=== PATIENT | female | born 1985 | race Caucasian/White ===

== ENCOUNTER 2020-01-13 15:34 | Outpatient (REF) | payer MEDICAID, SELFPAY | END 2020-01-13 15:35 | disposition home or self-care (01) | LOC: HO.LAB 15:34 | PROVIDERS: PCP Family Medicine; Visit Provider Internal Medicine | DX: Z20.828 Contact with and (suspected) exposure to other viral communicable diseases (principal) | CPT/HCPCS: 87635 ==

== ENCOUNTER → 2020-02-03 11:19 | Outpatient (BNVA) | payer MEDICAID, SELFPAY | PROVIDERS: Visit Provider Advanced Practice Midwife | DX: Z76.89 Persons encountering health services in other specified circumstances (principal) ==

== ENCOUNTER → 2020-04-03 11:07 | Outpatient (BNVA) | payer MEDICAID, SELFPAY | PROVIDERS: PCP Family Medicine; Visit Provider Advanced Practice Midwife | DX: Z76.89 Persons encountering health services in other specified circumstances (principal) ==

== ENCOUNTER 2020-04-07 15:48 | Outpatient (REF) | payer MEDICAID, SELFPAY ==
--- NOTE | 2020-04-07 | US_ITS ---
EXAMINATION: ULTRASOUND PELVIS COMPLETE. CLINICAL INFORMATION: Right ovarian cyst. COMPARISON: Ultrasound pelvis 11/09/2019 TECHNIQUE: Transabdominal and transvaginal ultrasound pelvis is performed. FINDINGS: The uterus is anteverted and anteflexed measuring 7.0 cm in length, 3.1 cm in AP and 4.4 cm in transverse dimension. The endometrial thickness is 0.3 cm with trace free fluid. There are small nabothian cysts seen in the cervix. The right ovary measures 2.2 x 1.0 x 2.3 cm and volume 2.7 mL. There is anechoic cyst with peripheral echogenic nodular area in the right adnexa exophytic to ovary measuring 2.4 x 2.1 x 2.0 cm. The left ovary measures 2.7 x 1.8 x 2.3 cm and volume 5.9 mL. There is corpus luteal cyst measuring 1.7 x 1.4 x 1.7 cm. There is no free fluid in the cul-de-sac. US/US pelvic complete IMPRESSION: 1. Multiple small nabothian cysts in the cervix region. 2. Trace free fluid within the endometrial canal otherwise the uterus is unremarkable. 3. Right ovarian 2.4 cm cyst with an echogenic nodular area in the periphery. Previously the cyst measures 2.5 cm. 4. Heterogenous appearing left ovarian cyst likely hemorrhagic or corpus luteal cyst. It measures 1.7 cm. Previously it measured 1.4 cm
--- NOTE | 2020-04-07 | US_ITS ---
EXAMINATION: ULTRASOUND PELVIS COMPLETE. CLINICAL INFORMATION: Right ovarian cyst. COMPARISON: Ultrasound pelvis 11/09/2019 TECHNIQUE: Transabdominal and transvaginal ultrasound pelvis is performed. FINDINGS: The uterus is anteverted and anteflexed measuring 7.0 cm in length, 3.1 cm in AP and 4.4 cm in transverse dimension. The endometrial thickness is 0.3 cm with trace free fluid. There are small nabothian cysts seen in the cervix. The right ovary measures 2.2 x 1.0 x 2.3 cm and volume 2.7 mL. There is anechoic cyst with peripheral echogenic nodular area in the right adnexa exophytic to ovary measuring 2.4 x 2.1 x 2.0 cm. The left ovary measures 2.7 x 1.8 x 2.3 cm and volume 5.9 mL. There is corpus luteal cyst measuring 1.7 x 1.4 x 1.7 cm. There is no free fluid in the cul-de-sac. US/US transvaginal IMPRESSION: 1. Multiple small nabothian cysts in the cervix region. 2. Trace free fluid within the endometrial canal otherwise the uterus is unremarkable. 3. Right ovarian 2.4 cm cyst with an echogenic nodular area in the periphery. Previously the cyst measures 2.5 cm. 4. Heterogenous appearing left ovarian cyst likely hemorrhagic or corpus luteal cyst. It measures 1.7 cm. Previously it measured 1.4 cm
== END 2020-04-07 15:49 | disposition home or self-care (01) ==
LOC: HO.US 15:48
PROVIDERS: Visit Provider Advanced Practice Midwife
DX: N83.201 Unspecified ovarian cyst, right side (principal)
CPT/HCPCS: 76830; 76856

== ENCOUNTER → 2020-04-14 15:40 | Outpatient (BNVA) | payer MEDICAID, SELFPAY | PROVIDERS: Visit Provider Advanced Practice Midwife ==

== ENCOUNTER → 2020-04-15 15:16 | Outpatient (BNVA) | payer MEDICAID, SELFPAY | PROVIDERS: Visit Provider Advanced Practice Midwife | DX: Z30.42 Encounter for surveillance of injectable contraceptive (principal) | CPT/HCPCS: 96372; 99211; J1050 ==

== ENCOUNTER → 2020-04-22 15:47 | Outpatient (BNVA) | payer MEDICAID, SELFPAY | PROVIDERS: Visit Provider Nurse Practitioner | DX: Z76.89 Persons encountering health services in other specified circumstances (principal) ==

== ENCOUNTER 2020-04-24 16:03 | Outpatient (REF) | payer MEDICAID, SELFPAY ==
[2020-04-24 17:01] LABS: MANUAL DIFF FLAG NO
[2020-04-24 17:12] LABS: Basophils Percent Auto 0.5 % (0-2); Eosinophils Absolute Auto 0.1 X10*3/uL (0.0-0.4); Eosinophils Percent Auto 1.8 % (0-4); Hematocrit 37.2 % (37-47); Imm Gran Abs Auto 0.01 X10*3/uL (0.00-0.03); Imm Gran Pct Auto 0.2 % (0.0-0.4); Lymphocytes Absolute Auto 2.9 X10*3/uL (1.2-4.9); Mean Corpuscular HGB Conc 32.3 g/dl (31.0-35.0); Mean Corpuscular Hemoglobin 28.9 pg (27.0-33.0); Mean Corpuscular Volume 89.6 fL (80-98); Mean Platelet Volume 11.2 fL (9.4-12.3); Monocytes Absolute Auto 0.4 X10*3/uL (0.1-1.2); Monocytes Percent Auto 5.3 % (2-11); Neutrophils Absolute Auto 3.2 X10*3/uL (2.0-8.3); Neutrophils Percent Auto 48.2 % (45-73); Platelet Count 228 X10*3/uL (160-400); Red Blood Count 4.15 X10*6/uL (4.20-5.50); Red Cell Distribution Width 13.4 % (11.0-16.0); White Blood Count 6.6 X10*3/uL (4.8-10.8)
[2020-04-24 17:57] LABS: Thyroid Stimulating Hormone 1.05 uIU/mL (0.32-4.0)
[2020-04-25 09:27] LABS: CA-125 7 U/mL (<35)
== END 2020-04-24 16:04 | disposition home or self-care (01) ==
LOC: HO.LAB 16:03
PROVIDERS: Absent Provider Advanced Practice Midwife; PCP Family Medicine; Visit Provider Nurse Practitioner
DX: N83.201 Unspecified ovarian cyst, right side (principal); R10.9 Unspecified abdominal pain; N92.1 Excessive and frequent menstruation with irregular cycle; D64.9 Anemia, unspecified
CPT/HCPCS: 36415; 84443; 85025; 86304

== ENCOUNTER 2020-04-27 | Outpatient (REF) | payer MEDICAID, SELFPAY | END 2020-04-27 00:01 | disposition home or self-care (01) | LOC: HO.LNP | PROVIDERS: Visit Provider Nurse Practitioner | DX: R10.9 Unspecified abdominal pain (principal) | CPT/HCPCS: 87338 ==

== ENCOUNTER → 2020-05-01 15:45 | Outpatient (BNVA) | payer MEDICAID, SELFPAY | PROVIDERS: PCP Family Medicine; Visit Provider Advanced Practice Midwife ==

== ENCOUNTER 2020-05-05 16:51 | Emergency (ER) | payer MEDICAID, SELFPAY ==
--- NOTE | ~2020-05-05 | US_ITS ---
EXAMINATION: ULTRASOUND PELVIS COMPLETE. CLINICAL INFORMATION: Menorrhagia. COMPARISON: 04/07/2020 and 11/09/2019 TECHNIQUE: Transabdominal and transvaginal ultrasound pelvis is performed utilizing grayscale and color Doppler technique. FINDINGS: Uterus is normal in size and configuration measuring 7.2 x 4.2 x 5.2 cm. There is fluid and debris (likely clock) within the endometrial canal, rendering accurate measurement of the endometrial signature is difficult, however does not appear thickened and measures approximately 2 mm in bilayer thickness. Cervix contains pulmonary team cysts but is otherwise unremarkable. Ovaries are normal in size and appearance measuring 4.4 x 3.5 x 2.4 cm on the right and 2.2 x 2.2 x 1.6 cm and the left. There is a 2.2 cm simple cyst within the right ovary. No suspicious ovarian or adnexal cyst/mass. No free fluid. US/US pelvic complete IMPRESSION: * Fluid and debris likely representing clot present within the endometrial canal. No blood flow within the echogenic debris within the uterus to suggest that it represents viable tissue such as a polyp or mass. * Physiologic ovarian follicles present bilaterally. No suspicious adnexal cyst or mass.
--- NOTE | ~2020-05-05 | US_ITS ---
EXAMINATION: ULTRASOUND PELVIS COMPLETE. CLINICAL INFORMATION: Menorrhagia. COMPARISON: 04/07/2020 and 11/09/2019 TECHNIQUE: Transabdominal and transvaginal ultrasound pelvis is performed utilizing grayscale and color Doppler technique. FINDINGS: Uterus is normal in size and configuration measuring 7.2 x 4.2 x 5.2 cm. There is fluid and debris (likely clock) within the endometrial canal, rendering accurate measurement of the endometrial signature is difficult, however does not appear thickened and measures approximately 2 mm in bilayer thickness. Cervix contains pulmonary team cysts but is otherwise unremarkable. Ovaries are normal in size and appearance measuring 4.4 x 3.5 x 2.4 cm on the right and 2.2 x 2.2 x 1.6 cm and the left. There is a 2.2 cm simple cyst within the right ovary. No suspicious ovarian or adnexal cyst/mass. No free fluid. US/US transvaginal IMPRESSION: * Fluid and debris likely representing clot present within the endometrial canal. No blood flow within the echogenic debris within the uterus to suggest that it represents viable tissue such as a polyp or mass. * Physiologic ovarian follicles present bilaterally. No suspicious adnexal cyst or mass.
[2020-05-05 17:03] VITALS: BP 137/76; PULSE 80; RESP 18; TEMP 36.8; O2SAT 99; BMI 29.3
--- NOTE | 2020-05-05 18:31 | ED.FEMALEGU ---
HPI - Female Genitourinary General Chief complaint: Vaginal Bleeding Stated complaint: heavy menstrual bleeding Source: patient Mode of arrival: ambulatory Limitations: no limitations History of Present Illness HPI Narrative: 34-year-old female with past medical history of ovarian cysts, anemia, menorrhagia, GERD, asthma, depression, anxiety, and migraines presents with excessive vaginal bleeding for 10 days. She states that this. Is much longer than normal, has been going through 2-4 pads per hour since last Monday, feels dizzy, weak, and nauseous. MD elicited complaint: vaginal bleeding Onset (ago): day(s) (10) Location of symptoms: vaginal Severity: severe Quality of pain: cramping and aching Consistency: constant Vaginal discharge: none Vaginal bleeding: heavy, dark red, clots, # pads per hour (2-4) and # pads per day (20) Relieving factors: none Associated symptoms: abdominal pain, weakness and nausea Treatment prior to arrival: NSAIDs Sexual activity: No Patient : No Related Data : 3 Para: 3 Total number of abortions (spontaneous and elective): 0 Home Medications Medication Instructions Recorded Confirmed albuterol sulfate 90 mcg/actuation 1 inh INHALATION QID 01/15/20 01/15/20 aerosol inhaler amitriptyline 10 mg tablet 10 mg PO DAILY 01/15/20 01/15/20 [id number] 250 1 tab PO Q4-6H PRN 01/15/20 01/15/20 mg-250 mg-65 mg tablet cholecalciferol (vitamin D3) 25 25 mcg PO DAILY 01/15/20 01/15/20 mcg (1,000 unit) tablet cyclobenzaprine 10 mg tablet 10 mg PO BEDTIME 01/15/20 01/15/20 famotidine 20 mg tablet 20 mg PO BID 01/15/20 01/15/20 fluticasone propionate 50 1 spray INTRANASAL DAILY 01/15/20 01/15/20 mcg/actuation nasal spray,suspension ketoconazole 2 % topical cream 1 applic TOPICAL DAILY 01/15/20 01/15/20 loratadine 10 mg tablet 10 mg PO DAILY 01/15/20 01/15/20 montelukast 10 mg tablet 10 mg PO BEDTIME 01/15/20 01/15/20 ondansetron HCl 4 mg tablet 4 mg PO Q8H 01/15/20 01/15/20 sumatriptan succinate 50 mg tablet 50 mg PO Q2-4H PRN 01/15/20 01/15/20 trazodone 50 mg tablet 25 mg PO DAILY 01/15/20 01/15/20 Previous Rx's Medication Instructions Recorded dicyclomine 20 mg tablet 20 mg PO QID 30 Days #120 tab 04/22/20 Allergies Allergy/AdvReac Type Severity Reaction Status Date / Time No Known Allergies Allergy Verified 04/14/20 16:06 [No Known Allergies*] Review of Systems Review of Systems: Constitutional: No Fever, No Chills ENT/Mouth: No sore throat, No Rhinorrhea Eyes: No Eye Pain, No Redness Cardiovascular: No Chest Pain, No SOB Respiratory: No Cough, No Sputum, No Wheezing Gastrointestinal: positive Nausea, No Vomiting, No Diarrhea, positive abdominal pain, Genitourinary: positive irregular bleeding, No Dysuria, No Urinary Frequency, positive pelvic pain Musculoskeletal: No Myalgias Skin: No rash Neuro: Positive Weakness, No Headache Psych: No Anxiety/Panic, No Depression Heme/Lymph: No bruising, No Lymphadenopathy Endocrine: No Polyuria, No Polydipsia Yes all other systems are reviewed and are negative [facility] Past Medical History Surgical History Hx of tubal ligation : 3 Para: 3 Total number of abortions (spontaneous and elective): 0 Family History Family History Mother Diabetes HTN (hypertension) Asthma Brother Asthma Social History Social History Household Members: Children Alcohol intake: never Smoking Status: Former smoker Advance Directives: No Advance Directives Information Provided: No Current occupational status: employed Current occupation: [employer] Sexual orientation: Straight/Heterosexual Gender identity: female Physical Exam Vital Signs: Vital Signs: Last Vital Signs Temp 98.2 F 05/05/20 17:03 Pulse 80 05/05/20 17:03 Resp 18 05/05/20 17:03 BP 137/76 05/05/20 17:03 Pulse Ox 99 05/05/20 17:03 Body Mass Index 29.3 Appearance: Alert. Oriented X3. No acute distress. Eyes: Pupils equal, round and reactive to light. ENT: Pharynx normal. Neck: Normal inspection. Neck supple. CVS: Normal heart rate and rhythm. Pulses normal. Respiratory: No respiratory distress. Breath sounds normal. Abdomen: Soft and nontender. Skin: Skin warm and dry. Normal skin color. Normal skin turgor. Extremities: No lower extremity edema. Neuro: No motor deficit. No sensory deficit. : External Female Exam: normal external appearance and normal appearance of the urethra Speculum Exam - Vagina: normal appearance of the vagina, normal palpation and vaginal bleeding Speculum Exam - Cervix: normal appearance of the cervix and normal palpation Bimanual exam- vagina & uterus: normal bimanual exam, normal palpation, normal palpation and uterine mobility normal Bimanual Exam- Adnexa, other: normal adnexae OB/external & speculum: vaginal bleeding Course Course Course Narrative: 34-year-old female with past medical history of menorrhagia, ovarian cyst and fibroids presents 10 days of excessive vaginal bleeding. Plan of care is for CBC, Chem 7, type and screen, and pelvic ultrasound. Pelvic exam was normal with the exception of scant dark red bleeding, no tissue in the cervical os or vault. CBC shows H&H of 11.3/34.2 which is better than her prior values. Pelvic ultrasound negative for or findings needing emergent intervention. 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 Patient verbalized understanding of and agrees to plan of care discharge home. MDM - Female Genitourinary Differential Diagnosis Differential diagnosis: Likely urinary tract infection, cervicitis, ruptured ovarian cyst, cystitis and dysmenorrhea Medical Records Attestation: I reviewed the patient's medical records. Lab Data Attestation: I reviewed the patient's lab results. Result diagrams: 05/05/20 18:58 05/05/20 18:58 Labs: Lab Results 05/05/20 05/05/20 05/05/20 Range/Units 18:58 18:58 18:58 WBC 6.9 (4.8-10.8) X10*3/uL RBC 3.85 L (4.20-5.50) X10*6/uL Hgb 11.3 L (12.0-16.0) g/dl Hct 34.2 L (37-47) % MCV 88.8 (80-98) fL MCH 29.4 (27.0-33.0) pg MCHC 33.0 (31.0-35.0) g/dl RDW 12.8 (11.0-16.0) % Plt Count 225 (160-400) X10*3/uL MPV 10.7 (9.4-12.3) fL Immature Gran % (Auto) 0.1 (0.0-0.4) % Neut % (Auto) 45.3 (45-73) % Lymph % (Auto) 47.0 H (20-40) % [place] % (Auto) 5.7 (2-11) % Eos % (Auto) 1.5 (0-4) % Baso % (Auto) 0.4 (0-2) % Lymph # (Auto) 3.2 (1.2-4.9) X10*3/uL [place] # (Auto) 0.4 (0.1-1.2) X10*3/uL Eos # (Auto) 0.1 (0.0-0.4) X10*3/uL Baso # (Auto) 0.0 (0.0-0.2) X10*3/uL Abs Immat Gran (auto) 0.01 (0.00-0.03) X10*3/uL Absolute Neuts (auto) 3.1 (2.0-8.3) X10*3/uL Absolute Nucleated RBC 0.000 (0.0-0.012) X10*3/uL Nucleated RBC % (auto) 0.0 (0.0-0.2) /100WBC PT 14.1 H (10.8-13.0) SEC INR 1.2 H (0.9-1.1) APTT 32.7 (24.1-38.0) SEC Sodium 139 (135-145) mmol/L Potassium 3.7 (3.3-5.1) mmol/L Chloride 107 (96-108) mmol/L Carbon Dioxide 23 (22-29) mmol/L Anion Gap 13 (12-20) BUN 12 (9-16) mg/dL Creatinine 0.80 (0.5-1.4) mg/dL Estim Creat Clear Calc 109.3 Estimated GFR > 60 Random Glucose 90 (60-115) mg/dL Calcium 9.1 (8.4-10.2) mg/dL Beta HCG, Quant < 2 mIU/mL Urine Color Urine Appearance Urine pH (5.0-8.0) Ur Specific [place] (1.005-1.025) Urine Protein (NEG-TRACE) MG/DL Urine Glucose (UA) (NEG) MG/DL Urine Ketones (NEG) MG/DL Urine Blood (NEG) Urine Nitrite (NEG) Ur Leukocyte Esterase (NEG) Urine RBC (0) /HPF Urine WBC (0-4) /HPF Ur Squamous Epith Cells /LPF Urine Bacteria /LPF Blood Type Antibody Screen 05/05/20 05/05/20 Range/Units 18:58 21:08 WBC (4.8-10.8) X10*3/uL RBC (4.20-5.50) X10*6/uL Hgb (12.0-16.0) g/dl Hct (37-47) % MCV (80-98) fL MCH (27.0-33.0) pg MCHC (31.0-35.0) g/dl RDW (11.0-16.0) % Plt Count (160-400) X10*3/uL MPV (9.4-12.3) fL Immature Gran % (Auto) (0.0-0.4) % Neut % (Auto) (45-73) % Lymph % (Auto) (20-40) % [place] % (Auto) (2-11) % Eos % (Auto) (0-4) % Baso % (Auto) (0-2) % Lymph # (Auto) (1.2-4.9) X10*3/uL [place] # (Auto) (0.1-1.2) X10*3/uL Eos # (Auto) (0.0-0.4) X10*3/uL Baso # (Auto) (0.0-0.2) X10*3/uL Abs Immat Gran (auto) (0.00-0.03) X10*3/uL Absolute Neuts (auto) (2.0-8.3) X10*3/uL Absolute Nucleated RBC (0.0-0.012) X10*3/uL Nucleated RBC % (auto) (0.0-0.2) /100WBC PT (10.8-13.0) SEC INR (0.9-1.1) APTT (24.1-38.0) SEC Sodium (135-145) mmol/L Potassium (3.3-5.1) mmol/L Chloride (96-108) mmol/L Carbon Dioxide (22-29) mmol/L Anion Gap (12-20) BUN (9-16) mg/dL Creatinine (0.5-1.4) mg/dL Estim Creat Clear Calc Estimated GFR Random Glucose (60-115) mg/dL Calcium (8.4-10.2) mg/dL Beta HCG, Quant mIU/mL Urine Color YELLOW Urine Appearance CLEAR Urine pH 6.0 (5.0-8.0) Ur Specific [place] 1.025 (1.005-1.025) Urine Protein NEG (NEG-TRACE) MG/DL Urine Glucose (UA) NEG (NEG) MG/DL Urine Ketones 15 (NEG) MG/DL Urine Blood 2+ H (NEG) Urine Nitrite NEG (NEG) Ur Leukocyte Esterase NEG (NEG) Urine RBC 0-2 (0) /HPF Urine WBC 0 (0-4) /HPF Ur Squamous Epith Cells 1+ /LPF Urine Bacteria NONE /LPF Blood Type O Positive Antibody Screen NEGATIVE Imaging Data Pelvic ultrasound: Attestation: I personally reviewed and interpreted this imaging study as follows: Radiologist's impression: EXAMINATION: ULTRASOUND PELVIS COMPLETE. CLINICAL INFORMATION: Menorrhagia. COMPARISON: 04/07/2020 and 11/09/2019 TECHNIQUE: Transabdominal and transvaginal ultrasound pelvis is performed utilizing grayscale and color Doppler technique. FINDINGS: Uterus is normal in size and configuration measuring 7.2 x 4.2 x 5.2 cm. There is fluid and debris (likely clock) within the endometrial canal, rendering accurate measurement of the endometrial signature is difficult, however does not appear thickened and measures approximately 2 mm in bilayer thickness. Cervix contains pulmonary team cysts but is otherwise unremarkable. Ovaries are normal in size and appearance measuring 4.4 x 3.5 x 2.4 cm on the right and 2.2 x 2.2 x 1.6 cm and the left. There is a 2.2 cm simple cyst within the right ovary. No suspicious ovarian or adnexal cyst/mass. No free fluid. US/US transvaginal IMPRESSION: * Fluid and debris likely representing clot present within the endometrial canal. No blood flow within the echogenic debris within the uterus to suggest that it represents viable tissue such as a polyp or mass. * Physiologic ovarian follicles present bilaterally. No suspicious adnexal cyst or mass. ECG Data Attestation: I personally reviewed and interpreted this ECG as follows: ECG interpretation date: 05/05/20 ECG interpretation time: 19:50 Interpretation: Ventricular rate 63 beats per minute, MI 128, QRS 98, QTC 420, QTC 429, normal sinus rhythm with sinus arrhythmia, possible left atrial enlargement, borderline EKG, prior EKGs available secondary to system 130 error Discharge Plan Discharge Clinical Impression: Right ovarian cyst Ovarian cyst Qualifiers: Laterality: right Qualified Code(s): N83.201 - Unspecified ovarian cyst, right side Heavy menstrual bleeding Qualifiers: Menorrhagia type: with irregular cycle Qualified Code(s): N92.1 - Excessive and frequent menstruation with irregular cycle Patient Disposition: Home, Self-Care Instructions: Dysfunctional Uterine Bleeding (ED), Ovarian Cyst (ED), Menorrhagia (ED) Additional Instructions: You were evaluated for heavy menstrual bleeding. Pelvic ultrasound shows chronic ovarian cyst, with Fluid and debris likely representing clot present within the endometrial canal. No blood flow within the echogenic debris within the uterus to suggest that it represents viable tissue such as a polyp or mass. Please follow-up with your OBGYN as an outpatient for further workup. Thank you for choosing this emergency department for evaluation. Please follow-up with primary care physician as needed. Return to the emergency department for any new, concerning, or worsening symptoms. Prescriptions: No Action famotidine [Acid Contact Person (famotidine)] 20 mg tablet 20 mg PO BID RF: 0 albuterol sulfate [Proventil HFA] 90 mcg/actuation HFA aerosol inhaler 1 inh inhalation QID RF: 0 fluticasone propionate [Flonase Allergy Relief] 50 mcg/actuation spray,suspension 1 spray intranasal DAILY RF: 0 montelukast [Singulair] 10 mg tablet 10 mg PO BEDTIME RF: 0 amitriptyline 10 mg tablet 10 mg PO DAILY RF: 0 loratadine [Allergy Relief (loratadine)] 10 mg tablet 10 mg PO DAILY RF: 0 trazodone 50 mg tablet 25 mg PO DAILY RF: 0 ketoconazole 2 % cream 1 applic topical DAILY RF: 0 cyclobenzaprine 10 mg tablet 10 mg PO BEDTIME RF: 0 cholecalciferol (vitamin D3) 25 mcg (1,000 unit) tablet 25 mcg PO DAILY RF: 0 Excedrin Migraine 250-250-65 mg tablet 1 tab PO Q4-6H PRNRF: 0 ondansetron HCl [Zofran] 4 mg tablet 4 mg PO Q8H RF: 0 sumatriptan succinate 50 mg tablet 50 mg PO Q2-4H PRNRF: 0 dicyclomine 20 mg tablet 20 mg PO QID 30 Days Qty: 120 RF: 3 Interventions: ED Discharge Assessment Last Done: 05/05/20 21:17 Discharge Date/Time: 05/05/20 21:45
--- NOTE | 2020-05-05 18:41 | ECG_ITS ---
Test Reason : ABD PAIN Blood Pressure : / mmHG Vent. Rate : 063 BPM Atrial Rate : 063 BPM P-R Int : 128 ms QRS Dur : 098 ms QT Int : 420 ms P-R-T Axes : 073 068 068 degrees QTc Int : 429 ms Normal sinus rhythm with sinus arrhythmia Possible Left atrial enlargement Borderline ECG No significant changes when compared with the previous EKG of 19 aug 2016 Referred By: Alma Delia Roberto Electronically Signed By:DONATO BABB
[2020-05-05 19:06] LABS: MANUAL DIFF FLAG NO
[2020-05-05 19:07] LABS: Basophils Percent Auto 0.4 % (0-2); Eosinophils Absolute Auto 0.1 X10*3/uL (0.0-0.4); Eosinophils Percent Auto 1.5 % (0-4); Hematocrit 34.2 % (37-47); Hemoglobin 11.3 g/dl (12.0-16.0); Imm Gran Abs Auto 0.01 X10*3/uL (0.00-0.03); Imm Gran Pct Auto 0.1 % (0.0-0.4); Lymphocytes Absolute Auto 3.2 X10*3/uL (1.2-4.9); Mean Corpuscular Hemoglobin 29.4 pg (27.0-33.0); Mean Corpuscular Volume 88.8 fL (80-98); Mean Platelet Volume 10.7 fL (9.4-12.3); Monocytes Absolute Auto 0.4 X10*3/uL (0.1-1.2); Monocytes Percent Auto 5.7 % (2-11); Neutrophils Absolute Auto 3.1 X10*3/uL (2.0-8.3); Neutrophils Percent Auto 45.3 % (45-73); Platelet Count 225 X10*3/uL (160-400); Red Blood Count 3.85 X10*6/uL (4.20-5.50); Red Cell Distribution Width 12.8 % (11.0-16.0); White Blood Count 6.9 X10*3/uL (4.8-10.8)
[2020-05-05 19:12] LABS: INTERNATIONAL NORM RATIO 1.2 (0.9-1.1); Prothrombin Time 14.1 SEC (10.8-13.0)
[2020-05-05 19:15] LABS: Partial Thromboplastin Time 32.7 SEC (24.1-38.0)
[2020-05-05 19:26] LABS: Anion Gap 13 (12-20); Blood Urea Nitrogen 12 mg/dL (9-16); Calcium 9.1 mg/dL (8.4-10.2); Carbon Dioxide 23 mmol/L (22-29); Chloride 107 mmol/L (96-108); Creatinine Clr Calc Pharmacy 109.3; Estimated Glomerular Filt Rate > 60; Glucose Random 90 mg/dL (60-115); Potassium 3.7 mmol/L (3.3-5.1); Sodium 139 mmol/L (135-145)
[2020-05-05 19:34] LABS: HCG Quantitative < 2 mIU/mL
[2020-05-05 21:18] LABS: Appearance Urine CLEAR; Color Urine YELLOW; Glucose Urine UA NEG (NEG); Leukocyte Esterase Urine NEG (NEG); Nitrite Urine NEG (NEG); Specific Gravity - Urine 1.025 (1.005-1.025); Urine Blood 2+ (NEG); Urine Ketones 15 MG/DL (NEG); Urine Protein NEG (NEG-TRACE)
[2020-05-05 21:24] LABS: RBC Urine 0-2 /HPF (0); Squamous Epithelial Cell Urine 1+ /LPF; WBC Urine 0 /HPF (0-4)
== END 2020-05-05 21:45 | disposition home or self-care (01) ==
PROVIDERS: Nurse Practitioner Family; Emergency Provider Emergency Medicine; PCP Family Medicine
DX: N83.201 Unspecified ovarian cyst, right side (principal); N92.1 Excessive and frequent menstruation with irregular cycle; Z87.891 Personal history of nicotine dependence; Z79.899 Other long term (current) drug therapy
CPT/HCPCS: 36415; 76830; 76856; 80048; 81001; 84702; 85025; 85610; 85730; 86850; 86900; 86901; 93005; 99283; 99284

== ENCOUNTER 2020-05-07 08:37 | Outpatient (REF) | payer MEDICAID, SELFPAY ==
--- NOTE | ~2020-05-07 | FL_ITS ---
Small bowel series is described in single combined report along with the upper GI under accession number [id number].
--- NOTE | ~2020-05-07 | FL_ITS ---
EXAMINATION: FL UPPER GI SERIES AND SMALL BOWEL SERIES CLINICAL INFORMATION: R10.9 - Unspecified abdominal pain COMPARISON: Pelvic ultrasound 05/05/2020 TECHNIQUE: Upper GI series and small bowel follow-through and are performed using fluoroscopic evaluation in addition to multiple fluoroscopic spot views and overhead images. The patient is imaged both upright and prone and using both thick and thin barium sulfate along with effervescent granules. UGI: Fluoroscopy time: 0.9 minutes DAP: 6.44 Gycm2 Fluoroscopic spot images: 13 SBS: Fluoroscopy time: 0.3 minutes DAP: 17.79 Gycm2 Fluoroscopic spot images: 2 FINDINGS: The esophagus has no obstruction, stricture, ulceration, or hernia. There is gastroesophageal reflux during the water siphon test to the lower thoracic esophagus. The stomach shows no thickened folds or ulcer crater or outlet obstruction. The duodenal bulb is pliable and without ulcer crater or scarring. The post bulbar duodenum is unremarkable. Contrast is followed through the small bowel and reaches the colon within 45 minutes. There is no small bowel dilatation, angulated or tethered loops, or abnormal thickening of small bowel folds. There are no fixed or rigid segments of small bowel on fluoroscopic exam with compression. The terminal ileum appears normal. FL/FL upper GI w air IMPRESSION: 1. Gastroesophageal reflux during water siphon test to lower thoracic esophagus. 2. Otherwise unremarkable upper GI and small bowel follow-through.
== END 2020-05-07 08:38 | disposition home or self-care (01) ==
LOC: HO.XRAY 08:37
PROVIDERS: Visit Provider Nurse Practitioner
DX: R10.9 Unspecified abdominal pain (principal)
CPT/HCPCS: 74246; 74248; 74250

== ENCOUNTER → 2020-05-13 15:50 | Outpatient (BNVA) | payer MEDICAID, SELFPAY | PROVIDERS: PCP Family Medicine; Visit Provider Nurse Practitioner ==

== ENCOUNTER 2020-05-22 19:01 | Emergency (ER) | payer MEDICAID, SELFPAY ==
--- NOTE | ~2020-05-22 | XR_ITS ---
EXAMINATION: XR CHEST CLINICAL INFORMATION: Chest pain COMPARISON: None TECHNIQUE: Frontal view of the chest was obtained. FINDINGS: No significant abnormality is noted involving the heart, lungs, mediastinum, bony thorax or soft tissues. XR/XR chest 1V IMPRESSION: Unremarkable examination.
[2020-05-22 19:10] VITALS: BP 152/100; PULSE 96; RESP 18; TEMP 36.9; O2SAT 110; BMI 27.9
--- NOTE | 2020-05-22 21:31 | ECG_ITS ---
Test Reason : PALPITATIONS Blood Pressure : / mmHG Vent. Rate : 093 BPM Atrial Rate : 093 BPM P-R Int : 124 ms QRS Dur : 088 ms QT Int : 338 ms P-R-T Axes : 068 058 055 degrees QTc Int : 420 ms Normal sinus rhythm Possible Left atrial enlargement Borderline ECG When compared with ECG of 05-MAY-2020 19:50, No significant change was found Referred By: Moira Nolan Electronically Signed By:ADAM ALCALA MD
[2020-05-22 21:56] VITALS: BP 155/111; PULSE 73; RESP 16; TEMP 36.8; O2SAT 99
[2020-05-22 22:12] LABS: MANUAL DIFF FLAG NO
[2020-05-22 22:14] LABS: Basophils Percent Auto 0.4 % (0-2); Eosinophils Absolute Auto 0.1 X10*3/uL (0.0-0.4); Eosinophils Percent Auto 1.8 % (0-4); Hematocrit 39.4 % (37-47); Hemoglobin 13.2 g/dl (12.0-16.0); Imm Gran Abs Auto 0.01 X10*3/uL (0.00-0.03); Imm Gran Pct Auto 0.1 % (0.0-0.4); Lymphocytes Absolute Auto 3.2 X10*3/uL (1.2-4.9); Lymphocytes Percent Auto 44.4 % (20-40); Mean Corpuscular HGB Conc 33.5 g/dl (31.0-35.0); Mean Corpuscular Hemoglobin 29.5 pg (27.0-33.0); Mean Corpuscular Volume 87.9 fL (80-98); Mean Platelet Volume 10.3 fL (9.4-12.3); Monocytes Absolute Auto 0.5 X10*3/uL (0.1-1.2); Monocytes Percent Auto 6.5 % (2-11); Neutrophils Absolute Auto 3.4 X10*3/uL (2.0-8.3); Neutrophils Percent Auto 46.8 % (45-73); Platelet Count 251 X10*3/uL (160-400); Red Blood Count 4.48 X10*6/uL (4.20-5.50); White Blood Count 7.2 X10*3/uL (4.8-10.8)
--- NOTE | 2020-05-22 22:21 | ED_ITS ---
HPI - Chest Pain General Chief Complaint: Chest Pain Stated Complaint: palpitations Time Seen by Provider: 05/22/20 21:31 Source: patient Mode of arrival: ambulatory History of Present Illness HPI narrative: This is a 35-year-old female with history of IBS, fibromyalgia, migraines, palpitations, hypertension, asthma who presents with palpitations since approximately 11:00 a.m. this morning without associated fevers, chills, cough, recent travel, calf pain/swelling. Patient describes that she has not taken her hypertensive medications today and that she is currently having a left-sided headache as well that is typical in terms of presentation and progression with her underlying migraine pattern. Related Data Home Medications Medication Instructions Recorded Confirmed albuterol sulfate 90 mcg/actuation 1 inh INHALATION QID 01/15/20 01/15/20 aerosol inhaler amitriptyline 10 mg tablet 10 mg PO DAILY 01/15/20 01/15/20 pxlbhjl-yufozrlyhfeyg-nponfepx 250 1 tab PO Q4-6H PRN 01/15/20 01/15/20 mg-250 mg-65 mg tablet cholecalciferol (vitamin D3) 25 25 mcg PO DAILY 01/15/20 01/15/20 mcg (1,000 unit) tablet cyclobenzaprine 10 mg tablet 10 mg PO BEDTIME 01/15/20 01/15/20 famotidine 20 mg tablet 20 mg PO BID 01/15/20 01/15/20 fluticasone propionate 50 1 spray INTRANASAL DAILY 01/15/20 01/15/20 mcg/actuation nasal spray,suspension ketoconazole 2 % topical cream 1 applic TOPICAL DAILY 01/15/20 01/15/20 loratadine 10 mg tablet 10 mg PO DAILY 01/15/20 01/15/20 montelukast 10 mg tablet 10 mg PO BEDTIME 01/15/20 01/15/20 ondansetron HCl 4 mg tablet 4 mg PO Q8H 01/15/20 01/15/20 sumatriptan succinate 50 mg tablet 50 mg PO Q2-4H PRN 01/15/20 01/15/20 trazodone 50 mg tablet 25 mg PO DAILY 01/15/20 01/15/20 Previous Rx's Medication Instructions Recorded dicyclomine 20 mg tablet 20 mg PO QID 30 Days #120 tab 05/13/20 Allergies Allergy/AdvReac Type Severity Reaction Status Date / Time No Known Allergies Allergy Verified 05/13/20 16:03 [No Known Allergies*] Review of Systems Review of Systems: Pertinent positives and negatives as stated in HPI 10 point review of systems otherwise negative. [facility] Past Medical History Source: nursing notes reviewed Medical History (Updated 05/22/20 @ 23:51 by Moira Nolan MD) Asthma Fibromyalgia Hypertension IBS (irritable bowel syndrome) Migraines Surgical History Hx of tubal ligation Family History Family History Mother Diabetes HTN (hypertension) Asthma Brother Asthma Social History Social History Household Members: Children Alcohol intake: never Smoking Status: Former smoker Advance Directives: No Advance Directives Information Provided: No Current occupational status: employed Current occupation: [employer] Sexual orientation: Straight/Heterosexual Gender identity: female Physical Exam Vital Signs: Vital Signs: Last Vital Signs Temp 98.2 F 05/22/20 22:47 Pulse 80 05/22/20 22:47 Resp 18 05/22/20 22:47 BP 147/101 H 05/22/20 22:47 Pulse Ox 99 05/22/20 22:47 Body Mass Index 27.9 VITAL SIGNS: Reviewed. GENERAL: Well developed, well nourished, in no acute distress. HEAD: Normocephalic/atraumatic, EYES: PERRLA, EOMI EARS: Ext canals without abnormality, TMs non-bulging and non-erythematous NOSE: Nares patent bilateral OROPHARYNX: no oral lesions noted, posterior pharynx clear NECK: Supple, no adenopathy LUNGS: Normal breath sounds. No adventitious sounds or accessory muscle use. SpO2<99> CARDIOVASCULAR: Regular rate and rhythm without noted murmurs, no JVD or lower extremity edema. ABDOMEN: Soft, non-tender, non-distended with bowel sounds. SKIN: Inspection of the skin reveals no rashes NEUROLOGIC: Alert and oriented x 4. Strength and sensation to light touch were grossly intact x 4. Course Course Course Narrative: This is a 35-year-old female with history and clinical presentation consistent with noncompliance of blood pressure medication which may have contributed in part to patient's palpitations, will rule out electrolyte/infection/anemia as causes for palpitations as well as administer combination analgesics for headache. On review of all investigations and re-evaluation there are no acute findings to better explain patient's palpitations. EKG is negative for any acute findings and high sensitivity troponin is negative. Urinalysis is negative and on re- evaluation patient has had improvement her headache with combination analgesics and will be discharged home in stable condition. She is strongly recommended to take her home medication for her underlying medical conditions. MDM - Chest Pain Lab Data Result diagrams: 05/22/20 21:54 05/22/20 21:54 Labs: Lab Results 05/22/20 05/22/20 05/22/20 Range/Units 21:53 21:54 21:54 WBC 7.2 (4.8-10.8) X10*3/uL RBC 4.48 (4.20-5.50) X10*6/uL Hgb 13.2 (12.0-16.0) g/dl Hct 39.4 (37-47) % MCV 87.9 (80-98) fL MCH 29.5 (27.0-33.0) pg MCHC 33.5 (31.0-35.0) g/dl RDW 13.0 (11.0-16.0) % Plt Count 251 (160-400) X10*3/uL MPV 10.3 (9.4-12.3) fL Immature Gran % (Auto) 0.1 (0.0-0.4) % Neut % (Auto) 46.8 (45-73) % Lymph % (Auto) 44.4 H (20-40) % Grimes % (Auto) 6.5 (2-11) % Eos % (Auto) 1.8 (0-4) % Baso % (Auto) 0.4 (0-2) % Lymph # (Auto) 3.2 (1.2-4.9) X10*3/uL Grimes # (Auto) 0.5 (0.1-1.2) X10*3/uL Eos # (Auto) 0.1 (0.0-0.4) X10*3/uL Baso # (Auto) 0.0 (0.0-0.2) X10*3/uL Abs Immat Gran (auto) 0.01 (0.00-0.03) X10*3/uL Absolute Neuts (auto) 3.4 (2.0-8.3) X10*3/uL Absolute Nucleated RBC 0.000 (0.0-0.012) X10*3/uL Nucleated RBC % (auto) 0.0 (0.0-0.2) /100WBC Sodium 141 (135-145) mmol/L Potassium 4.1 (3.3-5.1) mmol/L Chloride 108 (96-108) mmol/L Carbon Dioxide 24 (22-29) mmol/L Anion Gap 13 (12-20) BUN 19 H D (9-16) mg/dL Creatinine 1.13 (0.5-1.4) mg/dL Estim Creat Clear Calc 74.8 Estimated GFR 55 Random Glucose 87 (60-115) mg/dL Calcium 9.1 (8.4-10.2) mg/dL Total Bilirubin 0.6 (0.0-1.0) mg/dL AST 14 (5-31) U/L ALT 12 (0-31) U/L Alkaline Phosphatase 46 (39-117) U/L Troponin I High Sens (<3.5-17.0) ng/L Total Protein 7.3 (6.5-8.0) g/dL Albumin 4.2 (3.5-5.0) g/dL Lipase 38 (8-78) U/L Urine Color Urine Appearance Urine pH (5.0-8.0) Ur Specific [place] (1.005-1.025) Urine Protein (NEG-TRACE) MG/DL Urine Glucose (UA) (NEG) MG/DL Urine Ketones (NEG) MG/DL Urine Blood (NEG) Urine Nitrite (NEG) Ur Leukocyte Esterase (NEG) 05/22/20 05/22/20 Range/Units 21:54 22:48 WBC (4.8-10.8) X10*3/uL RBC (4.20-5.50) X10*6/uL Hgb (12.0-16.0) g/dl Hct (37-47) % MCV (80-98) fL MCH (27.0-33.0) pg MCHC (31.0-35.0) g/dl RDW (11.0-16.0) % Plt Count (160-400) X10*3/uL MPV (9.4-12.3) fL Immature Gran % (Auto) (0.0-0.4) % Neut % (Auto) (45-73) % Lymph % (Auto) (20-40) % Grimes % (Auto) (2-11) % Eos % (Auto) (0-4) % Baso % (Auto) (0-2) % Lymph # (Auto) (1.2-4.9) X10*3/uL [place]imes # (Auto) (0.1-1.2) X10*3/uL Eos # (Auto) (0.0-0.4) X10*3/uL Baso # (Auto) (0.0-0.2) X10*3/uL Abs Immat Gran (auto) (0.00-0.03) X10*3/uL Absolute Neuts (auto) (2.0-8.3) X10*3/uL Absolute Nucleated RBC (0.0-0.012) X10*3/uL Nucleated RBC % (auto) (0.0-0.2) /100WBC Sodium (135-145) mmol/L Potassium (3.3-5.1) mmol/L Chloride (96-108) mmol/L Carbon Dioxide (22-29) mmol/L Anion Gap (12-20) BUN (9-16) mg/dL Creatinine (0.5-1.4) mg/dL Estim Creat Clear Calc Estimated GFR Random Glucose (60-115) mg/dL Calcium (8.4-10.2) mg/dL Total Bilirubin (0.0-1.0) mg/dL AST (5-31) U/L ALT (0-31) U/L Alkaline Phosphatase (39-117) U/L Troponin I High Sens < 3.5 (<3.5-17.0) ng/L Total Protein (6.5-8.0) g/dL Albumin (3.5-5.0) g/dL Lipase (8-78) U/L Urine Color YELLOW Urine Appearance CLEAR Urine pH 6.5 (5.0-8.0) Ur Specific [place] 1.020 (1.005-1.025) Urine Protein NEG (NEG-TRACE) MG/DL Urine Glucose (UA) NEG (NEG) MG/DL Urine Ketones NEG (NEG) MG/DL Urine Blood NEG (NEG) Urine Nitrite NEG (NEG) Ur Leukocyte Esterase NEG (NEG) ECG Data ECG #1: Attestation: I personally reviewed and interpreted this ECG as follows: Prior ECG tracings: available for review (05/05/2020 no acute changes on comparison.) Interpretation: Normal sinus rhythm, HR -93, no evidence of acute ischemia, SC/QRS/QTC are within normal limits. Discharge Plan Discharge Clinical Impression: Palpitations Hypertension Qualifiers: Hypertension type: unspecified Qualified Code(s): I10 - Essential (primary) hypertension Patient Disposition: Home, Self-Care Instructions: Heart Palpitations (ED), Migraine Headache (ED) Additional Instructions: 1. Please resume all home medications as prescribed for optimize control of your headaches, blood pressure. 2. Please follow up with the primary care provider in the next 2-3 days for re-evaluation. Do not hesitate to return to the emergency department if you experience any acute worsening of your symptoms. Prescriptions: No Action famotidine [Acid Waist Fitter (famotidine)] 20 mg tablet 20 mg PO BID RF: 0 albuterol sulfate [Proventil HFA] 90 mcg/actuation HFA aerosol inhaler 1 inh inhalation QID RF: 0 fluticasone propionate [Flonase Allergy Relief] 50 mcg/actuation spra y,suspension 1 spray intranasal DAILY RF: 0 montelukast [Singulair] 10 mg tablet 10 mg PO BEDTIME RF: 0 amitriptyline 10 mg tablet 10 mg PO DAILY RF: 0 loratadine [Allergy Relief (loratadine)] 10 mg tablet 10 mg PO DAILY RF: 0 trazodone 50 mg tablet 25 mg PO DAILY RF: 0 ketoconazole 2 % cream 1 applic topical DAILY RF: 0 cyclobenzaprine 10 mg tablet 10 mg PO BEDTIME RF: 0 cholecalciferol (vitamin D3) 25 mcg (1,000 unit) tablet 25 mcg PO DAILY RF: 0 Excedrin Migraine 250-250-65 mg tablet 1 tab PO Q4-6H PRNRF: 0 ondansetron HCl [Zofran] 4 mg tablet 4 mg PO Q8H RF: 0 sumatriptan succinate 50 mg tablet 50 mg PO Q2-4H PRNRF: 0 dicyclomine 20 mg tablet 20 mg PO QID 30 Days Qty: 120 RF: 3 Referrals: Lu Estrada MD [Primary Care Provider] - 2 days (Re-evaluation outpatient management blood pressure and seen here in the ER for palpitations with a negative workup.)
[2020-05-22 22:41] LABS: Lipase 38 U/L (8-78)
[2020-05-22 22:41] LABS: Alanine Aminotransferase 12 U/L (0-31); Albumin Level 4.2 g/dL (3.5-5.0); Alkaline Phosphatase 46 U/L (39-117); Anion Gap 13 (12-20); Aspartate Amino Transferase 14 U/L (5-31); Bilirubin Total 0.6 mg/dL (0.0-1.0); Blood Urea Nitrogen 19 mg/dL (9-16); Calcium 9.1 mg/dL (8.4-10.2); Carbon Dioxide 24 mmol/L (22-29); Chloride 108 mmol/L (96-108); Creatinine Clr Calc Pharmacy 74.8; Estimated Glomerular Filt Rate 55; Glucose Random 87 mg/dL (60-115); Potassium 4.1 mmol/L (3.3-5.1); Sodium 141 mmol/L (135-145); Total Protein 7.3 g/dL (6.5-8.0)
[2020-05-22 22:47] VITALS: BP 147/101; PULSE 80; RESP 18; TEMP 36.8; O2SAT 99
[2020-05-22 22:48] LABS: Troponin-I High Sensitivity < 3.5 ng/L (<3.5-17.0)
[2020-05-22 22:57] LABS: Glucose Urine UA NEG (NEG); Leukocyte Esterase Urine NEG (NEG); Nitrite Urine NEG (NEG); PH 6.5 (5.0-8.0); Urine Blood NEG (NEG); Urine Ketones NEG (NEG); Urine Protein NEG (NEG-TRACE)
[2020-05-22 23:08] LABS: Appearance Urine CLEAR; Color Urine YELLOW
[2020-05-22] MEDS: Ketorolac Tromethamine 15 MG/ML VIAL IVPUSH (23:28)
[2020-05-22] MEDS: Acetaminophen 325 MG TABLET 975 MG PO (23:28)
== END 2020-05-23 00:41 | disposition home or self-care (01) ==
PROVIDERS: Emergency Provider Student in an Organized Health Care Education/Training Program; PCP Family Medicine
DX: R00.2 Palpitations (principal); I10 Essential (primary) hypertension; G43.909 Migraine, unspecified, not intractable, without status migrainosus; J45.909 Unspecified asthma, uncomplicated; Z79.899 Other long term (current) drug therapy; Z87.891 Personal history of nicotine dependence
CPT/HCPCS: 36415; 71045; 80053; 81003; 83690; 84484; 85025; 93005; 96374; 99284; J1885

== ENCOUNTER 2020-05-24 20:00 | Emergency (ER) | payer MEDICAID, SELFPAY ==
[2020-05-24 20:08] VITALS: BP 152/100; PULSE 96; RESP 15; TEMP 36.6; O2SAT 97; BMI 28.0
--- NOTE | 2020-05-24 21:11 | ED.HA ---
HPI - Headache General Chief Complaint: Headache Stated Complaint: Palpitations/Headache Time Seen by Provider: 05/24/20 21:10 Source: patient Mode of arrival: ambulatory History of Present Illness HPI Narrative: This is a 35-year-old female who presents with left-sided paraspinal discomfort that radiates into her left shoulder and is exacerbated by head movements, but denies any associated fevers, chills, shortness of breath, ear pain, sore throat. Patient states that she woke up on Monday morning, took her blood pressure medication, and then shortly thereafter began experiencing this left-sided neck pain. She denies any associated visual or speech abnormalities. Related Data Home Medications Medication Instructions Recorded Confirmed albuterol sulfate 90 mcg/actuation 1 inh INHALATION QID 01/15/20 01/15/20 aerosol inhaler amitriptyline 10 mg tablet 10 mg PO DAILY 01/15/20 01/15/20 uaeicdr-aeoijiqpschbt-cdyhttcq 250 1 tab PO Q4-6H PRN 01/15/20 01/15/20 mg-250 mg-65 mg tablet cholecalciferol (vitamin D3) 25 25 mcg PO DAILY 01/15/20 01/15/20 mcg (1,000 unit) tablet cyclobenzaprine 10 mg tablet 10 mg PO BEDTIME 01/15/20 01/15/20 famotidine 20 mg tablet 20 mg PO BID 01/15/20 01/15/20 fluticasone propionate 50 1 spray INTRANASAL DAILY 01/15/20 01/15/20 mcg/actuation nasal spray,suspension ketoconazole 2 % topical cream 1 applic TOPICAL DAILY 01/15/20 01/15/20 loratadine 10 mg tablet 10 mg PO DAILY 01/15/20 01/15/20 montelukast 10 mg tablet 10 mg PO BEDTIME 01/15/20 01/15/20 ondansetron HCl 4 mg tablet 4 mg PO Q8H 01/15/20 01/15/20 sumatriptan succinate 50 mg tablet 50 mg PO Q2-4H PRN 01/15/20 01/15/20 trazodone 50 mg tablet 25 mg PO DAILY 01/15/20 01/15/20 Previous Rx's Medication Instructions Recorded dicyclomine 20 mg tablet 20 mg PO QID 30 Days #120 tab 05/13/20 cyclobenzaprine 10 mg PO BEDTIME PRN #3 tab 05/24/20 Allergies Allergy/AdvReac Type Severity Reaction Status Date / Time No Known Allergies Allergy Verified 05/13/20 16:03 [No Known Allergies*] Review of Systems Review of Systems: Pertinent positives and negatives as stated in HPI 10 point review of systems is otherwise negative. PMFSH Past Medical History Source: nursing notes reviewed Medical History Asthma Fibromyalgia Hypertension IBS (irritable bowel syndrome) Migraines Surgical History Hx of tubal ligation Family History Family History Mother Diabetes HTN (hypertension) Asthma Brother Asthma Social History Social History Household Members: Children Alcohol intake: never Smoking Status: Former smoker Smoked in Last 30 Days: No Use of substances other than those prescribed or required for medical reasons: No Advance Directives: No Advance Directives Information Provided: No Current occupational status: employed Current occupation: [employer] Sexual orientation: Straight/Heterosexual Gender identity: female Physical Exam Vital Signs: Vital Signs: Last Vital Signs Temp 98.1 F 05/24/20 21:46 Pulse 64 05/24/20 21:46 Resp 17 05/24/20 21:46 BP 137/86 05/24/20 21:46 Pulse Ox 99 05/24/20 21:46 Body Mass Index 28.0 VITAL SIGNS: Reviewed. GENERAL: Well developed, well nourished, in no acute distress. HEAD: Normocephalic/atraumatic EYES: PERRLA, EOMI intact without pain, no nystagmus EARS: Ext canals without abnormality, TMs non-bulging and non-erythematous NOSE: Nares patent bilateral OROPHARYNX: no oral lesions noted, posterior pharynx clear and non-erythematous without noted tonsillar enlargement/erythema/exudates NECK: No cervical midline tenderness, left cervical paraspinal tenderness with firmness that extends into left shoulder, Spurling's positive, otherwise Supple, no adenopathy LUNGS: Normal breath sounds. SpO2<99> CARDIOVASCULAR: Regular rate and rhythm without noted murmurs ABDOMEN: Soft, non-tender, non-distended with bowel sounds. SKIN: Inspection of the skin reveals no rashes NEUROLOGIC: Alert and oriented x 4. Strength and sensation to light touch were grossly intact x 4. Course Course Course Narrative: This is a 35-year-old female with history and clinical presentation most consistent with cervical radicular symptoms with a positive Spurling's and likely mild muscle spasm associated with this. Low clinical suspicion for intracranial pathologies, vascular abnormalities, or meningitis. Patient will be treated with a combination of analgesics and this was discussed with her at bedside. On re-evaluation patient is feeling much better and she will be discharged home in stable condition. Discharge Plan Discharge Clinical Impression: Cervical radiculopathy, Muscle spasm Patient Disposition: Home, Self-Care Instructions: Cervical Radiculopathy (ED), Muscle Spasm (ED) Additional Instructions: 1. Tylenol 1000 mg, orally, every 6 hours as needed for pain control. Do not exceed 4000 mg within 24 hours. 2. Ibuprofen 400 mg, orally with milk or food, every 6 hours as needed for pain control. Recommend that you take this medication with Tylenol for increased symptom control. 3. Lidocaine patch, this is available [id number] to every [facility], apply to area of maximal tenderness as directed on the outside packaging. 4. Please follow-up with your primary care provider in the next 2-3 days for re-evaluation and further outpatient management of your symptoms. Do not hesitate to return to the emergency department should you develop any acute worsening of your symptoms. Prescriptions: New cyclobenzaprine 10 mg tablet 10 mg PO BEDTIME PRN (Reason: muscle spasm) Qty: 3 RF: 0 No Action famotidine [Acid Typesetter Perforator Operator (famotidine)] 20 mg tablet 20 mg PO BID RF: 0 albuterol sulfate [Proventil HFA] 90 mcg/actuation HFA aerosol inhaler 1 inh inhalation QID RF: 0 fluticasone propionate [Flonase Allergy Relief] 50 mcg/actuation spray,suspension 1 spray intranasal DAILY RF: 0 montelukast [Singulair] 10 mg tablet 10 mg PO BEDTIME RF: 0 amitriptyline 10 mg tablet 10 mg PO DAILY RF: 0 loratadine [Allergy Relief (loratadine)] 10 mg tablet 10 mg PO DAILY RF: 0 trazodone 50 mg tablet 25 mg PO DAILY RF: 0 ketoconazole 2 % cream 1 applic topical DAILY RF: 0 cyclobenzaprine 10 mg tablet 10 mg PO BEDTIME RF: 0 cholecalciferol (vitamin D3) 25 mcg (1,000 unit) tablet 25 mcg PO DAILY RF: 0 Excedrin Migraine 250-250-65 mg tablet 1 tab PO Q4-6H PRNRF: 0 ondansetron HCl [Zofran] 4 mg tablet 4 mg PO Q8H RF: 0 sumatriptan succinate 50 mg tablet 50 mg PO Q2-4H PRNRF: 0 dicyclomine 20 mg tablet 20 mg PO QID 30 Days Qty: 120 RF: 3 Referrals: Lu Estrada MD [Primary Care Provider] - 2 days (Re-evaluation and outpatient management of suspected cervical radiculopathy with associated muscle spasm)
[2020-05-24] MEDS: Lidocaine 4 % Patch ADH..PATCH 1 PATCH TRANSDERMA (21:40)
[2020-05-24] MEDS: Ketorolac Tromethamine 15 MG/ML VIAL IM (21:40)
[2020-05-24] MEDS: Cyclobenzaprine HCl 5 MG TABLET PO (21:40)
[2020-05-24] MEDS: Acetaminophen 325 MG TABLET 975 MG PO (21:40)
[2020-05-24 21:46] VITALS: BP 137/86; PULSE 64; RESP 17; TEMP 36.7; O2SAT 99
--- NOTE | 2020-05-24 21:47 | PC.NURSE ---
patient a&ox3, talking on cell phone, vitals stable, pt medicated per order, will continue to monitor.
== END 2020-05-24 22:55 | disposition home or self-care (01) ==
PROVIDERS: Emergency Provider Student in an Organized Health Care Education/Training Program; PCP Family Medicine
DX: M54.12 Radiculopathy, cervical region (principal); M62.838 Other muscle spasm; R51.9 Headache, unspecified; R00.2 Palpitations; Z79.899 Other long term (current) drug therapy; Z87.891 Personal history of nicotine dependence
CPT/HCPCS: 96372; 99284; J1885

== ENCOUNTER 2020-06-25 20:15 | Emergency (ER) | payer MEDICAID, SELFPAY ==
--- NOTE | ~2020-06-25 | XR_ITS ---
EXAMINATION: RIGHT HAND/WRIST CLINICAL INFORMATION: Pain and swelling COMPARISON: None TECHNIQUE: 4 views. FINDINGS: There is no visible acute fracture, dislocation or subluxation. The soft tissues are normal. XR/XR hand wrist RT IMPRESSION: Unremarkable right hand/wrist exam.
[2020-06-25 20:43] VITALS: BP 149/75; PULSE 92; RESP 18; TEMP 36.7; O2SAT 100; BMI 29.9
--- NOTE | 2020-06-25 23:40 | ED_ITS ---
HPI - Extremity Problem General Chief complaint: Extremity Injury, Upper Stated complaint: HAND PAIN Time Seen by Provider: 06/25/20 23:33 Source: patient Mode of arrival: ambulatory History of Present Illness HPI Narrative: 35-year-old female a past medical history of asthma, fibromyalgia, hypertension, IBS, migraines, presenting to the ED complaining of acute on chronic right hand pain radiating up the arm x years s/p previous fracture. Denies new/recent trauma/falls or injury, numbness, weakness, fever, chills. Reports taking Tylenol, Motrin, and Flexeril at home without relief. States has follow-up with Orthopedics in a few weeks. MD Complaint: extremity pain Related Data Home Medications Medication Instructions Recorded Confirmed albuterol sulfate 90 mcg/actuation 1 inh INHALATION QID 01/15/20 01/15/20 aerosol inhaler amitriptyline 10 mg tablet 10 mg PO DAILY 01/15/20 01/15/20 omnaipd-nnnvvisheruuw-utyimctj 250 1 tab PO Q4-6H PRN 01/15/20 01/15/20 mg-250 mg-65 mg tablet cholecalciferol (vitamin D3) 25 25 mcg PO DAILY 01/15/20 01/15/20 mcg (1,000 unit) tablet cyclobenzaprine 10 mg tablet 10 mg PO BEDTIME 01/15/20 01/15/20 famotidine 20 mg tablet 20 mg PO BID 01/15/20 01/15/20 fluticasone propionate 50 1 spray INTRANASAL DAILY 01/15/20 01/15/20 mcg/actuation nasal spray,suspension ketoconazole 2 % topical cream 1 applic TOPICAL DAILY 01/15/20 01/15/20 loratadine 10 mg tablet 10 mg PO DAILY 01/15/20 01/15/20 montelukast 10 mg tablet 10 mg PO BEDTIME 01/15/20 01/15/20 ondansetron HCl 4 mg tablet 4 mg PO Q8H 01/15/20 01/15/20 sumatriptan succinate 50 mg tablet 50 mg PO Q2-4H PRN 01/15/20 01/15/20 trazodone 50 mg tablet 25 mg PO DAILY 01/15/20 01/15/20 Previous Rx's Medication Instructions Recorded dicyclomine 20 mg tablet 20 mg PO QID 30 Days #120 tab 05/13/20 cyclobenzaprine 10 mg PO BEDTIME PRN #3 tab 05/24/20 Allergies Allergy/AdvReac Type Severity Reaction Status Date / Time No Known Allergies Allergy Verified 05/13/20 16:03 [No Known Allergies*] Review of Systems Review of Systems: Constitutional: No Fever, No Chills Musculoskeletal: + joint pain, No Myalgias, No Joint Swelling Skin: No Skin Lesions, No rash Neuro: No Weakness, No Numbness, + Paresthesias Yes all other systems are reviewed and are negative ON LICENSE OF [facility] Past Medical History Medical History Asthma Fibromyalgia Hypertension IBS (irritable bowel syndrome) Migraines Surgical History Hx of tubal ligation Family History Family History Mother Diabetes HTN (hypertension) Asthma Brother Asthma Social History Social History Household Members: Children Alcohol intake: never Smoking Status: Former smoker Smoked in Last 30 Days: No Use of substances other than those prescribed or required for medical reasons: No Any prior treatment program specific to substance use: No Advance Directives: No Advance Directives Information Provided: Yes Current occupational status: employed Current occupation: [employer] Sexual orientation: Straight/Heterosexual Gender identity: female Physical Exam Vital Signs: Vital Signs: Last Vital Signs Temp 98.1 F 06/25/20 20:43 Pulse 92 06/25/20 20:43 Resp 18 06/25/20 20:43 BP 149/75 H 06/25/20 20:43 Pulse Ox 100 06/25/20 20:43 Body Mass Index 29.9 Const: General: cooperative, healthy appearing, comfortable and no acute distress Orientation/consciousness: patient oriented x3 Limitations: no limitations HENMT: Head: Yes normal to inspection Ears: hearing grossly normal bilaterally General nose exam: Normal external nose present Face and sinus: Yes normal facial exam Eyes: General: appearance normal, both eyes and all related structures EOM: EOMs intact bilaterally Neck: Neck: Yes normal visual inspection and Yes no meningeal signs Resp: Effort & Inspection: normal respiratory effort Cardio: Rate: regular rate Peripheral pulses: radial pulses present Skin: Rashes: no rashes Wounds: no wounds Neuro: General: patient oriented x3, tone normal, moves all extremities and no meningeal signs Gait exam (Neuro): Normal gait present Extrem: Other: Right hand without notable deformity. No erythema, fluctuance, or induration. Tender to palpation diffusely. No snuffbox tenderness. Full range of motion intact. Neurovascularly intact. General: Yes normal to inspection Course Course Course Narrative: XR hand wrist RT IMPRESSION: Unremarkable right hand/wrist exam > patient requesting stronger pain medication, discussed there is no indication for narcotics at this time, will give 1 time dose in the ED MDM - Extremity (Nontraumatic) MDM Narrative Medical decision making narrative: On exam VSS, NAD/well-appearing, no apprecaible deformity, hand tender to palpation. NV intact. Likely acute on chronic pain. Will rule out subacute fracture Plan: X-rays Discharge Plan Discharge Clinical Impression: Arthralgia Qualifiers: Joint pain location: hand Laterality: right Qualified Code(s): M25.541 - Pain in joints of right hand Patient Disposition: Home, Self-Care Instructions: Arthralgia (ED) Additional Instructions: Continue taking Tylenol and Motrin at home for pain/swelling Follow-up with Orthopedics Your given strong pain medication today in the emergency department Ice and elevate your hand Prescriptions: No Action cyclobenzaprine 10 mg tablet 10 mg PO BEDTIME PRN (Reason: muscle spasm) Qty: 3 RF: 0 famotidine [Acid Cut Lace Machine Operator (famotidine)] 20 mg tablet 20 mg PO BID RF: 0 albuterol sulfate [Proventil HFA] 90 mcg/actuation HFA aerosol inhaler 1 inh inhalation QID RF: 0 fluticasone propionate [Flonase Allergy Relief] 50 mcg/actuation spray,suspension 1 spray intranasal DAILY RF: 0 montelukast [Singulair] 10 mg tablet 10 mg PO BEDTIME RF: 0 amitriptyline 10 mg tablet 10 mg PO DAILY RF: 0 loratadine [Allergy Relief (loratadine)] 10 mg tablet 10 mg PO DAILY RF: 0 trazodone 50 mg tablet 25 mg PO DAILY RF: 0 ketoconazole 2 % cream 1 applic topical DAILY RF: 0 cyclobenzaprine 10 mg tablet 10 mg PO BEDTIME RF: 0 cholecalciferol (vitamin D3) 25 mcg (1,000 unit) tablet 25 mcg PO DAILY RF: 0 Excedrin Migraine 250-250-65 mg tablet 1 tab PO Q4-6H PRNRF: 0 ondansetron HCl [Zofran] 4 mg tablet 4 mg PO Q8H RF: 0 sumatriptan succinate 50 mg tablet 50 mg PO Q2-4H PRNRF: 0 dicyclomine 20 mg tablet 20 mg PO QID 30 Days Qty: 120 RF: 3 Referrals: Mickie Rust MD [Physician] - 1 week Lu Estrada MD [Primary Care Provider] - 2 days
[2020-06-25] MEDS: oxyCODONE HCl Immed Release 5 MG TABLET PO (23:56)
== END 2020-06-26 00:02 | disposition home or self-care (01) ==
PROVIDERS: Emergency Provider Internal Medicine; PCP Family Medicine
DX: M25.541 Pain in joints of right hand (principal); I10 Essential (primary) hypertension; J45.909 Unspecified asthma, uncomplicated
CPT/HCPCS: 73110; 73130; 99283; 99284

== ENCOUNTER → 2020-06-29 13:06 | Outpatient (BNVA) | payer MEDICAID, SELFPAY | PROVIDERS: PCP Family Medicine; Visit Provider Orthopaedic Surgery | DX: M25.531 Pain in right wrist (principal); M25.831 Other specified joint disorders, right wrist | CPT/HCPCS: 99202 ==

== ENCOUNTER 2020-07-01 15:52 | Outpatient (REF) | payer MEDICAID, SELFPAY ==
--- NOTE | ~2020-07-01 | US_ITS ---
EXAMINATION: PELVIC ULTRASOUND CLINICAL INFORMATION: Pain COMPARISON: Previous exam most recent April 2020 TECHNIQUE: Transabdominal and transvaginal pelvic ultrasound was performed. Transvaginal exam was performed for better visualization of the uterus and ovaries. FINDINGS: The uterus is anteverted and measures 7.6 x 3.6 x 5.2 cm in dimension. No focal uterine lesion is seen. Endometrial thickness is normal measuring 0.2 cm. There is a small amount of fluid seen in the endometrial canal. The cervix is normal appearing. The right ovary measures 3.3 x 2.4 x 1.9 cm. There is a 1.6 x 1.8 x 1.6 cm simple right ovarian cyst. There is a 2 x 2.2 x 1.7 cm simple paraovarian or adnexal cyst. The left ovary is normal-appearing and measures 2 x 1.1 x 1.8 cm. There is no fluid in the pelvis. US/US pelvic complete IMPRESSION: 2 small right ovarian simple cysts. Otherwise unremarkable exam.
--- NOTE | ~2020-07-01 | US_ITS ---
EXAMINATION: PELVIC ULTRASOUND CLINICAL INFORMATION: Pain COMPARISON: Previous exam most recent April 2020 TECHNIQUE: Transabdominal and transvaginal pelvic ultrasound was performed. Transvaginal exam was performed for better visualization of the uterus and ovaries. FINDINGS: The uterus is anteverted and measures 7.6 x 3.6 x 5.2 cm in dimension. No focal uterine lesion is seen. Endometrial thickness is normal measuring 0.2 cm. There is a small amount of fluid seen in the endometrial canal. The cervix is normal appearing. The right ovary measures 3.3 x 2.4 x 1.9 cm. There is a 1.6 x 1.8 x 1.6 cm simple right ovarian cyst. There is a 2 x 2.2 x 1.7 cm simple paraovarian or adnexal cyst. The left ovary is normal-appearing and measures 2 x 1.1 x 1.8 cm. There is no fluid in the pelvis. US/US transvaginal IMPRESSION: 2 small right ovarian simple cysts. Otherwise unremarkable exam.
== END 2020-07-01 15:53 | disposition home or self-care (01) ==
LOC: HO.US 15:52
PROVIDERS: Visit Provider Advanced Practice Midwife
DX: R10.2 Pelvic and perineal pain (principal); N83.201 Unspecified ovarian cyst, right side
CPT/HCPCS: 76830; 76856

== ENCOUNTER → 2020-07-02 10:40 | Outpatient (BNVA) | payer MEDICAID, SELFPAY | PROVIDERS: PCP Family Medicine; Visit Provider Advanced Practice Midwife | DX: Z30.42 Encounter for surveillance of injectable contraceptive (principal) | CPT/HCPCS: 96372; 99211; J1050 ==

== ENCOUNTER 2020-07-09 13:07 | Outpatient (REF) | payer MEDICAID, SELFPAY ==
[2020-07-10 09:04] LABS: CT PCR NOT DETECTED (Not Detect.); NG PCR NOT DETECTED (Not Detect.)
[2020-07-10 11:00] LABS: BV Int Neg Control Negative (Negative); BV Int Pos Control Positive (Positive)
== END 2020-07-09 13:08 | disposition home or self-care (01) ==
LOC: HO.LAB 13:07
PROVIDERS: PCP Family Medicine; Visit Provider Advanced Practice Midwife
DX: Z11.3 Encounter for screening for infections with a predominantly sexual mode of transmission (principal); Z71.2 Person consulting for explanation of examination or test findings; N83.209 Unspecified ovarian cyst, unspecified side
CPT/HCPCS: 81003; 81025; 87480; 87491; 87510; 87591; 87660; 99212

== ENCOUNTER → 2020-07-20 13:01 | Outpatient (BNVA) | payer MEDICAID, SELFPAY | PROVIDERS: PCP Family Medicine; Visit Provider Orthopaedic Surgery | DX: M67.431 Ganglion, right wrist (principal); R20.0 Anesthesia of skin; R20.2 Paresthesia of skin | CPT/HCPCS: 20612; 99212 ==

== ENCOUNTER 2020-09-02 09:36 | Outpatient (REF) | payer MEDICAID, SELFPAY ==
--- NOTE | 2020-09-02 09:39 | EMG_ITS ---
This is a 35-year-old woman with 6-month history of right upper and right lower extremity paresthesia, numbness, and tingling. Her neurological examination is normal. IMPRESSION: Rule out nerve entrapment. Rule out demyelinating disease. Nerve conduction EMG study: Normal electrodiagnostic study of the right upper and right lower extremity with no evidence of carpal tunnel syndrome, nerve entrapment, or general peripheral neuropathy. Normal EMG of the right C5-T1 innervated muscles and the right L4-S1 innervated muscles. MD BAMBI Ward/MAGAN / [phone]
== END 2020-09-02 09:37 | disposition home or self-care (01) ==
LOC: HO.NEURO 09:36
PROVIDERS: Visit Provider Orthopaedic Surgery
DX: R20.0 Anesthesia of skin (principal); R20.2 Paresthesia of skin
CPT/HCPCS: 95885; 95913

== ENCOUNTER 2021-01-28 21:27 | Emergency (ER) | payer MEDICAID, SELFPAY ==
[2021-01-28 21:55] VITALS: BP 125/77; PULSE 69; RESP 18; TEMP 36.8; O2SAT 99; BMI 35.8
[2021-01-28 22:14] LABS: IDNOW Serial# 9DD0AD1C; Strep A Nucleic Acid Negative (Negative)
[2021-01-28 22:23] LABS: COVID-19 Test Negative (Negative)
--- NOTE | 2021-01-28 22:27 | ED_ITS ---
HPI - General Adult General Chief complaint: General Medical Stated complaint: ?lump on neck Time Seen by Provider: 01/28/21 22:05 Source: patient Mode of arrival: ambulatory History of Present Illness HPI narrative: 35-year-old female with a past medical history of asthma, fibromyalgia, IBS HTN, migraines, presenting to the ED complaining of left-sided neck pain with a lump, and left ear pain. Reports pain worsened with head/neck movements. Reports dry cough, rhinorrhea, and migraine/headache. Denies fever, chills drainage from ear, hearing loss, sore throat, difficulty stood inability to swallow, SOB Onset (ago): day(s) Related Data Home Medications Medication Instructions Recorded Confirmed albuterol sulfate 90 mcg/actuation 1 inh INHALATION QID 01/15/20 01/15/20 aerosol inhaler (Proventil HFA) amitriptyline 10 mg tablet 10 mg PO DAILY 01/15/20 01/15/20 cdbeukn-ujnxjnjhatekk-yqpnuntm 250 1 tab PO Q4-6H PRN 01/15/20 01/15/20 mg-250 mg-65 mg tablet (Excedrin Migraine) cholecalciferol (vitamin D3) 25 25 mcg PO DAILY 01/15/20 01/15/20 mcg (1,000 unit) tablet cyclobenzaprine 10 mg tablet 10 mg PO BEDTIME 01/15/20 01/15/20 famotidine 20 mg tablet (Acid 20 mg PO BID 01/15/20 01/15/20 Sheriff Detective (famotidine)) fluticasone propionate 50 1 spray INTRANASAL DAILY 01/15/20 01/15/20 mcg/actuation nasal spray,suspension (Flonase Allergy Relief) ketoconazole 2 % topical cream 1 applic TOPICAL DAILY 01/15/20 01/15/20 loratadine 10 mg tablet (Allergy 10 mg PO DAILY 01/15/20 01/15/20 Relief (loratadine)) montelukast 10 mg tablet 10 mg PO BEDTIME 01/15/20 01/15/20 (Singulair) ondansetron HCl 4 mg tablet 4 mg PO Q8H 01/15/20 01/15/20 (Zofran) sumatriptan succinate 50 mg tablet 50 mg PO Q2-4H PRN 01/15/20 01/15/20 trazodone 50 mg tablet 25 mg PO DAILY 01/15/20 01/15/20 Previous Rx's Medication Instructions Recorded dicyclomine 20 mg tablet 20 mg PO QID 30 Days #120 tab 05/13/20 cyclobenzaprine 10 mg tablet 10 mg PO BEDTIME PRN #3 tab 05/24/20 metronidazole 500 mg tablet 500 mg PO BID 7 Days #14 tab 07/21/20 (Flagyl) amoxicillin 875 mg-potassium 1 tab PO Q12H 7 Days #14 tab 01/28/21 clavulanate 125 mg tablet (Augmentin) fluticasone propionate 50 2 spray INTRANASAL DAILY #16 g 01/28/21 mcg/actuation nasal spray,suspension (Flonase Allergy Relief) ibuprofen 400 mg tablet 400 mg PO Q6H 7 Days #28 tab 01/28/21 Allergies Allergy/AdvReac Type Severity Reaction Status Date / Time No Known Allergies Allergy Verified 01/28/21 22:19 [No Known Allergies*] Review of Systems Review of Systems: Constitutional: No Fever, No Chills, No Fatigue, No Malaise ENT/Mouth: No Hearing loss, + Ear Pain, No Nasal Congestion, No Sinus Pain, No Hoarseness, No sore throat, No Rhinorrhea, No Swallowing Difficulty Eyes: No Eye Pain, No Swelling, No Redness Cardiovascular: No Chest Pain, No SOB Respiratory: + Cough, No Dyspnea Gastrointestinal: No Nausea, No Vomiting, No Diarrhea, No Constipation, No Abdominal pain Genitourinary: No irregular bleeding, No Dysuria, No Urinary Frequency, No Hematuria, Musculoskeletal: + joint pain, No Myalgias, No Joint Swelling Skin: No Skin Lesions, No rash Neuro: No Weakness, No Loss of Consciousness, + Headache Yes all other systems are reviewed and are negative [facility] Past Medical History Attestation statement: The following information was validated with the patient. 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 Sexual orientation: Straight/Heterosexual Gender identity: Female Physical Exam Vital Signs: Vital Signs: Last Vital Signs Temp 98.3 F 01/28/21 21:55 Pulse 69 01/28/21 21:55 Resp 18 01/28/21 21:55 BP 125/77 01/28/21 21:55 Pulse Ox 99 01/28/21 21:55 Body Mass Index 35.8 Const: General: cooperative, healthy appearing and no acute distress Orientation/consciousness: patient oriented x3 Limitations: no limitations HENMT: Other: + congestion Head: Yes normal to inspection and Yes atraumatic Ears: hearing grossly normal bilaterally, external ears normal, TM's normal bilaterally and mastoids normal General nose exam: Normal external nose present Face and sinus: Yes normal facial exam and Yes sinuses nontender Mouth: Normal oral and palatal mucosa present Throat: Yes posterior oropharynx normal, Yes tonsils normal, Yes uvula midline, No peritonsillar mass, No uvula laterally displaced and No uvular edema Eyes: General: appearance normal, both eyes and all related structures EOM: EOMs intact bilaterally Neck: Neck: Yes normal visual inspection, Yes no meningeal signs, Yes trachea midline, Yes supple, No anterior neck swelling and Yes lymphadenopathy (Left- sided submandibular/anterior cervical lymphadenopathy) Thyroid: Thyroid normal Resp: Effort & Inspection: normal respiratory effort, not labored, no respiratory distress, no stridor and not tachypneic Cardio: Rate: regular rate Heart sounds: S1 normal heart sound present and S2 normal heart sound present GI: Inspection: Yes normal to inspection Skin: Rashes: no rashes Wounds: no wounds Neuro: General: patient oriented x3 and no meningeal signs Gait exam (Neuro): Normal gait present Extrem: General: Yes normal to inspection Medical Decision Making MDM Narrative Medical decision making narrative: 35-year-old female with a past medical history of asthma, fibromyalgia, IBS HTN, migraines, presenting to the ED complaining of left-sided neck pain with a lump, and left ear pain. Reports pain worsened with head/neck movements. On exam vital signs stable, NAD/well- appearing, unilateral lymphadenopathy noted, TMs WNL, oropharynx WNL. Plan to DC with Augmentin and PCP follow-up Lab Data Labs: Lab Results 01/28/21 01/28/21 Range/Units 22:01 22:01 COVID-19 (ARAMIS) Negative (Negative) COVID-19 Clin Com See Note S. pyogenes GrpA LETITIA Negative (Negative) Discharge Plan Discharge Clinical Impression: Lymphadenopathy Patient Disposition: Home, Self-Care Instructions: Lymphadenopathy (ED) Additional Instructions: Augmentin is an antibiotic, please take as prescribed In addition Flonase as a nasal decongestant spray, and ibuprofen will help with inflammation new line please follow-up with If symptoms persist or worsen the pain becomes unbearable, have ear pain, fever, oral swelling, or difficulty swallowing/breathing return to the ED immediately Prescriptions: New ibuprofen 400 mg tablet 400 mg PO Q6H 7 Days Qty: 28 RF: 0 fluticasone propionate [Flonase Allergy Relief] 50 mcg/actuation spray,suspension 2 spray intranasal DAILY Qty: 16 RF: 0 amoxicillin-pot clavulanate [Augmentin] 875-125 mg tablet 1 tab PO Q12H 7 Days Qty: 14 RF: 0 No Action metronidazole [Flagyl] 500 mg tablet 500 mg PO BID 7 Days Qty: 14 RF: 0 cyclobenzaprine 10 mg tablet 10 mg PO BEDTIME PRN (Reason: muscle spasm) Qty: 3 RF: 0 famotidine [Acid Sheriff Detective (famotidine)] 20 mg tablet 20 mg PO BID RF: 0 albuterol sulfate [Proventil HFA] 90 mcg/actuation HFA aerosol inhaler 1 inh inhalation QID RF: 0 fluticasone propionate [Flonase Allergy Relief] 50 mcg/actuation spray,suspension 1 spray intranasal DAILY RF: 0 montelukast [Singulair] 10 mg tablet 10 mg PO BEDTIME RF: 0 amitriptyline 10 mg tablet 10 mg PO DAILY RF: 0 loratadine [Allergy Relief (loratadine)] 10 mg tablet 10 mg PO DAILY RF: 0 trazodone 50 mg tablet 25 mg PO DAILY RF: 0 ketoconazole 2 % cream 1 applic topical DAILY RF: 0 cyclobenzaprine 10 mg tablet 10 mg PO BEDTIME RF: 0 cholecalciferol (vitamin D3) 25 mcg (1,000 unit) tablet 25 mcg PO DAILY RF: 0 Excedrin Migraine 250-250-65 mg tablet 1 tab PO Q4-6H PRNRF: 0 ondansetron HCl [Zofran] 4 mg tablet 4 mg PO Q8H RF: 0 sumatriptan succinate 50 mg tablet 50 mg PO Q2-4H PRNRF: 0 dicyclomine 20 mg tablet 20 mg PO QID 30 Days Qty: 120 RF: 3 Referrals: Lu Estrada MD [Primary Care Provider] - 2 days
== END 2021-01-29 00:31 | disposition home or self-care (01) ==
PROVIDERS: Emergency Provider Internal Medicine; PCP Family Medicine
DX: R59.1 Generalized enlarged lymph nodes (principal); I10 Essential (primary) hypertension; J45.909 Unspecified asthma, uncomplicated; Z20.822 Contact with and (suspected) exposure to COVID-19
CPT/HCPCS: 36415; 87635; 87651; 99283; 99284

== ENCOUNTER → 2021-06-10 11:45 | Outpatient (BNVA) | payer MEDICAID, SELFPAY | PROVIDERS: PCP Family Medicine; Referring Provider Family Medicine; Visit Provider Nurse Practitioner | DX: R10.32 Left lower quadrant pain (principal); R14.0 Abdominal distension (gaseous); K21.9 Gastro-esophageal reflux disease without esophagitis; N92.1 Excessive and frequent menstruation with irregular cycle; N83.209 Unspecified ovarian cyst, unspecified side; I10 Essential (primary) hypertension; M79.7 Fibromyalgia | CPT/HCPCS: 99212 ==

== ENCOUNTER → 2021-07-13 11:12 | Outpatient (BNVA) | payer MEDICAID, SELFPAY | PROVIDERS: Visit Provider Advanced Practice Midwife | DX: Z13.89 Encounter for screening for other disorder (principal) ==

== ENCOUNTER → 2021-07-20 10:05 | Outpatient (BNVA) | payer MEDICAID, SELFPAY | PROVIDERS: Visit Provider Advanced Practice Midwife | DX: Z30.42 Encounter for surveillance of injectable contraceptive (principal) | CPT/HCPCS: 96372; 99211 ==

== ENCOUNTER 2021-08-08 20:17 | Emergency (ER) | payer MEDICAID, SELFPAY ==
--- NOTE | 2021-08-08 | ECG_ITS ---
Test Reason : high blood pressure Blood Pressure : / mmHG Vent. Rate : 078 BPM Atrial Rate : 078 BPM P-R Int : 130 ms QRS Dur : 098 ms QT Int : 376 ms P-R-T Axes : 066 058 058 degrees QTc Int : 428 ms Normal sinus rhythm Possible Left atrial enlargement Borderline ECG When compared with ECG of 22-MAY-2020 19:21, No significant change was found Referred By: Generic ED Physician Electronically Signed By:DONATO BABB
[2021-08-08 20:23] VITALS: BP 169/105; PULSE 82; RESP 18; TEMP 36.7; O2SAT 100; BMI 31.8
[2021-08-08 21:10] LABS: MANUAL DIFF FLAG NO
[2021-08-08 21:21] LABS: Basophils Percent Auto 0.3 % (0-2); Eosinophils Absolute Auto 0.1 X10*3/uL (0.0-0.4); Eosinophils Percent Auto 1.4 % (0-4); Hematocrit 40.6 % (37.0-47.0); Hemoglobin 13.5 g/dl (12.0-16.0); Imm Gran Abs Auto 0.02 X10*3/uL (0.00-0.03); Imm Gran Pct Auto 0.3 % (0.0-0.4); Lymphocytes Absolute Auto 2.7 X10*3/uL (1.2-4.9); Lymphocytes Percent Auto 42.8 % (20-40); Mean Corpuscular HGB Conc 33.3 g/dl (31.0-35.0); Mean Corpuscular Hemoglobin 28.1 pg (27.0-33.0); Mean Corpuscular Volume 84.4 fL (80.0-98.0); Mean Platelet Volume 10.4 fL (9.4-12.3); Monocytes Absolute Auto 0.5 X10*3/uL (0.1-1.2); Monocytes Percent Auto 7.4 % (2-11); Neutrophils Percent Auto 47.8 % (45-73); Platelet Count 254 X10*3/uL (160-400); Red Blood Count 4.81 X10*6/uL (4.20-5.50); Red Cell Distribution Width 13.6 % (11.0-16.0); White Blood Count 6.3 X10*3/uL (4.8-10.8)
[2021-08-08 21:27] LABS: Alanine Aminotransferase 12 U/L (0-31); Albumin Level 4.4 g/dL (3.5-5.0); Alkaline Phosphatase 57 U/L (39-117); Anion Gap 10 (12-20); Aspartate Amino Transferase 14 U/L (5-31); Bilirubin Total 0.5 mg/dL (0.0-1.0); Blood Urea Nitrogen 12 mg/dL (9-16); Calcium 9.8 mg/dL (8.4-10.2); Carbon Dioxide 21 mmol/L (22-29); Chloride 109 mmol/L (96-108); Estimated Glomerular Filt Rate > 60; Glucose Random 98 mg/dL (60-115); Magnesium 2.1 mg/dL (1.6-2.6); Potassium 3.4 mmol/L (3.3-5.1); Sodium 137 mmol/L (135-145); Total Protein 7.8 g/dL (6.5-8.0)
[2021-08-08 21:29] LABS: IDNOW Serial# 9DB6401D; Influenza A Negative (Negative); Influenza B2 Negative (Negative)
[2021-08-08 21:30] LABS: COVID-19 Test Negative (Negative)
[2021-08-09 01:37] VITALS: BP 155/106; PULSE 67; RESP 16; TEMP 36.7; O2SAT 99
--- NOTE | 2021-08-09 01:48 | ED.HA ---
HPI - Headache General Chief Complaint: Headache Stated Complaint: High Blood Pressure/Headache Time Seen by Provider: 08/09/21 00:50 Source: patient Mode of arrival: ambulatory History of Present Illness HPI Narrative: 36 year female with history of migraines and hypertension presents with headache since Monday morning that she thought was related with her blood pressure, she took blood pressure medication but states that it still persisted primarily located on the left and associated with nausea but denies any fever, chills, GI or symptoms and denies any sore throat or cough. She denies any alcohol or illicit drug use and denies any marijuana use. Patient states that she took her migraine medication but cannot recall in name and also cannot recall the name of the blood pressure medication. Related Data Home Medications Medication Instructions Recorded Confirmed albuterol sulfate 90 mcg/actuation 1 inh INHALATION QID 01/15/20 01/15/20 aerosol inhaler (Proventil HFA) amitriptyline 10 mg tablet 10 mg PO DAILY 01/15/20 01/15/20 qwlragv-uyziqnvliotou-qpeowncn 250 1 tab PO Q4-6H PRN 01/15/20 01/15/20 mg-250 mg-65 mg tablet (Excedrin Migraine) cholecalciferol (vitamin D3) 25 25 mcg PO DAILY 01/15/20 01/15/20 mcg (1,000 unit) tablet ketoconazole 2 % topical cream 1 applic TOPICAL DAILY 01/15/20 01/15/20 loratadine 10 mg tablet (Allergy 10 mg PO DAILY 01/15/20 01/15/20 Relief (loratadine)) montelukast 10 mg tablet 10 mg PO BEDTIME 01/15/20 01/15/20 (Singulair) ondansetron HCl 4 mg tablet 4 mg PO Q8H 01/15/20 01/15/20 (Zofran) sumatriptan succinate 50 mg tablet 50 mg PO Q2-4H PRN 01/15/20 01/15/20 trazodone 50 mg tablet 25 mg PO DAILY 01/15/20 01/15/20 Previous Rx's Medication Instructions Recorded cyclobenzaprine 10 mg tablet 10 mg PO BEDTIME PRN #3 tab 05/24/20 fluticasone propionate 50 2 spray INTRANASAL DAILY #16 g 01/28/21 mcg/actuation nasal spray,suspension (Flonase Allergy Relief) ibuprofen 400 mg tablet 400 mg PO Q6H 7 Days #28 tab 01/28/21 dicyclomine 20 mg tablet 20 mg PO QID 30 Days #120 tab 06/23/21 famotidine 20 mg tablet (Acid 20 mg PO BID #60 tab 06/23/21 Roll Forming Machine Set Up Operator (famotidine)) hydrocortisone 2.5 % topical cream 1 appl HI BID #30 g 06/23/21 with perineal applicator (Proctosol HC) medroxyprogesterone 150 mg/mL 150 mg IM Q12W #1 ml 07/13/21 intramuscular suspension (Depo-Provera) ohpyzbasig-phcofnlfrusry-hyejmsmk 1 cap PO Q8H PRN #3 cap 08/09/21 50 mg-300 mg-40 mg capsule (Fioricet) Allergies Allergy/AdvReac Type Severity Reaction Status Date / Time No Known Allergies Allergy Verified 07/13/21 11:13 [No Known Allergies*] Review of Systems Review of Systems: Pertinent positives and negatives as stated in HPI 10 point review of systems is otherwise negative. 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 GENERAL: Well developed, well nourished, in no acute distress. HEAD: Normocephalic/atraumatic EYES: PERRLA, EOMI EARS: Ext canals without abnormality, TMs non-bulging and non-erythematous NOSE: Nares patent bilateral OROPHARYNX: no oral lesions noted, posterior pharynx clear and non-erythematous without noted tonsillar enlargement/erythema/exudates NECK: Supple, no adenopathy LUNGS: Normal breath sounds. No adventitious sounds or accessory muscle use. SpO2<99> CARDIOVASCULAR: Regular rate and rhythm without noted murmurs ABDOMEN: Soft, non-tender, non-distended with bowel sounds. MUSCULOSKELETAL: No tenderness, deformities, or effusions noted on gross inspection. EXTREMITIES: No cyanosis, clubbing or edema. SKIN: Inspection of the skin reveals no rashes NEUROLOGIC: Alert and oriented x 4. Strength and sensation to light touch were grossly intact x 4, no pronator drift, no facial asymmetry, cranial nerves 2-12 are grossly intact. Course Course Course Narrative: 36-year-old female with history and clinical presentation consistent with her migraines, blood pressure is noted be elevated in on review of all investigations there are no acute findings to better explain patient's symptom allergy. She will receive combination medications for her migraine and be reassessed. In addition, she received additional blood pressure medication. Patient feeling much better and will be discharged home. MDM - Headache Lab Data Result diagrams: 08/08/21 21:05 08/08/21 21:05 Labs: Lab Results 08/08/21 08/08/21 08/08/21 Range/Units 21:05 21:05 21:05 WBC 6.3 (4.8-10.8) X10*3/uL RBC 4.81 (4.20-5.50) X10*6/uL Hgb 13.5 (12.0-16.0) g/dl Hct 40.6 (37.0-47.0) % MCV 84.4 (80.0-98.0) fL MCH 28.1 (27.0-33.0) pg MCHC 33.3 (31.0-35.0) g/dl RDW 13.6 (11.0-16.0) % Plt Count 254 (160-400) X10*3/uL MPV 10.4 (9.4-12.3) fL Immature Gran % (Auto) 0.3 (0.0-0.4) % Neut % (Auto) 47.8 (45-73) % Lymph % (Auto) 42.8 H (20-40) % [place] % (Auto) 7.4 (2-11) % Eos % (Auto) 1.4 (0-4) % Baso % (Auto) 0.3 (0-2) % Lymph # (Auto) 2.7 (1.2-4.9) X10*3/uL [place] # (Auto) 0.5 (0.1-1.2) X10*3/uL Eos # (Auto) 0.1 (0.0-0.4) X10*3/uL Baso # (Auto) 0.0 (0.0-0.2) X10*3/uL Abs Immat Gran (auto) 0.02 (0.00-0.03) X10*3/uL Absolute Neuts (auto) 3.0 (2.0-8.3) x10*3/uL Absolute Nucleated RBC 0.000 (0.0-0.012) X10*3/uL Nucleated RBC % (auto) 0.0 (0.0-0.2) /100WBC Sodium 137 (135-145) mmol/L Potassium 3.4 (3.3-5.1) mmol/L Chloride 109 H (96-108) mmol/L Carbon Dioxide 21 L (22-29) mmol/L Anion Gap 10 L (12-20) BUN 12 (9-16) mg/dL Creatinine 0.97 (0.5-1.4) mg/dL Estim Creat Clear Calc 92.0 Estimated GFR > 60 Random Glucose 98 (60-115) mg/dL Calcium 9.8 D (8.4-10.2) mg/dL Magnesium 2.1 (1.6-2.6) mg/dL Total Bilirubin 0.5 (0.0-1.0) mg/dL AST 14 (5-31) U/L ALT 12 (0-31) U/L Alkaline Phosphatase 57 D (39-117) U/L Total Protein 7.8 (6.5-8.0) g/dL Albumin 4.4 (3.5-5.0) g/dL Urine Color Urine Appearance Urine pH (5.0-8.0) Ur Specific [place] (1.005-1.025) Urine Protein (NEG-TRACE) MG/DL Urine Glucose (UA) (NEG) MG/DL Urine Ketones (NEG) MG/DL Urine Blood (NEG) Urine Nitrite (NEG) Ur Leukocyte Esterase (NEG) Urine Test (NEGATIVE) COVID-19 (ARAMIS) (Negative) COVID-19 Clin Com Influenza Type A (LETITIA) Negative (Negative) Influenza Type B (LETITIA) Negative (Negative) Influenza A & B Note See Note 08/08/21 08/09/21 08/09/21 Range/Units 21:05 02:01 02:01 WBC (4.8-10.8) X10*3/uL RBC (4.20-5.50) X10*6/uL Hgb (12.0-16.0) g/dl Hct (37.0-47.0) % MCV (80.0-98.0) fL MCH (27.0-33.0) pg MCHC (31.0-35.0) g/dl RDW (11.0-16.0) % Plt Count (160-400) X10*3/uL MPV (9.4-12.3) fL Immature Gran % (Auto) (0.0-0.4) % Neut % (Auto) (45-73) % Lymph % (Auto) (20-40) % [place] % (Auto) (2-11) % Eos % (Auto) (0-4) % Baso % (Auto) (0-2) % Lymph # (Auto) (1.2-4.9) X10*3/uL [place] # (Auto) (0.1-1.2) X10*3/uL Eos # (Auto) (0.0-0.4) X10*3/uL Baso # (Auto) (0.0-0.2) X10*3/uL Abs Immat Gran (auto) (0.00-0.03) X10*3/uL Absolute Neuts (auto) (2.0-8.3) x10*3/uL Absolute Nucleated RBC (0.0-0.012) X10*3/uL Nucleated RBC % (auto) (0.0-0.2) /100WBC Sodium (135-145) mmol/L Potassium (3.3-5.1) mmol/L Chloride (96-108) mmol/L Carbon Dioxide (22-29) mmol/L Anion Gap (12-20) BUN (9-16) mg/dL Creatinine (0.5-1.4) mg/dL Estim Creat Clear Calc Estimated GFR Random Glucose (60-115) mg/dL Calcium (8.4-10.2) mg/dL Magnesium (1.6-2.6) mg/dL Total Bilirubin (0.0-1.0) mg/dL AST (5-31) U/L ALT (0-31) U/L Alkaline Phosphatase (39-117) U/L Total Protein (6.5-8.0) g/dL Albumin (3.5-5.0) g/dL Urine Color YELLOW Urine Appearance CLEAR Urine pH 6.0 (5.0-8.0) Ur Specific [place] 1.025 (1.005-1.025) Urine Protein TRACE (NEG-TRACE) MG/DL Urine Glucose (UA) NEG (NEG) MG/DL Urine Ketones 5 (NEG) MG/DL Urine Blood NEG (NEG) Urine Nitrite NEG (NEG) Ur Leukocyte Esterase NEG (NEG) Urine Test NEGATIVE (NEGATIVE) COVID-19 (ARAMIS) Negative (Negative) COVID-19 Clin Com See Note Influenza Type A (LETITIA) (Negative) Influenza Type B (LETITIA) (Negative) Influenza A & B Note Discharge Plan Discharge Clinical Impression: Migraine Patient Disposition: Home, Self-Care Instructions: Migraine Headache (ED) Additional Instructions: 1. Resume all home medications as prescribed. 2. Tylenol 1000 mg, orally, every 6 hours as needed for headache control. Do not exceed 4000 mg within 24 hours. 3. Ibuprofen 400 mg, orally with milk or food, every 6 hours as needed for headache control. 4. Please follow-up with your primary care provider to discuss your high blood pressure. Return to the ER for worsening symptoms. Prescriptions: New mwkehczsni-xukcjpctkbrfr-walv [Fioricet] 50-300-40 mg capsule 1 cap PO Q8H PRN (Reason: pain) Qty: 3 0RF No Action dicyclomine 20 mg tablet 20 mg PO QID 30 Days Qty: 120 6RF famotidine [Acid Roll Forming Machine Set Up Operator (famotidine)] 20 mg tablet 20 mg PO BID Qty: 60 6RF hydrocortisone [Proctosol HC] 2.5 % cream with perineal applicator 1 appl HI BID Qty: 30 3RF cyclobenzaprine 10 mg tablet 10 mg PO BEDTIME PRN (Reason: muscle spasm) Qty: 3 0RF ibuprofen 400 mg tablet 400 mg PO Q6H 7 Days Qty: 28 0RF fluticasone propionate [Flonase Allergy Relief] 50 mcg/actuation spray,suspension 2 spray intranasal DAILY Qty: 16 0RF Rx Instructions: administer into each nostril albuterol sulfate [Proventil HFA] 90 mcg/actuation HFA aerosol inhaler 1 inh inhalation QID 0RF montelukast [Singulair] 10 mg tablet 10 mg PO BEDTIME 0RF amitriptyline 10 mg tablet 10 mg PO DAILY 0RF loratadine [Allergy Relief (loratadine)] 10 mg tablet 10 mg PO DAILY 0RF trazodone 50 mg tablet 25 mg PO DAILY 0RF ketoconazole 2 % cream 1 applic topical DAILY 0RF cholecalciferol (vitamin D3) 25 mcg (1,000 unit) tablet 25 mcg PO DAILY 0RF Excedrin Migraine 250-250-65 mg tablet 1 tab PO Q4-6H PRN0RF ondansetron HCl [Zofran] 4 mg tablet 4 mg PO Q8H 0RF sumatriptan succinate 50 mg tablet 50 mg PO Q2-4H PRN0RF Rx Instructions: do not exceed 4 doses per 24 hrs medroxyprogesterone [Depo-Provera] 150 mg/mL suspension 150 mg IM Q12W Qty: 1 5RF Referrals: Lu Estrada MD [Primary Care Provider] - Stand Alone Forms: Work/School Release
[2021-08-09] MEDS: Ondansetron ODT 4 MG TAB.RAPDIS TRANSLINGU (01:55)
[2021-08-09] MEDS: Butalb/Acetamin/Caff 50/325/40 TABLET 1 TAB PO (01:55)
[2021-08-09] MEDS: Ketorolac Tromethamine 15 MG/ML VIAL IM (01:55)
[2021-08-09] MEDS: amLODIPine Besylate 5 MG TABLET PO (01:56)
[2021-08-09 02:10] LABS: Appearance Urine CLEAR; Color Urine YELLOW; Glucose Urine UA NEG (NEG); Leukocyte Esterase Urine NEG (NEG); Nitrite Urine NEG (NEG); Specific Gravity - Urine 1.025 (1.005-1.025); Urine Blood NEG (NEG); Urine Ketones 5 MG/DL (NEG); Urine Protein TRACE MG/DL (NEG-TRACE)
[2021-08-09 02:16] LABS: UPreg QC Valid YES; Urine Pregnancy NEGATIVE (NEGATIVE)
[2021-08-09 03:41] VITALS: BP 141/96; PULSE 64; RESP 16; O2SAT 97
== END 2021-08-09 03:50 | disposition home or self-care (01) ==
PROVIDERS: Emergency Provider Student in an Organized Health Care Education/Training Program; PCP Family Medicine
DX: G43.009 Migraine without aura, not intractable, without status migrainosus (principal); I10 Essential (primary) hypertension; J45.909 Unspecified asthma, uncomplicated; Z79.899 Other long term (current) drug therapy; Z20.822 Contact with and (suspected) exposure to COVID-19
CPT/HCPCS: 80053; 81003; 81025; 83735; 85025; 87502; 87635; 93005; 96372; 99284; J1885

== ENCOUNTER 2021-08-27 09:41 | Outpatient (REF) | payer MEDICAID, SELFPAY ==
--- NOTE | ~2021-08-27 | US_ITS ---
EXAMINATION: US SOFT TISSUE NECK CLINICAL INFORMATION: Lymphadenitis COMPARISON: None TECHNIQUE: Ultrasound of the neck soft tissues is performed with high- frequency munson-scale imaging and color Doppler. FINDINGS: THYROID BED: Prior thyroidectomy. No residual thyroid tissue demonstrated in the thyroid bed. No cystic or solid nodules demonstrated in the thyroid bed. RIGHT NECK SOFT TISSUES: Scattered architecturally normal nodes are present. The nodes show normal fatty hilus, normal cortical thickness, and no cystic change or calcification. No abnormal color flow. The largest nodes are as follows: Level 2: 2.3 x 0.8 x 1.8 cm. Normal maría elena architecture. Level 2: 1.5 x 0.4 x 1 cm. Normal maría elena architecture. LEFT NECK SOFT TISSUES: Scattered architecturally normal nodes are present. The nodes show normal fatty hilus, normal cortical thickness, and no cystic change or calcification. No abnormal color flow. The largest nodes are as follows: Level 2: 1.6 x 0.5 x 0.8 cm. Normal maría elena architecture. Level 5B: 1.1 x 0.5 x 1 cm. Normal maría elena architecture. US/US soft tiss head and/or neck IMPRESSION: 1. Bilateral cervical lymphadenopathy. Largest lymph node is a level 2 right cervical lymph node that is slightly enlarged. Otherwise cervical lymph nodes are normal in size. All cervical lymph nodes demonstrate normal ultrasound morphology and flow. Management should be determined on a clinical basis.
== END 2021-08-27 09:42 | disposition home or self-care (01) ==
LOC: HO.HMGCX 09:41
PROVIDERS: Visit Provider Internal Medicine
DX: I88.9 Nonspecific lymphadenitis, unspecified (principal)
CPT/HCPCS: 76536

== ENCOUNTER 2021-10-20 10:38 | Outpatient (REF) | payer MEDICAID, SELFPAY ==
[2021-10-20 18:08] LABS: CT PCR DETECTED (Not Detect.); NG PCR NOT DETECTED (Not Detect.)
[2021-10-21 09:34] LABS: BV Int Neg Control Negative (Negative); BV Int Pos Control Positive (Positive)
[2021-10-25 23:27] LABS: HPV mRNA E6/E7 rflx Not Detected (Not Detected)
== END 2021-10-20 10:39 | disposition home or self-care (01) ==
LOC: HO.LAB 10:38
PROVIDERS: PCP Family Medicine; Visit Provider Advanced Practice Midwife
DX: Z01.419 Encounter for gynecological examination (general) (routine) without abnormal findings (principal); N92.0 Excessive and frequent menstruation with regular cycle; Z11.4 Encounter for screening for human immunodeficiency virus [HIV]; Z11.3 Encounter for screening for infections with a predominantly sexual mode of transmission; Z11.8 Encounter for screening for other infectious and parasitic diseases; Z11.59 Encounter for screening for other viral diseases; Z11.51 Encounter for screening for human papillomavirus (HPV); Z98.51 Tubal ligation status
CPT/HCPCS: 81025; 87480; 87491; 87510; 87591; 87624; 87660; 88142; 96372

== ENCOUNTER 2021-11-18 11:59 | Emergency (ER) | payer MEDICAID, SELFPAY ==
[2021-11-18 12:42] VITALS: BP 154/101; PULSE 71; RESP 18; TEMP 37.4; O2SAT 99
[2021-11-18 13:02] VITALS: BMI 30.7
--- NOTE | 2021-11-18 13:04 | ECG_ITS ---
Test Reason : chest pressure Blood Pressure : / mmHG Vent. Rate : 081 BPM Atrial Rate : 081 BPM P-R Int : 136 ms QRS Dur : 092 ms QT Int : 372 ms P-R-T Axes : 065 063 058 degrees QTc Int : 432 ms Normal sinus rhythm Normal ECG When compared with ECG of 08-AUG-2021 20:54, No significant change was found Referred By: Generic ED Physician Electronically Signed By:ISI FLORENTINO
[2021-11-18 13:19] LABS: MANUAL DIFF FLAG NO
[2021-11-18 13:22] LABS: Basophils Percent Auto 0.5 % (0-2); Eosinophils Percent Auto 0.5 % (0-4); Hematocrit 40.4 % (37.0-47.0); Hemoglobin 13.7 g/dl (12.0-16.0); Imm Gran Abs Auto 0.01 X10*3/uL (0.00-0.03); Imm Gran Pct Auto 0.2 % (0.0-0.4); Lymphocytes Absolute Auto 1.9 X10*3/uL (1.2-4.9); Lymphocytes Percent Auto 32.4 % (20-40); Mean Corpuscular HGB Conc 33.9 g/dl (31.0-35.0); Mean Corpuscular Hemoglobin 28.6 pg (27.0-33.0); Mean Corpuscular Volume 84.3 fL (80.0-98.0); Mean Platelet Volume 9.9 fL (9.4-12.3); Monocytes Absolute Auto 0.4 X10*3/uL (0.1-1.2); Neutrophils Absolute Auto 3.6 x10*3/uL (2.0-8.3); Neutrophils Percent Auto 60.4 % (45-73); Platelet Count 282 X10*3/uL (160-400); Red Blood Count 4.79 X10*6/uL (4.20-5.50); Red Cell Distribution Width 13.3 % (11.0-16.0); White Blood Count 5.9 X10*3/uL (4.8-10.8)
[2021-11-18 13:47] LABS: Troponin-I High Sensitivity < 3.5 ng/L (<3.5-17.0)
[2021-11-18 13:52] LABS: Anion Gap 17 (12-20); Blood Urea Nitrogen 11 mg/dL (9-16); Calcium 9.6 mg/dL (8.4-10.2); Carbon Dioxide 18 mmol/L (22-29); Chloride 108 mmol/L (96-108); Creatinine Clr Calc Pharmacy 90.4; Estimated Glomerular Filt Rate > 60; Glucose Random 103 mg/dL (60-115); Potassium 3.6 mmol/L (3.3-5.1); Sodium 139 mmol/L (135-145)
[2021-11-18 18:23] VITALS: BP 149/109; PULSE 79; RESP 16; O2SAT 100
[2021-11-18 21:26] VITALS: BP 166/102; PULSE 74; RESP 20; TEMP 36.9; O2SAT 99
--- NOTE | 2021-11-18 21:44 | PC.NURSE ---
Patient came in experiencing, dizziness, diaphoresis and she took her BP at home and it was elevated. Pt BP during assessment was elevated systolic and diastolic 166/102. Pt heart monitor has normal sinus arrhythmias, skin turgor was normal, and clear lung sound.
--- NOTE | 2021-11-18 22:04 | PC.NURSE ---
DR. Griffith was reported pt BP.
--- NOTE | 2021-11-18 22:32 | ED.ARRPALP ---
HPI - Arrhythmia/Palpitations General Chief Complaint: Arrhythmia/Palpitations Stated Complaint: HBP/Dizziness Time Seen by Provider: 11/18/21 21:23 History of Present Illness HPI narrative: Patient is a 36-year-old female presents today with having high blood pressure. Has a history of high blood pressure in the past. Currently is on 2 medications. Patient claims she is on metoprolol and another medication that that is 5 mg. No fever no chills. No focal weakness. No chest pain. No shortness of breath. Took her blood pressure multiple times. Noted her blood pressure to be 140/100. Patient is from home. Related Data Home Medications Medication Instructions Recorded Confirmed albuterol sulfate 90 mcg/actuation 1 inh inhalation QID 01/15/20 10/20/21 aerosol inhaler (Proventil HFA) amitriptyline 10 mg tablet 10 mg PO DAILY 01/15/20 10/20/21 dbqdkis-tfdsscfleunnk-tleobjqn 250 1 tab PO Q4-6H PRN 01/15/20 10/20/21 mg-250 mg-65 mg tablet (Excedrin Migraine) cholecalciferol (vitamin D3) 25 25 mcg PO DAILY 01/15/20 10/20/21 mcg (1,000 unit) tablet ketoconazole 2 % topical cream 1 applic topical DAILY 01/15/20 10/20/21 loratadine 10 mg tablet (Allergy 10 mg PO DAILY 01/15/20 10/20/21 Relief (loratadine)) montelukast 10 mg tablet 10 mg PO BEDTIME 01/15/20 10/20/21 (Singulair) ondansetron HCl 4 mg tablet 4 mg PO Q8H 01/15/20 10/20/21 (Zofran) sumatriptan succinate 50 mg tablet 50 mg PO Q2-4H PRN 01/15/20 10/20/21 trazodone 50 mg tablet 25 mg PO DAILY 01/15/20 10/20/21 Previous Rx's Medication Instructions Recorded cyclobenzaprine 10 mg tablet 10 mg PO BEDTIME PRN muscle spasm 05/24/20 #3 tabs fluticasone propionate 50 2 spray intranasal DAILY #16 grams 01/28/21 mcg/actuation nasal spray,suspension (Flonase Allergy Relief) ibuprofen 400 mg tablet 400 mg PO Q6H 7 days #28 tabs 01/28/21 dicyclomine 20 mg tablet 20 mg PO QID 30 days #120 tabs 06/23/21 famotidine 20 mg tablet (Acid 20 mg PO BID #60 tabs 06/23/21 Anesthesia Attending (famotidine)) hydrocortisone 2.5 % topical cream 1 appl [place] BID hemorrhoids #30 grams 06/23/21 with perineal applicator (Proctosol HC) medroxyprogesterone 150 mg/mL 150 mg IM Q12W #1 mL 07/13/21 intramuscular suspension (Depo-Provera) xpzqebdnsm-rdfojrudvvqzc-eglxkier 1 cap PO Q8H PRN pain #3 caps 08/09/21 50 mg-300 mg-40 mg capsule (Fioricet) doxycycline hyclate 100 mg tablet 100 mg PO BID #14 tabs 10/21/21 doxycycline hyclate 100 mg capsule 100 mg PO BID 7 days #14 caps 10/25/21 metronidazole 500 mg tablet 500 mg PO Q12H #14 tabs 10/26/21 Allergies Allergy/AdvReac Type Severity Reaction Status Date / Time No Known Allergies Allergy Verified 10/26/21 14:55 [No Known Allergies*] Review of Systems Review of Systems: No leg swelling no chest pain or shortness of breath no diaphoresis Yes all other systems are reviewed and are negative PMFSH Past Medical History Attestation statement: The following information was validated with the patient. 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 Oriented X3. No acute distress. Eyes: Pupils equal, round and reactive to light. ENT: Pharynx normal. Neck: Normal inspection. Neck supple. No lymph nodes noted. No crepitus CVS: Normal heart rate and rhythm. Pulses normal. Normal S1 and S2 Respiratory: No respiratory distress. Breath sounds normal. No Wheezing. No rales Abdomen: Soft and nontender. No rigidity. No distention. good BS x4 Skin: Skin warm and dry. Normal skin color. Normal skin turgor. Extremities: No lower extremity edema. Neurovascular intact to all extremities. No Lacerations. No Rash Neuro: Oriented X 3. No motor deficit. No sensory deficit. Moving all extermities. No slurred speech MDM - Arrhythmia/Palpitations MDM Narrative Medical decision making narrative: Patient well-appearing. neurologically intact. Creatinine is normal. Patient's EKG showed a sinus pattern heart rate is 80 [place] QRS QT within normal limits there is no acute ST segment elevation noted. Patient in no distress. Labs normal. Will recheck blood pressure and have patient closely follow-up with her primary physician. On recheck patient's blood pressures proximally 140/100. Will have patient closely follow-up with her primary physician. Electrolytes are normal. She is in stable condition with discharge home Medical Records Attestation: I reviewed the patient's medical records. Lab Data Attestation: I reviewed the patient's lab results. Result diagrams: 11/18/21 13:13 11/18/21 13:13 Labs: Lab Results 11/18/21 11/18/21 11/18/21 Range/Units 13:13 13:13 13:13 WBC 5.9 (4.8-10.8) X10*3/uL RBC 4.79 (4.20-5.50) X10*6/uL Hgb 13.7 (12.0-16.0) g/dl Hct 40.4 (37.0-47.0) % MCV 84.3 (80.0-98.0) fL MCH 28.6 (27.0-33.0) pg MCHC 33.9 (31.0-35.0) g/dl RDW 13.3 (11.0-16.0) % Plt Count 282 (160-400) X10*3/uL MPV 9.9 (9.4-12.3) fL Immature Gran % (Auto) 0.2 (0.0-0.4) % Neut % (Auto) 60.4 (45-73) % Lymph % (Auto) 32.4 (20-40) % [place] % (Auto) 6.0 (2-11) % Eos % (Auto) 0.5 (0-4) % Baso % (Auto) 0.5 (0-2) % Lymph # (Auto) 1.9 (1.2-4.9) X10*3/uL [place] # (Auto) 0.4 (0.1-1.2) X10*3/uL Eos # (Auto) 0.0 (0.0-0.4) X10*3/uL Baso # (Auto) 0.0 (0.0-0.2) X10*3/uL Abs Immat Gran (auto) 0.01 (0.00-0.03) X10*3/uL Absolute Neuts (auto) 3.6 (2.0-8.3) x10*3/uL Absolute Nucleated RBC 0.000 (0.0-0.012) X10*3/uL Nucleated RBC % (auto) 0.0 (0.0-0.2) /100WBC Sodium 139 (135-145) mmol/L Potassium 3.6 (3.3-5.1) mmol/L Chloride 108 (96-108) mmol/L Carbon Dioxide 18 L (22-29) mmol/L Anion Gap 17 (12-20) BUN 11 (9-16) mg/dL Creatinine 0.97 (0.5-1.4) mg/dL Estim Creat Clear Calc 90.4 Estimated GFR > 60 Random Glucose 103 (60-115) mg/dL Calcium 9.6 (8.4-10.2) mg/dL Troponin I High Sens < 3.5 (<3.5-17.0) ng/L Discharge Plan Discharge Clinical Impression: Hypertension Patient Disposition: Home, Self-Care Instructions: Hypertension (ED) Prescriptions: No Action dicyclomine 20 mg tablet 20 mg PO QID 30 Days Qty: 120 6RF famotidine [Acid Anesthesia Attending (famotidine)] 20 mg tablet 20 mg PO BID Qty: 60 6RF hydrocortisone [Proctosol HC] 2.5 % cream with perineal applicator 1 appl [place] BID Qty: 30 3RF doxycycline hyclate 100 mg tablet 100 mg PO BID Qty: 14 0RF doxycycline hyclate 100 mg capsule 100 mg PO BID 7 Days Qty: 14 0RF cyclobenzaprine 10 mg tablet 10 mg PO BEDTIME PRN (Reason: muscle spasm) Qty: 3 0RF ibuprofen 400 mg tablet 400 mg PO Q6H 7 Days Qty: 28 0RF fluticasone propionate [Flonase Allergy Relief] 50 mcg/actuation spray,suspension 2 spray intranasal DAILY Qty: 16 0RF Rx Instructions: administer into each nostril gzhgpihmcb-pmndbpxxbosih-jdci [Fioricet] 50-300-40 mg capsule 1 cap PO Q8H PRN (Reason: pain) Qty: 3 0RF albuterol sulfate [Proventil HFA] 90 mcg/actuation HFA aerosol inhaler 1 inh inhalation QID montelukast [Singulair] 10 mg tablet 10 mg PO BEDTIME amitriptyline 10 mg tablet 10 mg PO DAILY loratadine [Allergy Relief (loratadine)] 10 mg tablet 10 mg PO DAILY trazodone 50 mg tablet 25 mg PO DAILY ketoconazole 2 % cream 1 applic topical DAILY cholecalciferol (vitamin D3) 25 mcg (1,000 unit) tablet 25 mcg PO DAILY Excedrin Migraine 250-250-65 mg tablet 1 tab PO Q4-6H PRN ondansetron HCl [Zofran] 4 mg tablet 4 mg PO Q8H sumatriptan succinate 50 mg tablet 50 mg PO Q2-4H PRN Rx Instructions: do not exceed 4 doses per 24 hrs medroxyprogesterone [Depo-Provera] 150 mg/mL suspension 150 mg IM Q12W Qty: 1 5RF metronidazole 500 mg tablet 500 mg PO Q12H Qty: 14 0RF Referrals: Lu Estrada MD [Primary Care Provider] - 11/19/21
[2021-11-18 22:45] VITALS: BP 133/85; PULSE 73; RESP 18; O2SAT 100
== END 2021-11-18 23:05 | disposition home or self-care (01) ==
PROVIDERS: Emergency Provider Emergency Medicine Emergency Medical Services; PCP Family Medicine
DX: I10 Essential (primary) hypertension (principal); Z79.82 Long term (current) use of aspirin; Z79.899 Other long term (current) drug therapy
CPT/HCPCS: 36415; 80048; 84484; 85025; 93005; 99283; 99284

== ENCOUNTER → 2022-01-13 09:08 | Outpatient (BNVA) | payer MEDICAID, SELFPAY | PROVIDERS: PCP Family Medicine; Visit Provider Advanced Practice Midwife | DX: Z30.42 Encounter for surveillance of injectable contraceptive (principal) | CPT/HCPCS: 96372; 99211 ==

== ENCOUNTER 2022-03-11 11:16 | Outpatient (REF) | payer MEDICAID, SELFPAY ==
--- NOTE | ~2022-03-11 | XR_ITS ---
EXAMINATION: XR SHOULDER, RIGHT CLINICAL INFORMATION: M25.511 - Pain in right shoulder COMPARISON: Right clavicle radiographs 04/29/2015 TECHNIQUE: Right shoulder is imaged in 3 views. FINDINGS: There is mild to moderate elevation of the distal right clavicle, similar to prior exam 04/29/2015, possible chronic acromioclavicular sprain. There is no fracture or dislocation or destructive process. The glenohumeral joint appears normal. No visible rotator cuff calcifications. XR/XR shoulder RT min 2V IMPRESSION: 1. Mild to moderate elevation distal right clavicle, similar to prior exam 04/29/2015, suggesting chronic acromioclavicular sprain. 2. No fracture or dislocation or visible rotator cuff calcifications.
== END 2022-03-11 11:17 | disposition home or self-care (01) ==
LOC: HO.HOSX 11:16
PROVIDERS: Visit Provider Physician Assistant
DX: M75.81 Other shoulder lesions, right shoulder (principal); M54.2 Cervicalgia
CPT/HCPCS: 73030; 99212

== ENCOUNTER 2022-03-16 10:21 | Outpatient (REF) | payer MEDICAID, SELFPAY ==
--- NOTE | ~2022-03-16 | XR_ITS ---
EXAMINATION: XR ABDOMEN WITH DECUBITUS VIEWS CLINICAL INDICATION: Unspecified abdominal pain. COMPARISON: None TECHNIQUE: KUB FINDINGS: The bowel gas pattern is normal with no evidence of ileus or obstruction. No unusual soft tissue calcifications are noted. The bones are unremarkable. XR/XR abdomen w decubitus IMPRESSION: Unremarkable KUB.
== END 2022-03-16 10:22 | disposition home or self-care (01) ==
LOC: HO.XRAY 10:21
PROVIDERS: PCP Family Medicine; Visit Provider Nurse Practitioner
DX: R10.9 Unspecified abdominal pain (principal); K21.9 Gastro-esophageal reflux disease without esophagitis; K58.9 Irritable bowel syndrome, unspecified
CPT/HCPCS: 74021; 99212

== ENCOUNTER → 2022-03-22 12:03 | Outpatient (BNVA) | payer MEDICAID, SELFPAY | PROVIDERS: PCP Family Medicine; Visit Provider Orthopaedic Surgery | DX: R20.0 Anesthesia of skin (principal); R20.2 Paresthesia of skin; R22.31 Localized swelling, mass and lump, right upper limb; Z87.39 Personal history of other diseases of the musculoskeletal system and connective tissue | CPT/HCPCS: 99212 ==

== ENCOUNTER 2022-03-22 14:18 | Emergency (ER) | payer MEDICAID, SELFPAY ==
--- NOTE | 2022-03-22 | ECG_ITS ---
Test Reason : CHEST PAIN Blood Pressure : / mmHG Vent. Rate : 069 BPM Atrial Rate : 069 BPM P-R Int : 144 ms QRS Dur : 094 ms QT Int : 374 ms P-R-T Axes : 030 056 053 degrees QTc Int : 400 ms Normal sinus rhythm Possible Left atrial enlargement Borderline ECG When compared with ECG of 18-NOV-2021 13:06, No significant change was found Referred By: Generic ED Physician Electronically Signed By:ADAM ALCALA MD
--- NOTE | ~2022-03-22 | XR_ITS ---
EXAMINATION: XR CHEST CLINICAL INFORMATION: Chest pain COMPARISON: Chest x-ray 05/22/2020 TECHNIQUE: Frontal view of the chest was obtained. FINDINGS: No significant abnormality is noted involving the heart, lungs, mediastinum, bony thorax or soft tissues. XR/XR chest 1V IMPRESSION: Unremarkable examination.
[2022-03-22 16:00] VITALS: BP 123/94; PULSE 79; RESP 18; TEMP 36.9; O2SAT 100; BMI 31.8
--- NOTE | 2022-03-22 16:01 | ED.GENADULT ---
HPI - General Adult General Chief complaint: General Medical <YONG Chinchilla - Last Filed: 03/22/22 16:03> Stated complaint: HBP/Chest pain <YONG Chinchilla - Last Filed: 03/22/22 16:03> Time Seen by Provider: 03/22/22 21:21 <YONG Chinchilla - Last Filed: 03/22/22 16:03> Source: patient <Landen Madden MD - Last Filed: 03/22/22 23:14> Mode of arrival: ambulatory <Landen Madden MD - Last Filed: 03/22/22 23:14> Limitations: no limitations <Landen Madden MD - Last Filed: 03/22/22 23:14> History of Present Illness HPI narrative: 36-year-old female came in for evaluation of headache, palpitation, fever, chills, hot flashes, feeling epigastric pain patient's symptoms started few weeks ago patient is already seen by GI patient was started on dicyclomine patient think that her symptoms is due to that medication. Patient declined sick contact, no recent travel, no recent prolonged immobilization. <Landen Madden MD - Last Filed: 03/22/22 23:14> Related Data Home medications: Home Medications Medication Instructions Recorded Confirmed albuterol sulfate 90 mcg/actuation 1 inh inhalation QID 01/15/20 10/20/21 aerosol inhaler (Proventil HFA) amitriptyline 10 mg tablet 10 mg PO DAILY 01/15/20 10/20/21 vfzpatv-uocgyrzklnzcu-wpurdqmn 250 1 tab PO Q4-6H PRN 01/15/20 10/20/21 mg-250 mg-65 mg tablet (Excedrin Migraine) ketoconazole 2 % topical cream 1 applic topical DAILY 01/15/20 10/20/21 loratadine 10 mg tablet (Allergy 10 mg PO DAILY 01/15/20 10/20/21 Relief (loratadine)) montelukast 10 mg tablet 10 mg PO BEDTIME 01/15/20 10/20/21 (Singulair) sumatriptan succinate 50 mg tablet 50 mg PO Q2-4H PRN 01/15/20 10/20/21 trazodone 50 mg tablet 25 mg PO DAILY 01/15/20 10/20/21 amlodipine 5 mg tablet 5 mg PO DAILY 03/16/22 cholecalciferol (vitamin D3) 50 50 mcg PO DAILY 03/16/22 mcg (2,000 unit) capsule (Vitamin D3) lisinopril 10 mg tablet 10 mg PO DAILY 03/16/22 pantoprazole 40 mg tablet,delayed 40 mg PO BID 03/16/22 release topiramate 25 mg tablet 25 mg PO BEDTIME 03/16/22 Previous Rx's Medication Instructions Recorded cyclobenzaprine 10 mg tablet 10 mg PO BEDTIME PRN muscle spasm 05/24/20 #3 tabs fluticasone propionate 50 2 spray intranasal DAILY #16 grams 01/28/21 mcg/actuation nasal spray,suspension (Flonase Allergy Relief) ibuprofen 400 mg tablet 400 mg PO Q6H 7 days #28 tabs 01/28/21 famotidine 20 mg tablet (Acid 20 mg PO BID #60 tabs 06/23/21 Wildlife Refuge Specialist (famotidine)) hydrocortisone 2.5 % topical cream 1 appl OR BID hemorrhoids #30 grams 06/23/21 with perineal applicator (Proctosol HC) medroxyprogesterone 150 mg/mL 150 mg IM Q12W #1 mL 07/13/21 intramuscular suspension (Depo-Provera) uextabiphe-bkciekliyqhgs-yimjilmv 1 cap PO Q8H PRN pain #3 caps 08/09/21 50 mg-300 mg-40 mg capsule (Fioricet) doxycycline hyclate 100 mg tablet 100 mg PO BID #14 tabs 10/21/21 doxycycline hyclate 100 mg capsule 100 mg PO BID 7 days #14 caps 10/25/21 metronidazole 500 mg tablet 500 mg PO Q12H #14 tabs 10/26/21 dicyclomine 20 mg tablet 40 mg PO QID 30 days #240 tabs 03/16/22 oaqjpb-rqyjeudt-tqpfgmo 1 cap PO QID 30 days #120 caps 03/16/22 24,000-76,000-120,000 unit capsule,delayed rel (Creon) ondansetron HCl 4 mg tablet 4 mg PO Q8H #14 tabs 03/16/22 simethicone 180 mg capsule 180 mg PO QID 30 days #120 caps 03/16/22 Angie Long PA - Last Filed: 03/22/22 16:03> Allergies/adverse reactions: Allergies Allergy/AdvReac Type Severity Reaction Status Date / Time No Known Allergies Allergy Verified 03/22/22 16:04 [No Known Allergies*] <YONG Chinchilla - Last Filed: 03/22/22 16:03> Review of Systems Review of Systems: All other systems are reviewed and are negative Constitutional: Reports as per HPI and Reports no additional constitutional complaints Eyes: Reports as per HPI and Reports no additional eye complaints Reports system reviewed and no additional complaints, except as documented Cardiovascular: Reports as per HPI and Reports no additional cardiovascular complaints Respiratory: Reports as per HPI and Reports no additional respiratory complaints Gastrointestinal: Reports as per HPI and Reports no additional gastrointestinal complaints Genitourinary: Reports no additional female genitourinary complaints Musculoskeletal: Reports no additional musculoskeletal complaints Skin/Breast: Reports system reviewed and no additional complaints, except as docu Psychiatric: Reports no additional psychiatric complaints Endocrine: Reports no additional endocrine complaints Hematologic/Lymphatic: Reports no additional hematologic/lymphatic complaints Allergic/Immunologic: Reports no additional allergic/immunologic complaints Reports system reviewed and no additional complaints, except as documented and Reports Abnormal speech present <Landen Madden MD - Last Filed: 03/22/22 23:14> [facility] Past Medical History Medical History: Medical History Asthma Fibromyalgia Hypertension IBS (irritable bowel syndrome) Migraines Simple ovarian cyst <YONG Chinchilla - Last Filed: 03/22/22 16:03> Surgical History: Surgical History Hx of tubal ligation <YONG Chinchilla - Last Filed: 03/22/22 16:03> Family History Family History: Family History Mother Diabetes HTN (hypertension) Asthma Brother Asthma <YONG Chinchilla - Last Filed: 03/22/22 16:03> Social History Social History: Social History Household Members: Children Alcohol intake: never Patient Tobacco Use Status: Never used Tobacco Smoked in Last 30 Days: No Use of substances other than those prescribed or required for medical reasons: No Advance Directives: No Advance Directives Information Provided: No Current occupational status: employed 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 Sexual orientation: Straight/Heterosexual Gender identity: Female <YONG Chinchilla - Last Filed: 03/22/22 16:03> Physical Exam ED Vital Signs: Vital Signs - 24 hr 03/22/22 16:00 03/22/22 21:08 03/22/22 23:02 Temperature 98.4 F 98.4 F 98.3 F Pulse Rate 79 73 68 Respiratory Rate 18 18 16 Blood Pressure 123/94 H 144/104 H 147/90 H Pulse Oximetry 100 98 100 Oxygen Delivery Method Room Air Room Air Room Air BMI result Body Mass Index 31.8 <YONG Chinchilla - Last Filed: 03/22/22 16:03> Vital Signs - 24 hr 03/22/22 16:00 03/22/22 21:08 03/22/22 23:02 Temperature 98.4 F 98.4 F 98.3 F Pulse Rate 79 73 68 Respiratory Rate 18 18 16 Blood Pressure 123/94 H 144/104 H 147/90 H Pulse Oximetry 100 98 100 Oxygen Delivery Method Room Air Room Air Room Air BMI result Body Mass Index 31.8 vital signs have been reviewed as appeared to be correct. Blood pressure normal. Heart rate normal. Respiration rate normal. Temperature normal. Oxygen saturation normal. <Landen Madden MD - Last Filed: 03/22/22 23:14> Appearance: Alert. Oriented X3. No acute distress. Head: Normal external exam. Normocephalic. Atraumatic. No Sandoval signs noted. No raccoon eyes noted Eyes: PERRLA. EOMI. Conjunctiva and sclera normal. Eyelids normal. ENT: TM's Normal. Pharynx normal. Uvula midline. Moist mucous membranes. No trismus noted. No drooling noted. No muffled voice noted. Neck: Normal inspection. Neck supple. FROM. No adenopathy. Thyroid Normal. No meningeal signs. No neck mass noted. CVS: Normal heart rate and rhythm. Heart sound normal. No murmurs noted. Pulses normal throughout. Respiratory: No respiratory distress. Painless inspiration. Breath sounds normal. No wheezes/rales/rhonchi noted. Chest nontender. No accessory muscle usage noted or decreased air movement noted. Abdomen: Soft and nontender. Bowel sounds normal in all 4 quadrants. No distention noted. No organomegaly noted. No visible injury noted. Back: No CVA tenderness. Full range of motion noted. Skin: Skin warm and dry. Normal skin color. Normal skin turgor. No rashes/lesions/lacerations noted. Extremities: No lower extremity edema. Extremities exhibit normal range of motion. Extremities nontender. Neuro: Oriented X 3. Cranial nerve exam: II-XII are grossly intact No motor deficit. No sensory deficit. Reflexes normal. <Landen Madden MD - Last Filed: 03/22/22 23:14> Course Course Course Narrative: RME: 1600 36 year old female hx of asthma, migranes, ibs, fibromyalgia, hypertension, depression presents w/ hot flashes, palpitations, chest pain, dizziness X > 1 week. No known thyroid issues. No significant cardiac issues PE: benign PERC negative Plan: labs, EKG, trop, xray <YONG Chinchilla - Last Filed: 03/22/22 16:03> Reevaluation(s) Reevaluation #1: 36-year-old female has multiple complaints and symptoms, slightly hypertensive patient usually take lisinopril 10 mg daily patient was given 1 extra dose, patient also received IV fluids Prilosec and Maalox help her epigastric pain that is due to gastritis and esophagitis which is chronic and the patient been seen by GI for it and currently under treatment and management by GI. Patient otherwise has unremarkable labs. Vital signs stable patient was reassured and discharged to follow-up with her PCP /GI. <Landen Madden MD - Last Filed: 03/22/22 23:14> Medications Administered Discontinued Medications Generic Name Dose Route Start Last Admin Trade Name Freq PRN Reason Stop Dose Admin Al Hydroxide/Mg Hydroxide 30 ml 03/22/22 21:29 03/22/22 22:37 Magnesium Hydrox/Alum Hydrox 30 Ml Oral.Susp PO 03/22/22 21:30 30 ml ONCE ONE Administration Famotidine 20 mg 03/22/22 21:29 03/22/22 22:37 Famotidine/Pf 20 Mg/2 Ml Vial IVPUSH 03/22/22 21:30 20 mg ONCE ONE Administration Sodium Chloride 1,000 mls @ 999 mls/hr 03/22/22 21:29 03/22/22 22:37 Ns IV 03/22/22 22:29 999 mls/hr .Q1H1M ONE Administration Lisinopril 10 mg 03/22/22 21:29 03/22/22 22:37 Lisinopril 10 Mg Tablet PO 03/22/22 21:30 10 mg ONCE ONE Administration Protocol <YONG Chinchilla - Last Filed: 03/22/22 16:03> Medications Administered Discontinued Medications Generic Name Dose Route Start Last Admin Trade Name Freq PRN Reason Stop Dose Admin Al Hydroxide/Mg Hydroxide 30 ml 03/22/22 21:29 03/22/22 22:37 Magnesium Hydrox/Alum Hydrox 30 Ml Oral.Susp PO 03/22/22 21:30 30 ml ONCE ONE Administration Famotidine 20 mg 03/22/22 21:29 03/22/22 22:37 Famotidine/Pf 20 Mg/2 Ml Vial IVPUSH 03/22/22 21:30 20 mg ONCE ONE Administration Sodium Chloride 1,000 mls @ 999 mls/hr 03/22/22 21:29 03/22/22 22:37 Ns IV 03/22/22 22:29 999 mls/hr .Q1H1M ONE Administration Lisinopril 10 mg 03/22/22 21:29 03/22/22 22:37 Lisinopril 10 Mg Tablet PO 03/22/22 21:30 10 mg ONCE ONE Administration Protocol <Landen Madden MD - Last Filed: 03/22/22 23:14> Medical Decision Making Differential Diagnosis Differential Diagnoses: The differential diagnosis associated with the presentation includes ( Gastritis/esophagitis / upper respiratory infection /viral infection/ uncontrolled essential hypertension /dehydration.) <Landen Madden MD - Last Filed: 03/22/22 23:14> Lab Data MDM Lab Attestation statement: I reviewed the patient's lab results. <Landen Madden MD - Last Filed: 03/22/22 23:14> Result Diagrams: : 03/22/22 16:21 03/22/22 16:21 <YONG Chinchilla - Last Filed: 03/22/22 16:03> Labs: Lab Results 03/22/22 03/22/22 03/22/22 Range/Units 16:21 16:21 16:21 WBC 7.8 (4.8-10.8) X10*3/uL RBC 5.08 (4.20-5.50) X10*6/uL Hgb 14.4 (12.0-16.0) g/dl Hct 43.4 (37.0-47.0) % MCV 85.4 (80.0-98.0) fL MCH 28.3 (27.0-33.0) pg MCHC 33.2 (31.0-35.0) g/dl RDW 13.2 (11.0-16.0) % Plt Count 257 (160-400) X10*3/uL MPV 10.7 (9.4-12.3) fL Immature Gran % (Auto) 0.3 (0.0-0.4) % Neut % (Auto) 53.9 (45-73) % Lymph % (Auto) 38.4 (20-40) % [place] % (Auto) 6.6 (2-11) % Eos % (Auto) 0.3 (0-4) % Baso % (Auto) 0.5 (0-2) % Lymph # (Auto) 3.0 (1.2-4.9) X10*3/uL [place] # (Auto) 0.5 (0.1-1.2) X10*3/uL Eos # (Auto) 0.0 (0.0-0.4) X10*3/uL Baso # (Auto) 0.0 (0.0-0.2) X10*3/uL Abs Immat Gran (auto) 0.02 (0.00-0.03) X10*3/uL Absolute Neuts (auto) 4.2 (2.0-8.3) x10*3/uL Absolute Nucleated RBC 0.000 (0.0-0.012) X10*3/uL Nucleated RBC % (auto) 0.0 (0.0-0.2) /100WBC Sodium 139 (135-145) mmol/L Potassium 4.0 (3.3-5.1) mmol/L Chloride 106 (96-108) mmol/L Carbon Dioxide 22 (22-29) mmol/L Anion Gap 15 (12-20) BUN 12 (9-16) mg/dL Creatinine 1.12 (0.5-1.4) mg/dL Estim Creat Clear Calc 79.6 Estimated GFR 56 Random Glucose 89 (60-115) mg/dL Calcium 10.2 D (8.4-10.2) mg/dL Magnesium 2.1 (1.6-2.6) mg/dL Total Bilirubin 0.9 (0.0-1.0) mg/dL AST 17 (5-31) U/L ALT 11 (0-31) U/L Alkaline Phosphatase 60 (39-117) U/L Troponin I High Sens < 3.5 (<3.5-17.0) ng/L Total Protein 8.5 H (6.5-8.0) g/dL Albumin 5.0 (3.5-5.0) g/dL Influenza Type A (PCR) (Negative) Influenza Type B (PCR) (Negative) RSV RNA Qual (PCR) (Negative) SARS-CoV-2 RNA (RT-PCR) (Negative) 03/22/22 Range/Units 16:21 WBC (4.8-10.8) X10*3/uL RBC (4.20-5.50) X10*6/uL Hgb (12.0-16.0) g/dl Hct (37.0-47.0) % MCV (80.0-98.0) fL MCH (27.0-33.0) pg MCHC (31.0-35.0) g/dl RDW (11.0-16.0) % Plt Count (160-400) X10*3/uL MPV (9.4-12.3) fL Immature Gran % (Auto) (0.0-0.4) % Neut % (Auto) (45-73) % Lymph % (Auto) (20-40) % Corson % (Auto) (2-11) % Eos % (Auto) (0-4) % Baso % (Auto) (0-2) % Lymph # (Auto) (1.2-4.9) X10*3/uL Corson # (Auto) (0.1-1.2) X10*3/uL Eos # (Auto) (0.0-0.4) X10*3/uL Baso # (Auto) (0.0-0.2) X10*3/uL Abs Immat Gran (auto) (0.00-0.03) X10*3/uL Absolute Neuts (auto) (2.0-8.3) x10*3/uL Absolute Nucleated RBC (0.0-0.012) X10*3/uL Nucleated RBC % (auto) (0.0-0.2) /100WBC Sodium (135-145) mmol/L Potassium (3.3-5.1) mmol/L Chloride (96-108) mmol/L Carbon Dioxide (22-29) mmol/L Anion Gap (12-20) BUN (9-16) mg/dL Creatinine (0.5-1.4) mg/dL Estim Creat Clear Calc Estimated GFR Random Glucose (60-115) mg/dL Calcium (8.4-10.2) mg/dL Magnesium (1.6-2.6) mg/dL Total Bilirubin (0.0-1.0) mg/dL AST (5-31) U/L ALT (0-31) U/L Alkaline Phosphatase (39-117) U/L Troponin I High Sens (<3.5-17.0) ng/L Total Protein (6.5-8.0) g/dL Albumin (3.5-5.0) g/dL Influenza Type A (PCR) NEGATIVE (Negative) Influenza Type B (PCR) NEGATIVE (Negative) RSV RNA Qual (PCR) NEGATIVE (Negative) SARS-CoV-2 RNA (RT-PCR) NEGATIVE (Negative) <YONG Chinchilla - Last Filed: 03/22/22 16:03> Lab Results 03/22/22 03/22/22 03/22/22 Range/Units 16:21 16:21 16:21 WBC 7.8 (4.8-10.8) X10*3/uL RBC 5.08 (4.20-5.50) X10*6/uL Hgb 14.4 (12.0-16.0) g/dl Hct 43.4 (37.0-47.0) % MCV 85.4 (80.0-98.0) fL MCH 28.3 (27.0-33.0) pg MCHC 33.2 (31.0-35.0) g/dl RDW 13.2 (11.0-16.0) % Plt Count 257 (160-400) X10*3/uL MPV 10.7 (9.4-12.3) fL Immature Gran % (Auto) 0.3 (0.0-0.4) % Neut % (Auto) 53.9 (45-73) % Lymph % (Auto) 38.4 (20-40) % Corson % (Auto) 6.6 (2-11) % Eos % (Auto) 0.3 (0-4) % Baso % (Auto) 0.5 (0-2) % Lymph # (Auto) 3.0 (1.2-4.9) X10*3/uL Corson # (Auto) 0.5 (0.1-1.2) X10*3/uL Eos # (Auto) 0.0 (0.0-0.4) X10*3/uL Baso # (Auto) 0.0 (0.0-0.2) X10*3/uL Abs Immat Gran (auto) 0.02 (0.00-0.03) X10*3/uL Absolute Neuts (auto) 4.2 (2.0-8.3) x10*3/uL Absolute Nucleated RBC 0.000 (0.0-0.012) X10*3/uL Nucleated RBC % (auto) 0.0 (0.0-0.2) /100WBC Sodium 139 (135-145) mmol/L Potassium 4.0 (3.3-5.1) mmol/L Chloride 106 (96-108) mmol/L Carbon Dioxide 22 (22-29) mmol/L Anion Gap 15 (12-20) BUN 12 (9-16) mg/dL Creatinine 1.12 (0.5-1.4) mg/dL Estim Creat Clear Calc 79.6 Estimated GFR 56 Random Glucose 89 (60-115) mg/dL Calcium 10.2 D (8.4-10.2) mg/dL Magnesium 2.1 (1.6-2.6) mg/dL Total Bilirubin 0.9 (0.0-1.0) mg/dL AST 17 (5-31) U/L ALT 11 (0-31) U/L Alkaline Phosphatase 60 (39-117) U/L Troponin I High Sens < 3.5 (<3.5-17.0) ng/L Total Protein 8.5 H (6.5-8.0) g/dL Albumin 5.0 (3.5-5.0) g/dL Influenza Type A (PCR) (Negative) Influenza Type B (PCR) (Negative) RSV RNA Qual (PCR) (Negative) SARS-CoV-2 RNA (RT-PCR) (Negative) 03/22/22 Range/Units 16:21 WBC (4.8-10.8) X10*3/uL RBC (4.20-5.50) X10*6/uL Hgb (12.0-16.0) g/dl Hct (37.0-47.0) % MCV (80.0-98.0) fL MCH (27.0-33.0) pg MCHC (31.0-35.0) g/dl RDW (11.0-16.0) % Plt Count (160-400) X10*3/uL MPV (9.4-12.3) fL Immature Gran % (Auto) (0.0-0.4) % Neut % (Auto) (45-73) % Lymph % (Auto) (20-40) % Corson % (Auto) (2-11) % Eos % (Auto) (0-4) % Baso % (Auto) (0-2) % Lymph # (Auto) (1.2-4.9) X10*3/uL Corson # (Auto) (0.1-1.2) X10*3/uL Eos # (Auto) (0.0-0.4) X10*3/uL Baso # (Auto) (0.0-0.2) X10*3/uL Abs Immat Gran (auto) (0.00-0.03) X10*3/uL Absolute Neuts (auto) (2.0-8.3) x10*3/uL Absolute Nucleated RBC (0.0-0.012) X10*3/uL Nucleated RBC % (auto) (0.0-0.2) /100WBC Sodium (135-145) mmol/L Potassium (3.3-5.1) mmol/L Chloride (96-108) mmol/L Carbon Dioxide (22-29) mmol/L Anion Gap (12-20) BUN (9-16) mg/dL Creatinine (0.5-1.4) mg/dL Estim Creat Clear Calc Estimated GFR Random Glucose (60-115) mg/dL Calcium (8.4-10.2) mg/dL Magnesium (1.6-2.6) mg/dL Total Bilirubin (0.0-1.0) mg/dL AST (5-31) U/L ALT (0-31) U/L Alkaline Phosphatase (39-117) U/L Troponin I High Sens (<3.5-17.0) ng/L Total Protein (6.5-8.0) g/dL Albumin (3.5-5.0) g/dL Influenza Type A (PCR) NEGATIVE (Negative) Influenza Type B (PCR) NEGATIVE (Negative) RSV RNA Qual (PCR) NEGATIVE (Negative) SARS-CoV-2 RNA (RT-PCR) NEGATIVE (Negative) <Landen Madden MD - Last Filed: 03/22/22 23:14> Independent Interpretation I performed an independent interpretation of an: EKG ( Normal sinus rhythm at 69 beats per minutes, normal axis deviation, normal intervals, no ST-T changes, no change from previous EKG.) and Plain X-Ray ( Chest: No acute intrathoracic pathology.) <Landen Madden MD - Last Filed: 03/22/22 23:14> Radiology Impression Discussion of test interpretation with radiology: I have reviewed the radiologist's reading. <Landen Madden MD - Last Filed: 03/22/22 23:14> Discharge Plan Discharge Clinical Impression: Hypertension, uncontrolled, Gastritis <YONG Chinchilla - Last Filed: 03/22/22 16:03> Patient Disposition: Home, Self-Care <YONG Chinchilla - Last Filed: 03/22/22 16:03> Instructions: Gastritis (ED), Hypertension (ED) <YONG Chinchilla - Last Filed: 03/22/22 16:03> Prescriptions: No Action famotidine [Acid Wildlife Refuge Specialist (famotidine)] 20 mg tablet 20 mg PO BID Qty: 60 6RF hydrocortisone [Proctosol HC] 2.5 % cream with perineal applicator 1 appl OR BID Qty: 30 3RF doxycycline hyclate 100 mg tablet 100 mg PO BID Qty: 14 0RF doxycycline hyclate 100 mg capsule 100 mg PO BID 7 Days Qty: 14 0RF cyclobenzaprine 10 mg tablet 10 mg PO BEDTIME PRN (Reason: muscle spasm) Qty: 3 0RF ibuprofen 400 mg tablet 400 mg PO Q6H 7 Days Qty: 28 0RF fluticasone propionate [Flonase Allergy Relief] 50 mcg/actuation spray,suspension 2 spray intranasal DAILY Qty: 16 0RF Rx Instructions: administer into each nostril khqauxqlcx-uezkzqblxobac-iyif [Fioricet] 50-300-40 mg capsule 1 cap PO Q8H PRN (Reason: pain) Qty: 3 0RF albuterol sulfate [Proventil HFA] 90 mcg/actuation HFA aerosol inhaler 1 inh inhalation QID montelukast [Singulair] 10 mg tablet 10 mg PO BEDTIME amitriptyline 10 mg tablet 10 mg PO DAILY loratadine [Allergy Relief (loratadine)] 10 mg tablet 10 mg PO DAILY trazodone 50 mg tablet 25 mg PO DAILY ketoconazole 2 % cream 1 applic topical DAILY Excedrin Migraine 250-250-65 mg tablet 1 tab PO Q4-6H PRN sumatriptan succinate 50 mg tablet 50 mg PO Q2-4H PRN Rx Instructions: do not exceed 4 doses per 24 hrs medroxyprogesterone [Depo-Provera] 150 mg/mL suspension 150 mg IM Q12W Qty: 1 5RF metronidazole 500 mg tablet 500 mg PO Q12H Qty: 14 0RF lisinopril 10 mg tablet 10 mg PO DAILY cholecalciferol (vitamin D3) [Vitamin D3] 50 mcg (2,000 unit) capsule 50 mcg PO DAILY pantoprazole 40 mg tablet,delayed release (DR/EC) 40 mg PO BID amlodipine 5 mg tablet 5 mg PO DAILY topiramate 25 mg tablet 25 mg PO BEDTIME Creon 24,000-76,000 -120,000 unit capsule,delayed release(DR/EC) 1 cap PO QID 30 Days Qty: 120 6RF Rx Instructions: administer with meals and/or snacks simethicone 180 mg capsule 180 mg PO QID 30 Days Qty: 120 3RF Rx Instructions: after meals ondansetron HCl 4 mg tablet 4 mg PO Q8H Qty: 14 0RF dicyclomine 20 mg tablet 40 mg PO QID 30 Days Qty: 240 6RF <YONG Chinchilla - Last Filed: 03/22/22 16:03> Referrals: Cait Will ANP-C [Nurse Practitioner] - Lu Estrada MD [Primary Care Provider] - <YONG Chinchilla - Last Filed: 03/22/22 16:03>
[2022-03-22 16:28] LABS: MANUAL DIFF FLAG NO
[2022-03-22 16:29] LABS: Basophils Percent Auto 0.5 % (0-2); Eosinophils Percent Auto 0.3 % (0-4); Hematocrit 43.4 % (37.0-47.0); Hemoglobin 14.4 g/dl (12.0-16.0); Imm Gran Abs Auto 0.02 X10*3/uL (0.00-0.03); Imm Gran Pct Auto 0.3 % (0.0-0.4); Lymphocytes Percent Auto 38.4 % (20-40); Mean Corpuscular HGB Conc 33.2 g/dl (31.0-35.0); Mean Corpuscular Hemoglobin 28.3 pg (27.0-33.0); Mean Corpuscular Volume 85.4 fL (80.0-98.0); Mean Platelet Volume 10.7 fL (9.4-12.3); Monocytes Absolute Auto 0.5 X10*3/uL (0.1-1.2); Monocytes Percent Auto 6.6 % (2-11); Neutrophils Absolute Auto 4.2 x10*3/uL (2.0-8.3); Neutrophils Percent Auto 53.9 % (45-73); Platelet Count 257 X10*3/uL (160-400); Red Blood Count 5.08 X10*6/uL (4.20-5.50); Red Cell Distribution Width 13.2 % (11.0-16.0); White Blood Count 7.8 X10*3/uL (4.8-10.8)
[2022-03-22 16:47] LABS: Alanine Aminotransferase 11 U/L (0-31); Alkaline Phosphatase 60 U/L (39-117); Anion Gap 15 (12-20); Aspartate Amino Transferase 17 U/L (5-31); Bilirubin Total 0.9 mg/dL (0.0-1.0); Blood Urea Nitrogen 12 mg/dL (9-16); Calcium 10.2 mg/dL (8.4-10.2); Carbon Dioxide 22 mmol/L (22-29); Chloride 106 mmol/L (96-108); Creatinine Clr Calc Pharmacy 79.6; Estimated Glomerular Filt Rate 56; Glucose Random 89 mg/dL (60-115); Magnesium 2.1 mg/dL (1.6-2.6); Sodium 139 mmol/L (135-145); Total Protein 8.5 g/dL (6.5-8.0)
[2022-03-22 16:55] LABS: Troponin-I High Sensitivity < 3.5 ng/L (<3.5-17.0)
[2022-03-22 17:08] LABS: Influenza A PCR NEGATIVE (Negative); Influenza B PCR NEGATIVE (Negative); Resp Syncy Virus RNA Qual PCR NEGATIVE (Negative); SARS COV2 PCR INHOUSE NEGATIVE (Negative)
[2022-03-22 21:08] VITALS: BP 144/104; PULSE 73; RESP 18; TEMP 36.9; O2SAT 98
[2022-03-22] MEDS: 0.9 % Sodium Chloride 1,000 ML 999 ML IV (22:37)
[2022-03-22] MEDS: Famotidine/PF 20 MG/2 ML VIAL IVPUSH (22:37)
[2022-03-22] MEDS: Magnesium Hydrox/Alum Hydrox 30 ML ORAL.SUSP PO (22:37)
[2022-03-22] MEDS: lisinopriL 10 MG TABLET PO (22:37)
--- NOTE | 2022-03-22 22:43 | PC.NURSE ---
Pt calm and cooperative. Meds administered per MAY. Pt ambulated to restroom for urine sample. Ambulates safely and independently.
[2022-03-22 23:02] VITALS: BP 147/90; PULSE 68; RESP 16; TEMP 36.8; O2SAT 100
[2022-03-22 23:15] LABS: Appearance Urine Clear; Color Urine Yellow; Glucose Urine UA Negative (Negative); Leukocyte Esterase Urine Negative (Negative); Nitrite Urine Negative (Negative); PH 5.5 (5.0-9.0); Specific Gravity - Urine 1.025 (1.005-1.025); UMIC TRIGGER UACC YES; Urine Blood Trace (Negative); Urine Ketones 15 mg/dL (Negative); Urine Protein Negative (Neg-Trace)
[2022-03-22 23:17] LABS: Bacteria Urine None Seen (None Seen); Hyaline Casts Urine 0-2 /LPF (0-2); RBC Urine 0-2 /HPF (0-2); WBC Urine 0-5 /HPF (0-5)
== END 2022-03-22 23:47 | disposition home or self-care (01) ==
PROVIDERS: Physician Assistant; Emergency Provider Emergency Medicine; PCP Family Medicine
DX: K29.70 Gastritis, unspecified, without bleeding (principal); R07.89 Other chest pain; I10 Essential (primary) hypertension; R51.9 Headache, unspecified; R00.2 Palpitations; R10.13 Epigastric pain; Z20.822 Contact with and (suspected) exposure to COVID-19; Z79.899 Other long term (current) drug therapy
CPT/HCPCS: 0241U; 36415; 71045; 80053; 81001; 83735; 84484; 85025; 93005; 96374; 99284

== ENCOUNTER → 2022-03-24 10:57 | Outpatient (BNVA) | payer MEDICAID, SELFPAY | PROVIDERS: PCP Family Medicine; Visit Provider Nurse Practitioner | DX: K58.9 Irritable bowel syndrome, unspecified (principal); K21.9 Gastro-esophageal reflux disease without esophagitis; G43.909 Migraine, unspecified, not intractable, without status migrainosus | CPT/HCPCS: 99212 ==

== ENCOUNTER 2022-03-31 09:15 | Outpatient (REF) | payer MEDICAID, SELFPAY ==
[2022-03-31 14:05] LABS: CT PCR NOT DETECTED (Not Detect.)
[2022-03-31 14:06] LABS: NG PCR NOT DETECTED (Not Detect.)
[2022-04-01 14:08] LABS: BV Int Neg Control Negative (Negative); BV Int Pos Control Positive (Positive)
== END 2022-03-31 09:16 | disposition home or self-care (01) ==
LOC: HO.LNP 09:15
PROVIDERS: PCP Family Medicine; Visit Provider Advanced Practice Midwife
DX: Z11.3 Encounter for screening for infections with a predominantly sexual mode of transmission (principal); A74.9 Chlamydial infection, unspecified; B96.89 Other specified bacterial agents as the cause of diseases classified elsewhere; N76.0 Acute vaginitis; Z20.2 Contact with and (suspected) exposure to infections with a predominantly sexual mode of transmission
CPT/HCPCS: 0353U; 87480; 87510; 87660; 99212

== ENCOUNTER → 2022-04-14 11:06 | Outpatient (BNVA) | payer MEDICAID, SELFPAY | PROVIDERS: PCP Family Medicine; Visit Provider Advanced Practice Midwife | DX: Z30.42 Encounter for surveillance of injectable contraceptive (principal) | CPT/HCPCS: 96372; 99211 ==

== ENCOUNTER 2022-04-23 11:37 | Emergency (ER) | payer MEDICAID, SELFPAY ==
--- NOTE | ~2022-04-23 | CT_ITS ---
EXAMINATION: CT HEAD WITHOUT CONTRAST CLINICAL INFORMATION: Headache. COMPARISON: None TECHNIQUE: Contiguous axial imaging was performed from the skull base to vertex without intravenous administration of contrast. This CT examination was performed using dose optimization techniques as appropriate, variously including the following: *Automated exposure control *Adjustment of mA and/or kV according to patient size (this includes techniques or standardized protocols for targeted exams where dose is matched to indication/reason for exam; i.e. extremities or head) *Use of iterative reconstruction technique DLP: 614 mGy-cm FINDINGS: There is no acute intra-axial, extra-axial bleed, masses or midline shift. There is no acute infarction evolution. There is no edema. The lateral ventricles are symmetrical in size and configuration without enlargement. The munson to white matter differentiation is maintained normal. Bone windows reveal no calvarial abnormality. There is no scalp soft tissue abnormality. Bilateral paranasal sinuses and mastoid air cells are well-aerated. CT/CT head/brain wo IV con IMPRESSION: No acute intracranial process seen.
[2022-04-23 11:52] VITALS: BP 146/103; PULSE 95; RESP 20; TEMP 36.3; O2SAT 99; BMI 30.7
--- NOTE | 2022-04-23 11:52 | ED_ITS ---
HPI - General Adult General Chief complaint: Headache Stated complaint: pain in back of head Time Seen by Provider: 04/23/22 12:12 Related Data Home Medications Medication Instructions Recorded Confirmed albuterol sulfate 90 mcg/actuation 1 inh inhalation QID 01/15/20 03/31/22 aerosol inhaler (Proventil HFA) uwbfisc-gjwfgsgauwcee-mcexfwph 250 1 tab PO Q4-6H PRN 01/15/20 03/31/22 mg-250 mg-65 mg tablet (Excedrin Migraine) loratadine 10 mg tablet (Allergy 10 mg PO DAILY 01/15/20 03/31/22 Relief (loratadine)) montelukast 10 mg tablet 10 mg PO BEDTIME 01/15/20 03/31/22 (Singulair) cholecalciferol (vitamin D3) 50 50 mcg PO DAILY 03/16/22 03/31/22 mcg (2,000 unit) capsule (Vitamin D3) lisinopril 10 mg tablet 10 mg PO DAILY 03/16/22 03/31/22 pantoprazole 40 mg tablet,delayed 40 mg PO BID 03/16/22 03/31/22 release Previous Rx's Medication Instructions Recorded cyclobenzaprine 10 mg tablet 10 mg PO BEDTIME PRN muscle spasm 05/24/20 #3 tabs ibuprofen 400 mg tablet 400 mg PO Q6H 7 days #28 tabs 01/28/21 famotidine 20 mg tablet (Acid 20 mg PO BID #60 tabs 06/23/21 Personal Lines Account Executive (famotidine)) medroxyprogesterone 150 mg/mL 150 mg IM Q12W #1 mL 07/13/21 intramuscular suspension (Depo-Provera) nalkbealgp-sspihcamizzai-qqtiszwc 1 cap PO Q8H PRN pain #3 caps 08/09/21 50 mg-300 mg-40 mg capsule (Fioricet) dicyclomine 20 mg tablet 40 mg PO QID 30 days #240 tabs 03/16/22 pfwaum-jkgegzph-lxexekv 1 cap PO QID 30 days #120 caps 03/16/22 24,000-76,000-120,000 unit capsule,delayed rel (Creon) ondansetron HCl 4 mg tablet 4 mg PO Q8H #14 tabs 03/16/22 simethicone 180 mg capsule 180 mg PO QID 30 days #120 caps 03/16/22 propranolol 60 mg capsule,24 60 mg PO BEDTIME #30 caps 03/24/22 hr,extended release sumatriptan succinate 50 mg tablet 50 mg PO Q2-4H PRN migraine 03/24/22 headache #14 tabs metronidazole 500 mg tablet 500 mg PO BID 7 days #14 tabs 04/04/22 oxycodone 5 mg capsule 5 mg PO Q8H PRN pain #8 caps 04/23/22 Allergies Allergy/AdvReac Type Severity Reaction Status Date / Time No Known Allergies Allergy Verified 03/31/22 09:23 [No Known Allergies*] ON LICENSE OF [facility] Past Medical History Medical History Asthma Fibromyalgia Hypertension IBS (irritable bowel syndrome) Migraines Simple ovarian cyst Surgical History Hx of tubal ligation Family History Family History Mother Diabetes HTN (hypertension) Asthma Brother Asthma Social History Social History Household Members: Children Alcohol intake: never Patient Tobacco Use Status: Never used Tobacco Advance Directives: No Current occupational status: employed 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 Patient is a 36 year old female presenting to the emergency department with left sided facial and head pain. Patient states that she has a history of migraines but this is not the same as her normal migraine pain. Labs ordered. Patient placed back in waiting room pending results and room availability. Medications Administered Discontinued Medications Generic Name Dose Route Start Last Admin Trade Name Freq PRN Reason Stop Dose Admin Oxycodone HCl 5 mg 04/23/22 12:23 04/23/22 12:28 Oxycodone Hcl Immed Release 5 Mg Tablet PO 04/23/22 12:24 5 mg ONCE ONE Administration Medical Decision Making Lab Data 04/23/22 11:59 04/23/22 11:59 Labs: Lab Results 04/23/22 04/23/22 04/23/22 Range/Units 11:59 11:59 11:59 WBC 8.0 (4.8-10.8) X10*3/uL RBC 5.01 (4.20-5.50) X10*6/uL Hgb 14.4 (12.0-16.0) g/dl Hct 42.8 (37.0-47.0) % MCV 85.4 (80.0-98.0) fL MCH 28.7 (27.0-33.0) pg MCHC 33.6 (31.0-35.0) g/dl RDW 13.5 (11.0-16.0) % Plt Count 295 (160-400) X10*3/uL MPV 10.5 (9.4-12.3) fL Immature Gran % (Auto) 0.1 (0.0-0.4) % Neut % (Auto) 45.6 (45-73) % Lymph % (Auto) 45.9 H (20-40) % [place] % (Auto) 6.4 (2-11) % Eos % (Auto) 1.5 (0-4) % Baso % (Auto) 0.5 (0-2) % Lymph # (Auto) 3.7 (1.2-4.9) X10*3/uL [place] # (Auto) 0.5 (0.1-1.2) X10*3/uL Eos # (Auto) 0.1 (0.0-0.4) X10*3/uL Baso # (Auto) 0.0 (0.0-0.2) X10*3/uL Abs Immat Gran (auto) 0.01 (0.00-0.03) X10*3/uL Absolute Neuts (auto) 3.6 (2.0-8.3) x10*3/uL Absolute Nucleated RBC 0.000 (0.0-0.012) X10*3/uL Nucleated RBC % (auto) 0.0 (0.0-0.2) /100WBC ESR 4 (0-20) MM/HR Sodium 139 (135-145) mmol/L Potassium 4.0 (3.3-5.1) mmol/L Chloride 108 (96-108) mmol/L Carbon Dioxide 24 (22-29) mmol/L Anion Gap 11 L (12-20) BUN 13 (9-16) mg/dL Creatinine 1.11 (0.5-1.4) mg/dL Estim Creat Clear Calc 79.0 Estimated GFR 56 Random Glucose 88 (60-115) mg/dL Calcium 9.9 (8.4-10.2) mg/dL Magnesium 2.1 (1.6-2.6) mg/dL Total Bilirubin 0.5 (0.0-1.0) mg/dL AST 14 (5-31) U/L ALT 10 (0-31) U/L Alkaline Phosphatase 56 (39-117) U/L C-Reactive Protein < 0.10 (< or = 0.50) mg/dL Total Protein 7.5 (6.5-8.0) g/dL Albumin 4.4 (3.5-5.0) g/dL Beta HCG, Quant < 2 mIU/mL Influenza Type A (PCR) (Negative) Influenza Type B (PCR) (Negative) RSV RNA Qual (PCR) (Negative) SARS-CoV-2 RNA (RT-PCR) (Negative) 04/23/22 Range/Units 11:59 WBC (4.8-10.8) X10*3/uL RBC (4.20-5.50) X10*6/uL Hgb (12.0-16.0) g/dl Hct (37.0-47.0) % MCV (80.0-98.0) fL MCH (27.0-33.0) pg MCHC (31.0-35.0) g/dl RDW (11.0-16.0) % Plt Count (160-400) X10*3/uL MPV (9.4-12.3) fL Immature Gran % (Auto) (0.0-0.4) % Neut % (Auto) (45-73) % Lymph % (Auto) (20-40) % [place] % (Auto) (2-11) % Eos % (Auto) (0-4) % Baso % (Auto) (0-2) % Lymph # (Auto) (1.2-4.9) X10*3/uL [place] # (Auto) (0.1-1.2) X10*3/uL Eos # (Auto) (0.0-0.4) X10*3/uL Baso # (Auto) (0.0-0.2) X10*3/uL Abs Immat Gran (auto) (0.00-0.03) X10*3/uL Absolute Neuts (auto) (2.0-8.3) x10*3/uL Absolute Nucleated RBC (0.0-0.012) X10*3/uL Nucleated RBC % (auto) (0.0-0.2) /100WBC ESR (0-20) MM/HR Sodium (135-145) mmol/L Potassium (3.3-5.1) mmol/L Chloride (96-108) mmol/L Carbon Dioxide (22-29) mmol/L Anion Gap (12-20) BUN (9-16) mg/dL Creatinine (0.5-1.4) mg/dL Estim Creat Clear Calc Estimated GFR Random Glucose (60-115) mg/dL Calcium (8.4-10.2) mg/dL Magnesium (1.6-2.6) mg/dL Total Bilirubin (0.0-1.0) mg/dL AST (5-31) U/L ALT (0-31) U/L Alkaline Phosphatase (39-117) U/L C-Reactive Protein (< or = 0.50) mg/dL Total Protein (6.5-8.0) g/dL Albumin (3.5-5.0) g/dL Beta HCG, Quant mIU/mL Influenza Type A (PCR) NEGATIVE (Negative) Influenza Type B (PCR) NEGATIVE (Negative) RSV RNA Qual (PCR) NEGATIVE (Negative) SARS-CoV-2 RNA (RT-PCR) NEGATIVE (Negative) Discharge Plan Discharge Clinical Impression: Headache Patient Disposition: Home, Self-Care Instructions: Acute Headache (ED) Additional Instructions: follow up with Primary care return if worse Prescriptions: New oxycodone 5 mg capsule 5 mg PO Q8H PRN (Reason: pain) Qty: 8 0RF Rx Instructions: Partial Fill upon patient request. No Action famotidine [Acid Personal [employer] Account Executive (famotidine)] 20 mg tablet 20 mg PO BID Qty: 60 6RF metronidazole 500 mg tablet 500 mg PO BID 7 Days Qty: 14 0RF cyclobenzaprine 10 mg tablet 10 mg PO BEDTIME PRN (Reason: muscle spasm) Qty: 3 0RF ibuprofen 400 mg tablet 400 mg PO Q6H 7 Days Qty: 28 0RF rtueupspwe-tdtxcnhxkagxv-yaci [Fioricet] 50-300-40 mg capsule 1 cap PO Q8H PRN (Reason: pain) Qty: 3 0RF albuterol sulfate [Proventil HFA] 90 mcg/actuation HFA aerosol inhaler 1 inh inhalation QID montelukast [Singulair] 10 mg tablet 10 mg PO BEDTIME loratadine [Allergy Relief (loratadine)] 10 mg tablet 10 mg PO DAILY Excedrin Migraine 250-250-65 mg tablet 1 tab PO Q4-6H PRN medroxyprogesterone [Depo-Provera] 150 mg/mL suspension 150 mg IM Q12W Qty: 1 5RF lisinopril 10 mg tablet 10 mg PO DAILY cholecalciferol (vitamin D3) [Vitamin D3] 50 mcg (2,000 unit) capsule 50 mcg PO DAILY pantoprazole 40 mg tablet,delayed release (DR/EC) 40 mg PO BID Creon 24,000-76,000 -120,000 unit capsule,delayed release(DR/EC) 1 cap PO QID 30 Days Qty: 120 6RF Rx Instructions: administer with meals and/or snacks simethicone 180 mg capsule 180 mg PO QID 30 Days Qty: 120 3RF Rx Instructions: after meals ondansetron HCl 4 mg tablet 4 mg PO Q8H Qty: 14 0RF dicyclomine 20 mg tablet 40 mg PO QID 30 Days Qty: 240 6RF propranolol 60 mg capsule,extended release 24 hr 60 mg PO BEDTIME Qty: 30 3RF sumatriptan succinate 50 mg tablet 50 mg PO Q2-4H PRN (Reason: migraine headache) Qty: 14 3RF Rx Instructions: do not exceed 4 doses per 24 hrs Referrals: Lu Estrada MD [Primary Care Provider] - 2 days Interventions: ED Discharge Assessment Last Done: 04/23/22 16:08 Discharge Date/Time: 04/23/22 16:10
[2022-04-23 12:04] LABS: MANUAL DIFF FLAG NO
[2022-04-23 12:08] LABS: Basophils Percent Auto 0.5 % (0-2); Eosinophils Absolute Auto 0.1 X10*3/uL (0.0-0.4); Eosinophils Percent Auto 1.5 % (0-4); Hematocrit 42.8 % (37.0-47.0); Hemoglobin 14.4 g/dl (12.0-16.0); Imm Gran Abs Auto 0.01 X10*3/uL (0.00-0.03); Imm Gran Pct Auto 0.1 % (0.0-0.4); Lymphocytes Absolute Auto 3.7 X10*3/uL (1.2-4.9); Lymphocytes Percent Auto 45.9 % (20-40); Mean Corpuscular HGB Conc 33.6 g/dl (31.0-35.0); Mean Corpuscular Hemoglobin 28.7 pg (27.0-33.0); Mean Corpuscular Volume 85.4 fL (80.0-98.0); Mean Platelet Volume 10.5 fL (9.4-12.3); Monocytes Absolute Auto 0.5 X10*3/uL (0.1-1.2); Monocytes Percent Auto 6.4 % (2-11); Neutrophils Absolute Auto 3.6 x10*3/uL (2.0-8.3); Neutrophils Percent Auto 45.6 % (45-73); Platelet Count 295 X10*3/uL (160-400); Red Blood Count 5.01 X10*6/uL (4.20-5.50); Red Cell Distribution Width 13.5 % (11.0-16.0)
--- NOTE | 2022-04-23 12:22 | PC.NURSE ---
Patient resting comfortably no distress noted. Reports left sided headache with associated ear and tooth pain, no recent dental issues patient reports she does take medication for migraines but has been ineffective. No facial droop no deviation of tongue no slurring of words. Grasp equal 5/5 strength no drift noted. PAtient denies chest pain or SOB. AOx 4 deies any recent trauma will CTM
--- NOTE | 2022-04-23 12:24 | ED_ITS ---
HPI - Headache General Chief Complaint: Headache Stated Complaint: pain in back of head Time Seen by Provider: 04/23/22 12:12 Source: patient Mode of arrival: ambulatory Limitations: no limitations History of Present Illness HPI Narrative: This is a 36 years old female with history of migraines the headache/fibromy algia myofascial neck pain presented to the ED complaining of headache since yesterday. She denies any fever, vomiting. MD elicited complaint: headache Onset (ago): day(s) (1) Onset description: gradually Location: left and occipital Quality & Timing: aching Exacerbating factors: none Relieving factors: nothing Context: occurred at rest Associated symptoms: none Related Data Home Medications Medication Instructions Recorded Confirmed albuterol sulfate 90 mcg/actuation 1 inh inhalation QID 01/15/20 03/31/22 aerosol inhaler (Proventil HFA) ycopsmt-rbbdboepeynes-cniaxamv 250 1 tab PO Q4-6H PRN 01/15/20 03/31/22 mg-250 mg-65 mg tablet (Excedrin Migraine) loratadine 10 mg tablet (Allergy 10 mg PO DAILY 01/15/20 03/31/22 Relief (loratadine)) montelukast 10 mg tablet 10 mg PO BEDTIME 01/15/20 03/31/22 (Singulair) cholecalciferol (vitamin D3) 50 50 mcg PO DAILY 03/16/22 03/31/22 mcg (2,000 unit) capsule (Vitamin D3) lisinopril 10 mg tablet 10 mg PO DAILY 03/16/22 03/31/22 pantoprazole 40 mg tablet,delayed 40 mg PO BID 03/16/22 03/31/22 release Previous Rx's Medication Instructions Recorded cyclobenzaprine 10 mg tablet 10 mg PO BEDTIME PRN muscle spasm 05/24/20 #3 tabs ibuprofen 400 mg tablet 400 mg PO Q6H 7 days #28 tabs 01/28/21 famotidine 20 mg tablet (Acid 20 mg PO BID #60 tabs 06/23/21 Heavy Coil Winder (famotidine)) medroxyprogesterone 150 mg/mL 150 mg IM Q12W #1 mL 07/13/21 intramuscular suspension (Depo-Provera) zbycrhhrzq-pilpmsfxctaqr-omdriuim 1 cap PO Q8H PRN pain #3 caps 08/09/21 50 mg-300 mg-40 mg capsule (Fioricet) dicyclomine 20 mg tablet 40 mg PO QID 30 days #240 tabs 03/16/22 gkpgbd-hnkefvkv-jmgvths 1 cap PO QID 30 days #120 caps 03/16/22 24,000-76,000-120,000 unit capsule,delayed rel (Creon) ondansetron HCl 4 mg tablet 4 mg PO Q8H #14 tabs 03/16/22 simethicone 180 mg capsule 180 mg PO QID 30 days #120 caps 03/16/22 propranolol 60 mg capsule,24 60 mg PO BEDTIME #30 caps 03/24/22 hr,extended release sumatriptan succinate 50 mg tablet 50 mg PO Q2-4H PRN migraine 03/24/22 headache #14 tabs metronidazole 500 mg tablet 500 mg PO BID 7 days #14 tabs 04/04/22 oxycodone 5 mg capsule 5 mg PO Q8H PRN pain #8 caps 04/23/22 Allergies Allergy/AdvReac Type Severity Reaction Status Date / Time No Known Allergies Allergy Verified 03/31/22 09:23 [No Known Allergies*] Review of Systems Constitutional: Constitutional: Reports no additional constitutional complaints ENT: Reports system reviewed and no additional complaints, except as documented Gastrointestinal: Gastrointestinal: Reports no additional gastrointestinal complaints Neurologic: Reports system reviewed and no additional complaints, except as documented PMFSH Past Medical History Medical History Asthma Fibromyalgia Hypertension IBS (irritable bowel syndrome) Migraines Simple ovarian cyst Surgical History Hx of tubal ligation Family History Family History Mother Diabetes HTN (hypertension) Asthma Brother Asthma Social History Social History Household Members: Children Alcohol intake: never Patient Tobacco Use Status: Never used Tobacco Advance Directives: No Current occupational status: employed 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 Sexual orientation: Straight/Heterosexual Gender identity: Female Physical Exam Vital Signs: Vital Signs: Last Vital Signs Temp 97.3 F 04/23/22 11:52 Pulse 66 04/23/22 16:00 Resp 17 04/23/22 16:00 BP 134/67 04/23/22 16:00 Pulse Ox 97 04/23/22 16:00 O2 Del Method 04/23/22 16:00 BMI result Body Mass Index 30.7 Const: General: well developed, alert and awake Nutritional Appearance: average body habitus Orientation/consciousness: patient oriented x3 Limitations: no limitations HEENT: Head: Yes normal to inspection General nose exam: Normal external nose present Face and sinus: Yes normal facial exam Mouth: Normal oral and palatal mucosa present Throat: Yes posterior oropharynx normal Neck: Neck: Yes normal visual inspection and Yes supple Chest: Chest palpation & inspection: normal inspection of the chest Resp: Effort & Inspection: normal respiratory effort Auscultation: clear to auscultation bilaterally Cardio: Jugular venous distension: no JVD Rate: regular rate Rhythm: regular rhythm GI: Inspection: Yes normal to inspection Palpation (GI): Soft to palpation Skin: General skin exam: no rashes or lesions noted Lesions: no lesions Neuro: General: patient oriented x3 and Normal light touch and pain sensation Cranial nerves: Yes CN's II-XII intact bilaterally, Yes Bilaterally intact EOM present and Yes Nystagmus not present Cognition (Neuro): normal cognition Gait exam (Neuro): Normal gait present Motor exam (neuro): 5/5 motor strength present throughout Course Reevaluation(s) Reevaluation #1: feels better head ct negative OK to d/c Time: 16:03 Medications Administered Discontinued Medications Generic Name Dose Route Start Last Admin Trade Name Freq PRN Reason Stop Dose Admin Oxycodone HCl 5 mg 04/23/22 12:23 04/23/22 12:28 Oxycodone Hcl Immed Release 5 Mg Tablet PO 04/23/22 12:24 5 mg ONCE ONE Administration Medical Decision Making Medical Decision Making MDM Narrative: presented with [place]IN[place] no fever/no neck stiffness gradual onset Differential Diagnosis Differential Diagnoses: The differential diagnosis associated with the presentation includes migraine/head bleed/meningitis Admission/Observation Consideration of admission/observation: Escalation of care including admission/observation considered Lab Data [facility] Lab Attestation statement: I reviewed the patient's lab results. 04/23/22 11:59 04/23/22 11:59 Labs: Lab Results 04/23/22 04/23/22 04/23/22 Range/Units 11:59 11:59 11:59 WBC 8.0 (4.8-10.8) X10*3/uL RBC 5.01 (4.20-5.50) X10*6/uL Hgb 14.4 (12.0-16.0) g/dl Hct 42.8 (37.0-47.0) % MCV 85.4 (80.0-98.0) fL MCH 28.7 (27.0-33.0) pg MCHC 33.6 (31.0-35.0) g/dl RDW 13.5 (11.0-16.0) % Plt Count 295 (160-400) X10*3/uL MPV 10.5 (9.4-12.3) fL Immature Gran % (Auto) 0.1 (0.0-0.4) % Neut % (Auto) 45.6 (45-73) % Lymph % (Auto) 45.9 H (20-40) % [place] % (Auto) 6.4 (2-11) % Eos % (Auto) 1.5 (0-4) % Baso % (Auto) 0.5 (0-2) % Lymph # (Auto) 3.7 (1.2-4.9) X10*3/uL [place] # (Auto) 0.5 (0.1-1.2) X10*3/uL Eos # (Auto) 0.1 (0.0-0.4) X10*3/uL Baso # (Auto) 0.0 (0.0-0.2) X10*3/uL Abs Immat Gran (auto) 0.01 (0.00-0.03) X10*3/uL Absolute Neuts (auto) 3.6 (2.0-8.3) x10*3/uL Absolute Nucleated RBC 0.000 (0.0-0.012) X10*3/uL Nucleated RBC % (auto) 0.0 (0.0-0.2) /100WBC ESR 4 (0-20) MM/HR Sodium 139 (135-145) mmol/L Potassium 4.0 (3.3-5.1) mmol/L Chloride 108 (96-108) mmol/L Carbon Dioxide 24 (22-29) mmol/L Anion Gap 11 L (12-20) BUN 13 (9-16) mg/dL Creatinine 1.11 (0.5-1.4) mg/dL Estim Creat Clear Calc 79.0 Estimated GFR 56 Random Glucose 88 (60-115) mg/dL Calcium 9.9 (8.4-10.2) mg/dL Magnesium 2.1 (1.6-2.6) mg/dL Total Bilirubin 0.5 (0.0-1.0) mg/dL AST 14 (5-31) U/L ALT 10 (0-31) U/L Alkaline Phosphatase 56 (39-117) U/L C-Reactive Protein < 0.10 (< or = 0.50) mg/dL Total Protein 7.5 (6.5-8.0) g/dL Albumin 4.4 (3.5-5.0) g/dL Beta HCG, Quant < 2 mIU/mL Influenza Type A (PCR) (Negative) Influenza Type B (PCR) (Negative) RSV RNA Qual (PCR) (Negative) SARS-CoV-2 RNA (RT-PCR) (Negative) 04/23/22 Range/Units 11:59 WBC (4.8-10.8) X10*3/uL RBC (4.20-5.50) X10*6/uL Hgb (12.0-16.0) g/dl Hct (37.0-47.0) % MCV (80.0-98.0) fL MCH (27.0-33.0) pg MCHC (31.0-35.0) g/dl RDW (11.0-16.0) % Plt Count (160-400) X10*3/uL MPV (9.4-12.3) fL Immature Gran % (Auto) (0.0-0.4) % Neut % (Auto) (45-73) % Lymph % (Auto) (20-40) % [place] % (Auto) (2-11) % Eos % (Auto) (0-4) % Baso % (Auto) (0-2) % Lymph # (Auto) (1.2-4.9) X10*3/uL [place] # (Auto) (0.1-1.2) X10*3/uL Eos # (Auto) (0.0-0.4) X10*3/uL Baso # (Auto) (0.0-0.2) X10*3/uL Abs Immat Gran (auto) (0.00-0.03) X10*3/uL Absolute Neuts (auto) (2.0-8.3) x10*3/uL Absolute Nucleated RBC (0.0-0.012) X10*3/uL Nucleated RBC % (auto) (0.0-0.2) /100WBC ESR (0-20) MM/HR Sodium (135-145) mmol/L Potassium (3.3-5.1) mmol/L Chloride (96-108) mmol/L Carbon Dioxide (22-29) mmol/L Anion Gap (12-20) BUN (9-16) mg/dL Creatinine (0.5-1.4) mg/dL Estim Creat Clear Calc Estimated GFR Random Glucose (60-115) mg/dL Calcium (8.4-10.2) mg/dL Magnesium (1.6-2.6) mg/dL Total Bilirubin (0.0-1.0) mg/dL AST (5-31) U/L ALT (0-31) U/L Alkaline Phosphatase (39-117) U/L C-Reactive Protein (< or = 0.50) mg/dL Total Protein (6.5-8.0) g/dL Albumin (3.5-5.0) g/dL Beta HCG, Quant mIU/mL Influenza Type A (PCR) NEGATIVE (Negative) Influenza Type B (PCR) NEGATIVE (Negative) RSV RNA Qual (PCR) NEGATIVE (Negative) SARS-CoV-2 RNA (RT-PCR) NEGATIVE (Negative) Radiology Impression Discussion of test interpretation with radiology: I have reviewed the radiologist's reading. Radiologist Impression: TECHNIQUE: Contiguous axial imaging was performed from the skull base to vertex without intravenous administration of contrast. This CT examination was performed using dose optimization techniques as appropriate, variously including the following: *Automated exposure control *Adjustment of mA and/or kV according to patient size (this includes techniques or standardized protocols for targeted exams where dose is matched to indication/reason for exam; i.e. extremities or head) *Use of iterative reconstruction technique DLP: 614 mGy-cm FINDINGS: There is no acute intra-axial, extra-axial bleed, masses or midline shift. There is no acute infarction evolution. There is no edema. The lateral ventricles are symmetrical in size and configuration without enlargement. The [place] to white matter differentiation is maintained normal. Bone windows reveal no calvarial abnormality. There is no scalp soft tissue abnormality. Bilateral paranasal sinuses and mastoid air cells are well-aerated. ? CT/CT head/brain wo IV con IMPRESSION: No acute intracranial process seen.? External Record Review External record reviewed: Inpatient record Discharge Plan Discharge Clinical Impression: Headache Patient Disposition: Home, Self-Care Instructions: Acute Headache (ED) Additional Instructions: follow up with Primary care return if worse Prescriptions: New oxycodone 5 mg capsule 5 mg PO Q8H PRN (Reason: pain) Qty: 8 0RF Rx Instructions: Partial Fill upon patient request. No Action famotidine [Acid Heavy Coil Winder (famotidine)] 20 mg tablet 20 mg PO BID Qty: 60 6RF metronidazole 500 mg tablet 500 mg PO BID 7 Days Qty: 14 0RF cyclobenzaprine 10 mg tablet 10 mg PO BEDTIME PRN (Reason: muscle spasm) Qty: 3 0RF ibuprofen 400 mg tablet 400 mg PO Q6H 7 Days Qty: 28 0RF zvxdnoedpc-gyuumgnzeszep-ydsm [Fioricet] 50-300-40 mg capsule 1 cap PO Q8H PRN (Reason: pain) Qty: 3 0RF albuterol sulfate [Proventil HFA] 90 mcg/actuation HFA aerosol inhaler 1 inh inhalation QID montelukast [Singulair] 10 mg tablet 10 mg PO BEDTIME loratadine [Allergy Relief (loratadine)] 10 mg tablet 10 mg PO DAILY Excedrin Migraine 250-250-65 mg tablet 1 tab PO Q4-6H PRN medroxyprogesterone [Depo-Provera] 150 mg/mL suspension 150 mg IM Q12W Qty: 1 5RF lisinopril 10 mg tablet 10 mg PO DAILY cholecalciferol (vitamin D3) [Vitamin D3] 50 mcg (2,000 unit) capsule 50 mcg PO DAILY pantoprazole 40 mg tablet,delayed release (DR/EC) 40 mg PO BID Creon 24,000-76,000 -120,000 unit capsule,delayed release(DR/EC) 1 cap PO QID 30 Days Qty: 120 6RF Rx Instructions: administer with meals and/or snacks simethicone 180 mg capsule 180 mg PO QID 30 Days Qty: 120 3RF Rx Instructions: after meals ondansetron HCl 4 mg tablet 4 mg PO Q8H Qty: 14 0RF dicyclomine 20 mg tablet 40 mg PO QID 30 Days Qty: 240 6RF propranolol 60 mg capsule,extended release 24 hr 60 mg PO BEDTIME Qty: 30 3RF sumatriptan succinate 50 mg tablet 50 mg PO Q2-4H PRN (Reason: migraine headache) Qty: 14 3RF Rx Instructions: do not exceed 4 doses per 24 hrs Referrals: Lu Estrada MD [Primary Care Provider] - 2 days Interventions: ED Discharge Assessment Last Done: 04/23/22 16:08 Discharge Date/Time: 04/23/22 16:10
[2022-04-23] MEDS: oxyCODONE HCl Immed Release 5 MG TABLET PO (12:28)
[2022-04-23 12:36] LABS: Alanine Aminotransferase 10 U/L (0-31); Albumin Level 4.4 g/dL (3.5-5.0); Alkaline Phosphatase 56 U/L (39-117); Anion Gap 11 (12-20); Aspartate Amino Transferase 14 U/L (5-31); Bilirubin Total 0.5 mg/dL (0.0-1.0); Blood Urea Nitrogen 13 mg/dL (9-16); C Reactive Protein < 0.10 mg/dL (< or = 0.50); Calcium 9.9 mg/dL (8.4-10.2); Carbon Dioxide 24 mmol/L (22-29); Chloride 108 mmol/L (96-108); Estimated Glomerular Filt Rate 56; Glucose Random 88 mg/dL (60-115); Magnesium 2.1 mg/dL (1.6-2.6); Sodium 139 mmol/L (135-145); Total Protein 7.5 g/dL (6.5-8.0)
[2022-04-23 12:42] LABS: Influenza A PCR NEGATIVE (Negative); Influenza B PCR NEGATIVE (Negative); Resp Syncy Virus RNA Qual PCR NEGATIVE (Negative); SARS COV2 PCR INHOUSE NEGATIVE (Negative)
[2022-04-23 12:44] LABS: Erythrocyte Sedimentation Rate 4 MM/HR (0-20)
--- NOTE | 2022-04-23 13:13 | PC.NURSE ---
Patient reports some relief from pain med but continues to have some pain present will CTM
[2022-04-23 13:23] LABS: HCG Quantitative < 2 mIU/mL
[2022-04-23 13:44] VITALS: BP 134/91; PULSE 72; RESP 18; O2SAT 98
--- NOTE | 2022-04-23 15:31 | PC.NURSE ---
pt resting comfortably on stretcher at this time, no apparent distress
[2022-04-23 16:00] VITALS: BP 134/67; PULSE 66; RESP 17; O2SAT 97
== END 2022-04-23 16:10 | disposition home or self-care (01) ==
PROVIDERS: Physician Assistant Medical; Emergency Provider Emergency Medicine; PCP Family Medicine
DX: R51.9 Headache, unspecified (principal); I10 Essential (primary) hypertension; Z79.82 Long term (current) use of aspirin; Z79.899 Other long term (current) drug therapy; Z20.822 Contact with and (suspected) exposure to COVID-19; Z20.828 Contact with and (suspected) exposure to other viral communicable diseases
CPT/HCPCS: 0241U; 70450; 80053; 83735; 84702; 85025; 85652; 86140; 99284

== ENCOUNTER 2022-04-28 13:52 | Outpatient (REF) | payer MEDICAID, SELFPAY ==
--- NOTE | ~2022-04-28 | MM_ITS ---
EXAMINATION: MM DIAGNOSTIC DIGITAL BREAST TOMOSYNTHESIS, BILATERAL US DIAGNOSTIC ULTRASOUND BREAST, LEFT CLINICAL INFORMATION: 36-year-old with chronic pain outer left breast. No palpable mass or discharge. The lifetime risk of breast cancer based on the Tyrer-Cuzick Model is 9%. COMPARISON: Bilateral mammography and left breast ultrasound 05/09/2018 (diagnostic baseline). TECHNIQUE: Digital breast tomosynthesis is performed in both the craniocaudal and mediolateral oblique views along with computer-aided detection (CAD). Synthesized 2D images are generated from the tomosynthesis. Additional right CC view is provided. Ultrasound left breast is targeted to the areas of clinical concern using grayscale imaging and color Doppler without and with harmonics. Patient is able to point areas of concern at time of imaging. FINDINGS: There are scattered areas of fibroglandular density (ACR BI-RADS breast composition Category b). There are no significant masses, abnormal calcifications, or other abnormalities. Parenchymal pattern is similar to prior studies. There is no developing density or architectural abnormality. No skin thickening or coarsening of the Gordon's ligaments. The axilla are unremarkable. Ultrasound demonstrates no cystic or solid mass or architectural abnormality. No focal duct ectasia. No skin thickening or edema tracking in soft tissue planes. Results are discussed with the patient at time of visit. MM/MM tomosynthesis diagnostic BI IMPRESSION: 1. No mammographic evidence of malignancy or inflammatory changes. 2. Unremarkable targeted left breast ultrasound. ASSESSMENT: BI-RADS 1: Negative RECOMMENDATION: 1. Patient's mastodynia should be based on the clinical impression. 2. Otherwise, routine annual screening mammography, beginning age 40, or earlier as clinical risk factors warrant. This patient's information was entered into a reminder system with a target due date for their next mammogram.
== END 2022-04-28 13:53 | disposition home or self-care (01) ==
LOC: HO.MAMMO 13:52
PROVIDERS: PCP Family Medicine; Visit Provider Family Medicine
DX: N64.4 Mastodynia (principal)
CPT/HCPCS: 76642; 77062; 77066

== ENCOUNTER → 2022-05-11 10:40 | Outpatient (BNVA) | payer MEDICAID, SELFPAY | PROVIDERS: PCP Family Medicine; Referring Provider Family Medicine; Visit Provider Internal Medicine Cardiovascular Disease | DX: Z13.89 Encounter for screening for other disorder (principal) ==

== ENCOUNTER → 2022-06-10 10:46 | Outpatient (BNVA) | payer MEDICAID, SELFPAY | PROVIDERS: PCP Family Medicine; Referring Provider Family Medicine; Visit Provider Internal Medicine Cardiovascular Disease | DX: R07.89 Other chest pain (principal); R00.2 Palpitations; I10 Essential (primary) hypertension; F41.1 Generalized anxiety disorder; M79.7 Fibromyalgia | CPT/HCPCS: 93005; 99202 ==

== ENCOUNTER 2022-06-11 20:31 | Emergency (ER) | payer MEDICAID, SELFPAY ==
--- NOTE | ~2022-06-11 | CT_ITS ---
EXAMINATION: CT ABDOMEN AND PELVIS WITHOUT CONTRAST CLINICAL INFORMATION: Left-sided abdominal pain. COMPARISON: 08/04/2012 TECHNIQUE: Multidetector volumetric imaging was performed from the superior aspect of the liver through the pubic symphysis. Sagittal and coronal reformatted images were obtained on the technologist's workstation. This CT examination was performed using dose optimization techniques as appropriate, variously including the following: *Automated exposure control *Adjustment of mA and/or kV according to patient size (this includes techniques or standardized protocols for targeted exams where dose is matched to indication/reason for exam; i.e. extremities or head) *Use of iterative reconstruction technique DLP: 754 mGy-cm FINDINGS: LUNG BASES: The visualized lung bases are unremarkable. LIVER, GALLBLADDER, AND BILIARY TREE: The liver is normal in size, shape, and attenuation. No focal hepatic lesion or biliary ductal dilatation is present. The gallbladder is contracted with no evidence of radiopaque gallstones, gallbladder wall thickening, or obvious pericholecystic inflammatory changes. PANCREAS: Unremarkable. SPLEEN: Unremarkable. ADRENAL GLANDS: Unremarkable. KIDNEYS AND URETERS: The kidneys are normal in size, shape, and attenuation. No hydronephrosis, hydroureter, or calculi seen. No perinephric stranding. BLADDER: Unremarkable. GASTROINTESTINAL TRACT: The stomach is unremarkable. Normal caliber of the small bowel. No obstruction. Normal appendix. No colonic wall thickening or acute inflammation. No free air or free fluid. ABDOMINAL WALL: No significant hernia is appreciated. LYMPH NODES: Normal. VASCULAR: Unremarkable. PELVIC VISCERA: The uterus and adnexa are unremarkable. OSSEOUS STRUCTURES: No acute or suspicious osseous abnormality. CT/CT abdomen pelvis wo IV con IMPRESSION: No acute findings of the abdomen or pelvis. No inflammatory changes. Fleischner guidelines were followed.
[2022-06-11 20:40] VITALS: BP 130/87; PULSE 103; RESP 18; TEMP 36.7; O2SAT 97; BMI 33.0
--- NOTE | 2022-06-11 20:40 | ED.GENADULT ---
HPI - General Adult General Chief complaint: Abdominal Pain <YONG Ocampo - Last Filed: 06/11/22 20:41> Stated complaint: lower left side abd pain <YONG Ocampo - Last Filed: 06/11/22 20:41> Time Seen by Provider: 06/11/22 21:24 <YONG Ocampo - Last Filed: 06/11/22 20:41> Source: patient <Robb Murray MD - Last Filed: 06/12/22 00:21> Mode of arrival: ambulatory <Robb Murray MD - Last Filed: 06/12/22 00:21> Limitations: no limitations <Robb Murray MD - Last Filed: 06/12/22 00:21> History of Present Illness HPI narrative: Patient history of asthma and IBS on dicyclomine complaining of diffuse abdominal pain since last week with chills and nausea also has some frequency and dysuria no hematuria no history of kidney stone pain is more on the left side as compared to other parts of the abdomen patient does have IBS but does not feel like same as IBS. Pain rated 2 bilateral flank area <Robb Murray MD - Last Filed: 06/12/22 00:21> Related Data Home medications: Home Medications Medication Instructions Recorded Confirmed albuterol sulfate 90 mcg/actuation 1 inh inhalation QID 01/15/20 06/10/22 aerosol inhaler (Proventil HFA) ntxowmt-ylsyjignhntxc-zekupmpi 250 1 tab PO Q4-6H PRN 01/15/20 06/10/22 mg-250 mg-65 mg tablet (Excedrin Migraine) loratadine 10 mg tablet (Allergy 10 mg PO DAILY 01/15/20 06/10/22 Relief (loratadine)) montelukast 10 mg tablet 10 mg PO BEDTIME 01/15/20 06/10/22 (Singulair) cholecalciferol (vitamin D3) 50 50 mcg PO DAILY 03/16/22 06/10/22 mcg (2,000 unit) capsule (Vitamin D3) lisinopril 10 mg tablet 10 mg PO DAILY 03/16/22 06/10/22 pantoprazole 40 mg tablet,delayed 40 mg PO BID 03/16/22 06/10/22 release rizatriptan 10 mg tablet 0 mg PO 06/10/22 06/10/22 Previous Rx's Medication Instructions Recorded cyclobenzaprine 10 mg tablet 10 mg PO BEDTIME PRN muscle spasm 05/24/20 #3 tabs ibuprofen 400 mg tablet 400 mg PO Q6H 7 days #28 tabs 01/28/21 famotidine 20 mg tablet (Acid 20 mg PO BID #60 tabs 06/23/21 Vehicle Service Agent (famotidine)) medroxyprogesterone 150 mg/mL 150 mg IM Q12W #1 mL 07/13/21 intramuscular suspension (Depo-Provera) qesdemyjwb-tqwurpaelhqyy-xyetgdzz 1 cap PO Q8H PRN pain #3 caps 08/09/21 50 mg-300 mg-40 mg capsule (Fioricet) dicyclomine 20 mg tablet 40 mg PO QID 30 days #240 tabs 03/16/22 yvynww-lxrwzbak-nlfxtvu 1 cap PO QID 30 days #120 caps 03/16/22 24,000-76,000-120,000 unit capsule,delayed rel (Creon) ondansetron HCl 4 mg tablet 4 mg PO Q8H #14 tabs 03/16/22 simethicone 180 mg capsule 180 mg PO QID 30 days #120 caps 03/16/22 sumatriptan succinate 50 mg tablet 50 mg PO Q2-4H PRN migraine 03/24/22 headache #14 tabs propranolol 60 mg capsule,24 60 mg PO BEDTIME #90 caps 05/24/22 hr,extended release tramadol 50 mg tablet 50 mg PO Q6H PRN pain #20 tabs 06/11/22 <YONG Ocampo - Last Filed: 06/11/22 20:41> Allergies/adverse reactions: Allergies Allergy/AdvReac Type Severity Reaction Status Date / Time No Known Allergies Allergy Verified 06/11/22 20:40 [No Known Allergies*] <YONG Ocampo - Last Filed: 06/11/22 20:41> Review of Systems Review of Systems: Yes all other systems are reviewed and are negative <Robb Murray MD - Last Filed: 06/12/22 00:21> [facility] Past Medical History Medical History: Medical History Asthma Fibromyalgia Hypertension IBS (irritable bowel syndrome) Migraines Simple ovarian cyst <YONG Ocampo - Last Filed: 06/11/22 20:41> Surgical History: Surgical History Hx of tubal ligation <YONG Ocampo - Last Filed: 06/11/22 20:41> Family History Family History: Family History Mother Diabetes HTN (hypertension) Asthma Brother Asthma <YONG Ocampo - Last Filed: 06/11/22 20:41> Social History Social History: Social History Household Members: Children Alcohol intake: never Patient Tobacco Use Status: Never used Tobacco Advance Directives: No Advance Directives Information Provided: No Current occupational status: employed 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 Sexual orientation: Straight/Heterosexual Gender identity: Female <YONG Ocampo - Last Filed: 06/11/22 20:41> Physical Exam ED Vital Signs: Vital Signs - 24 hr 06/11/22 20:40 06/11/22 23:48 06/12/22 00:16 Temperature 98.0 F 98.4 F Pulse Rate 103 H 74 75 Respiratory Rate 18 18 12 Blood Pressure 130/87 128/87 136/80 Pulse Oximetry 97 98 98 Oxygen Delivery Method Room Air Room Air Room Air BMI result Body Mass Index 33.0 <YONG Ocampo - Last Filed: 06/11/22 20:41> Vital Signs - 24 hr 06/11/22 20:40 06/11/22 23:48 06/12/22 00:16 Temperature 98.0 F 98.4 F Pulse Rate 103 H 74 75 Respiratory Rate 18 18 12 Blood Pressure 130/87 128/87 136/80 Pulse Oximetry 97 98 98 Oxygen Delivery Method Room Air Room Air Room Air BMI result Body Mass Index 33.0 <Robb Murray MD - Last Filed: 06/12/22 00:21> Appearance: Alert. Oriented X3. No acute distress. ENT: Pharynx normal. Oral Mucosa moist Neck: Normal inspection. Neck supple. CVS: Normal heart rate and rhythm. Pulses normal. Respiratory: No respiratory distress. Equal air entry bilateral, no wheezing/rales/rhonchi Abdomen: Soft , diffuse tenderness L>R no rebound tenderness or guarding. Bowel sounds are present, no mass palpable, no CVA tenderness Skin: Skin warm and dry. Normal skin color. Normal skin turgor. Extremities: No lower extremity edema. No calf tenderness Neuro: Oriented X 3. No motor deficit. <Robb Murray MD - Last Filed: 06/12/22 00:21> Course Course Course Narrative: RME performed by Jami Nix PA-C. Patient is a 37 year old female presenting to the emergency department with LUQ abdominal pain. Labs ordered. <YONG Ocampo - Last Filed: 06/11/22 20:41> Medications Administered Discontinued Medications Generic Name Dose Route Start Last Admin Trade Name Freq PRN Reason Stop Dose Admin Tramadol HCl 50 mg 06/11/22 23:53 06/12/22 00:16 Tramadol Hcl 50 Mg Tablet PO 06/11/22 23:54 50 mg ONCE ONE Administration <YONG Ocampo - Last Filed: 06/11/22 20:41> Medications Administered Discontinued Medications Generic Name Dose Route Start Last Admin Trade Name Freq PRN Reason Stop Dose Admin Tramadol HCl 50 mg 06/11/22 23:53 06/12/22 00:16 Tramadol Hcl 50 Mg Tablet PO 06/11/22 23:54 50 mg ONCE ONE Administration <Robb Murray MD - Last Filed: 06/12/22 00:21> Medical Decision Making Medical Decision Making [facility] Narrative: Patient has stable labs CT scan abdomen is negative for any acute pathology likely pain is from IBS med discharge patient home advised to continue dicyclomine take tramadol for severe pain <Robb Murray MD - Last Filed: 06/12/22 00:21> Lab Data [facility] Lab Attestation statement: I reviewed the patient's lab results. <Robb Murray MD - Last Filed: 06/12/22 00:21> Result Diagrams: 06/11/22 20:51 06/11/22 20:51 <YONG Ocampo - Last Filed: 06/11/22 20:41> Labs: Lab Results 03/06/11/22 06/11/22 Range/Units 20:51 20:51 20:51 WBC 6.5 (4.8-10.8) X10*3/uL RBC 4.86 (4.20-5.50) X10*6/uL Hgb 13.8 (12.0-16.0) g/dl Hct 41.3 (37.0-47.0) % MCV 85.0 (80.0-98.0) fL MCH 28.4 (27.0-33.0) pg MCHC 33.4 (31.0-35.0) g/dl RDW 13.4 (11.0-16.0) % Plt Count 290 (160-400) X10*3/uL MPV 10.3 (9.4-12.3) fL Immature Gran % (Auto) 0.3 (0.0-0.4) % Neut % (Auto) 54.0 (45-73) % Lymph % (Auto) 38.2 (20-40) % [place] % (Auto) 5.8 (2-11) % Eos % (Auto) 1.1 (0-4) % Baso % (Auto) 0.6 (0-2) % Lymph # (Auto) 2.5 (1.2-4.9) X10*3/uL [place] # (Auto) 0.4 (0.1-1.2) X10*3/uL Eos # (Auto) 0.1 (0.0-0.4) X10*3/uL Baso # (Auto) 0.0 (0.0-0.2) X10*3/uL Abs Immat Gran (auto) 0.02 (0.00-0.03) X10*3/uL Absolute Neuts (auto) 3.5 (2.0-8.3) x10*3/uL Absolute Nucleated RBC 0.000 (0.0-0.012) X10*3/uL Nucleated RBC % (auto) 0.0 (0.0-0.2) /100WBC Sodium 139 (135-145) mmol/L Potassium 3.9 (3.3-5.1) mmol/L Chloride 107 (96-108) mmol/L Carbon Dioxide 22 (22-29) mmol/L Anion Gap 14 (12-20) BUN 15 (9-16) mg/dL Creatinine 0.89 (0.5-1.4) mg/dL Estim Creat Clear Calc 101.2 Estimated GFR > 60 Random Glucose 107 (60-115) mg/dL Calcium 9.5 (8.4-10.2) mg/dL Magnesium 2.0 (1.6-2.6) mg/dL Total Bilirubin 0.7 (0.0-1.0) mg/dL AST 16 (5-31) U/L ALT 17 (0-31) U/L Alkaline Phosphatase 58 (39-117) U/L Total Protein 7.6 (6.5-8.0) g/dL Albumin 4.5 (3.5-5.0) g/dL Beta HCG, Quant < 2 mIU/mL Urine Color Urine Appearance Urine pH (5.0-9.0) Ur Specific [place] (1.005-1.025) Urine Protein (Neg-Trace) mg/dL Urine Glucose (UA) (Negative) mg/dL Urine Ketones (Negative) mg/dL Urine Blood (Negative) Urine Nitrite (Negative) Ur Leukocyte Esterase (Negative) COVID-19 (ARAMIS) Negative (Negative) COVID-19 Clin Com See Note 06/11/22 Range/Units 20:51 WBC (4.8-10.8) X10*3/uL RBC (4.20-5.50) X10*6/uL Hgb (12.0-16.0) g/dl Hct (37.0-47.0) % MCV (80.0-98.0) fL MCH (27.0-33.0) pg MCHC (31.0-35.0) g/dl RDW (11.0-16.0) % Plt Count (160-400) X10*3/uL MPV (9.4-12.3) fL Immature Gran % (Auto) (0.0-0.4) % Neut % (Auto) (45-73) % Lymph % (Auto) (20-40) % [place] % (Auto) (2-11) % Eos % (Auto) (0-4) % Baso % (Auto) (0-2) % Lymph # (Auto) (1.2-4.9) X10*3/uL [place] # (Auto) (0.1-1.2) X10*3/uL Eos # (Auto) (0.0-0.4) X10*3/uL Baso # (Auto) (0.0-0.2) X10*3/uL Abs Immat Gran (auto) (0.00-0.03) X10*3/uL Absolute Neuts (auto) (2.0-8.3) x10*3/uL Absolute Nucleated RBC (0.0-0.012) X10*3/uL Nucleated RBC % (auto) (0.0-0.2) /100WBC Sodium (135-145) mmol/L Potassium (3.3-5.1) mmol/L Chloride (96-108) mmol/L Carbon Dioxide (22-29) mmol/L Anion Gap (12-20) BUN (9-16) mg/dL Creatinine (0.5-1.4) mg/dL Estim Creat Clear Calc Estimated GFR Random Glucose (60-115) mg/dL Calcium (8.4-10.2) mg/dL Magnesium (1.6-2.6) mg/dL Total Bilirubin (0.0-1.0) mg/dL AST (5-31) U/L ALT (0-31) U/L Alkaline Phosphatase (39-117) U/L Total Protein (6.5-8.0) g/dL Albumin (3.5-5.0) g/dL Beta HCG, Quant mIU/mL Urine Color Yellow Urine Appearance Clear Urine pH 6.0 (5.0-9.0) Ur Specific [place] >= 1.030 H (1.005-1.025) Urine Protein Negative (Neg-Trace) mg/dL Urine Glucose (UA) Negative (Negative) mg/dL Urine Ketones Negative (Negative) mg/dL Urine Blood Negative (Negative) Urine Nitrite Negative (Negative) Ur Leukocyte Esterase Negative (Negative) COVID-19 (ARAMIS) (Negative) COVID-19 Clin Com <YONG Ocampo - Last Filed: 06/11/22 20:41> Lab Results 06/11/22 06/11/22 06/11/22 Range/Units 20:51 20:51 20:51 WBC 6.5 (4.8-10.8) X10*3/uL RBC 4.86 (4.20-5.50) X10*6/uL Hgb 13.8 (12.0-16.0) g/dl Hct 41.3 (37.0-47.0) % MCV 85.0 (80.0-98.0) fL MCH 28.4 (27.0-33.0) pg MCHC 33.4 (31.0-35.0) g/dl RDW 13.4 (11.0-16.0) % Plt Count 290 (160-400) X10*3/uL MPV 10.3 (9.4-12.3) fL Immature Gran % (Auto) 0.3 (0.0-0.4) % Neut % (Auto) 54.0 (45-73) % Lymph % (Auto) 38.2 (20-40) % [place] % (Auto) 5.8 (2-11) % Eos % (Auto) 1.1 (0-4) % Baso % (Auto) 0.6 (0-2) % Lymph # (Auto) 2.5 (1.2-4.9) X10*3/uL [place] # (Auto) 0.4 (0.1-1.2) X10*3/uL Eos # (Auto) 0.1 (0.0-0.4) X10*3/uL Baso # (Auto) 0.0 (0.0-0.2) X10*3/uL Abs Immat Gran (auto) 0.02 (0.00-0.03) X10*3/uL Absolute Neuts (auto) 3.5 (2.0-8.3) x10*3/uL Absolute Nucleated RBC 0.000 (0.0-0.012) X10*3/uL Nucleated RBC % (auto) 0.0 (0.0-0.2) /100WBC Sodium 139 (135-145) mmol/L Potassium 3.9 (3.3-5.1) mmol/L Chloride 107 (96-108) mmol/L Carbon Dioxide 22 (22-29) mmol/L Anion Gap 14 (12-20) BUN 15 (9-16) mg/dL Creatinine 0.89 (0.5-1.4) mg/dL Estim Creat Clear Calc 101.2 Estimated GFR > 60 Random Glucose 107 (60-115) mg/dL Calcium 9.5 (8.4-10.2) mg/dL Magnesium 2.0 (1.6-2.6) mg/dL Total Bilirubin 0.7 (0.0-1.0) mg/dL AST 16 (5-31) U/L ALT 17 (0-31) U/L Alkaline Phosphatase 58 (39-117) U/L Total Protein 7.6 (6.5-8.0) g/dL Albumin 4.5 (3.5-5.0) g/dL Beta HCG, Quant < 2 mIU/mL Urine Color Urine Appearance Urine pH (5.0-9.0) Ur Specific [place] (1.005-1.025) Urine Protein (Neg-Trace) mg/dL Urine Glucose (UA) (Negative) mg/dL Urine Ketones (Negative) mg/dL Urine Blood (Negative) Urine Nitrite (Negative) Ur Leukocyte Esterase (Negative) COVID-19 (ARAMIS) Negative (Negative) COVID-19 Clin Com See Note 06/11/22 Range/Units 20:51 WBC (4.8-10.8) X10*3/uL RBC (4.20-5.50) X10*6/uL Hgb (12.0-16.0) g/dl Hct (37.0-47.0) % MCV (80.0-98.0) fL MCH (27.0-33.0) pg MCHC (31.0-35.0) g/dl RDW (11.0-16.0) % Plt Count (160-400) X10*3/uL MPV (9.4-12.3) fL Immature Gran % (Auto) (0.0-0.4) % Neut % (Auto) (45-73) % Lymph % (Auto) (20-40) % [place] % (Auto) (2-11) % Eos % (Auto) (0-4) % Baso % (Auto) (0-2) % Lymph # (Auto) (1.2-4.9) X10*3/uL [place] # (Auto) (0.1-1.2) X10*3/uL Eos # (Auto) (0.0-0.4) X10*3/uL Baso # (Auto) (0.0-0.2) X10*3/uL Abs Immat Gran (auto) (0.00-0.03) X10*3/uL Absolute Neuts (auto) (2.0-8.3) x10*3/uL Absolute Nucleated RBC (0.0-0.012) X10*3/uL Nucleated RBC % (auto) (0.0-0.2) /100WBC Sodium (135-145) mmol/L Potassium (3.3-5.1) mmol/L Chloride (96-108) mmol/L Carbon Dioxide (22-29) mmol/L Anion Gap (12-20) BUN (9-16) mg/dL Creatinine (0.5-1.4) mg/dL Estim Creat Clear Calc Estimated GFR Random Glucose (60-115) mg/dL Calcium (8.4-10.2) mg/dL Magnesium (1.6-2.6) mg/dL Total Bilirubin (0.0-1.0) mg/dL AST (5-31) U/L ALT (0-31) U/L Alkaline Phosphatase (39-117) U/L Total Protein (6.5-8.0) g/dL Albumin (3.5-5.0) g/dL Beta HCG, Quant mIU/mL Urine Color Yellow Urine Appearance Clear Urine pH 6.0 (5.0-9.0) Ur Specific [place] >= 1.030 H (1.005-1.025) Urine Protein Negative (Neg-Trace) mg/dL Urine Glucose (UA) Negative (Negative) mg/dL Urine Ketones Negative (Negative) mg/dL Urine Blood Negative (Negative) Urine Nitrite Negative (Negative) Ur Leukocyte Esterase Negative (Negative) COVID-19 (ARAMIS) (Negative) COVID-19 Clin Com <Robb Murray MD - Last Filed: 06/12/22 00:21> Discharge Plan Discharge Clinical Impression: Irritable bowel syndrome <YONG Ocampo - Last Filed: 06/11/22 20:41> Patient Disposition: Home, Self-Care <YONG Ocampo - Last Filed: 06/11/22 20:41> Instructions: Irritable Bowel Syndrome (ED) <YONG Ocampo - Last Filed: 06/11/22 20:41> Additional Instructions: Drink plenty of fluids Continue dicyclomine 1 tablet every 8 hours as needed tramadol for severe pain Follow with PCP <YONG Ocampo - Last Filed: 06/11/22 20:41> Prescriptions: New tramadol 50 mg tablet 50 mg PO Q6H PRN (Reason: pain) Qty: 20 0RF No Action famotidine [Acid Vehicle Service Agent (famotidine)] 20 mg tablet 20 mg PO BID Qty: 60 6RF propranolol 60 mg capsule,extended release 24 hr 60 mg PO BEDTIME Qty: 90 1RF cyclobenzaprine 10 mg tablet 10 mg PO BEDTIME PRN (Reason: muscle spasm) Qty: 3 0RF ibuprofen 400 mg tablet 400 mg PO Q6H 7 Days Qty: 28 0RF ecoodlpqxj-jxdsrxcrldsfv-aago [Fioricet] 50-300-40 mg capsule 1 cap PO Q8H PRN (Reason: pain) Qty: 3 0RF albuterol sulfate [Proventil HFA] 90 mcg/actuation HFA aerosol inhaler 1 inh inhalation QID montelukast [Singulair] 10 mg tablet 10 mg PO BEDTIME loratadine [Allergy Relief (loratadine)] 10 mg tablet 10 mg PO DAILY Excedrin Migraine 250-250-65 mg tablet 1 tab PO Q4-6H PRN medroxyprogesterone [Depo-Provera] 150 mg/mL suspension 150 mg IM Q12W Qty: 1 5RF lisinopril 10 mg tablet 10 mg PO DAILY cholecalciferol (vitamin D3) [Vitamin D3] 50 mcg (2,000 unit) capsule 50 mcg PO DAILY pantoprazole 40 mg tablet,delayed release (DR/EC) 40 mg PO BID Creon 24,000-76,000 -120,000 unit capsule,delayed release(DR/EC) 1 cap PO QID 30 Days Qty: 120 6RF Rx Instructions: administer with meals and/or snacks simethicone 180 mg capsule 180 mg PO QID 30 Days Qty: 120 3RF Rx Instructions: after meals ondansetron HCl 4 mg tablet 4 mg PO Q8H Qty: 14 0RF dicyclomine 20 mg tablet 40 mg PO QID 30 Days Qty: 240 6RF sumatriptan succinate 50 mg tablet 50 mg PO Q2-4H PRN (Reason: migraine headache) Qty: 14 3RF Rx Instructions: do not exceed 4 doses per 24 hrs rizatriptan 10 mg tablet 0 mg PO <YONG Ocampo - Last Filed: 06/11/22 20:41> Discharge Date/Time: 06/12/22 00:19 <YONG Ocampo - Last Filed: 06/11/22 20:41>
[2022-06-11 20:56] LABS: MANUAL DIFF FLAG NO
[2022-06-11 21:01] LABS: Basophils Percent Auto 0.6 % (0-2); Eosinophils Absolute Auto 0.1 X10*3/uL (0.0-0.4); Eosinophils Percent Auto 1.1 % (0-4); Hematocrit 41.3 % (37.0-47.0); Hemoglobin 13.8 g/dl (12.0-16.0); Imm Gran Abs Auto 0.02 X10*3/uL (0.00-0.03); Imm Gran Pct Auto 0.3 % (0.0-0.4); Lymphocytes Absolute Auto 2.5 X10*3/uL (1.2-4.9); Lymphocytes Percent Auto 38.2 % (20-40); Mean Corpuscular HGB Conc 33.4 g/dl (31.0-35.0); Mean Corpuscular Hemoglobin 28.4 pg (27.0-33.0); Mean Platelet Volume 10.3 fL (9.4-12.3); Monocytes Absolute Auto 0.4 X10*3/uL (0.1-1.2); Monocytes Percent Auto 5.8 % (2-11); Neutrophils Absolute Auto 3.5 x10*3/uL (2.0-8.3); Platelet Count 290 X10*3/uL (160-400); Red Blood Count 4.86 X10*6/uL (4.20-5.50); Red Cell Distribution Width 13.4 % (11.0-16.0); White Blood Count 6.5 X10*3/uL (4.8-10.8)
[2022-06-11 21:03] LABS: Appearance Urine Clear; Color Urine Yellow; Glucose Urine UA Negative (Negative); Leukocyte Esterase Urine Negative (Negative); Nitrite Urine Negative (Negative); Specific Gravity - Urine >= 1.030 (1.005-1.025); Urine Blood Negative (Negative); Urine Ketones Negative (Negative); Urine Protein Negative (Neg-Trace)
[2022-06-11 21:33] LABS: COVID-19 Test Negative (Negative); IDNOW Serial# BCCEAD1C
[2022-06-11 21:47] LABS: Alanine Aminotransferase 17 U/L (0-31); Albumin Level 4.5 g/dL (3.5-5.0); Alkaline Phosphatase 58 U/L (39-117); Anion Gap 14 (12-20); Aspartate Amino Transferase 16 U/L (5-31); Bilirubin Total 0.7 mg/dL (0.0-1.0); Blood Urea Nitrogen 15 mg/dL (9-16); Calcium 9.5 mg/dL (8.4-10.2); Carbon Dioxide 22 mmol/L (22-29); Chloride 107 mmol/L (96-108); Creatinine Clr Calc Pharmacy 101.2; Estimated Glomerular Filt Rate > 60; Glucose Random 107 mg/dL (60-115); HCG Quantitative < 2 mIU/mL; Potassium 3.9 mmol/L (3.3-5.1); Sodium 139 mmol/L (135-145); Total Protein 7.6 g/dL (6.5-8.0)
[2022-06-11 23:48] VITALS: BP 128/87; PULSE 74; RESP 18; O2SAT 98
[2022-06-12 00:16] VITALS: BP 136/80; PULSE 75; RESP 12; TEMP 36.9; O2SAT 98
[2022-06-12] MEDS: traMADoL HCL 50 MG TABLET PO (00:16)
--- NOTE | 2022-06-12 00:19 | PC.NURSE ---
Pt aox3 resting at the bedside in no apparent distress. Discharge instructions reviewed with pt. Pt verbalizes understanding.
== END 2022-06-12 00:19 | disposition home or self-care (01) ==
PROVIDERS: Physician Assistant Medical; Emergency Provider Internal Medicine; PCP Family Medicine
DX: K58.9 Irritable bowel syndrome, unspecified (principal); R10.32 Left lower quadrant pain; Z20.822 Contact with and (suspected) exposure to COVID-19; I10 Essential (primary) hypertension; Z79.899 Other long term (current) drug therapy
CPT/HCPCS: 74176; 80053; 81003; 83735; 84702; 85025; 87635; 99284

== ENCOUNTER → 2022-06-13 15:31 | Outpatient (BNVA) | payer MEDICAID, SELFPAY | PROVIDERS: PCP Family Medicine; Visit Provider Internal Medicine Gastroenterology | DX: J03.91 Acute recurrent tonsillitis, unspecified (principal); R10.12 Left upper quadrant pain | CPT/HCPCS: 99212 ==

== ENCOUNTER → 2022-06-21 09:07 | Outpatient (REF) | payer MEDICAID, SELFPAY ==
--- NOTE | 2022-06-21 09:12 | CA_ITS ---
Acquisition Time: 2022-06-21 10:05:52 Total Exercise Time: 00:07:01 Test Indications: CP Medications: SEE H Protocol: GIGI Max HR: 176 BPM 95% of Pred: 185 BPM Max BP: 172/080 mmHG Max Work Load: 8.5 METS Exercise stress test with exercise 7 min 1 sec of Gigi protocol, achieving 93% MPHR, with fatigue and request to stop, without anginal symptoms, without arrythmia, with normotensive response to injection, without EKG changes meeting criteria for ischemia. Test reviewed with Dr Barry. Referred By: Gerson Graves Overread By: MATHIEU SOLORIO
--- NOTE | 2022-06-21 09:12 | CA_ITS ---
Transthoracic Echocardiogram Patient (Last, First, Middle): Shruti Winters, Gender: Female Date of : 1985 Age: 37 Procedure Date: 06/21/2022 Procedure Type: Transthoracic Echocardiogram Location: OP Height: 167.64 cm Weight: 93.9 kg BSA: 2.03 m2 Heart Rate: bpm BP: 140 / 96 mmHg Lard Refiner: HALIE Referring MD: Gerson Graves MD Symptoms: I10 - Essential (primary) hypertension Study Quality: Fair ECG Rhythm: Sinus Conclusions: - The left ventricular systolic function is normal. The calculated ejection fraction is 60% by biplane method. - LV peak GLS -19.7%. - There is mild mitral valve regurgitation. - There is mild tricuspid valve regurgitation. Findings Left Ventricle Normal left ventricular cavity size. There is normal left ventricular wall thickness. The left ventricular systolic function is normal. The calculated ejection fraction is 60% by biplane method. There is no evidence of regional wall motion abnormalities. Diastolic function is normal for age. LV peak GLS -19.7%. Right Ventricle Normal right ventricular cavity size and systolic function. Atria Both atria are normal in size. Aortic Valve There is a normal trileaflet aortic valve. There is no aortic valve stenosis. There is no aortic valve regurgitation. Mitral Valve The mitral valve appears normal. There is mild mitral valve regurgitation. There is no mitral valve stenosis. Pulmonic Valve The pulmonic valve is likely normal. Tricuspid Valve Normal tricuspid valve structure. There is mild tricuspid valve regurgitation. There is no evidence of pulmonary hypertension. Great Vessels The asc aorta and aortic arch are normal in size. Venous The inferior vena cava is normal in size and collapses greater than 50% with inspiration. Pericardium/Pleural There is no evidence of pericardial effusion. Prior Study Comparison No prior study available for comparison. Measurements 2D Linear Measurements IVSd: 0.85 0.6-0.9/0.6-1.0 cm LVIDd: 4.61 3.9-5.3/4.2-5.9 cm LVIDd Index: 2.27 2.4-3.2/2.2-3.1 cm/m2 LVIDs: 3.20 2.0-3.6 cm LVPWd: 0.96 0.7-1.1 cm LA Diam: 3.40 2.7-3.8/3.0-4.0 cm LAIDs Index: 1.67 1.5-2.3 cm/m2 LV Mass: 172.92 67-162/88-224 g LV Mass Index: 85.18 43-95/49-115 g/m2 LVOT Diam: 2.10 3.0+(-)1.3 cm 2D Systolic Function EF 4C: 59.50 >55% EF 2C: 60.70 >55% EF BiP: 59.50 >55% Mitral Valve MV Pk E: 0.87 MV PK A: 0.53 MV Decel Time: 209.00 E/A: 1.60 E'Lateral: 14.10 E'Medial: 10.90 E/E' Med: 7.90 E/E' Lat: 6.10 PHT: 61.00 MVA PHT: 3.61 Decel Cross: 4.14 Aortic Valve AoV Pk Flavio: 1.38 AoV Mn Flavio: 0.98 AoV VTI: 0.30 AoV Pk Grad: 8.00 Aov Mn Grad: 4.00 MOON Cont.VTI: 2.70 LVOT LVOT Pk Flavio: 1.16 LVOT Mn Flavio: 0.77 LVOT VTI: 0.23 LVOT Pk Grad: 5.00 LVOT Mn Grad: 3.00 LVOT Diam: 2.10 LVOT Area: 3.46 Diastolic Function MV Pk E: 0.87 MV Pk A: 0.53 E/A: 1.60 E'Medial: 10.90 E/E' Med: 7.90 E' Laterial: 14.10 E/E' Lat: 6.10 Right Ventricle TAPSE (mm): 21.30 TVS' Flavio: 12.20 Tricuspid Valve TR Pk Flavio: 2.30 TR Pk Grad: 21.00 Great Vessels Aorta Sinus of Valsalva: 2.99 2.0-3.[address] Ridge: 2.31 1.7-3.4 cm Ao Asc: 3.00 2.1-3.4 cm Ao Arch: 2.70 Updated in Other Vendor System with Status of Final Gregg Barry MD electronically signed on 06/22/2022 10:44:14 AM with status of Final
--- NOTE | 2022-06-21 09:12 | HM_ITS ---
* Total monitoring time about 2 days. * Underlying rhythm is sinus. Average ventricular rate 84/Min. Range 62 to 180/Min. * About 12% the time, rate > 100/Min. * Extremely rare PACs and PVCs with minimal burden. * No significant pauses or AV blocks. * Patient markers used in association with sinus rhythm and sinus tachycardia. * Chest pain in diary associated with sinus rhythm. MTDD
== END ==
LOC: HO.CARD 09:07
PROVIDERS: PCP Family Medicine; Visit Provider Internal Medicine Cardiovascular Disease
DX: R07.89 Other chest pain (principal); R00.2 Palpitations; I10 Essential (primary) hypertension
CPT/HCPCS: 93017; 93225; 93306; 93356

== ENCOUNTER 2022-06-29 11:38 | Outpatient (REF) | payer MEDICAID, SELFPAY ==
[2022-06-30 03:18] LABS: CT PCR NOT DETECTED (Not Detect.); NG PCR NOT DETECTED (Not Detect.)
[2022-06-30 10:02] LABS: BV Int Neg Control Negative (Negative); BV Int Pos Control Positive (Positive)
== END 2022-06-29 11:39 | disposition home or self-care (01) ==
LOC: HO.LNP 11:38
PROVIDERS: PCP Family Medicine; Visit Provider Advanced Practice Midwife
DX: N76.0 Acute vaginitis (principal); B96.89 Other specified bacterial agents as the cause of diseases classified elsewhere; A74.9 Chlamydial infection, unspecified
CPT/HCPCS: 0353U; 87480; 87510; 87660; 99212

== ENCOUNTER → 2022-07-06 11:35 | Outpatient (BNVA) | payer MEDICAID, SELFPAY | PROVIDERS: PCP Family Medicine; Visit Provider Advanced Practice Midwife | DX: Z30.42 Encounter for surveillance of injectable contraceptive (principal) | CPT/HCPCS: 96372; 99211 ==

== ENCOUNTER 2022-07-07 12:16 | Day surgery (SDC) | payer MEDICAID, SELFPAY ==
[2022-06-29 12:21] VITALS: BP 137/92; PULSE 73; RESP 16; O2SAT 99; BMI 33.5
--- NOTE | 2022-07-06 12:07 | P.CONAN_ITS ---
Documented by User: Tiffany Ricks NP 07/06/22 12:12 HPI - Anesthesia Eval Consult details Narrative: 37yo F for Upper Endoscopy Large tonsils eval'd by Dr Truong. Plan for GA in OR. Cardiac w/u 05/2022 all negative PMFSH Active Problems Active Problems: All Active Problems (Updated 06/29/22 @ 12:09 by Drea Burden CNM) Upper abdominal pain (Acute) Acute recurrent tonsillitis (Acute) Mastalgia (Acute) Localized swelling on right hand (Acute) Left sided abdominal pain (Acute) Rotator cuff tendonitis (Acute) Myofascial neck pain (Acute) Bacterial vaginosis (Acute) Chlamydia infection (Acute) Surveillance for Depo-Provera contraception (Acute) Potential exposure to STD (Acute) Hx of abnormal cervical Pap smear (Acute) Menorrhagia (Acute) Hx of tubal ligation (Acute) Depot contraception (Acute) Hemorrhoids (Acute) Numbness and tingling of right upper and lower extremity (Acute) Ganglion cyst of dorsum of right wrist (Acute) Dyspareunia (Acute) Simple ovarian cyst (Acute) Pelvic pain in female (Acute) Encounter to discuss test results (Acute) Mass of joint of right wrist (Acute) Hypertension (Acute) IBS (irritable bowel syndrome) (Acute) Fibromyalgia (Acute) Asthma (Acute) Migraines (Acute) Wrist pain, right (Acute) Abdominal pain (Acute) Right ovarian cyst (Acute) Abdominal cramping (Acute) Encounter to discuss test results (Acute) Anemia (Acute) Surveillance for Depo-Provera contraception (Acute) Irregular menses (Acute) Heavy menstrual bleeding (Acute) GERD (gastroesophageal reflux disease) (Acute) Acromioclavicular joint separation (Acute) Nephrolithiasis (Acute) Left knee pain (Acute) Allergic rhinitis (Acute) Depression with anxiety (Acute) Ovarian cyst (Acute) Past Medical History Medical History Asthma Fibromyalgia Hypertension IBS (irritable bowel syndrome) Migraines Simple ovarian cyst Family History Family History Mother Diabetes HTN (hypertension) Asthma Brother Asthma Surgical History Surgical History Hx of tubal ligation Social History Social History (Updated 06/29/22 @ 12:52 by Shefali Garrison RN) Household Members: Children Are you a primary intensive care nurse to a significant other at home: No (children 15,10,8 Mother will assist with care) Do you presently have visiting nurse or other home services: No Alcohol intake: never Patient Tobacco Use Status: Never used Tobacco Use of substances other than those prescribed or required for medical reasons: No Have you been hit, kicked, punched, or otherwise hurt by someone within the past year? 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 Sexual orientation: Straight/Heterosexual Gender identity: Female Meds Allergies Allergy/AdvReac Type Severity Reaction Status Date / Time No Known Allergies Allergy Verified 06/29/22 12:19 [No Known Allergies*] Home Medications Medication Instructions Recorded Confirmed Last Taken Type albuterol sulfate 90 mcg/actuation 1 inh inhalation QID 01/15/20 06/29/22 Unknown History aerosol inhaler (Proventil HFA) [id number]-qpkzczkjgczgb-tlwaudrv 250 1 tab PO Q4-6H PRN Headache 01/15/20 06/29/22 Unknown History mg-250 mg-65 mg tablet (Excedrin Migraine) loratadine 10 mg tablet (Allergy 10 mg PO DAILY 01/15/20 06/29/22 Unknown History Relief (loratadine)) montelukast 10 mg tablet 10 mg PO BEDTIME 01/15/20 06/29/22 Unknown History (Singulair) cholecalciferol (vitamin D3) 50 50 mcg PO DAILY 03/16/22 06/29/22 Unknown History mcg (2,000 unit) capsule (Vitamin D3) lisinopril 10 mg tablet 10 mg PO DAILY 03/16/22 06/29/22 Unknown History pantoprazole 40 mg tablet,delayed 40 mg PO BID 03/16/22 06/29/22 Unknown History release Exam Exam Date and Time: July 06, 2022 1207 Height,Weight and Vital Signs: Height 5 ft 6 in Weight 94.347 kg Last Vital Signs Pulse 73 06/29/22 12:21 Resp 16 06/29/22 12:21 BP 137/92 H 06/29/22 12:21 Pulse Ox 99 06/29/22 12:21 O2 Del Method Room Air 06/29/22 12:21 Narrative Narrative: EKG 05/2022 normal sinus rhythm normal EKG ECHO 05/2022 Conclusions: - The left ventricular systolic function is normal.? The ? calculated ejection fraction is 60% by biplane method. ? - LV peak GLS -19.7%.? - There is mild mitral valve regurgitation.? - There is mild tricuspid valve regurgitation. ? Exercise Stress 05/2022 Protocol: DWAIN ? Max HR: 176 BPM? 95% of? Pred: 185 BPM Max BP: 172/080 mmHG Max Work Load: 8.5 METS ? Exercise stress test with exercise 7 min 1 sec of Dwain protocol, achieving 93% ?MPHR, with fatigue and request to stop, without anginal symptoms, without ?arrythmia, with normotensive response to injection, without EKG changes meeting ?criteria for ischemia. Test reviewed with Dr Barry. Holter 05/2022 * Total monitoring time about 2 days. * Underlying rhythm is sinus.? Average ventricular rate 84/Min.? Range 62 to 180/Min. * About 12% the time, rate > 100/Min. * Extremely rare PACs and PVCs with minimal burden. * No significant pauses or AV blocks. * Patient markers used in association with sinus rhythm and sinus tachycardia.? * Chest pain in diary associated with sinus rhythm. Assessment and Plan Assessment Anesthesia Assessment: Chart Reviewed Documented by User: Yuriy Wisdom MD 07/07/22 13:17 [facility] Past Medical History Medical History Asthma Fibromyalgia Hypertension IBS (irritable bowel syndrome) Migraines Simple ovarian cyst Patient : No Family History Family History Mother Diabetes HTN (hypertension) Asthma Brother Asthma Family history of problems with anesthesia: No Surgical History Surgical History Hx of tubal ligation History of Problems with Anesthesia: No Social History Social History (Updated 06/29/22 @ 12:52 by Shefali Garrison RN) Household Members: Children Are you a primary intensive care nurse to a significant other at home: No (children 15,10,8 Mother will assist with care) Do you presently have visiting nurse or other home services: No Alcohol intake: never Patient Tobacco Use Status: Never used Tobacco Use of substances other than those prescribed or required for medical reasons: No Have you been hit, kicked, punched, or otherwise hurt by someone within the past year? 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 Sexual orientation: Straight/Heterosexual Gender identity: Female Meds Allergies Allergy/AdvReac Type Severity Reaction Status Date / Time No Known Allergies Allergy Verified 06/29/22 12:19 [No Known Allergies*] Home Medications Medication Instructions Recorded Confirmed Last Taken Type albuterol sulfate 90 mcg/actuation 1 inh inhalation QID 01/15/20 06/29/22 Unknown History aerosol inhaler (Proventil HFA) [id number]-kvddyzvzlqdbx-mqdnilpm 250 1 tab PO Q4-6H PRN Headache 01/15/20 06/29/22 Unknown History mg-250 mg-65 mg tablet (Excedrin Migraine) loratadine 10 mg tablet (Allergy 10 mg PO DAILY 01/15/20 06/29/22 Unknown History Relief (loratadine)) montelukast 10 mg tablet 10 mg PO BEDTIME 10/21/20 04/05/23 Unknown History (Singulair) cholecalciferol (vitamin D3) 50 50 mcg PO DAILY 03/16/22 06/29/22 Unknown History mcg (2,000 unit) capsule (Vitamin D3) lisinopril 10 mg tablet 10 mg PO DAILY 03/16/22 06/29/22 Unknown History pantoprazole 40 mg tablet,delayed 40 mg PO BID 03/16/22 06/29/22 Unknown History release Exam Airway Mallampati Class: I (large, but not huge tonsils. Should be an easy airway.) TM Dist: >3cm Neck ROM: Full Heart: ok Lungs: ok Assessment and Plan Assessment Anesthesia Assessment: Anesthesia Plan Discussed Final Anesthetic Review Family History of Problems with Anesthesia: No History of Problems with Anesthesia: No NPO: Yes ASA Class: II Final Preanesthetic Review: No Changes in Pt Med Stat, Meds/Allgs Chart Reviewed, Consent Obtained/Reviewed and Anes Risks/Benef Reviewed Patient Risk: Intermediate Procedure Risk: Intermediate Anesthetic Plan Anesthetic Plan: GA and Agree w/ Assess. and Plan Disposition: Standard PACU
[2022-07-07 12:55] VITALS: BP 126/81; PULSE 65; RESP 18; TEMP 36.7; O2SAT 96
[2022-07-07] MEDS: Lactated Ringers 1,000 ML 100 ML IVCONT (12:56)
--- NOTE | 2022-07-07 13:09 | PC.NURSE ---
IV is in right hand, insertion/attempt was once by Kelly ZULETA
--- NOTE | 2022-07-07 13:18 | MHC.SHP ---
Pre-Procedural Eval Section A Date of Service: 07/07/22 The patient is an INPATIENT: No The History & Physical has been completed within 30 days and I have reviewed it.: Yes Section B Chief Complaint: Acute recurrent tonsillitis, abdominal pain Allergies: Allergies Allergy/AdvReac Type Severity Reaction Status Date / Time No Known Allergies Allergy Verified 06/29/22 12:19 [No Known Allergies*] Plan I have reviewed the history and physical and performed a pertinent physical examination on my patient. No changes have occurred unless specified. EGD today Time Spent With Patient Time: Total time managing care of this patient today ____ minutes.
--- NOTE | 2022-07-07 13:43 | W.PM.OPN ---
Operative Note Operative Note Date of Service: 07/07/22 Narrative: Procedure Description: EGD Indication: abdominal pain Anesthesia: MAC FLEXIBLE TRANSORAL UPPER GASTROINTESTINAL ENDOSCOPY UPPER ENDOSCOPY Consent: Indications for the procedure and potential complications of bleeding, perforation, reaction to medications and missed diagnosis were discussed with the patient and informed consent was obtained. Instrument: Olympus GIF H 190 J mid size upper endoscope Monitoring: Vital signs and clinical assessment, continuous EKG monitoring, Pulse oximetry, Carbon Dioxide monitoring and blood pressure monitoring were done throughout the procedure. Procedure: The patient was placed in the left lateral decubitis position and pre-procedure medications were administered and a bite block was placed. The endoscope was inserted into the mouth and advanced under direct vision to the third part of duodenum. A careful inspection was made as the upper endoscope was withdrawn including a retroflexed examination of the proximal stomach; Findings and interventions are described below. Findings: Larynx:normal Esophagus: GE junction at 45 cm, diaphragm hiatus at 45 cm, possible tongues of short segment Barretts, bx taken from GEJ and distal/proximal esophagus in separate jars Stomach: Patchy gastric erythema. Biopsies were obtained. Grade 2 flap valve on retroflexed examination of the cardia. There was reduced gastric movement Duodenum: Normal bulb and descending duodenum, bx taken Intervention: Biopsies as noted above Impression/Findings: gastritis possible gastroparesis PLAN: await bx, if neg then can consider GES
[2022-07-07 13:50] VITALS: BP 127/83; PULSE 78; RESP 20; TEMP 36.3; O2SAT 99
[2022-07-07 14:05] VITALS: BP 135/86; PULSE 61; RESP 20; TEMP 36.4; O2SAT 100
== END 2022-07-07 14:55 | disposition home or self-care (01) ==
PROVIDERS: PCP Family Medicine; Visit Provider Internal Medicine Gastroenterology
PROC: 0DJ08ZZ Inspection of Upper Intestinal Tract, Via Natural or Artificial Opening Endoscopic (ICD-10-PCS; CPT 43235; principal; 2022-07-07 14:00)
DX: R10.9 Unspecified abdominal pain (principal); J03.91 Acute recurrent tonsillitis, unspecified; K29.70 Gastritis, unspecified, without bleeding; I10 Essential (primary) hypertension; J45.909 Unspecified asthma, uncomplicated
CPT/HCPCS: 43239; 88305; 88342; J3010

== ENCOUNTER 2022-08-25 09:05 | Emergency (ER) | payer MEDICAID, SELFPAY ==
[2022-08-25 09:17] VITALS: BP 151/65; PULSE 94; RESP 18; TEMP 37.5; O2SAT 98; BMI 35.0
[2022-08-25 10:09] VITALS: BP 138/93; PULSE 95; RESP 16; TEMP 37.4; O2SAT 100
[2022-08-25] MEDS: Ketorolac Tromethamine 30 MG/ML VIAL IM (10:30)
[2022-08-25] MEDS: Acetaminophen 325 MG TABLET 975 MG PO (10:30)
[2022-08-25 11:16] LABS: COVID-19 Test Negative (Negative); IDNOW Serial# 08D9AD1C; IDNOW Serial# BCCEAD1C; Influenza A Negative (Negative); Influenza B2 Negative (Negative)
--- NOTE | 2022-08-25 11:47 | ED.GENADULT ---
HPI - General Adult General Chief complaint: General Medical Stated complaint: body aches headache Time Seen by Provider: 08/25/22 10:12 History of Present Illness HPI narrative: Patient complains of body aches and headache and fatigue for 2 days, as well as a runny nose Patient has a history of migraines and this headache is very similar to her migraine, light hurts her eyes it is mostly centered around the eyes, it is similar to prior pattern it is gradual onset it is not accompanied by any stiff neck or high fever, there is no nausea or vomiting no dizziness no confusion She has no stiff neck no dizziness no fainting no feeling faint no sore throat no difficulty breathing or swallowing no shortness breath no chest pain no abdominal pain no nausea vomiting or diarrhea no dysuria no skin rash Related Data Home Medications Medication Instructions Recorded Confirmed albuterol sulfate 90 mcg/actuation 1 inh inhalation QID 01/15/20 06/29/22 aerosol inhaler (Proventil HFA) xcpooxk-vcujfpurwnrmb-oxolcrsd 250 1 tab PO Q4-6H PRN Headache 01/15/20 06/29/22 mg-250 mg-65 mg tablet (Excedrin Migraine) loratadine 10 mg tablet (Allergy 10 mg PO DAILY 01/15/20 06/29/22 Relief (loratadine)) montelukast 10 mg tablet 10 mg PO BEDTIME 01/15/20 06/29/22 (Singulair) cholecalciferol (vitamin D3) 50 50 mcg PO DAILY 03/16/22 06/29/22 mcg (2,000 unit) capsule (Vitamin D3) lisinopril 10 mg tablet 10 mg PO DAILY 03/16/22 06/29/22 pantoprazole 40 mg tablet,delayed 40 mg PO BID 03/16/22 06/29/22 release Previous Rx's Medication Instructions Recorded cyclobenzaprine 10 mg tablet 10 mg PO BEDTIME PRN muscle spasm 05/24/20 #3 tabs famotidine 20 mg tablet (Acid 20 mg PO BID #60 tabs 06/23/21 Coordinate Measuring Equipment Operator (famotidine)) medroxyprogesterone 150 mg/mL 150 mg IM Q12W #1 mL 07/13/21 intramuscular suspension (Depo-Provera) kpwtdelgdz-iavzhpbswyxmc-sfxiigsz 1 cap PO Q8H PRN pain #3 caps 08/09/21 50 mg-300 mg-40 mg capsule (Fioricet) dicyclomine 20 mg tablet 40 mg PO QID 30 days #240 tabs 03/16/22 ondansetron HCl 4 mg tablet 4 mg PO Q8H #14 tabs 03/16/22 simethicone 180 mg capsule 180 mg PO QID 30 days #120 caps 03/16/22 sumatriptan succinate 50 mg tablet 50 mg PO Q2-4H PRN migraine 03/24/22 headache #14 tabs propranolol 60 mg capsule,24 60 mg PO BEDTIME #90 caps 05/24/22 hr,extended release acetaminophen 500 mg tablet 1,000 mg PO QID PRN pain #30 tabs 08/25/22 ibuprofen 600 mg tablet 600 mg PO Q6H PRN pain #20 tabs 08/25/22 oxycodone 5 mg tablet 5 mg PO Q6H PRN pain #7 tabs 08/25/22 Allergies Allergy/AdvReac Type Severity Reaction Status Date / Time No Known Allergies Allergy Verified 08/25/22 09:17 [No Known Allergies*] [facility] Past Medical History Source: nursing notes reviewed Medical History Asthma Fibromyalgia Hypertension IBS (irritable bowel syndrome) Migraines Simple ovarian cyst Surgical History Hx of tubal ligation Family History Family History Mother Diabetes HTN (hypertension) Asthma Brother Asthma Social History Social History (Updated 06/29/22 @ 12:52 by Shefali Garrison RN) Household Members: Children Are you a primary field care coordinator to a significant other at home: No (children 15,10,8 Mother will assist with care) Do you presently have visiting nurse or other home services: No Alcohol intake: never Patient Tobacco Use Status: Never used Tobacco Current occupational status: employed 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 Sexual orientation: Straight/Heterosexual Gender identity: Female Physical Exam ED Vital Signs: Vital Signs - 24 hr 08/25/22 09:17 08/25/22 10:09 Temperature 99.5 F 99.4 F Pulse Rate 94 95 Respiratory Rate 18 16 Blood Pressure 151/65 H 138/93 H Pulse Oximetry 98 100 Oxygen Delivery Method Room Air Room Air BMI result Body Mass Index 35.0 General appearance no distress The eyes no redness or discharge The sinuses nontender The pharynx is clear without redness swelling or exudate Neck is supple Chest clear to auscultation with full symmetric equal breath sounds Heart no murmur Abdomen soft nontender Extremities full range of motion x4 Skin no rash Neuro cranial nerves 2-12 intact as tested no facial asymmetry, gait and balance are normal, finlhn-wm-grzm is zane, interaction comprehension expression and conversation are all normal, motor is 5/5 x4 and sensation is intact and symmetrical Course Course Course Narrative: COVID and flu tests were negative Patient had improvement in headache and body aches with Toradol and Tylenol and she is discharged with antipyretic and analgesics and is well-appearing Headache was not abrupt onset is typical of prior migraines, no evidence of meningitis no neurologic deficits Medications Administered Discontinued Medications Generic Name Dose Route Start Last Admin Trade Name Freq PRN Reason Stop Dose Admin Acetaminophen 975 mg 08/25/22 10:16 08/25/22 10:30 Acetaminophen 325 Mg Tablet PO 08/25/22 10:17 975 mg ONCE ONE Administration Ketorolac Tromethamine 30 mg 08/25/22 10:16 08/25/22 10:30 Ketorolac Tromethamine 30 Mg/Ml Vial IM 08/25/22 10:17 30 mg ONCE ONE Administration Medical Decision Making Lab Data Labs: Lab Results 08/25/22 08/25/22 Range/Units 10:21 10:21 COVID-19 (ARAMIS) Negative (Negative) COVID-19 Clin Com See Note Influenza Type A (LETITIA) Negative (Negative) Influenza Type B (LETITIA) Negative (Negative) Influenza A & B Note See Note Discharge Plan Discharge Clinical Impression: Acute viral syndrome, Headache Patient Disposition: Home, Self-Care Additional Instructions: COVID and flu tests were negative Your headache may have been triggered by a cold or virus, and is similar to prior migraines, so we are treating with analgesics Follow with your doctor and your referral to neurologist for your chronic headaches Return any time any worse condition or any concerns Prescriptions: New acetaminophen 500 mg tablet 1,000 mg PO QID PRN (Reason: pain) Qty: 30 0RF ibuprofen 600 mg tablet 600 mg PO Q6H PRN (Reason: pain) Qty: 20 0RF oxycodone 5 mg tablet 5 mg PO Q6H PRN (Reason: pain) Qty: 7 0RF Rx Instructions: Partial Fill upon patient request. No Action famotidine [Acid Coordinate Measuring Equipment Operator (famotidine)] 20 mg tablet 20 mg PO BID Qty: 60 6RF propranolol 60 mg capsule,extended release 24 hr 60 mg PO BEDTIME Qty: 90 1RF cyclobenzaprine 10 mg tablet 10 mg PO BEDTIME PRN (Reason: muscle spasm) Qty: 3 0RF kcsohcoxml-tvhaauscswcng-fchs [Fioricet] 50-300-40 mg capsule 1 cap PO Q8H PRN (Reason: pain) Qty: 3 0RF albuterol sulfate [Proventil HFA] 90 mcg/actuation HFA aerosol inhaler 1 inh inhalation QID montelukast [Singulair] 10 mg tablet 10 mg PO BEDTIME loratadine [Allergy Relief (loratadine)] 10 mg tablet 10 mg PO DAILY Excedrin Migraine 250-250-65 mg tablet 1 tab PO Q4-6H PRN (Reason: Headache) medroxyprogesterone [Depo-Provera] 150 mg/mL suspension 150 mg IM Q12W Qty: 1 5RF lisinopril 10 mg tablet 10 mg PO DAILY cholecalciferol (vitamin D3) [Vitamin D3] 50 mcg (2,000 unit) capsule 50 mcg PO DAILY pantoprazole 40 mg tablet,delayed release (DR/EC) 40 mg PO BID simethicone 180 mg capsule 180 mg PO QID 30 Days Qty: 120 3RF Rx Instructions: after meals ondansetron HCl 4 mg tablet 4 mg PO Q8H Qty: 14 0RF dicyclomine 20 mg tablet 40 mg PO QID 30 Days Qty: 240 6RF sumatriptan succinate 50 mg tablet 50 mg PO Q2-4H PRN (Reason: migraine headache) Qty: 14 3RF Rx Instructions: do not exceed 4 doses per 24 hrs Interventions: ED Discharge Assessment Last Done: 08/25/22 11:56 Discharge Date/Time: 08/25/22 11:56
== END 2022-08-25 11:56 | disposition home or self-care (01) ==
PROVIDERS: Physician Assistant Medical; Emergency Provider Emergency Medicine Emergency Medical Services; PCP Family Medicine
DX: B34.9 Viral infection, unspecified (principal); M79.10 Myalgia, unspecified site; R51.9 Headache, unspecified; Z20.822 Contact with and (suspected) exposure to COVID-19; Z20.828 Contact with and (suspected) exposure to other viral communicable diseases; Z79.899 Other long term (current) drug therapy
CPT/HCPCS: 87502; 87635; 96372; 99283; 99284; J1885

== ENCOUNTER → 2022-09-26 11:28 | Outpatient (BNVA) | payer MEDICAID, SELFPAY | PROVIDERS: PCP Family Medicine; Visit Provider Advanced Practice Midwife | DX: Z30.42 Encounter for surveillance of injectable contraceptive (principal) | CPT/HCPCS: 96372; 99211 ==

== ENCOUNTER 2022-10-25 13:36 | Outpatient (REF) | payer MEDICAID, SELFPAY ==
[2022-10-26 04:15] LABS: CT PCR NOT DETECTED (Not Detect.); NG PCR NOT DETECTED (Not Detect.)
[2022-10-26 15:34] LABS: BV Int Neg Control Negative (Negative); BV Int Pos Control Positive (Positive)
[2022-11-01 06:34] LABS: HPV mRNA E6/E7 rflx Not Detected (Not Detected)
== END 2022-10-25 13:37 | disposition home or self-care (01) ==
LOC: HO.LNP 13:36
PROVIDERS: PCP Family Medicine; Visit Provider Advanced Practice Midwife
DX: Z01.419 Encounter for gynecological examination (general) (routine) without abnormal findings (principal); Z11.51 Encounter for screening for human papillomavirus (HPV); A74.9 Chlamydial infection, unspecified; N92.0 Excessive and frequent menstruation with regular cycle; Z20.2 Contact with and (suspected) exposure to infections with a predominantly sexual mode of transmission; Z87.42 Personal history of other diseases of the female genital tract
CPT/HCPCS: 0353U; 87480; 87510; 87624; 87660; 88142; 99395

== ENCOUNTER 2022-10-25 13:36 | Outpatient (AMB) | payer MEDICAID, SELFPAY ==
--- NOTE | 2022-03-23 11:33 | A.OFFVIS_ITS ---
Intake Intake Visit Reasons: [employer] SAL[employer]ERSON annual exam Allergies No Known Allergies [No Known Allergies*] Allergy (Verified 03/22/22 16:04) HPI [employer] SAL[employer]ERSON annual exam HPI Details Laboratory Tests 03/22/22 03/22/22 03/22/22 16:21 16:21 23:08 WBC 7.8 Hgb 14.4 Hct 43.4 Estimated GFR 56 Total Bilirubin 0.9 AST 17 ALT 11 Alkaline Phosphata se 60 Urine Blood Trace H PFSH Medical History Asthma Fibromyalgia Hypertension IBS (irritable bowel syndrome) Migraines Simple ovarian cyst Surgical History Hx of tubal ligation Family History Mother Diabetes HTN (hypertension) Asthma Brother Asthma Social History Household Members: Children Alcohol intake: never Patient Tobacco Use Status: Never used Tobacco Current occupational status: employed 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
[2022-10-25 13:37] VITALS: BP 118/74; BMI 36.2
--- NOTE | 2022-10-25 13:37 | A.OFFVIS_ITS ---
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 Allergies No Known Allergies [No Known Allergies*] Allergy (Verified 10/25/22 13:37) Medication List - Last Reconciled 10/25/22 by Drea Burden CNM acetaminophen 1,000 mg (2 x 500 mg) PO QID PRN albuterol sulfate 90 mcg/actuation (Proventil HFA) 1 inh inhalation QID nsyzyxb-lgllexilrkapg-hahmqmmo 250-250-65 mg (Excedrin Migraine) 1 tab PO Q4-6H PRN bmrcqhjikn-mdzjadiqqczjy-xrnr 50-300-40 mg (Fioricet) 1 cap PO Q8H PRN cholecalciferol (vitamin D3) (Vitamin D3) 50 mcg PO DAILY cyclobenzaprine 10 mg PO BEDTIME PRN famotidine (Acid Applications Support Specialist (famotidine)) 20 mg PO BID ibuprofen 600 mg PO Q6H PRN lisinopril 10 mg PO DAILY loratadine (Allergy Relief (loratadine)) 10 mg PO DAILY medroxyprogesterone (Depo-Provera) 150 mg IM Q12W montelukast (Singulair) 10 mg PO BEDTIME ondansetron HCl 4 mg PO Q8H pantoprazole 40 mg PO BID propranolol ER 60 mg PO BEDTIME sumatriptan succinate 50 mg PO Q2-4H PRN Is last menstrual period known: Yes Last menstrual period: 09/21/22 [facility] 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 She is not having any problems and life is good right now. She is getting treated for migraines and will be seeing a specialist for that and was going to be having a full sleep study coming up but aside from that everything is good. She is using Depo-Provera to manage her heavy bleeding which was very heavy before she started on it she has had a tubal ligation so she does not needed for control and at the very moment she is not sexually active. Her past partner gave her chlamydia and so she is abstaining currently. She is interested in STI testing just to be sure. COUNTS INCLUDE 234 BEDS AT THE [facility] Medical History (Updated 10/25/22 @ 13:49 by Drea Burden CNM) Asthma Fibromyalgia Hypertension IBS (irritable bowel syndrome) Migraines Simple ovarian cyst Surgical History (Updated 10/25/22 @ 13:46 by Lorri Hendricks CMA) History of loop electrical excision procedure (LEEP) Hx of tubal ligation Family History Mother Diabetes HTN (hypertension) Asthma Brother Asthma Social History Household Members: Children Are you a primary dog daycare provider to a significant other at home: No (children 15,10,8 Mother will assist with care) Do you presently have visiting nurse or other home services: No Alcohol intake: never Patient Tobacco Use Status: Never used Tobacco Current occupational status: employed 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 Sexual orientation: Straight/Heterosexual Gender identity: Female Female Reproductive History Menstrual Age of Menarche: 15 Date of last menstrual period: 09/21/22 control method: other (depo) Total pregnancies: 4 Number of Living Children: 3 Ab spontaneous: 1 Date of last pap smear: 10/20/21 History of abnormal pap smear: Yes (2008 HGSIL 2007, 2006 LGSIL + HPV) Physical Exam Vital Signs: Last Vital Signs BP 118/74 10/25/22 13:37 BMI result Body Mass Index 36.2 Const General: healthy appearing, comfortable, no acute distress, well developed and alert Nutritional Appearance: average body habitus Orientation/consciousness: patient oriented x3 Limitations: no limitations HEENT Head: Yes normocephalic Neck Neck: Yes normal visual inspection Chest Chest palpation & inspection: normal inspection of the chest Breast/axilla inspection: normal inspection of the breasts and normal inspection of the axillae Breast/axilla palpation: normal palpation of the breasts and normal palpation of the axillae Resp Effort & Inspection: normal respiratory effort GI Inspection: Yes normal to inspection, No Abdominal wall edema and No distended Palpation (GI): Soft to palpation and nontender Other: Challenging to visualize patient cervix today cervix extremely anterior behind symphysis pubis small pink closed healthy appearing mucosa, uterus small nontender mobile good tone with Kegel. General: Yes bladder normal to palpation External Female Exam: normal external appearance and normal appearance of the urethra Speculum Exam - Vagina: normal appearance of the vagina, normal palpation and normal vaginal discharge Speculum Exam - Cervix: normal appearance of the cervix, normal palpation and n ontender Bimanual exam- vagina & uterus: normal bimanual exam, normal palpation, uterine size normal, bladder normal to palpation, consistency normal, normal palpation, uterine mobility normal, uterine shape normal, No Cervical tenderness present, non-tender and no cervical motion tenderness Bimanual Exam- Adnexa, other: normal adnexae, no masses, normal and No adnexal tenderness Neuro General: patient oriented x3 Results Reviewed Results Reviewed: [address] [address] Ultrasound Report Signed Patient: Shruti Winters MR#: [id number] : 1985 Acct:[id number] Age/Sex: 35 / F ADM Date: 07/01/20 Loc: . Attending Dr: Jerri Montenegro CNM Ordering Physician: Jerri Montenegro CNM Date of Service: 07/01/20 Procedure(s): US pelvic complete Accession Number(s): [id number] cc: Jerri Montenegro CNM~ EXAMINATION: PELVIC ULTRASOUND CLINICAL INFORMATION: Pain? COMPARISON: Previous exam most recent April 2020? TECHNIQUE: Transabdominal and transvaginal pelvic ultrasound was performed. Transvaginal exam was performed for better visualization of the uterus and ovaries.? FINDINGS: The uterus is anteverted and measures 7.6 x 3.6 x 5.2 cm in dimension. No focal uterine lesion is seen. Endometrial thickness is normal measuring 0.2 cm. There is a small amount of fluid seen in the endometrial canal. The cervix is normal appearing. The right ovary measures 3.3 x 2.4 x 1.9 cm. There is a 1.6 x 1.8 x 1.6 cm simple right ovarian cyst. There is a 2 x 2.2 x 1.7 cm simple paraovarian or adnexal cyst. The left ovary is normal-appearing and measures 2 x 1.1 x 1.8 cm. There is no fluid in the pelvis.? US/US pelvic complete IMPRESSION: 2 small right ovarian simple cysts. Otherwise unremarkable exam.? 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 Code(s): Z87.42 - Personal history of other diseases of the female genital tract (4) Well woman exam with routine gynecological exam: Code(s): Z01.419 - Encounter for gynecological examination (general) (routine) without abnormal findings (5) Menorrhagia: Comment: Currently managing with Depo-Provera with success 10/15 Code(s): N92.0 - Excessive and frequent menstruation with regular cycle (6) Potential exposure to STD: Code(s): Z20.2 - Contact with and (suspected) exposure to infections with a predominantly sexual mode of transmission (7) Hypertension: Code(s): I10 - Essential (primary) hypertension Plan -----Discussed in this visit the following: healthy balanced diet, regular and consistent exercise, getting recommended health screens, doing the best she can for her particular health concerns, kegel exercises, pap smear screening and followup recommendations, mammography screening and SBE, normal changes in cycles in her life stage--- . Discussed her long-term use of the Depo-Provera and that the erratically there can be some concern about long-term use and affect done bone mineralization. She does exercise and she goes to the gym and she is trying to stay healthy and she does get calcium from non milk sources including yogurt and cheese. She is not concerned about any STIs now but she wanted testing just to ensure that everything was still negative after the previous test of cure and she will wants to go get blood work as well. Also discussed the effects of weight gain with Depo-Provera and she has gained some weight over time. She will think about it but she is not really interested in the Mirena which I did discuss with her. Though since her exam today was challenging it would be a very challenging insertion as well. I told her I would refill her Depo so that she does not run out, but to consider the discussion. Patient continuing her excellent self-care at this time working on trying to eat healthier and exercise and workoutz. Orders: Orders Bacterial Vaginosis Panel Today Z87.42 - Personal history of other diseases of the female genital tract CT NG by PCR Today Z87.42 - Personal history of other diseases of the female genital tract Hepatitis B Surface Antigen Today Z20.2 - Contact with and (suspected) exposure to infections with a predominantly sexual mode of transmission Hepatitis C Antibody Today Z20.2 - Contact with and (suspected) exposure to infections with a predominantly sexual mode of transmission HIV Ab/Ag Today Z20.2 - Contact with and (suspected) exposure to infections with a predominantly sexual mode of transmission Syphilis Screen Today Z20.2 - Contact with and (suspected) exposure to infections with a predominantly sexual mode of transmission Pap Smear Today Z87.42 - Personal history of other diseases of the female genital tract Medications: Refilled medroxyprogesterone (Depo-Provera) 150 mg IM Q12W 1 mL 5RF Coding Level of Care Code Est Pt Prev Care 18-39y(85476) Diagnoses Chlamydia infection A74.9 Surveillance for Depo-Provera contraception Z30.42 Hx of abnormal cervical Pap smear Z87.42 Well woman exam with routine gynecological exam Z01.419 Menorrhagia N92.0 Potential exposure to STD Z20.2 Hypertension I10
== END 2022-10-25 14:23 | disposition home or self-care (01) ==
LOC: HO.HWS 13:36
PROVIDERS: PCP Family Medicine; Visit Provider Advanced Practice Midwife
DX: A74.9 Chlamydial infection, unspecified (principal); Z87.42 Personal history of other diseases of the female genital tract; Z01.419 Encounter for gynecological examination (general) (routine) without abnormal findings; N92.0 Excessive and frequent menstruation with regular cycle; Z20.2 Contact with and (suspected) exposure to infections with a predominantly sexual mode of transmission; I10 Essential (primary) hypertension
CPT/HCPCS: 99395

== ENCOUNTER 2022-12-02 11:03 | Outpatient (AMB) | payer MEDICAID, SELFPAY ==
--- NOTE | 2022-12-02 11:09 | MHC.OFFVIS ---
Intake Vital Signs 12/02/22 11:12 Height 5 ft 6 in Weight 224 lb 13.944 oz BMI 36.3 BP 124/81 Blood Pressure Location Lt brachial Position Sitting Pulse 76 Intake Visit Reasons: S/P EGD Intake Note: Shruti presents in the office as a follow up EGD CC: She states that sometimes when she eats she will get epigastric discomfort, bloating with nausea and acid reflux. Not as bad as it was before. Scullion Chief Required: No Allergies No Known Allergies [No Known Allergies*] Allergy (Verified 10/25/22 13:37) HPI S/P EGD HPI Details 37 yr old f here for f/u RECAP: she has had LUQ pain going into LLQ and left flank she has bloating can be better with soup and water can be worse with foods CT 05/2022---nml EGD 06/2022 Impression/Findings: gastritis possible gastroparesis Path--mild inflammation INTERIM: She has bloating and nausea--more epigastrium now, sometimes LUQ she has noted constipation as well, 1-2 d a week, she has to push v hard, she can be there for an hour or 2 she has had this for last few weeks, has had episodic bouts like this in past as well she doesn't eat a good diet, eats whatever she is not taking narcs or opioids she has bad acid reflux but PPI works well no smoking, no drugs, no alcohol she still never got seen by ENT for her enlarged tonsil EXAM: GENERAL: The patient is well developed and nontoxic. VITAL SIGNS:see workflow HEENT: Nonicteric sclerae, PERRLA. Oropharynx with large right sided tonisil and smaller enlarged left tosnil almost blocking back of throat Moist mucous membranes. Conjunctivae appear well perfused. No thyroid mass. CHEST: Chest wall is nontender. HEART: Regular rate and rhythm without murmurs. LUNGS: Clear to auscultation bilaterally. ABDOMEN: Soft, positive bowel sounds, tender epigastrium, no organomegaly.no flank tenderness SKIN: No rash, no excessive bruising, petechiae, or purpura. NEUROLOGIC: Cranial nerves II-XII intact without motor/sensory deficit. A/P: 1/ Abdominal pain, uncertain etiology, neg labs and imaging--enlarged tonsil prob causing RYAN, poor sleep and headaches, uncertain if causing her abdo pain, she has also noted worsening constipation plan; 1/ refer ent again 2/ KUB 3. sent trulance 4/ check tsh 5/ colonoscopy with PEG for further assessment, [facility] Medical History (Updated 12/02/22 @ 11:48 by Shavonne Covarrubias MD) Simple ovarian cyst Hypertension IBS (irritable bowel syndrome) Fibromyalgia Asthma Migraines Surgical History (Updated 12/02/22 @ 11:12 by CAROLYN Ann) History of esophagogastroduodenoscopy (EGD) History of loop electrical excision procedure (LEEP) Hx of tubal ligation Family History Mother Diabetes HTN (hypertension) Asthma Brother Asthma Social History Household Members: Children Are you a primary pharmacy customer care specialist to a significant other at home: No (children 15,10,8 Mother will assist with care) Do you presently have visiting nurse or other home services: No Alcohol intake: never Patient Tobacco Use Status: Never used Tobacco Current occupational status: employed 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 Panel Today K59.01 - Slow transit constipation, K75.81 - Nonalcoholic steatohepatitis (STARR), R10.10 - Upper abdominal pain, unspecified, R10.2 - Pelvic and perineal pain Complete Blood Count Auto Diff Today K59.01 - Slow transit constipation, R10.10 - Upper abdominal pain, unspecified, R10.2 - Pelvic and perineal pain XR KUB Today R10.10 - Upper abdominal pain, unspecified TSH reflex Free T4 Today K59.01 - Slow transit constipation, R10.10 - Upper abdominal pain, unspecified, R10.2 - Pelvic and perineal pain Transglutaminase Ab IgG Today G89.29 - Other chronic pain, K59.01 - Slow transit constipation, R10.10 - Upper abdominal pain, unspecified, R10.2 - Pelvic and perineal pain, R10.33 - Periumbilical pain Medications: New plecanatide (Trulance) 3 mg PO DAILY 30 tabs 2RF peg-electrolyte soln 420 gram until fecal effluent is clear 240 mL PO Q10M 4,000 mL 0RF ondansetron 4 mg PO Q8H 10 tabs 0RF Discontinued ondansetron HCl Discontinued Reason: Duplicate 4 mg PO Q8H 14 tabs 0RF Coding Level of Care Code Est Pt Level 4 (31308) Diagnoses Upper abdominal pain R10.10 Pelvic pain R10.2
[2022-12-02 11:12] VITALS: BP 124/81; PULSE 76; BMI 36.3
== END 2022-12-02 13:06 | disposition home or self-care (01) ==
PROVIDERS: PCP Family Medicine; Visit Provider Internal Medicine Gastroenterology
DX: R10.10 Upper abdominal pain, unspecified (principal); R10.2 Pelvic and perineal pain
CPT/HCPCS: 99214

== ENCOUNTER 2022-12-02 13:04 | Outpatient (REF) | payer MEDICAID, SELFPAY ==
--- NOTE | ~2022-12-02 | XR_ITS ---
EXAMINATION: XR ABDOMEN COMPLETE CLINICAL INDICATION: Reason for Exam R10.10 - Upper abdominal pain, unspecified COMPARISON: KUB 03/16/2022 TECHNIQUE: AP view of the abdomen. FINDINGS: Lines or devices: None. Nonobstructive bowel gas pattern. Moderate colonic stool burden in the right hemicolon. Supine technique limits evaluation for extraluminal air although no secondary findings are appreciated. Few calcifications in the pelvis which may reflect phleboliths, unchanged. XR/XR KUB IMPRESSION: 1. Nonobstructive bowel gas pattern. Moderate colonic stool burden in the right hemicolon.
--- NOTE | ~2022-12-02 | US_ITS ---
EXAMINATION: US PELVIS CLINICAL INFORMATION: Pelvic and perineal pain LMP 11/15/2022 COMPARISON: CT scan 06/11/2022, pelvic ultrasound 07/01/2020 and 04/07/2020 TECHNIQUE: Ultrasound of the pelvis is performed using both transabdominal and transvaginal transducers along with Doppler. Transvaginal imaging is performed due to inadequate visualization transabdominally. FINDINGS: Uterus: The uterus is retroverted and measures 7.0 x 3.4 x 4.1 cm. The endometrial thickness is 0.5 mm. There is trace fluid within the endometrial cavity. Adnexa: Right ovary measures 2.1 x 1.7 x 1.3 cm. Volume 2.4 mL. There is a 2.4 x 1.9 x 2.0 cm paraovarian cyst with solid internal nodule measuring 0.7 x 0.5 x 0.5 cm without associated vascularity. Left ovary measures 2.8 x 1.8 x 1.5 cm. Volume 4.0 mL. The left ovary contains a 1.6 x 1.0 x 1.5 cm dominant follicle, a normal finding. This requires no further follow-up. There is no free fluid within the cul-de-sac. US/US pelvic and transvaginal IMPRESSION: 1. Normal retroverted uterus. 2. 2.4 cm right paraovarian cyst with solid internal nodule. Follow-up in 4-6 weeks after the patient's next menses could be obtained. 3. Normal left ovary.
[2022-12-02 14:06] LABS: MANUAL DIFF FLAG NO
[2022-12-02 14:46] LABS: Basophils Percent Auto 0.5 % (0-2); Eosinophils Absolute Auto 0.1 X10*3/uL (0.0-0.4); Eosinophils Percent Auto 1.6 % (0-4); Hematocrit 37.9 % (37.0-47.0); Hemoglobin 12.3 g/dl (12.0-16.0); Imm Gran Abs Auto 0.01 X10*3/uL (0.00-0.03); Imm Gran Pct Auto 0.2 % (0.0-0.4); Lymphocytes Absolute Auto 2.7 X10*3/uL (1.2-4.9); Mean Corpuscular HGB Conc 32.5 g/dl (31.0-35.0); Mean Corpuscular Hemoglobin 27.8 pg (27.0-33.0); Mean Corpuscular Volume 85.7 fL (80.0-98.0); Mean Platelet Volume 10.4 fL (9.4-12.3); Monocytes Absolute Auto 0.4 X10*3/uL (0.1-1.2); Monocytes Percent Auto 6.2 % (2-11); Neutrophils Absolute Auto 2.9 x10*3/uL (2.0-8.3); Neutrophils Percent Auto 47.5 % (45-73); Platelet Count 251 X10*3/uL (160-400); Red Blood Count 4.42 X10*6/uL (4.20-5.50); Red Cell Distribution Width 13.9 % (11.0-16.0); White Blood Count 6.1 X10*3/uL (4.8-10.8)
[2022-12-02 15:31] LABS: Alanine Aminotransferase 10 U/L (0-31); Albumin Level 4.3 g/dL (3.5-5.0); Alkaline Phosphatase 62 U/L (39-117); Anion Gap 9 (12-20); Aspartate Amino Transferase 14 U/L (5-31); Bilirubin Total 0.4 mg/dL (0.0-1.0); Blood Urea Nitrogen 12 mg/dL (9-16); Calcium 9.6 mg/dL (8.4-10.2); Carbon Dioxide 25 mmol/L (22-29); Chloride 108 mmol/L (96-108); Estimated Glomerular Filt Rate > 60; Glucose Random 89 mg/dL (60-115); Sodium 138 mmol/L (135-145); Total Protein 7.5 g/dL (6.5-8.0)
[2022-12-02 15:48] LABS: TSH reflex Free T4 1.28 uIU/mL (0.32-4.0)
[2022-12-05 14:44] LABS: Transglutaminase Ab IgG <1.0 U/mL
== END 2022-12-02 13:05 | disposition home or self-care (01) ==
LOC: HO.US 13:04
PROVIDERS: Absent Provider Internal Medicine Gastroenterology; PCP Family Medicine; Visit Provider Advanced Practice Midwife
DX: R10.10 Upper abdominal pain, unspecified (principal); R10.2 Pelvic and perineal pain; K75.81 Nonalcoholic steatohepatitis (NASH); K59.01 Slow transit constipation; R10.33 Periumbilical pain; G89.29 Other chronic pain
CPT/HCPCS: 36415; 74018; 76830; 76856; 80053; 84443; 85025; 86364; 99212

== ENCOUNTER 2022-12-15 11:11 | Outpatient (AMB) | payer MEDICAID, SELFPAY ==
--- NOTE | 2022-12-15 11:12 | MHC.OFFVIS ---
Intake Intake Visit Reasons: Ultrasound follow up Dermatology Nurse Practitioner Required: No Allergies No Known Allergies [No Known Allergies*] Allergy (Verified 12/15/22 11:12) Medication List - Last Reconciled 12/15/22 by Drea Burden CNM acetaminophen 1,000 mg (2 x 500 mg) PO QID PRN albuterol sulfate 90 mcg/actuation (Proventil HFA) 1 inh inhalation QID pozklly-tmydnmelmuzyq-myqwjrlh 250-250-65 mg (Excedrin Migraine) 1 tab PO Q4-6H PRN pcpdqwyvts-knlodfrcfdhby-hdeh 50-300-40 mg (Fioricet) 1 cap PO Q8H PRN cholecalciferol (vitamin D3) (Vitamin D3) 50 mcg PO DAILY cyclobenzaprine 10 mg PO BEDTIME PRN famotidine (Acid Program Facilitator (famotidine)) 20 mg PO BID fluticasone propion-salmeterol 250-50 mcg/dose (Advair Diskus) 1 ea inhalation BID ibuprofen 600 mg PO Q6H PRN lisinopril 10 mg PO DAILY loratadine (Allergy Relief (loratadine)) 10 mg PO DAILY medroxyprogesterone (Depo-Provera) 150 mg IM Q12W metronidazole 500 mg PO BID 7 days montelukast (Singulair) 10 mg PO BEDTIME ondansetron 4 mg PO Q8H pantoprazole 40 mg PO BID peg-electrolyte soln 420 gram 240 mL PO Q10M plecanatide (Trulance) 3 mg PO DAILY propranolol ER 60 mg PO BEDTIME sumatriptan succinate 50 mg PO Q2-4H PRN topiramate 25 mg PO BEDTIME Post menopausal: No HPI Ultrasound follow up HPI Details This is a tele visit to discuss patient's ultrasound that was done. She has been having irregular pains and irregular bleeding she is on Depo-Provera and absolutely denies any late Depo-Provera refer search of the records reveals during the visit that she had her Depo-Provera most recently on July 06 then on September 26 and has her next 1 scheduled for December 19. She says she has still been getting periods but she also gets pinkish discharge and sometimes brown a couple of weeks after her periods. She says she is not sexually active right now she says that she was very uncomfortable during the pelvic ultrasound that she had done on December 02 when the vaginal probe was moving from side to side that it hurt her a lot and that periodically she will get a pain but it is not on the right side it is on the left side and it can be very severe. She does admit to some constipation that was pretty active a couple of weeks ago but in the last couple of weeks she has been able to go to the bathroom a little bit more she has been seeing Gastroenterology and of a colonoscopy is planned for the future but the date has not been set yet. She had a para ovarian cyst noted on a previous ultrasound and also she had had a CT scan that was done prior to that ultrasound as well. The paraovarian cyst was again seen on the most recent ultrasound on December 02 and radiology is recommending a follow-up scan 4-6 weeks from the previous 1 and have it be scheduled after her menses. The patient states that she had her menses right before that last ultrasound on December 02. She cites her menstrual flow as coming on November 15 and lasting to about the and then she had the pinkish discharge on the and and then she had the ultrasound on the . I have reviewed her ultrasound and also the previous ultrasounds and CT scans with her in detail as well as her symptoms of pain and her history of when she has taken the Depo-Provera. In addition a previous visits she had had chlamydia diagnosed that was treated. Her last visit was on December 15 with me. Her cervix was noted to be extremely difficult to reach right behind her symphysis pubis. Discussion had taken place about a Mirena IU S but I had told her it might be difficult to place because of the position of her cervix but the patient is not interested in a Mirena IU S in any case anyway. I reviewed all of the above and asked her to continue to keep track of her menstrual cycle any bleeding it she has as well as her constipation cycle as well as pain that she has and where. I am recommending that we followed radiology advice about timing of a follow-up ultrasound and that she be seen for an exam after that ultrasound so the ultrasound is ordered for about 4 weeks from now and it should be done after her menses and we will have a visit after that with an exam depending on the following up of that ultrasound in that exam she may be referred to see Dr. Jett after that. Additionally I did talk to her about the possibility that long-term constipation over the years can contribute to formation of diverticuli in our intestines and while the vaginal probe ultrasound was being done in her lower pelvic region right above that is the fascia that separates her intestinal area and if she was tender there from any inflammation of anything that could be interpreted as pain in her pelvic region. I had discussed diverticuli and how they form and that if any are noted on her colonoscopy she should follow what ever dietary recommendations are given her to prevent inflammation. We will see her after her ultrasound for exam and evaluation she is planning to stay on the Depo-Provera for now. [facility] Medical History Simple ovarian cyst Hypertension IBS (irritable bowel syndrome) Fibromyalgia Asthma Migraines Surgical History History of esophagogastroduodenoscopy (EGD) History of loop electrical excision procedure (LEEP) Hx of tubal ligation Family History Mother Diabetes HTN (hypertension) Asthma Brother Asthma Social History Household Members: Children Are you a primary adult day care worker to a significant other at home: No (children 15,10,8 Mother will assist with care) Do you presently have visiting nurse or other home services: No Alcohol intake: never Patient Tobacco Use Status: Never used Tobacco Current occupational status: employed 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 Sexual orientation: Straight/Heterosexual Gender identity: Female Female Reproductive History Menstrual Age of Menarche: 15 control method: other (tubal ligation) Results Reviewed Results Reviewed: Patient: Shruti Winters MR#: [id number] : 1985 Acct:[id number] Age/Sex: 37 / F ADM Date: 12/02/22 Loc: HO.US Attending Dr: Drea Burden CNM Ordering Physician: Drea Burden CNM Date of Service: 12/02/22 Procedure(s): US pelvic and transvaginal Accession Number(s): [id number] cc: Drea Burden CNM; Lu Estrada MD~ EXAMINATION: US PELVIS CLINICAL INFORMATION: Pelvic and perineal pain LMP 11/15/2022 COMPARISON: CT scan 06/11/2022, pelvic ultrasound 07/01/2020 and 04/07/2020 TECHNIQUE: Ultrasound of the pelvis is performed using both transabdominal and transvaginal transducers along with Doppler. Transvaginal imaging is performed due to inadequate visualization transabdominally. FINDINGS: Uterus: The uterus is retroverted and measures 7.0 x 3.4 x 4.1 cm. The endometrial thickness is 0.5 mm. There is trace fluid within the endometrial cavity. Adnexa: Right ovary measures 2.1 x 1.7 x 1.3 cm. Volume 2.4 mL. There is a 2.4 x 1.9 x 2.0 cm paraovarian cyst with solid internal nodule measuring 0.7 x 0.5 x 0.5 cm without associated vascularity. Left ovary measures 2.8 x 1.8 x 1.5 cm. Volume 4.0 mL. The left ovary contains a 1.6 x 1.0 x 1.5 cm dominant follicle, a normal finding. This requires no further follow-up. There is no free fluid within the cul-de-sac. US/US pelvic and transvaginal IMPRESSION: 1. Normal retroverted uterus. 2. 2.4 cm right paraovarian cyst with solid internal nodule. Follow-up in 4-6 weeks after the patient's next menses could be obtained. 3. Normal left ovary. Dictated By: Moira Crockett MD Signed By: <Electronically signed by Moira Crockett MD in OV> 12/05/22 0848 'Patient: Shruti Winters MR#: [id number] : 1985 Acct:[id number] Age/Sex: 37 / F ADM Date: 06/11/22 Loc: HO.ED Attending Dr: Ordering Physician: Robb Murray MD Date of Service: 06/11/22 Procedure(s): CT abdomen pelvis wo IV con Accession Number(s): [id number] cc: Robb Murray MD~ EXAMINATION: CT ABDOMEN AND PELVIS WITHOUT CONTRAST CLINICAL INFORMATION: Left-sided abdominal pain. COMPARISON: 08/04/2012 TECHNIQUE: Multidetector volumetric imaging was performed from the superior aspect of the liver through the pubic symphysis. Sagittal and coronal reformatted images were obtained on the technologist's workstation. This CT examination was performed using dose optimization techniques as appropriate, variously including the following: *Automated exposure control *Adjustment of mA and/or kV according to patient size (this includes techniques or standardized protocols for targeted exams where dose is matched to indication/reason for exam; i.e. extremities or head) *Use of iterative reconstruction technique DLP: 754 mGy-cm FINDINGS: LUNG BASES: The visualized lung bases are unremarkable. LIVER, GALLBLADDER, AND BILIARY TREE: The liver is normal in size, shape, and attenuation. No focal hepatic lesion or biliary ductal dilatation is present. The gallbladder is contracted with no evidence of radiopaque gallstones, gallbladder wall thickening, or obvious pericholecystic inflammatory changes. PANCREAS: Unremarkable. SPLEEN: Unremarkable. ADRENAL GLANDS: Unremarkable. KIDNEYS AND URETERS: The kidneys are normal in size, shape, and attenuation. No hydronephrosis, hydroureter, or calculi seen. No perinephric stranding. BLADDER: Unremarkable. GASTROINTESTINAL TRACT: The stomach is unremarkable. Normal caliber of the small bowel. No obstruction. Normal appendix. No colonic wall thickening or acute inflammation. No free air or free fluid. ABDOMINAL WALL: No significant hernia is appreciated. LYMPH NODES: Normal. VASCULAR: Unremarkable. PELVIC VISCERA: The uterus and adnexa are unremarkable. OSSEOUS STRUCTURES: No acute or suspicious osseous abnormality. CT/CT abdomen pelvis wo IV con IMPRESSION: No acute findings of the abdomen or pelvis. No inflammatory changes. Fleischner guidelines were followed. Dictated By: Sly Escudero MD Signed By: <Electronically signed by Sly Escudero MD in OV> 06/11/22 2313 DD/ 2303 TD/TT: Solar System Designer: VICTOR MANUEL ADM Date: 07/01/20 Loc: HO.US Attending Dr: Jerri Montenegro CNM Ordering Physician: Jerri Montenegro CNM Date of Service: 07/01/20 Procedure(s): US pelvic complete Accession Number(s): [id number] cc: Jerri Montenegro CNM~ EXAMINATION: PELVIC ULTRASOUND CLINICAL INFORMATION: Pain? COMPARISON: Previous exam most recent April 2020? TECHNIQUE: Transabdominal and transvaginal pelvic ultrasound was performed. Transvaginal exam was performed for better visualization of the uterus and ovaries.? FINDINGS: The uterus is anteverted and measures 7.6 x 3.6 x 5.2 cm in dimension. No focal uterine lesion is seen. Endometrial thickness is normal measuring 0.2 cm. There is a small amount of fluid seen in the endometrial canal. The cervix is normal appearing. The right ovary measures 3.3 x 2.4 x 1.9 cm. There is a 1.6 x 1.8 x 1.6 cm simple right ovarian cyst. There is a 2 x 2.2 x 1.7 cm simple paraovarian or adnexal cyst. The left ovary is normal-appearing and measures 2 x 1.1 x 1.8 cm. There is no fluid in the pelvis.? US/US pelvic complete IMPRESSION: 2 small right ovarian simple cysts. Otherwise unremarkable exam.? Dictated By: MOIRA GONZALEZ MD Signed By: <Electronically signed by MOIRA GONZALEZ MD in OV> 07/02/20 1311 DD/ 1555 Assessment & Plan Assessment & Plan (1) Para-ovarian cyst: Code(s): Q50.5 - Embryonic cyst of broad ligament (2) Constipation by delayed colonic transit: Code(s): K59.01 - Slow transit constipation (3) Pelvic pain: Code(s): R10.2 - Pelvic and perineal pain Plan This is a tele visit to discuss patient's ultrasound that was done. She has been having irregular pains and irregular bleeding she is on Depo-Provera and absolutely denies any late Depo-Provera refer search of the records reveals during the visit that she had her Depo-Provera most recently on July 06 then on September 26 and has her next 1 scheduled for December 19. She says she has still been getting periods but she also gets pinkish discharge and sometimes brown a couple of weeks after her periods. She says she is not sexually active right now she says that she was very uncomfortable during the pelvic ultrasound that she had done on December 02 when the vaginal probe was moving from side to side that it hurt her a lot and that periodically she will get a pain but it is not on the right side it is on the left side and it can be very severe. She does admit to some constipation that was pretty active a couple of weeks ago but in the last couple of weeks she has been able to go to the bathroom a little bit more she has been seeing Gastroenterology and of a colonoscopy is planned for the future but the date has not been set yet. She had a para ovarian cyst noted on a previous ultrasound and also she had had a CT scan that was done prior to that ultrasound as well. The paraovarian cyst was again seen on the most recent ultrasound on December 02 and radiology is recommending a follow-up scan 4-6 weeks from the previous 1 and have it be scheduled after her menses. The patient states that she had her menses right before that last ultrasound on December 02. She cites her menstrual flow as coming on November 15 and lasting to about the and then she had the pinkish discharge on the and and then she had the ultrasound on the . I have reviewed her ultrasound and also the previous ultrasounds and CT scans with her in detail as well as her symptoms of pain and her history of when she has taken the Depo-Provera. In addition a previous visits she had had chlamydia diagnosed that was treated. Her last visit was on December 15 with me. Her cervix was noted to be extremely difficult to reach right behind her symphysis pubis. Discussion had taken place about a Mirena IU S but I had told her it might be difficult to place because of the position of her cervix but the patient is not interested in a Mirena IU S in any case anyway. I reviewed all of the above and asked her to continue to keep track of her menstrual cycle any bleeding it she has as well as her constipation cycle as well as pain that she has and where. I am recommending that we followed radiology advice about timing of a follow-up ultrasound and that she be seen for an exam after that ultrasound so the ultrasound is ordered for about 4 weeks from now and it should be done after her menses and we will have a visit after that with an exam depending on the following up of that ultrasound in that exam she may be referred to see Dr. Jett after that. Additionally I did talk to her about the possibility that long-term constipation over the years can contribute to formation of diverticuli in our intestines and while the vaginal probe ultrasound was being done in her lower pelvic region right above that is the fascia that separates her intestinal area and if she was tender there from any inflammation of anything that could be interpreted as pain in her pelvic region. I had discussed diverticuli and how they form and that if any are noted on her colonoscopy she should follow what ever dietary recommendations are given her to prevent inflammation. We will see her after her ultrasound for exam and evaluation she is planning to stay on the Depo-Provera for now. Orders: Orders US pelvic and transvaginal 4 Weeks Q50.5 - Embryonic cyst of broad ligament Telehealth Telehealth Location of provider rendering services: practice address Location of patient: address on file Patient Identification confirmed using: Name, : Yes Telehealth method: voice only (doesn't want video) Patient verbally consented to treatment: Yes Patient verbally consented to billing insurance company: Yes Patient informed of any privacy concerns related to visit: Yes Coding Level of Care Code Tele Est Pt Level 3 (85311) Diagnoses Para-ovarian cyst Q50.5 Constipation by delayed colonic transit K59.01 Pelvic pain R10.2 Time Spent (min) 35 Comment 6cr/21speaking w pt( declined video);8charting
== END 2022-12-15 12:58 | disposition home or self-care (01) ==
LOC: HO.HWS 11:11
PROVIDERS: PCP Family Medicine; Visit Provider Advanced Practice Midwife
DX: Q50.5 Embryonic cyst of broad ligament (principal); K59.01 Slow transit constipation; R10.2 Pelvic and perineal pain
CPT/HCPCS: 99213

== ENCOUNTER → 2022-12-15 11:11 | Outpatient (BNVA) | payer MEDICAID, SELFPAY | PROVIDERS: PCP Family Medicine; Visit Provider Advanced Practice Midwife ==

== ENCOUNTER 2022-12-19 10:38 | Outpatient (AMB) | payer MEDICAID, SELFPAY ==
[2022-12-19 11:02] VITALS: BMI 36.7
--- NOTE | 2022-12-19 11:02 | AM.OFFVISNUR ---
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 Pt is being followed by Drea for irregular menses and menorrhagia. Pt tolerated injection well and she will schedule her next injection for 12 weeks from now. Office Procedures Depo Questionnaire If YES to any of the following questions, please consult a provider. Date of last injection: 09/26/22 Date of last gynecology exam: 10/25/22 Menstrual pattern since last injection has been: Not Applicable Irregular bleeding?: Yes Breast lumps or other breast changes?: No Changes in weight or appetite?: No Depression or changes in mood?: No Abnormal hair growth or loss?: No Skin problems (rash, acne, discoloration)?: No Pain at the injection site?: No Headaches?: No Nervousness?: No Dizziness or nausea?: No Fatigue or weakness?: No Decrease in sexual drive?: No Chest pain or shortness of breath?: No Swelling in arms or legs?: No Form completed by?: Mago Correia RN Office Meds Depo-Provera 150 mg/mL intramuscular syringe Performing Provider: Drea Burden CNM [place] [facility] Administered by: Mago Correia on 12/19/22 11:06 Dose Route Admin Location Dispensed Lot Number Expiration Date [facility] Licensed Aircraft Maintenance Engineer 150 mg IM left deltoid 1 mL [id number] 01/24/25 59746-081-74 [facility] Coding Level of Care Code Established Pt Est Pt Level 1 (18608) Patient Type Established History Problem Focused Medical Decision Making Straight Forward Time Spent (min) 12 Assessment & Plan Assessment & Plan Orders: Orders AMB Medroxyprogesterone Injection Patient Supplied Today Z30.42 - Encounter for surveillance of injectable contraceptive
== END 2022-12-19 10:59 | disposition home or self-care (01) ==
PROVIDERS: PCP Family Medicine; Visit Provider Advanced Practice Midwife
DX: Z30.42 Encounter for surveillance of injectable contraceptive (principal)

== ENCOUNTER → 2022-12-19 10:38 | Outpatient (BNVA) | payer MEDICAID, SELFPAY | PROVIDERS: PCP Family Medicine; Visit Provider Advanced Practice Midwife | DX: Z30.42 Encounter for surveillance of injectable contraceptive (principal) | CPT/HCPCS: 96372; 99211; J1050 ==

== ENCOUNTER 2023-01-30 12:21 | Outpatient (REF) | payer MEDICAID, SELFPAY | END 2023-01-30 12:22 | disposition home or self-care (01) | LOC: HO.HOSX 12:21 | PROVIDERS: Visit Provider Physician Assistant | DX: Z13.89 Encounter for screening for other disorder (principal) ==

== ENCOUNTER 2023-03-15 09:38 | Outpatient (REF) | payer MEDICAID, SELFPAY | END 2023-03-15 09:39 | disposition home or self-care (01) | LOC: HO.HOSX 09:38 | PROVIDERS: Visit Provider Physician Assistant | DX: Z13.89 Encounter for screening for other disorder (principal) ==

== ENCOUNTER → 2023-04-14 13:30 | Outpatient (BNV) | payer MEDICAID, SELFPAY | PROVIDERS: PCP Family Medicine; Visit Provider Radiology Diagnostic Radiology | DX: N64.4 Mastodynia (principal) | CPT/HCPCS: 76642; 77062; 77066 ==

== ENCOUNTER 2023-04-14 13:40 | Outpatient (REF) | payer MEDICAID, SELFPAY ==
--- NOTE | ~2023-04-14 | MM_ITS ---
EXAMINATION: MM DIAGNOSTIC DIGITAL BREAST TOMOSYNTHESIS, BILATERAL US BREAST LIMITED, BILATERAL MAMMOGRAPHY: CLINICAL INFORMATION: Patient complaining of bilateral inferior breast pain. 37-year-old female. COMPARISON: Mammography: 04/28/2022, and 05/09/2018. (Both for same symptoms) TECHNIQUE: Digital breast tomosynthesis is performed in both the craniocaudal and mediolateral oblique views along with computer-aided detection (CAD). Synthesized 2D images are generated from the tomosynthesis. FINDINGS: There are scattered areas of fibroglandular density (ACR BI-RADS breast composition Category b). Breast density is bordering on heterogeneously dense. There are no suspicious masses, suspicious grouped calcifications, or areas of architectural distortion in either breast. The parenchymal pattern is stable from prior exams. No skin abnormalities. There are numerous small lymph nodes again identified in both axillary regions. There is no mammographic correlate to the inferior regions of breast pain. ULTRASOUND: CLINICAL INFORMATION: As above. COMPARISON: 05/09/2018, 04/28/2022. TECHNIQUE: Targeted sonographic evaluation was performed using a high frequency linear transducer. Attention was given to both breasts in the 3:00 to 9:00 regions in the areas of breast pain. Selected archived documentation. FINDINGS: RIGHT BREAST: There is a mixture of fatty and fibroglandular tissue. No suspicious mass is seen. There is no pathologic acoustic shadowing. There is no cystic abnormality. No sonographic abnormality in the inferior breast. LEFT BREAST: There is a mixture of fatty and fibroglandular tissue. No suspicious mass is seen. There is no pathologic acoustic shadowing. There is no cystic abnormality. No sonographic abnormality in the inferior breast. MM/MM tomosynthesis diagnostic BI IMPRESSION: No findings suspicious for malignancy in either breast. No mammographic or ultrasonographic correlate to the regions of inferior breast pain bilaterally. Recommend clinical management. Otherwise, recommend beginning screening mammography at age 40. OVERALL ASSESSMENT: Mammography: BI-RADS 2 - Benign Findings Ultrasound: BI-RADS 2 - Benign Findings RECOMMENDATION: 1. Patient should be managed based on the clinical impression. 2. Otherwise, routine annual screening mammography.-Beginning at age 40 Results were provided to the patient at time of visit by the technologist.
== END 2023-04-14 13:41 | disposition home or self-care (01) ==
LOC: HO.MAMMO 13:40
PROVIDERS: PCP Family Medicine; Visit Provider Family Medicine
DX: N64.4 Mastodynia (principal)
CPT/HCPCS: 76642; 77062; 77066

== ENCOUNTER 2023-04-25 13:20 | Outpatient (REF) | payer MEDICAID, SELFPAY ==
--- NOTE | ~2023-04-25 | US_ITS ---
EXAMINATION: US PELVIS CLINICAL INFORMATION: Follow-up paraovarian cyst; the last menstrual period was on 04/10/2023. COMPARISON: Prior pelvic ultrasound examinations, most recently 12/02/2022. TECHNIQUE: Ultrasound of the pelvis is performed using both transabdominal and transvaginal transducers along with Doppler. Transvaginal imaging is performed due to inadequate visualization transabdominally. FINDINGS: Uterus: The uterus is anteverted and retroflexed. The uterus measures 7.4 x 4.2 x 5.6 cm. The double wall endometrial thickness is 9 mm. There is very mild nonspecific endocervical anechoic fluid. The uterus is smooth in contour and has normal myometrial echogenicity. No visible fibroid. Adnexa: Both ovaries are visualized. There is normal color flow to the adnexa. There is no ovarian torsion. There is a small amount of nonspecific free fluid in the cul-de-sac. A 2.3 x 2.3 x 2.2 cm paraovarian anechoic cyst is seen, with 6 x 5 x 5 mm mural nodule. On the ultrasound examination of 12/05/2022, this measured 2.4 x 1.9 x 2.0 cm, with 7 x 5 x 5 mm mural nodule. Right ovary measures 2.7 x 2.2 x 1.9 cm, volume 5.9 mL. The right ovary contains a 1.7 x 1.7 x 1.6 cm corpus luteum cyst, which requires no imaging follow-up. Left ovary measures 2.5 x 1.8 x 2.1 cm, volume 5.0 mL. US/US pelvic and transvaginal IMPRESSION: 1. There is very mild interim increase in a previously noted complex right paraovarian cyst with mural nodule. Gynecology evaluation and management is recommended. 2. There is a small amount of nonspecific free fluid in the cul-de-sac. 3. This is a very small amount of nonspecific anechoic endocervical fluid.
== END 2023-04-25 13:21 | disposition home or self-care (01) ==
LOC: HO.US 13:20
PROVIDERS: PCP Family Medicine; Visit Provider Advanced Practice Midwife
DX: Q50.5 Embryonic cyst of broad ligament (principal)
CPT/HCPCS: 76830; 76856

== ENCOUNTER 2023-04-26 11:47 | Outpatient (REF) | payer MEDICAID, SELFPAY ==
[2023-04-26 13:25] LABS: Estimated Average Glucose 105 mg/dL; Hemoglobin A1c % 5.3 % (<6.0)
[2023-04-26 13:44] LABS: Alanine Aminotransferase 20 U/L (0-31); Albumin Level 4.2 g/dL (3.5-5.0); Alkaline Phosphatase 68 U/L (39-117); Anion Gap 10 (12-20); Aspartate Amino Transferase 21 U/L (5-31); Bilirubin Total 0.3 mg/dL (0.0-1.0); Blood Urea Nitrogen 13 mg/dL (9-16); Calcium 9.1 mg/dL (8.4-10.2); Carbon Dioxide 26 mmol/L (22-29); Chloride 106 mmol/L (96-108); Cholesterol 189 mg/dL (<200); Estimated Glomerular Filt Rate > 60; Glucose Random 81 mg/dL (60-115); HDL Cholesterol 57 mg/dL (>40); LDL Cholesterol Calculated 120 mg/dL (<100); Potassium 3.8 mmol/L (3.3-5.1); Sodium 138 mmol/L (135-145); Total Protein 7.6 g/dL (6.5-8.0); Triglycerides 63 mg/dL (<150)
[2023-04-26 13:58] LABS: TSH reflex Free T4 1.12 uIU/mL (0.32-4.0)
[2023-04-26 14:42] LABS: Reflex LDLD? No
== END 2023-04-26 11:48 | disposition home or self-care (01) ==
LOC: HO.HHCL 11:47
PROVIDERS: Visit Provider Family Medicine
DX: I10 Essential (primary) hypertension (principal); E66.01 Morbid (severe) obesity due to excess calories; Z68.37 Body mass index [BMI] 37.0-37.9, adult
CPT/HCPCS: 36415; 80053; 80061; 83036; 84443

== ENCOUNTER 2023-05-08 14:16 | Outpatient (AMB) | payer MEDICAID, SELFPAY ==
--- NOTE | 2023-05-08 14:17 | MHC.OFFVIS ---
Intake Intake Visit Reasons: TV Ultrasound results Alligator Trapper Required: Yes Alligator Trapper Language: Egyptian Allergies No Known Allergies [No Known Allergies*] Allergy (Verified 05/08/23 14:17) Medication List - Last Reconciled 05/08/23 by Drea Burden CNM acetaminophen 1,000 mg (2 x 500 mg) PO QID PRN albuterol sulfate 90 mcg/actuation (Proventil HFA) 1 inh inhalation QID ntzmrai-zwbnmdhpywjwi-fjeesrxh 250-250-65 mg (Excedrin Migraine) 1 tab PO Q4-6H PRN stnuvacjco-knbbvltisfcjc-tjxd 50-300-40 mg (Fioricet) 1 cap PO Q8H PRN cholecalciferol (vitamin D3) (Vitamin D3) 50 mcg PO DAILY cyclobenzaprine 10 mg PO BEDTIME PRN famotidine (Acid Creative Producer (famotidine)) 20 mg PO BID fluticasone propion-salmeterol 250-50 mcg/dose (Advair Diskus) 1 ea inhalation BID ibuprofen 600 mg PO Q6H PRN lisinopril 10 mg PO DAILY loratadine (Allergy Relief (loratadine)) 10 mg PO DAILY medroxyprogesterone (Depo-Provera) 150 mg IM Q12W metronidazole 500 mg PO BID 7 days montelukast (Singulair) 10 mg PO BEDTIME ondansetron 4 mg PO Q8H pantoprazole 40 mg PO BID peg-electrolyte soln 420 gram 240 mL PO Q10M plecanatide (Trulance) 3 mg PO DAILY propranolol ER 60 mg PO BEDTIME sumatriptan succinate 50 mg PO Q2-4H PRN topiramate 25 mg PO BEDTIME Is last menstrual period known: Yes Last menstrual period: 05/06/23 Post menopausal: No HPI TV Ultrasound results HPI Details This is a tele visit to discuss patient's follow-up ultrasound that she had done to re-evaluate a paraovarian cyst that was noted in the past on CT scan and also a previous ultrasound she had a follow-up ultrasound done which showed some very subtle changes with the paraovarian cyst and this is what we talked about today. She also has a history of a tubal ligation but she was on Depo-Provera to help suppress her menses because before she was on the Depo her periods were extremely heavy and crampy and clotty. At her last visit it was noted that her cervix was extremely posterior to her symphysis pubis and potential use of a Mirena might be challenging from a placement point of view in that it was difficult to visualize her cervix. Patient was on Depo-Provera for the aforementioned menstrual control but missed her last appointment and was told she would have to reschedule a consultation in order to get back on the Depo. Part of the reason for all of the evaluations as also that she gets pain that is recurring she also has some GI issues which could also be responsible for the pain as well or at least playing a role. [facility] Medical History Simple ovarian cyst Hypertension IBS (irritable bowel syndrome) Fibromyalgia Asthma Migraines Surgical History History of esophagogastroduodenoscopy (EGD) History of loop electrical excision procedure (LEEP) Hx of tubal ligation Family History Mother Diabetes HTN (hypertension) Asthma Brother Asthma Social History Household Members: Children Are you a primary in home caregiver to a significant other at home: No (children 15,10,8 Mother will assist with care) Do you presently have visiting nurse or other home services: No Alcohol intake: never Patient Tobacco Use Status: Never used Tobacco Current occupational status: employed 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 Attending Dr: Drea Burden CNM Ordering Physician: Drea Burden CNM Date of Service: 04/25/23 Procedure(s): US pelvic and transvaginal Accession Number(s): [id number] cc: Drea Burden CNM; Lu Estrada MD~ EXAMINATION: US PELVIS CLINICAL INFORMATION: Follow-up paraovarian cyst; the last menstrual period was on 04/10/2023. COMPARISON: Prior pelvic ultrasound examinations, most recently 12/02/2022. TECHNIQUE: Ultrasound of the pelvis is performed using both transabdominal and transvaginal transducers along with Doppler. Transvaginal imaging is performed due to inadequate visualization transabdominally. FINDINGS: Uterus: The uterus is anteverted and retroflexed. The uterus measures 7.4 x 4.2 x 5.6 cm. The double wall endometrial thickness is 9 mm. There is very mild nonspecific endocervical anechoic fluid. The uterus is smooth in contour and has normal myometrial echogenicity. No visible fibroid. Adnexa: Both ovaries are visualized. There is normal color flow to the adnexa. There is no ovarian torsion. There is a small amount of nonspecific free fluid in the cul-de-sac. A 2.3 x 2.3 x 2.2 cm paraovarian anechoic cyst is seen, with 6 x 5 x 5 mm mural nodule. On the ultrasound examination of 12/05/2022, this measured 2.4 x 1.9 x 2.0 cm, with 7 x 5 x 5 mm mural nodule. Right ovary measures 2.7 x 2.2 x 1.9 cm, volume 5.9 mL. The right ovary contains a 1.7 x 1.7 x 1.6 cm corpus luteum cyst, which requires no imaging follow-up. Left ovary measures 2.5 x 1.8 x 2.1 cm, volume 5.0 mL. US/US pelvic and transvaginal IMPRESSION: 1. There is very mild interim increase in a previously noted complex right paraovarian cyst with mural nodule. Gynecology evaluation and management is recommended. 2. There is a small amount of nonspecific free fluid in the cul-de-sac. 3. This is a very small amount of nonspecific anechoic endocervical fluid. Dictated By: Shadi Andrade MD Signed By: <Electronically signed by Shadi Andrade MD in [place]> 04/27/23 4680 DD/ 1355 TD/TT: Bone Cooking Operator: SHELLY MR#: [id number] : 1985 Acct:[id number] Age/Sex: 37 / F ADM Date: 12/02/22 Loc: HO.US Attending Dr: Drea Burden CNM Ordering Physician: Drea Burden CNM Date of Service: 12/02/22 Procedure(s): US pelvic and transvaginal Accession Number(s): [id number] cc: Drea Burden CNM; Lu Estrada MD~ EXAMINATION: US PELVIS CLINICAL INFORMATION: Pelvic and perineal pain LMP 11/15/2022 COMPARISON: CT scan 06/11/2022, pelvic ultrasound 07/01/2020 and 04/07/2020 TECHNIQUE: Ultrasound of the pelvis is performed using both transabdominal and transvaginal transducers along with Doppler. Transvaginal imaging is performed due to inadequate visualization transabdominally. FINDINGS: Uterus: The uterus is retroverted and measures 7.0 x 3.4 x 4.1 cm. The endometrial thickness is 0.5 mm. There is trace fluid within the endometrial cavity. Adnexa: Right ovary measures 2.1 x 1.7 x 1.3 cm. Volume 2.4 mL. There is a 2.4 x 1.9 x 2.0 cm paraovarian cyst with solid internal nodule measuring 0.7 x 0.5 x 0.5 cm without associated vascularity. Left ovary measures 2.8 x 1.8 x 1.5 cm. Volume 4.0 mL. The left ovary contains a 1.6 x 1.0 x 1.5 cm dominant follicle, a normal finding. This requires no further follow-up. There is no free fluid within the cul-de-sac. US/US pelvic and transvaginal IMPRESSION: 1. Normal retroverted uterus. 2. 2.4 cm right paraovarian cyst with solid internal nodule. Follow-up in 4-6 weeks after the patient's next menses could be obtained. 3. Normal left ovary. Dictated By: Moira Crockett MD Signed By: <Electronically signed by Moira Crockett MD in [place]> 12/05/22 0848 'Patient: Shruti Winters there was a CT scan before that. Assessment & Plan Assessment & Plan (1) Para-ovarian cyst: Comment: Small increased noted review at her follow-up visit and referred to Dr. Jett. Code(s): Q50.5 - Embryonic cyst of broad ligament Plan This is a tele visit to discuss patient's follow-up ultrasound that she had done to re-evaluate a paraovarian cyst that was noted in the past on CT scan and also a previous ultrasound she had a follow-up ultrasound done which showed some very subtle changes with the paraovarian cyst and this is what we talked about today. She also has a history of a tubal ligation but she was on Depo-Provera to help suppress her menses because before she was on the Depo her periods were extremely heavy and crampy and clotty. At her last visit it was noted that her cervix was extremely posterior to her symphysis pubis and potential use of a Mirena might be challenging from a placement point of view in that it was difficult to visualize her cervix. Patient was on Depo-Provera for the aforementioned menstrual control but missed her last appointment and was told she would have to reschedule a consultation in order to get back on the Depo. Part of the reason for all of the evaluations as also that she gets pain that is recurring she also has some GI issues which could also be responsible for the pain as well or at least playing a role. I reviewed the ultrasounds with her and the above history. She has not at all interested in childbearing. Discussed that she needs to have a discussion with Dr. Jett about further evaluation of the paraovarian cyst in what ever form he recommends and to discuss also what she might be interested in terms of suppressing her menses which is her goal. Also the paraovarian cyst may or may not be a component in her pain. Her next visit will be with Dr. Jett to discuss all of the above. Telehealth Telehealth Location of provider rendering services: practice address Location of patient: address on file Patient Identification confirmed using: Name, : Yes Telehealth method: voice only Patient verbally consented to treatment: Yes Patient verbally consented to billing insurance company: Yes Patient informed of any privacy concerns related to visit: Yes Coding Level of Care Code Tele Est Pt Level 3 (38437) Diagnoses Para-ovarian cyst Q50.5 Time Spent (min) 20 Comment 2cr/ 11 speaking w pt ( video did not work),7 charting=20
== END 2023-05-08 15:52 | disposition home or self-care (01) ==
LOC: HO.HWSM 14:16
PROVIDERS: PCP Family Medicine; Visit Provider Advanced Practice Midwife
DX: Q50.5 Embryonic cyst of broad ligament (principal)
CPT/HCPCS: 99213

== ENCOUNTER → 2023-05-08 14:16 | Outpatient (BNVA) | payer MEDICAID, SELFPAY | PROVIDERS: PCP Family Medicine; Visit Provider Advanced Practice Midwife ==

== ENCOUNTER 2023-05-23 07:10 | Day surgery (SDC) | payer MEDICAID, SELFPAY ==
--- NOTE | 2023-05-22 09:48 | HO.ANESPROP2 ---
Documented by User: Tiffany Ricks NP 05/22/23 09:49 HPI - Anesthesia Eval Consult details Narrative: 38yo F for Colonoscopy s/p EGD 06/2022 - large tonsils - Required GA in OR. [facility] Active Problems Active Problems: All Active Problems (Updated 04/28/23 @ 13:19 by Drea Burden CNM) Para-ovarian cyst (Acute) Constipation by delayed colonic transit (Acute) Pelvic pain (Acute) Well woman exam with routine gynecological exam (Acute) Upper abdominal pain (Acute) Acute recurrent tonsillitis (Acute) Mastalgia (Acute) Localized swelling on right hand (Acute) Left sided abdominal pain (Acute) Rotator cuff tendonitis (Acute) Myofascial neck pain (Acute) Bacterial vaginosis (Acute) Chlamydia infection (Acute) Surveillance for Depo-Provera contraception (Acute) Potential exposure to STD (Acute) Hx of abnormal cervical Pap smear (Acute) Menorrhagia (Acute) Hx of tubal ligation (Acute) Depot contraception (Acute) Hemorrhoids (Acute) Numbness and tingling of right upper and lower extremity (Acute) Ganglion cyst of dorsum of right wrist (Acute) Dyspareunia (Acute) Simple ovarian cyst (Acute) Pelvic pain in female (Acute) Encounter to discuss test results (Acute) Mass of joint of right wrist (Acute) Hypertension (Acute) IBS (irritable bowel syndrome) (Acute) Fibromyalgia (Acute) Asthma (Acute) Migraines (Acute) Wrist pain, right (Acute) Abdominal pain (Acute) Right ovarian cyst (Acute) Abdominal cramping (Acute) Encounter to discuss test results (Acute) Anemia (Acute) Surveillance for Depo-Provera contraception (Acute) Irregular menses (Acute) Heavy menstrual bleeding (Acute) GERD (gastroesophageal reflux disease) (Acute) Acromioclavicular joint separation (Acute) Nephrolithiasis (Acute) Left knee pain (Acute) Allergic rhinitis (Acute) Depression with anxiety (Acute) Ovarian cyst (Acute) Past Medical History Medical History Simple ovarian cyst Hypertension IBS (irritable bowel syndrome) Fibromyalgia Asthma Migraines Family History Family History Mother Diabetes HTN (hypertension) Asthma Brother Asthma Family history of problems with anesthesia: No Surgical History Surgical History History of esophagogastroduodenoscopy (EGD) History of loop electrical excision procedure (LEEP) Hx of tubal ligation History of Problems with Anesthesia: No Social History Social History Household Members: Children Are you a primary healthcare prof to a significant other at home: No (children 15,10,8 Mother will assist with care) Do you presently have visiting nurse or other home services: No Alcohol intake: never Patient Tobacco Use Status: Never used Tobacco Use of substances other than those prescribed or required for medical reasons: No Are you DNR?: No Advance Directives: No Advance Directives Information Provided: Yes Current occupational status: employed 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 Sexual orientation: Straight/Heterosexual Gender identity: Female Meds Allergies Allergy/AdvReac Type Severity Reaction Status Date / Time No Known Allergies Allergy Verified 05/08/23 14:17 [No Known Allergies*] Home Medications Medication Instructions Recorded Confirmed Last Taken Type albuterol sulfate 90 mcg/actuation 1 inh inhalation QID 01/15/20 05/08/23 Unknown History aerosol inhaler (Proventil HFA) wsdaqqq-bvxlrnhoxpojc-ijhezypp 250 1 tab PO Q4-6H PRN Headache 01/15/20 05/08/23 Unknown History mg-250 mg-65 mg tablet (Excedrin Migraine) loratadine 10 mg tablet (Allergy 10 mg PO DAILY 01/15/20 05/08/23 Unknown History Relief (loratadine)) montelukast 10 mg tablet 10 mg PO BEDTIME 01/15/20 05/08/23 Unknown History (Singulair) cholecalciferol (vitamin D3) 50 50 mcg PO DAILY 03/16/22 05/08/23 Unknown History mcg (2,000 unit) capsule (Vitamin D3) lisinopril 10 mg tablet 10 mg PO DAILY 03/16/22 05/08/23 Unknown History pantoprazole 40 mg tablet,delayed 40 mg PO BID 03/16/22 05/08/23 Unknown History release fluticasone 250 mcg-salmeterol 50 1 ea inhalation BID 12/02/22 05/08/23 Unknown History mcg/dose blistr powdr for inhalation (Advair Diskus) topiramate 25 mg tablet 25 mg PO BEDTIME 12/02/22 05/08/23 Unknown History Assessment and Plan Assessment Anesthesia Assessment: Chart Reviewed Final Anesthetic Review Family History of Problems with Anesthesia: No History of Problems with Anesthesia: No Documented by User: Elvis Edwards MD 05/23/23 08:14 PMF Past Medical History Medical History Simple ovarian cyst Hypertension IBS (irritable bowel syndrome) Fibromyalgia Asthma Migraines Family History Family History Mother Diabetes HTN (hypertension) Asthma Brother Asthma Surgical History Surgical History History of esophagogastroduodenoscopy (EGD) History of loop electrical excision procedure (LEEP) Hx of tubal ligation Social History Social History Household Members: Children Are you a primary healthcare prof to a significant other at home: No (children 15,10,8 Mother will assist with care) Do you presently have visiting nurse or other home services: No Alcohol intake: never Patient Tobacco Use Status: Never used Tobacco Use of substances other than those prescribed or required for medical reasons: No Are you DNR?: No Advance Directives: No Advance Directives Information Provided: Yes Current occupational status: employed 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 Sexual orientation: Straight/Heterosexual Gender identity: Female Meds Allergies Allergy/AdvReac Type Severity Reaction Status Date / Time No Known Allergies Allergy Verified 05/08/23 14:17 [No Known Allergies*] Home Medications Medication Instructions Recorded Confirmed Last Taken Type albuterol sulfate 90 mcg/actuation 1 inh inhalation QID 01/15/20 05/08/23 Unknown History aerosol inhaler (Proventil HFA) gpgvkzg-ozctomnvlwbjs-jxmtvooo 250 1 tab PO Q4-6H PRN Headache 01/15/20 05/08/23 Unknown History mg-250 mg-65 mg tablet (Excedrin Migraine) loratadine 10 mg tablet (Allergy 10 mg PO DAILY 01/15/20 05/08/23 Unknown History Relief (loratadine)) montelukast 10 mg tablet 10 mg PO BEDTIME 01/15/20 05/08/23 Unknown History (Singulair) cholecalciferol (vitamin D3) 50 50 mcg PO DAILY 03/16/22 05/08/23 Unknown History mcg (2,000 unit) capsule (Vitamin D3) lisinopril 10 mg tablet 10 mg PO DAILY 03/16/22 05/08/23 Unknown History pantoprazole 40 mg tablet,delayed 40 mg PO BID 03/16/22 05/08/23 Unknown History release fluticasone 250 mcg-salmeterol 50 1 ea inhalation BID 12/02/22 05/08/23 Unknown History mcg/dose blistr powdr for inhalation (Advair Diskus) topiramate 25 mg tablet 25 mg PO BEDTIME 12/02/22 05/08/23 Unknown History Exam Airway Mallampati Class: II TM Dist: <=3cm Neck ROM: Full Loose/Missing/Broken Teeth: No Heart: rrr Lungs: cta b/l Assessment and Plan Assessment Anesthesia Assessment: Anesthesia Plan Discussed Final Anesthetic Review NPO: Yes ASA Class: III Final Preanesthetic Review: No Changes in Pt Med Stat, Meds/Allgs Chart Reviewed, Consent Obtained/Reviewed and Anes Risks/Benef Reviewed Patient Risk: Intermediate Procedure Risk: Intermediate Anesthetic Plan Anesthetic Plan: MAC: Disposition: Standard PACU
[2023-05-23 07:53] VITALS: BMI 38.8
[2023-05-23 08:09] VITALS: BP 143/90; PULSE 73; RESP 16; TEMP 37; O2SAT 96
--- NOTE | 2023-05-23 08:09 | P.HPSUR_ITS ---
Pre-Procedural Eval Section A - 24 Hr Update-Section A only Date of Service: 05/23/23 Section B - Complete if H&P > 30 days Chief Complaint: Pelvic and perineal pain,Upper abdominal pain, Relevant Family History (Specify if Yes): No Relevant Social History: None Present Medications: see Short Stay Collaborative assessment Medical History: Significant History (Simple ovarian cyst Hypertension IBS (irritable bowel syndrome) Fibromyalgia Asthma Migraines) History of Previous Operations: Relevant previous surgery/procedure and date(s) (History of esophagogastroduodenoscopy (EGD) History of loop electrical excision procedure (LEEP) Hx of tubal ligation) Allergies: Allergies Allergy/AdvReac Type Severity Reaction Status Date / Time No Known Allergies Allergy Verified 05/08/23 14:17 [No Known Allergies*] Review of Systems Sugical H&P ROS: Negative: Constitution, Cardiovascular, Respiratory, Neurological, Psychiatric, Hem-Onc, Allergic/Immunologic, Gastrointestinal, Genitourinary, Musculoskeletal, Integumentary, Endocrine and Eyes/Ears/Nose/Thro at Exam Surgical H&P Exam: Normal: Heart, Normal: Lungs, Normal: Extremities, Normal: Abdomen, Normal: Skin and Normal: Neurological and Significant Findings: HEENT (tonsils enlarged) Plan Diagnosis/Plan: Unchanged I have reviewed the history and physical and performed a pertinent physical examination on my patient. No changes have occurred unless specified. Time Spent With Patient Time: Total time managing care of this patient today ____ minutes.
[2023-05-23] MEDS: Lactated Ringers 1,000 ML 100 ML IVCONT (08:20)
--- NOTE | 2023-05-23 08:48 | W.PM.OPN ---
Operative Note Operative Note Date of Service: 05/23/23 Narrative: Operative Information Procedure Description: Colonoscopy Indication: abdominal pain Anesthesia: MAC COLONOSCOPY Instrument: Olympus variable stiffness ADULT scope 190L Colonoscopy Monitoring: Vital signs and clinical assessment, continuous EKG monitoring, Pulse oximetry, Carbon Dioxide monitoring and blood pressure monitoring were done throughout the procedure. Colon withdrawal time was 8 minutes. Procedure: The patient was placed in the left lateral decubitis position and pre-procedure medications were administered. After a digital rectal examination of the ano-rectum, the video colonoscope was inserted into the rectum and advanced through the colon to the cecum/TI. The colonoscope was slowly withdrawn in a retrograde panoramic fashion and the colon mucosa was carefully examined including a retroflexed view of the rectum. Findings and interventions are described below. Procedure Difficulty: easy Findings: Terminal Ileum-normal, random bx taken Random bx taken from rigth and left, rectum in separate jars Cecum:normal Right sided retroflexion- normal Ascending Colon: normal Transverse Colon -normal Descending Colon:normal Sigmoid Colon: few small diverticula seen Rectum: Retroflexion with small internal hemorrhoids, grade I Anorectum - normal Colon preparation: [place] Bowel Preparation Scale Right colon; 3 Transverse colon: 2 Left colon; 3 (0 = Unprepared colon segment with mucosa not seen due to solid stool that cannot be cleared. 1 = Portion of mucosa of the colon segment seen, but other areas of the colon segment not well seen due to staining, residual stool and/or opaque liquid. 2 = Minor amount of residual staining, small fragments of stool and/or opaque liquid, but mucosa of colon segment seen well. 3 = Entire mucosa of colon segment seen well with no residual staining, small fragments of stool or opaque liquid) Impression and Post Procedure Diagnosis: internal hemorrhoids diverticular disease Plan: High fiber diet leaflet Avoid straining at stool, epsom salts and sitz bath, anusol supps or cream Repeat Colonoscopy aged 45 years for screening or earlier if clinically indicated Above findings were reviewed with the patient and relevant handouts were provided if indicated.
[2023-05-23 09:24] VITALS: BP 109/69; PULSE 91; RESP 18; TEMP 36.7; O2SAT 99
[2023-05-23 09:42] VITALS: BP 149/97; PULSE 63; RESP 18; TEMP 36.7; O2SAT 99
== END 2023-05-23 10:09 | disposition home or self-care (01) ==
PROVIDERS: PCP Family Medicine; Visit Provider Internal Medicine Gastroenterology
PROC: 0DJD8ZZ Inspection of Lower Intestinal Tract, Via Natural or Artificial Opening Endoscopic (ICD-10-PCS; CPT 45378; principal; 2023-05-23 09:10)
DX: R10.2 Pelvic and perineal pain (principal); R10.12 Left upper quadrant pain; G89.29 Other chronic pain; K57.30 Diverticulosis of large intestine without perforation or abscess without bleeding; K64.0 First degree hemorrhoids; K59.01 Slow transit constipation; K58.9 Irritable bowel syndrome, unspecified; K75.81 Nonalcoholic steatohepatitis (NASH); N83.299 Other ovarian cyst, unspecified side; I10 Essential (primary) hypertension; M79.7 Fibromyalgia; J45.909 Unspecified asthma, uncomplicated; G43.909 Migraine, unspecified, not intractable, without status migrainosus; Z98.890 Other specified postprocedural states; Z98.51 Tubal ligation status; Z79.82 Long term (current) use of aspirin; Z79.51 Long term (current) use of inhaled steroids; Z79.1 Long term (current) use of non-steroidal anti-inflammatories (NSAID); Z79.899 Other long term (current) drug therapy
CPT/HCPCS: 45380; 88305; J2704

== ENCOUNTER → 2023-05-23 07:10 | Outpatient (BNV) | payer MEDICAID, SELFPAY | PROVIDERS: PCP Family Medicine; Visit Provider Internal Medicine Gastroenterology | DX: K57.30 Diverticulosis of large intestine without perforation or abscess without bleeding (principal); K64.0 First degree hemorrhoids | CPT/HCPCS: 45380 ==

== ENCOUNTER 2023-06-02 09:11 | Outpatient (AMB) | payer MEDICAID, SELFPAY ==
--- NOTE | 2023-06-02 09:16 | A.OFFVIS_ITS ---
Intake Vital Signs 06/02/23 09:18 Height 5 ft 6 in Weight 240 lb 4.862 oz BMI 38.8 BP 137/80 Blood Pressure Location Lt brachial Position Sitting Pulse 68 Intake Visit Reasons: S/P Edmonson; Dr. Covarrubias Intake Note: Shruti presents in the office as a follow up colonoscopy. CC: She states that she has nausea and lots of heartburn. No pains in the stomach. Underwater Welder Required: No Allergies No Known Allergies [No Known Allergies*] Allergy (Verified 06/02/23 09:35) HPI S/P Edmonson; Dr. Covarrubias HPI Details 37 yr old f here for f/u RECAP: she has had LUQ pain going into LLQ and left flank she has bloating can be better with soup and water can be worse with foods CT 05/2022---nml EGD 06/2022 Impression/Findings: gastritis possible gastroparesis Path--mild inflammation colonoscopY: with lymphoid aggregates, mild dikverticulosis INTERIM: she does get occ nausea no abdominal pain she has no major issues with constipation but she has to push hard sometimes she has not tried fiber or miralax EXAM: GENERAL: The patient is well developed and nontoxic. VITAL SIGNS:see workflow HEENT: Nonicteric sclerae, PERRLA. Oropharynx with large right sided tonisil and smaller enlarged left tosnil almost blocking back of throat Moist mucous membranes. Conjunctivae appear well perfused. No thyroid mass. CHEST: Chest wall is nontender. HEART: Regular rate and rhythm without murmurs. LUNGS: Clear to auscultation bilaterally. ABDOMEN: Soft, positive bowel sounds, tender LLQ, no organomegaly.no flank tenderness SKIN: No rash, no excessive bruising, petechiae, or purpura. NEUROLOGIC: Cranial nerves II-XII intact without motor/sensory deficit. A/P: 1/ Abdominal pain, uncertain etiology, c ould be IBS, or subacute IBD, with lymphoid aggregates plan; 1/ try miralax and fiber first, if no be tter then trial of apriso --she will call with update [facility] Medical History Simple ovarian cyst Hypertension IBS (irritable bowel syndrome) Fibromyalgia Asthma Migraines Surgical History (Updated 06/02/23 @ 09:36 by CAROLYN Ann) Hx of colonoscopy History of esophagogastroduodenoscopy (EGD) History of loop electrical excision procedure (LEEP) Hx of tubal ligation Family History Mother Diabetes HTN (hypertension) Asthma Brother Asthma Social History Household Members: Children Are you a primary assistant child care teacher to a significant other at home: No (children 15, 10,8 Mother will assist with care) Do you presently have visiting nurse or other home services: No Alcohol intake: never Patient Tobacco Use Status: Never used Tobacco Current occupational status: employed 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 Sexual orientation: Straight/Heterosexual Gender identity: Female Female Reproductive History Menstrual Age of Menarche: 15 Physical Exam Vital Signs: Last Vital Signs Pulse 68 06/02/23 09:18 BP 137/80 06/02/23 09:18 BMI result Body Mass Index 38.8 Assessment & Plan Assessment & Plan (1) Constipation by delayed colonic transit: Code(s): K59.01 - Slow transit constipation Plan see above Medications: New polyethylene glycol 3350 (Miralax) 17 grams PO DAILY 510 grams 2RF psyllium husk (Metamucil) mix into at least 8 oz of water or juice before administering 1 tbsp PO BID 660 grams 2RF Coding Level of Care Code Est Pt Level 3 (77244) Diagnoses Constipation by delayed colonic transit K59.01
[2023-06-02 09:18] VITALS: BP 137/80; PULSE 68; BMI 38.8
== END 2023-06-02 10:26 | disposition home or self-care (01) ==
PROVIDERS: PCP Family Medicine; Referring Provider Family Medicine; Visit Provider Internal Medicine Gastroenterology
DX: K59.01 Slow transit constipation (principal)
CPT/HCPCS: 99213

== ENCOUNTER → 2023-06-02 09:11 | Outpatient (BNVA) | payer MEDICAID, SELFPAY | PROVIDERS: PCP Family Medicine; Visit Provider Internal Medicine Gastroenterology | DX: K59.01 Slow transit constipation (principal) | CPT/HCPCS: 99212 ==

== ENCOUNTER 2023-08-09 08:58 | Outpatient (REF) | payer MEDICAID, SELFPAY ==
[2023-08-10 02:26] LABS: CT PCR NOT DETECTED (Not Detect.); NG PCR NOT DETECTED (Not Detect.)
== END 2023-08-09 08:59 | disposition home or self-care (01) ==
LOC: HO.LNP 08:58
PROVIDERS: PCP Family Medicine; Visit Provider Obstetrics & Gynecology
DX: Q50.5 Embryonic cyst of broad ligament (principal); N93.9 Abnormal uterine and vaginal bleeding, unspecified; Z32.02 Encounter for pregnancy test, result negative
CPT/HCPCS: 0353U; 81025; 99212

== ENCOUNTER 2023-08-09 08:58 | Outpatient (AMB) | payer MEDICAID, SELFPAY ==
[2023-08-09 09:07] VITALS: BP 122/70; BMI 37.1
--- NOTE | 2023-08-09 09:07 | MHC.OFFVIS ---
Vital Signs 08/09/23 09:07 Height 5 ft 6 in Weight 230 lb BMI 37.1 BP 122/70 Intake Visit Reasons: paraovarian Cyst [employer] P[employer] Supervisor Required: No Information Interpreted: non-clinical & clinical Senior Tech Manufacturing Engineering: Senior Tech Manufacturing Engineering Present (Aidyn) Allergies No Known Allergies [No Known Allergies*] Allergy (Verified 08/09/23 09:08) Is last menstrual period known: Yes Last menstrual period: 07/19/23 Post menopausal: No HPI Comments Details: Presenting referred from Carla Burden CNM regarding paraovarian cyst seen on pelvic ultrasound. In addition the patient has been on Depo-Provera for heavy menstrual cycles last Depo-Provera was in 03/18 and since then has not been off Depo-Provera and is amenorrheic Pelvic ultrasound done in 04/25/2023 showed the following: Uterus: The uterus is anteverted and retroflexed. The uterus measures 7.4 x 4.2 x 5.6 cm. The double wall endometrial thickness is 9 mm. There is very mild nonspecific endocervical anechoic fluid. The uterus is smooth in contour and has normal myometrial echogenicity. No visible fibroid. Adnexa: Both ovaries are visualized. There is normal color flow to the adnexa. There is no ovarian torsion. There is a small amount of nonspecific free fluid in the cul-de-sac. A 2.3 x 2.3 x 2.2 cm paraovarian anechoic cyst is seen, with 6 x 5 x 5 mm mural nodule. On the ultrasound examination of 12/05/2022, this measured 2.4 x 1.9 x 2.0 cm, with 7 x 5 x 5 mm mural nodule. Right ovary measures 2.7 x 2.2 x 1.9 cm, volume 5.9 mL. The right ovary contains a 1.7 x 1.7 x 1.6 cm corpus luteum cyst, which requires no imaging follow-up. Left ovary measures 2.5 x 1.8 x 2.1 cm, volume 5.0 mL. Last co testing in 11/16 was negative PFSH Medical History Simple ovarian cyst Hypertension IBS (irritable bowel syndrome) Fibromyalgia Asthma Migraines Surgical History Hx of colonoscopy History of esophagogastroduodenoscopy (EGD) History of loop electrical excision procedure (LEEP) Hx of tubal ligation Family History Mother Diabetes HTN (hypertension) Asthma Brother Asthma Social History Household Members: Children Are you a primary healthcare management to a significant other at home: No (children 15,10,8 Mother will assist with care) Do you presently have visiting nurse or other home services: No Alcohol intake: never Patient Tobacco Use Status: Never used Tobacco Current occupational status: employed 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 Sexual orientation: Straight/Heterosexual Gender identity: Female Female Reproductive History Menstrual Age of Menarche: 15 Date of last menstrual period: 07/19/23 control method: permanent sterilization Date of last pap smear: 10/26/22 (negative) Review of Systems Const All systems reviewed & are unremarkable except as noted in HPI and below Physical Exam Vital Signs: Last Vital Signs BP 122/70 08/09/23 09:07 BMI result Body Mass Index 37.1 General: Yes no CVA tenderness External Female Exam: normal external appearance and normal appearance of the urethra Speculum Exam - Vagina: normal appearance of the vagina, normal palpation, no lesions and no masses Speculum Exam - Cervix: normal appearance of the cervix, normal palpation, no lesions, no masses and nontender Bimanual exam- vagina & uterus: normal bimanual exam, normal palpation, uterine size normal, normal palpation, uterine shape normal, No Cervical tenderness present and non-tender Bimanual Exam- Adnexa, other: normal adnexae Back/Spine/Pelvis Back: no CVA tenderness Results AMB Test Urine AMB Test Urine Negative Last Edit by CAROLYN Fletcher on 08/09/23 09:24 Assessment & Plan Assessment & Plan (1) Para-ovarian cyst: Comment: Complex right paraovarian cyst History of bilateral tubal ligation using silastic bands in 2013 Code(s): Q50.5 - Embryonic cyst of broad ligament Category: Medical Plan: UPT done in the office was negative, GC/CT collected. Discussed with the patient the complex adnexal cyst by ultrasound. Discussed with the patient the Ultrasound findings, the main limitation of transvaginal ultrasonography alone as a diagnostic tool to distinguish benign from malignant masses relates to its lack of specificity and low positive predictive value for cancer. The differential diagnosis discussed with the patient includes the following but not limited to: benign and malignant gynecological and non-gynecological causes. pelvic MRI ordered . Instructions given the patient to schedule MRI follow-up appointment within 2 weeks. All questions were answered & the patient verbalized understanding and agreed with the plan. (2) Abnormal uterine bleeding: Code(s): N93.9 - Abnormal uterine and vaginal bleeding, unspecified Category: Medical Plan: Discussed with the patient the options of treatment for heavy menstrual cycle including Lysteda, control pills, Mirena IUD, endometrial ablation and hysterectomy. All pros, cons, risks and benefits if each option was discussed with the patient and the patient decided to think about it and get back to us since she has been on Depo-Provera for a long period of time and since she came off Depo-Provera has been amenorrheic. Instructions given the patient to call in case of recurrence of her heavy menstrual bleeding preop All questions answered, the patient verbalized understanding Orders: Orders AMB HCG Urine Test Today Z32.02 - Encounter for test, result negative MR pelvis wo/w con Today Q50.5 - Embryonic cyst of broad ligament CT NG by PCR Today Q50.5 - Embryonic cyst of broad ligament Coding Level of Care Code Est Pt Level 3 (79547) Diagnoses Para-ovarian cyst Q50.5 Abnormal uterine bleeding N93.9
== END 2023-08-09 09:36 | disposition home or self-care (01) ==
LOC: HO.HWS 08:58
PROVIDERS: PCP Family Medicine; Referring Provider Family Medicine; Visit Provider Obstetrics & Gynecology
DX: Q50.5 Embryonic cyst of broad ligament (principal); N93.9 Abnormal uterine and vaginal bleeding, unspecified; Z32.02 Encounter for pregnancy test, result negative
CPT/HCPCS: 99213

== ENCOUNTER 2023-08-31 09:14 | Outpatient (AMB) | payer MEDICAID, SELFPAY ==
[2023-08-31 09:20] VITALS: BP 136/78; BMI 35.8
--- NOTE | 2023-08-31 09:20 | MHC.OFFVIS ---
Vital Signs 08/31/23 09:20 Height 5 ft 6 in Weight 222 lb BMI 35.8 BP 136/78 Intake Visit Reasons: ? bv Information Interpreted: clinical only Logistics Manager: Logistics Manager Present Allergies No Known Allergies [No Known Allergies*] Allergy (Verified 08/31/23 09:21) Medication List - Last Reconciled 08/31/23 by Drea Burden CNM acetaminophen 1,000 mg (2 x 500 mg) PO QID PRN albuterol sulfate 90 mcg/actuation (Proventil HFA) 1 inh inhalation QID nzrxkfi-hdgteakzeksui-baqndxcl 250-250-65 mg (Excedrin Migraine) 1 tab PO Q4-6H PRN ozyjjxlaxa-jiomedhedxfuy-hulr 50-300-40 mg (Fioricet) 1 cap PO Q8H PRN cholecalciferol (vitamin D3) (Vitamin D3) 50 mcg PO DAILY cyclobenzaprine 10 mg PO BEDTIME PRN famotidine (Acid Actuarial Assistant (famotidine)) 20 mg PO BID fluticasone propion-salmeterol 250-50 mcg/dose (Advair Diskus) 1 ea inhalation BID ibuprofen 600 mg PO Q6H PRN lisinopril 10 mg PO DAILY loratadine (Allergy Relief (loratadine)) 10 mg PO DAILY montelukast (Singulair) 10 mg PO BEDTIME ondansetron 4 mg PO Q8H pantoprazole 40 mg PO BID peg-electrolyte soln 420 gram 240 mL PO Q10M plecanatide (Trulance) 3 mg PO DAILY polyethylene glycol 3350 (Miralax) 17 grams PO DAILY propranolol ER 60 mg PO BEDTIME psyllium husk (Metamucil) 1 tbsp PO BID sumatriptan succinate 50 mg PO Q2-4H PRN topiramate 25 mg PO BEDTIME Is last menstrual period known: Yes Last menstrual period: 08/20/23 HPI HPI ? bv: Details: Here because she has been having some discharge of the vaginal itching she says it is more when she gets hot and sweaty she has been sweeping floors or doing something like that. She does not have any vaginal odor she says. She says she is lost weight is in the summer she just eats less in is more active and she thinks her metabolism gets better she is concerned about her blood pressure she said it was high this morning at home so she took her medicine but she does not have a follow-up visit with her primary scheduled. When I questioned her it seems she did not know when she had ever had fasting blood work or had seen her doctor for full and exam. At the very end of the visit she shared that she is waiting for an MRI be done in September check on her ovarian cyst and she will following up with Dr. Jett for that. [facility] Medical History Simple ovarian cyst Hypertension IBS (irritable bowel syndrome) Fibromyalgia Asthma Migraines Surgical History Hx of colonoscopy History of esophagogastroduodenoscopy (EGD) History of loop electrical excision procedure (LEEP) Hx of tubal ligation Family History Mother Diabetes HTN (hypertension) Asthma Brother Asthma Social History Household Members: Children Are you a primary primary care physician to a significant other at home: No (children 15,10,8 Mother will assist with care) Do you presently have visiting nurse or other home services: No Alcohol intake: never Patient Tobacco Use Status: Never used Tobacco Current occupational status: employed 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 Sexual orientation: Straight/Heterosexual Gender identity: Female Female Reproductive History Menstrual Age of Menarche: 15 Duration of menses: 3-5 days Date of last menstrual period: 08/20/23 control method: permanent sterilization Total pregnancies: 4 Full term: 3 Date of last pap smear: 10/26/22 (negative,previous pap,2021 neg.) History of abnormal pap smear: Yes (2008 (leep)) Physical Exam Vital Signs: Last Vital Signs BP 136/78 08/31/23 09:20 BMI result Body Mass Index 35.8 Other: Her vagina appears within normal limits cervix wants upward and was challenging to visualize but appeared healthy bimanual not done as visit was just to assess for vaginal discharge other concerns were mentioned the patient as the visit was ending. External Female Exam: normal external appearance and normal appearance of the urethra Speculum Exam - Vagina: normal appearance of the vagina and normal vaginal discharge Speculum Exam - Cervix: normal appearance of the cervix and Cervical os closed Assessment & Plan Assessment & Plan (1) Vaginal itching: Code(s): N89.8 - Other specified noninflammatory disorders of vagina Category: Medical Plan Testing was done for gonorrhea chlamydia trichomoniasis Gardnerella and Rain. I offered to give the patient Monistat cream for vaginal itching as her symptoms a line more with yeast when she is hot and sweaty from cleaning or other activities but she said she had been using that and still sometimes feels itchy so given that visually she appeared healthy we will await results of any tests to see if treatment for anything is warranted. At the very end of the visit the patient was sharing that she has concerns about being seen at the [facility] for anything entry specialist related and it is because she has a family member who works in medical records in this building I did share that we are a different practice and not connected at all to the [facility]. I try to explain that her primary care provider's connected with the [facility] and is in fact in his 2nd floor building but she does not have concerns about that it is more anything entry specialist related. I urged her to make an appointment with her primary care provider and find out when she has her full annual exam and fasting blood work because she can not remember ever having been tested for diabetes and other fasting labs. I did congratulate her on her weight loss and discussed how this is a very important factor in helping to control her overall health and blood pressure. Discussed diet she said sometimes when she gets discomfort from ovarian cyst she feels a decreased appetite. Discussed that if she is going to eat lightly she should choose healthy foods. I also suggested that she needs to just follow-up with Dr. Jett about the ovarian cyst and follow those appointments and we did not look at those issues today. Orders: Orders CT NG by PCR Today Z11.3 - Encounter for screening for infections with a predominantly sexual mode of transmission Bacterial Vaginosis Panel Today N89.8 - Other specified noninflammatory disorders of vagina Coding Level of Care Code Est Pt Level 3 (25464) Diagnoses Vaginal itching N89.8
== END 2023-08-31 09:55 | disposition home or self-care (01) ==
LOC: HO.HWSM 09:14
PROVIDERS: PCP Family Medicine; Visit Provider Advanced Practice Midwife
DX: N89.8 Other specified noninflammatory disorders of vagina (principal)
CPT/HCPCS: 99213

== ENCOUNTER 2023-08-31 09:14 | Outpatient (REF) | payer MEDICAID, SELFPAY ==
[2023-09-01 08:47] LABS: Bacterial Vaginosis PCR POSITIVE (Negative); Candida Group PCR NOT DETECTED (Not Detect); Candida glab krusei PCR NOT DETECTED (Not Detect); Trichomonas vaginalis PCR NOT DETECTED (Not Detect)
[2023-09-01 09:06] LABS: CT PCR NOT DETECTED (Not Detect.); NG PCR NOT DETECTED (Not Detect.)
== END 2023-08-31 09:15 | disposition home or self-care (01) ==
LOC: HO.LAB 09:14
PROVIDERS: PCP Family Medicine; Visit Provider Advanced Practice Midwife
DX: N89.8 Other specified noninflammatory disorders of vagina (principal); Z11.3 Encounter for screening for infections with a predominantly sexual mode of transmission
CPT/HCPCS: 0352U; 0353U; 99212

== ENCOUNTER 2023-08-31 14:57 | Outpatient (REF) | payer MEDICAID, SELFPAY ==
[2023-08-31 16:52] LABS: TSH reflex Free T4 0.64 uIU/mL (0.32-4.0)
== END 2023-08-31 14:58 | disposition home or self-care (01) ==
LOC: HO.HHCL 14:57
PROVIDERS: Visit Provider Nurse Practitioner Primary Care
DX: R61 Generalized hyperhidrosis (principal); G47.9 Sleep disorder, unspecified
CPT/HCPCS: 36415; 84443

== ENCOUNTER 2023-09-13 15:11 | Emergency (ER) | payer MEDICAID, SELFPAY ==
--- NOTE | ~2023-09-13 | CT_ITS ---
EXAMINATION: CT ABDOMEN AND PELVIS WITHOUT CONTRAST CLINICAL INFORMATION: Left upper quadrant pain. COMPARISON: 06/11/2022 TECHNIQUE: Multidetector volumetric imaging was performed from the superior aspect of the liver through the pubic symphysis. Sagittal and coronal reformatted images were obtained on the technologist's workstation. This CT examination was performed using dose optimization techniques as appropriate, variously including the following: *Automated exposure control *Adjustment of mA and/or kV according to patient size (this includes techniques or standardized protocols for targeted exams where dose is matched to indication/reason for exam; i.e. extremities or head) *Use of iterative reconstruction technique DLP: 799 mGy-cm FINDINGS: LUNG BASES: The visualized lung bases are unremarkable. LIVER, GALLBLADDER, AND BILIARY TREE: The noncontrast liver is normal in size and contour. No biliary ductal dilatation is present. The gallbladder is unremarkable with no evidence of radiopaque gallstones, gallbladder wall thickening, or obvious pericholecystic inflammatory changes. PANCREAS: Unremarkable. SPLEEN: Unremarkable. ADRENAL GLANDS: Unremarkable. KIDNEYS AND URETERS: The kidneys are symmetric in size. No hydronephrosis, hydroureter, or calculi seen. No perinephric stranding. BLADDER: Decompressed. GASTROINTESTINAL TRACT: No small bowel obstruction. Retrocecal appendix is within normal limits. ABDOMINAL WALL: No significant hernia is appreciated. LYMPH NODES: No bulky lymphadenopathy. VASCULAR: Normal caliber abdominal aorta. PELVIC VISCERA: Bilateral tubal ligation clips. OSSEOUS STRUCTURES: No destructive bone lesions. CT/CT abdomen pelvis wo IV con IMPRESSION: No acute abnormality in the abdomen or pelvis.
[2023-09-13 15:26] VITALS: BP 140/90; PULSE 72; RESP 18; TEMP 36.9; O2SAT 98; BMI 35.4
--- NOTE | 2023-09-13 15:30 | ED.ABDPAIN ---
HPI - Abdominal Pain General Chief Complaint: Abdominal Pain Stated Complaint: L sideupper abd pain Time Seen by Provider: 09/13/23 16:03 Source: patient Mode of arrival: ambulatory Limitations: no limitations History of Present Illness HPI narrative: Patient is a 38-year-old female who presents to the emergency department for evaluation. She reports 2 weeks with intermittent left upper quadrant abdominal pain and mild nausea, symptoms typically lasting a couple of hours. Since yesterday the pain has been more severe and constant. She admits to having soft stools 2-3 times daily which is baseline for her. When asked about symptoms she states she can feel a hardness from her P, it is ?too hot?, denies frequency urgency, or hematuria. Denies possibility of citing that she had a tubal ligation. She admits to having a history of IBS, reports that she was taking dicyclomine in the past but this had been discontinued quite some time ago after transitioning her GI provider, and she is currently only taking antinausea medicine. Denies chest pain, shortness of breath, upper respiratory symptoms, constipation, back pain. Related Data Home Medications ?Medication ?Instructions ?Recorded ?Confirmed albuterol sulfate 90 mcg/actuation 1 inh inhalation QID 01/15/20 08/31/23 aerosol inhaler (Proventil HFA) lkdbrui-vxdqgbshktfoa-algrpliv 250 1 tab PO Q4-6H PRN Headache 01/15/20 08/31/23 mg-250 mg-65 mg tablet (Excedrin Migraine) loratadine 10 mg tablet (Allergy 10 mg PO DAILY 01/15/20 08/31/23 Relief (loratadine)) montelukast 10 mg tablet 10 mg PO BEDTIME 01/15/20 08/31/23 (Singulair) cholecalciferol (vitamin D3) 50 50 mcg PO DAILY 03/16/22 08/31/23 mcg (2,000 unit) capsule (Vitamin D3) lisinopril 10 mg tablet 10 mg PO DAILY 03/16/22 08/31/23 pantoprazole 40 mg tablet,delayed 40 mg PO BID 03/16/22 08/31/23 release fluticasone 250 mcg-salmeterol 50 1 ea inhalation BID 12/02/22 08/31/23 mcg/dose blistr powdr for inhalation (Advair Diskus) topiramate 25 mg tablet 25 mg PO BEDTIME 12/02/22 08/31/23 Previous Rx's ?Medication ?Instructions ?Recorded cyclobenzaprine 10 mg tablet 10 mg PO BEDTIME PRN muscle spasm 05/24/20 #3 tabs famotidine 20 mg tablet (Acid 20 mg PO BID #60 tabs 06/23/21 System Programmer (famotidine)) otutxduzsw-xjfbmntinqjph-oiiourvl 1 cap PO Q8H PRN pain #3 caps 08/09/21 50 mg-300 mg-40 mg capsule (Fioricet) sumatriptan succinate 50 mg tablet 50 mg PO Q2-4H PRN migraine 03/24/22 headache #14 tabs acetaminophen 500 mg tablet 1,000 mg (2 x 500 mg) PO QID PRN 08/25/22 pain #30 tabs ibuprofen 600 mg tablet 600 mg PO Q6H PRN pain #20 tabs 08/25/22 ondansetron 4 mg disintegrating 4 mg PO Q8H #10 tabs 12/02/22 tablet peg-electrolyte solution 420 gram 240 ml PO Q10M #4,000 mL 12/02/22 oral solution plecanatide 3 mg tablet (Trulance) 3 mg PO DAILY #30 tabs 12/02/22 propranolol 60 mg capsule,24 60 mg PO BEDTIME #90 caps 12/19/22 hr,extended release polyethylene glycol 3350 17 17 g PO DAILY #510 grams 06/02/23 gram/dose oral powder (Miralax) psyllium husk 3.4 gram/5.4 gram 1 tbsp PO BID #660 grams 06/02/23 oral powder (Metamucil) metronidazole 500 mg tablet 500 mg PO BID 7 days #14 tabs 09/04/23 sucralfate 1 gram tablet (Carafate) 1 g PO TID #20 tabs 09/13/23 Allergies Allergy/AdvReac Type Severity Reaction Status Date / Time No Known Allergies Allergy Verified 09/13/23 15:29 [No Known Allergies*] Review of Systems Review of Systems Yes all other systems are reviewed and are negative [facility] Past Medical History Attestation statement: The following information was validated with the patient. Source: old records reviewed Medical History Simple ovarian cyst Hypertension IBS (irritable bowel syndrome) Fibromyalgia Asthma Migraines Surgical History Hx of colonoscopy History of esophagogastroduodenoscopy (EGD) History of loop electrical excision procedure (LEEP) Hx of tubal ligation Family History Family History Mother Diabetes HTN (hypertension) Asthma Brother Asthma Social History Social History Household Members: Children Are you a primary dog daycare provider to a significant other at home: No (children 15,10,8 Mother will assist with care) Do you presently have visiting nurse or other home services: No Alcohol intake: never Patient Tobacco Use Status: Never used Tobacco Smoked in Last 30 Days: No Use of substances other than those prescribed or required for medical reasons: Yes Substance Use Type: Marijuana Advance Directives: No Advance Directives Information Provided: No Do you have a plan to hurt others: No Plan Current occupational status: employed 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 No acute distress.?Normal affect. Eyes: Pupils equal, round and reactive to light.? ENT: Pharynx normal.?? Neck: Normal inspection.? Neck supple.?? CVS: Heart sounds normal. Normal heart rate and rhythm.? Pulses normal.?? Respiratory: No respiratory distress.? Lung sounds clear to auscultation bilaterally?? Abdomen: Soft with mild right upper quadrant/epigastric pain upon palpation, negative Miller sign. Moderate left upper quadrant pain upon palpation. No CVA tenderness. Normoactive bowel sounds. ? Skin: Skin warm and dry.? Normal skin color.? ?? Extremities: No lower extremity edema. Neuro: Moves all extremities spontaneously. Sensation intact bilaterally. Ambulates with normal steady gait. Course Course Course Narrative: This is an RME done by YONG Long: Additional HPI, ROS, PE not included below will be deferred to primary provider. 38 yo f presents w/ LUQ pain w/ radiation to b/l flanks. Reports she has a hx of kidney stones. Denies urinary sx. Direct bedded to ED Reevaluation(s) Reevaluation #1: Symptoms with significant improvement after GI cocktail, CT abdomen pelvis without acute pathology, no compelling evidence of urinary tract infection. Will discharge patient home, given prescription for Carafate and recommended follow-up with GI, symptoms at this time most likely secondary to gastritis. Stable for discharge. Tolerating oral intake. Medical Decision Making Medical Decision Making MDM Narrative: Patient is a 38-year-old female with past medical history of ovarian cyst, hypertension, IBS, fibromyalgia, asthma, migraines, nephrolithiasis, GERD who presents to the emergency department for evaluation of left upper quadrant abdominal pain and nausea as per HPI. Overall she appears well, nontoxic, afebrile. She is without tachycardia tachypnea or hypoxia. She is speaking clear full sentences. Abdominal examination is notable for diffuse upper abdominal tenderness upon palpation primarily over the left upper quadrant without CVA tenderness. No rigidity or guarding. Will obtain CBC to evaluate for leukocytosis/ anemia, CMP and lipase to evaluate for abnormal electrolytes /abnormal renal function/ abnormal hepatic/biliary function, EKG and troponin to evaluate for ischemia/ACS. Chest x-ray to evaluate for consolidation/ infiltrate/ mass/ pulmonary congestion and Urinalysis. Will trial GI cocktail for symptom management Differential Diagnosis Differential Diagnoses: The differential diagnosis associated with the presentation includes (Gastritis, acute pancreatitis, cholecystitis, muscular pain) Admission/Observation Consideration of admission/observation: Escalation of care including admission/observation considered Lab Data [facility] Lab Attestation statement: I reviewed the patient's lab results. CBC is without leukocytosis, anemia, or thrombocytopenia. Electrolytes overall unremarkable. No DESTINEE. LFTs and lipase within normal range. Urinalysis without microscopic hematuria, not consistent with urinary tract infection. HCG is negative. 09/13/23 15:45 09/13/23 15:45 Labs: Lab Results 09/13/23 09/13/23 Range/Units 15:44 15:45 WBC 6.0 (4.8-10.8) X10*3/uL RBC 4.84 (4.20-5.50) X10*6/uL Hgb 13.7 (12.0-16.0) g/dl Hct 41.0 (37.0-47.0) % MCV 84.7 (80.0-98.0) fL MCH 28.3 (27.0-33.0) pg MCHC 33.4 (31.0-35.0) g/dl RDW 14.6 (11.0-16.0) % Plt Count 261 (160-400) X10*3/uL MPV 10.7 (9.4-12.3) fL Immature Gran % (Auto) 0.3 (0.0-0.4) % Neut % (Auto) 51.6 (45-73) % Lymph % (Auto) 39.2 (20-40) % Frederick % (Auto) 6.7 (2-11) % Eos % (Auto) 1.5 (0-4) % Baso % (Auto) 0.7 (0-2) % Lymph # (Auto) 2.4 (1.2-4.9) X10*3/uL Frederick # (Auto) 0.4 (0.1-1.2) X10*3/uL Eos # (Auto) 0.1 (0.0-0.4) X10*3/uL Baso # (Auto) 0.0 (0.0-0.2) X10*3/uL Abs Immat Gran (auto) 0.02 (0.00-0.03) X10*3/uL Absolute Neuts (auto) 3.1 (2.0-8.3) x10*3/uL Absolute Nucleated RBC 0.000 (0.0-0.012) X10*3/uL Nucleated RBC % (auto) 0.0 (0.0-0.2) /100WBC Sodium 139 (135-145) mmol/L Potassium 4.3 (3.3-5.1) mmol/L Chloride 110 H (96-108) mmol/L Carbon Dioxide 21 L (22-29) mmol/L Anion Gap 12 (12-20) BUN 10 (9-16) mg/dL Creatinine 0.89 (0.5-1.4) mg/dL Estim Creat Clear Calc 104.0 Estimated GFR > 60 Random Glucose 99 (60-115) mg/dL Calcium 9.2 (8.4-10.2) mg/dL Magnesium 2.1 (1.6-2.6) mg/dL Total Bilirubin 0.7 (0.0-1.0) mg/dL AST 22 (5-31) U/L ALT 13 (0-31) U/L Alkaline Phosphatase 64 (39-117) U/L Total Protein 8.1 H (6.5-8.0) g/dL Albumin 4.4 (3.5-5.0) g/dL Lipase 10 (8-78) U/L Urine Color Yellow Urine Appearance Clear Urine pH 5.5 (5.0-9.0) Ur Specific Horton 1.025 (1.005-1.025) Urine Protein Negative (Neg-Trace) mg/dL Urine Glucose (UA) Negative (Negative) mg/dL Urine Ketones Negative (Negative) mg/dL Urine Blood Negative (Negative) Urine Nitrite Negative (Negative) Ur Leukocyte Esterase Small (1+) H (Negative) Urine RBC 0-2 (0-2) /HPF Urine WBC 0-5 (0-5) /HPF Ur Squamous Epith Cells 3-5 (0-2) /HPF Urine Bacteria None Seen (None Seen) Hyaline Casts 0-2 (0-2) /LPF Urine Test NEGATIVE (NEGATIVE) Radiology Impression Discussion of test interpretation with radiology: I have reviewed the radiologist's reading. Radiologist Impression: CT/CT abdomen pelvis wo IV con IMPRESSION: No acute abnormality in the abdomen or pelvis. External Record Review External record reviewed: Outpatient record Reviewed office visit GI Dr. Covarrubias 08/14/2023, is being evaluated for left upper quadrant pain and bloating, symptoms often secondary to constipation by delayed colonic transit versus IBS versus subacute IBD, advised for her to trial MiraLax and fiber, and if symptoms were no better she may trial mesalamine Medications Administered Discontinued Medications Generic Name Dose Route Start Last Admin Trade Name Freq PRN Reason Stop Dose Admin Al Hydroxide/Mg Hydroxide 30 ml 09/13/23 16:15 09/13/23 16:41 Magnesium Hydrox/Alum Hydrox 30 Ml Oral.Susp PO 09/13/23 16:16 30 ml ONCE ONE Administration Famotidine 20 mg 09/13/23 16:15 09/13/23 16:43 Famotidine/Pf 20 Mg/2 Ml Vial IVPUSH 09/13/23 16:16 20 mg ONCE ONE Administration Sodium Chloride 1,000 mls @ 999 mls/hr 09/13/23 16:30 09/13/23 18:12 Ns IV 09/13/23 17:30 Infused .Q1H1M SURESH Infusion Lidocaine HCl 15 ml 09/13/23 16:15 09/13/23 16:41 Lidocaine Hcl Viscous 2 % 15 Ml Solution MUCOUS MEM 09/13/23 16:16 15 ml ONCE ONE Administration Discharge Plan Discharge Clinical Impression: Abdominal pain Patient Disposition: Home, Self-Care Additional Instructions: Please follow-up with your GI doctor for persistent symptoms. Trial sulfate as prescribed. Return back to emergency department with new or worsening symptoms or concerns. Prescriptions: New sucralfate [Carafate] 1 gram tablet 1 g PO TID Qty: 20 0RF No Action famotidine [Acid System Programmer (famotidine)] 20 mg tablet 20 mg PO BID Qty: 60 6RF propranolol 60 mg capsule,extended release 24 hr 60 mg PO BEDTIME Qty: 90 1RF metronidazole 500 mg tablet 500 mg PO BID 7 Days Qty: 14 0RF Rx Instructions: Take with food, Avoid alcohol and vinegar products cyclobenzaprine 10 mg tablet 10 mg PO BEDTIME PRN (Reason: muscle spasm) Qty: 3 0RF dmcvemcirb-cdngunvhxftzh-mgad [Fioricet] 50-300-40 mg capsule 1 cap PO Q8H PRN (Reason: pain) Qty: 3 0RF acetaminophen 500 mg tablet 1,000 mg PO QID PRN (Reason: pain) Qty: 30 0RF ibuprofen 600 mg tablet 600 mg PO Q6H PRN (Reason: pain) Qty: 20 0RF albuterol sulfate [Proventil HFA] 90 mcg/actuation HFA aerosol inhaler 1 inh inhalation QID montelukast [Singulair] 10 mg tablet 10 mg PO BEDTIME loratadine [Allergy Relief (loratadine)] 10 mg tablet 10 mg PO DAILY Excedrin Migraine 250-250-65 mg tablet 1 tab PO Q4-6H PRN (Reason: Headache) lisinopril 10 mg tablet 10 mg PO DAILY cholecalciferol (vitamin D3) [Vitamin D3] 50 mcg (2,000 unit) capsule 50 mcg PO DAILY pantoprazole 40 mg tablet,delayed release (DR/EC) 40 mg PO BID sumatriptan succinate 50 mg tablet 50 mg PO Q2-4H PRN (Reason: migraine headache) Qty: 14 3RF Rx Instructions: do not exceed 4 doses per 24 hrs fluticasone propion-salmeterol [Advair Diskus] 250-50 mcg/dose blister with device 1 ea inhalation BID topiramate 25 mg tablet 25 mg PO BEDTIME Trulance 3 mg tablet 3 mg PO DAILY Qty: 30 2RF peg-electrolyte soln 420 gram recon soln 240 ml PO Q10M Qty: 4000 0RF Rx Instructions: until fecal effluent is clear ondansetron 4 mg tablet,disintegrating 4 mg PO Q8H Qty: 10 0RF polyethylene glycol 3350 [Miralax] 17 gram/dose powder 17 g PO DAILY Qty: 510 2RF Metamucil 3.4 gram/5.4 gram powder 1 tbsp PO BID Qty: 660 2RF Rx Instructions: mix into at least 8 oz of water or juice before administering Referrals: Lu Estrada MD [Primary Care Provider] - Print Language: Togolese
[2023-09-13 15:52] LABS: MANUAL DIFF FLAG NO
[2023-09-13 15:55] LABS: Appearance Urine Clear; Color Urine Yellow; Glucose Urine UA Negative (Negative); Leukocyte Esterase Urine Small (1+) (Negative); Nitrite Urine Negative (Negative); PH 5.5 (5.0-9.0); Specific Gravity - Urine 1.025 (1.005-1.025); UMIC TRIGGER UACC YES; Urine Blood Negative (Negative); Urine Ketones Negative (Negative); Urine Protein Negative (Neg-Trace)
[2023-09-13 15:56] LABS: UPreg QC Valid YES; Urine Pregnancy NEGATIVE (NEGATIVE)
[2023-09-13 15:59] LABS: Basophils Percent Auto 0.7 % (0-2); Eosinophils Absolute Auto 0.1 X10*3/uL (0.0-0.4); Eosinophils Percent Auto 1.5 % (0-4); Hemoglobin 13.7 g/dl (12.0-16.0); Imm Gran Abs Auto 0.02 X10*3/uL (0.00-0.03); Imm Gran Pct Auto 0.3 % (0.0-0.4); Lymphocytes Absolute Auto 2.4 X10*3/uL (1.2-4.9); Lymphocytes Percent Auto 39.2 % (20-40); Mean Corpuscular HGB Conc 33.4 g/dl (31.0-35.0); Mean Corpuscular Hemoglobin 28.3 pg (27.0-33.0); Mean Corpuscular Volume 84.7 fL (80.0-98.0); Mean Platelet Volume 10.7 fL (9.4-12.3); Monocytes Absolute Auto 0.4 X10*3/uL (0.1-1.2); Monocytes Percent Auto 6.7 % (2-11); Neutrophils Absolute Auto 3.1 x10*3/uL (2.0-8.3); Neutrophils Percent Auto 51.6 % (45-73); Platelet Count 261 X10*3/uL (160-400); Red Blood Count 4.84 X10*6/uL (4.20-5.50); Red Cell Distribution Width 14.6 % (11.0-16.0)
[2023-09-13 16:12] LABS: Alanine Aminotransferase 13 U/L (0-31); Albumin Level 4.4 g/dL (3.5-5.0); Alkaline Phosphatase 64 U/L (39-117); Anion Gap 12 (12-20); Aspartate Amino Transferase 22 U/L (5-31); Bilirubin Total 0.7 mg/dL (0.0-1.0); Blood Urea Nitrogen 10 mg/dL (9-16); Calcium 9.2 mg/dL (8.4-10.2); Carbon Dioxide 21 mmol/L (22-29); Chloride 110 mmol/L (96-108); Estimated Glomerular Filt Rate > 60; Glucose Random 99 mg/dL (60-115); Lipase 10 U/L (8-78); Magnesium 2.1 mg/dL (1.6-2.6); Potassium 4.3 mmol/L (3.3-5.1); Sodium 139 mmol/L (135-145); Total Protein 8.1 g/dL (6.5-8.0)
[2023-09-13 16:15] LABS: Bacteria Urine None Seen (None Seen); Hyaline Casts Urine 0-2 /LPF (0-2); RBC Urine 0-2 /HPF (0-2); UACC Culture Trigger YES; WBC Urine 0-5 /HPF (0-5)
[2023-09-13] MEDS: Magnesium Hydrox/Alum Hydrox 30 ML ORAL.SUSP PO (16:41)
[2023-09-13] MEDS: Lidocaine HCl Viscous 2 % 15 ML SOLUTION MUCOUS MEM (16:41)
[2023-09-13] MEDS: Famotidine/PF 20 MG/2 ML VIAL IVPUSH (16:43)
[2023-09-13] MEDS: 0.9 % Sodium Chloride 1,000 ML 999 ML IV (16:45)
[2023-09-13 18:00] VITALS: BP 148/82; PULSE 66; TEMP 36.7; O2SAT 98
[2023-09-13 18:51] VITALS: BP 148/82; PULSE 66; RESP 18; TEMP 36.7; O2SAT 98
== END 2023-09-13 18:51 | disposition home or self-care (01) ==
PROVIDERS: Physician Assistant; Emergency Provider Internal Medicine; PCP Family Medicine
DX: R10.12 Left upper quadrant pain (principal); R11.0 Nausea; M79.7 Fibromyalgia; Z79.899 Other long term (current) drug therapy
CPT/HCPCS: 36415; 74176; 80053; 81001; 81003; 81025; 83690; 83735; 85025; 87086; 96361; 96374; 99284

== ENCOUNTER 2023-11-08 12:50 | Emergency (ER) | payer MEDICAID, SELFPAY ==
[2023-11-08 13:09] VITALS: BP 167/99; PULSE 89; RESP 16; TEMP 37.2; O2SAT 97; BMI 34.7
--- NOTE | 2023-11-08 13:09 | ED_ITS ---
HPI - General Adult General Chief complaint: Headache Stated complaint: Head pressure, chills Time Seen by Provider: 11/08/23 13:19 Source: patient Mode of arrival: ambulatory Limitations: no limitations History of Present Illness ED Provider: JACOB CORDOVA narrative: 38 yo female with PMH of migraines takes excedrin as needed notes gradual onset L sided headache starting at rest Monday also with chills. Denies n/v/d, dysuria, cough, fevers. Does endorse body aches. A week prior to this did have URI. She has normal ROM of neck. No travels, procedures. No tick bites. MD complaint: headache, chills, body aches Onset (ago): day(s) (5) Location: head Radiation: non-radiation Severity: moderate Quality: aching Pain Consistency: constant Relieving factors: none Exacerbating factors: other (bright light noise) Associated symptoms: fever/chills, headaches and other (myalgias) Treatments prior to arrival: none Related Data Home Medications ?Medication ?Instructions ?Recorded ?Confirmed albuterol sulfate 90 mcg/actuation 1 inh inhalation QID 01/15/20 08/31/23 aerosol inhaler (Proventil HFA) fyfomwg-fhotwmkeslmzj-idqjaxpd 250 1 tab PO Q4-6H PRN Headache 01/15/20 08/31/23 mg-250 mg-65 mg tablet (Excedrin Migraine) loratadine 10 mg tablet (Allergy 10 mg PO DAILY 01/15/20 08/31/23 Relief (loratadine)) montelukast 10 mg tablet 10 mg PO BEDTIME 01/15/20 08/31/23 (Singulair) cholecalciferol (vitamin D3) 50 50 mcg PO DAILY 03/16/22 08/31/23 mcg (2,000 unit) capsule (Vitamin D3) lisinopril 10 mg tablet 10 mg PO DAILY 03/16/22 08/31/23 pantoprazole 40 mg tablet,delayed 40 mg PO BID 03/16/22 08/31/23 release fluticasone 250 mcg-salmeterol 50 1 ea inhalation BID 12/02/22 08/31/23 mcg/dose blistr powdr for inhalation (Advair Diskus) topiramate 25 mg tablet 25 mg PO BEDTIME 12/02/22 08/31/23 Previous Rx's ?Medication ?Instructions ?Recorded cyclobenzaprine 10 mg tablet 10 mg PO BEDTIME PRN muscle spasm 05/24/20 #3 tabs famotidine 20 mg tablet (Acid 20 mg PO BID #60 tabs 06/23/21 Laminating Machine Offbearer (famotidine)) abqhuvpdgy-nlfsfzlbvdbwm-okpqvzsz 1 cap PO Q8H PRN pain #3 caps 08/09/21 50 mg-300 mg-40 mg capsule (Fioricet) sumatriptan succinate 50 mg tablet 50 mg PO Q2-4H PRN migraine 03/24/22 headache #14 tabs acetaminophen 500 mg tablet 1,000 mg (2 x 500 mg) PO QID PRN 08/25/22 pain #30 tabs ibuprofen 600 mg tablet 600 mg PO Q6H PRN pain #20 tabs 08/25/22 ondansetron 4 mg disintegrating 4 mg PO Q8H #10 tabs 12/02/22 tablet peg-electrolyte solution 420 gram 240 ml PO Q10M #4,000 mL 12/02/22 oral solution plecanatide 3 mg tablet (Trulance) 3 mg PO DAILY #30 tabs 12/02/22 propranolol 60 mg capsule,24 60 mg PO BEDTIME #90 caps 12/19/22 hr,extended release polyethylene glycol 3350 17 17 g PO DAILY #510 grams 06/02/23 gram/dose oral powder (Miralax) psyllium husk 3.4 gram/5.4 gram 1 tbsp PO BID #660 grams 06/02/23 oral powder (Metamucil) metronidazole 500 mg tablet 500 mg PO BID 7 days #14 tabs 09/04/23 acetaminophen 325 mg tablet 650 mg (2 x 325 mg) PO Q4H PRN 09/13/23 (Tylenol) pain #30 tabs sucralfate 1 gram tablet (Carafate) 1 g PO TID #20 tabs 09/13/23 zpwddsblzt-xqitswqrfvnay-kvdnkqcc 1 tab PO Q6H PRN pain #16 tabs 11/08/23 50 mg-325 mg-40 mg tablet cyclobenzaprine 10 mg tablet 10 mg PO TID PRN muscle spasm #20 11/08/23 tabs Allergies Allergy/AdvReac Type Severity Reaction Status Date / Time No Known Allergies Allergy Verified 11/08/23 13:12 [No Known Allergies*] Review of Systems 2 Review of Systems: Constitutional : No Fever, pos Chills, No Fatigue ENT/Mouth : No sore throat, No Rhinorrhea Eyes: No Eye Pain, No Swelling, No Redness Cardiovascular : No Chest Pain, No SOB, No Dyspnea on Exertion Respiratory : No Cough, No Sputum Gastrointestinal : No Nausea, No Vomiting, No Diarrhea, No abdominal Pain Genitourinary : No Dysuria, No Urinary Frequency, No Hematuria, Musculoskeletal : No joint pain, pos Myalgias, No Joint Swelling Skin : No Skin Lesions, No rash Neuro : No Weakness, No Numbness, No Dizziness, positive Headache Psych : No Anxiety/Panic, No Depression All other systems reviewed and are negative [facility] Past Medical History Attestation statement: The following information was validated with the patient. Source: old records reviewed Medical History Simple ovarian cyst Hypertension IBS (irritable bowel syndrome) Fibromyalgia Asthma Migraines Surgical History Hx of colonoscopy History of esophagogastroduodenoscopy (EGD) History of loop electrical excision procedure (LEEP) Hx of tubal ligation Family History Family History Mother Diabetes HTN (hypertension) Asthma Brother Asthma Social History Social History Household Members: Children Are you a primary rn coronary care unit to a significant other at home: No (children 15,10,8 Mother will assist with care) Do you presently have visiting nurse or other home services: No Alcohol intake: never Patient Tobacco Use Status: Never used Tobacco Substance Use Type: Marijuana Current occupational status: employed 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 Oriented X3. No acute distress. Eyes: Pupils equal, round and reactive to light. ENT: Pharynx normal. Neck: Normal inspection. Neck supple. normal ROM no meningeal signs CVS: Normal heart rate and rhythm. Pulses normal. Respiratory: No respiratory distress. Breath sounds normal. Abdomen: Soft and nontender. Skin: Skin warm and dry. Normal skin color. Normal skin turgor. Extremities: No lower extremity edema. No calf ttp Neuro: Oriented X 3. No motor deficit. No sensory deficit. Course Reevaluation(s) Reevaluation #1: This is an RME done by YONG Long: Additional HPI, ROS, PE not included below will be deferred to primary provider. 38 year old F with pmh of migraines, recurrent tonsilitis, myofascial neck pain, rotator cuff tendonitis, complaining of L sided head and neck pain (severity:10/) since monday associated with fever, chills, sob. States pain is constant and nothing has made it better, and it does not fill like her typical migraines. Denies cp, sore throat, vision changes. Appearance: Alert.? Oriented X3.? No acute cardiopulmonary distress distress.? Head: Normocephalic, atraumatic, no step-offs or deformities Neck: Normal inspection.? Neck supple.? CVS: Pulses normal.? Respiratory: No respiratory distress.? Skin: ? Normal skin color. Extremities: 5/5 strength to bilateral upper and lower extremities Neuro: Oriented X 3.? No motor deficit.? No sensory deficit. Medications Administered Discontinued Medications Generic Name Dose Route Start Last Admin Trade Name Freq PRN Reason Stop Dose Admin Acetaminophen/Butalbital/Caffeine 1 tab 11/08/23 13:51 11/08/23 13:55 Butalb/Acetamin/Caff 50/325/40 Tablet PO 11/08/23 13:52 1 tab ONCE ONE Administration Cyclobenzaprine HCl 10 mg 11/08/23 13:51 11/08/23 13:55 Cyclobenzaprine Hcl 10 Mg Tablet PO 11/08/23 13:52 10 mg ONCE ONE Administration Medical Decision Making Medical Decision Making MDM Narrative: 38 yo female with body aches, chills, headaches not toxic, afebrile here - well appearing, no meningeal signs based off symptoms suspect viral syndrome she has a normal ROM doubt meningitis and symptoms x 4 days. At this time supportive medications, viral panel and reassess. Differential Diagnosis Differential Diagnoses: The differential diagnosis associated with the presentation includes viral syndrome, migraine headaches, tension headache Admission/Observation Consideration of admission/observation: Escalation of care including admission/observation considered Lab Data MDM Lab Attestation statement: I reviewed the patient's lab results. 11/08/23 13:28 11/08/23 13:28 Labs: Lab Results 11/08/23 11/08/23 Range/Units 13:26 13:28 WBC 3.6 L (4.8-10.8) X10*3/uL RBC 4.58 (4.20-5.50) X10*6/uL Hgb 13.1 (12.0-16.0) g/dl Hct 39.2 (37.0-47.0) % MCV 85.6 (80.0-98.0) fL MCH 28.6 (27.0-33.0) pg MCHC 33.4 (31.0-35.0) g/dl RDW 14.3 (11.0-16.0) % Plt Count 229 (160-400) X10*3/uL MPV 10.7 (9.4-12.3) fL Immature Gran % (Auto) 0.0 (0.0-0.4) % Neut % (Auto) 53.0 (45-73) % Lymph % (Auto) 39.1 (20-40) % [place] % (Auto) 6.3 (2-11) % Eos % (Auto) 0.8 (0-4) % Baso % (Auto) 0.8 (0-2) % Lymph # (Auto) 1.4 (1.2-4.9) X10*3/uL [place] # (Auto) 0.2 (0.1-1.2) X10*3/uL Eos # (Auto) 0.0 (0.0-0.4) X10*3/uL Baso # (Auto) 0.0 (0.0-0.2) X10*3/uL Abs Immat Gran (auto) 0.00 (0.00-0.03) X10*3/uL Absolute Neuts (auto) 1.9 L (2.0-8.3) x10*3/uL Absolute Nucleated RBC 0.000 (0.0-0.012) X10*3/uL Nucleated RBC % (auto) 0.0 (0.0-0.2) /100WBC Sodium 138 (135-145) mmol/L Potassium 3.7 (3.3-5.1) mmol/L Chloride 106 (96-108) mmol/L Carbon Dioxide 23 (22-29) mmol/L Anion Gap 13 (12-20) BUN 8 L (9-16) mg/dL Creatinine 1.06 (0.5-1.4) mg/dL Estim Creat Clear Calc 86.3 Estimated GFR 59 Random Glucose 99 (60-115) mg/dL Calcium 9.6 (8.4-10.2) mg/dL Total Bilirubin 0.7 (0.0-1.0) mg/dL AST 23 (5-31) U/L ALT 16 (0-31) U/L Alkaline Phosphatase 64 (39-117) U/L Total Protein 7.6 (6.5-8.0) g/dL Albumin 4.4 (3.5-5.0) g/dL COVID-19 (ARAMIS) Negative (Negative) COVID-19 Clin Com See Note Influenza Type A (LETITIA) Negative (Negative) Influenza Type B (LETITIA) Negative (Negative) Influenza A & B Note See Note S. pyogenes GrpA LETITIA Negative (Negative) External Record Review External record reviewed: Outpatient record Prescription Management I considered prescription management with: Other Discharge Plan Discharge Clinical Impression: Acute viral syndrome Migraine Qualifiers: Migraine type: unspecified Status migrainosus presence: without status migrainosus Intractability: not intractable Qualified Code(s): G43.909 - Migraine, unspecified, not intractable, without status migrainosus Patient Disposition: Home, Self-Care Instructions: Migraine Headache (ED), Viral Syndrome (ED) Additional Instructions: you cannot mix fioricet and excedrin together your labs are suggestive of a viral syndrome thought the covid and flu are negative stay hydrated, return for fevers, vomiting, worsening symptoms Prescriptions: New cyclobenzaprine 10 mg tablet 10 mg PO TID PRN (Reason: muscle spasm) Qty: 20 0RF lpxbmzlkxe-axppuazwbtyvv-iitd 50-325-40 mg tablet 1 tab PO Q6H PRN (Reason: pain) Qty: 16 0RF No Action famotidine [Acid Laminating Machine Offbearer (famotidine)] 20 mg tablet 20 mg PO BID Qty: 60 6RF propranolol 60 mg capsule,extended release 24 hr 60 mg PO BEDTIME Qty: 90 1RF metronidazole 500 mg tablet 500 mg PO BID 7 Days Qty: 14 0RF Rx Instructions: Take with food, Avoid alcohol and vinegar products cyclobenzaprine 10 mg tablet 10 mg PO BEDTIME PRN (Reason: muscle spasm) Qty: 3 0RF gpcwuqisrw-fzwashwrtkrox-oxtl [Fioricet] 50-300-40 mg capsule 1 cap PO Q8H PRN (Reason: pain) Qty: 3 0RF acetaminophen 500 mg tablet 1,000 mg PO QID PRN (Reason: pain) Qty: 30 0RF ibuprofen 600 mg tablet 600 mg PO Q6H PRN (Reason: pain) Qty: 20 0RF sucralfate [Carafate] 1 gram tablet 1 g PO TID Qty: 20 0RF acetaminophen [Tylenol] 325 mg tablet 650 mg PO Q4H PRN (Reason: pain) Qty: 30 0RF albuterol sulfate [Proventil HFA] 90 mcg/actuation HFA aerosol inhaler 1 inh inhalation QID montelukast [Singulair] 10 mg tablet 10 mg PO BEDTIME loratadine [Allergy Relief (loratadine)] 10 mg tablet 10 mg PO DAILY Excedrin Migraine 250-250-65 mg tablet 1 tab PO Q4-6H PRN (Reason: Headache) lisinopril 10 mg tablet 10 mg PO DAILY cholecalciferol (vitamin D3) [Vitamin D3] 50 mcg (2,000 unit) capsule 50 mcg PO DAILY pantoprazole 40 mg tablet,delayed release (DR/EC) 40 mg PO BID sumatriptan succinate 50 mg tablet 50 mg PO Q2-4H PRN (Reason: migraine headache) Qty: 14 3RF Rx Instructions: do not exceed 4 doses per 24 hrs fluticasone propion-salmeterol [Advair Diskus] 250-50 mcg/dose blister with device 1 ea inhalation BID topiramate 25 mg tablet 25 mg PO BEDTIME Trulance 3 mg tablet 3 mg PO DAILY Qty: 30 2RF peg-electrolyte soln 420 gram recon soln 240 ml PO Q10M Qty: 4000 0RF Rx Instructions: until fecal effluent is clear ondansetron 4 mg tablet,disintegrating 4 mg PO Q8H Qty: 10 0RF polyethylene glycol 3350 [Miralax] 17 gram/dose powder 17 g PO DAILY Qty: 510 2RF Metamucil 3.4 gram/5.4 gram powder 1 tbsp PO BID Qty: 660 2RF Rx Instructions: mix into at least 8 oz of water or juice before administering Print Language: Prydeinig
[2023-11-08 13:31] LABS: MANUAL DIFF FLAG NO
[2023-11-08 13:37] LABS: Basophils Percent Auto 0.8 % (0-2); Eosinophils Percent Auto 0.8 % (0-4); Hematocrit 39.2 % (37.0-47.0); Hemoglobin 13.1 g/dl (12.0-16.0); Lymphocytes Absolute Auto 1.4 X10*3/uL (1.2-4.9); Lymphocytes Percent Auto 39.1 % (20-40); Mean Corpuscular HGB Conc 33.4 g/dl (31.0-35.0); Mean Corpuscular Hemoglobin 28.6 pg (27.0-33.0); Mean Corpuscular Volume 85.6 fL (80.0-98.0); Mean Platelet Volume 10.7 fL (9.4-12.3); Monocytes Absolute Auto 0.2 X10*3/uL (0.1-1.2); Monocytes Percent Auto 6.3 % (2-11); Neutrophils Absolute Auto 1.9 x10*3/uL (2.0-8.3); Platelet Count 229 X10*3/uL (160-400); Red Blood Count 4.58 X10*6/uL (4.20-5.50); Red Cell Distribution Width 14.3 % (11.0-16.0); White Blood Count 3.6 X10*3/uL (4.8-10.8)
[2023-11-08 13:41] LABS: IDNOW Serial# 08D9AD1C; Strep A Nucleic Acid Negative (Negative)
[2023-11-08 13:47] LABS: COVID-19 Test Negative (Negative); IDNOW Serial# 152EDE1D; IDNOW Serial# 9DB6401D; Influenza A Negative (Negative); Influenza B2 Negative (Negative)
[2023-11-08 13:48] LABS: Alanine Aminotransferase 16 U/L (0-31); Albumin Level 4.4 g/dL (3.5-5.0); Alkaline Phosphatase 64 U/L (39-117); Anion Gap 13 (12-20); Aspartate Amino Transferase 23 U/L (5-31); Bilirubin Total 0.7 mg/dL (0.0-1.0); Blood Urea Nitrogen 8 mg/dL (9-16); Calcium 9.6 mg/dL (8.4-10.2); Carbon Dioxide 23 mmol/L (22-29); Chloride 106 mmol/L (96-108); Creatinine Clr Calc Pharmacy 86.3; Estimated Glomerular Filt Rate 59; Glucose Random 99 mg/dL (60-115); Potassium 3.7 mmol/L (3.3-5.1); Sodium 138 mmol/L (135-145); Total Protein 7.6 g/dL (6.5-8.0)
[2023-11-08] MEDS: Butalb/Acetamin/Caff 50/325/40 TABLET 1 TAB PO (13:55)
[2023-11-08] MEDS: Cyclobenzaprine HCl 10 MG TABLET PO (13:55)
[2023-11-08 14:30] VITALS: BP 170/99; PULSE 72; RESP 18; TEMP 36.4; O2SAT 97
== END 2023-11-08 14:31 | disposition home or self-care (01) ==
PROVIDERS: Physician Assistant; Emergency Provider Emergency Medicine; PCP Family Medicine
DX: B34.9 Viral infection, unspecified (principal); G43.909 Migraine, unspecified, not intractable, without status migrainosus; M79.10 Myalgia, unspecified site; Z11.52 Encounter for screening for COVID-19; Z79.899 Other long term (current) drug therapy
CPT/HCPCS: 80053; 85025; 87502; 87635; 87651; 99283; 99284

== ENCOUNTER 2023-11-17 09:58 | Outpatient (REF) | payer MEDICAID, SELFPAY ==
--- NOTE | ~2023-11-17 | MR_ITS ---
EXAMINATION: MRI PELVIS WITH AND WITHOUT CONTRAST CLINICAL INFORMATION: Q50.5 - Embryonic cyst of broad ligament COMPARISON: Pelvic ultrasound 04/25/2023 TECHNIQUE: Multiple routine MRI sequences through the pelvis were obtained before and after the uneventful administration of 10 mL of Gadavist gadolinium-based IV contrast. FINDINGS: UTERUS: Anteverted and retroflexed uterus has a normal configuration and is normal in size. Endometrium is uniform and measures 1 cm in thickness. Junctional zone is normal in signal and thickness. No focal uterine mass seen. CERVIX: Unremarkable. VAGINA: Unremarkable. OVARIES: A 2.5 cm exophytic right ovarian cystic lesion, previously 2.3 cm, which demonstrates a small enhancing solid nodule measuring 0.4 cm which is T2 hypointense, 10:46. This is been present since 05/05/2020 where it measured 2.2 cm. Lack of diffusion-weighted imaging limits evaluation for the diffusion signal of the nodule. A 2.3 cm left ovarian cyst new from prior with a single thin internal septation without enhancing solid components. KIDNEYS AND VISUALIZED UPPER ABDOMEN: Two normally positioned kidneys are seen. No hydronephrosis. VISUALIZED GI TRACT: Unremarkable. BLADDER: Unremarkable. PELVIC FREE FLUID: No free fluid or ascites. LYMPH NODES: No pathologically enlarged lymph nodes. OSSEOUS STRUCTURES: No acute or suspicious osseous abnormalities. SOFT TISSUES: Unremarkable. MR/MR pelvis wo/w con IMPRESSION: 1. Again seen is a 2.5 cm exophytic right ovarian cystic lesion with a 0.4 cm T2 hypointense enhancing solid nodule, which demonstrates minimal growth over time. Evaluation is limited by lack of diffusion-weighted imaging, therefore this is an O-RADS MRI score 0 lesion, incomplete evaluation. Recommend continued gynecologic evaluation and management, and repeat MRI with diffusion-weighted sequences and dynamic contrast-enhanced sequences could be obtained for further delineation. 2. A 2.3 cm left ovarian cyst new from prior with a single thin internal septation without enhancing solid components, likely benign. Electronically signed by: Vale Lynne MD 12/18/2023 12:27 PM EDT
[2023-11-17] MEDS: gadobutroL 10 ML VIAL IVPUSH (10:39)
== END 2023-11-17 09:59 | disposition home or self-care (01) ==
LOC: HO.MRI 09:58
PROVIDERS: PCP Family Medicine; Visit Provider Obstetrics & Gynecology
DX: Q50.5 Embryonic cyst of broad ligament (principal)
CPT/HCPCS: 72197; A9585

== ENCOUNTER 2023-12-05 10:28 | Outpatient (AMB) | payer MEDICAID, SELFPAY ==
[2023-12-05 10:29] VITALS: BP 120/70; BMI 34.4
--- NOTE | 2023-12-05 10:29 | MHC.OFFVIS ---
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 Information Interpreted: clinical only [employer] Firer/Fireman: [employer] Firer/Fireman Present Allergies No Known Allergies [No Known Allergies*] Allergy (Verified 12/05/23 10:43) Medication List - Last Reconciled 12/05/23 by Drea Burden CNM acetaminophen 1,000 mg (2 x 500 mg) PO QID PRN albuterol sulfate 90 mcg/actuation (Proventil HFA) 1 inh inhalation QID evivazc-weeqryhrinurp-ncodhjmz 250-250-65 mg (Excedrin Migraine) 1 tab PO Q4-6H PRN bjqmetitai-qntifmvkahfpu-cirv 50-300-40 mg (Fioricet) 1 cap PO Q8H PRN cholecalciferol (vitamin D3) (Vitamin D3) 50 mcg PO DAILY cyclobenzaprine 10 mg PO TID PRN famotidine (Acid Senior Windows Engineer (famotidine)) 20 mg PO BID fluticasone propion-salmeterol 250-50 mcg/dose (Advair Diskus) 1 ea inhalation BID ibuprofen 600 mg PO Q6H PRN lisinopril 10 mg PO DAILY loratadine (Allergy Relief (loratadine)) 10 mg PO DAILY montelukast (Singulair) 10 mg PO BEDTIME ondansetron 4 mg PO Q8H pantoprazole 40 mg PO BID polyethylene glycol 3350 (Miralax) 17 grams PO DAILY propranolol ER 60 mg PO BEDTIME psyllium husk (Metamucil) 1 tbsp PO BID sucralfate (Carafate) 1 g PO TID sumatriptan succinate 50 mg PO Q2-4H PRN topiramate 25 mg PO BEDTIME Is last menstrual period known: Yes Last menstrual period: 12/01/23 HPI HPI 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 She says she had an MRI to follow-up on a paraovarian cyst, and she has a follow-up appointment next month with Dr. Jett to review the results of it she also has an appointment with her GI doctor to follow-up on testing that he did that was follow-up to IBS. 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 Overall she is feeling good right now Her periods came back they are not quite as heavy as they were in the past before she had been on the Depo-Provera she says they came back at the end of July looking at her phone records some periods were 7 days this last 1 was 4-5. She had been missing her periods for very long time when she was on Depo-Provera and then afterwards. [facility] Medical History Simple ovarian cyst Hypertension IBS (irritable bowel syndrome) Fibromyalgia Asthma Migraines Surgical History Hx of colonoscopy History of esophagogastroduodenoscopy (EGD) History of loop electrical excision procedure (LEEP) Hx of tubal ligation Family History Mother Diabetes HTN (hypertension) Asthma Brother Asthma Social History Household Members: Children Are you a primary critical care unit manager to a significant other at home: No (children 15,10,8 Mother will assist with care) Do you presently have visiting nurse or other home services: No Alcohol intake: never Patient Tobacco Use Status: Never used Tobacco Substance Use Type: Marijuana Current occupational status: employed 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 Sexual orientation: Straight/Heterosexual Gender identity: Female Female Reproductive History Menstrual Age of Menarche: 15 Duration of menses: 3-5 days Date of last menstrual period: 12/01/23 control method: permanent sterilization Total pregnancies: 4 Full term: 3 Date of last pap smear: 10/26/22 (negative,10/21/21,negative) History of abnormal pap smear: Yes (2008 LEEP) Physical Exam Vital Signs: Last Vital Signs BP 120/70 12/05/23 10:29 BMI result Body Mass Index 34.4 Const General: healthy appearing, comfortable, no acute distress, well developed and alert Nutritional Appearance: average body habitus Orientation/consciousness: patient oriented x3 Limitations: no limitations HEENT Head: Yes normocephalic Neck Neck: Yes normal visual inspection Chest Chest palpation & inspection: normal inspection of the chest Breast/axilla inspection: normal inspection of the breasts and normal inspection of the axillae Breast/axilla palpation: normal palpation of the breasts and normal palpation of the axillae Resp Effort & Inspection: normal respiratory effort GI Inspection: Yes normal to inspection, No Abdominal wall edema and No distended Palpation (GI): Soft to palpation and nontender Other: External exam within normal limits vagina is pink and moist cervix pink clear smooth status post LEEP no abnormal discharge scant end of menses spotting uterus small midposition mobile nontender good tone with Kegel. No adnexal tenderness. General: Yes bladder normal to palpation External Female Exam: normal external appearance and normal appearance of the urethra Speculum Exam - Vagina: normal appearance of the vagina, normal palpation and normal vaginal discharge Speculum Exam - Cervix: normal appearance of the cervix, normal palpation and nontender Bimanual exam- vagina & uterus: normal bimanual exam, normal palpation, uterine size normal, bladder normal to palpation, consistency normal, normal palpation, uterine mobility normal, uterine shape normal, No Cervical tenderness present, non-tender and no cervical motion tenderness Bimanual Exam- Adnexa, other: normal adnexae, no masses, normal and No adnexal tenderness Neuro General: patient oriented x3 Assessment & Plan Assessment & Plan (1) Para-ovarian cyst: Comment: Complex right paraovarian cyst History of bilateral tubal ligation using silastic bands in 2013 Code(s): Q50.5 - Embryonic cyst of broad ligament Category: Medical (2) Well woman exam with routine gynecological exam: Code(s): Z01.419 - Encounter for gynecological examination (general) (routine) without abnormal findings Category: Medical (3) Potential exposure to STD: Code(s): Z20.2 - Contact with and (suspected) exposure to infections with a predominantly sexual mode of transmission Category: Medical (4) Hx of abnormal cervical Pap smear: Comment: History of abnormal Pap since 2005;--2008 had high-grade HIMANSHU & had LEEP; Paps since then have been normal 10/20/2021 Pap is negative with negative HPV.; 10/25/2022 Pap is negative with negative HPV. Code(s): Z87.42 - Personal history of other diseases of the female genital tract Category: Medical Plan Patient is here for her Cota annual exam. She says she had an MRI to follow-up on a paraovarian cyst, and she has a follow-up appointment next month with Dr. Jett to review the results of it she also has an appointment with her GI doctor to follow-up on testing that he did that was follow-up to IBS. 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 Overall she is feeling good right now Her periods came back they are not quite as heavy as they were in the past before she had been on the Depo-Provera she says they came back at the end of July looking at her phone records some periods were 7 days this last 1 was 4-5. She had been missing her periods for very long time when she was on Depo-Provera and then afterwards. Reviewed all these issues and ensured that she does have follow-up for all the issues with her various doctors. She is feeling pretty good on the new higher does of the blood pressure medicine. She is sexually active she is open to testing for STIs but no particular worries even though her last 2 Pap smears were negative and reportedly all negative since her LEEP in 2008 she preferred get a Pap smear just to be sure. Coding Level of Care Code Est Pt Prev Care [id number]) Diagnoses Para-ovarian cyst Q50.5 Well woman exam with routine gynecological exam Z01.419 Potential exposure to STD Z20.2 Hx of abnormal cervical Pap smear Z87.42
== END 2023-12-05 11:23 | disposition home or self-care (01) ==
PROVIDERS: PCP Family Medicine; Visit Provider Advanced Practice Midwife
DX: Q50.5 Embryonic cyst of broad ligament (principal); Z01.419 Encounter for gynecological examination (general) (routine) without abnormal findings; Z20.2 Contact with and (suspected) exposure to infections with a predominantly sexual mode of transmission; Z87.42 Personal history of other diseases of the female genital tract
CPT/HCPCS: 99395

== ENCOUNTER 2023-12-05 10:28 | Outpatient (REF) | payer MEDICAID, SELFPAY ==
[2023-12-06 07:30] LABS: CT PCR NOT DETECTED (Not Detect.); NG PCR NOT DETECTED (Not Detect.)
[2023-12-06 11:26] LABS: Bacterial Vaginosis PCR NEGATIVE (Negative); Candida Group PCR NOT DETECTED (Not Detect); Candida glab krusei PCR NOT DETECTED (Not Detect); Trichomonas vaginalis PCR NOT DETECTED (Not Detect)
[2023-12-07 10:54] LABS: HPV mRNA E6/E7 Not Detected (Not Detected)
== END 2023-12-05 10:29 | disposition home or self-care (01) ==
LOC: HO.LAB 10:28
PROVIDERS: PCP Family Medicine; Visit Provider Advanced Practice Midwife
DX: Z01.419 Encounter for gynecological examination (general) (routine) without abnormal findings (principal); N89.8 Other specified noninflammatory disorders of vagina; Z20.2 Contact with and (suspected) exposure to infections with a predominantly sexual mode of transmission
CPT/HCPCS: 0352U; 36415; 87491; 87591; 87624; 88175; 99395

== ENCOUNTER 2023-12-27 10:17 | Outpatient (REF) | payer MEDICAID, SELFPAY ==
[2023-12-27 12:24] LABS: Lactate Dehydrogenase 180 U/L (122-220)
[2023-12-29 10:40] LABS: CA-125 6 U/mL (<35); Carbohydrate Antigen 19-9 22 U/mL (<34)
[2023-12-29 13:02] LABS: Alpha Fetoprotein 1.6 ng/mL
[2024-01-04 19:28] LABS: Inhibin B 13 pg/mL
== END 2023-12-27 10:18 | disposition home or self-care (01) ==
LOC: HO.LAB 10:17
PROVIDERS: PCP Family Medicine; Visit Provider Obstetrics & Gynecology
DX: N83.299 Other ovarian cyst, unspecified side (principal); Q50.5 Embryonic cyst of broad ligament
CPT/HCPCS: 36415; 82105; 82378; 83520; 83615; 86301; 86304; 86336; 99212

== ENCOUNTER 2023-12-27 10:17 | Outpatient (AMB) | payer MEDICAID, SELFPAY ==
[2023-12-27 10:22] VITALS: BMI 34.2
--- NOTE | 2023-12-27 10:22 | A.OFFVIS_ITS ---
Vital Signs 12/27/23 10:22 Height 5 ft 6 in Weight 211 lb 10.3 oz BMI 34.2 Intake Visit Reasons: Mri follow up Allergies No Known Allergies [No Known Allergies*] Allergy (Verified 12/05/23 10:43) HPI Comments Details: The patient is presenting for follow-up pelvic MRI regarding right complex ovarian cyst with mural nodule identified on pelvic ultrasound. 04/19 pelvic ultrasound showed the following: IMPRESSION: 1. There is very mild interim increase in a previously noted complex right paraovarian cyst with mural nodule. Gynecology evaluation and management is recommended. 2. There is a small amount of nonspecific free fluid in the cul-de-sac. 3. This is a very small amount of nonspecific anechoic endocervical fluid. 11/17 MRI showed the following: IMPRESSION: 1. Again seen is a 2.5 cm exophytic right ovarian cystic lesion with a 0.4 cm T2 hypointense enhancing solid nodule, which demonstrates minimal growth over time. Evaluation is limited by lack of diffusion-weighted imaging, therefore this is an O-RADS MRI score 0 lesion, incomplete evaluation. Recommend continued gynecologic evaluation and management, and repeat MRI with diffusion-weighted sequences and dynamic contrast-enhanced sequences could be obtained for further delineation. 2. A 2.3 cm left ovarian cyst new from prior with a single thin internal septation without enhancing solid components, likely benign Last co testing in 12/18 was negative PFSH Medical History Simple ovarian cyst Hypertension IBS (irritable bowel syndrome) Fibromyalgia Asthma Migraines Surgical History Hx of colonoscopy History of esophagogastroduodenoscopy (EGD) History of loop electrical excision procedure (LEEP) Hx of tubal ligation Family History Mother Diabetes HTN (hypertension) Asthma Brother Asthma Social History Household Members: Children Are you a primary wound care rn to a significant other at home: No (children 15,10,8 Mother will assist with care) Do you presently have visiting nurse or other home services: No Alcohol intake: never Patient Tobacco Use Status: Never used Tobacco Substance Use Type: Marijuana Current occupational status: employed 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 Sexual orientation: Straight/Heterosexual Gender identity: Female Female Reproductive History Menstrual Age of Menarche: 15 Review of Systems Const All systems reviewed & are unremarkable except as noted in HPI and below Reports as per HPI and Reports no additional complaints GI Reports no additional complaints Reports no additional complaints Physical Exam Vital Signs: BMI result Body Mass Index 34.2 Assessment & Plan Assessment & Plan (1) Para-ovarian cyst: Comment: Complex right paraovarian cyst Code(s): Q50.5 - Embryonic cyst of broad ligament Category: Medical Plan: Discussed with the patient the finding on ultrasound and pelvic MRI complex adnexal cyst with mural nodule. Differential diagnosis discussed with the patient includes but not limited to monogram machine operator and non monogram machine operator malignant and nonmalignant causes. Will Refer to monogram machine operator Oncology for further management. CA 125, CEA, CA 19- 9, LDH, inhibin and alpha fetoprotein ordered. All questions answered, the patient verbalized understanding Appointment at [facility] On[facility] at [facility] scheduled with Dr. Delgado on 01/11/2024 at 11:00, the patient is aware Orders: Orders Alpha Fetoprotein Today N83.299 - Other ovarian cyst, unspecified side, Q50.5 - Embryonic cyst of broad ligament Carcinoembryonic Antigen Today N83.299 - Other ovarian cyst, unspecified side, Q50.5 - Embryonic cyst of broad ligament Carbohydrate Antigen 19-9 Today N83.299 - Other ovarian cyst, unspecified side, Q50.5 - Embryonic cyst of broad ligament Lactate Dehydrogenase Today N83.299 - Other ovarian cyst, unspecified side, Q50.5 - Embryonic cyst of broad ligament CA-125 Today N83.299 - Other ovarian cyst, unspecified side, Q50.5 - Embryonic cyst of broad ligament Inhibin A Today Q50.5 - Embryonic cyst of broad ligament Inhibin B Today Q50.5 - Embryonic cyst of broad ligament Referrals Gynecologic Oncology Referral Q50.5 - Embryonic cyst of broad ligament Coding Level of Care Code Est Pt Level 3 (70478) Diagnoses Para-ovarian cyst Q50.5
== END 2023-12-27 11:15 | disposition home or self-care (01) ==
PROVIDERS: PCP Family Medicine; Visit Provider Obstetrics & Gynecology
DX: Q50.5 Embryonic cyst of broad ligament (principal)
CPT/HCPCS: 99213

== ENCOUNTER 2024-01-12 23:02 | Emergency (ER) | payer MEDICAID, SELFPAY ==
[2024-01-12 23:08] VITALS: BP 155/101; PULSE 78; RESP 16; TEMP 36.9; O2SAT 100; BMI 33.8
[2024-01-12 23:41] LABS: Basophils Percent Auto 0.6 % (0-2); Eosinophils Absolute Auto 0.1 X10*3/uL (0.0-0.4); Eosinophils Percent Auto 1.4 % (0-4); Hematocrit 37.2 % (37.0-47.0); Hemoglobin 12.7 g/dl (12.0-16.0); Imm Gran Abs Auto 0.01 X10*3/uL (0.00-0.03); Imm Gran Pct Auto 0.1 % (0.0-0.4); Lymphocytes Absolute Auto 3.4 X10*3/uL (1.2-4.9); Lymphocytes Percent Auto 46.7 % (20-40); MANUAL DIFF FLAG NO; Mean Corpuscular HGB Conc 34.1 g/dl (31.0-35.0); Mean Corpuscular Hemoglobin 29.7 pg (27.0-33.0); Mean Corpuscular Volume 86.9 fL (80.0-98.0); Mean Platelet Volume 10.7 fL (9.4-12.3); Monocytes Absolute Auto 0.5 X10*3/uL (0.1-1.2); Monocytes Percent Auto 6.7 % (2-11); Neutrophils Absolute Auto 3.2 x10*3/uL (2.0-8.3); Neutrophils Percent Auto 44.5 % (45-73); Platelet Count 224 X10*3/uL (160-400); Red Blood Count 4.28 X10*6/uL (4.20-5.50); Red Cell Distribution Width 14.6 % (11.0-16.0); White Blood Count 7.3 X10*3/uL (4.8-10.8)
[2024-01-12 23:43] LABS: Appearance Urine Clear; Color Urine Yellow; Glucose Urine UA Negative (Negative); Leukocyte Esterase Urine Negative (Negative); Nitrite Urine Negative (Negative); PH 6.5 (5.0-9.0); Specific Gravity - Urine 1.015 (1.005-1.025); Urine Blood Negative (Negative); Urine Ketones Negative (Negative); Urine Protein Negative (Neg-Trace)
[2024-01-12 23:45] LABS: UPreg QC Valid YES; Urine Pregnancy NEGATIVE (NEGATIVE)
[2024-01-12 23:52] LABS: Anion Gap 15 (12-20); Blood Urea Nitrogen 9 mg/dL (9-16); Calcium 9.1 mg/dL (8.4-10.2); Carbon Dioxide 22 mmol/L (22-29); Chloride 108 mmol/L (96-108); Estimated Glomerular Filt Rate > 60; Glucose Random 92 mg/dL (60-115); Potassium 3.7 mmol/L (3.3-5.1); Sodium 141 mmol/L (135-145)
[2024-01-13 00:09] LABS: Lipase 16 U/L (8-78)
--- NOTE | 2024-01-13 01:14 | ED_ITS ---
HPI - Female Genitourinary General Chief complaint: Urogenital-Female Stated complaint: Kidney pain Time Seen by Provider: 01/13/24 01:14 Source: patient Mode of arrival: ambulatory Limitations: no limitations History of Present Illness ED Provider: Dr. Garcia HPI Narrative: Patient is a 38yo female with anxiety, fibromyalgia, back pain who presents with right lower back pain radiating down her left leg. Patient denies injury, states that she has had prior back pain. Related Data Home Medications ?Medication ?Instructions ?Recorded ?Confirmed albuterol sulfate 90 mcg/actuation 1 inh inhalation QID 01/15/20 12/05/23 aerosol inhaler (Proventil HFA) [id number]-jnibfkkcjfjyf-hcoyuiww 250 1 tab PO Q4-6H PRN Headache 01/15/20 12/05/23 mg-250 mg-65 mg tablet (Excedrin Migraine) loratadine 10 mg tablet (Allergy 10 mg PO DAILY 01/15/20 12/05/23 Relief (loratadine)) montelukast 10 mg tablet 10 mg PO BEDTIME 01/15/20 12/05/23 (Singulair) cholecalciferol (vitamin D3) 50 50 mcg PO DAILY 03/16/22 12/05/23 mcg (2,000 unit) capsule (Vitamin D3) lisinopril 10 mg tablet 10 mg PO DAILY 03/16/22 12/05/23 pantoprazole 40 mg tablet,delayed 40 mg PO BID 03/16/22 12/05/23 release fluticasone 250 mcg-salmeterol 50 1 ea inhalation BID 12/02/22 12/05/23 mcg/dose blistr powdr for inhalation (Advair Diskus) topiramate 25 mg tablet 25 mg PO BEDTIME 12/02/22 12/05/23 Previous Rx's ?Medication ?Instructions ?Recorded famotidine 20 mg tablet (Acid 20 mg PO BID #60 tabs 06/23/21 Nursing Service Director (famotidine)) iqktqddesv-taskbklffctff-bjjpwega 1 cap PO Q8H PRN pain #3 caps 08/09/21 50 mg-300 mg-40 mg capsule (Fioricet) sumatriptan succinate 50 mg tablet 50 mg PO Q2-4H PRN migraine 03/24/22 headache #14 tabs acetaminophen 500 mg tablet 1,000 mg (2 x 500 mg) PO QID PRN 08/25/22 pain #30 tabs ibuprofen 600 mg tablet 600 mg PO Q6H PRN pain #20 tabs 08/25/22 ondansetron 4 mg disintegrating 4 mg PO Q8H #10 tabs 12/02/22 tablet propranolol 60 mg capsule,24 60 mg PO BEDTIME #90 caps 12/19/22 hr,extended release polyethylene glycol 3350 17 17 g PO DAILY #510 grams 06/02/23 gram/dose oral powder (Miralax) psyllium husk 3.4 gram/5.4 gram 1 tbsp PO BID #660 grams 06/02/23 oral powder (Metamucil) sucralfate 1 gram tablet (Carafate) 1 g PO TID #20 tabs 09/13/23 cyclobenzaprine 10 mg tablet 10 mg PO TID PRN muscle spasm #20 11/08/23 tabs cyclobenzaprine 10 mg tablet 10 mg PO TID #10 tabs 01/13/24 naproxen 500 mg tablet (Naprosyn) 500 mg PO BID #20 tabs 01/13/24 Allergies Allergy/AdvReac Type Severity Reaction Status Date / Time No Known Allergies Allergy Verified 01/12/24 23:11 [No Known Allergies*] Review of Systems 2 Review of Systems: Yes all other systems are reviewed and are negative Neurologic: Denies Sensory deficit (Neuro) PMFSH Past Medical History Medical History Simple ovarian cyst Hypertension IBS (irritable bowel syndrome) Fibromyalgia Asthma Migraines Surgical History Hx of colonoscopy History of esophagogastroduodenoscopy (EGD) History of loop electrical excision procedure (LEEP) Hx of tubal ligation Family History Family History Mother Diabetes HTN (hypertension) Asthma Brother Asthma Social History Social History Household Members: Children Are you a primary medicare specialist to a significant other at home: No (children 15,10,8 Mother will assist with care) Do you presently have visiting nurse or other home services: No Alcohol intake: never Patient Tobacco Use Status: Never used Tobacco Smoked in Last 30 Days: No Use of substances other than those prescribed or required for medical reasons: Yes Substance Use Type: Marijuana Substance Use Frequency: Chronic Longstanding Advance Directives: No Advance Directives Information Provided: No Do you have a plan to hurt others: No Plan Patient : No Current occupational status: employed 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 Sexual orientation: Straight/Heterosexual Gender identity: Female Physical Exam 2 Vital Signs: Vital Signs: Last Vital Signs Temp 98.4 F 01/12/24 23:08 Pulse 78 01/12/24 23:08 Resp 16 01/12/24 23:08 BP 155/101 H 01/12/24 23:08 Pulse Ox 100 01/12/24 23:08 O2 Del Method Room Air 01/12/24 23:08 BMI result Body Mass Index 33.8 Const: General: healthy appearing Nutritional Appearance: average body habitus Orientation/consciousness: oriented to person and patient oriented x3 Limitations: no limitations HEENT: Head: Yes normal to inspection Ears: external ears normal General nose exam: Normal external nose present Mouth: Normal oral and palatal mucosa present and oropharynx normal Throat: Yes posterior oropharynx normal Eyes: General: appearance normal, both eyes and all related structures Neck: Other: supple Neck: Yes normal visual inspection Chest: Chest palpation & inspection: normal inspection of the chest Resp: Auscultation: clear to auscultation bilaterally Cardio: Jugular venous distension: no JVD Rate: regular rate Rhythm: r egular rhythm Heart sounds: S1 normal heart sound present and S2 normal heart sound present GI: Inspection: Yes normal to inspection Palpation (GI): Soft to palpation, nontender and No hepatosplenomegaly present Auscultation: normal bowel sounds Back/Spine/Pelvis: Other: left SI joint pain and left sciatic pain Skin: General skin exam: no rashes or lesions noted Neuro: General: oriented to person and patient oriented x3 Cranial nerves: Yes CN's II-XII intact bilaterally Motor exam (neuro): 5/5 motor strength present throughout Sensory Exam: No Sensory deficit (Neuro) Extrem: General: Yes normal to inspection Psych: Appearance: grossly normal Course Reevaluation(s) Reevaluation #1: Labs and urine negative, patient with point tenderness to back will treat with muscle relaxer and NSAIDs Time: 01:25 Medical Decision Making Differential Diagnosis Differential Diagnoses: The differential diagnosis associated with the presentation includes (Sciatica, lumbar tenderness, UTI, pyelonephritis ) Admission/Observation Consideration of admission/observation: Escalation of care including admission/observation considered (upon arrival admission was considered) Lab Data 01/12/24 23:33 01/12/24 23:33 Labs: Lab Results 01/12/24 Range/Units 23:33 WBC 7.3 (4.8-10.8) X10*3/uL RBC 4.28 (4.20-5.50) X10*6/uL Hgb 12.7 (12.0-16.0) g/dl Hct 37.2 (37.0-47.0) % MCV 86.9 (80.0-98.0) fL MCH 29.7 (27.0-33.0) pg MCHC 34.1 (31.0-35.0) g/dl RDW 14.6 (11.0-16.0) % Plt Count 224 (160-400) X10*3/uL MPV 10.7 (9.4-12.3) fL Immature Gran % (Auto) 0.1 (0.0-0.4) % Neut % (Auto) 44.5 L (45-73) % Lymph % (Auto) 46.7 H (20-40) % [place] % (Auto) 6.7 (2-11) % Eos % (Auto) 1.4 (0-4) % Baso % (Auto) 0.6 (0-2) % Lymph # (Auto) 3.4 (1.2-4.9) X10*3/uL [place] # (Auto) 0.5 (0.1-1.2) X10*3/uL Eos # (Auto) 0.1 (0.0-0.4) X10*3/uL Baso # (Auto) 0.0 (0.0-0.2) X10*3/uL Abs Immat Gran (auto) 0.01 (0.00-0.03) X10*3/uL Absolute Neuts (auto) 3.2 (2.0-8.3) x10*3/uL Absolute Nucleated RBC 0.000 (0.0-0.012) X10*3/uL Nucleated RBC % (auto) 0.0 (0.0-0.2) /100WBC Sodium 141 (135-145) mmol/L Potassium 3.7 (3.3-5.1) mmol/L Chloride 108 (96-108) mmol/L Carbon Dioxide 22 (22-29) mmol/L Anion Gap 15 (12-20) BUN 9 (9-16) mg/dL Creatinine 0.86 (0.5-1.4) mg/dL Estim Creat Clear Calc 105.0 Estimated GFR > 60 Random Glucose 92 (60-115) mg/dL Calcium 9.1 (8.4-10.2) mg/dL Lipase 16 (8-78) U/L Urine Color Yellow Urine Appearance Clear Urine pH 6.5 (5.0-9.0) Ur Specific [place] 1.015 (1.005-1.025) Urine Protein Negative (Neg-Trace) mg/dL Urine Glucose (UA) Negative (Negative) mg/dL Urine Ketones Negative (Negative) mg/dL Urine Blood Negative (Negative) Urine Nitrite Negative (Negative) Ur Leukocyte Esterase Negative (Negative) Urine Test NEGATIVE (NEGATIVE) Tests considered The following testing was considered but not selected: xray was considered but patient with a long history of back pain Prescription Management I considered prescription management with: Antibiotic (no evidence of UTI) Chronic Conditions Patient?s care impacted by: Other (psychiatric illness) Social Determinants Patient?s care significantly limited by Social Determinants of Health including: Low income Discharge Plan Discharge Clinical Impression: Back pain Patient Disposition: Home, Self-Care Instructions: Acute Low Back Pain (ED) Prescriptions: New cyclobenzaprine 10 mg tablet 10 mg PO TID Qty: 10 0RF naproxen [Naprosyn] 500 mg tablet 500 mg PO BID Qty: 20 0RF No Action famotidine [Acid Nursing Service Director (famotidine)] 20 mg tablet 20 mg PO BID Qty: 60 6RF propranolol 60 mg capsule,extended release 24 hr 60 mg PO BEDTIME Qty: 90 1RF [id number]-vmlbkmmjvvrbf-zkzj [Fioricet] 50-300-40 mg capsule 1 cap PO Q8H PRN (Reason: pain) Qty: 3 0RF acetaminophen 500 mg tablet 1,000 mg PO QID PRN (Reason: pain) Qty: 30 0RF ibuprofen 600 mg tablet 600 mg PO Q6H PRN (Reason: pain) Qty: 20 0RF sucralfate [Carafate] 1 gram tablet 1 g PO TID Qty: 20 0RF cyclobenzaprine 10 mg tablet 10 mg PO TID PRN (Reason: muscle spasm) Qty: 20 0RF albuterol sulfate [Proventil HFA] 90 mcg/actuation HFA aerosol inhaler 1 inh inhalation QID montelukast [Singulair] 10 mg tablet 10 mg PO BEDTIME loratadine [Allergy Relief (loratadine)] 10 mg tablet 10 mg PO DAILY Excedrin Migraine 250-250-65 mg tablet 1 tab PO Q4-6H PRN (Reason: Headache) lisinopril 10 mg tablet 10 mg PO DAILY cholecalciferol (vitamin D3) [Vitamin D3] 50 mcg (2,000 unit) capsule 50 mcg PO DAILY pantoprazole 40 mg tablet,delayed release (DR/EC) 40 mg PO BID sumatriptan succinate 50 mg tablet 50 mg PO Q2-4H PRN (Reason: migraine headache) Qty: 14 3RF Rx Instructions: do not exceed 4 doses per 24 hrs fluticasone propion-salmeterol [Advair Diskus] 250-50 mcg/dose blister with device 1 ea inhalation BID topiramate 25 mg tablet 25 mg PO BEDTIME ondansetron 4 mg tablet,disintegrating 4 mg PO Q8H Qty: 10 0RF polyethylene glycol 3350 [Miralax] 17 gram/dose powder 17 g PO DAILY Qty: 510 2RF Metamucil 3.4 gram/5.4 gram powder 1 tbsp PO BID Qty: 660 2RF Rx Instructions: mix into at least 8 oz of water or juice before administering Referrals: Lu Estrada MD [Primary Care Provider] - 3 days Print Language: Turkish
[2024-01-13 01:55] VITALS: BP 146/91; PULSE 54; RESP 16; TEMP 36.7; O2SAT 100
[2024-01-13] MEDS: Ketorolac Tromethamine 30 MG/ML VIAL IVPUSH (02:00)
[2024-01-13] MEDS: Cyclobenzaprine HCl 10 MG TABLET PO (02:00)
[2024-01-13 02:03] VITALS: BP 146/91; PULSE 54; RESP 16; TEMP 36.7; O2SAT 100
== END 2024-01-13 02:03 | disposition home or self-care (01) ==
PROVIDERS: Emergency Provider Emergency Medicine; PCP Family Medicine
DX: M54.50 Low back pain, unspecified (principal)
CPT/HCPCS: 36415; 80048; 81003; 81025; 83690; 85025; 96374; 99284; J1885

== ENCOUNTER 2024-01-22 15:15 | Outpatient (REF) | payer MEDICAID, SELFPAY ==
[2024-01-22 16:36] LABS: Estimated Average Glucose 108 mg/dL; Hemoglobin A1C 107.6415 umol/L; Hemoglobin A1c % 5.4 % (<6.0); Total Hemoglobin (HGBA1C) 3078.2477 umol/L
[2024-01-22 16:41] LABS: Alanine Aminotransferase 13 U/L (0-31); Albumin Level 4.2 g/dL (3.5-5.0); Alkaline Phosphatase 52 U/L (39-117); Anion Gap 11 (12-20); Aspartate Amino Transferase 33 U/L (5-31); Bilirubin Total 0.5 mg/dL (0.0-1.0); Blood Urea Nitrogen 11 mg/dL (9-16); Calcium 9.3 mg/dL (8.4-10.2); Carbon Dioxide 20 mmol/L (22-29); Chloride 110 mmol/L (96-108); Cholesterol 183 mg/dL (<200); Estimated Glomerular Filt Rate > 60; Glucose Random 89 mg/dL (60-115); HDL Cholesterol 40 mg/dL (>40); LDL Cholesterol Calculated 126 mg/dL (<100); Potassium 3.3 mmol/L (3.3-5.1); Sodium 138 mmol/L (135-145); Total Protein 7.2 g/dL (6.5-8.0); Triglycerides 88 mg/dL (<150)
[2024-01-22 16:45] LABS: Reflex LDLD? No
[2024-01-22 16:59] LABS: TSH reflex Free T4 1.37 uIU/mL (0.32-4.0)
== END 2024-01-22 15:16 | disposition home or self-care (01) ==
LOC: HO.HHCL 15:15
PROVIDERS: Visit Provider Family Medicine
DX: I10 Essential (primary) hypertension (principal); E66.811 Obesity, class 1; E66.09 Other obesity due to excess calories; Z68.33 Body mass index [BMI] 33.0-33.9, adult
CPT/HCPCS: 36415; 80053; 80061; 83036; 84443

== ENCOUNTER 2024-02-18 22:38 | Emergency (ER) | payer MEDICAID, SELFPAY ==
[2024-02-18 22:43] VITALS: BP 153/105; PULSE 79; RESP 16; TEMP 36.6; O2SAT 97; BMI 31.7
[2024-02-18 23:24] LABS: MANUAL DIFF FLAG NO
--- NOTE | 2024-02-18 23:25 | ED_ITS ---
HPI - General Adult General Chief complaint: General Medical Stated complaint: chills/headache Time Seen by Provider: 02/18/24 23:15 Source: patient Mode of arrival: ambulatory Limitations: no limitations History of Present Illness ED Provider: ana CORDOVA narrative: Patient is status post laparoscopic ovarian cystectomy on 02/07/2024 was doing okay for last 7 days patient has been having chills and since yesterday been having diarrhea multiple times no nausea no vomiting no urinary symptoms no upper respiratory symptoms no fever Related Data Home Medications ?Medication ?Instructions ?Recorded ?Confirmed albuterol sulfate 90 mcg/actuation 1 inh inhalation QID 01/15/20 12/05/23 aerosol inhaler (Proventil HFA) ebmrdmt-nvabsdgsjrivz-ahnheqyv 250 1 tab PO Q4-6H PRN Headache 01/15/20 12/05/23 mg-250 mg-65 mg tablet (Excedrin Migraine) loratadine 10 mg tablet (Allergy 10 mg PO DAILY 01/15/20 12/05/23 Relief (loratadine)) montelukast 10 mg tablet 10 mg PO BEDTIME 01/15/20 12/05/23 (Singulair) cholecalciferol (vitamin D3) 50 50 mcg PO DAILY 03/16/22 12/05/23 mcg (2,000 unit) capsule (Vitamin D3) lisinopril 10 mg tablet 10 mg PO DAILY 03/16/22 12/05/23 pantoprazole 40 mg tablet,delayed 40 mg PO BID 03/16/22 12/05/23 release fluticasone 250 mcg-salmeterol 50 1 ea inhalation BID 12/02/22 12/05/23 mcg/dose blistr powdr for inhalation (Advair Diskus) topiramate 25 mg tablet 25 mg PO BEDTIME 12/02/22 12/05/23 Previous Rx's ?Medication ?Instructions ?Recorded famotidine 20 mg tablet (Acid 20 mg PO BID #60 tabs 06/23/21 Digital Camera Technician (famotidine)) iuaabuffjt-wdpkadcgyqypk-jximizok 1 cap PO Q8H PRN pain #3 caps 08/09/21 50 mg-300 mg-40 mg capsule (Fioricet) sumatriptan succinate 50 mg tablet 50 mg PO Q2-4H PRN migraine 03/24/22 headache #14 tabs acetaminophen 500 mg tablet 1,000 mg (2 x 500 mg) PO QID PRN 08/25/22 pain #30 tabs ibuprofen 600 mg tablet 600 mg PO Q6H PRN pain #20 tabs 08/25/22 ondansetron 4 mg disintegrating 4 mg PO Q8H #10 tabs 12/02/22 tablet propranolol 60 mg capsule,24 60 mg PO BEDTIME #90 caps 12/19/22 hr,extended release polyethylene glycol 3350 17 17 g PO DAILY #510 grams 06/02/23 gram/dose oral powder (Miralax) psyllium husk 3.4 gram/5.4 gram 1 tbsp PO BID #660 grams 06/02/23 oral powder (Metamucil) sucralfate 1 gram tablet (Carafate) 1 g PO TID #20 tabs 09/13/23 cyclobenzaprine 10 mg tablet 10 mg PO TID PRN muscle spasm #20 11/08/23 tabs cyclobenzaprine 10 mg tablet 10 mg PO TID #10 tabs 01/13/24 naproxen 500 mg tablet (Naprosyn) 500 mg PO BID #20 tabs 01/13/24 ibuprofen 600 mg tablet 600 mg PO Q6H PRN fever or pain 02/19/24 #30 tabs Allergies Allergy/AdvReac Type Severity Reaction Status Date / Time No Known Allergies Allergy Verified 02/18/24 22:46 [No Known Allergies*] Review of Systems 2 Review of Systems: Yes all other systems are reviewed and are negative PMFSH Past Medical History Medical History Simple ovarian cyst Hypertension IBS (irritable bowel syndrome) Fibromyalgia Asthma Migraines Surgical History Hx of colonoscopy History of esophagogastroduodenoscopy (EGD) History of loop electrical excision procedure (LEEP) Hx of tubal ligation Family History Family History Mother Diabetes HTN (hypertension) Asthma Brother Asthma Social History Social History Household Members: Children Are you a primary career and technology education teacher to a significant other at home: No (children 15,10,8 Mother will assist with care) Do you presently have visiting nurse or other home services: No Alcohol intake: never Patient Tobacco Use Status: Never used Tobacco Smoked in Last 30 Days: No Use of substances other than those prescribed or required for medical reasons: No Substance Use Type: Marijuana Advance Directives: No Advance Directives Information Provided: Yes Current occupational status: employed 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 Oriented X3. No acute distress. Eyes: PERRLA, No Nystagmus ENT: Pharynx normal. Oral Mucosa moist Neck: Normal inspection. Neck supple. CVS: Normal heart rate and rhythm. Pulses normal. Respiratory: No respiratory distress. Equal air entry bilateral, no wheezing/rales/rhonchi Abdomen: Soft and diffuse discomfort no rebound tenderness or guarding Bowel sounds are present, no mass palpable, no CVA tenderness Skin: Skin warm and dry. Normal skin color. Normal skin turgor. Extremities: No lower extremity edema. No calf tenderness Neuro: Oriented X 3. No motor deficit. Medications Administered Discontinued Medications Generic Name Dose Route Start Last Admin Trade Name Freq PRN Reason Stop Dose Admin Ibuprofen 600 mg 02/19/24 00:32 02/19/24 00:37 Ibuprofen 600 Mg Tablet PO 02/19/24 00:33 600 mg ONCE ONE Administration Medical Decision Making Medical Decision Making [facility] Narrative: Patient with normal labs no signs of infection no fever unknown cause for the chills likely viral syndrome/inflammatory patient advised to follow with stock dealer Differential Diagnosis Differential Diagnoses: The differential diagnosis associated with the presentation includes Admission/Observation Consideration of admission/observation: Escalation of care including admission/observation considered Lab Data [facility] Lab Attestation statement: I reviewed the patient's lab results. 02/18/24 23:14 02/18/24 23:14 Labs: Lab Results 02/18/24 02/18/24 Range/Units 23:14 23:19 WBC 7.5 (4.8-10.8) X10*3/uL RBC 4.12 L (4.20-5.50) X10*6/uL Hgb 12.0 (12.0-16.0) g/dl Hct 35.3 L (37.0-47.0) % MCV 85.7 (80.0-98.0) fL MCH 29.1 (27.0-33.0) pg MCHC 34.0 (31.0-35.0) g/dl RDW 13.9 (11.0-16.0) % Plt Count 236 (160-400) X10*3/uL MPV 10.3 (9.4-12.3) fL Immature Gran % (Auto) 0.3 (0.0-0.4) % Neut % (Auto) 54.7 (45-73) % Lymph % (Auto) 35.4 (20-40) % [place] % (Auto) 7.5 (2-11) % Eos % (Auto) 1.7 (0-4) % Baso % (Auto) 0.4 (0-2) % Lymph # (Auto) 2.6 (1.2-4.9) X10*3/uL [place] # (Auto) 0.6 (0.1-1.2) X10*3/uL Eos # (Auto) 0.1 (0.0-0.4) X10*3/uL Baso # (Auto) 0.0 (0.0-0.2) X10*3/uL Abs Immat Gran (auto) 0.02 (0.00-0.03) X10*3/uL Absolute Neuts (auto) 4.1 (2.0-8.3) x10*3/uL Absolute Nucleated RBC 0.000 (0.0-0.012) X10*3/uL Nucleated RBC % (auto) 0.0 (0.0-0.2) /100WBC Sodium 136 (135-145) mmol/L Potassium 3.9 (3.3-5.1) mmol/L Chloride 103 (96-108) mmol/L Carbon Dioxide 23 (22-29) mmol/L Anion Gap 14 (12-20) BUN 16 (9-16) mg/dL Creatinine 0.89 (0.5-1.4) mg/dL Estim Creat Clear Calc 98.3 Estimated GFR > 60 Random Glucose 80 (60-115) mg/dL Calcium 9.1 (8.4-10.2) mg/dL Total Bilirubin 0.7 (0.0-1.0) mg/dL AST 27 (5-31) U/L ALT 44 H (0-31) U/L Alkaline Phosphatase 58 (39-117) U/L Total Protein 7.2 (6.5-8.0) g/dL Albumin 4.2 (3.5-5.0) g/dL Urine Color Yellow Urine Appearance Clear Urine pH 7.0 (5.0-9.0) Ur Specific [place] 1.025 (1.005-1.025) Urine Protein Trace (Neg-Trace) mg/dL Urine Glucose (UA) Negative (Negative) mg/dL Urine Ketones Negative (Negative) mg/dL Urine Blood Small (1+) H (Negative) Urine Nitrite Negative (Negative) Ur Leukocyte Esterase Small (1+) H (Negative) Urine RBC 3-5 H (0-2) /HPF Urine WBC 0-5 (0-5) /HPF Ur Squamous Epith Cells 6-10 (0-2) /HPF Urine Bacteria Trace (None Seen) Hyaline Casts 0-2 (0-2) /LPF Urine Test NEGATIVE (NEGATIVE) Influenza Type A (PCR) NEGATIVE (Negative) Influenza Type B (PCR) NEGATIVE (Negative) RSV RNA Qual (PCR) NEGATIVE (Negative) SARS-CoV-2 RNA (RT-PCR) NEGATIVE (Negative) Discharge Plan Discharge Clinical Impression: Chills (without fever) Patient Disposition: Home, Self-Care Instructions: Viral Syndrome (ED) Additional Instructions: Cause of your chills not clear your lab workup showed normal WBC count no signs of infection noticed Take Tylenol/Motrin Likely have inflammatory cause for the chills Follow up with your superintendent recreation Prescriptions: New ibuprofen 600 mg tablet 600 mg PO Q6H PRN (Reason: fever or pain) Qty: 30 0RF No Action famotidine [Acid Digital Camera Technician (famotidine)] 20 mg tablet 20 mg PO BID Qty: 60 6RF propranolol 60 mg capsule,extended release 24 hr 60 mg PO BEDTIME Qty: 90 1RF lnsbjttrgk-woqddpezbaacj-elrj [Fioricet] 50-300-40 mg capsule 1 cap PO Q8H PRN (Reason: pain) Qty: 3 0RF acetaminophen 500 mg tablet 1,000 mg PO QID PRN (Reason: pain) Qty: 30 0RF ibuprofen 600 mg tablet 600 mg PO Q6H PRN (Reason: pain) Qty: 20 0RF cyclobenzaprine 10 mg tablet 10 mg PO TID Qty: 10 0RF naproxen [Naprosyn] 500 mg tablet 500 mg PO BID Qty: 20 0RF sucralfate [Carafate] 1 gram tablet 1 g PO TID Qty: 20 0RF cyclobenzaprine 10 mg tablet 10 mg PO TID PRN (Reason: muscle spasm) Qty: 20 0RF albuterol sulfate [Proventil HFA] 90 mcg/actuation HFA aerosol inhaler 1 inh inhalation QID montelukast [Singulair] 10 mg tablet 10 mg PO BEDTIME loratadine [Allergy Relief (loratadine)] 10 mg tablet 10 mg PO DAILY Excedrin Migraine 250-250-65 mg tablet 1 tab PO Q4-6H PRN (Reason: Headache) lisinopril 10 mg tablet 10 mg PO DAILY cholecalciferol (vitamin D3) [Vitamin D3] 50 mcg (2,000 unit) capsule 50 mcg PO DAILY pantoprazole 40 mg tablet,delayed release (DR/EC) 40 mg PO BID sumatriptan succinate 50 mg tablet 50 mg PO Q2-4H PRN (Reason: migraine headache) Qty: 14 3RF Rx Instructions: do not exceed 4 doses per 24 hrs fluticasone propion-salmeterol [Advair Diskus] 250-50 mcg/dose blister with device 1 ea inhalation BID topiramate 25 mg tablet 25 mg PO BEDTIME ondansetron 4 mg tablet,disintegrating 4 mg PO Q8H Qty: 10 0RF polyethylene glycol 3350 [Miralax] 17 gram/dose powder 17 g PO DAILY Qty: 510 2RF Metamucil 3.4 gram/5.4 gram powder 1 tbsp PO BID Qty: 660 2RF Rx Instructions: mix into at least 8 oz of water or juice before administering Print Language: Lithuanian
[2024-02-18 23:26] LABS: Basophils Percent Auto 0.4 % (0-2); Eosinophils Absolute Auto 0.1 X10*3/uL (0.0-0.4); Eosinophils Percent Auto 1.7 % (0-4); Hematocrit 35.3 % (37.0-47.0); Imm Gran Abs Auto 0.02 X10*3/uL (0.00-0.03); Imm Gran Pct Auto 0.3 % (0.0-0.4); Lymphocytes Absolute Auto 2.6 X10*3/uL (1.2-4.9); Lymphocytes Percent Auto 35.4 % (20-40); Mean Corpuscular Hemoglobin 29.1 pg (27.0-33.0); Mean Corpuscular Volume 85.7 fL (80.0-98.0); Mean Platelet Volume 10.3 fL (9.4-12.3); Monocytes Absolute Auto 0.6 X10*3/uL (0.1-1.2); Monocytes Percent Auto 7.5 % (2-11); Neutrophils Absolute Auto 4.1 x10*3/uL (2.0-8.3); Neutrophils Percent Auto 54.7 % (45-73); Platelet Count 236 X10*3/uL (160-400); Red Blood Count 4.12 X10*6/uL (4.20-5.50); Red Cell Distribution Width 13.9 % (11.0-16.0); White Blood Count 7.5 X10*3/uL (4.8-10.8)
--- NOTE | 2024-02-18 23:27 | PC.NURSE ---
Pt resting in bed, labs collected and sent. pt awaiting to be seen.
[2024-02-18 23:28] LABS: Appearance Urine Clear; Color Urine Yellow; Glucose Urine UA Negative (Negative); Leukocyte Esterase Urine Small (1+) (Negative); Nitrite Urine Negative (Negative); Specific Gravity - Urine 1.025 (1.005-1.025); UMIC TRIGGER UACC YES; Urine Blood Small (1+) (Negative); Urine Ketones Negative (Negative); Urine Protein Trace mg/dL (Neg-Trace)
[2024-02-18 23:29] LABS: UPreg QC Valid YES; Urine Pregnancy NEGATIVE (NEGATIVE)
[2024-02-18 23:41] LABS: Alanine Aminotransferase 44 U/L (0-31); Albumin Level 4.2 g/dL (3.5-5.0); Alkaline Phosphatase 58 U/L (39-117); Anion Gap 14 (12-20); Aspartate Amino Transferase 27 U/L (5-31); Bilirubin Total 0.7 mg/dL (0.0-1.0); Blood Urea Nitrogen 16 mg/dL (9-16); Calcium 9.1 mg/dL (8.4-10.2); Carbon Dioxide 23 mmol/L (22-29); Chloride 103 mmol/L (96-108); Creatinine Clr Calc Pharmacy 98.3; Estimated Glomerular Filt Rate > 60; Glucose Random 80 mg/dL (60-115); Potassium 3.9 mmol/L (3.3-5.1); Sodium 136 mmol/L (135-145); Total Protein 7.2 g/dL (6.5-8.0)
[2024-02-18 23:42] LABS: Bacteria Urine Trace (None Seen); Hyaline Casts Urine 0-2 /LPF (0-2); UACC Culture Trigger YES; WBC Urine 0-5 /HPF (0-5)
[2024-02-19 00:08] LABS: Influenza A PCR NEGATIVE (Negative); Influenza B PCR NEGATIVE (Negative); Resp Syncy Virus RNA Qual PCR NEGATIVE (Negative); SARS COV2 PCR INHOUSE NEGATIVE (Negative)
[2024-02-19] MEDS: Ibuprofen 600 MG TABLET PO (00:37)
[2024-02-19 00:44] VITALS: BP 149/93; PULSE 64; RESP 20; TEMP 36.3; O2SAT 98
--- NOTE | 2024-02-19 00:45 | PC.NURSE ---
Reviewed discharge instructions with pt, pt verbalized understanding, not sign of distress upon arrival
[2024-02-19 01:00] VITALS: BP 149/93; PULSE 64; RESP 20; TEMP 36.3; O2SAT 98
== END 2024-02-19 01:01 | disposition home or self-care (01) ==
PROVIDERS: Emergency Provider Internal Medicine; PCP Family Medicine
DX: R68.83 Chills (without fever) (principal); R51.9 Headache, unspecified; R19.7 Diarrhea, unspecified; Z79.899 Other long term (current) drug therapy; Z03.818 Encounter for observation for suspected exposure to other biological agents ruled out
CPT/HCPCS: 0241U; 36415; 80053; 81001; 81025; 85025; 87086; 99283; 99284

== ENCOUNTER 2024-03-04 17:47 | Emergency (ER) | payer MEDICAID, SELFPAY ==
--- NOTE | ~2024-03-04 | CT_ITS ---
EXAMINATION: CT HEAD WITHOUT CONTRAST CLINICAL INFORMATION: Headache COMPARISON: CT head 04/23/2022 TECHNIQUE: Contiguous axial imaging was performed from the skull base to vertex without intravenous administration of contrast. This CT examination was performed using dose optimization techniques as appropriate, variously including the following: *Automated exposure control *Adjustment of mA and/or kV according to patient size (this includes techniques or standardized protocols for targeted exams where dose is matched to indication/reason for exam; i.e. extremities or head) *Use of iterative reconstruction technique DLP: 580 mGy-cm FINDINGS: There is no evidence of acute intracranial hemorrhage or edematous large vessel territorial infarction. No abnormal mass effect or midline shift is seen. Sultana to white matter differentiation is well preserved. No abnormal extra-axial fluid collections are identified. The ventricles are normal in size. No abnormal attenuation in the brain parenchyma. No acute calvarial fracture.. Paranasal sinuses and mastoid air cells are well-aerated. CT/CT head/brain wo IV con IMPRESSION: No CT evidence of acute intracranial hemorrhage or edematous territorial infarction.. Electronically signed by: Afshin Parra MD 03/04/2024 08:08 PM [facility]
--- NOTE | ~2024-03-04 | CT_ITS ---
EXAMINATION: CT ABDOMEN AND PELVIS WITH CONTRAST CLINICAL INFORMATION: Chills and lower abd pain s/p ovarian cyst removal COMPARISON: CT abdomen/pelvis dated 09/13/2023 TECHNIQUE: Multidetector volumetric images were obtained from the superior aspect of the liver through the pubic symphysis following administration 85 mL of Omnipaque 350 intravenous contrast. Sagittal and coronal reformatted images were obtained on the technologist's workstation. Oral contrast: No This CT examination was performed using dose optimization techniques as appropriate, variously including the following: *Automated exposure control *Adjustment of mA and/or kV according to patient size (this includes techniques or standardized protocols for targeted exams where dose is matched to indication/reason for exam; i.e. extremities or head) *Use of iterative reconstruction technique DLP: 715 mGy-cm FINDINGS: LUNG BASES: The visualized lung bases are unremarkable. LIVER, GALLBLADDER, AND BILIARY TREE: The liver is normal in size, shape, and attenuation. No focal hepatic lesion or biliary ductal dilatation is present. The gallbladder is decompressed with no evidence of radiopaque gallstones, gallbladder wall thickening, or obvious pericholecystic inflammatory changes. PANCREAS: Unremarkable. SPLEEN: Unremarkable. ADRENAL GLANDS: Unremarkable. KIDNEYS AND URETERS: The kidneys are normal in size, shape, and attenuation. No hydronephrosis, hydroureter, or calculi seen. No perinephric stranding. BLADDER: Unremarkable. GASTROINTESTINAL TRACT: The small and large bowel are unremarkable. The appendix is unremarkable. ABDOMINAL WALL: No significant hernia is appreciated. LYMPH NODES: Normal. VASCULAR: Unremarkable. PELVIC VISCERA: Left ovarian cyst measures 1.9 x 1.3 x 1.4 cm and is likely physiologic and does not require further imaging follow-up. The uterus and right adnexa are unremarkable. OSSEOUS STRUCTURES: Unremarkable. CT/CT abdomen pelvis w IV con IMPRESSION: 1. No acute abnormality within the abdomen or pelvis. 2. Left ovarian cyst measures 1.9 cm, is likely physiologic and does not require further imaging follow-up. Fleischner guidelines were followed. Electronically signed by: Willow Anton MD 03/04/2024 11:35 PM [facility]
[2024-03-04 17:57] VITALS: BP 172/94; PULSE 68; RESP 20; TEMP 36.5; O2SAT 100; BMI 31.9
--- NOTE | 2024-03-04 18:02 | ED.GENADULT ---
HPI - General Adult General Chief complaint: Headache Stated complaint: headache (left side) Time Seen by Provider: 03/04/24 21:30 Source: patient Mode of arrival: ambulatory Limitations: no limitations History of Present Illness ED Provider: JACOB CORDOVA narrative: 38 yo female with PMH of ovarian cyst removal and bilateral fallopian tube removal last month, HTN, IBS, anemia, migraines, asthma, GERD, here with c/o persistent chills since her surgery and headaches which is unusual for her. She has had intermittent sharp shooting pains in her L side of face since the surgery she notes it is on and off since the procedure. She has not had any dental work and she has never had trigeminal neuralgia. Her biggest complaint is chills and lower abd pain she has reported this to her OBGYN and they did swabs which were negative including BV. She states she gets hot and cold chills since surgery and states she knows her body and is something is wrong. At first she did not want to wait for further work up but now agrees to CT scan imaging MD complaint: chills, headaches, abdominal pain Onset (ago): month(s) (1) Location: head and abdomen Radiation: non-radiation Severity: moderate Quality: stabbing and aching Pain Consistency: intermittent Relieving factors: none Exacerbating factors: movement Associated symptoms: fever/chills Treatments prior to arrival: none Related Data Home Medications ?Medication ?Instructions ?Recorded ?Confirmed albuterol sulfate 90 mcg/actuation 1 inh inhalation QID 01/15/20 12/05/23 aerosol inhaler (Proventil HFA) hizquxc-nduwosskliozi-nhzggqip 250 1 tab PO Q4-6H PRN Headache 01/15/20 12/05/23 mg-250 mg-65 mg tablet (Excedrin Migraine) loratadine 10 mg tablet (Allergy 10 mg PO DAILY 01/15/20 12/05/23 Relief (loratadine)) montelukast 10 mg tablet 10 mg PO BEDTIME 01/15/20 12/05/23 (Singulair) cholecalciferol (vitamin D3) 50 50 mcg PO DAILY 03/16/22 12/05/23 mcg (2,000 unit) capsule (Vitamin D3) lisinopril 10 mg tablet 10 mg PO DAILY 03/16/22 12/05/23 pantoprazole 40 mg tablet,delayed 40 mg PO BID 03/16/22 12/05/23 release fluticasone 250 mcg-salmeterol 50 1 ea inhalation BID 12/02/22 12/05/23 mcg/dose blistr powdr for inhalation (Advair Diskus) topiramate 25 mg tablet 25 mg PO BEDTIME 12/02/22 12/05/23 Previous Rx's ?Medication ?Instructions ?Recorded famotidine 20 mg tablet (Acid 20 mg PO BID #60 tabs 06/23/21 Fast Food Shift Supervisor (famotidine)) gdwkfkxbqr-uzombtssfqfhv-jmmjkjlg 1 cap PO Q8H PRN pain #3 caps 08/09/21 50 mg-300 mg-40 mg capsule (Fioricet) sumatriptan succinate 50 mg tablet 50 mg PO Q2-4H PRN migraine 03/24/22 headache #14 tabs acetaminophen 500 mg tablet 1,000 mg (2 x 500 mg) PO QID PRN 08/25/22 pain #30 tabs ibuprofen 600 mg tablet 600 mg PO Q6H PRN pain #20 tabs 08/25/22 ondansetron 4 mg disintegrating 4 mg PO Q8H #10 tabs 12/02/22 tablet propranolol 60 mg capsule,24 60 mg PO BEDTIME #90 caps 12/19/22 hr,extended release polyethylene glycol 3350 17 17 g PO DAILY #510 grams 06/02/23 gram/dose oral powder (Miralax) psyllium husk 3.4 gram/5.4 gram 1 tbsp PO BID #660 grams 06/02/23 oral powder (Metamucil) sucralfate 1 gram tablet (Carafate) 1 g PO TID #20 tabs 09/13/23 cyclobenzaprine 10 mg tablet 10 mg PO TID PRN muscle spasm #20 11/08/23 tabs cyclobenzaprine 10 mg tablet 10 mg PO TID #10 tabs 01/13/24 naproxen 500 mg tablet (Naprosyn) 500 mg PO BID #20 tabs 01/13/24 ibuprofen 600 mg tablet 600 mg PO Q6H PRN fever or pain 02/19/24 #30 tabs gabapentin 100 mg capsule 100 mg PO TID #30 caps 03/04/24 Allergies Allergy/AdvReac Type Severity Reaction Status Date / Time No Known Allergies Allergy Verified 03/04/24 18:01 [No Known Allergies*] Review of Systems Review of Systems: Constitutional : No Weight loss, No Fever, pos Chills ENT/Mouth : No sore throat, No Rhinorrhea Eyes: No Swelling, No Redness Cardiovascular : No Chest Pain, No SOB, NoEdema Respiratory : No Cough, No Sputum, No Wheezing Gastrointestinal : no Nausea, no Vomiting, no Diarrhea, positive abdominal Pain, No Hematochezia, No Melena Genitourinary : No Dysuria, No Urinary Frequency, No Hematuria, No Urgency Musculoskeletal : No joint pain, No Myalgias, No Joint Swelling Skin : No Skin Lesions, No rash Neuro : No Weakness, No Numbness, No Dizziness, pos Headache All other systems reviewed and are negative. [facility] Past Medical History Attestation statement: The following information was validated with the patient. Source: old records reviewed Medical History Simple ovarian cyst Hypertension IBS (irritable bowel syndrome) Fibromyalgia Asthma Migraines Surgical History Hx of colonoscopy History of esophagogastroduodenoscopy (EGD) History of loop electrical excision procedure (LEEP) Hx of tubal ligation Family History Family History Mother Diabetes HTN (hypertension) Asthma Brother Asthma Social History Social History Household Members: Children Are you a primary senior care provider to a significant other at home: No (children 15,10,8 Mother will assist with care) Do you presently have visiting nurse or other home services: No Alcohol intake: never Patient Tobacco Use Status: Never used Tobacco Smoked in Last 30 Days: No Use of substances other than those prescribed or required for medical reasons: No Substance Use Type: Marijuana Advance Directives: No Advance Directives Information Provided: No Do you have a plan to hurt others: No Plan Patient : No Current occupational status: employed 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 Oriented X3. No acute distress. Eyes: Pupils equal, round and reactive to light. ENT: Pharynx normal. TMs normal bilaterally Neck: Normal inspection. Neck supple. CVS: Normal heart rate and rhythm. Pulses normal. Respiratory: No respiratory distress. Breath sounds normal. Abdomen: Soft and mild suprapubic ttp no rebound or guarding Skin: Skin warm and dry. Normal skin color. Normal skin turgor. Extremities: No lower extremity edema. Neuro: Oriented X 3. No motor deficit. No sensory deficit. Course Course Course Narrative: RME: 38-year-old female presents to ED for left-sided headache with nausea and tingling. Patient states this is new type of headache or bluish history of migraines. Patient states also body aches. Patient also hypotensive. Patient took her meds this morning for blood pressure. Negative for any neuro signs. NIH score is 0. Labs head CT ordered. SARs ordered. Strep ordered. Medications Administered Discontinued Medications Generic Name Dose Route Start Last Admin Trade Name Freq PRN Reason Stop Dose Admin Iohexol 100 ml 03/04/24 22:39 03/04/24 22:39 Iohexol 350 Mg/Ml 100 Ml Infus..Btl IV 03/04/24 22:40 85 ml ONCE ONE Administration Ketorolac Tromethamine 15 mg 03/04/24 23:34 03/05/24 00:04 Ketorolac Tromethamine 15 Mg/Ml Vial IVPUSH 03/04/24 23:35 15 mg ONCE ONE Administration Potassium Chloride 40 meq 03/04/24 23:49 03/05/24 00:04 Potassium Chloride Er 20 Meq Tab.Er.Prt PO 03/04/24 23:50 40 meq ONCE ONE Administration Medical Decision Making Medical Decision Making [facility] Narrative: 38 yo female with PMH of ovarian cyst removal and bilateral fallopian tube removal last month, HTN, IBS, anemia, migraines, asthma, GERD, here with c/o headaches, chills and abdominal pain x 1 month at this time will need basic labs, CT scan for signs of post operative collection or changes, given duration of headache doubt TAPE MAKER infection or SAH it seems more like trigeminal neuralgia Differential Diagnosis Differential Diagnoses: The differential diagnosis associated with the presentation includes tension headache, trigeminal neuralgia, abdominal pain, post op issue Admission/Observation Consideration of admission/observation: Escalation of care including admission/observation considered Lab Data MDM Lab Attestation statement: I reviewed the patient's lab results. 03/04/24 18:19 03/04/24 18:19 Labs: Lab Results 03/04/24 Range/Units 18:19 WBC 6.8 (4.8-10.8) X10*3/uL RBC 4.14 L (4.20-5.50) X10*6/uL Hgb 11.9 L (12.0-16.0) g/dl Hct 36.2 L (37.0-47.0) % MCV 87.4 (80.0-98.0) fL MCH 28.7 (27.0-33.0) pg MCHC 32.9 (31.0-35.0) g/dl RDW 13.4 (11.0-16.0) % Plt Count 236 (160-400) X10*3/uL MPV 11.0 (9.4-12.3) fL Immature Gran % (Auto) 0.1 (0.0-0.4) % Neut % (Auto) 38.9 L (45-73) % Lymph % (Auto) 52.3 H (20-40) % [place] % (Auto) 6.4 (2-11) % Eos % (Auto) 1.9 (0-4) % Baso % (Auto) 0.4 (0-2) % Lymph # (Auto) 3.6 (1.2-4.9) X10*3/uL [place] # (Auto) 0.4 (0.1-1.2) X10*3/uL Eos # (Auto) 0.1 (0.0-0.4) X10*3/uL Baso # (Auto) 0.0 (0.0-0.2) X10*3/uL Abs Immat Gran (auto) 0.01 (0.00-0.03) X10*3/uL Absolute Neuts (auto) 2.7 (2.0-8.3) x10*3/uL Absolute Nucleated RBC 0.000 (0.0-0.012) X10*3/uL Nucleated RBC % (auto) 0.0 (0.0-0.2) /100WBC PT 12.1 (10.9-12.4) SEC INR 1.0 (0.9-1.1) APTT 30.1 (26.0-36.8) SEC Sodium 140 (135-145) mmol/L Potassium 3.1 L D (3.3-5.1) mmol/L Chloride 108 (96-108) mmol/L Carbon Dioxide 25 (22-29) mmol/L Anion Gap 10 L (12-20) BUN 10 (9-16) mg/dL Creatinine 1.16 (0.5-1.4) mg/dL Estim Creat Clear Calc 75.6 Estimated GFR 53 Random Glucose 97 (60-115) mg/dL Calcium 9.3 (8.4-10.2) mg/dL Total Bilirubin 0.3 (0.0-1.0) mg/dL AST 55 H (5-31) U/L ALT 12 (0-31) U/L Alkaline Phosphatase 55 (39-117) U/L Troponin I High Sens < 2.7 (<3.5-17.0) ng/L Total Protein 7.1 (6.5-8.0) g/dL Albumin 4.2 (3.5-5.0) g/dL Influenza Type A (PCR) NEGATIVE (Negative) Influenza Type B (PCR) NEGATIVE (Negative) RSV RNA Qual (PCR) NEGATIVE (Negative) SARS-CoV-2 RNA (RT-PCR) NEGATIVE (Negative) S. pyogenes GrpA LETITIA Negative (Negative) Independent Interpretation I performed an independent interpretation of an: CT Scan Radiology Impression Discussion of test interpretation with radiology: I have reviewed the radiologist's reading. External Record Review External record reviewed: Outpatient record Discharge Plan Discharge Clinical Impression: Acute hypokalemia Ovarian cyst Qualifiers: Laterality: right Qualified Code(s): N83.201 - Unspecified ovarian cyst, right side Headache Qualifiers: Headache type: unspecified Headache chronicity pattern: chronic headache Intractability: not intractable Qualified Code(s): R51.9 - Headache, unspecified Patient Disposition: Home, Self-Care Instructions: Ovarian Cyst (ED), Hypokalemia (ED), Acute Headache (ED) Additional Instructions: labs reassuring other than mildly low potassium which we repleted return for any worsening symptoms or concerns please follow up with your doctor and your surgeon CT/CT abdomen pelvis w IV con IMPRESSION: 1. No acute abnormality within the abdomen or pelvis. 2. Left ovarian cyst measures 1.9 cm, is likely physiologic and does not require further imaging follow-up. CT/CT head/brain wo IV con IMPRESSION: No CT evidence of acute intracranial hemorrhage or edematous territorial infarctio Prescriptions: New gabapentin 100 mg capsule 100 mg PO TID Qty: 30 0RF No Action famotidine [Acid Fast Food Shift Supervisor (famotidine)] 20 mg tablet 20 mg PO BID Qty: 60 6RF propranolol 60 mg capsule,extended release 24 hr 60 mg PO BEDTIME Qty: 90 1RF rwraiymbbz-tvopptnbeitce-revf [Fioricet] 50-300-40 mg capsule 1 cap PO Q8H PRN (Reason: pain) Qty: 3 0RF acetaminophen 500 mg tablet 1,000 mg PO QID PRN (Reason: pain) Qty: 30 0RF ibuprofen 600 mg tablet 600 mg PO Q6H PRN (Reason: pain) Qty: 20 0RF cyclobenzaprine 10 mg tablet 10 mg PO TID Qty: 10 0RF naproxen [Naprosyn] 500 mg tablet 500 mg PO BID Qty: 20 0RF sucralfate [Carafate] 1 gram tablet 1 g PO TID Qty: 20 0RF cyclobenzaprine 10 mg tablet 10 mg PO TID PRN (Reason: muscle spasm) Qty: 20 0RF ibuprofen 600 mg tablet 600 mg PO Q6H PRN (Reason: fever or pain) Qty: 30 0RF albuterol sulfate [Proventil HFA] 90 mcg/actuation HFA aerosol inhaler 1 inh inhalation QID montelukast [Singulair] 10 mg tablet 10 mg PO BEDTIME loratadine [Allergy Relief (loratadine)] 10 mg tablet 10 mg PO DAILY Excedrin Migraine 250-250-65 mg tablet 1 tab PO Q4-6H PRN (Reason: Headache) lisinopril 10 mg tablet 10 mg PO DAILY cholecalciferol (vitamin D3) [Vitamin D3] 50 mcg (2,000 unit) capsule 50 mcg PO DAILY pantoprazole 40 mg tablet,delayed release (DR/EC) 40 mg PO BID sumatriptan succinate 50 mg tablet 50 mg PO Q2-4H PRN (Reason: migraine headache) Qty: 14 3RF Rx Instructions: do not exceed 4 doses per 24 hrs fluticasone propion-salmeterol [Advair Diskus] 250-50 mcg/dose blister with device 1 ea inhalation BID topiramate 25 mg tablet 25 mg PO BEDTIME ondansetron 4 mg tablet,disintegrating 4 mg PO Q8H Qty: 10 0RF polyethylene glycol 3350 [Miralax] 17 gram/dose powder 17 g PO DAILY Qty: 510 2RF Metamucil 3.4 gram/5.4 gram powder 1 tbsp PO BID Qty: 660 2RF Rx Instructions: mix into at least 8 oz of water or juice before administering Stand Alone Forms: Work/School Release Interventions: ED Discharge Assessment Last Done: 03/04/24 23:56 Discharge Date/Time: 03/05/24 00:13 Print Language: [place]
--- NOTE | 2024-03-04 18:03 | ECG_ITS ---
Test Reason : HEADACHE Blood Pressure : / mmHG Vent. Rate : 060 BPM Atrial Rate : 060 BPM P-R Int : 142 ms QRS Dur : 094 ms QT Int : 404 ms P-R-T Axes : 017 031 051 degrees QTc Int : 404 ms Normal sinus rhythm Normal ECG When compared with ECG of 22-MAR-2022 15:41, No significant change was found Referred By: Rahul Weber Electronically Signed By:ADAM ALCALA MD
[2024-03-04 18:24] LABS: MANUAL DIFF FLAG NO
[2024-03-04 18:31] LABS: Prothrombin Time 12.1 SEC (10.9-12.4)
[2024-03-04 18:33] LABS: IDNOW Serial# 08D9AD1C; Partial Thromboplastin Time 30.1 SEC (26.0-36.8); Strep A Nucleic Acid Negative (Negative)
[2024-03-04 18:44] LABS: Basophils Percent Auto 0.4 % (0-2); Eosinophils Absolute Auto 0.1 X10*3/uL (0.0-0.4); Eosinophils Percent Auto 1.9 % (0-4); Hematocrit 36.2 % (37.0-47.0); Hemoglobin 11.9 g/dl (12.0-16.0); Imm Gran Abs Auto 0.01 X10*3/uL (0.00-0.03); Imm Gran Pct Auto 0.1 % (0.0-0.4); Lymphocytes Absolute Auto 3.6 X10*3/uL (1.2-4.9); Lymphocytes Percent Auto 52.3 % (20-40); Mean Corpuscular HGB Conc 32.9 g/dl (31.0-35.0); Mean Corpuscular Hemoglobin 28.7 pg (27.0-33.0); Mean Corpuscular Volume 87.4 fL (80.0-98.0); Monocytes Absolute Auto 0.4 X10*3/uL (0.1-1.2); Monocytes Percent Auto 6.4 % (2-11); Neutrophils Absolute Auto 2.7 x10*3/uL (2.0-8.3); Neutrophils Percent Auto 38.9 % (45-73); Platelet Count 236 X10*3/uL (160-400); Red Blood Count 4.14 X10*6/uL (4.20-5.50); Red Cell Distribution Width 13.4 % (11.0-16.0); White Blood Count 6.8 X10*3/uL (4.8-10.8)
[2024-03-04 18:50] LABS: Albumin Level 4.2 g/dL (3.5-5.0); Anion Gap 10 (12-20); Aspartate Amino Transferase 55 U/L (5-31); Bilirubin Total 0.3 mg/dL (0.0-1.0); Blood Urea Nitrogen 10 mg/dL (9-16); Calcium 9.3 mg/dL (8.4-10.2); Carbon Dioxide 25 mmol/L (22-29); Chloride 108 mmol/L (96-108); Creatinine Clr Calc Pharmacy 75.6; Estimated Glomerular Filt Rate 53; Glucose Random 97 mg/dL (60-115); Potassium 3.1 mmol/L (3.3-5.1); Sodium 140 mmol/L (135-145); Total Protein 7.1 g/dL (6.5-8.0)
[2024-03-04 18:56] LABS: Alanine Aminotransferase 12 U/L (0-31); Alkaline Phosphatase 55 U/L (39-117); Troponin-I High Sensitivity < 2.7 ng/L (<3.5-17.0)
[2024-03-04 19:04] LABS: Influenza A PCR NEGATIVE (Negative); Influenza B PCR NEGATIVE (Negative); Resp Syncy Virus RNA Qual PCR NEGATIVE (Negative); SARS COV2 PCR INHOUSE NEGATIVE (Negative)
[2024-03-04] MEDS: iohexoL 350 MG/ML 100 ML INFUS..BTL IV (22:39)
[2024-03-04 23:56] VITALS: BP 140/103; PULSE 68; RESP 18; TEMP 36.7; O2SAT 98
[2024-03-05] MEDS: Potassium Chloride ER 20 MEQ TAB.ER.PRT 40 MEQ PO (00:04)
[2024-03-05] MEDS: Ketorolac Tromethamine 15 MG/ML VIAL IVPUSH (00:04)
== END 2024-03-05 00:13 | disposition home or self-care (01) ==
PROVIDERS: Physician Assistant; Emergency Provider Emergency Medicine; PCP Family Medicine
DX: E87.6 Hypokalemia (principal); R51.9 Headache, unspecified; R10.2 Pelvic and perineal pain; N83.201 Unspecified ovarian cyst, right side; R50.9 Fever, unspecified; Z79.899 Other long term (current) drug therapy; Z03.818 Encounter for observation for suspected exposure to other biological agents ruled out
CPT/HCPCS: 0241U; 36415; 70450; 74177; 80053; 84484; 85025; 85610; 85730; 87651; 93005; 96374; 99284; 99285; J1885; Q9967

== ENCOUNTER → 2024-03-04 18:03 | Outpatient (BNV) | payer MEDICAID, SELFPAY | PROVIDERS: Emergency Provider Emergency Medicine; PCP Family Medicine; Visit Provider Internal Medicine Cardiovascular Disease | DX: R51.9 Headache, unspecified (principal) | CPT/HCPCS: 93010 ==

== ENCOUNTER 2024-03-11 15:19 | Outpatient (REF) | payer MEDICAID, SELFPAY ==
[2024-03-11 17:04] LABS: Anion Gap 13 (12-20); Blood Urea Nitrogen 14 mg/dL (9-16); Calcium 9.4 mg/dL (8.4-10.2); Carbon Dioxide 22 mmol/L (22-29); Chloride 107 mmol/L (96-108); Estimated Glomerular Filt Rate > 60; Glucose Random 86 mg/dL (60-115); Potassium 3.9 mmol/L (3.3-5.1); Sodium 138 mmol/L (135-145)
== END 2024-03-11 15:20 | disposition home or self-care (01) ==
LOC: HO.HHCL 15:19
PROVIDERS: Visit Provider Family Medicine
DX: E87.6 Hypokalemia (principal)
CPT/HCPCS: 36415; 80048

== ENCOUNTER 2024-03-26 11:06 | Outpatient (REF) | payer MEDICAID, SELFPAY ==
[2024-03-26 13:30] LABS: MANUAL DIFF FLAG NO
[2024-03-26 13:37] LABS: Basophils Percent Auto 0.3 % (0-2); Eosinophils Absolute Auto 0.1 X10*3/uL (0.0-0.4); Eosinophils Percent Auto 1.1 % (0-4); Hemoglobin 12.7 g/dl (12.0-16.0); Imm Gran Abs Auto 0.01 X10*3/uL (0.00-0.03); Imm Gran Pct Auto 0.1 % (0.0-0.4); Lymphocytes Absolute Auto 3.4 X10*3/uL (1.2-4.9); Lymphocytes Percent Auto 47.5 % (20-40); Mean Corpuscular HGB Conc 32.6 g/dl (31.0-35.0); Mean Corpuscular Hemoglobin 28.7 pg (27.0-33.0); Mean Platelet Volume 10.8 fL (9.4-12.3); Monocytes Absolute Auto 0.5 X10*3/uL (0.1-1.2); Monocytes Percent Auto 7.4 % (2-11); Neutrophils Absolute Auto 3.1 x10*3/uL (2.0-8.3); Neutrophils Percent Auto 43.6 % (45-73); Platelet Count 318 X10*3/uL (160-400); Red Blood Count 4.43 X10*6/uL (4.20-5.50); Red Cell Distribution Width 13.9 % (11.0-16.0); White Blood Count 7.1 X10*3/uL (4.8-10.8)
[2024-03-26 13:56] LABS: Anion Gap 11 (12-20); Blood Urea Nitrogen 16 mg/dL (9-16); Calcium 9.1 mg/dL (8.4-10.2); Carbon Dioxide 22 mmol/L (22-29); Chloride 111 mmol/L (96-108); Estimated Glomerular Filt Rate > 60; Glucose Fasting 90 mg/dL (60-99); Magnesium 2.4 mg/dL (1.6-2.6); Potassium 3.9 mmol/L (3.3-5.1); Sodium 140 mmol/L (135-145)
[2024-03-26 14:11] LABS: TSH reflex Free T4 1.53 uIU/mL (0.32-4.0)
[2024-03-26 14:25] LABS: Folate 7.1 ng/mL (> or = 4.0); Vitamin B12 326 pg/mL (200-900)
== END 2024-03-26 11:07 | disposition home or self-care (01) ==
LOC: HO.HHCL 11:06
PROVIDERS: Visit Provider Internal Medicine
DX: E87.6 Hypokalemia (principal); R61 Generalized hyperhidrosis
CPT/HCPCS: 36415; 80048; 82607; 82746; 83735; 84443; 85025

== ENCOUNTER 2024-04-29 23:52 | Emergency (ER) | payer MEDICAID, SELFPAY ==
--- NOTE | ~2024-04-29 | CT_ITS ---
CLINICAL HISTORY: L. abd flank pain x [address] abdomen and pelvis with contrast Comparison: CT/SR - CT ABDOMEN PELVIS W IV CON - 03/04/24 22:[address]/IN/SR - CT ABDOMEN PELVIS WO IV CON - 09/13/23 15:[address]/REG/SR - CT ABDOMEN PELVIS WO IV CON - 06/11/22 22:55 EDT Findings: 19 mm mass versus focal fibroglandular tissue within the outer aspect of the right breast. This area was not imaged on the patient's prior exams. Lung bases are clear. The gallbladder and solid organs are within normal limits. No renal stones. No bowel obstruction, pneumoperitoneum, or pneumatosis. Pelvic contents unremarkable. Normal appendix. No fluid collections or adenopathy. Nonaneurysmal aorta. No acute fracture. IMPRESSION: No findings to explain left-sided flank or abdominal pain. Asymmetric area of density within the outer aspect of the right breast that could be focal dense breast tissue or a mass measuring 19 mm. Diagnostic mammogram recommended. This document has been electronically signed by: Monie Jenkins MD on 04/30/2024 05:22:49
[2024-04-30 00:47] VITALS: BP 112/72; PULSE 69; RESP 16; TEMP 36.9; O2SAT 100; BMI 33.1
[2024-04-30 01:14] LABS: MANUAL DIFF FLAG NO
[2024-04-30 01:15] LABS: Basophils Percent Auto 0.4 % (0-2); Eosinophils Absolute Auto 0.1 X10*3/uL (0.0-0.4); Eosinophils Percent Auto 1.3 % (0-4); Hematocrit 35.4 % (37.0-47.0); Hemoglobin 11.6 g/dl (12.0-16.0); Imm Gran Abs Auto 0.02 X10*3/uL (0.00-0.03); Imm Gran Pct Auto 0.3 % (0.0-0.4); Mean Corpuscular HGB Conc 32.8 g/dl (31.0-35.0); Mean Corpuscular Hemoglobin 28.9 pg (27.0-33.0); Mean Corpuscular Volume 88.1 fL (80.0-98.0); Mean Platelet Volume 9.7 fL (9.4-12.3); Monocytes Absolute Auto 0.5 X10*3/uL (0.1-1.2); Monocytes Percent Auto 5.9 % (2-11); Neutrophils Percent Auto 39.1 % (45-73); Platelet Count 255 X10*3/uL (160-400); Red Blood Count 4.02 X10*6/uL (4.20-5.50); Red Cell Distribution Width 14.2 % (11.0-16.0); White Blood Count 7.6 X10*3/uL (4.8-10.8)
[2024-04-30 01:16] LABS: Appearance Urine Clear; Color Urine Yellow; Glucose Urine UA Negative (Negative); Leukocyte Esterase Urine Negative (Negative); Nitrite Urine Negative (Negative); PH 5.5 (5.0-9.0); Specific Gravity - Urine 1.025 (1.005-1.025); Urine Blood Negative (Negative); Urine Ketones Negative (Negative); Urine Protein Negative (Neg-Trace)
[2024-04-30 01:19] LABS: Bacteria Urine Trace (None Seen); Hyaline Casts Urine 0-2 /LPF (0-2); RBC Urine 0-2 /HPF (0-2); WBC Urine 0-5 /HPF (0-5)
[2024-04-30 01:34] LABS: Alanine Aminotransferase 8 U/L (0-31); Albumin Level 3.9 g/dL (3.5-5.0); Anion Gap 12 (12-20); Aspartate Amino Transferase 16 U/L (5-31); Bilirubin Total 0.3 mg/dL (0.0-1.0); Blood Urea Nitrogen 11 mg/dL (9-16); Calcium 8.9 mg/dL (8.4-10.2); Carbon Dioxide 24 mmol/L (22-29); Chloride 108 mmol/L (96-108); Creatinine Clr Calc Pharmacy 101.5; Estimated Glomerular Filt Rate > 60; Glucose Random 95 mg/dL (60-115); Lipase 86 U/L (8-78); Potassium 4.1 mmol/L (3.3-5.1); Sodium 140 mmol/L (135-145); Total Protein 7.2 g/dL (6.5-8.0)
[2024-04-30 01:35] LABS: HCG Quantitative < 2 mIU/mL
--- OUTSIDE RECORDS SUMMARY | 2024-04-30 02:12 | XMS_ITS | Encounter Summary ---
Author Organization [employer] Address [address] [place] [address] [address] [place] [address] Care Team Providers Care Meat Cutting Block Repairer Name Role Phone Lu Estrada MD Primary Care Provider [phone] Encounter Details Date Type Department Care Team (Latest Contact Info) Description 07/08/2020 Abstract [facility] CONVERSIONS Dental, Provider, DDS Social History Tobacco Use Types Packs/Day Years Used Date Smoking Tobacco: Never Assessed Comments Unknown Sex and Gender Information Value Date Recorded Sex Assigned at Female 01/24/2022 10:15 AM EDT Legal Sex Female 10:15 AM EDT Gender Identity Female 01/24/2022 10:15 AM EDT Sexual Orientation Choose not to disclose 2021 10:15 AM EDT documented as of this encounter Plan of Treatment Upcoming Encounters Date Type Department Care Team (Late st Contact Info) Description 05/22/2024 2:30 PM EST Medication Management [facility] MEDICINE [address] [place] [address] Praful Weiner, PharmD [address] [place] [address] 06/18/2024 9:45 AM EDT Office Visit [facility] OPTOMETRY [address] [place] [address] Aziza Mckoy, OD [address] [place] [address] 09/11/2024 10:00 AM EDT Office Visit [facility] ADULT DENTAL [address] [place] [address] Heidi Ennis [address] [place] [address] documented as of this encounter Visit Diagnoses Not on filedocumented in this encounter Care Teams Meat Cutting Block Repairer Relationship Specialty Start Date End Date Lu Estrada MD [address] [place] [address] PCP - General Family Medicine 03/27/18 documented as of this encounter
--- OUTSIDE RECORDS SUMMARY | 2024-04-30 02:12 | XMS_ITS | Encounter Summary ---
Author Organization [employer] Address [address] [place] [address] 7[address] [place] [address] Care Team Providers Care Equine Vet Name Role Phone Lu Estrada MD Primary Care Provider [phone] Encounter Details Date Type Department Care Team (Late st Contact Info) Description 04/19/2022 Orders Only [facility] MEDICINE [address] [place] [address] Lu Estrada MD [address] [place], [place] [phone] Social History Tobacco Use Types Packs/Day Years Used Date Smoking Tobacco: Never Passive Smoke Exposure: Never Smokeless Tobacco: Never Alcohol Use Standard Drinks/Week Comments Never 0 (1 standard drink = 0.6 oz pur e alcohol) Comments Unknown Sex and Gender Information Value Date Recorded Sex Assigned at Female 01/24/2022 10:15 AM EDT Legal Sex Female 10:15 AM EDT Gender Identity Female 01/24/2022 10:15 AM EDT Sexual Orientation Choose not to disclose 2021 10:15 AM EDT documented as of this encounter Plan of Treatment Upcoming Encounters Date Type Department Care Team (Late Contact Info) Description 05/22/2024 2:30 PM EST Medication Management [facility] MEDICINE [address] [place] [address] Praful Weiner, PharmD [address] [place] [address] 06/18/2024 9:45 AM EDT Office Visit [facility] OPTOMETRY [address] [place] [address] Lorenayvette Aziza, OD [address] [place] [address] 09/11/2024 10:00 AM EDT Office Visit [facility] ADULT DENTAL [address] [place] [address] Raymon, Heidi [address] [place] [address] documented as of this encounter Visit Diagnoses Not on filedocumented in this encounter Care Teams Equine Vet Relationship Specialty Start Date End Date Lu Estrada MD [address] [place] [address] PCP - General Family Medicine 03/27/18 documented as of this encounter
--- OUTSIDE RECORDS SUMMARY | 2024-04-30 02:12 | XMS_ITS | Encounter Summary ---
Author Organization [employer] Address [address] [place] [address] 7 [place] [address] Care Team Providers Care Sheet Heater Helper Name Role Phone Lu Estrada MD Primary Care Provider [phone] Reason for Visit * Reason Comments Med Refill Encounter Details Date Type Department Care Team (Late st Contact Info) Description 04/19/2022 Refill [facility] MEDICINE [address] [place] [address] Leatha Chong MD [address] [place], [place] [phone] Primary hypertension (Primary Dx) Social History Tobacco Use Types Packs/Day Years [...] Description 05/22/2024 2:30 PM EST Medication Management [facility] MEDICINE [address] [place] [address] Praful Weiner, PharmD [address] [place] [address] 06/18/2024 9:45 AM EDT Office Visit [facility] OPTOMETRY [address] [place] [address] LorenayvetteAziza, OD [address] [place] [address] 09/11/2024 10:00 AM EDT Office Visit [facility] ADULT DENTAL [address] [place] [address] Raymon, Heidi [address] [place] [address] documented as of this encounter Visit Diagnoses Diagnosis Primary hypertension- Primary Unspecified essential hypertension documented in this encounter Care Teams Sheet Heater Helper Relationship Specialty Start Date End Date Lu Estrada MD [address] [place] [address] PCP - General Family Medicine 03/27/18 documented as of this encounter
--- OUTSIDE RECORDS SUMMARY | 2024-04-30 02:12 | XMS_ITS | Encounter Summary ---
Author Organization [employer] Address [address] [place] [address] 7t [place] [address] Care Team Providers Care Air Conditioning Technician Name Role Phone Lu Estrada MD Primary Care Provider [phone] Reason for Visit * Reason Comments Med Refill Encounter Details Date Type Department Care Team ([facility] Contact Info) Description 04/22/2022 Refill [facility] CHC MED & PEDS [address] [place], [place] [phone] Vandana Black ANP [address] [place], [place] [phone] Social History Tobacco Use Types Packs/Day Years [...] not to disclose 2021 10:15 AM EDT COVID-19 Exposure Response Date Recorded In the last 10 days, have yo u been in contact with someone who was confirmed or suspected to have Coronavirus/COVID-19? No / Unsure 04/25/2022 10:45 AM EST documented as of this encounter Plan of Treatment Upcoming Encounters Date Type Department Care Team ([facility] Contact Info) Description 05/22/2024 2:30 PM EST Medication Management [facility] MEDICINE [address] [place] [address] Praful Weiner, PharmD [address] [place] [address] 06/18/2024 9:45 AM EDT Office Visit [facility] OPTOMETRY [address] [place] [address] Aziza Mckoy, OD [address] [place] [address] 09/11/2024 10:00 AM EDT Office Visit [facility] ADULT DENTAL [address] [place] [address] Heidi Ennis [address] [place] [address] documented as of this encounter Visit Diagnoses Not on filedocumented in this encounter Care Teams Air Conditioning Technician Relationship Specialty Start Date End Date Lu Estrada MD [address] [place] [address] PCP - General Family Medicine 03/27/18 documented as of this encounter
--- OUTSIDE RECORDS SUMMARY | 2024-04-30 02:12 | XMS_ITS | Encounter Summary ---
Author Organization [employer] Address [address] [place] [address] [address]t [place] [address] Care Team Providers Care Enamel Sprayer Name Role Phone Lu Estrada MD Primary Care Provider [phone] Encounter Details Date Type Department Care Team (Latest Contact Info) Description 01/01/2019 Abstract [facility] CONVERSIONS Dental, Provider, DDS Social History Tobacco [...] Description 05/22/2024 2:30 PM EST Medication Management [facility] MEDICINE [address] [place] [address] Praful Weiner, PharmD [address] [place] [address] 06/18/2024 9:45 AM EDT Office Visit [facility] OPTOMETRY [address] [place] [address] Aziza Mckoy, OD [address] [place] [address] 09/11/2024 10:00 AM EDT Office Visit [facility] ADULT DENTAL [address] [place] [address] Mc Ennisaris [address] [place] [address] documented as of this encounter Visit Diagnoses Not on filedocumented in this encounter Care Teams Enamel Sprayer Relationship Specialty Start Date End Date Lu Estrada MD [address] [place] [address] PCP - General Family Medicine 03/27/18 documented as of this encounter
--- OUTSIDE RECORDS SUMMARY | 2024-04-30 02:12 | XMS_ITS | Encounter Summary ---
Author Organization [employer] Address [address] [place] [address] Care Team Providers Care Division Engineer Name Role Phone Lu Estrada MD Primary Care Provider [phone] Encounter Details Date Type Department Care Team ([facility] st Contact Info) Description 05/29/2023 Abstract [facility] MEDICINE [address] [place] [address] Lu Estrada MD [address] [place] [address] Social History Tobacco Use Types Packs/Day Years Used Date Smoking Tobacco: Never Passive Smoke Exposure: Never Smokeless Tobacco: Never Alcohol Use Standard Drinks/Week Comments Never 0 (1 standard drink = 0.6 oz pur e alcohol) Depression Answer Date Recorded Patient Health Questionnaire-9 Score 0 03/08/2023 Patient Health Questionnaire-9 Score 0 03/08/2023 Last PHQ-9: Questionnaire Data Not on file 1 05/09/2022 Housing Stability Answer Date Recorded What is your housing situation today? I have cassy trevino 03/08/[address] you li ve. Do you have problems with any of the following? None of the above 03/08/2023 Food Insecurity Answer Date Recorded Within the past 12 months, y ou worried that your food would run out before you got money to buy more: Never True 03/08/2023 Within the past 12 months,th e food you bought just didn't last and you didn't have enough money to get more: Never True Transportation Answer Date Recorded In the past 12 months, has l ack of transportation kept you from medical appts, meetings, work or from getting things needed for daily living? No 03/08/2023 Utilities Answer Date Recorded In the past 12 months, has t he electric, gas, oil or water company threatened to shut off services in your home? No 03/08/2023 Depression Answer Date Recorded Patient Health Questionnaire-2 Score 0 03/08/2023 Comments Unknown Sex and Gender Information Value [...] Description 05/22/2024 2:30 PM EST Medication Management [facility] MEDICINE [address] [place] [address] Praful Weiner, PharmD [address] [place] [address] 06/18/2024 9:45 AM EDT Office Visit [facility] OPTOMETRY [address] [place] [address] TarAziza crawford, OD [address] [place] [address] 09/11/2024 10:00 AM EDT Office Visit [facility] ADULT DENTAL [address] [place] [address] Raymon, Heidi [address] [place] [address] documented as of this encounter Procedures Procedure Name Priority Date/Time Associated Diagnosis Comments COLONOSCOPY Routine 05/20/2023 documented in this encounter Results * Colonoscopy (05/20/2023) Colonoscopy Normal Normal, Abnormal, BIRADS 0 , BIRADS 1 , BIRADS 2, BIRADS 3 , BIRADS 4+ Historical Provider HEALTH MAINTENANCE Final Result documented in this encounter Visit Diagnoses Not on filedocumented in this encounter Additional Health Concerns Assessment Noted Time PHQ-9 Depression Total Score: 0 03/08/20 23 11:18 AM EST documented as of this encounter Care Teams Division Engineer Relationship Specialty Start Date End Date Lu Estrada MD [address] [place] [address] PCP - General Family Medicine 03/27/18 documented as of this encounter
--- OUTSIDE RECORDS SUMMARY | 2024-04-30 02:12 | XMS_ITS | Encounter Summary ---
Author Organization [employer] Address [address] [facility] [address]t [place] [address] Care Team Providers Care Metal Turner Name Role Phone Lu Estrada MD Primary Care Provider [phone] Encounter Details Date Type Department Care Team (Late st Contact Info) Description 04/04/2022 Abstract [facility] ADULT DENTAL [address] [place] [address] Viet Kellogg DDS [address] [place] [address] Social History Tobacco Use Types Packs/Day Years [...] Description 05/22/2024 2:30 PM EST Medication Management [facility] MEDICINE [address] [place] [address] Praful Weiner, PharmD [address] [place] [address] 06/18/2024 9:45 AM EDT Office Visit [facility] OPTOMETRY [address] [place] [address] Leelee Aziza, OD [address] [place] [address] 09/11/2024 10:00 AM EDT Office Visit [facility] ADULT DENTAL [address] [place] [address] Raymon, Heidi [address] [place] [address] documented as of this encounter Visit Diagnoses Not on filedocumented in this encounter Care Teams Metal Turner Relationship Specialty Start Date End Date Lu Estrada MD [address] [place] [address] PCP - General Family Medicine 03/27/18 documented as of this encounter
--- OUTSIDE RECORDS SUMMARY | 2024-04-30 02:12 | XMS_ITS | Encounter Summary ---
Author Organization [employer] Address [address] [place] [address] 7 [place] [address] Care Team Providers Care Mice Raiser Name Role Phone Lu Estrada MD Primary Care Provider Reason for Visit * Reason Comments Med Refill Encounter Details Date Type Department Care Team (Late st Contact Info) Description 06/08/2022 Refill [facility] MEDICINE [address] [place] [address] Name, MD Danny [address] [place] [address] Social History Tobacco Use Types Packs/Day Years [...] Description 05/22/2024 2:30 PM EST Medication Management [facility] MEDICINE [address] [place] [address] Praful Weiner, PharmD [address] [place] [address] 06/18/2024 9:45 AM EDT Office Visit [facility] OPTOMETRY [address] [place] [address] Aziza Mckoy, OD [address] [place] [address] 09/11/2024 10:00 AM EDT Office Visit [facility] ADULT DENTAL [address] [place] [address] Raymon Heidi [address] [place] [address] documented as of this encounter Visit Diagnoses Not on filedocumented in this encounter Care Teams Mice Raiser Relationship Specialty Start Date End Date Lu Estrada MD [address] [place] [address] PCP - General Family Medicine 03/27/18 documented as of this encounter
--- OUTSIDE RECORDS SUMMARY | 2024-04-30 02:12 | XMS_ITS | Encounter Summary ---
Author Organization [employer] Address [address] [address] [facility] [facility] [address] [place] [address] Care Team Providers Care Director Blood Bank Name Role Phone Lu Estrada MD Primary Care Provider [phone] Encounter Details Date Type Department Care Team ([facility] st Contact Info) Description 04/30/2024 Orders Only GENERIC EXTERNAL DATA DEPARTMENT Provider, Generic External Data Social History Tobacco Use Types Packs/Day Years Used Date Smoking Tobacco: Never Passive Smoke Exposure: Never Smokeless Tobacco: Never Alcohol Use Standard Drinks/Week Comments Never 0 (1 standard drink = 0.6 oz pur e alcohol) Alcohol Answer Date Recorded Frequency of Alcohol Consumption Not on file 01/22/2024 Average Number of Drinks Not on file 024 Frequency of Binge Drinking Not on file 12/26 Score 0 01/22/2024 Depression Answer Date Recorded Patient Health Questionnaire-9 Score 5 01/22/2024 Patient Health Questionnaire-9 Score 5 01/22/2024 Last PHQ-9: Questionnaire Data Not on file 1 Housing Stability Answer Date Recorded What is your housing situation today? I have cassy trevino 03/08/[address] you li ve. Do you have problems with any of the following? None of the above 03/08/2023 Food Insecurity Answer Date Recorded Within the past 12 months, y ou worried that your food would run out before you got money to buy more: Sometimes True 2023 Within the past 12 months,th e food you bought just didn't last and you didn't have enough money to get more: Sometimes True 01/22/2024 Transportation Answer Date Recorded In the past 12 months, has l ack of transportation kept you from medical appts, meetings, work or from getting things needed for daily living? No 03/08/2023 Utilities Answer Date Recorded In the past 12 months, has t he electric, gas, oil or water company threatened to shut off services in your home? Yes 01/22/2024 Depression Answer Date Recorded Patient Health Questionnaire-2 Score 1 01/22/2024 Internet Access Answer Date Recorded Internet Access Q1 Yes 01/22/2024 Internet Access Q2 Not on file 01/22/2024 Comments Unknown Sex and Gender Information Value [...] Description 05/22/2024 2:30 PM EST Medication Management [facility] [address] [place] [address] Praful Weiner, PharmD [address] [place] [address] 06/18/2024 9:45 AM EDT Office Visit [facility] [address] [place] [address] Tarka, Aziza, OD [address] [place] [address] 09/11/2024 10:00 AM EDT Office Visit [facility] [address] [place] [address] Heidi Ennis [address] [place] [address] Pending Results Name Type Priority Associated Diagnoses Date /Time Comprehensive Metabolic Panel Lab Routine 04/30/2024 1:09 AM EST Lipase Lab Routine 04/30/2024 1:0 9 AM EST hCG, Total, Quantitative Lab Routine 04/30/2024 1:09 AM EST documented as of this encounter Procedures Procedure Name Priority Date/Time Associated Diagnosis Comments URINALYSIS, COMPLETE, WITH REFLEX TO CULTURE Routine 04/30/2024 1:09 AM EST CBC WITH AUTO DIFFERENTIAL Routine 04/30/2024 1:09 AM EST HCG, TOTAL, QN Routine 04/30/2024 1:09 AM EST LIPASE Routine 04/30/2024 1:09 AM EST COMPREHENSIVE METABOLIC PANEL Routine 04/30/2024 1:09 AM EST documented in this encounter Results * Urinalysis, Complete, with Reflex to Culture (04/30/2024 1:09 AM EST) Color Urine Yellow [facility] Appearance Urine Clear [facility] PH 5.5 5.0 - 9.0 [facility] Glucose Urine UA Negative Negative mg/dL [facility] Urine Blood Negative Negative [facility] Specific [place] - Urine 1.025 1.005 - 1.025 [facility] Urine Protein Negative Neg-Trace mg/dL [facility] Urine Ketones Negative Negative mg/dL [facility] Nitrite Urine Negative Negative [facility] Leukocyte Esterase Urine Negative Negative [facility] RBC Urine 0-2 0 - 2 /HPF [facility] Urine WBC 0-5 0 - 5 /HPF [facility] Urine Squamous Epithelial Cell 3-5 0 - 2 /HPF [facility] Urine Bacteria Trace None Seen [facility] Hyaline Casts, Urine 0-2 0 - 2 /LPF [facility] 04/30/2024 1:09 AM EST 04/30/2024 1:13 AM EST Narrative [facility] - 04/30/2024 1:21 AM EST [id number], Clean Catch us Generic External Data Provider LAB URINE ORDERAB LES Final Result [facility] [address] [place] [address] [phone] * (ABNORMAL) CBC auto differential (04/30/2024 1:09 AM EST) White Blood Count 7.6 4.8 - 10.8 X10*3/uL [facility] Red Blood Count 4.02(L) 4.20 - 5.50 X10*6/uL [facility] Hemoglobin 11.6(L) 12.0 - 16.0 g/dl [facility] Hematocrit 35.4(L) 37.0 - 47.0 % [facility] Mean Corpuscular Volume 88.1 80.0 - 98.0 fL [facility] Mean Corpuscular Hemoglobin 28.9 27.0 - 33.0 pg [facility] Mean Corpuscular HGB Conc 32.8 31.0 - 35.0 g/dl [facility] Red Cell Distribution Width 14.2 11.0 - 16.0 % [facility] Platelet Count 255 160 - 400 X10*3/uL [facility] Mean Platelet Volume 9.7 9.4 - 12.3 fL [facility] Neutrophils Percent Auto 39.1(L) 45 - 73 % [facility] Imm Gran Pct Auto 0.3 0.0 - 0.4 % [facility] Lymphocytes Percent Auto 53.0(H) 20 - 40 % [facility] Monocytes Percent Auto 5.9 2 - 11 % [facility] Eosinophils Percent Auto 1.3 0 - 4 % [facility] Basophils Percent Auto 0.4 0 - 2 % [facility] NRBC Pct Auto 0.0 0.0 - 0.2 /100WBC [facility] Neutrophils Absolute Auto 3.0 2.0 - 8.3 x10*3/uL [facility] Imm Gran Abs Auto 0.02 0.00 - 0.03 X10*3/uL [facility] Lymphocytes Absolute Auto 4.0 1.2 - 4.9 X10*3/uL [facility] Monocytes Absolute Auto 0.5 0.1 - 1.2 X10*3/uL [facility] Eosinophils Absolute Auto 0.1 0.0 - 0.4 X10*3/uL [facility] Basophils Absolute Auto 0.0 0.0 - 0.2 X10*3/uL [facility] NRBC Abs Auto 0.000 0.0 - 0.012 X10*3/uL [facility] 04/30/2024 1:09 AM EST 04/30/2024 1:13 AM EST us Generic External Data Provider LAB BLOOD ORDERAB LES Final Result [facility] [address] [place] [address] [phone] documented in this encounter Visit Diagnoses Not on filedocumented in this encounter Additional Health Concerns Assessment Noted Time PHQ-9 Depression Total Score: 5 01/22/20 24 3:06 PM EDT documented as of this encounter Care Teams Director Blood Bank Relationship Specialty Start Date End Date Lu Estrada MD [address] [place] [address] PCP - General Family Medicine 03/27/18 documented as of this encounter
--- OUTSIDE RECORDS SUMMARY | 2024-04-30 02:12 | XMS_ITS | Encounter Summary ---
Author Organization [employer] Address [address] [place] [address] Care Team Providers Care Metal Treater Name Role Phone Lu Estrada MD Primary Care Provider [phone] Reason for Visit * Reason Onset Date Comments chart prep 04/24/2024 Encounter Details Date Type Department Care Team ([facility] st Contact Info) Description 04/24/2024 Telephone [facility] [address] [place] [address] Jordyn Brewster MA chart prep Social History Tobacco Use Types Packs/Day Years [...] AM EDT documented as of this encounter Miscellaneous Notes * Telephone Encounter - Jordyn Brewster MA - 04/24/2024 3:37 PM EST ..Chart Prep Labs: not applicable Images: not applicable Vaccines due: Updated Referrals: Completed Screenings: Not Applicable Overdue care gaps: [id number] documented in this encounter Plan of Treatment Upcoming Encounters Date Type Department Care Team (Late st Contact Info) Description 05/22/2024 2:30 PM EST Medication Management [facility] [address] [place] [address] rPaful Weiner, PharmD [address] [place] [address] 06/18/2024 9:45 AM EDT Office Visit [facility] [address] [place] [address] Aziza Mckoy, OD [address] [place] [address] 09/11/2024 10:00 AM EDT Office Visit [facility] [address] [place] [address] Heidi Ennis [address] [place] [address] documented as of this encounter Visit Diagnoses Not on filedocumented in this encounter Additional Health Concerns Assessment Noted Time PHQ-9 Depression Total Score: 5 01/21/ 24 3:06 PM EDT documented as of this encounter Care Teams Metal Treater Relationship Specialty Start Date End Date Lu Estrada MD [address] [place] [address] PCP - General Family Medicine 03/27/18 documented as of this encounter
--- OUTSIDE RECORDS SUMMARY | 2024-04-30 02:12 | XMS_ITS | Encounter Summary ---
Author Organization [employer] Address [address] [facility] 7[address] [place] [address] Care Team Providers Care Semi Automatic Sewing Machine Operator Name Role Phone Lu Estrada MD Primary Care Provider [phone] Reason for Visit * Reason Comments Med Refill Encounter Details Date Type Department Care Team (Late st Contact Info) Description 06/18/2022 Refill [facility] [address] [place] [address] Vandana Black, ANP [address] [place] [address] Social History Tobacco Use Types Packs/Day Years [...] was confirmed or suspected to have Coronavirus/COVID-19? Yes 06/21/2022 4:00 PM EDT documented as of this encounter Miscellaneous Notes * Telephone Encounter - Lu Estrada MD - 06/29/2022 1:16 PM EDT It was a short-term use, originally prescribed by neurologist and ED physician. Pt missed appt documented in this encounter Plan of Treatment Upcoming Encounters Date Type Department Care Team (Late st Contact Info) Description 05/22/2024 2:30 PM EST Medication Management [facility] [address] [place] [address] Praful Weiner, PharmD [address] [place] [address] 06/18/2024 9:45 AM EDT Office Visit [facility] [address] [place] [address] Aziza Mckoy, OD [address] [place] [address] 09/11/2024 10:00 AM EDT Office Visit [facility] [address] [place] [address] Raymon, Heidi [address] [place] [address] documented as of this encounter Visit Diagnoses Not on filedocumented in this encounter Care Teams Semi Automatic Sewing Machine Operator Relationship Specialty Start Date End Date Lu Estrada MD [address] [place] [address] PCP - General Family Medicine 03/27/18 documented as of this encounter
--- OUTSIDE RECORDS SUMMARY | 2024-04-30 02:12 | XMS_ITS | Encounter Summary ---
Author Organization [employer] Address [address] [facility] [address] [place] [address] Care Team Providers Care Ore Tester Name Role Phone Lu Estrada MD Primary Care Provider [phone] Encounter Details Date Type Department Care Team (Latest Contact Info) Description 04/29/2024 Travel Social History Tobacco Use Types Packs/Day Years [...] Description 05/22/2024 2:30 PM EST Medication Management [facility] [address] [place] [address] Praful Weiner, PharmD [address] [place] [address] 06/18/2024 9:45 AM EDT Office Visit [facility] [address] [place] [address] Tarka, Aziza, OD [address] [place] [address] 09/11/2024 10:00 AM EDT Office Visit [facility] [address] [place] [address] Heidi Ennis [address] [place] [address] documented as of this encounter Visit Diagnoses Not on filedocumented in this encounter Additional Health Concerns Assessment Noted Time PHQ-9 Depression Total Score: 5 01/22/20 24 3:06 PM EDT documented as of this encounter Care Teams Ore Tester Relationship Specialty Start Date End Date Lu Estrada MD [address] [place] [address] PCP - General Family Medicine 03/27/18 documented as of this encounter
--- OUTSIDE RECORDS SUMMARY | 2024-04-30 02:12 | XMS_ITS | Encounter Summary ---
Author Organization [employer] Address [address] [place] [address] [address] [place] [address] Care Team Providers Care Pattern Chain Builder Name Role Phone Lu Estrada MD Primary Care Provider [phone] Encounter Details Date Type Department Care Team ([facility] Contact Info) Description 03/18/2022 Abstract [facility] [address] [place] [address] Viet Kellogg DDS [address] [place] [address] Social History Tobacco Use Types Packs/Day Years [...] suspected to have Coronavirus/COVID-19? No / Unsure 03/02/2022 8:57 AM EST documented as of this encounter Plan of Treatment Upcoming Encounters Date Type Department Care Team ([facility] Contact Info) Description 05/22/2024 2:30 PM EST Medication Management [facility] [address] [place] [address] Praful Weiner, PharmD [address] [place] [address] 06/18/2024 9:45 AM EDT Office Visit [facility] [address] [place] [address] Aziza Mckoy, OD [address] [place] [address] 09/11/2024 10:00 AM EDT Office Visit [facility] [address] [place] [address] Mc Ennisaris [address] [place] [address] documented as of this encounter Visit Diagnoses Not on filedocumented in this encounter Care Teams Pattern Chain Builder Relationship Specialty Start Date End Date Lu Estrada MD [address] [place] [address] PCP - General Family Medicine 03/27/18 documented as of this encounter
--- OUTSIDE RECORDS SUMMARY | 2024-04-30 02:12 | XMS_ITS | Encounter Summary ---
Author Organization [employer] Address [address] [facility] 7[address] [place] [address] Care Team Providers Care Bridge Game Director Name Role Phone Lu Estrada MD Primary Care Provider [phone] Encounter Details Date Type Department Care Team ([facility] Contact Info) Description 10/17/2022 Abstract [facility] [address] [place] [address] Mc Ennisaris [address] [place] [address] Social History Tobacco Use Types Packs/Day Years [...] suspected to have Coronavirus/COVID-19? No / Unsure 09/22/2022 9:14 AM EDT documented as of this encounter Plan of Treatment Upcoming Encounters Date Type Department Care Team ([facility] Contact Info) Description 05/22/2024 2:30 PM EST Medication Management [facility] [address] [place] [address] Praful Weiner, PharmD [address] [place] [address] 06/18/2024 9:45 AM EDT Office Visit [facility] [address] [place] [address] Aziza Mckoy, OD [address] [place] [address] 09/11/2024 10:00 AM EDT Office Visit [facility] [address] [place] [address] Raymon, Heidi [address] [place] [address] documented as of this encounter Visit Diagnoses Not on filedocumented in this encounter Care Teams Bridge Game Director Relationship Specialty Start Date End Date Lu Estrada MD [address] [place] [address] PCP - General Family Medicine 03/27/18 documented as of this encounter
--- OUTSIDE RECORDS SUMMARY | 2024-04-30 02:12 | XMS_ITS | Encounter Summary ---
Author Organization [employer] Address [address] [facility] [address] [place] [address] Care Team Providers Care Rehab Manager Name Role Phone Lu Estrada MD Primary Care Provider [phone] Encounter Details Date Type Department Care Team ([facility] Contact Info) Description 10/17/2022 Abstract [facility] [address] [place] [address] Mc Ennisaris [address] [place] [address] Social History Tobacco Use Types Packs/Day Years [...] Upcoming Encounters Date Type Department Care Team ([facility] Contact Info) Description 05/22/2024 2:30 PM EST Medication Management [facility] [address] [place] [address] Praful Weiner, PharmD [address] [place] [address] 06/18/2024 9:45 AM EDT Office Visit [facility] [address] [place] [address] Aziza Mckoy, OD [address] [place] [address] 09/11/2024 10:00 AM EDT Office Visit [facility] [address] [place] [address] Raymon, Heidi [address] [place] [address] documented as of this encounter Visit Diagnoses Not on filedocumented in this encounter Care Teams Rehab Manager Relationship Specialty Start Date End Date Lu Estrada MD [address] [place] [address] PCP - General Family Medicine 03/27/18 documented as of this encounter
--- OUTSIDE RECORDS SUMMARY | 2024-04-30 02:12 | XMS_ITS | Clinical Summary ---
Author Organization [facility] Address [address] [place] [address] Care Team Providers [employer] Supervisor Name Role Phone Lu Estrada MD Primary Care Provider Allergies No known active allergies Medications hydrocortisone (Anusol-HC) 2.5 % rectal cream Apply topically every 12 (twelve) hours. 08/25/19 22 Active hydrOXYzine pamoate (Vistaril) 25 MG capsule TAKE 1 CAPSULE BY MOUTH AT BEDTIME FOR SLEEP MAY TAKE 1 CAPSULE BY MOUTH UP TO THREE TIMES DAILY (DURING THE DAY) NEEDED FOR ANXIETY. 30 capsule 01/22/20 24 Active montelukast (Singulair) 10 MG tablet Take 1 tablet (10 mg) by mouth at bedtime. 90 tablet 3 01/22/20 24 Active albuterol 108 (90 Base) MCG/ACT inhalerIndicati ons:Moderate persistent asthma without complication Take 2 puffs every 4 hours as needed for wheezing. Maximum Daily dose 8 puffs per day. 18 g 2 01/22/20 24 Active Fluticasone-Beck meterol (Advair Diskus) 250-50 MCG/ACT aerosol powder Inhale 1 puff 2 times daily. 1 each 11 01/22/20 24 Active loratadine (Claritin) 10 MG tablet TAKE 1 TABLET BY MOUTH EVERY DAY 90 tablet 3 01/22/20 24 Active lidocaine (Lidoderm) 5 % patch Apply 1 patch topically Once per day. Remove & discard patch within 12 hours or as directed by MD. 90 patch 3 01/22/20 24 Active cholecalciferol (D3 Super Strength) 50 MCG (2000 UT) capsule Take 1 capsule (50 mcg) by mouth Once per day. 90 capsule 3 01/22/20 24 Active pantoprazole (ProtoNix) 40 MG EC tabletIndicatio ns:Gastroesopha geal reflux disease, unspecified whether esophagitis present Take 1 tablet (40 mg) by mouth 2 times daily. Do not crush, chew, or split. 180 tablet 3 01/22/20 24 Active butalbital-acet aminophen-caffe ine 50-325-40 MG tablet Take 1 tablet by mouth every 8 hours as needed for severe headache which does not improve with acetaminophe n, ibuprofen, or naproxen. Maximum 3 tablet per month. 10 tablet 01/22/20 24 Active cyclobenzaprine (Flexeril) 10 MG tablet Take 1 tablet (10 mg) by mouth 3 times daily for 5 days. 15 tablet 03/06/20 24 Active gabapentin (Neurontin) 100 MG capsuleIndicati ons:Fibromyalgi a Take 3 capsules (300 mg) by mouth every 8 (eight) hours. 270 capsule 11 03/25/20 24 025 Active ondansetron (Zofran) 4 MG tabletIndicatio ns:Chronic migraine without aura without status migrainosus, not intractable TAKE 1 TABLET BY MOUTH EVERY 8 HOURS NEEDED FOR NAUSEA 30 tablet 2 04/29/19 25 Active lisinopril 30 MG tabletIndicatio ns:Primary hypertension Take 1 tablet (30 mg) by mouth Once per day. 90 tablet 3 04/29/19 25 Active ondansetron (Zofran) 4 MG tabletIndicatio ns:Chronic migraine without aura without status migrainosus, not intractable TAKE 1 TABLET BY MOUTH EVERY 8 HOURS NEEDED FOR NAUSEA 30 tablet 2 01/22/20 24 025 Discontinued(Re order (will not trigger notification to Pharmacy)) lisinopril 20 MG tabletIndicatio ns:Primary hypertension Take 1 tablet (20 mg) by mouth Once per day. 90 tablet 1 03/06/20 24 025 Discontinued(Re order (will not trigger notification to Pharmacy)) Active Problems Problem Noted Date Diagnosed Date Left sided abdominal pain 04/29/2024 Atypical chest pain 07/13/2022 Enlarged tonsils 07/13/2022 Assessment & Plan (01/28/2024 4:45 PM EST): - patient states she was referred to ENT by GI; she will reschedule appt Dental calculus 04/25/2022 History of chlamydia 04/21/2022 Assessment & Plan (04/21/2022 5:48 AM EST): - Dx on 10/20/21 - s/p Tx with doxycycline - Test of cure on 03/31/22 negative Chlam Bacterial vaginosis 04/21/2022 Assessment & Plan (04/29/2022 6:28 PM EST): - recurrent - most recent treatment in March 2022 Assessment & Plan (04/21/2022 5:49 AM EST): - recurrent - most recent treatment in March 2022 GERD (gastroesophageal reflux disease) Assessment & Plan (01/28/2024 4:47 PM EST): - Seen by GI on 06/13/22. enlarged tonsils. Referred to ENT. - 07/07/22 EGD mild inflammation in stomach. neg H. pylori. -previously on famotidine, but patient self-discontinued -continue pantoprazole -avoid NSAIDS Assessment & Plan (05/05/2023 6:41 AM EST): - Seen by GI on 06/13/22. enlarged tonsils. Referred to ENT. - 07/07/22 EGD mild inflammation in stomach. neg H. pylori. -continue famotidine -continue pantoprazole -avoid NSAIDS Assessment & Plan (08/23/2022 1:44 PM EDT): - Seen by GI on 06/13/22. enlarged tonsils. Referred to ENT. - 07/07/22 EGD mild inflammation in stomach. neg H. pylori. -continue famotidine -continue pantoprazole -avoid NSAIDS Assessment & Plan (04/25/2022 4:36 PM EST): -followed by [facility] GI continue famotidine -continue pantoprazole -avoid NSAIDS IBS (irritable bowel syndrome) 04/21/2022 Assessment & Plan (01/28/2024 4:45 PM EST): - followed by [facility] GI last seen in May 2023 - s/p EGD and colonoscopy -GI prescribed dicyclomine, simethicone, and Creon, but she is not taking it; recommended to discuss with GI specialist before discontinuing it -work on stress reduction Assessment & Plan (05/05/2023 6:42 AM EST): - followed by [facility] GI last seen in Nov 2022 - s/p EGD -continue dicyclomine -continue simethicone -GI prescribed Creon, but she is not taking it; recommended to discuss with GI specialist before discontinuing it -work on stress reduction Assessment & Plan (08/23/2022 1:44 PM EDT): - Seen by GI on 06/13/22. enlarged tonsils. Referred to ENT. - 07/07/22 EGD mild inflammation in stomach. neg H. pylori. -continue dicyclomine -continue simethicone -GI prescribed Creon, but she is not taking it; recommended to discuss with GI specialist before discontinuing it -f/u as scheduled -work on stress reduction Assessment & Plan (04/29/2022 6:27 PM EST): - followed by [facility] GI last seen on 03/24/22 -continue dicyclomine -continue simethicone -GI prescribed Creon, but she is not taking it; recommended to discuss with GI specialist before discontinuing it -f/u as scheduled -work on stress reduction Fibromyalgia 03/02/2022 Assessment & Plan (04/29/2024 11:51 AM EST): - encouraged to stay active - recently prescribed amitriptyline which she had tried for migraine and was discontinued due to ineffectiveness for headache; continue for fibromyalgia (usually non-adherence is the reason for discontinuation) - continue judicious use of cyclobenzaprine Assessment & Plan (01/28/2024 4:46 PM EST): - encouraged to stay active - recently prescribed amitriptyline which she had tried for migraine and was discontinued due to ineffectiveness for headache; continue for fibromyalgia (usually non-adherence is the reason for discontinuation) - continue judicious use of cyclobenzaprine Assessment & Plan (05/05/2023 6:47 AM EST): - encouraged to stay active - recently prescribed amitriptyline which she had tried for migraine and was discontinued due to ineffectiveness for headache; continue for fibromyalgia (usually non-adherence is the reason for discontinuation) - continue judicious use of cyclobenzaprine Assessment & Plan (12/30/2022 6:55 AM EDT): Sx are consistent w her Fibromyalgia. -Pt has apt w ortho done by pt for 01/30/2023 for her knee pain -Refusing PT for now -Tylenol and NSAIDS PRN has at home -start amytriptiline 10 mg daily - possible SE discussed w pt. If responsive, dose can be increased at next apt w PCP. -Gave excuse letter to rest for 48 h at home Assessment & Plan (08/28/2022 5:07 PM EDT): - encouraged to stay active Hypertension 03/02/2022 Assessment & Plan (04/29/2024 11:51 AM EST): - Renewed lisinopril, told to keep a bp log, bp target <140/90, keep low sodium diet - BP not at goal today Assessment & Plan (04/14/2024 2:27 PM EST): Renewed lisinopril, told to keep a bp log, bp target <140/90, keep low sodium diet Assessment & Plan (01/28/2024 4:44 PM EST): -Goal BP < 140/90 per JNC-8 and < 130/85 per ACC/AHA guideline (Treatment threshold >= 140/90) -Treatment Hx: Pt reported side effect to amlodipine and perceived that metoprolol was ineffective - 06/21/22 TTE normal, stress normal, Holter normal. -Continue working on lifestyle modifications -Continue improving medication adherence -Continue lisinopril 20 mg daily -Treatment Hx: Previously prescribed amlodipine. Poor health literacy and adherence. Discontinued since she was not taking it -Follow up in 3-6 mo, sooner if any problem arises Assessment & Plan (05/05/2023 6:41 AM EST): -Goal BP < 140/90 per JNC-8 and < 130/85 per ACC/AHA guideline (Treatment threshold >= 140/90) -Treatment Hx: Pt reported side effect to amlodipine and perceived that metoprolol was ineffective - 06/21/22 TTE normal, stress normal, Holter normal. -Continue working on lifestyle modifications -Continue improving medication adherence -Continue lisinopril 10 mg daily -Restart amlodipine 5 mg daily -Follow up in 3-6 mo, sooner if any problem arises Assessment & Plan (08/23/2022 1:48 PM EDT): -Goal BP < 140/90 per JNC-8 and < 130/85 per ACC/AHA guideline (Treatment threshold >= 140/90) -Treatment Hx: Pt reported side effect to amlodipine and perceived that metoprolol was ineffective - 06/21/22 TTE normal, stress normal, Holter normal. -Continue working on lifestyle modifications -Continue improving medication adherence -Continue current medications: Lisinopril 10 mg daily -Follow up in 3-6 mo, sooner if any problem arises Assessment & Plan (04/25/2022 4:33 PM EST): -Goal BP < 140/90 per JNC-8 and < 130/80 per ACC/AHA guideline (Treatment threshold >= 140/90) -Treatment Hx: Pt reported side effect to amlodipine and perceived that metoprolol was ineffective -Continue working on lifestyle modifications -Continue improving medication adherence -Continue current medications: Lisinopril 10 mg daily -Follow up in 3-6 mo, sooner if any problem arises Assessment & Plan (04/21/2022 5:51 AM EST): -Goal BP < 140/90 per JNC-8 and < 130/80 per ACC/AHA guideline (Treatment threshold >= 140/90) -Treatment Hx: Pt reported side effect to amlodipine and perceived that metoprolol was ineffective -Continue working on lifestyle modifications -Continue improving medication adherence -Continue current medications: Lisinopril 10 mg daily -Follow up in 3-6 mo, sooner if any problem arises Seasonal allergies 03/02/2022 Periodontal disease 03/02/2022 Mixed anxiety and depressive disorder 04/25/2017 Assessment & Plan (01/28/2024 4:48 PM EST): - previously seen by [facility] Clinician. - patient is not interested in behavioral health service -Pt was recommended to improve sleepy hygien and exercise during the day instead of taking medications Assessment & Plan (04/25/2022 4:35 PM EST): Was seen by [facility] Clinician. -Will check status of f/u. -Pt was recommended to improve sleepy hygien and exercise during the day instead of taking medications Dislocation of acromioclavicular joint 7 Migraine 05/04/2016 Assessment & Plan (04/28/2024 4:12 PM EST): -seen by [facility] neurologist in Apr 2019 -seen by [facility] neurology in Dec 2022 -04/23/[address] normal -Treatment Hx: --changed amitripytline to impiramine for both IBS and ESPINOSA, but pt self- discontinued due to its side effect --tried sumatriptan which was ineffective -- previously on rizatriptan and Fioricet prn; her current neurologist switched triptan and discontinued Fioricet -- previously tried topiramate 25 mg qhs for prophylaxis --Discussed about not using Fioricet and reducing use of OTC consumption --Patient verbalized understanding. -Current treatment plan -eletriptan for migraine -trial of Botox -if not improvement, trial CGRP antagnoist - advised to contact neurologist for follow up appointment - agreed to prescribe Fioricet for severe headache, that is not improved by other oral medications. Limit 10 tabs per 3 months. Patient agreed with plan. Assessment & Plan (01/28/2024 4:50 PM EST): -seen by [facility] neurologist in Apr 2019 -seen by [facility] neurology in Dec 2022 -04/23/[address] normal -Treatment Hx: --changed amitripytline to impiramine for both IBS and ESPINOSA, but pt self- discontinued due to its side effect --tried sumatriptan which was ineffective -- previously on rizatriptan and Fioricet prn; her current neurologist switched triptan and discontinued Fioricet -- previously tried topiramate 25 mg qhs for prophylaxis --Discussed about not using Fioricet and reducing use of OTC consumption --Patient verbalized understanding. -Current treatment plan -eletriptan for migraine -trial of Botox -if not improvement, trial CGRP antagnoist - advised to contact neurologist for follow up appointment - agreed to prescribe Fioricet for severe headache, that is not improved by other oral medications. Limit 10 tabs per 3 months. Patient agreed with plan. Assessment & Plan (05/05/2023 6:51 AM EST): -seen by [facility] neurologist in Apr 2019 -seen by [facility] neurology in Dec 2022 -04/23/[address] normal -Treatment Hx: --changed amitripytline to impiramine for both IBS and ESPINOSA, but pt self- discontinued due to its side effect --tried sumatriptan which was ineffective -- previously on rizatriptan and Fioricet prn; her current neurologist switched triptan and discontinued Fioricet -- previously tried topiramate 25 mg qhs for prophylaxis --Discussed about not using Fioricet and reducing use of OTC consumption --Patient verbalized understanding. -Current treatment plan -eletriptan for migraine -trial of Botox -if not improvement, trial CGRP antagnoist - advised to contact neurologist for follow up appt Assessment & Plan (08/28/2022 5:09 PM EDT): -seen by neurologist in Apr 2019, pt did not keep f/u appt -most recent ED visit for ESPINOSA in 04/23/22, given oxycodone -04/23/[address] normal -Treatment Hx: --changed amitripytline to impiramine for both IBS and ESPINOSA, but pt self- discontinued due to its side effect --tried sumatriptan which was ineffective -Continue rizatriptan and Fioricet prn; discussed about side effect of Fioricet -Continue topiramate 25 mg qhs for prophylaxis -Discussed about judicious used of Fioricet, which was previously prescribed by Neurologist and ED Provider. Patient verbalized understanding. -Will re-refer her to Neurologist Assessment & Plan (04/29/2022 6:37 PM EST): -seen by neurologist in Apr 2019, pt did not keep f/u appt -most recent ED visit for ESPINOSA in 04/23/22, given oxycodone -04/23/[address] normal -Treatment Hx: --changed amitripytline to impiramine for both IBS and ESPINOSA, but pt self- discontinued due to its side effect --tried sumatriptan which was ineffective -Continue topiramate 25 mg qhs for prophylaxis -Start rizatriptan for severe attack -Keep appt with neurologist Allergic rhinitis 12/12/2012 Assessment & Plan (01/28/2024 4:47 PM EST): - continue loratadine and montelukast Asthma 12/12/2012 Assessment & Plan (04/29/2024 11:50 AM EST): -last exacerbation requiring prednisone in 2018 -continue Advair as maintenance -continue albuterol -continue Singulair Assessment & Plan (01/24/2024 6:55 AM EDT): -last exacerbation requiring prednisone in 2018 -continue Advair as maintenance -continue albuterol -continue Singulair Assessment & Plan (05/05/2023 6:40 AM EST): -last exacerbation requiring prednisone in 2017 -continue Advair as maintenance -continue albuterol -continue Singulair Assessment & Plan (08/23/2022 1:34 PM EDT): -last exacerbation requiring prednisone in 2018 -continue Advair as maintenance -continue albuterol -continue Singulair Assessment & Plan (04/29/2022 6:24 PM EST): -last exacerbation requiring prednisone in 2018 -continue Advair as maintenance -continue albuterol -continue Singulair Knee pain 12/12/2012 Resolved Problems Problem Noted Date Diagnosed Date Resolved Date Bleeding gums 03/02/2022 04/29/2022 Encounters Date Type Department Care Team Description 04/30/2024 Orders Only GENERIC EXTERNAL DATA DEPARTMENT Provider, Generic External Data 04/29/2024 10:15 AM EST Office Visit [address] [address] Lu Estrada MD Primary hypertension (Primary Dx); Moderate persistent asthma without complication; Fibromyalgia; Chronic migraine without aura without status migrainosus, not intractable; Left sided abdominal pain; Chronic pain of left knee 04/29/2024 Travel 04/24/[address] [address] Jordyn Brewster MA chart prep 03/28/[address] [address] Miriam Garcia, RN NTTS 03/28/[address] [address] Lu Estrada MD 03/28/2024 Orders Only [facility] [address] [place] [address] Elliot Antunez MD 03/25/2024 7:00 PM EST Office Visit [facility] [address] [place] [id number] Elliot Antunez MD Hypokalemia (Primary Dx); Sweating profusely; Fibromyalgia 03/25/2024 Travel 03/25/[address] [address] Lu Estrada MD Nurse Triage 03/15/[address] [address] Lu Estrada MD No Show 03/15/2024 Telephone [facility] [address] [place] [address] Lu Estrada MD 03/11/2024 2:30 PM EST Office Visit [facility] [address] [facility] [place] [address] Raymon, Heidi Dental calculus (Primary Dx) 03/11/2024 Telephone [facility] [address] [facility] [place] [address] Raymon, Heidi 03/08/2024 2:30 PM EST Office Visit [facility] [address] [place] [id number] Marc Márquez MD Inflamed skin tag (Primary Dx) 03/08/2024 Travel 03/06/2024 7:00 PM EST Office Visit [facility] [address] [place] [address] Ameya Fuller MD Muscle pain (Primary Dx); Primary hypertension 03/05/2024 Telephone [facility] [address] [place] [phone] Lu Estrada MD Nurse Triage 03/04/2024 Orders Only GENERIC EXTERNAL DATA DEPARTMENT Provider, Generic External Data 02/18/2024 Orders Only GENERIC EXTERNAL DATA DEPARTMENT Provider, Generic External Data 02/14/[address] [address] Lu Estrada MD from Last 3 Months Immunizations Name Administration Dates Next Due DTaP 11/04/2011, 2,05/31/1991,05/09,02/05/1988,1987 Hep A, Adult 12/26/2017 Hep B, Adolescent or Pediatric 11/16/1999,1998 Hep B, adult 12/26/2017 Hib (HbOC) 05/09/1990 IPV 01/26/1988 Influenza injectable quadriv alent IIV4 with preservative 12/26/2017,02/06/2017,04/21/2015 Influenza injectable quadriv alent preservative free 03/08/2023,04/25/2022,06/04/2019,04/05 Influenza, seasonal, injecta ble, preservative free 01/22/2024 MMR 07/01/1991,05/31/1991 OPV 05/31/1991,05/09/1990,1987 Pfizer Covid-19 Vaccine 12+ 01/22/2024,0 04/26/2023,05/25/2021,04/27 Pneumococcal Conjugate PCV 20 08/23/2022 Pneumococcal Polysaccharide PPSV23 10/01/2008 Pneumococcal, Unspecified 10/01/2008 TD (adult), 2 Lf tetanus tox oid, preservative free, adsorbed 12/04/1998 Tdap 07/27/2021,07/05/2010 Varicella 11/03/1998 Social History Tobacco Use Types Packs/Day Years [...] the past 12 months, has t he [employer], gas, oil or water company threatened to [...] not to disclose 2021 10:15 AM EDT Last Filed Vital Signs Vital Sign Reading Time Taken Comments Blood Pressure 157/70 04/29/2024 10:43 AM EST Pulse 66 04/29/2024 10:43 AM EST Temperature 36 ??C (96.8 ??F) 04/29/2024 10:43 AM EST Respiratory Rate 18 04/29/2024 10:43 AM EST Oxygen Saturation 98% 04/29/2024 10:43 AM EST Inhaled Oxygen Concentration - - Weight 93 kg (205 lb) 04/29/2024 10:43 AM EST Height 170.9 cm (5' 7.28 ) 04/29/2024 10:[address] Body Mass Index 31.84 04/29/2024 10:43 AM EST Plan of Treatment Upcoming Encounters Date Type Department Care Team (Late st Contact Info) Description 05/22/2024 2:30 PM EST Medication Management [facility] [address] [place] [address] Praful Weiner, PharmD [address] [place] [address] 06/18/2024 9:45 AM EDT Office Visit [facility] [address] [place] [address] Aziza Mckoy OD [address] [place] [address] 09/11/2024 10:00 AM EDT Office Visit [facility] [address] [place] [address] Heidi Ennis [address] [place] [address] Health Maintenance Due Date Last Done Comments Family Planning (PISQ) 2002 Dental Oral Exam 03/10/2024 09/08/2023, 03/02/2022 Dental X-Ray: Bitewings 09/08/2024 09/08/2023, 03/02 Dental Prophylaxis 09/10/2024 03/11/2024, 0 09/08/2023, 09/22/2022, Additional history exists Alcohol/Substance Use Screening 01/21/2025 01/22/2024 Depression Screening 01/21/2025 01/22/2024, 01/22/20 SDOH Screening 01/21/2025 01/22/2024 Dental X-Ray: Full Mouth 03/03/2025 03/02/2022 Tobacco Screening 04/29/2025 04/29/2024 Pap Smear 12/04/2026 12/05/2023, 10/25/2022 Cervical Cancer Screening 12/04/2028 HPV/Cotest 12/04/2028 12/05/2023, 0709/2021, 10/20/2021 Lipid Panel 01/21/2029 01/22/2024, 03/29, 09/22/2021 DTaP/Tdap/Td Vaccines (9 - Td or Tdap) 07/28/2031 07/27/2021, 08/14/2013, 11/04/2011, Additional history exists Zoster Vaccines (1 of 2) 2037 RSV Patients and Patients Aged 60 years or older (1 - 1-dose 75+ series) 2062 HIB Vaccines Completed 05/09/1990 IPV Vaccines Completed 05/31/1991, 04/27, 01/26/1988, Additional history exists Hepatitis A Vaccines Aged Out 12/26/2017 No long er eligible based on patient's age to complete this topic Hepatitis B Vaccines Completed 12/26/2017, 11/16/1999, 12/04/1998 HIV Screening Completed 03/16/2020 Hepatitis C Screening Completed 03/16/2020 Pneumococcal Vaccine: Pediatrics (0 to 5 Years) and At-Risk Patients (6 to 49) Years) Completed 08/23/2022, 10/01/2008, 10/01/2008 COVID-19 Vaccine Completed 01/22/2024, , 05/25/2021, Additional history exists Influenza Vaccine Completed 01/22/2024, , 03/08/2023, Additional history exists HPV Vaccines Aged Out No longer eligi ble based on patient's age to complete this topic Meningococcal Vaccine Aged Out No jabier zulma eligible based on patient's age to complete this topic RSV under 20 months Aged Out No longe r eligible based on patient's age to complete this topic Rotavirus Vaccines Aged Out No longer eligible based on patient's age to complete this topic Procedures Procedure Name Priority Date/Time Associated Diagnosis Comments HCG, TOTAL, QN Routine 04/30/2024 1:09 AM EST LIPASE Routine 04/30/2024 1:09 AM EST COMPREHENSIVE METABOLIC PANEL Routine 04/30/2024 1:09 AM EST URINALYSIS, COMPLETE, WITH REFLEX TO CULTURE Routine 04/30/2024 1:09 AM EST CBC WITH AUTO DIFFERENTIAL Routine 04/30/2024 1:09 AM EST POCT URINALYSIS DIPSTICK Routine 04/29/2024 11:43 AM EST Left sided abdominal pain VITAMIN B12/FOLATE, SERUM PANEL Routine 03/26/2024 11:09 AM EST Hypokalemia Sweating profusely MAGNESIUM Routine 03/26/2024 11:09 AM EST Hypokalemia Sweating profusely TSH W/REFLEX TO FT4 Routine 03/26/2024 1 1:09 AM EST Hypokalemia Sweating profusely BASIC METABOLIC PANEL, FASTING Routine 03/26/2024 11:09 AM EST Hypokalemia Sweating profusely CBC WITH AUTO DIFFERENTIAL Routine 03/26/2024 11:09 AM EST Hypokalemia Sweating profusely POCT RAPID COVID ANTIGEN Routine 03/25/2024 7:20 PM EST Hypokalemia Sweating profusely BASIC METABOLIC PANEL Routine 03/11/2024 3:21 PM EST Hypokalemia ADJUNCTIVE GENERAL SERVICES - PROFESSIONAL VISITS - CASE PRESENTATION, SUBSEQUENT TO DETAILED AND EXTENSIVE TREATMENT PLANNING Routine 03/11/2024 2:30 PM EST Dental calculus ORAL HYGIENE INSTRUCTIONS Routine 03/11/2024 2:30 PM EST Dental calculus PROPHYLAXIS - ADULT Routine 03/11/2024 2 :30 PM EST Dental calculus CT ABDOMEN PELVIS W CONTRAST Routine 03/04/2024 10:[address] HEAD WO CONTRAST Routine 03/04/2024 7 :06 PM EST HIGH SENSITIVITY TROPONIN I Routine 03/04/2024 6:19 PM EST COMPREHENSIVE METABOLIC PANEL Routine 03/04/2024 6:19 PM EST CBC WITH AUTO DIFFERENTIAL Routine 03/04/2024 6:19 PM EST APTT Routine 03/04/2024 6:19 PM EST PROTHROMBIN TIME-INR Routine 03/04/2024 6:19 PM EST SARS COV2/INFLUENZA A/B AND RSV RNA QL NAAT Routine 03/04/2024 6:19 PM EST STREP A NUCLEIC ACID Routine 03/04/2024 6:19 PM EST URINALYSIS, COMPLETE, WITH REFLEX TO CULTURE Routine 02/18/2024 11:19 PM EST HCG, QL, URINE Routine 02/18/2024 11:19 PM EST COMPREHENSIVE METABOLIC PANEL Routine 02/18/2024 11:14 PM EST CBC WITH AUTO DIFFERENTIAL Routine 02/18/2024 11:14 PM EST SARS COV2/INFLUENZA A/B AND RSV RNA QL NAAT Routine 02/18/2024 11:14 PM EST CULTURE, URINE, ROUTINE Routine 02/18/2024 12:00 AM EST LIPID PANEL WITH REFLEX TO DIRECT LDL Routine 01/22/2024 3:20 PM EDT Primary hypertension THINPREP IMAGING PAP AND HPV MRNA E6/E7 WITH REFLEX TO HPV 16,18/45 Routine 12/05/2023 12:00 AM EDT BITEWINGS - 4 RADIOGRAPHIC IMAGES Routine 09/08/2023 2:00 PM EDT Dental calculus PERIODIC ORAL EVALUATION - ESTABLISHED PATIENT Routine 09/08/2023 2:00 PM EDT DIAGNOSTIC - DIAGNOSTIC IMAGING - INTRAORAL - COMPREHENSIVE SERIES OF RADIOGRAPHIC IMAGES Routine 03/02/2022 9:00 AM EST ZZZ HISTORICAL HEPATITIS C AB W/REFL TO HCV RNA, QN, PCR Routine 03/16/2020 4:32 PM EST HIV 1/2 ANTIGEN/ANTIBODY, FOURTH GENERATION W/RFL Routine 03/16/2020 4:32 PM EST from Last 3 Months or Most Recently Relevant to Health Maintenance Results * Urinalysis, Complete, with Reflex to Culture (04/30/2024 1:09 AM EST) Only the most recent of2 resultswithin the time period is included. Color Urine Yellow [facility] Appearance Urine Clear [facility] PH 5.5 5.0 - 9.0 [facility] Glucose Urine UA Negative Negative mg/dL [facility] Urine Blood Negative Negative [facility] Specific [place] - Urine 1.025 1.005 - 1.025 [facility] Urine Protein Negative Neg-Trace mg/dL [facility] Urine Ketones Negative Negative mg/dL [facility] Nitrite Urine Negative Negative [facility] Leukocyte Esterase Urine Negative Negative [facility] RBC Urine 0-2 0 - 2 /HPF [facility] Urine WBC 0-5 0 - 5 /HPF [facility] Urine Squamous Epithelial Cell 3-5 0 - 2 /HPF [facility] Urine Bacteria Trace None Seen [facility] Hyaline Casts, Urine 0-2 0 - 2 /LPF [facility] 04/30/2024 1:09 AM EST 04/30/2024 1:13 AM EST Narrative [facility] - 04/30/2024 1:21 AM EST [id number], Clean Catch us Generic External Data Provider LAB URINE ORDERAB LES Final Result [facility] [address] [place] [address] [phone] * (ABNORMAL) CBC auto differential (04/30/2024 1:09 AM EST) Only the most recent of4 resultswithin the time period is included. White Blood Count 7.6 4.8 - 10.8 X10*3/uL [facility] Red Blood Count 4.02(L) 4.20 - 5.50 X10*6/uL [facility] Hemoglobin 11.6(L) 12.0 - 16.0 g/dl [facility] Hematocrit 35.4(L) 37.0 - 47.0 % [facility] Mean Corpuscular Volume 88.1 80.0 - 98.0 fL [facility] Mean Corpuscular Hemoglobin 28.9 27.0 - 33.0 pg [facility] Mean Corpuscular HGB Conc 32.8 31.0 - 35.0 g/dl [facility] Red Cell Distribution Width 14.2 11.0 - 16.0 % [facility] Platelet Count 255 160 - 400 X10*3/uL [facility] Mean Platelet Volume 9.7 9.4 - 12.3 fL [facility] Neutrophils Percent Auto 39.1(L) 45 - 73 % [facility] Imm Gran Pct Auto 0.3 0.0 - 0.4 % [facility] Lymphocytes Percent Auto 53.0(H) 20 - 40 % [facility] Monocytes Percent Auto 5.9 2 - 11 % [facility] Eosinophils Percent Auto 1.3 0 - 4 % [facility] Basophils Percent Auto 0.4 0 - 2 % [facility] NRBC Pct Auto 0.0 0.0 - 0.2 /100WBC [facility] Neutrophils Absolute Auto 3.0 2.0 - 8.3 x10*3/uL [facility] Imm Gran Abs Auto 0.02 0.00 - 0.03 X10*3/uL [facility] Lymphocytes Absolute Auto 4.0 1.2 - 4.9 X10*3/uL [facility] Monocytes Absolute Auto 0.5 0.1 - 1.2 X10*3/uL [facility] Eosinophils Absolute Auto 0.1 0.0 - 0.4 X10*3/uL [facility] Basophils Absolute Auto 0.0 0.0 - 0.2 X10*3/uL [facility] NRBC Abs Auto 0.000 0.0 - 0.012 X10*3/uL [facility] 04/30/2024 1:09 AM EST 04/30/2024 1:13 AM EST us Generic External Data Provider LAB BLOOD ORDERAB LES Final Result [facility] [address] [place] [phone] * POCT urinalysis dipstick manually resulted (04/29/2024 11:43 AM EST) Color, UA Light Yellow Clarity, UA Clear Glucose, UA Negative Bilirubin, UA Negative Ketones, UA Negative Spec Grav, UA 1.030 Blood, UA Negative Negative, None Detected pH, UA 6.5 Protein, UA Negative Urobilinogen, UA 0.2 Leukocytes, UA Negative Negative, Rare, Trace Nitrite, UA Negative Negative, None Detected Appearance, UA clear QC Media Lot # [id number] Lot# Expiration Date Urine 04/29/2024 11:4 3 AM EST Lu Estrada MD POINT OF CARE TEST ENTER/EDIT OR DERABLES Final Result * (ABNORMAL) Basic Metabolic Panel, Fasting (03/26/2024 11:09 AM EST) Sodium 140 135 - 145 mmol/L [facility] Potassium 3.9 3.3 - 5.1 mmol/L [facility] Chloride 111(H) 96 - 108 mmol/L [facility] Carbon Dioxide 22 22 - 29 mmol/L [facility] Anion Gap 11(L) 12 - 20 [facility] Urea Nitrogen (BUN) 16 9 - 16 mg/dL [facility] Creatinine, Serum 0.82 0.5 - 1.4 mg/dL [facility] Estimated Glomerular Filt Rate >60 [facility] Comment:Chronic Kidney Disea se: Estimated GFR < 60 mL/min/1.82n4Rojcxv Kidney Disease: Estimated GFR < 15 mL/min/1.73m2 Glucose Fasting 90 60 - 99 mg/dL [facility] Calcium 9.1 8.4 - 10.2 mg/dL [facility] Blood Venous blood specimen / Unknown 03/26/2024 11:09 AM EST 03/26/2024 1:25 PM EST us Elliot Antunez MD LAB BLOOD ORDERABLES Final Result [facility] [address] [place] [phone] * Vitamin B12/Folate, Serum Panel (03/26/2024 11:09 AM EST) Vitamin B12 326 200 - 900 pg/mL [facility] Comment:NORMAL 200-900 PG/ML INDETERMINATE 160-199 PG/ML DEFICIENT < 160 PG/ML Folate 7.1 > or = 4.0 ng/mL [facility] Comment:Reference Values:> o r = 4.0 ng/mL< 4.0 ng/mL suggests folate deficiency Methotrexate, aminopterin and folinic acid(leucovorin) are chemotherapeutic agents whose molecularstructures are similar to folate; therefore, the Architectfolate assay cannot be used for patients using these drugs. Blood Venous blood specimen / Unknown 03/26/2024 11:09 AM EST 03/26/2024 1:25 PM EST us Elliot Antunez MD LAB BLOOD ORDERABLES Final Result Performing Organization Address [place] Co de Phone Number [facility] [address] [place] [phone] * TSH W/Reflex to FT4 (03/26/2024 11:09 AM EST) TSH reflex Free T4 1.53 0.32 - 4.0 uIU/mL [facility] Blood Venous blood specimen / Unknown 03/26/2024 11:09 AM EST 03/26/2024 1:25 PM EST us Elliot Antunez MD LAB BLOOD ORDERABLES Final Result Performing Organization Address [facility] Phone Number [facility] [address] [place] [phone] * Magnesium (03/26/2024 11:09 AM EST) Magnesium 2.4 1.6 - 2.6 mg/dL [facility] Blood Venous blood specimen / Unknown 03/26/2024 11:09 AM EST 03/26/2024 1:25 PM EST us Elliot Antunez MD LAB BLOOD ORDERABLES Final Result Performing Organization Address [place] Co de Phone Number [facility] [address] [place] [phone] * POCT Rapid Covid-19 BinaxNOW (03/25/2024 7:20 PM EST) Rapid COVID Ag Negative Swab 03/25/2024 7:20 PM EST us Elliot Antunez MD POINT OF CARE TEST ENTER/ED IT ORDERABLES Final Result * Basic Metabolic Panel (03/11/2024 3:21 PM EST) Sodium 138 135 - 145 mmol/L [facility] Potassium 3.9 3.3 - 5.1 mmol/L [facility] Chloride 107 96 - 108 mmol/L [facility] Carbon Dioxide 22 22 - 29 mmol/L [facility] Anion Gap 13 12 - 20 [facility] Urea Nitrogen (BUN) 14 9 - 16 mg/dL [facility] Creatinine, Serum 0.89 0.5 - 1.4 mg/dL [facility] Estimated Glomerular Filt Rate >60 [facility] Comment:Chronic Kidney Disea se: Estimated GFR < 60 mL/min/1.54c8Pakwlh Kidney Disease: Estimated GFR < 15 mL/min/1.73m2 Glucose 86 60 - 115 mg/dL [facility] Calcium 9.4 8.4 - 10.2 mg/dL [facility] Blood Venous blood specimen / Unknown 03/11/2024 3:21 PM EST 03/11/2024 4:23 PM EST us Lu Estrada MD LAB BLOOD ORDERABLES Final Resul t [facility] [address], [place] [phone] * CT Abdomen Pelvis w/ Contrast (03/04/2024 10:31 PM EST) Anatomical Region Laterality Modality Body, Pelvis, Abdomen Computed T omography 03/04/2024 10:3 1 PM EST Narrative 03/04/2024 11:38 PM EST ? [facility] ?[address] ?[place] [address] ? CT Scan Report ? Signed ? Patient: Mckeon Ramsey,Shruti ?MR#: MM ?? [id number] ? : 1985 ?Acct:[id number] ? Age/Sex: 38 / F ?ADM Date: 03/04/24 ? Loc: HO.ED ? Attending Dr: ? Ordering Physician: Dina Nayak DO ?? Date of Service: 03/04/24 ?? Procedure(s): CT abdomen pelvis w IV con ?? Accession Number(s): [id number] ? cc: Dina Nayak DO; Lu Estrada MD ? EXAMINATION: ?? CT ABDOMEN AND PELVIS WITH CONTRAST ? CLINICAL INFORMATION: ?? Chills and lower abd pain s/p ovarian cyst removal ? COMPARISON: ?? CT abdomen/pelvis dated 09/13/2023 ? TECHNIQUE: ?? Multidetector volumetric images were obtained from the superior aspect ?? of the liver through the pubic symphysis following administration 85 mL ?? of Omnipaque 350 intravenous contrast. Sagittal and coronal reformatted ?? images were obtained on the technologist's workstation. ? Oral contrast: No ? This CT examination was performed using dose optimization techniques as ?? appropriate, variously including the following: ?? *Automated exposure control ?? *Adjustment of mA and/or kV according to patient size (this includes ?? techniques or standardized protocols for targeted exams where dose is ?? matched to indication/reason for exam; i.e. extremities or head) ?? *Use of iterative reconstruction technique ? DLP: ?? 715 mGy-cm ? FINDINGS: ?? LUNG BASES: The visualized lung bases are unremarkable. ? LIVER, GALLBLADDER, AND BILIARY TREE: The liver is normal in size, ?? shape, and attenuation. No focal hepatic lesion or biliary ductal ?? dilatation is present. The gallbladder is decompressed with no evidence ?? of radiopaque gallstones, gallbladder wall thickening, or obvious ?? pericholecystic inflammatory changes. ? PANCREAS: Unremarkable. ? SPLEEN: Unremarkable. ? ADRENAL GLANDS: Unremarkable. ? KIDNEYS AND URETERS: The kidneys are normal in size, shape, and ?? attenuation. No hydronephrosis, hydroureter, or calculi seen. No ?? perinephric stranding. ? BLADDER: Unremarkable. ? GASTROINTESTINAL TRACT: The small and large bowel are unremarkable. The ?? appendix is unremarkable. ? ABDOMINAL WALL: No significant hernia is appreciated. ? LYMPH NODES: Normal. ? VASCULAR: Unremarkable. ? PELVIC VISCERA: Left ovarian cyst measures 1.9 x 1.3 x 1.4 cm and is ?? likely physiologic and does not require further imaging follow-up. The ?? uterus and right adnexa are unremarkable. ? OSSEOUS STRUCTURES: Unremarkable. ? CT/CT abdomen pelvis w IV con ?? IMPRESSION: ?? 1. ??No acute abnormality within the abdomen or pelvis. ?? 2. ??Left ovarian cyst measures 1.9 cm, is likely physiologic and does ?? not require further imaging follow-up. ? Fleischner guidelines were followed. ? Electronically signed by: ??Willow Anton MD ??03/04/2024 11:35 PM EST ?? RP ? Dictated By: ?Unique Anton ? Signed By: ?<Electronically signed by Unique ??Sloane in OV> ? 03/04/24 2335 ? DD/ 30 ? TD/TT: 03/04/247 ? Ep Tech: ? Procedure Note Tanmay Ocasio - 03/04/[address] [place] [address] [address] Scan Report Signed Patient: Ajay Winters#: [id number] : 1985Acct:[id number] Age/Sex: 38 / FADM Date: 03/04/24 Loc: HO.ED Attending Dr: Ordering Physician: Dina Nayak DO Date of Service: 03/04/24 Procedure(s): CT abdomen pelvis w IV con Accession Number(s): [id number] cc: Dina Nayak DO; Lu Estrada MD EXAMINATION: CT ABDOMEN AND PELVIS WITH CONTRAST CLINICAL INFORMATION: Chills and lower abd pain s/p ovarian cyst removal COMPARISON: CT abdomen/pelvis dated 09/13/2023 TECHNIQUE: Multidetector volumetric images were obtained from the superior aspect of the liver through the pubic symphysis following administration 85 mL of Omnipaque 350 intravenous contrast. Sagittal and coronal reformatted images were obtained on the technologist's workstation. Oral contrast: No This CT examination was performed using dose optimization techniques as appropriate, variously including the following: *Automated exposure control *Adjustment of mA and/or kV according to patient size (this includes techniques or standardized protocols for targeted exams where dose is matched to indication/reason for exam; i.e. extremities or head) *Use of iterative reconstruction technique DLP: 715 mGy-cm FINDINGS: LUNG BASES: The visualized lung bases are unremarkable. LIVER, GALLBLADDER, AND BILIARY TREE: The liver is normal in size, shape, and attenuation. No focal hepatic lesion or biliary ductal dilatation is present. The gallbladder is decompressed with no evidence of radiopaque gallstones, gallbladder wall thickening, or obvious pericholecystic inflammatory changes. PANCREAS: Unremarkable. SPLEEN: Unremarkable. ADRENAL GLANDS: Unremarkable. KIDNEYS AND URETERS: The kidneys are normal in size, shape, and attenuation. No hydronephrosis, hydroureter, or calculi seen. No perinephric stranding. BLADDER: Unremarkable. GASTROINTESTINAL TRACT: The small and large bowel are unremarkable. The appendix is unremarkable. ABDOMINAL WALL: No significant hernia is appreciated. LYMPH NODES: Normal. VASCULAR: Unremarkable. PELVIC VISCERA: Left ovarian cyst measures 1.9 x 1.3 x 1.4 cm and is likely physiologic and does not require further imaging follow-up. The uterus and right adnexa are unremarkable. OSSEOUS STRUCTURES: Unremarkable. CT/CT abdomen pelvis w IV con IMPRESSION: 1. No acute abnormality within the abdomen or pelvis. 2. Left ovarian cyst measures 1.9 cm, is likely physiologic and does not require further imaging follow-up. Fleischner guidelines were followed. Electronically signed by: Willow Anton MD 03/04/2024 11:35 PM [facility] Dictated By: Unique Anton Signed By: <Electronically signed by Unique Anton in OV> 03/04/24 2335 DD/ 30 TD/TT: 03/04/247 Ep Tech: us [facility] External Provider IMG CT PROCEDURES Final Result * CT Head w/o Contrast (03/04/2024 7:06 PM EST) Anatomical Region Laterality Modality Head, Neck Computed Tomogra phy 03/04/2024 7:06 PM EST Narrative 03/04/2024 8:11 PM EST ? [facility] ?[address] ?[place], [place] [address] ? CT Scan Report ? Signed ? Patient: Shruti Winters ?MR#: MM ?? [id number] ? : 1985 ?Acct:[id number] ? Age/Sex: 38 / F ?ADM Date: 03/04/24 ? Loc: HO.ED ? Attending Dr: ? Ordering Physician: Rahul Weber ?? Date of Service: 03/04/24 ?? Procedure(s): CT head/brain wo IV con ?? Accession Number(s): [id number] ? cc: Rahul Weber; Lu Estrada MD ? EXAMINATION: ?? CT HEAD WITHOUT CONTRAST ? CLINICAL INFORMATION: ?? Headache ? COMPARISON: ?? CT head 04/23/2022 ? TECHNIQUE: ?? Contiguous axial imaging was performed from the skull base to vertex ?? without intravenous administration of contrast. ? This CT examination was performed using dose optimization techniques as ?? appropriate, variously including the following: ?? *Automated exposure control ?? *Adjustment of mA and/or kV according to patient size (this includes ?? techniques or standardized protocols for targeted exams where dose is ?? matched to indication/reason for exam; i.e. extremities or head) ?? *Use of iterative reconstruction technique ? DLP: ?? 580 mGy-cm ? FINDINGS: ? There is no evidence of acute intracranial hemorrhage or edematous ?? large vessel territorial infarction. No abnormal mass effect or midline ?? shift is seen. Sultana to white matter differentiation is well preserved. ?? No abnormal extra-axial fluid collections are identified. ? The ventricles are normal in size. No abnormal attenuation in the brain ?? parenchyma. No acute calvarial fracture.. Paranasal sinuses and mastoid ?? air cells are well-aerated. ? CT/CT head/brain wo IV con ?? IMPRESSION: ?? No CT evidence of acute intracranial hemorrhage or edematous ?? territorial infarction.. ? Electronically signed by: ??Afshin Parra MD ??03/04/2024 08:08 PM EST ? Dictated By: ?Afshin Parra MD ? Signed By: ?<Electronically signed by Afshin Parra MD in OV> ?03/04/242007 ? DD/ 05 ? TD/TT: 03/04/241932 ? Ep Tech: HB ? Procedure Note [place], Image - 03/04/[address] [place] [address] [address] Scan Report Signed Patient: Ajay Winters#: MM [id number] : 1985Acct:[id number] Age/Sex: 38 / FADM Date: 03/04/24 Loc: HO.ED Attending Dr: Ordering Physician: Rahul Weber Date of Service: 03/04/24 Procedure(s): CT head/brain wo IV con Accession Number(s): [id number] cc: Rahul Weber; Lu Estrada MD EXAMINATION: CT HEAD WITHOUT CONTRAST CLINICAL INFORMATION: Headache COMPARISON: CT head 04/23/2022 TECHNIQUE: Contiguous axial imaging was performed from the skull base to vertex without intravenous administration of contrast. This CT examination was performed using dose optimization techniques as appropriate, variously including the following: *Automated exposure control *Adjustment of mA and/or kV according to patient size (this includes techniques or standardized protocols for targeted exams where dose is matched to indication/reason for exam; i.e. extremities or head) *Use of iterative reconstruction technique DLP: 580 mGy-cm FINDINGS: There is no evidence of acute intracranial hemorrhage or edematous large vessel territorial infarction. No abnormal mass effect or midline shift is seen. Sultana to white matter differentiation is well preserved. No abnormal extra-axial fluid collections are identified. The ventricles are normal in size. No abnormal attenuation in the brain parenchyma. No acute calvarial fracture.. Paranasal sinuses and mastoid air cells are well-aerated. CT/CT head/brain wo IV con IMPRESSION: No CT evidence of acute intracranial hemorrhage or edematous territorial infarction.. Electronically signed by: Afshin Parra MD 03/04/2024 08:08 PM EST Dictated By: Afshin Parra MD Signed By: <Electronically signed by Afshin Parra MD in OV> 03/04/242007 DD/ 05 TD/TT: 03/04/241932 Ep Tech: [facility] External Provider IMG CT PROCEDURES Final Result * Strep A Nucleic Acid (03/04/2024 6:19 PM EST) Pathologist [facility] IDNOW SERIAL# [id number] [facility] Strep A Nucleic Acid Negative Negative [facility] Comment:All test results mus t be correlated with clinical findings.This test has not been evaluated for monitoring treatment ofinfection.Additional follow-up testing using the culture method isrequired if the result is negative and clinical symptomspersist, or in the event of an acute rheumatic feveroutbreak. 03/04/2024 6:19 PM EST 03/04/2024 6:22 PM EST Generic External Data Provider LAB MICROBIOLOGY - GENERAL ORDERABLES Final Result [facility] [address] [place] [phone] * High Sensitivity Troponin I (03/04/2024 6:19 PM EST) Pathologist [facility] TROPONIN I HIGH SENSITIVITY <2.7 <3.5 - 17.0 ng/L [facility] Comment:The Chavez high sens itivity Troponin-I results should beused in conjunction with other diagnostic information suchas ECG, clinical observations and information, and patientsymptoms to aid in the diagnosis of [place]. 03/04/2024 6:19 PM EST 03/04/2024 6:22 PM EST Generic External Data Provider LAB BLOOD ORDERAB LES Final Result Performing Organization Address [place]/[facility] Co de Phone Number [facility] [address] [place] [phone] * SARS-CoV-2 RNA, Influenza A/B, and RSV RNA, Ql NAAT (03/04/2024 6:19 PM EST) Only the most recent of2 resultswithin the time period is included. Influenza A PCR NEGATIVE Negative [facility] Influenza B PCR NEGATIVE Negative [facility] Resp Syncy Virus RNA Qual PCR NEGATIVE Negative [facility] SARS COV2 PCR NEGATIVE Negative [facility] Comment:All test results mus t be correlated with clinical findings.Negative results do not preclude SARS-CoV2, influenza Avirus, influenza B virus and/or RSV infectionand should not be used as the sole basis for treatment orother patient management decisions. Negative results must becombined with clinical observations, patient history, andepidemiological information.This test has not been evaluated for monitoring treatment ofinfection.This test has been authorized by the FDA under an EmergencyUse Authorization (EUA) for use by authorized laboratories.Testing performed on the [employer] GeneXpert utilizingreal-time RT-PCR.All SARS CoV2 and positive influenza A/B results arereported to [facility]. 03/04/2024 6:19 PM EST 03/04/2024 6:22 PM EST us Generic External Data Provider LAB MICROBIOLOGY - GENERAL ORDERABLES Final Result Performing Organization Address [place]/[facility]/ZIP Co de Phone Number [facility] [address] [place] [phone] * Partial Thromboplastin Time, Activated (APTT) (03/04/2024 6:19 PM EST) Partial Thromboplastin Time 30.1 26.0 - 36.8 SEC [facility] Comment:For information rega rding the monitoring of direct thrombininhibitors, please refer to Pharmacy. 03/04/2024 6:19 PM EST 03/04/2024 6:22 PM EST Generic External Data Provider LAB BLOOD ORDERAB LES Final Result Performing Organization Address [facility] de Phone Number [facility] [address] [place] [phone] * Prothrombin Time-INR (03/04/2024 6:19 PM EST) Prothrombin Time 12.1 10.9 - 12.4 SEC [facility] INTERNATIONAL NORM RATIO 1.0 0.9 - 1.1 [facility] Comment:INTERNATIONAL NORMAL IZED RATIO (INR) REFERENCE RANGES Reference RangeFor patients not on anticoagulant therapy: 0.9 - 1.1INR ranges for oral anticoagulanttherapy:For prevention and treatment of venous thrombosis and pulmonary embolism: 2.0 - 3.0For acute myocardial infarction with aspirin therapy: 2.0 - 3.0For acute myocardial infarction without aspirin therapy: 3.0 - 4.0For patients with mechanical prosthetic heart valves: 2.5 - 3.5 03/04/2024 6:19 PM EST 03/04/2024 6:22 PM EST [employer] External Data Provider LAB BLOOD ORDERAB LES Final Result Performing Organization Address [facility] de Phone Number [facility] [address] [place] [phone] * (ABNORMAL) Comprehensive Metabolic Panel (03/04/2024 6:19 PM EST) Only the most recent of2 resultswithin the time period is included. Sodium 140 135 - 145 mmol/L [facility] Potassium 3.1(L) 3.3 - 5.1 mmol/L [facility] Chloride 108 96 - 108 mmol/L [facility] Carbon Dioxide 25 22 - 29 mmol/L [facility] Anion Gap 10(L) 12 - 20 [facility] Urea Nitrogen (BUN) 10 9 - 16 mg/dL [facility] Creatinine, Serum 1.16 0.5 - 1.4 mg/dL [facility] Creatinine Clr Calc Pharmacy 75.6 [facility] Comment:Provided height and weight: 167.64 cm,89.6 kg.eGFR (calculated from the MDRD study equation) and eCrCl(calculated from the Cockcroft-Gault equation) are based ondifferent parameters and may not yield comparable results.If eCrCl result is absurd, please check patient'sheight/weight. Estimated Glomerular Filt Rate 53 [facility] Comment:Chronic Kidney Disea se: Estimated GFR < 60 mL/min/1.15v7Naaeht Kidney Disease: Estimated GFR < 15 mL/min/1.73m2 Glucose 97 60 - 115 mg/dL [facility] Calcium 9.3 8.4 - 10.2 mg/dL [facility] Bilirubin, Total 0.3 0.0 - 1.0 mg/dL [facility] Aspartate Amino Transferase 55(H) 5 - 31 U/L [facility] Alanine Aminotransferase 12 0 - 31 U/L [facility] Total Protein 7.1 6.5 - 8.0 g/dL [facility] Albumin Level 4.2 3.5 - 5.0 g/dL [facility] Alkaline Phosphatase 55 39 - 117 U/L [facility] 03/04/2024 6:19 PM EST 03/04/2024 6:22 PM EST us Generic External Data Provider LAB BLOOD ORDERAB LES Final Result [facility] [address] [place] [address] [phone] * HCG, Qualitative, Urine (02/18/2024 11:19 PM EST) Urine NEGATIVE NEGATIVE [facility] Comment:This test was develo ped to detect early . Falsenegative results may occur after the 5th - 7th week ofpregnancy when using this test method. If clinicallyindicated, consider a serum hCG. 02/18/2024 11:1 9 PM EST 02/18/2024 11:23 PM EST Generic External Data Provider LAB URINE ORDERAB LES Final Result Performing Organization Address [place]/[facility]/ZIP Co de Phone Number [facility] [address] [place] [phone] * Culture, Urine, Routine (02/18/2024 12:00 AM EST) Urine Urine specimen from urinary conduit / Unknown 02/18/2024 02/18/2024 Comment:Urine Cath Narrative [facility] - 02/20/2024 7:28 AM EST Urine Culture No growth. Specimen Source: Urine Catheterized Generic External Data Provider LAB MICROBIOLOGY - GENERAL ORDERABLES Final Result Performing Organization Address [place] Co de Phone Number [facility] [address] [place] [phone] * (ABNORMAL) Lipid Panel with Reflex to Direct LDL (01/22/2024 3:20 PM EDT) Triglycerides 88 <150 mg/dL [facility] Comment:Desirable Triglyceri de: less than 150 mg/dLBorderline High Triglyceride 150-199 mg/dLHigh Triglyceride: 200-499 mg/dLVery High Triglyceride: greater than or equal to 5OO mg/dL Cholesterol 183 <200 mg/dL [facility] Comment:Desirable Cholestero l: less than 200 mg/dLBorderline High Cholesterol: 200-239 mg/dLHigh Cholesterol: greater than 239 mg/dL LDL Cholesterol Calculated 126(H) <100 mg/dL [facility] Comment:Desirable LDL: less than 100 mg/dLNear Optimal/Above Optimal LDL: 110- 129 mg/dLBorderline High LDL: 130-159 mg/dLHigh LDL: 160-189 mg/dLVery High LDL: greater than or equal to 190 mg/dL HDL Cholesterol 40(L) >40 mg/dL [facility] Comment:Desirable HDL: great er than 40 mg/dL Note: This HDL assay may give artificially low results in patients with liver disease. Blood 01/22/2024 3:20 PM EDT 01/22/2024 4:05 PM EDT us Lu Estrada MD LAB BLOOD ORDERABLES Final Resul t [facility] [address] [place] [address] [phone] * ThinPrep Imaging Pap and HPV mRNA E6/E7 with Reflex to HPV 16,18/45 (12/05/2023 12:00 AM EDT) HPV 16 RNA [facility] HPV 18/45 RNA [facility] HPV nRNA E6/E7 Not Detected Not Detected [facility] Comment:Methodology: Transcr iption-Mediated AmplificationThis assay detects E6/E7 viral messenger RNA (mRNA) from 14high-risk HPV types (16,18,31,33,35,39,45,51,52,56,58,59,66,68).Cervical sources are required for HPV testing.If a vaginal source from a patient who has had atotal hysterectomy with removal of cervix wassubmitted, please contact the testing laboratoryfor alternative testing options.For additional information, please refer tohttp://education.Spring/faq/GUK698r3(This link if provided for information/educational purposes only.)THIS TEST WAS PERFORMED AT:[employer] [place] [phone] MILLS MD SOURCE: SEE NOTE [facility] Comment:None given Report Status: [facility] Clinical Information: SEE NOTE [facility] Comment:None given LMP: SEE NOTE [facility] Comment:NONE GIVEN Prev. PAP: SEE NOTE [facility] Comment:NONE GIVEN Prev. BX: SEE NOTE [facility] Comment:NONE GIVEN Statement Of Adequacy: SEE NOTE [facility] Comment:Satisfactory for tahmina luation.Endocervical/transformation zone componentpresent. General Categorization: [facility] Interpretation/Result: SEE NOTE [facility] Comment:Cytology Results: Ne gative for intraepitheliallesion or malignancy. Cytology Comment SEE NOTE [facility] Comment:This Pap test has be en evaluated with computerassisted technology. Academic Manager: SEE NOTE [facility] Comment:[place], CT(ASCP)CT scre ening location: [place] [address] Review Academic Manager: [facility] Pathologist [facility] PAP Infection [facility] See Note SEE NOTE [facility] Comment:EXPLANATORY NOTE:The Pap is a screening test for cervical cancer. It isnot a diagnostic test and is subject to false negativeand false positive results. It is most reliable when asatisfactory sample, regularly obtained, is submittedwith relevant clinical findings and history, and whenthe Pap result is evaluated along with historic andcurrent clinical information. 12/05/2023 12/05/2023 Narrative [facility] - 12/11/2023 1:12 PM EDT SEE SCANNED RESULTS IN EMR us Generic External Data Provider LAB PATHOLOGY ORD ERABLES Final Result [facility] [address] [place] [address] [phone] * HEPATITIS C AB W/REFL TO HCV RNA, QN, PCR (03/16/2020 4:32 PM EST) HEPATITIS C ANTIBODY NON-REACT CORA NON-REACT CORA [facility] INDEX 0.02 <1.00 [facility] Comment: ?? HCV antibody was non-reactive. There is no laboratory ?? evidence of HCV infection. ?? In most cases, no further action is required. However, if recent HCV exposure is suspected, a test for HCV RNA (test code 30792) is suggested. ?? For additional information please refer to http://education.questdiagnostics.com/faq/HQL70x9 (This link is being provided for informational/ educational purposes only.) ?? 03/16/2020 4:32 PM EST Lu Estrada MD HISTORICAL/NON ORDERABLE LABS Fi nal Result Performing Organization Address [place] de Phone Number [facility] [address] * HIV 1/2 ANTIGEN/ANTIBODY,FOURTH GENERATION W/RFL (03/16/2020 4:32 PM EST) HIV-1/2 ANTIGEN AND ANTIBODIES, 4TH GENERATION W/ REFLEX NON-REACT CORA NON-REACT CORA [facility] Comment: HIV-1 antigen and HIV-1/HIV-2 antibodies were not detected. There is no laboratory evidence of HIV infection. ?? PLEASE NOTE: This information has been disclosed to you from records whose confidentiality may be protected by state law. ??If your state requires such protection, then the state law prohibits you from making any further disclosure of the information without the specific written consent of the person to whom it pertains, or as otherwise permitted by law. A general authorization for the release of medical or other information is NOT sufficient for this purpose. ? For additional information please refer to http://[employer] Capture.Spring/faq/WAJ529 (This link is being provided for informational/ educational purposes only.) ? The performance of this assay has not been clinically validated in patients less than 2 years old. ?? 03/16/2020 4:32 PM EST Lu Estrada MD LAB BLOOD ORDERABLES Final Resul t Performing Organization Address [place] de Phone Number [facility] [address] from Last 3 Months or Most Recently Relevant to Health Maintenance [place] STAND ADULT Care Teams [employer] Supervisor Relationship Specialty Start Date End Date Lu Estrada MD [address] [place] [address] PCP - General Family Medicine 03/27/18
--- OUTSIDE RECORDS SUMMARY | 2024-04-30 02:12 | XMS_ITS | Encounter Summary ---
Demographics Address [address] [facility] [facility] [address] [place] [address] Home Phone Work Phone Mobile Phone Email Address Preferred Language en Marital Status Single Gnosticist Affiliation Unknown Race Other Race Ethnic Group or Author Organization [employer] Address [address] [facility] 7t [place] [address] Care Team Providers Care Residential Leasing Agent Name Role Phone Lu Estrada MD Primary Care Provider [phone] Encounter Details Date Type Department Care Team ([facility] Contact Info) Description 03/28/2024 Orders Only [facility] MED & PEDS [address] [place] [address] Elliot Antunez MD [address] [place] [address] Social History Tobacco Use Types Packs/Day Years [...] Description 05/22/2024 2:30 PM EST Medication Management [facility] MEDICINE [address] [place] [address] Praful Weiner, PharmD [address] [place] [address] 06/18/2024 9:45 AM EDT Office Visit [facility] OPTOMETRY [address] [place] [address] TarAziza crawford, OD [address] [place] [address] 09/11/2024 10:00 AM EDT Office Visit [facility] ADULT DENTAL [address] [place] [address] Heidi Ennis [address] [place] [address] documented as of this encounter Visit Diagnoses Not on filedocumented in this encounter Additional Health Concerns Assessment Noted Time PHQ-9 Depression Total Score: 5 01/22/20 24 3:06 PM EDT documented as of this encounter Care Teams Residential Leasing Agent Relationship Specialty Start Date End Date Lu Estrada MD [address] [place] [address] PCP - General Family Medicine 03/27/18 documented as of this encounter
--- OUTSIDE RECORDS SUMMARY | 2024-04-30 02:12 | XMS_ITS | Encounter Summary ---
Author Organization [employer] Address [address] [place] [address] 7t [place] [address] Care Team Providers Care Printed Circuit Boards Laminator Name Role Phone Lu Estrada MD Primary Care Provider [phone] Reason for Visit * Reason Onset Date Comments Appointment Request 12/23/2022 Derm Encounter Details Date Type Department Care Team ([facility] st Contact Info) Description 12/23/2022 Telephone [facility] MEDICINE [address] [place] [address] Lu Estrada MD [address] [place] [address] Appointment Request (Derm ) Social History Tobacco Use Types Packs/Day Years [...] encounter Miscellaneous Notes * Telephone Encounter - Ghassan Del Rosario [place] - 12/23/2022 1:13 PM EDT T/C to pt is going to be contact for a new pt fu . * Telephone Encounter - Jody Leslie - 12/23/2022 9:15 AM EDT Tc from patient requesting to r/s derm appt from 12/23/22. Details: f/u documented in this encounter Plan of Treatment Upcoming Encounters Date Type Department Care Team (Late st Contact Info) Description 05/22/2024 2:30 PM EST Medication Management [facility] MEDICINE [address] [place] [address] Praful Weiner, PharmD [address] [place] [address] 06/18/2024 9:45 AM EDT Office Visit [facility] OPTOMETRY [address] [place] [address] Aziza Mckoy, OD [address] [place] [address] 09/11/2024 10:00 AM EDT Office Visit [facility] ADULT DENTAL [address] [place] [address] Raymon, Heidi [address] [place] [address] documented as of this encounter Visit Diagnoses Not on filedocumented in this encounter Care Teams Printed Circuit Boards Laminator Relationship Specialty Start Date End Date Lu Estrada MD [address] [place] [address] PCP - General Family Medicine 03/27/18 documented as of this encounter
--- OUTSIDE RECORDS SUMMARY | 2024-04-30 02:12 | XMS_ITS | Encounter Summary ---
Author Organization [employer] Address [address] [facility] 7t [place] [address] Care Team Providers Care Cinder Block Mason Name Role Phone Lu Estrada MD Primary Care Provider [phone] Reason for Visit * Reason Onset Date Comments Appointment Request 11/30/2023 Encounter Details Date Type Department Care Team ([facility] st Contact Info) Description 11/30/2023 Telephone [facility] MEDICINE [address] [place] [address] Lu Estrada MD [address] [place] [address] Appointment Request Social History Tobacco Use Types Packs/Day Years [...] the past 12 months, has t he [employer], gas, oil or water [employer] threatened to shut off services in your [...] encounter Miscellaneous Notes * Telephone Encounter - Bre Lord - 11/30/2023 9:36 AM EDT Tc from pt requesting to r/s PE appt schedueled for today 11/30/23, appt was cancelled. Polisher Balance Screwhead attempted to r/s however zero availability. Please contact at [phone] documented in this encounter Plan of Treatment Upcoming Encounters Date Type Department Care Team (Late st Contact Info) Description 05/22/2024 2:30 PM EST Medication Management [facility] MEDICINE [address] [place], [place] [phone] Praful Weiner, PharmD [address] [place] [address] 06/18/2024 9:45 AM EDT Office Visit [facility] OPTOMETRY [address] [place], [place] [phone] Aziza Mckoy, OD [address] [place] [address] 09/11/2024 10:00 AM EDT Office Visit [facility] ADULT DENTAL [address] [place] [address] Heidi Ennis [address] [place] [address] documented as of this encounter Visit Diagnoses Not on filedocumented in this encounter Additional Health Concerns Assessment Noted Time PHQ-9 Depression Total Score: 0 03/08/20 23 11:18 AM EST documented as of this encounter Care Teams Cinder Block Mason Relationship Specialty Start Date End Date Lu Estrada MD [address] [place] [address] PCP - General Family Medicine 03/27/18 documented as of this encounter
--- OUTSIDE RECORDS SUMMARY | 2024-04-30 02:12 | XMS_ITS | Encounter Summary ---
Author Organization [employer] Address [address] 7t [place] [address] Care Team Providers Care Cognos Name Role Phone Lu Estrada MD Primary Care Provider [phone] Encounter Details Date Type Department Care Team ([facility] st Contact Info) Description 04/29/2024 10:15 AM EST Office Visit [facility] MEDICINE [address] [place] [address] Lu Estrada MD [address] [place] [address] Primary hypertension (Primary Dx); Moderate persistent asthma without complication; Fibromyalgia; Chronic migraine without aura without status migrainosus, not intractable; Left sided abdominal pain; Chronic pain of left knee Social History Tobacco Use Types Packs/Day Years [...] AM EDT documented as of this encounter Last Filed Vital Signs Vital Sign Reading [...] Mass Index 31.84 04/29/2024 10:43 AM EST documented in this encounter Miscellaneous Notes * Assessment & Plan Note - Yovani Guzman - 04/29/2024 11:51 AM ESTAssociated Problem(s): Fibromyalgia - encouraged to stay active - recently prescribed amitriptyline which she had tried for migraine and was discontinued due to ineffectiveness for headache; continue for fibromyalgia (usually non-adherence is the reason for discontinuation) - continue judicious use of cyclobenzaprine * Assessment & Plan Note - Yovani Guzman - 04/29/2024 11:51 AM ESTAssociated Problem(s): Hypertension - Renewed lisinopril, told to keep a bp log, bp target <140/90, keep low sodium diet - BP not at goal today * Assessment & Plan Note - Yovani Guzman - 04/29/2024 11:50 AM ESTAssociated Problem(s): Asthma -last exacerbation requiring prednisone in 2018 -continue Advair as maintenance -continue albuterol -continue Singulair * Assessment & Plan Note - Lu Estrada MD - 04/28/2024 4:12 PM ESTAssociated Problem(s): Migraine -seen by [facility] neurologist in Apr 2019 -seen by [facility] neurology in Dec 2022 -04/23/[address] normal -Treatment Hx: --changed amitripytline to impiramine for both IBS and ESPINOSA, but pt self- discontinued due to its sideeffect --tried sumatriptan which was ineffective -- previously [...] that is not improved by other oral medications.Limit 10 tabs per 3 months. Patient agreed with plan. documented in this encounter Plan of Treatment Upcoming Encounters Date Type Department Care Team (Late st Contact Info) Description 05/22/2024 2:30 PM EST Medication Management [facility] MEDICINE [address] [place] [address] Praful Weiner, PharmD [address] [place] [address] 06/18/2024 9:45 AM EDT Office Visit [facility] OPTOMETRY [address] [place] [address] Tarka, Aziza, OD [address] [place] [address] 09/11/2024 10:00 AM EDT Office Visit [facility] ADULT DENTAL [address] [place] [address] Raymon Heidi [address] [place] [address] Scheduled Orders Name Type Priority Associated Diagnoses Orde r Schedule Culture, Urine, Routine Microbiology Routine Left sided abdominal pain Expected: 04/29/2024 (Approximate), Expires: 04/29/2025 Chlamydia/N. Gonorrhoeae RNA, TMA, Urogenitial Microbiology Routine Left sided abdominal pain Expected: 04/29/2024 (Approximate), Expires: 04/29/2025 XR Knee 1-2 Views Left Imaging Routine Chronic pain of left knee Expected: 04/29/2024, Expires: 04/29/2025 documented as of this encounter Procedures Procedure Name Priority Date/Time Associated Diagnosis Comments POCT URINALYSIS DIPSTICK Routine 04/29/2024 11:43 AM EST Left sided abdominal pain documented in this encounter Results * POCT urinalysis dipstick manually resulted (04/29/2024 [...] CARE TEST ENTER/EDIT OR DERABLES Final Result documented in this encounter Visit Diagnoses Diagnosis Primary hypertension- Primary Unspecified essential hypertension Moderate persistent asthma without complication Fibromyalgia Unspecified myalgia and myositis Chronic migraine without aura without status migrainosus, not intractable Left sided abdominal pain Abdominal pain, unspecified site Chronic pain of left knee documented in this encounter Additional Health Concerns Assessment Noted Time PHQ-9 Depression Total Score: 5 01/22/20 24 3:06 PM EDT documented as of this encounter Care Teams Cognos Relationship Specialty Start Date End Date Lu Estrada MD [address] [place] [address] PCP - General Family Medicine 03/27/18 documented as of this encounter
--- OUTSIDE RECORDS SUMMARY | 2024-04-30 02:12 | XMS_ITS | Encounter Summary ---
Author Organization [employer] Address [address] [place] [address] 7t [place] [address] Care Team Providers Care Truss Assembler Name Role Phone Lu Estrada MD Primary Care Provider [phone] Encounter Details Date Type Department Care Team (Late st Contact Info) Description 02/23/2022 Abstract [facility] ADULT DENTAL [address] [place] [address] Dental, Provider, DDS Social History Tobacco Use [...] Description 05/22/2024 2:30 PM EST Medication Management [facility] MEDICINE [address] [place] [address] Praful Weiner, PharmD [address] [place] [address] 06/18/2024 9:45 AM EDT Office Visit [facility] OPTOMETRY [address] [place] [address] Aziza Mckoy, OD [address] [place] [address] 09/11/2024 10:00 AM EDT Office Visit [facility] ADULT DENTAL [address] [place] [address] Heidi Ennis [address] [place] [address] documented as of this encounter Procedures Procedure Name Priority Date/Time Associated Diagnosis Comments 14 O AMALGAM FILLING Routine 02/23/2022 12:00 AM EST documented in this encounter Visit Diagnoses Not on filedocumented in this encounter Care Teams Truss Assembler Relationship Specialty Start Date End Date Lu Estrada MD [address] [place] [address] PCP - General Family Medicine 03/27/18 documented as of this encounter
--- OUTSIDE RECORDS SUMMARY | 2024-04-30 02:13 | XMS_ITS | Encounter Summary ---
Author Organization [employer] Address [address] [facility] 7t [place] [address] Care Team Providers Care Financial Aid Name Role Phone Lu Estrada MD Primary Care Provider [phone] Reason for Visit * Reason Onset Date Comments Letter for School/Work 04/27/2023 Encounter Details Date Type Department Care Team ([facility] Contact Info) Description 04/27/2023 Telephone [facility] MEDICINE [address] [place] [address] Lu Estrada MD [address] [place], [place] [phone] Letter for School/Work Social History Tobacco Use Types Packs/Day Years [...] encounter Miscellaneous Notes * Telephone Encounter - Desiree Echavarria - 04/27/2023 3:49 PM EST Tc from pt requesting a letter for work, due to absences pt sated covid vaccine is giving symptoms and can not go work. documented in this encounter Plan of Treatment Upcoming Encounters Date Type Department Care Team (Late st Contact Info) Description 05/22/2024 2:30 PM EST Medication Management [facility] MEDICINE [address] [place] [address] Praful Weiner, PharmD [address] [place] [address] 06/18/2024 9:45 AM EDT Office Visit [facility] OPTOMETRY [address] [place] [address] Aziza Mckoy, OD [address] [place] [address] 09/11/2024 10:00 AM EDT Office Visit [facility] ADULT DENTAL [address] [place] [address] Heidi Ennis [address] [place] [address] documented as of this encounter Visit Diagnoses Not on filedocumented in this encounter Additional Health Concerns Assessment Noted Time PHQ-9 Depression Total Score: 0 03/08/20 23 11:18 AM EST documented as of this encounter Care Teams Financial Aid Relationship Specialty Start Date End Date Lu Estrada MD [address] [place] [address] PCP - General Family Medicine 03/27/18 documented as of this encounter
--- OUTSIDE RECORDS SUMMARY | 2024-04-30 02:13 | XMS_ITS | Encounter Summary ---
Author Organization [employer] Address [address] [facility] 7t [place] [address] Care Team Providers Care Brass Wind Instruments Tube Bender Name Role Phone Lu Estrada MD Primary Care Provider [phone] Reason for Visit * Reason Comments Med Refill Encounter Details Date Type Department Care Team ([facility] st Contact Info) Description 03/09/2023 Refill [facility] MEDICINE [address] [place] [address] Lu Estrada MD [address] [place], [place] [phone] Social History Tobacco Use Types Packs/Day Years [...] 2:30 PM EST Medication Management [facility] MEDICINE [address] [place] [address] Praful Weiner, PharmD [address] [place] [address] 06/18/2024 9:45 AM EDT Office Visit [facility] OPTOMETRY [address] [place] [address] TarAziza crawford, OD [address] [place] [address] 09/11/2024 10:00 AM EDT Office Visit [facility] ADULT DENTAL [address] [place] [address] Raymon, Heidi [address] [place] [address] documented as of this encounter Visit Diagnoses Not on filedocumented in this encounter Additional Health Concerns Assessment Noted Time PHQ-9 Depression Total Score: 0 03/08/20 23 11:18 AM EST documented as of this encounter Care Teams Br[employer] Tube Bender Relationship Specialty Start Date End Date Lu Estrada MD [address] [place] [address] PCP - General Family Medicine 03/27/18 documented as of this encounter
--- OUTSIDE RECORDS SUMMARY | 2024-04-30 02:13 | XMS_ITS | Encounter Summary ---
Author Organization [employer] Address [address] [facility] 7t [place] [address] Care Team Providers Care Inspector Assemblies And Installations Name Role Phone Lu Estrada MD Primary Care Provider [phone] Reason for Visit * Reason Onset Date Comments Appointment 07/05/2022 Encounter Details Date Type Department Care Team ([facility] st Contact Info) Description 07/05/2022 Telephone [facility] ADULT DENTAL [address] [place] [address] Raymon, Heidi [address] [place] [address] Appointment Social History Tobacco Use Types Packs/Day Years [...] encounter Miscellaneous Notes * Telephone Encounter - Romi Valentin - 07/05/2022 3:06 PM EDT In [employer] patient had appt for prophy exam xrays requested since July 2021. She was calling to checkin on status of appt. It is not currently requested in [facility] and I dont know if to request or not sure if the [employer] list is blended with Epic list. documented in this encounter Plan of Treatment Upcoming Encounters Date Type Department Care Team (Late st Contact Info) Description 05/22/2024 2:30 PM EST Medication Management [facility] MEDICINE [address] [place] [address] Praful Weiner, PharmD [address] [place] [address] 06/18/2024 9:45 AM EDT Office Visit [facility] OPTOMETRY [address] [place] [address] Aziza Mckoy, OD [address] [place] [address] 09/11/2024 10:00 AM EDT Office Visit [facility] ADULT DENTAL [address] [place] [address] Raymon, Heidi [address] [place] [address] documented as of this encounter Visit Diagnoses Not on filedocumented in this encounter Care Teams Inspector Assemblies And Installations Relationship Specialty Start Date End Date Lu Estrada MD [address] [place] [address] PCP - General Family Medicine 03/27/18 documented as of this encounter
--- OUTSIDE RECORDS SUMMARY | 2024-04-30 02:13 | XMS_ITS | Encounter Summary ---
Author Organization [employer] Address 75 [facility] 7t [place] [address] Care Team Providers Care Database Design Analyst Name Role Phone Lu Estrada MD Primary Care Provider [phone] Reason for Visit * Reason Comments Med Refill Encounter Details Date Type Department Care Team ([facility] st Contact Info) Description 05/01/2023 Refill [facility] MEDICINE [address] [place], [place] [phone] Lorri Eduardo DO [address] [place], [place] [phone] Social History Tobacco Use Types Packs/Day Years [...] Description 05/22/2024 2:30 PM EST Medication Management [facility] MEDICINE [address] [place] [address] Praful Weiner, PharmD [address] [place] [address] 06/18/2024 9:45 AM EDT Office Visit [facility] OPTOMETRY [address] [place] [address] TarAziza crawford, OD [address] [place] [address] 09/11/2024 10:00 AM EDT Office Visit [facility] ADULT DENTAL [address] [place] [address] Heidi Ennis [address] [place] [address] documented as of this encounter Visit Diagnoses Not on filedocumented in this encounter Additional Health Concerns Assessment Noted Time PHQ-9 Depression Total Score: 0 03/08/20 23 11:18 AM EST documented as of this encounter Care Teams Database Design Analyst Relationship Specialty Start Date End Date Lu Estrada MD [address] [place] [id number] PCP - General Family Medicine 03/27/18 documented as of this encounter
--- OUTSIDE RECORDS SUMMARY | 2024-04-30 02:13 | XMS_ITS | Encounter Summary ---
Author Organization [employer] Address 75 [facility] 7t [place] [address] Care Team Providers Care Senior Construction Project Manager Name Role Phone Lu Estrada MD Primary Care Provider [phone] Reason for Visit * Reason Comments Med Refill Encounter Details Date Type Department Care Team ([facility] st Contact Info) Description 03/09/2023 Refill [facility] MEDICINE [address] [place] [address] Lorri Eduardo DO [address] [place], [place] [phone] Social History Tobacco Use Types Packs/Day Years [...] Description 05/22/2024 2:30 PM EST Medication Management [facility] MEDICINE [address] [place] [address] Praful Weiner, PharmD [address] [place] [address] 06/18/2024 9:45 AM EDT Office Visit [facility] OPTOMETRY [address] [place] [address] TarAziza crawford, OD [address] [place] [address] 09/11/2024 10:00 AM EDT Office Visit [facility] ADULT DENTAL [address] [place] [address] Heidi Ennis [address] [place] [address] documented as of this encounter Visit Diagnoses Not on filedocumented in this encounter Additional Health Concerns Assessment Noted Time PHQ-9 Depression Total Score: 0 03/08/20 23 11:18 AM EST documented as of this encounter Care Teams Senior Construction Project Manager Relationship Specialty Start Date End Date Lu Estrada MD [address] [place] [phone] PCP - General Family Medicine 03/27/18 documented as of this encounter
--- OUTSIDE RECORDS SUMMARY | 2024-04-30 02:13 | XMS_ITS | Encounter Summary ---
Author Organization [employer] Address [address] [facility] [address] 7[address] [place] [address] Care Team Providers Care Senior Mobile Application Developer Name Role Phone Lu Estrada MD Primary Care Provider [phone] Reason for Visit * Reason Comments Med Refill Encounter Details Date Type Department Care Team ([facility] st Contact Info) Description 03/09/2023 Refill [facility] MED & PEDS [address] [place], [place] [phone] Vandana Black, ANP [address] [place] [address] Social History Tobacco Use Types Packs/Day Years [...] Description 05/22/2024 2:30 PM EST Medication Management [facility] MEDICINE [address] [place] [address] Praful Weiner, PharmD [address] [place] [address] 06/18/2024 9:45 AM EDT Office Visit [facility] OPTOMETRY [address] [place] [address] TarAziza crawford, OD [address] [place] [address] 09/11/2024 10:00 AM EDT Office Visit [facility] ADULT DENTAL [address] [place] [address] Raymon, Heidi [address] [place] [address] documented as of this encounter Visit Diagnoses Not on filedocumented in this encounter Additional Health Concerns Assessment Noted Time PHQ-9 Depression Total Score: 0 03/08/20 23 11:18 AM EST documented as of this encounter Care Teams Senior Mobile Application Developer Relationship Specialty Start Date End Date Lu Estrada MD [address] [place] [id number] PCP - General Family Medicine 03/27/18 documented as of this encounter
[2024-04-30 02:39] LABS: Alkaline Phosphatase 50 U/L (39-117)
--- NOTE | 2024-04-30 04:15 | PC.NURSE ---
d/t wait time consulted MD Santillan about pt sx, per verbal order abd pelvis ct scan with iv contrast ordered. pt states shes not diabetic/no kidney issues, previously received iv contrast without se.
[2024-04-30] MEDS: iohexoL 350 MG/ML 100 ML INFUS..BTL 85 ML IV (04:24)
--- NOTE | 2024-04-30 04:53 | PC.NURSE ---
pt reports 10/10 pain, verbal order for 30mg ivp toradol from MD Santillan.
[2024-04-30] MEDS: Ketorolac Tromethamine 30 MG/ML VIAL IVPUSH (05:20)
--- NOTE | 2024-04-30 05:22 | PC.NURSE ---
Pt a&ox4, no signs of distress. Pt reports 01/03 pain Pt medicated per mar Plan of care ongoing.
[2024-04-30 06:22] VITALS: BP 110/67; PULSE 59; RESP 16; TEMP 36.6; O2SAT 97
--- NOTE | 2024-04-30 07:15 | ED.ABDPAIN ---
HPI - Abdominal Pain General Chief Complaint: Abdominal Pain Stated Complaint: abd pain Time Seen by Provider: 04/30/24 06:37 Source: patient, RN notes reviewed and old records reviewed Mode of arrival: ambulatory History of Present Illness ED Provider: Rosaura Butler PA-C HPI narrative: 38-year-old female with a past medical history HTN, IBS, fibromyalgia, asthma, migraines, presenting to the ED complaining of left-sided abdominal pain x 1 week with radiation to LLE and left flank. States pain is constant. Took Motrin, Tylenol, and Flexeril [employer] without relief. Denies known injury, trauma, fall, fever, chest pain nausea, vomiting, dysuria/hematuria, incontinence/retention Related Data Home Medications ?Medication ?Instructions ?Recorded ?Confirmed albuterol sulfate 90 mcg/actuation 1 inh inhalation QID 01/15/20 12/05/23 aerosol inhaler (Proventil HFA) ggpeoil-mvhbhlmqqskzo-tdlochby 250 1 tab PO Q4-6H PRN Headache 01/15/20 12/05/23 mg-250 mg-65 mg tablet (Excedrin Migraine) loratadine 10 mg tablet (Allergy 10 mg PO DAILY 01/15/20 12/05/23 Relief (loratadine)) montelukast 10 mg tablet 10 mg PO BEDTIME 01/15/20 12/05/23 (Singulair) cholecalciferol (vitamin D3) 50 50 mcg PO DAILY 03/16/22 12/05/23 mcg (2,000 unit) capsule (Vitamin D3) lisinopril 10 mg tablet 10 mg PO DAILY 03/16/22 12/05/23 pantoprazole 40 mg tablet,delayed 40 mg PO BID 03/16/22 12/05/23 release fluticasone 250 mcg-salmeterol 50 1 ea inhalation BID 12/02/22 12/05/23 mcg/dose blistr powdr for inhalation (Advair Diskus) topiramate 25 mg tablet 25 mg PO BEDTIME 12/02/22 12/05/23 Previous Rx's ?Medication ?Instructions ?Recorded famotidine 20 mg tablet (Acid 20 mg PO BID #60 tabs 06/23/21 Quality Assurance Qa Lab Technician (famotidine)) ddanqoojdy-qgopwwscruphs-tjokmafw 1 cap PO Q8H PRN pain #3 caps 08/09/21 50 mg-300 mg-40 mg capsule (Fioricet) sumatriptan succinate 50 mg tablet 50 mg PO Q2-4H PRN migraine 03/24/22 headache #14 tabs acetaminophen 500 mg tablet 1,000 mg (2 x 500 mg) PO QID PRN 08/25/22 pain #30 tabs ibuprofen 600 mg tablet 600 mg PO Q6H PRN pain #20 tabs 08/25/22 ondansetron 4 mg disintegrating 4 mg PO Q8H #10 tabs 12/02/22 tablet propranolol 60 mg capsule,24 60 mg PO BEDTIME #90 caps 12/19/22 hr,extended release polyethylene glycol 3350 17 17 g PO DAILY #510 grams 06/02/23 gram/dose oral powder (Miralax) psyllium husk 3.4 gram/5.4 gram 1 tbsp PO BID #660 grams 06/02/23 oral powder (Metamucil) sucralfate 1 gram tablet (Carafate) 1 g PO TID #20 tabs 09/13/23 cyclobenzaprine 10 mg tablet 10 mg PO TID PRN muscle spasm #20 11/08/23 tabs cyclobenzaprine 10 mg tablet 10 mg PO TID #10 tabs 01/13/24 naproxen 500 mg tablet (Naprosyn) 500 mg PO BID #20 tabs 01/13/24 ibuprofen 600 mg tablet 600 mg PO Q6H PRN fever or pain 02/19/24 #30 tabs gabapentin 100 mg capsule 100 mg PO TID #30 caps 03/04/24 acetaminophen 500 mg tablet 500 mg PO Q6H PRN fever or pain 04/30/24 (Tylenol Extra Strength) #14 tabs cyclobenzaprine 5 mg tablet 5 mg PO Q8H PRN pain (scale score 04/30/24 7-10) 5 days #14 tabs lidocaine 5 % topical patch 1 patch topical DAILY PRN pain #30 04/30/24 (Lidoderm) ea naproxen 500 mg tablet 500 mg PO BID PRN pain 10 days #20 04/30/24 tabs Allergies Allergy/AdvReac Type Severity Reaction Status Date / Time No Known Allergies Allergy Verified 04/30/24 00:53 [No Known Allergies*] Review of Systems Review of Systems Yes all other systems are reviewed and are negative Constitutional: Reports as per HPI Denies Sensory deficit (Neuro) PMFSH Past Medical History Attestation statement: The following information was validated with the patient. Source: old records reviewed Medical History Simple ovarian cyst Hypertension IBS (irritable bowel syndrome) Fibromyalgia Asthma Migraines Surgical History Hx of colonoscopy History of esophagogastroduodenoscopy (EGD) History of loop electrical excision procedure (LEEP) Hx of tubal ligation Family History Family History Mother Diabetes HTN (hypertension) Asthma Brother Asthma Social History Social History Household Members: Children Are you a primary memory care program resident to a significant other at home: No (children 15,10,8 Mother will assist with care) Do you presently have visiting nurse or other home services: No Alcohol intake: never Patient Tobacco Use Status: Never used Tobacco Substance Use Type: Marijuana Current occupational status: employed 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 Sexual orientation: Straight/Heterosexual Gender identity: Female Physical Exam ED Vital Signs: Vital Signs - 24 hr 04/30/24 00:47 04/30/24 06:22 04/30/24 07:39 Temperature 98.5 F 97.9 F 98.0 F Pulse Rate 69 59 58 Respiratory Rate 16 16 18 Blood Pressure 112/72 110/67 108/69 Pulse Oximetry 100 97 99 Oxygen Delivery Method Room Air Room Air Room Air 04/30/24 07:40 Temperature 98.0 F Pulse Rate 58 Respiratory Rate 18 Blood Pressure 108/69 Pulse Oximetry 99 Oxygen Delivery Method Room Air BMI result Body Mass Index 33.1 Const General: cooperative, healthy appearing and no acute distress Orientation/consciousness: patient oriented x3 Limitations: no limitations HENMT Head: Yes normal to inspection and Yes atraumatic Ears: hearing grossly normal bilaterally General nose exam: Normal external nose present Face and sinus: Yes normal facial exam Eyes General: appearance normal, both eyes and all related structures EOM: EOMs intact bilaterally Neck Neck: Yes normal visual inspection and Yes no meningeal signs Chest Chest palpation & inspection: normal inspection of the chest, no crepitus and no tenderness Resp Effort & Inspection: normal respiratory effort and no respiratory distress Auscultation: clear to auscultation bilaterally Cardio Rate: regular rate Heart sounds: S1 normal heart sound present and S2 normal heart sound present GI Inspection: Yes normal to inspection Palpation (GI): Soft to palpation, Tenderness to palpation present (GI) (Left-sided abdominal tenderness) with no rebound tenderness, no guarding and not rigid General: Yes CVA tenderness on the left Back/Spine/Pelvis Other: No midline cervical/thoracic/lumbar spinous tenderness/step-off or deformity Back: CVA tenderness Skin Rashes: no rashes Wounds: no wounds Neuro Other: Strength intact throughout. No saddle anesthesia. Sensation intact to light touch. Neurovascular intact distally General: patient oriented x3, gait normal, tone normal, moves all extremities, no meningeal signs and no focal motor deficits Cranial nerves: Yes CN's II-XII intact bilaterally Gait exam (Neuro): Normal gait present Sensory Exam: No Sensory deficit (Neuro) Extrem General: Yes normal to inspection Course Course Course Narrative: -0719--no leukocytosis. Lipase minimally elevated to 86 > no epigastric tenderness on exam. -UA negative, no blood CT abdomen and pelvis with contrast IMPRESSION: No findings to explain left-sided flank or abdominal pain. Asymmetric area of density within the outer aspect of the right breast that could be focal dense breast tissue or a mass measuring 19 mm. Diagnostic mammogram recommended. > no appreciable abnormality/mass, skin changes, or nipple discharge on breast exam. Recommended outpatient mammogram. Patient is supplied with copy results Results discussed with patient including worrisome signs and symptoms and strict return precautions, and when to return to the emergency department. They verbalized understanding and feel safe for discharge at this time. Medical Decision Making Medical Decision Making MDM Narrative: 38-year-old female with a past medical history HTN, IBS, fibromyalgia, asthma, migraines, presenting to the ED complaining of left-sided abdominal pain x 1 week with radiation to LLE and left flank. On exam vital signs stable, NAD, nontoxic appearing, physical exam as noted above with left-sided abdominal reproducible tenderness in left CVAT. No rash/ecchymosis or erythema. No flail chest. No midline spinous tenderness or red flag symptoms. No saddle anesthesia. Concern for MSK pain/strain vs diverticulitis vs pyelo vs UTI. Lower suspicion for rib fracture without noted trauma. Unlikely cauda equina/cord compression or epidural abscess. Plan: Labs, UA, CT, pain control Please refer to course for remaining clinical decision making, interpretation of labs/imaging results, and discussions with consultants and/or family members. Differential Diagnosis Differential Diagnoses: The differential diagnosis associated with the presentation includes As above Admission/Observation Consideration of admission/observation: Escalation of care including admission/observation considered Lab Data MDM Lab Attestation statement: I reviewed the patient's lab results. 04/30/24 01:09 04/30/24 01:09 Labs: Lab Results 04/30/24 Range/Units 01:09 WBC 7.6 (4.8-10.8) X10*3/uL RBC 4.02 L (4.20-5.50) X10*6/uL Hgb 11.6 L (12.0-16.0) g/dl Hct 35.4 L (37.0-47.0) % MCV 88.1 (80.0-98.0) fL MCH 28.9 (27.0-33.0) pg MCHC 32.8 (31.0-35.0) g/dl RDW 14.2 (11.0-16.0) % Plt Count 255 (160-400) X10*3/uL MPV 9.7 (9.4-12.3) fL Immature Gran % (Auto) 0.3 (0.0-0.4) % Neut % (Auto) 39.1 L (45-73) % Lymph % (Auto) 53.0 H (20-40) % [place] % (Auto) 5.9 (2-11) % Eos % (Auto) 1.3 (0-4) % Baso % (Auto) 0.4 (0-2) % Lymph # (Auto) 4.0 (1.2-4.9) X10*3/uL [place] # (Auto) 0.5 (0.1-1.2) X10*3/uL Eos # (Auto) 0.1 (0.0-0.4) X10*3/uL Baso # (Auto) 0.0 (0.0-0.2) X10*3/uL Abs Immat Gran (auto) 0.02 (0.00-0.03) X10*3/uL Absolute Neuts (auto) 3.0 (2.0-8.3) x10*3/uL Absolute Nucleated RBC 0.000 (0.0-0.012) X10*3/uL Nucleated RBC % (auto) 0.0 (0.0-0.2) /100WBC Sodium 140 (135-145) mmol/L Potassium 4.1 (3.3-5.1) mmol/L Chloride 108 (96-108) mmol/L Carbon Dioxide 24 (22-29) mmol/L Anion Gap 12 (12-20) BUN 11 (9-16) mg/dL Creatinine 0.88 (0.5-1.4) mg/dL Estim Creat Clear Calc 101.5 Estimated GFR > 60 Random Glucose 95 (60-115) mg/dL Calcium 8.9 (8.4-10.2) mg/dL Total Bilirubin 0.3 (0.0-1.0) mg/dL AST 16 (5-31) U/L ALT 8 (0-31) U/L Alkaline Phosphatase 50 (39-117) U/L Total Protein 7.2 (6.5-8.0) g/dL Albumin 3.9 (3.5-5.0) g/dL Lipase 86 H (8-78) U/L Beta HCG, Quant < 2 mIU/mL Urine Color Yellow Urine Appearance Clear Urine pH 5.5 (5.0-9.0) Ur Specific Bailey 1.025 (1.005-1.025) Urine Protein Negative (Neg-Trace) mg/dL Urine Glucose (UA) Negative (Negative) mg/dL Urine Ketones Negative (Negative) mg/dL Urine Blood Negative (Negative) Urine Nitrite Negative (Negative) Ur Leukocyte Esterase Negative (Negative) Urine RBC 0-2 (0-2) /HPF Urine WBC 0-5 (0-5) /HPF Ur Squamous Epith Cells 3-5 (0-2) /HPF Urine Bacteria Trace (None Seen) Hyaline Casts 0-2 (0-2) /LPF Independent Interpretation I performed an independent interpretation of an: CT Scan Radiology Impression Discussion of test interpretation with radiology: I have reviewed the radiologist's reading. External Record Review External record reviewed: Inpatient record, Office record, Outpatient record, Prior outpatient labs, Prior outpatient radiology, Primary care record and Outside ED record Tests considered The following testing was considered but not selected: As above Prescription Management I considered prescription management with: Pain Medication Chronic Conditions Patient?s care impacted by: Other Social Determinants Patient?s care significantly limited by Social Determinants of Health including: Other Social Determinant of Health Medications Administered Discontinued Medications Generic Name Dose Route Start Last Admin Trade Name Freq PRN Reason Stop Dose Admin Iohexol 85 ml 04/30/24 04:23 04/30/24 04:24 Iohexol 350 Mg/Ml 100 Ml Infus..Btl IV 04/30/24 04:24 85 ml ONCE ONE Administration Ketorolac Tromethamine 30 mg 04/30/24 04:53 04/30/24 05:20 Ketorolac Tromethamine 30 Mg/Ml Vial IVPUSH 04/30/24 04:54 30 mg ONCE ONE Administration Discharge Plan Discharge Clinical Impression: Left sided abdominal pain, Flank pain, Breast mass, right Patient Disposition: Home, Self-Care Instructions: Abdominal Pain (ED), Flank Pain (ED), Breast Mass (ED) Additional Instructions: Your blood work is reassuring Your CT scan showed a right breast mass recommending an outpatient mammogram. Please call your PCP to schedule this. CT abdomen/pelvis with IV contrast IMPRESSION: No findings to explain left-sided flank or abdominal pain. Asymmetric area of density within the outer aspect of the right breast that could be focal dense breast tissue or a mass measuring 19 mm. Diagnostic mammogram recommended If her pain persists or worsens/becomes unbearable, you have difficulty or inability to ambulate, urinate, incontinence/retention return to the ED immediately Flexeril is a muscle relaxer, take at night as it makes you drowsy, do not drive, drink alcohol, or operate machinery while taking it Naproxen as an anti-inflammatory / pain medication, take with food Lidoderm patches are numbing patches, apply to painful area In addition take Tylenol at home If symptoms persist or worsen, pain becomes unbearable, you developed urinary retention or incontinence, or weakness return to the ED Prescriptions: New acetaminophen [Tylenol Extra Strength] 500 mg tablet 500 mg PO Q6H PRN (Reason: fever or pain) Qty: 14 0RF lidocaine [Lidoderm] 5 % adhesive patch,medicated 1 patch topical DAILY MDD remove after 12 hours PRN (Reason: pain) Qty: 30 0RF Rx Instructions: leave on most painful area for up to 12 hrs naproxen 500 mg tablet 500 mg PO BID PRN (Reason: pain) 10 Days Qty: 20 0RF cyclobenzaprine 5 mg tablet 5 mg PO Q8H PRN (Reason: pain (scale score 7-10)) 5 Days Qty: 14 0RF No Action famotidine [Acid Quality Assurance Qa Lab Technician (famotidine)] 20 mg tablet 20 mg PO BID Qty: 60 6RF propranolol 60 mg capsule,extended release 24 hr 60 mg PO BEDTIME Qty: 90 1RF sfwnzdgglq-fkqhqdhhdwmud-hwav [Fioricet] 50-300-40 mg capsule 1 cap PO Q8H PRN (Reason: pain) Qty: 3 0RF acetaminophen 500 mg tablet 1,000 mg PO QID PRN (Reason: pain) Qty: 30 0RF ibuprofen 600 mg tablet 600 mg PO Q6H PRN (Reason: pain) Qty: 20 0RF cyclobenzaprine 10 mg tablet 10 mg PO TID Qty: 10 0RF naproxen [Naprosyn] 500 mg tablet 500 mg PO BID Qty: 20 0RF gabapentin 100 mg capsule 100 mg PO TID Qty: 30 0RF sucralfate [Carafate] 1 gram tablet 1 g PO TID Qty: 20 0RF cyclobenzaprine 10 mg tablet 10 mg PO TID PRN (Reason: muscle spasm) Qty: 20 0RF ibuprofen 600 mg tablet 600 mg PO Q6H PRN (Reason: fever or pain) Qty: 30 0RF albuterol sulfate [Proventil HFA] 90 mcg/actuation HFA aerosol inhaler 1 inh inhalation QID montelukast [Singulair] 10 mg tablet 10 mg PO BEDTIME loratadine [Allergy Relief (loratadine)] 10 mg tablet 10 mg PO DAILY Excedrin Migraine 250-250-65 mg tablet 1 tab PO Q4-6H PRN (Reason: Headache) lisinopril 10 mg tablet 10 mg PO DAILY cholecalciferol (vitamin D3) [Vitamin D3] 50 mcg (2,000 unit) capsule 50 mcg PO DAILY pantoprazole 40 mg tablet,delayed release (DR/EC) 40 mg PO BID sumatriptan succinate 50 mg tablet 50 mg PO Q2-4H PRN (Reason: migraine headache) Qty: 14 3RF Rx Instructions: do not exceed 4 doses per 24 hrs fluticasone propion-salmeterol [Advair Diskus] 250-50 mcg/dose blister with device 1 ea inhalation BID topiramate 25 mg tablet 25 mg PO BEDTIME ondansetron 4 mg tablet,disintegrating 4 mg PO Q8H Qty: 10 0RF polyethylene glycol 3350 [Miralax] 17 gram/dose powder 17 g PO DAILY Qty: 510 2RF Metamucil 3.4 gram/5.4 gram powder 1 tbsp PO BID Qty: 660 2RF Rx Instructions: mix into at least 8 oz of water or juice before administering Referrals: Lu Estrada MD [Primary Care Provider] - 5 days Stand Alone Forms: Work/School Release Interventions: ED Discharge Assessment Last Done: 04/30/24 07:40 Discharge Date/Time: 04/30/24 07:46 Print Language: Kinyarwanda
[2024-04-30 07:39] VITALS: BP 108/69; PULSE 58; RESP 18; TEMP 36.7; O2SAT 99
[2024-04-30 07:40] VITALS: BP 108/69; PULSE 58; RESP 18; TEMP 36.7; O2SAT 99
== END 2024-04-30 07:46 | disposition home or self-care (01) ==
PROVIDERS: Emergency Provider Emergency Medicine; PCP Family Medicine
DX: N63.10 Unspecified lump in the right breast, unspecified quadrant (principal); R10.2 Pelvic and perineal pain; M79.605 Pain in left leg; I10 Essential (primary) hypertension; Z79.899 Other long term (current) drug therapy
CPT/HCPCS: 36415; 74177; 80053; 81001; 83690; 84702; 85025; 96374; 99284; J1885; Q9967

== ENCOUNTER → 2024-04-30 04:19 | Outpatient (BNV) | payer MEDICAID, SELFPAY | PROVIDERS: PCP Family Medicine; Visit Provider Radiology Diagnostic Radiology | DX: R10.9 Unspecified abdominal pain (principal) | CPT/HCPCS: 74177 ==

== ENCOUNTER 2024-05-08 21:10 | Emergency (ER) | payer MEDICAID, SELFPAY ==
[2024-05-08 21:18] VITALS: BP 155/98; PULSE 69; RESP 17; TEMP 36.7; O2SAT 100; BMI 31.1
--- OUTSIDE RECORDS SUMMARY | 2024-05-08 21:27 | XMS_ITS | Encounter Summary ---
Author Organization [employer] Address [address] [facility] 7t [place] [address] Care Team Providers Care Ticket Seller Name Role Phone Lu Estrada MD Primary Care Provider [phone] Reason for Visit * Reason Onset Date Comments Appointment 07/05/2022 Encounter Details Date Type Department Care Team ([facility] st Contact Info) Description 07/05/2022 Telephone [facility] ADULT DENTAL [address] [place] [address] Raymon, Heidi [address] [place] [address] Appointment Social History Tobacco Use Types Packs/Day [...] appt. It is not currently requested in [facility] and I dont know if to request or not sure if the Nex Gen list is blended with Epic list. DR documented in this encounter Plan of Treatment Upcoming Encounters Date Type Department Care Team (Late st Contact Info) Description 05/21/2024 3:15 PM EST Office Visit [facility] MEDICINE [address] [place] [address] Lu Estrada MD [address] [place] [address] 05/22/2024 2:30 PM EST Medication Management [facility] MEDICINE [address] [place] [address] Praful Weiner, PharmD [address] [place] [address] 06/18/2024 9:45 AM EDT Office Visit [facility] OPTOMETRY [address] [place] [address] TarkaAziza, OD [address] [place] [address] 09/11/2024 10:00 AM EDT Office Visit [facility] ADULT DENTAL [address] [place] [address] Raymon, Heidi [address] [place] [address] documented as of this encounter Visit Diagnoses Not on filedocumented in this encounter Care Teams Ticket Seller Relationship Specialty Start Date End Date Lu Estrada MD [address] [place] [address] PCP - General Family Medicine 03/27/18 documented as of this encounter
--- OUTSIDE RECORDS SUMMARY | 2024-05-08 21:27 | XMS_ITS | Encounter Summary ---
Author Organization [employer] Address 75 [facility] 7t [place] [address] Care Team Providers Care Lug Loader Name Role Phone Lu Estrada MD Primary Care Provider [phone] Reason for Visit * Reason Comments Med Refill Encounter Details Date Type Department Care Team ([facility] st Contact Info) Description 03/09/2023 Refill [facility] MEDICINE [address] [place] [address] Lorri Eduardo DO [address] [place], [place] [phone] Social History Tobacco Use Types Packs/Day Years [...] Description 05/21/2024 3:15 PM EST Office Visit [facility] MEDICINE [address] [place] [phone] Lu Estrada MD [address] [place] [address] 05/22/2024 2:30 PM EST Medication Management [facility] MEDICINE [address] [place] [address] Praful Weiner, PharmD [address] [place] [address] 06/18/2024 9:45 AM EDT Office Visit [facility] OPTOMETRY [address] [place] [address] Aziza Mckoy, OD [address] [place] [address] 09/11/2024 10:00 AM EDT Office Visit [facility] ADULT DENTAL [address] [place] [address] Mc Ennisaris [address] [place] [address] documented as of this encounter Visit Diagnoses Not on filedocumented in this encounter Additional Health Concerns Assessment Noted Time PHQ-9 Depression Total Score: 0 03/08/20 23 11:18 AM EST documented as of this encounter Care Teams Lug Loader Relationship Specialty Start Date End Date Lu Estrada MD [address] [place] [address] PCP - General Family Medicine 03/27/18 documented as of this encounter
--- OUTSIDE RECORDS SUMMARY | 2024-05-08 21:27 | XMS_ITS | Encounter Summary ---
Author Organization [employer] Address [address] [place] [address] 7t [place] [address] Care Team Providers Care Public Health Inspector Name Role Phone Lu Estrada MD Primary Care Provider [phone] Reason for Visit * Reason Comments Med Refill Encounter Details Date Type Department Care Team ([facility] Contact Info) Description 04/22/2022 Refill [facility] CHC MED & PEDS [address] [place], [place] [phone] Vandana Black ANP [address] [place], [place] [phone] Social History Tobacco Use Types Packs/Day Years [...] Upcoming Encounters Date Type Department Care Team ([facility] Contact Info) Description 05/21/2024 3:15 PM EST Office Visit [facility] MEDICINE [address] [place] [address] Lu Estrada MD [address] [place] [address] 05/22/2024 2:30 PM EST Medication Management [facility] MEDICINE [address] [place] [address] Praful Weiner, PharmD [address] [place] [address] 06/18/2024 9:45 AM EDT Office Visit [facility] OPTOMETRY [address] [place] [address] Aziza Mckoy, OD [address] [place] [address] 09/11/2024 10:00 AM EDT Office Visit [facility] ADULT DENTAL [address] [place] [address] Raymon Heidi [address] [place] [address] documented as of this encounter Visit Diagnoses Not on filedocumented in this encounter Care Teams Public Health Inspector Relationship Specialty Start Date End Date Lu Estrada MD [address] [place] [address] PCP - General Family Medicine 03/27/18 documented as of this encounter
--- OUTSIDE RECORDS SUMMARY | 2024-05-08 21:27 | XMS_ITS | Encounter Summary ---
Author Organization [employer] Address 75 [facility] 7t [place] [address] Care Team Providers Care Rate Marker Name Role Phone Lu Estrada MD Primary Care Provider [phone] Reason for Visit * Reason Comments Med Refill Encounter Details Date Type Department Care Team (Late st Contact Info) Description 06/18/2022 Refill [facility] CHC MED & PEDS [address] [place] [address] Vandana Black, ANP 230 [place] [address] Social History Tobacco Use Types Packs/Day Years [...] Description 05/21/2024 3:15 PM EST Office Visit [facility] MEDICINE [address] [place] [address] Lu Estrada MD [address] [place] [address] 05/22/2024 2:30 PM EST Medication Management [facility] MEDICINE [address] [place] [address] Praful Weiner, PharmD 230 [place] [address] 06/18/2024 9:45 AM EDT Office Visit [facility] OPTOMETRY [address] [place] [address] Tarka, Aziza, OD [address] [place] [address] 09/11/2024 10:00 AM EDT Office Visit [facility] ADULT DENTAL [address] [place] [address] Raymon, Heidi [address] [place] [address] documented as of this encounter Visit Diagnoses Not on filedocumented in this encounter Care Teams Rate Marker Relationship Specialty Start Date End Date Lu Estrada MD 230 [place] [address] PCP - General Family Medicine 03/27/18 documented as of this encounter
--- OUTSIDE RECORDS SUMMARY | 2024-05-08 21:27 | XMS_ITS | Encounter Summary ---
Author Organization [employer] Address 75 [facility] 7t [place] [address] Care Team Providers Care Transportation Operations Manager Name Role Phone Lu Estrada MD Primary Care Provider [phone] Reason for Visit * Reason Comments Med Refill Encounter Details Date Type Department Care Team ([facility] st Contact Info) Description 03/09/2023 Refill [facility] MEDICINE [address] [place] [address] Lu Estrada MD 230 [place], [place] [phone] Social History Tobacco Use Types Packs/Day Years [...] Description 05/21/2024 3:15 PM EST Office Visit [facility] MEDICINE [address] [place] [address] Lu Estrada MD 230 [place] [address] 05/22/2024 2:30 PM EST Medication Management [facility] MEDICINE [address] [place] [address] Praful Weiner, PharmD 230 [place] [address] 06/18/2024 9:45 AM EDT Office Visit [facility] OPTOMETRY [address] [place] [address] TarAziza crawford, OD [address] [place] [address] 09/11/2024 10:00 AM EDT Office Visit [facility] ADULT DENTAL [address] [place] [address] Raymon Heiid [address] [place] [address] documented as of this encounter Visit Diagnoses Not on filedocumented in this encounter Additional Health Concerns Assessment Noted Time PHQ-9 Depression Total Score: 0 03/08/20 23 11:18 AM EST documented as of this encounter Care Teams Transportation Operations Manager Relationship Specialty Start Date End Date Lu Estrada MD [address] [place] [address] PCP - General Family Medicine 03/27/18 documented as of this encounter
--- OUTSIDE RECORDS SUMMARY | 2024-05-08 21:27 | XMS_ITS | Encounter Summary ---
Author Organization [employer] Address 75 [facility] 7t [place] [address] Care Team Providers Care Tobacco Dipper Name Role Phone Lu Estrada MD Primary Care Provider [phone] Encounter Details Date Type Department [facility] Description 10/17/2022 Abstract [facility] ADULT DENTAL [address] [place] [address] Raymon, Heidi [address] [place] [address] Social History Tobacco Use Types Packs/Day Years [...] Upcoming Encounters Date Type Department [facility] Description 05/21/2024 3:15 PM EST Office Visit [facility] MEDICINE [address] [place] [address] Lu Estrada MD [address] [place] [address] 05/22/2024 2:30 PM EST Medication Management [facility] MEDICINE [address] [place] [address] Praful Weiner, PharmD [address] [place] [address] 06/18/2024 9:45 AM EDT Office Visit [facility] OPTOMETRY [address] [place] [address] TarAziza crawford, OD [address] [place] [address] 09/11/2024 10:00 AM EDT Office Visit [facility] ADULT DENTAL [address] [place] [address] Heidi Ennis [address] [place] [address] documented as of this encounter Visit Diagnoses Not on filedocumented in this encounter Care Teams Tobacco Dipper Relationship Specialty Start Date End Date Lu Estrada MD [address] [place] [address] PCP - General Family Medicine 03/27/18 documented as of this encounter
--- OUTSIDE RECORDS SUMMARY | 2024-05-08 21:27 | XMS_ITS | Encounter Summary ---
Author Organization [employer] Address 75 [facility] 7t [place] [address] Care Team Providers Care Forest Products Teacher Name Role Phone Lu Estrada MD Primary Care Provider Reason for Visit * Reason Comments Med Refill Encounter Details Date Type Department Care Team ([facility] st Contact Info) Description 05/01/2023 Refill [facility] MEDICINE [address] [place], [place] [phone] Lorri Eduardo DO 230 [place], [place] [phone] Social History Tobacco Use Types Packs/Day Years [...] Description 05/21/2024 3:15 PM EST Office Visit [facility] MEDICINE [address] [place] [address] Lu Esrtada MD [address] [place] [address] 05/22/2024 2:30 PM EST Medication Management [facility] MEDICINE [address] [place] [address] Praful Weiner, PharmD [address] [place] [address] 06/18/2024 9:45 AM EDT Office Visit [facility] OPTOMETRY [address] [place] [address] Aziza Mckoy, OD [address] [place] [address] 09/11/2024 10:00 AM EDT Office Visit [facility] ADULT DENTAL [address] [place] [address] Mc Ennisaris 230 [place] [address] documented as of this encounter Visit Diagnoses Not on filedocumented in this encounter Additional Health Concerns Assessment Noted Time PHQ-9 Depression Total Score: 0 03/08/20 23 11:18 AM EST documented as of this encounter Care Teams Forest Products Teacher Relationship Specialty Start Date End Date Lu Estrada MD [address] [place] [address] PCP - General Family Medicine 03/27/18 documented as of this encounter
--- OUTSIDE RECORDS SUMMARY | 2024-05-08 21:27 | XMS_ITS | Encounter Summary ---
Author Organization [employer] Address [address] [place] [address] 7 [place] [address] Care Team Providers Care Corporate Job Titles Name Role Phone Lu Estrada MD Primary Care Provider [phone] Reason for Visit * Reason Comments Med Refill Encounter Details Date Type Department Care Team (Late st Contact Info) Description 06/08/2022 Refill [facility] MEDICINE [address] [place] [phone] NameDanny MD [address] [place] [address] [phone] Social History Tobacco Use Types Packs/Day Years [...] Description 05/21/2024 3:15 PM EST Office Visit [facility] MEDICINE [address] [place] [address] Lu Estrada MD [address] [place] [phone] 05/22/2024 2:30 PM EST Medication Management [facility] MEDICINE [address] [place] [address] Praful Weiner, PharmD [address] [place] [address] 06/18/2024 9:45 AM EDT Office Visit [facility] OPTOMETRY [address] [place] [address] Aziza Mckoy, OD [address] [place] [address] 09/11/2024 10:00 AM EDT Office Visit [facility] ADULT DENTAL [address] [place] [address] Heidi Ennis [address] [place] [address] documented as of this encounter Visit Diagnoses Not on filedocumented in this encounter Care Teams Corporate Job Titles Relationship Specialty Start Date End Date Lu Estrada MD [address] [place] [phone] PCP - General Family Medicine 03/27/18 documented as of this encounter
--- OUTSIDE RECORDS SUMMARY | 2024-05-08 21:27 | XMS_ITS | Encounter Summary ---
Author Organization [employer] Address [address] [facility] [address] 7t [place] [address] Care Team Providers Care Application Development Liaison Name Role Phone Lu Estrada MD Primary Care Provider [phone] Reason for Visit * Reason Onset Date Comments Results 05/01/2024 Appointment Request 05/01/2024 Encounter Details Date Type Department Care Team ([facility] Contact Info) Description 05/01/2024 Telephone [facility] MEDICINE [address] [place] [address] Ericka Edwards RN Results; Appointment Request Social History Tobacco Use Types [...] encounter Miscellaneous Notes * Telephone Encounter - Ericka Edwards RN - 05/01/2024 10:14 AM EST Telephone call to pt who reports feeling okay and expressed questions about incidental finding of right breast density on CT scan. Explained to pt that diagnostic mammogram ordered by Dr Burnett and to expect call from [facility] to schedule this in the next 10 days, also gave her the phone number for [facility] Centralized Scheduling to call to schedule. Scheduled pt per pt request for ED follow up (unable touse sick on sites) with PCP, [facility]. Reviewed with pt Walk in Clinic hours/extended clinic, [facility] senior information security engineer nurse, pt verbalized understanding and to call clinic PRN. * Telephone Encounter - Ericka Edwards RN - 05/01/2024 9:52 AM EST ----- Message from Lu Estrada MD sent at 04/30/2024 8:42 AM EST ----- Seen by me yesterday, then went to ED for abdominal pain. CT abdomen showed no etiology for pain. It showed an incidental finding of right breast density. Dx mammo is ordered. Please inform patient later today or tomorrow (discharged this morning). Please schedule ED follow up since patient has multiple ED visits and imaging studies. Thank you documented in this encounter Plan of Treatment Upcoming Encounters Date Type Department Care Team (Late st Contact Info) Description 05/21/2024 3:15 PM EST Office Visit [facility] MEDICINE [address] [place] [address] Lu Estrada MD [address] [place] [address] 05/22/2024 2:30 PM EST Medication Management [facility] MEDICINE [address] [place] [address] Praful Weiner, PharmD [address] [place] [address] 06/18/2024 9:45 AM EDT Office Visit [facility] OPTOMETRY [address] [place] [address] TarAziza crawford, OD [address] [place] [address] 09/11/2024 10:00 AM EDT Office Visit [facility] ADULT DENTAL [address] [place] [address] Raymon, Heidi [address] [place] [address] documented as of this encounter Visit Diagnoses Not on filedocumented in this encounter Additional Health Concerns Assessment Noted Time PHQ-9 Depression Total Score: 5 01/22/20 24 3:06 PM EDT documented as of this encounter Care Teams Application Development Liaison Relationship Specialty Start Date End Date Lu Estrada MD [address] [place] [address] PCP - General Family Medicine 03/27/18 documented as of this encounter
--- OUTSIDE RECORDS SUMMARY | 2024-05-08 21:27 | XMS_ITS | Clinical Summary ---
Author Organization [facility] Address [address] [place] [address] Care Team Providers Care Supervisor [employer] Name Role Phone Lu Estrada MD Primary Care Provider [phone] Allergies No known active allergies Medications hydrocortisone [...] Diagnosed Date Left sided abdominal pain 04/29/2024 Assessment & Plan (04/30/2024 6:44 AM EST): - UA negative - most recent CT scan in Feb 2024 was unremarkable - since her [facility] surgery; advised to contact her surgeon or [facility] Atypical chest pain 07/13/2022 Enlarged tonsils 07/13/2022 [...] Plan (04/25/2022 4:36 PM EST): -followed by [facility] continue famotidine -continue pantoprazole -avoid NSAIDS IBS (irritable bowel syndrome) 04/21/2022 Assessment & Plan (01/28/2024 4:45 PM EST): - followed by [facility] last seen in May 2023 - s/p EGD and colonoscopy -GI prescribed dicyclomine, simethicone, and Creon, but she is not taking it; recommended to discuss with GI specialist before discontinuing it -work on stress reduction Assessment & Plan (05/05/2023 6:42 AM EST): - followed by [facility] last seen in Nov 2022 - [...] (04/29/2022 6:27 PM EST): - followed by [facility] last seen on 03/24/22 -continue dicyclomine [...] stay active Hypertension 03/02/2022 Assessment & Plan (04/30/2024 6:43 AM EST): -Goal BP < 140/90 per JNC-8 and < 130/85 per ACC/AHA guideline (Treatment threshold >= 140/90) -Treatment Hx: Pt reported side effect to amlodipine and perceived that metoprolol was ineffective - 06/21/22 TTE normal, stress normal, Holter normal. -Continue working on lifestyle modifications -Continue improving medication adherence -Increase lisinopril 30 mg daily -Treatment Hx: Previously prescribed amlodipine. Poor health literacy and adherence. Discontinued since she was not taking it -Follow up in 3-6 mo, sooner if any problem arises Assessment & Plan (04/14/2024 2:27 PM EST): [...] 4:48 PM EST): - previously seen by [facility] Clinician. - patient is not interested in behavioral health service -Pt was recommended to improve sleepy hygien and exercise during the day instead of taking medications Assessment & Plan (04/25/2022 4:35 PM EST): Was seen by [facility] Clinician. -Will check status of f/u. -Pt was recommended to improve sleepy hygien and exercise during the day instead of taking medications Dislocation of acromioclavicular joint 7 Migraine 05/04/2016 Assessment & Plan (04/28/2024 4:12 PM EST): -seen by [facility] neurologist in Apr 2019 -seen by [facility] neurology in Dec 2022 -04/23/22 Head [...] Plan (01/28/2024 4:50 PM EST): -seen by [facility] neurologist in Apr 2019 -seen by [facility] neurology in Dec 2022 -04/23/22 Head [...] Plan (05/05/2023 6:51 AM EST): -seen by [facility] neurologist in Apr 2019 -seen by [facility] neurology in Dec 2022 -04/23/22 Head [...] PM EST): -last exacerbation requiring prednisone in 2017 -continue Advair as maintenance -continue albuterol -continue Singulair Knee pain 12/12/2012 Resolved Problems Problem Noted Date Diagnosed Date Resolved Date Bleeding gums 03/02/2022 04/29/2022 Encounters Date Type Department Care Team Description 05/01/2024 Telephone [facility] [address] [place] [phone] Ericka Edwards RN Results; Appointment Request 04/30/2024 Patient Outreach [address] [address] Lu Estrada MD Transition Of Care (Tcm) 04/30/2024 Orders Only [address] [address] Lu Estrada MD Abnormal CT of the abdomen (Primary Dx); Breast density 04/30/2024 Orders Only GENERIC EXTERNAL DATA DEPARTMENT Provider, Generic External Data 04/29/2024 10:15 AM EST Office Visit [facility] [address] [place] [address] Lu Estrada MD Primary hypertension (Primary Dx); Moderate persistent asthma without complication; Fibromyalgia; Chronic migraine without aura without status migrainosus, not intractable; Left sided abdominal pain; Chronic pain of left knee 04/29/2024 Travel 04/24/2024 Telephone [facility] [address] [place] [address], [place] [address] Jordyn Brewster, SONNY chart prep 03/28/[address] [address] Miriam Garcia, RN NTTS 03/28/[address] [address] Lu Etsrada MD 03/28/2024 Orders Only [facility] [address] [place] [address] Elliot Antunez MD 03/25/2024 7:00 PM EST Office Visit [facility] [address] [place] [address] Elliot Antunez MD Hypokalemia (Primary Dx); Sweating profusely; Fibromyalgia 03/25/2024 Travel 03/25/[address] [address] Lu Estrada MD Nurse Triage 03/15/[address] [address] Lu Estrada MD No Show 03/15/[address] [address] Lu Estrada MD 03/11/2024 2:30 PM EST Office Visit [facility] [address] [place] [address] Heidi Ennis Dental calculus (Primary Dx) 03/11/2024 Telephone [facility] [address] [place] [address], [place] [address] Raymon, Heidi 03/08/2024 2:30 PM EST Office Visit [address] [address] Marc Márquez MD Inflamed skin tag (Primary Dx) 03/08/2024 Travel 03/06/2024 7:00 PM EST Office Visit [facility] [address] [place] [address] Ameya Fuller MD Muscle pain (Primary Dx); Primary hypertension 03/05/2024 Telephone [facility] [address] [place] [address] Lu Estrada MD Nurse Triage 03/04/2024 Orders Only GENERIC EXTERNAL DATA DEPARTMENT Provider, Generic External Data 02/18/2024 Orders Only GENERIC EXTERNAL DATA DEPARTMENT Provider, Generic External Data 02/14/2024 Telephone [facility] [address] [place] [address] Lu Estrada MD from Last 3 Months [...] Description 05/21/2024 3:15 PM EST Office Visit [facility] [address] [place] [address] Lu Estrada MD [address] [place] [address] 05/22/2024 2:30 PM EST Medication Management [facility] [address] [place] [address] Praful Weiner, PharmD [address] [place] [address] 06/18/2024 9:45 AM EDT Office Visit [facility] [address] [place] [address] TarAziza crawford, OD [address] [place] [address] 09/11/2024 10:00 AM EDT Office Visit [facility] [address] [place] [address] Heidi Ennis [address] [place] [address] Health Maintenance Due Date Last Done Comments [...] Cervical Cancer Screening 12/04/2028 HPV/Cotest 12/04/2028 12/05/2023, 09/25, 10/20/2021 Lipid Panel 01/21/2029 01/22/2024, 03/29, 09/22/2021 [...] Procedure Name Priority Date/Time Associated Diagnosis Comments CT ABDOMEN PELVIS W CONTRAST Routine 04/30/2024 5:22 AM EST HCG, TOTAL, QN Routine 04/30/2024 [...] PANEL Routine 03/11/2024 3:21 PM EST Hypokalemia CASE PRESENTATION, DETAILED AND EXTENSIVE TREATMENT PLANNING Routine 03/11/2024 [...] ESTABLISHED PATIENT Routine 09/08/2023 2:00 PM EDT INTRAORAL - COMPLETE SERIES OF RADIOGRAPHIC IMAGES Routine 03/02/2022 9:00 AM EST ZZZ HISTORICAL HEPATITIS C AB W/REFL TO HCV RNA, QN, PCR Routine 03/16/2020 4:32 PM EST HIV 1/2 ANTIGEN/ANTIBODY, FOURTH GENERATION W/RFL Routine 03/16/2020 4:32 PM EST from Last 3 Months or Most Recently Relevant to Health Maintenance Results * CT Abdomen Pelvis w/ Contrast (04/30/2024 5:22 AM EST) Only the most recent of2 resultswithin the time period is included. Anatomical Region Laterality Modality Body, Pelvis, Abdomen Computed T omography 04/30/2024 5:22 AM EST Narrative 04/30/2024 5:24 AM EST ? [facility] ?[address] ?[place] [address] ? CT Scan Report ? Signed with Addenda ? Patient: Mckeon Ramsey,Shruti ?MR#: MM ?? [id number] ? : 1985 ?Acct:[id number] ? Age/Sex: 38 / F ?ADM Date: 04/30/24 ? Loc: HO.ED ? Attending Dr: ? Ordering Physician: Jennifer Santillan MD ?? Date of Service: 04/30/24 ?? Procedure(s): CT abdomen pelvis w IV con ?? Accession Number(s): [id number] ? cc: Jennifer Santillan MD; Lu Estrada MD ? Report Number: ?? [id number]: Total DLP = ??746.00 mGy-cm ?ADDENDUM ?? This document has been electronically signed by: Monie Jenkins MD on ?? 04/30/2024 05:22:49 ? ADDENDUM: ?? Receipt of this report by the clinical staff was confirmed with correctional lieutenant, ?? David Rayo on Apr 30, 2024 05:25:00 EST. ? This document has been electronically signed by: Krishna Hinojosa on ?? 04/30/2024 05:26:07 ? Addendum Dictated By: ?Monie Jenkins MD ? Addendum Signed By: ? <Electronically signed by Monie Jenkins MD in OV> ?04/30/24526 ?? Addendum Cosigned By: ? DD/ /19/521 ? TD/TT: 04/30/2407/19/525 ? CLINICAL HISTORY: L. abd flank pain x 1 week ? CT abdomen and pelvis with contrast ? Comparison: CT/SR - CT ABDOMEN PELVIS W IV CON - 03/04/24 22:31 EST ?? CT/AZ/SR - CT ABDOMEN PELVIS WO IV CON - 09/13/23 15:59 EDT ?? CT/REG/SR - CT ABDOMEN PELVIS WO IV CON - 06/11/22 22:55 EDT ? Findings: ?? 19 mm mass versus focal fibroglandular tissue within the outer aspect of ?? the right breast. This area was not imaged on the patient's prior exams. ?? Lung bases are clear. ? The gallbladder and solid organs are within normal limits. No renal ?? stones. ?? No bowel obstruction, pneumoperitoneum, or pneumatosis. ? Pelvic contents unremarkable. Normal appendix. ?? No fluid collections or adenopathy. Nonaneurysmal aorta. ?? No acute fracture. ? IMPRESSION: ?? No findings to explain left-sided flank or abdominal pain. ?? Asymmetric area of density within the outer aspect of the right breast ?? that could be focal dense breast tissue or a mass measuring 19 mm. ?? Diagnostic mammogram recommended. ? This document has been electronically signed by: Monie Jenkins MD on ?? 04/30/2024 05:22:49 ? Dictated By: ?Monie Jenkins MD ? Signed By: ?<Electronically signed by Monie Jenkins MD in OV> ?04/30/24522 ? DD/ 1 ? TD/TT: 04/30/24521 ? Vacuum Metalizer Operator: ? Procedure Note Amarjit, Tanmay - 04/30/[address] [address] [address] Scan Report Signed with Anjana Patient: Ajay Winters#: [id number] : 1985Acct:[id number] Age/Sex: 38 / FADM Date: 04/30/24 Loc: HO.ED Attending Dr: Ordering Physician: Jennifer Santillan MD Date of Service: 04/30/24 Procedure(s): CT abdomen pelvis w IV con Accession Number(s): [id number] cc: Jennifer Santillan MD; Lu Estrada MD Report Number: [id number]: Total DLP = 746.00 mGy-cm ADDENDUM This document has been electronically signed by: Monie Jenkins MD on 04/30/2024 05:22:49 ADDENDUM: Receipt of this report by the clinical staff was confirmed with correctional lieutenantDavid Go on Apr 30, 2024 05:25:00 EST. This document has been electronically signed by: Krishna Hinojosa on 04/30/2024 05:26:07 Addendum Dictated By: Monie Jenkins MD Addendum Signed By: <Electronically signed by Monie Jenkins MD in OV> 04/30/24526 Addendum Cosigned By: DD/ /19/521 TD/TT: 04/30/2407/19/525 CLINICAL HISTORY: L. abd flank pain x [address] abdomen and pelvis with contrast Comparison: CT/SR - CT ABDOMEN PELVIS W IV CON - 03/04/24 22:[address]/AZ/SR - CT ABDOMEN PELVIS WO IV CON - 09/13/23 15:[address]/REG/SR - CT ABDOMEN PELVIS WO IV CON - 06/11/22 22:55 EDT Findings: 19 mm mass versus focal fibroglandular tissue within the outer aspect of the right breast. This area was not imaged on the patient's prior exams. Lung bases are clear. The gallbladder and solid organs are within normal limits. No renal stones. No bowel obstruction, pneumoperitoneum, or pneumatosis. Pelvic contents unremarkable. Normal appendix. No fluid collections or adenopathy. Nonaneurysmal aorta. No acute fracture. IMPRESSION: No findings to explain left-sided flank or abdominal pain. Asymmetric area of density within the outer aspect of the right breast that could be focal dense breast tissue or a mass measuring 19 mm. Diagnostic mammogram recommended. This document has been electronically signed by: Monie Jenkins MD on 04/30/2024 05:22:49 Dictated By: Monie Jenkins MD Signed By: <Electronically signed by Monie Jenkins MD in OV> 04/30/24522 DD/ 1 TD/TT: 04/30/24521 Vacuum Metalizer Operator: [facility] External Provider IMG CT PROCEDURES Edited Result - Final * Urinalysis, Complete, with Reflex to Culture (04/30/2024 1:09 AM EST) Only the most recent of2 resultswithin the time period is included. Color Urine Yellow [facility] Appearance Urine Clear [facility] PH 5.5 5.0 - 9.0 [facility] Glucose Urine UA Negative Negative mg/dL [facility] Urine Blood Negative Negative [facility] Specific [place] - Urine 1.025 1.005 - 1.025 [facility] Urine Protein Negative Neg-Trace mg/dL [facility] Urine Ketones Negative Negative mg/dL [facility] Nitrite Urine Negative Negative [facility] Leukocyte Esterase Urine Negative Negative [facility] RBC Urine 0-2 0 - 2 /HPF [facility] Urine WBC 0-5 0 - 5 /HPF [facility] Urine Squamous Epithelial Cell 3-5 0 - 2 /HPF [facility] Urine Bacteria Trace None Seen [facility] Hyaline Casts, Urine 0-2 0 - 2 /LPF [facility] 04/30/2024 1:09 AM EST 04/30/2024 1:13 AM EST Narrative [facility] - 04/30/2024 1:21 AM EST [id number], Clean Catch us Generic External Data Provider LAB URINE ORDERAB LES Final Result [facility] [address] [place] [phone] * (ABNORMAL) CBC auto differential (04/30/2024 1:09 AM EST) Only the most recent of4 resultswithin the time period is included. [facility] White Blood Count 7.6 4.8 - 10.8 X10*3/uL [facility] Red Blood Count 4.02(L) 4.20 - 5.50 X10*6/uL [facility] Hemoglobin 11.6(L) 12.0 - 16.0 g/dl [facility] Hematocrit 35.4(L) 37.0 - 47.0 % [facility] Mean Corpuscular Volume 88.1 80.0 - 98.0 fL [facility] Mean Corpuscular Hemoglobin 28.9 27.0 - 33.0 pg [facility] Mean Corpuscular HGB Conc 32.8 31.0 - 35.0 g/dl [facility] Red Cell Distribution Width 14.2 11.0 - 16.0 % [facility] Platelet Count 255 160 - 400 X10*3/uL [facility] Mean Platelet Volume 9.7 9.4 - 12.3 fL [facility] Neutrophils Percent Auto 39.1(L) 45 - 73 % [facility] Imm Gran Pct Auto 0.3 0.0 - 0.4 % [facility] Lymphocytes Percent Auto 53.0(H) 20 - 40 % [facility] Monocytes Percent Auto 5.9 2 - 11 % [facility] Eosinophils Percent Auto 1.3 0 - 4 % [facility] Basophils Percent Auto 0.4 0 - 2 % [facility] NRBC Pct Auto 0.0 0.0 - 0.2 /100WBC [facility] Neutrophils Absolute Auto 3.0 2.0 - 8.3 x10*3/uL [facility] Imm Gran Abs Auto 0.02 0.00 - 0.03 X10*3/uL [facility] Lymphocytes Absolute Auto 4.0 1.2 - 4.9 X10*3/uL [facility] Monocytes Absolute Auto 0.5 0.1 - 1.2 X10*3/uL [facility] Eosinophils Absolute Auto 0.1 0.0 - 0.4 X10*3/uL [facility] Basophils Absolute Auto 0.0 0.0 - 0.2 X10*3/uL [facility] NRBC Abs Auto 0.000 0.0 - 0.012 X10*3/uL [facility] 04/30/2024 1:09 AM EST 04/30/2024 1:13 AM EST Generic External Data Provider LAB BLOOD ORDERAB LES Final Result Performing Organization Address City/[facility]/ZIP Co de Phone Number [facility] [address] [place] [phone] * hCG, Total, Quantitative (04/30/2024 1:09 AM EST) HCG Quantitative <2 mIU/mL [facility] Comment:Weeks post LMP Appro ximate hCG(Last Menstrual Period) Range (mIU/ml)3 - 4 weeks 9 - 1304 - 5 weeks 75 - 2,6005 - 6 weeks 850 - 20,8006 - 7 weeks 4000 - 100,2007 - 12 weeks 11,500 - 289,71876 - 16 weeks 18,300 - 137,67882 - 29 weeks (2nd trimester) 1,400 - 53,35177 - 41 weeks (3rd trimester) 940 - 60,000The Chavez B-hCG assay is used for the early detection ofpregnancy; it cannot be used to diagnose any conditionunrelated to . If a B-hCG level is not supportedby the clinical evidence, results should be confirmed by analternative method (qualitative urine hCG, for example). 04/30/2024 1:09 AM EST 04/30/2024 1:13 AM EST Generic External Data Provider LAB BLOOD ORDERAB LES Final Result Performing Organization Address [facility] Co de Phone Number [facility] [address] [place] [phone] * (ABNORMAL) Lipase (04/30/2024 1:09 AM EST) Lipase 86(H) 8 - 78 U/L [facility] 04/30/2024 1:09 AM EST 04/30/2024 1:13 AM EST us Generic External Data Provider LAB BLOOD ORDERAB LES Final Result [facility] [address] [place] [phone] * Comprehensive Metabolic Panel (04/30/2024 1:09 AM EST) Only the most recent of3 resultswithin the time period is included. Sodium 140 135 - 145 mmol/L [facility] Potassium 4.1 3.3 - 5.1 mmol/L [facility] Chloride 108 96 - 108 mmol/L [facility] Carbon Dioxide 24 22 - 29 mmol/L [facility] Anion Gap 12 12 - 20 [facility] Urea Nitrogen (BUN) 11 9 - 16 mg/dL [facility] Creatinine, Serum 0.88 0.5 - 1.4 mg/dL [facility] Creatinine Clr Calc Pharmacy 101.5 [facility] Comment:Provided height and weight: 167.64 cm,92.986 kg.eGFR (calculated from the MDRD study equation) and eCrCl(calculated from the Cockcroft-Gault equation) are based ondifferent parameters and may not yield comparable results.If eCrCl result is absurd, please check patient'sheight/weight. Estimated Glomerular Filt Rate >60 [facility] Comment:Chronic Kidney Disea se: Estimated GFR < 60 mL/min/1.54o7Rrmzig Kidney Disease: Estimated GFR < 15 mL/min/1.73m2 Glucose 95 60 - 115 mg/dL [facility] Calcium 8.9 8.4 - 10.2 mg/dL [facility] Bilirubin, Total 0.3 0.0 - 1.0 mg/dL [facility] Aspartate Amino Transferase 16 5 - 31 U/L [facility] Alanine Aminotransferase 8 0 - 31 U/L [facility] Total Protein 7.2 6.5 - 8.0 g/dL [facility] Albumin Level 3.9 3.5 - 5.0 g/dL [facility] Alkaline Phosphatase 50 39 - 117 U/L [facility] 04/30/2024 1:09 AM EST 04/30/2024 1:13 AM EST Generic External Data Provider LAB BLOOD ORDERAB LES Final Result [facility] [address] [place] [phone] * POCT urinalysis dipstick manually resulted [...] EST) Sodium 140 135 - 145 mmol/L [facility] Potassium 3.9 3.3 - 5.1 mmol/L [facility] Chloride 111(H) 96 - 108 mmol/L [facility] Carbon Dioxide 22 22 - 29 mmol/L [facility] Anion Gap 11(L) 12 - 20 [facility] Urea Nitrogen (BUN) 16 9 - 16 mg/dL [facility] Creatinine, Serum 0.82 0.5 - 1.4 mg/dL [facility] Estimated Glomerular Filt Rate >60 [facility] Comment:Chronic Kidney Disea se: Estimated GFR < 60 mL/min/1.53d7Twfsvb Kidney Disease: Estimated GFR < 15 mL/min/1.73m2 Glucose Fasting 90 60 - 99 mg/dL [facility] Calcium 9.1 8.4 - 10.2 mg/dL [facility] Blood Venous blood specimen / Unknown 03/26/2024 11:09 AM EST 03/26/2024 1:25 PM EST us Elliot Antunez MD LAB BLOOD ORDERABLES Final Result Performing Organization Address City/[facility]/ZIP Co de Phone Number [facility] [address] [place] [phone] * Vitamin B12/Folate, Serum Panel (03/26/2024 11:09 AM EST) Vitamin B12 326 200 - 900 pg/mL [facility] Comment:NORMAL 200-900 PG/ML INDETERMINATE 160-199 PG/ML DEFICIENT < 160 PG/ML Folate 7.1 > or = 4.0 ng/mL [facility] Comment:Reference Values:> o r = [...] BLOOD ORDERABLES Final Result Performing Organization Address [facility]/ZIP Co de Phone Number [facility] [address] [place] [phone] * TSH W/Reflex to FT4 (03/26/2024 11:09 AM EST) TSH reflex Free T4 1.53 0.32 - 4.0 uIU/mL [facility] Blood Venous blood specimen / Unknown 03/26/2024 11:09 AM EST 03/26/2024 1:25 PM EST Elliot Antunez MD LAB BLOOD ORDERABLES Final Result Performing Organization Address City/[facility]/ZIP Co de Phone Number [facility] [address] [place] [phone] * Magnesium (03/26/2024 11:09 AM EST) Pathologist [facility] Magnesium 2.4 1.6 - 2.6 mg/dL [facility] Blood Venous blood specimen / Unknown 03/26/2024 11:09 AM EST 03/26/2024 1:25 PM EST Elliot Antunez MD LAB BLOOD ORDERABLES Final Result Performing Organization Address [facility] Co la Phone Number [facility] [address] [place] [phone] * POCT Rapid Covid-19 BinaxNOW (03/25/2024 7:20 PM EST) Pathologist [facility] Rapid COVID Ag Negative Swab 03/25/2024 7:20 PM EST Elliot Antunez MD POINT OF CARE TEST ENTER/ED IT ORDERABLES Final Result * Basic Metabolic Panel (03/11/2024 3:21 PM EST) Pathologist [facility] Sodium 138 135 - 145 mmol/L [facility] Potassium 3.9 3.3 - 5.1 mmol/L [facility] Chloride 107 96 - 108 mmol/L [facility] Carbon Dioxide 22 22 - 29 mmol/L [facility] Anion Gap 13 12 - 20 [facility] Urea Nitrogen (BUN) 14 9 - 16 mg/dL [facility] Creatinine, Serum 0.89 0.5 - 1.4 mg/dL [facility] Estimated Glomerular Filt Rate >60 [facility] Comment:Chronic Kidney Disea se: Estimated GFR < 60 mL/min/1.46r1Sfhwgi Kidney Disease: Estimated GFR < 15 mL/min/1.73m2 Glucose 86 60 - 115 mg/dL [facility] Calcium 9.4 8.4 - 10.2 mg/dL [facility] Blood Venous blood specimen / Unknown 03/11/2024 3:21 PM EST 03/11/2024 4:23 PM EST us Lu Estrada MD LAB BLOOD ORDERABLES Final Resul t [facility] [address] [place] [phone] * CT Head w/o Contrast (03/04/2024 7:06 PM EST) Anatomical Region Laterality Modality Head, Neck Computed Tomogra phy 03/04/2024 7:06 PM EST Narrative 03/04/2024 8:11 PM EST ? [facility] ?[address] ?[place] [address] ? CT Scan Report ? Signed ? Patient: Mckeon Ramsey,Shruti ?MR#: MM ?? [id number] ? : 1985 ?Acct:[id number] ? Age/Sex: 38 / F ?ADM Date: 03/04/24 ? Loc: HO.ED ? Attending Dr: ? Ordering Physician: Rahul Weber ?? Date of Service: 03/04/24 ?? Procedure(s): CT head/brain wo IV con ?? Accession Number(s): [id number] ? cc: Rahul Weber; Lu Estrada MD [...] signed by Afshin Parra MD in OV> ?03/04/24 2008 ? DD/ 05 ? TD/TT: 03/04/241932 ? Vacuum Metalizer Operator: HB ? Procedure Note Tanmay Ocasio - 03/04/[address] [place] [address] [address] Scan Report Signed Patient: Ajay Winters#: MM [id number] : 1985Acct:[id number] Age/Sex: 38 / FADM Date: 03/04/24 Loc: HO.ED Attending Dr: Ordering Physician: Rahul Weber Date of Service: 03/04/24 Procedure(s): CT head/brain wo IV con Accession Number(s): [id number] cc: Rahul Weber; Lu Estrada MD EXAMINATION: [...] in OV> 03/04/242007 DD/ 05 TD/TT: 03/04/241932 Vacuum Metalizer Operator: R[place] [facility] External Provider IMG CT PROCEDURES Final Result * Strep A Nucleic Acid (03/04/2024 6:19 PM EST) IDNOW SERIAL# [id number] [facility] Strep A Nucleic Acid Negative Negative [facility] Comment:All test results mus t [...] LAB MICROBIOLOGY - GENERAL ORDERABLES Final Result [facility] [address] [place] [address] [phone] * High Sensitivity Troponin I (03/04/2024 6:19 PM EST) Pathologist [facility] TROPONIN I HIGH SENSITIVITY <2.7 <3.5 - 17.0 ng/L [facility] Comment:The Chavez high sens itivity Troponin-I results should beused in conjunction with other diagnostic information suchas ECG, clinical observations and information, and patientsymptoms to aid in the diagnosis of [place]. 03/04/2024 6:19 PM EST 03/04/2024 6:22 PM EST us Generic External Data Provider LAB BLOOD ORDERAB LES Final Result Performing Organization Address [facility] Co de Phone Number [facility] [address] [place] [address] [phone] * SARS-CoV-2 RNA, Influenza A/B, and RSV RNA, Ql NAAT (03/04/2024 6:19 PM EST) Only the most recent of2 resultswithin the time period is included. [facility] Influenza A PCR NEGATIVE Negative [facility] Influenza B PCR NEGATIVE Negative [facility] Resp Syncy Virus RNA Qual PCR NEGATIVE Negative [facility] SARS COV2 PCR NEGATIVE Negative [facility] Comment:All test results mus t be [...] use by authorized laboratories.Testing performed on the [employer] GeneXpert utilizingreal-time RT-PCR.All SARS CoV2 and positive influenza A/B results arereported to [facility]. 03/04/2024 6:19 PM EST 03/04/2024 6:22 PM EST Generic External Data Provider LAB MICROBIOLOGY - GENERAL ORDERABLES Final Result Performing Organization Address [facility] Co de Phone Number [facility] [address] [place] [phone] * Partial Thromboplastin Time, Activated (APTT) (03/04/2024 6:19 PM EST) Partial Thromboplastin Time 30.1 26.0 - 36.8 SEC [facility] Comment:For information rega rding the monitoring of direct thrombininhibitors, please refer to Pharmacy. 03/04/2024 6:19 PM EST 03/04/2024 6:22 PM EST Generic External Data Provider LAB BLOOD ORDERAB LES Final Result Performing Organization Address [facility] Co de Phone Number [facility] [address] [place] [phone] * Prothrombin Time-INR (03/04/2024 6:19 PM EST) Prothrombin Time 12.1 10.9 - 12.4 SEC [facility] INTERNATIONAL NORM RATIO 1.0 0.9 - 1.1 [facility] Comment:INTERNATIONAL NORMAL IZED RATIO (INR) [...] ORDERAB LES Final Result Performing Organization Address [facility]/ZIP Co de Phone Number [facility] [address] [place] [address] [phone] * HCG, Qualitative, Urine (02/18/2024 11:19 PM EST) Urine NEGATIVE NEGATIVE [facility] Comment:This test was develo ped to detect early . Falsenegative results may occur after the 5th - 7th week ofpregnancy when using this test method. If clinicallyindicated, consider a serum hCG. 02/18/2024 11:1 9 PM EST 02/18/2024 11:23 PM EST Generic External Data Provider LAB URINE ORDERAB LES Final Result Performing Organization Address [facility] Co de Phone Number [facility] [address] [place] [phone] * Culture, Urine, Routine (02/18/2024 12:00 AM EST) Urine Urine specimen from urinary conduit / Unknown 02/18/2024 02/18/2024 Comment:Urine Cath Narrative [facility] - 02/20/2024 7:28 AM EST Urine Culture No growth. Specimen Source: Urine Catheterized Generic External Data Provider LAB MICROBIOLOGY - GENERAL ORDERABLES Final Result Performing Organization Address [facility] Co de Phone Number [facility] [address] [place] [phone] * (ABNORMAL) Lipid Panel with Reflex to Direct LDL (01/22/2024 3:20 PM EDT) Triglycerides 88 <150 mg/dL [facility] Comment:Desirable Triglyceri de: less than 150 mg/dLBorderline High Triglyceride 150-199 mg/dLHigh Triglyceride: 200-499 mg/dLVery High Triglyceride: greater than or equal to 5OO mg/dL Cholesterol 183 <200 mg/dL [facility] Comment:Desirable Cholestero l: less than 200 mg/dLBorderline High Cholesterol: 200-239 mg/dLHigh Cholesterol: greater than 239 mg/dL LDL Cholesterol Calculated 126(H) <100 mg/dL [facility] Comment:Desirable LDL: less than 100 mg/dLNear Optimal/Above Optimal LDL: 110- 129 mg/dLBorderline High LDL: 130-159 mg/dLHigh LDL: 160-189 mg/dLVery High LDL: greater than or equal to 190 mg/dL HDL Cholesterol 40(L) >40 mg/dL [facility] Comment:Desirable HDL: great er than 40 mg/dL Note: This HDL assay may give artificially low results in patients with liver disease. Blood 01/22/2024 3:20 PM EDT 01/22/2024 4:05 PM EDT us Lu Estrada MD LAB BLOOD ORDERABLES Final Resul t [facility] [address] [place] [phone] * ThinPrep Imaging Pap and HPV mRNA E6/E7 with Reflex to HPV 16,18/45 (12/05/2023 12:00 AM EDT) HPV 16 RNA TNP [facility] HPV 18/45 RNA [facility] HPV nRNA E6/E7 Not Detected Not Detected [facility] Comment:Methodology: Transcr iption-Mediated AmplificationThis assay detects E6/E7 viral messenger RNA (mRNA) from 14high-risk HPV types (16,18,31,33,35,39,45,51,52,56,58,59,66,68).Cervical sources are required for HPV testing.If a vaginal source from a patient who has had atotal hysterectomy with removal of cervix wassubmitted, please contact the testing laboratoryfor alternative testing options.For additional information, please refer tohttp://education.userfox/faq/DZV449n9(This link if provided for information/educational purposes only.)THIS TEST WAS PERFORMED AT:[facility] [place] [phone] MILLS MD SOURCE: SEE NOTE [facility] Comment:None given Report Status: [facility] Clinical Information: SEE NOTE [facility] Comment:None given LMP: SEE NOTE [facility] Comment:NONE GIVEN Prev. PAP: SEE NOTE [facility] Comment:NONE GIVEN Prev. BX: SEE NOTE [facility] Comment:NONE GIVEN Statement Of Adequacy: SEE NOTE [facility] Comment:Satisfactory for tahmina luation.Endocervical/transformation zone componentpresent. General Categorization: [facility] Interpretation/Result: SEE NOTE [facility] Comment:Cytology Results: Ne gative for intraepitheliallesion or malignancy. Cytology Comment SEE NOTE [facility] Comment:This Pap test has be en evaluated with computerassisted technology. Hinging Machine Operator: SEE NOTE [facility] Comment:[place], CT(ASCP)CT scre ening location: [place] [address] Review Hinging Machine Operator: [facility] Pathologist [facility] PAP Infection [facility] See Note SEE NOTE [facility] Comment:EXPLANATORY NOTE:The Pap is a screening test for cervical cancer. It isnot a diagnostic test and is subject to false negativeand false positive results. It is most reliable when asatisfactory sample, regularly obtained, is submittedwith relevant clinical findings and history, and whenthe Pap result is evaluated along with historic andcurrent clinical information. 12/05/2023 12/05/2023 Narrative [facility] - 12/11/2023 1:12 PM EDT SEE SCANNED RESULTS IN EMR us Generic External Data Provider LAB PATHOLOGY ORD ERABLES Final Result [facility] [address] [place] [phone] * HEPATITIS C AB W/REFL TO HCV RNA, QN, PCR (03/16/2020 4:32 PM EST) HEPATITIS C ANTIBODY NON-REACT CORA NON-REACT CORA [facility] INDEX 0.02 <1.00 [facility] Comment: ?? HCV antibody was non-reactive. There is no laboratory ?? evidence of HCV infection. ?? In most cases, no further action is required. However, if recent HCV exposure is suspected, a test for HCV RNA (test code 91555) is suggested. ?? For additional information please refer to http://[employer].userfox/faq/RIG12a9 (This link is being provided for informational/ educational purposes only.) ?? 03/16/2020 4:32 PM EST Lu Estrada MD HISTORICAL/NON ORDERABLE LABS Fi nal Result Performing Organization Address [facility] de Phone Number [facility] [address] * HIV 1/2 ANTIGEN/ANTIBODY,FOURTH GENERATION W/RFL [...] ? For additional information please refer to http://KnoCo.userfox/faq/VDU036 (This link is being provided for informational/ educational purposes only.) ? The performance of this assay has not been clinically validated in patients less than 2 years old. ?? 03/16/2020 4:32 PM EST us Lu Estrada MD LAB BLOOD ORDERABLES Final Resul t Performing Organization Address [facility]/ZIP Co de Phone Number [facility] [address] [place], [place] [phone], from Last 3 Months or Most Recently Relevant to Health Maintenance Insurance [place] [facility] MEDICAID STAND ADULT Care Teams Supervisor [employer] Relationship Specialty Start Date End Date Lu Estrada MD [address] [place] [phone] PCP - General Family Medicine 03/27/18
--- OUTSIDE RECORDS SUMMARY | 2024-05-08 21:27 | XMS_ITS | Encounter Summary ---
Author Organization [employer] Address [address] [place] [address] Care Team Providers Care Agent Based Modeler Name Role Phone Lu Estrada MD Primary Care Provider [phone] Encounter Details Date Type Department Care Team ([facility] st Contact Info) Description 05/29/2023 Abstract [facility] [address] [place] [address] Lu Estrada MD [address] [place] [address] Social History Tobacco Use Types Packs/Day Years [...] 3:15 PM EST Office Visit [facility] MEDICINE [address] [place] [phone] Lu Estrada MD [address] [place] [phone] 05/22/2024 2:30 PM EST Medication Management [facility] [address] [place] [phone] Praful Weiner, PharmD [address] [place] [address] 06/18/2024 9:45 AM EDT Office Visit [facility] OPTOMETRY [address] [place] [address] Aziza Mckoy, OD [address] [place] [address] 09/11/2024 10:00 AM EDT Office Visit [facility] ADULT DENTAL [address] [place] [address] Heidi Ennis [address] [place] [address] documented as of this encounter Procedures Procedure Name Priority Date/Time Associated Diagnosis Comments COLONOSCOPY Routine 05/20/2023 documented in this encounter Results * Hm Colonoscopy (05/20/2023) Colonoscopy Normal Normal, Abnormal, BIRADS 0 , BIRADS 1 , BIRADS 2, BIRADS 3 , BIRADS 4+ us Historical Provider HEALTH MAINTENANCE Final Result documented in this encounter Visit Diagnoses Not on filedocumented in this encounter Additional Health Concerns Assessment Noted Time PHQ-9 Depression Total Score: 0 03/08/20 23 11:18 AM EST documented as of this encounter Care Teams Agent Based Modeler Relationship Specialty Start Date End Date Lu Estrada MD [address] [place] [address] PCP - General Family Medicine 03/27/18 documented as of this encounter
--- OUTSIDE RECORDS SUMMARY | 2024-05-08 21:27 | XMS_ITS | Encounter Summary ---
Author Organization [employer] Address [address] [place] [address] Care Team Providers Care Repairer General Name Role Phone Lu Estrada MD Primary Care Provider [phone] Encounter Details Date Type Department Care Team ([facility] st Contact Info) Description 04/30/2024 Orders Only [...] Description 05/21/2024 3:15 PM EST Office Visit [facility] MEDICINE [address] [place] [phone] Lu Estrada MD [address] [place] [address] 05/22/2024 2:30 PM EST Medication Management [facility] [address] [place] [phone] Praful Weiner, PharmD [address] [place] [address] 06/18/2024 9:45 AM EDT Office Visit [facility] OPTOMETRY [address] [place] [address] Aziza Mckoy, OD [address] [place] [address] 09/11/2024 10:00 AM EDT Office Visit [facility] ADULT DENTAL [address] [place] [address] Heidi Ennis [address] [place] [address] documented as of this encounter Procedures Procedure Name Priority Date/Time Associated Diagnosis Comments CT ABDOMEN PELVIS W CONTRAST Routine 04/30/2024 5:22 AM EST URINALYSIS, COMPLETE, WITH REFLEX TO CULTURE Routine 04/30/2024 1:09 AM EST CBC WITH AUTO DIFFERENTIAL Routine 04/30/2024 1:09 AM EST HCG, TOTAL, QN Routine 04/30/2024 1:09 AM EST LIPASE Routine 04/30/2024 1:09 AM EST COMPREHENSIVE METABOLIC PANEL Routine 04/30/2024 1:09 AM EST documented in this encounter Results * CT Abdomen Pelvis w/ Contrast (04/30/2024 5:22 AM EST) Anatomical Region Laterality Modality Body, Pelvis, Abdomen Computed T omography 04/30/2024 5:22 AM EST Narrative 04/30/2024 5:24 AM EST ? [facility] ?[address] ?[place] [address] ? CT Scan Report ? Signed with Addenda ? Patient: Mike Ramsey,Shruti ?MR#: [id number] ?? [id number] ? : 1985 ?Acct:[id number] ? Age/Sex: 38 / F ?ADM Date: 04/30/24 ? Loc: HO.ED ? Attending Dr: ? Ordering Physician: Jennifer Santillan MD ?? Date of Service: 04/30/24 ?? Procedure(s): CT abdomen pelvis w IV con ?? Accession Number(s): [id number] ? cc: Jenniefr Santillan MD; Lu Estrada MD ? Report Number: ?? [id number]: Total DLP = ??746.00 mGy-cm ?ADDENDUM ?? This document has been electronically signed by: Monie Jenkins MD on ?? 04/30/2024 05:22:49 ? ADDENDUM: ?? Receipt of this report by the clinical staff was confirmed with fire marshal refinery, ?? David Rayo on Apr 30, 2024 [...] IV CON - 03/04/24 22:31 EST ?? CT/IA/SR - CT ABDOMEN PELVIS WO IV CON [...] signed by Monie Jenkins MD in OV> ?04/30/24 05 ? DD/ 1 ? TD/TT: 04/30/24521 ? Classroom Paraprofessional: ? Procedure Note Amarjit, Tanmay - 04/30/[address] [address] [address] Scan Report Signed with Anjana Patient: Ajay Winters#: [id number] : 1985Acct:[id number] Age/Sex: 38 / FADM Date: 04/30/24 Loc: HO.ED Attending Dr: Ordering Physician: Jennifer Santillan MD Date of Service: 04/30/24 Procedure(s): CT abdomen pelvis w IV con Accession Number(s): [id number] cc: Jennifer Santillan MD; Lu Estrada MD Report Number: [id number]: Total DLP = 746.00 mGy-cm ADDENDUM This document has been electronically signed by: Monie Jenkins MD on 04/30/2024 05:22:49 ADDENDUM: Receipt of this report by the clinical staff was confirmed with David Nick on Apr 30, 2024 05:25:00 EST. This [...] W IV CON - 03/04/24 22:[address]/IA/SR - CT ABDOMEN PELVIS WO IV CON [...] in OV> 04/30/24522 DD/ 1 TD/TT: 04/30/24521 Classroom Paraprofessional: [facility] External Provider IMG CT PROCEDURES Edited Result - Final * hCG, Total, Quantitative (04/30/2024 1:09 AM EST) HCG Quantitative <2 mIU/mL [facility] Comment:Weeks post LMP Appro ximate hCG(Last Menstrual Period) Range (mIU/ml)3 - 4 weeks 9 - 1304 - 5 weeks 75 - 2,6005 - 6 weeks 850 - 20,8006 - 7 weeks 4000 - 100,2007 - 12 weeks 11,500 - 289,32686 - 16 weeks 18,300 - 137,74384 - 29 weeks (2nd trimester) 1,400 - 53,16662 - 41 weeks (3rd trimester) 940 - 60,000The Chavez B- hCG assay is used for the early detection ofpregnancy; it cannot be used to diagnose any conditionunrelated to . If a B-hCG level is not supportedby the clinical evidence, results should be confirmed by analternative method (qualitative urine hCG, for example). 04/30/2024 1:09 AM EST 04/30/2024 1:13 AM EST Generic External Data Provider LAB BLOOD ORDERAB LES Final Result Performing Organization Address [facility] Co de Phone Number [facility] [address] [place] [phone] * (ABNORMAL) Lipase (04/30/2024 1:09 AM EST) Lipase 86(H) 8 - 78 U/L [facility] 04/30/2024 1:09 AM EST 04/30/2024 1:13 AM EST Generic External Data Provider LAB BLOOD ORDERAB LES Final Result Performing Organization Address [facility] Co de Phone Number [facility] [address] [place] [phone] * Comprehensive Metabolic Panel (04/30/2024 1:09 AM EST) Sodium 140 135 - 145 mmol/L [facility] Potassium 4.1 3.3 - 5.1 mmol/L [facility] Chloride 108 96 - 108 mmol/L [facility] Carbon Dioxide 24 22 - 29 mmol/L [facility] Anion Gap 12 12 - 20 [facility] Urea Nitrogen (BUN) 11 9 - 16 mg/dL [facility] Creatinine, Serum 0.88 0.5 - 1.4 mg/dL [facility] Creatinine Clr Calc Pharmacy 101.5 [facility] Comment:Provided height and weight: 167.64 cm,92.986 kg.eGFR (calculated from the MDRD study equation) and eCrCl(calculated from the Cockcroft-Gault equation) are based ondifferent parameters and may not yield comparable results.If eCrCl result is absurd, please check patient'sheight/weight. Estimated Glomerular Filt Rate >60 [facility] Comment:Chronic Kidney Disea se: Estimated GFR < 60 mL/min/1.03f7Rpaitm Kidney Disease: Estimated GFR < 15 mL/min/1.73m2 Glucose 95 60 - 115 mg/dL [facility] Calcium 8.9 8.4 - 10.2 mg/dL [facility] Bilirubin, Total 0.3 0.0 - 1.0 mg/dL [facility] Aspartate Amino Transferase 16 5 - 31 U/L [facility] Alanine Aminotransferase 8 0 - 31 U/L [facility] Total Protein 7.2 6.5 - 8.0 g/dL [facility] Albumin Level 3.9 3.5 - 5.0 g/dL [facility] Alkaline Phosphatase 50 39 - 117 U/L [facility] 04/30/2024 1:09 AM EST 04/30/2024 1:13 AM EST us Generic External Data Provider LAB BLOOD ORDERAB LES Final Result [facility] [address] [place] [phone] * Urinalysis, Complete, with Reflex to Culture (04/30/2024 1:09 AM EST) Color Urine Yellow [facility] Appearance Urine Clear [facility] PH 5.5 5.0 - 9.0 [facility] Glucose Urine UA Negative Negative mg/dL [facility] Urine Blood Negative Negative [facility] Specific [place] - Urine 1.025 1.005 - 1.025 [facility] Urine Protein Negative Neg-Trace mg/dL [facility] Urine Ketones Negative Negative mg/dL [facility] Nitrite Urine Negative Negative [facility] Leukocyte Esterase Urine Negative Negative [facility] RBC Urine 0-2 0 - 2 /HPF [facility] Urine WBC 0-5 0 - 5 /HPF [facility] Urine Squamous Epithelial Cell 3-5 0 - 2 /HPF [facility] Urine Bacteria Trace None Seen [facility] Hyaline Casts, Urine 0-2 0 - 2 /LPF [facility] 04/30/2024 1:09 AM EST 04/30/2024 1:13 AM EST Narrative [facility] - 04/30/2024 1:21 AM EST [id number], Clean Catch us Generic External Data Provider LAB URINE ORDERAB LES Final Result [facility] [address] [place] [address] [phone] * (ABNORMAL) CBC auto differential (04/30/2024 1:09 AM EST) White Blood Count 7.6 4.8 - 10.8 X10*3/uL [facility] Red Blood Count 4.02(L) 4.20 - 5.50 X10*6/uL [facility] Hemoglobin 11.6(L) 12.0 - 16.0 g/dl [facility] Hematocrit 35.4(L) 37.0 - 47.0 % [facility] Mean Corpuscular Volume 88.1 80.0 - 98.0 fL [facility] Mean Corpuscular Hemoglobin 28.9 27.0 - 33.0 pg [facility] Mean Corpuscular HGB Conc 32.8 31.0 - 35.0 g/dl [facility] Red Cell Distribution Width 14.2 11.0 - 16.0 % [facility] Platelet Count 255 160 - 400 X10*3/uL [facility] Mean Platelet Volume 9.7 9.4 - 12.3 fL [facility] Neutrophils Percent Auto 39.1(L) 45 - 73 % [facility] Imm Gran Pct Auto 0.3 0.0 - 0.4 % [facility] Lymphocytes Percent Auto 53.0(H) 20 - 40 % [facility] Monocytes Percent Auto 5.9 2 - 11 % [facility] Eosinophils Percent Auto 1.3 0 - 4 % [facility] Basophils Percent Auto 0.4 0 - 2 % [facility] NRBC Pct Auto 0.0 0.0 - 0.2 /100WBC [facility] Neutrophils Absolute Auto 3.0 2.0 - 8.3 x10*3/uL [facility] Imm Gran Abs Auto 0.02 0.00 - 0.03 X10*3/uL [facility] Lymphocytes Absolute Auto 4.0 1.2 - 4.9 X10*3/uL [facility] Monocytes Absolute Auto 0.5 0.1 - 1.2 X10*3/uL [facility] Eosinophils Absolute Auto 0.1 0.0 - 0.4 X10*3/uL [facility] Basophils Absolute Auto 0.0 0.0 - 0.2 X10*3/uL [facility] NRBC Abs Auto 0.000 0.0 - 0.012 X10*3/uL [facility] 04/30/2024 1:09 AM EST 04/30/2024 1:13 AM EST us Generic External Data Provider LAB BLOOD ORDERAB LES Final Result [facility] [address] [place] [phone] [phone] documented in this encounter Visit Diagnoses Not on filedocumented in this encounter Additional Health Concerns Assessment Noted Time PHQ-9 Depression Total Score: 5 01/22/20 24 3:06 PM EDT documented as of this encounter Care Teams Repairer General Relationship Specialty Start Date End Date Lu Estrada MD [address] [place] [phone] PCP - General Family Medicine 03/27/18 documented as of this encounter
--- OUTSIDE RECORDS SUMMARY | 2024-05-08 21:27 | XMS_ITS | Encounter Summary ---
Author Organization [employer] Address 75 [facility] 7t [place] [address] Care Team Providers Care Racket Stringer Name Role Phone Lu Estrada MD Primary Care Provider [phone] Reason for Visit * Reason Comments Transition Of Care (Tcm) Encounter Details Date Type Department Care Team ([facility] Contact Info) Description 04/30/2024 Patient Outreach [facility] MEDICINE [address] [place] [address] Lu Estrada MD [address] [place] [address] Transition Of Care (Tcm) Social History Tobacco Use Types Packs/Day Years [...] AM EDT documented as of this encounter Progress Notes * Adolfo Ramos RN - 04/30/2024 10:42 AM EST 04/30/24 1043 Hospital Discharges and Admission for [facility] Type of Visit Emergency Department Date of Admission/Visit 04/30/24 (2:08 am) Date of Discharge 04/30/24 (7:46 am) Facility [facility] Diagnosis right stomach pain Disposition Discharged Home * Ericka Edwards RN - 04/30/2024 10:42 AM EST See other encounter from 05/01/24 in regards to ED follow up. documented in this encounter Plan of Treatment Upcoming Encounters Date Type Department Care Team (Late st Contact Info) Description 05/21/2024 3:15 PM EST Office Visit [facility] MEDICINE [address] [place] [address] Lu Estrada MD [address] [place] [address] 05/22/2024 2:30 PM EST Medication Management [facility] MEDICINE [address] [place] [address] Praful Weiner, PharmD [address] [place] [address] 06/18/2024 9:45 AM EDT Office Visit [facility] OPTOMETRY [address] [place] [address] Aziza Mckoy, OD [address] [place] [address] 09/11/2024 10:00 AM EDT Office Visit [facility] ADULT DENTAL [address] [place] [address] Heidi Ennis [address] [place] [address] documented as of this encounter Visit Diagnoses Not on filedocumented in this encounter Additional Health Concerns Assessment Noted Time PHQ-9 Depression Total Score: 5 01/22/20 24 3:06 PM EDT documented as of this encounter Care Teams Racket Stringer Relationship Specialty Start Date End Date Lu Estrada MD [address] [place] [address] PCP - General Family Medicine 03/27/18 documented as of this encounter
--- OUTSIDE RECORDS SUMMARY | 2024-05-08 21:27 | XMS_ITS | Encounter Summary ---
Author Organization [employer] Address 75 [facility] 7t [place] [address] Care Team Providers Care Band Sewer Name Role Phone Lu Estrada MD Primary Care Provider [phone] Encounter Details Date Type Department Care Team ([facility] Contact Info) Description 03/18/2022 Abstract [facility] ADULT DENTAL [address] [place] [address] Viet Kellogg DDS [address] [place] [address] Social History Tobacco Use Types Packs/Day Years [...] Upcoming Encounters Date Type Department Care Team ([facility] Contact Info) Description 05/21/2024 3:15 PM EST Office Visit [facility] MEDICINE [address] [place] [address] Lu Estrada MD 230 [place] [address] 05/22/2024 2:30 PM EST Medication Management [facility] MEDICINE [address] [place] [address] Praful Weiner, PharmD 230 [place] [address] 06/18/2024 9:45 AM EDT Office Visit [facility] OPTOMETRY [address] [place] [address] Aziza Mckoy, OD 267 [place] [address] 09/11/2024 10:00 AM EDT Office Visit [facility] ADULT DENTAL [address] [place] [address] Heidi Ennis [address] [place] [address] documented as of this encounter Visit Diagnoses Not on filedocumented in this encounter Care Teams Band Sewer Relationship Specialty Start Date End Date Lu Estrada MD [address] [place] [address] PCP - General Family Medicine 03/27/18 documented as of this encounter
--- OUTSIDE RECORDS SUMMARY | 2024-05-08 21:27 | XMS_ITS | Encounter Summary ---
Author Organization [employer] Address [address] [place] [address] 7t [place] [address] Care Team Providers Care Drafter Patent Name Role Phone Lu Estrada MD Primary Care Provider [phone] Encounter Details Date Type Department Care Team (Late st Contact Info) Description 02/23/2022 Abstract [facility] ADULT DENTAL [address] [place] [address] Dental, Provider, DDS Social History Tobacco Use [...] Department Care Team (Late Contact Info) Description 05/21/2024 3:15 PM EST Office Visit [facility] MEDICINE [address] [place] [address] Lu Estrada MD [address] [place] [address] 05/22/2024 2:30 PM EST Medication Management [address] [address] Praful Weiner, PharmD [address] [place] [address] 06/18/2024 9:45 AM EDT Office Visit [facility] OPTOMETRY [address] [place] [address] Lorenayvette Aziza, OD [address] [place] [address] 09/11/2024 10:00 AM EDT Office Visit [facility] ADULT DENTAL 230 [place] [address] Raymon Heidi 230 [place] [address] documented as of this encounter Procedures Procedure Name Priority Date/Time Associated Diagnosis Comments 14 O AMALGAM FILLING Routine 02/23/2022 12:00 AM EST documented in this encounter Visit Diagnoses Not on filedocumented in this encounter Care Teams Drafter Patent Relationship Specialty Start Date End Date Lu Estrada MD 230 [place] [address] PCP - General Family Medicine 03/27/18 documented as of this encounter
--- OUTSIDE RECORDS SUMMARY | 2024-05-08 21:27 | XMS_ITS | Encounter Summary ---
Author Organization [employer] Address 75 [facility] 7t [place] [address] Care Team Providers Care Sole Inker Name Role Phone Lu Estrada MD Primary Care Provider [phone] Encounter Details Date Type Department Care Team (Latest Contact Info) Description 07/08/2020 Abstract [facility] CONVERSIONS Dental, Provider, DDS Social History [...] Description 05/21/2024 3:15 PM EST Office Visit [facility] MEDICINE [address] [place] [address] Lu Estrada MD 230 [place] [address] 05/22/2024 2:30 PM EST Medication Management [facility] MEDICINE 230 [place] [address] Praful Weiner, PharmD [address] [place] [address] 06/18/2024 9:45 AM EDT Office Visit [facility] OPTOMETRY [address] [place] [address] Leelee Aziza, OD [address] [place] [address] 09/11/2024 10:00 AM EDT Office Visit [facility] ADULT DENTAL [address] [place], [place] [phone] Raymon, Heidi 230 [place] [address] documented as of this encounter Visit Diagnoses Not on filedocumented in this encounter Care Teams Sole Inker Relationship Specialty Start Date End Date Lu Estrada MD 230 [place] [address] PCP - General Family Medicine 03/27/18 documented as of this encounter
--- OUTSIDE RECORDS SUMMARY | 2024-05-08 21:27 | XMS_ITS | Encounter Summary ---
Author Organization [employer] Address 75 [facility] 7t [place] [address] Care Team Providers Care Patient Transition Specialist Name Role Phone Lu Estrada MD Primary Care Provider [phone] Encounter Details Date Type Department Care Team ([facility] Contact Info) Description 10/17/2022 Abstract [facility] ADULT DENTAL 230 [place] [address] Raymon, Heidi [address] [place] [address] Social History Tobacco Use Types Packs/Day Years [...] Upcoming Encounters Date Type Department Care Team ([facility] Contact Info) Description 05/21/2024 3:15 PM EST Office Visit [facility] MEDICINE 230 [place] [address] Lu Estrada MD 230 [place] [address] 05/22/2024 2:30 PM EST Medication Management [facility] MEDICINE [address] [place] [address] Praful Weiner, PharmD 230 [place] [address] 06/18/2024 9:45 AM EDT Office Visit [facility] OPTOMETRY [address] [place] [address] TarAziza crawford, OD 267 [place] [address] 09/11/2024 10:00 AM EDT Office Visit [facility] ADULT DENTAL 230 [place] [address] Heidi Ennis 230 [place] [address] documented as of this encounter Visit Diagnoses Not on filedocumented in this encounter Care Teams Patient Transition Specialist Relationship Specialty Start Date End Date Lu Estrada MD 230 [place] [address] PCP - General Family Medicine 03/27/18 documented as of this encounter
--- OUTSIDE RECORDS SUMMARY | 2024-05-08 21:27 | XMS_ITS | Encounter Summary ---
Author Organization [employer] Address [address] [place] [address] 7t [place] [address] Care Team Providers Care Electric Switch Repairer Name Role Phone Lu Estrada MD Primary Care Provider [phone] Encounter Details Date Type Department Care Team (Late st Contact Info) Description 04/19/2022 Orders Only [facility] MEDICINE [address] [place] [address] [phone] Lu Estrada MD [address] [place] [address] [phone] Social History Tobacco Use Types Packs/Day Years [...] Description 05/21/2024 3:15 PM EST Office Visit [facility] MEDICINE [address] [place] [address] [phone] Lu Estrada MD [address] [place] [address] [phone] 05/22/2024 2:30 PM EST Medication Management [facility] MEDICINE 230 [place] [address] Praful Weiner, PharmD 230 [place] [address] 06/18/2024 9:45 AM EDT Office Visit [facility] OPTOMETRY 267 [place] [address] Aziza Mckoy, OD 267 [place] [address] 09/11/2024 10:00 AM EDT Office Visit [facility] ADULT DENTAL 230 [place] [address] Heidi Ennis 230 [place] [address] documented as of this encounter Visit Diagnoses Not on filedocumented in this encounter Care Teams Electric Switch Repairer Relationship Specialty Start Date End Date Lu Estrada MD 230 [place] [address] PCP - General Family Medicine 03/27/18 documented as of this encounter
--- OUTSIDE RECORDS SUMMARY | 2024-05-08 21:27 | XMS_ITS | Encounter Summary ---
Author Organization [employer] Address 75 [facility] 7t [place] [address] Care Team Providers Care Chainstitch Hemmer Name Role Phone Lu Estrada MD Primary Care Provider [phone] Reason for Visit * Reason Onset Date Comments Letter for School/Work 04/27/2023 Encounter Details Date Type Department Care Team ([facility] Contact Info) Description 04/27/2023 Telephone [facility] MEDICINE [address] [place] [address] Lu Estrada MD [address] [place], [place] [phone] Letter for School/Work Social History Tobacco Use [...] Description 05/21/2024 3:15 PM EST Office Visit [facility] MEDICINE [address] [place] [address] Lu Estrada MD 230 [place] [address] 05/22/2024 2:30 PM EST Medication Management [facility] MEDICINE 230 [place] [address] Praful Weiner, PharmD 230 [place] [address] 06/18/2024 9:45 AM EDT Office Visit [facility] OPTOMETRY 267 [place] [address] Aziza Mckoy, OD 267 [place] [address] 09/11/2024 10:00 AM EDT Office Visit [facility] ADULT DENTAL 230 [place] [address] Heidi Ennis 230 [place] [address] documented as of this encounter Visit Diagnoses Not on filedocumented in this encounter Additional Health Concerns Assessment Noted Time PHQ-9 Depression Total Score: 0 03/08/20 23 11:18 AM EST documented as of this encounter Care Teams Chainstitch Hemmer Relationship Specialty Start Date End Date Lu Estrada MD 230 [place] [address] PCP - General Family Medicine 03/27/18 documented as of this encounter
--- OUTSIDE RECORDS SUMMARY | 2024-05-08 21:27 | XMS_ITS | Encounter Summary ---
Author Organization [employer] Address [address] [place] [address] 7 [place] [address] Care Team Providers Care Beam Doffer Name Role Phone Lu Estrada MD Primary Care Provider [phone] Reason for Visit * Reason Comments Med Refill Encounter Details Date Type Department Care Team (Late st Contact Info) Description 04/19/2022 Refill [facility] MEDICINE [address] [place] [address] [phone] Leatha Chong MD [address] [place] [address] [phone] Primary hypertension (Primary Dx) Social History Tobacco [...] 3:15 PM EST Office Visit [facility] MEDICINE 230 [place], [place] [phone] Lu Estrada MD 230 [place], [place] [phone] 05/22/2024 2:30 PM EST Medication Management [facility] MEDICINE 230 [place] [address] Praful Weiner, PharmKiah 230 [place] [address] 06/18/2024 9:45 AM EDT Office Visit [facility] OPTOMETRY 267 [place] [address] Aziza Mckoy, OD 267 [place] [address] 09/11/2024 10:00 AM EDT Office Visit [facility] ADULT DENTAL 230 [place] [address] Heidi Ennis 230 [place] [address] documented as of this encounter Visit Diagnoses Diagnosis Primary hypertension- Primary Unspecified essential hypertension documented in this encounter Care Teams Beam Doffer Relationship Specialty Start Date End Date Lu Estrada MD 230 [place] [address] PCP - General Family Medicine 03/27/18 documented as of this encounter
--- OUTSIDE RECORDS SUMMARY | 2024-05-08 21:27 | XMS_ITS | Encounter Summary ---
Author Organization [employer] Address [address] [facility] [address] 7t [place] [address] Care Team Providers Care Sap Director Name Role Phone Lu Estrada MD Primary Care Provider [phone] Encounter Details Date Type Department Care Team [...] Description 05/21/2024 3:15 PM EST Office Visit [facility] MEDICINE [address] [place] [address] Lu Estrada MD 230 [place] [address] 05/22/2024 2:30 PM EST Medication Management [facility] MEDICINE 230 [place] [address] Praful Weiner, PharmD 230 [place] [address] 06/18/2024 9:45 AM EDT Office Visit [facility] OPTOMETRY 267 [place] [address] TarAziza crawford, OD 267 [place] [address] 09/11/2024 10:00 AM EDT Office Visit [facility] ADULT DENTAL 230 [place] [address] Heidi Ennis 230 [place] [address] documented as of this encounter Visit Diagnoses Not on filedocumented in this encounter Additional Health Concerns Assessment Noted Time PHQ-9 Depression Total Score: 5 01/22/20 24 3:06 PM EDT documented as of this encounter Care Teams Sap Director Relationship Specialty Start Date End Date Lu Estrada MD 230 [place] [address] PCP - General Family Medicine 03/27/18 documented as of this encounter
--- OUTSIDE RECORDS SUMMARY | 2024-05-08 21:27 | XMS_ITS | Encounter Summary ---
Demographics Address [address] [facility] [address] [place] [address] Home Phone Work Phone Mobile Phone Email Address Preferred Language en Marital Status Single Quaker Affiliation Unknown Race Other Race Ethnic Group or Author Organization [employer] Address 75 [facility] 7t [place] [address] Care Team Providers Care Double End Tenon Operator Name Role Phone Lu Estrada MD Primary Care Provider [phone] Encounter Details Date Type Department Care Team ([facility] Contact Info) Description 03/28/2024 Orders Only [facility] CHC MED & PEDS [address] [place] [address] Elliot Antunez MD 505 [place] [address] Social History Tobacco Use Types Packs/Day Years [...] Description 05/21/2024 3:15 PM EST Office Visit [facility] MEDICINE [address] [place] [address] Lu Estrada MD [address] [place] [address] 05/22/2024 2:30 PM EST Medication Management [facility] MEDICINE [address] [place] [address] Praful Weiner, PharmD 230 [place] [address] 06/18/2024 9:45 AM EDT Office Visit [facility] OPTOMETRY 267 [place] [address] Aziza Mckoy, OD 267 [place] [address] 09/11/2024 10:00 AM EDT Office Visit [facility] ADULT DENTAL [address] [place] [address] Heidi Ennis [address] [place] [address] documented as of this encounter Visit Diagnoses Not on filedocumented in this encounter Additional Health Concerns Assessment Noted Time PHQ-9 Depression Total Score: 5 01/22/20 24 3:06 PM EDT documented as of this encounter Care Teams Double End Tenon Operator Relationship Specialty Start Date End Date Lu Estrada MD 230 [place] [address] PCP - General Family Medicine 03/27/18 documented as of this encounter
--- OUTSIDE RECORDS SUMMARY | 2024-05-08 21:27 | XMS_ITS | Encounter Summary ---
Author Organization [employer] Address [address] [place] [address] 7t [place] [address] Care Team Providers Care Machine Binding Folder Name Role Phone Lu Estrada MD Primary Care Provider [phone] Reason for Referral * Imaging (Routine) - Authorized Specialty Diagnoses / Procedures Referred By [facility] Referred To Contact Radiology Diagnoses Abnormal CT of the abdomen Breast density Procedures BI Mammogram Diagnostic Tomosynthesis Right Lu Estrada MD [address] [place] [address] Phone: tel: fax: [facility] [address] [place] [address] Phone: tel: fax: Referral ID Status Reason Start Date Expiration Date V isits Requested Visits Authorized [id number] Authorized 04/30/2024 04/30/2025 1 1 Encounter Details Date Type Department Care Team (Late st Contact Info) Description 04/30/2024 Orders Only [facility] MEDICINE 230 [place], [place] [phone] Lu Estrada MD 230 [place], [place] [phone] Abnormal CT of the abdomen (Primary Dx); Breast density Social History Tobacco Use Types Packs/Day Years [...] Upcoming Encounters Date Type Department Care Team ([facility] st Contact Info) Description 05/21/2024 3:15 PM EST Office Visit [facility] MEDICINE 230 [place] [address] Lu Estrada MD 230 [place] [address] 05/22/2024 2:30 PM EST Medication Management [facility] MEDICINE 230 [place] [address] Praful Weiner, PharmD 230 [place] [address] 06/18/2024 9:45 AM EDT Office Visit [facility] OPTOMETRY [address] [place] [address] Tarka, Aziza, OD 267 [place] [address] 09/11/2024 10:00 AM EDT Office Visit [facility] ADULT DENTAL 230 [place] [address] Heidi Ennis 230 [place] [address] Scheduled Orders Name Type Priority Associated Diagnoses Orde r Schedule BI Mammogram Diagnostic Tomosynthesis Right Imaging Routine Abnormal CT of the abdomen Breast density Expected: 04/30/2024, Expires: 06/28/2025 documented as of this encounter Visit Diagnoses Diagnosis Abnormal CT of the abdomen- Primary Nonspecific (abnormal) findings on radiological and other examination of abdominal area, including retroperitoneum Breast density Other sign and symptom in breast documented in this encounter Additional Health Concerns Assessment Noted Time PHQ-9 Depression Total Score: 5 01/22/20 24 3:06 PM EDT documented as of this encounter Care Teams Machine Binding Folder Relationship Specialty Start Date End Date Lu Estrada MD [address] [place] [address] PCP - General Family Medicine 03/27/18 documented as of this encounter
--- OUTSIDE RECORDS SUMMARY | 2024-05-08 21:27 | XMS_ITS | Encounter Summary ---
Author Organization [employer] Address 75 [facility] 7t [place] [address] Care Team Providers Care Hostess Name Role Phone Lu Estrada MD Primary Care Provider [phone] Encounter Details Date Type Department Care Team (Latest Contact Info) Description 01/01/2019 Abstract [facility] CONVERSIONS Dental, Provider, DDS Social History [...] Description 05/21/2024 3:15 PM EST Office Visit [facility] MEDICINE [address] [place] [address] Lu Estrada MD 230 [place] [address] 05/22/2024 2:30 PM EST Medication Management [facility] MEDICINE 230 [place] [address] Praful Weiner, PharmD [address] [place] [address] 06/18/2024 9:45 AM EDT Office Visit [facility] OPTOMETRY [address] [place] [address] Leelee Aziza, OD [address] [place] [address] 09/11/2024 10:00 AM EDT Office Visit [facility] ADULT DENTAL 230 [place] [address] Mc Ennisaris 230 [place] [address] documented as of this encounter Visit Diagnoses Not on filedocumented in this encounter Care Teams Hostess Relationship Specialty Start Date End Date Lu Estrada MD 230 [place] [address] PCP - General Family Medicine 03/27/18 documented as of this encounter
--- OUTSIDE RECORDS SUMMARY | 2024-05-08 21:27 | XMS_ITS | Encounter Summary ---
Author Organization [employer] Address [address] [facility] [address] 7t [place] [address] Care Team Providers Care Mat Roller Name Role Phone Lu Estrada MD Primary Care Provider [phone] Reason for Visit * Reason Comments Med Refill Encounter Details Date Type Department Care Team ([facility] st Contact Info) Description 03/09/2023 Refill [facility] CHC MED & PEDS [address] [place], [place] [phone] Vandana Black, ANP 230 [place] [address] Social History Tobacco Use Types Packs/Day Years [...] Visit [facility] MEDICINE [address] [place] [address] Lu Estrada MD [address] [place] [address] 05/22/2024 2:30 PM EST Medication Management [facility] MEDICINE [address] [place] [address] Praful Weiner, PharmD [address] [place] [address] 06/18/2024 9:45 AM EDT Office Visit [facility] OPTOMETRY [address] [place] [address] TarAziza crawford, OD [address] [place] [address] 09/11/2024 10:00 AM EDT Office Visit [facility] ADULT DENTAL 230 [place] [address] Raymon Heidi [address] [place] [address] documented as of this encounter Visit Diagnoses Not on filedocumented in this encounter Additional Health Concerns Assessment Noted Time PHQ-9 Depression Total Score: 0 03/08/20 23 11:18 AM EST documented as of this encounter Care Teams Mat Roller Relationship Specialty Start Date End Date Lu Estrada MD [address] [place] [address] PCP - General Family Medicine 03/27/18 documented as of this encounter
--- OUTSIDE RECORDS SUMMARY | 2024-05-08 21:27 | XMS_ITS | Encounter Summary ---
Author Organization [employer] Address [address] [facility] [address] 7t [place] [address] Care Team Providers Care Nutrition Representative Name Role Phone Lu Estrada MD Primary Care Provider [phone] Reason for Visit * Reason Onset Date Comments chart prep 04/24/2024 Encounter Details Date Type Department Care Team ([facility] st Contact Info) Description 04/24/2024 Telephone [facility] MEDICINE [address] [place] [address] Jordyn Brewster MA chart prep Social History [...] Description 05/21/2024 3:15 PM EST Office Visit [facility] MEDICINE [address] [place] [address] Lu Estrada MD [address] [place] [address] 05/22/2024 2:30 PM EST Medication Management [address] [address] Praful Weiner, PharmD [address] [place] [address] 06/18/2024 9:45 AM EDT Office Visit [facility] OPTOMETRY [address] [place] [address] Aziza Mckoy, OD [address] [place] [address] 09/11/2024 10:00 AM EDT Office Visit [facility] ADULT DENTAL 230 [place] [address] Raymon, Heidi 230 [place] [address] documented as of this encounter Visit Diagnoses Not on filedocumented in this encounter Additional Health Concerns Assessment Noted Time PHQ-9 Depression Total Score: 5 01/22/20 24 3:06 PM EDT documented as of this encounter Care Teams Nutrition Representative Relationship Specialty Start Date End Date Lu Estrada MD 230 [place] [address] PCP - General Family Medicine 03/27/18 documented as of this encounter
--- OUTSIDE RECORDS SUMMARY | 2024-05-08 21:27 | XMS_ITS | Encounter Summary ---
Author Organization [employer] Address [address] [place] [address] 7[address] [place] [address] Care Team Providers Care Meter Supervisor Name Role Phone Lu Estrada MD Primary Care Provider [phone] Encounter Details Date Type Department Care Team (Late st Contact Info) Description 04/04/2022 Abstract [facility] D[facility] [address] [place] [id number] Viet Kellogg DDS [address] [place] [address] Social History Tobacco Use Types Packs/Day Years [...] Description 05/21/2024 3:15 PM EST Office Visit [facility] [address] [place] [phone] Lu Estrada MD [address] [place] [address] 05/22/2024 2:30 PM EST Medication Management [facility] [address] [place] [address] Praful Weiner, PharmD [address] [place] [address] 06/18/2024 9:45 AM EDT Office Visit [facility] OPTOMETRY [address] [place] [address] Aziza Mckoy, OD [address] [place] [address] 09/11/2024 10:00 AM EDT Office Visit [facility] AD[facility]ENT[facility] [address] [place] [address] Mc Ennisaris [address] [place] [address] documented as of this encounter Visit Diagnoses Not on filedocumented in this encounter Care Teams Meter Supervisor Relationship Specialty Start Date End Date Lu Estrada MD [address] [place] [address] PCP - General Family Medicine 03/27/18 documented as of this encounter
--- OUTSIDE RECORDS SUMMARY | 2024-05-08 21:27 | XMS_ITS | Encounter Summary ---
Author Organization [employer] Address [address] [facility] 7t [place] [address] Care Team Providers Care Zipper Measurer Name Role Phone Lu Estrada MD Primary Care Provider [phone] Reason for Visit * Reason Onset Date Comments Appointment Request 11/30/2023 Encounter Details Date Type Department Care Team ([facility] st Contact Info) Description 11/30/2023 Telephone [facility] [address] [place] [address] Lu Estrada MD [address] [place] [address] Appointment Request Social History Tobacco Use Types [...] the past 12 months, has t he [employer], gas, oil or water [employer] threatened to shut off services in your [...] schedueled for today 11/30/23, appt was cancelled. [employer] attempted to r/s however zero availability. Please contact at [phone] documented in this encounter Plan of Treatment Upcoming Encounters Date Type Department Care Team (Late st Contact Info) Description 05/21/2024 3:15 PM EST Office Visit [facility] [address] [place] [address] [phone] Lu Estrada MD [address] [place] [address] 05/22/2024 2:30 PM EST Medication Management [address] [phone] Praful Weiner, PharmD [address] [place] [address] 06/18/2024 9:45 AM EDT Office Visit [facility] [address] [place] [address] Aziza Mckoy, OD [address] [place] [address] 09/11/2024 10:00 AM EDT Office Visit [facility] [address] [place] [address] Raymon, Heidi [address] [place] [address] documented as of this encounter Visit Diagnoses Not on filedocumented in this encounter Additional Health Concerns Assessment Noted Time PHQ-9 Depression Total Score: 0 03/08/20 23 11:18 AM EST documented as of this encounter Care Teams Zipper Measurer Relationship Specialty Start Date End Date Lu Estrada MD [address] [place] [address] PCP - General Family Medicine 03/27/18 documented as of this encounter
--- OUTSIDE RECORDS SUMMARY | 2024-05-08 21:27 | XMS_ITS | Encounter Summary ---
Author Organization [employer] Address [address] 7[address] [place] [address] Care Team Providers Care Golf Cart Repairer Name Role Phone Lu Estrada MD Primary Care Provider [phone] Encounter Details Date Type Department Care Team ([facility] st Contact Info) Description 04/29/2024 10:15 AM EST Office Visit [facility] [address] [place] [address] Lu Estrada MD [address] [place] [address] Primary hypertension (Primary Dx); Moderate persistent asthma [...] 10:43 AM EST documented in this encounter Progress Notes * Lu Estrada MD - 04/29/2024 10:15 AM EST Eugenia Mckeon is a 38 y.o. female who has asthma, hypertension, IBS, GERD, anxiety / depression,and fibromyalgia, and patient presents for chronic conditions. Background: Our last encounter was 01/22/2024. Still elevated BP. Patient reported normal home BP. She was scheduled to see Dr. Delgado, [facility], [facility] for right ovarian cyst on 01/25/24. Patient was going to reschedule appointment with ENT. Interval history: Seen by Dr. Delgado on 01/25/24 as scheduled. Low risk of R ovarian cyst being malignant. Patient reported chronic pain; therefore, she gave an informed consent to surgical ovarian cyst removal. She underwent bilateral salpingectomy, bilateral ovarian cystectomy via [facility], and D&C by [facility] on 02/07/24. Seen in [facility] ED on 02/18/24 for chilles without fever. Dx viral syndrome. Recommended supportive care. Rx ibuprofen. Seen in [facility] on 03/04/24 for ESPINOSA. Dx ovarian cyst, hypokalemia, and ESPINOSA. Given potassium replacement. Rx gabapentin 100 mg tablet. Seen by Dr. Siegel in the walk-in clinic on 03/06/24 for arm pain. Rx cyclobenzaprine. Seen by Dr. Márquez in Derm clinic on 03/08/24. Skin tags were removed. Seen in the walk-in clinic for dizziness on 03/25/24. Concerned about recurrence of hypokalemia. Rxgabapentin. Lab was ordered. Today: The pt reports pain on the left side of her lower back, which she says started last week. The pain is described as severe, affecting the ability to bend forward or backward. She had to leave work early on Monday and was unable to work yesterday due to the pain. The pain is associated with a burningsensation during urination. She has not been diagnosed with kidney stones before. She mentions thatthe pain started after a recent surgery. She has been experiencing chills and body pain since the surgery. She has had multiple CT scans in the past year and there is concern about radiation exposure. She reports feeling that the left side of her stomach is more bloated than the right. She has experiences nausea and has ran out of her medication for it. She reports taking her blood pressure at home, and reports that the readings are still high at homeeven though she takes her medication. She states how she is a little constipated. Review of Systems Constitutional: Negative for activity change, appetite change and fever. Respiratory: Negative for shortness of breath. Cardiovascular: Negative for chest pain. Gastrointestinal: Positive for nausea. Left side abdominal bloating Musculoskeletal: Positive for back pain. Objective Vitals: 04/29/24 1043 BP: (!) 157/70 Pulse: 66 Resp: 18 Temp: 96.8 ??F (36 ??C) TempSrc: Temporal SpO2: 98% Weight: 205 lb (93 kg) Height: 5' 7.28 (1.709 m) Physical Exam Constitutional: General: She is not in acute distress. Appearance: Normal appearance. She is not ill-appearing. HENT: Head: Normocephalic and atraumatic. Mouth/Throat: Mouth: Mucous membranes are moist. Eyes: Extraocular Movements: Extraocular movements intact. Pupils: Pupils are equal, round, and reactive to light. Cardiovascular: Rate and Rhythm: Normal rate and regular rhythm. Heart sounds: No murmur heard. Pulmonary: Effort: Pulmonary effort is normal. No respiratory distress. Breath sounds: Normal breath sounds. No wheezing or rhonchi. Skin: General: Skin is warm. Neurological: Mental Status: She is alert. Mental status is at baseline. Psychiatric: Mood and Affect: Mood normal. Results: Lab Results Component Value Date NA 140 04/30/2024 K 4.1 04/30/2024 CL 108 04/30/2024 CO2 24 04/30/2024 BUN 11 04/30/2024 CREATININE 0.88 04/30/2024 CRCLCALCPH 101.5 04/30/2024 EGFR >60 04/30/2024 GLUCOSE 95 04/30/2024 TOTALBILIRUB 0.3 04/30/2024 AST 16 04/30/2024 ALT 8 04/30/2024 TOTPROTEIN 7.2 04/30/2024 ALB 3.9 04/30/2024 ALP 50 04/30/2024 Lab Results Component Value Date TRIG 88 01/22/2024 CHOL 183 01/22/2024 LDLCHOLCAL 126 (H) 01/22/2024 HDL 40 (L) 01/22/2024 Lab Results Component Value Date HGBA1C 5.4 01/22/2024 Lab Results Component Value Date WBC 7.6 04/30/2024 HGB 11.6 (L) 04/30/2024 HCT 35.4 (L) 04/30/2024 PLT 255 04/30/2024 MCV 88.1 04/30/2024 Screening and Health Care Maintenance: PHQ-2/9 Score: Patient Health Questionnaire-9 Score: 5 (01/22/2024 3:06 PM) Patient Health Questionnaire-2 Score: 1 (01/22/2024 3:06 PM) Thoughts that you would be better off or hurting yourself in some way: Not at all (01/22/2024 3:06 PM) TAVO-7 Score: TAVO-7 Total Score: 3 (04/29/2024 10:43 AM) Health Maintenance Due Topic Date Due Family Planning (PISQ) Never done Assessment/Plan Problem List Items Addressed This Visit Asthma -last exacerbation requiring prednisone in 2018 -continue Advair as maintenance -continue albuterol -continue Singulair Knee pain Relevant Orders XR Knee 1-2 Views Left Migraine -seen by [facility] neurologist in Apr 2019 -seen by [facility] neurology in Dec 2022 -04/23/22 Head [...] per 3 months. Patient agreed with plan. Relevant Medications ondansetron (Zofran) 4 MG tablet Fibromyalgia - encouraged to stay active - recently prescribed amitriptyline which she had tried for migraine and was discontinued due to ineffectiveness for headache; continue for fibromyalgia (usually non-adherence is the reason for discontinuation) - continue judicious use of cyclobenzaprine Hypertension - Primary -Goal BP < 140/90 per JNC-8 and [...] 3-6 mo, sooner if any problem arises Relevant Medications lisinopril 30 MG tablet Left sided abdominal pain - UA negative - most recent CT scan in Feb 2024 was unremarkable - since her [employer]TE[employer] WORK[employer] surgery; advised to contact her surgeon or 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 Gonorrhoeae RNA, TMA, Urogenitial POCT urinalysis dipstick manually resulted (Completed) No Known Allergies Current Outpatient Medications Medication Instructions albuterol 108 (90 Base) MCG/ACT inhaler Take 2 puffs every 4 hours as needed for wheezing. Maximum Daily dose 8 puffs per day. xrdalptkzd-uhyzsrlbrqptz-kxpnizjm 50-325-40 MG tablet Take 1 tablet by mouth every 8 hours as needed for severe headache which does not improve with acetaminophen, ibuprofen, or naproxen. Maximum 3 tablet per month. cholecalciferol (D3 SUPER STRENGTH) 50 mcg, Oral, Daily cyclobenzaprine (FLEXERIL) 10 mg, Oral, 3 times daily Fluticasone-Salmeterol (Advair Diskus) 250-50 MCG/ACT aerosol powder 1 puff, Inhalation, 2 times daily gabapentin (NEURONTIN) 300 mg, Oral, Every 8 hours scheduled hydrocortisone (Anusol-HC) 2.5 % rectal cream Every 12 hours hydrOXYzine pamoate (Vistaril) 25 MG capsule TAKE 1 CAPSULE BY MOUTH AT BEDTIME FOR SLEEP MAY TAKE 1 CAPSULE BY MOUTH UP TO THREE TIMES DAILY (DURING THE DAY) NEEDED FOR ANXIETY. lidocaine (Lidoderm) 5 % patch 1 patch, Apply externally, Daily, Remove & discard patch within 12 hours or as directed by MD. lisinopril 30 mg, Oral, Daily loratadine (Claritin) 10 MG tablet TAKE 1 TABLET BY MOUTH EVERY DAY montelukast (SINGULAIR) 10 mg, Oral, Nightly ondansetron (Zofran) 4 MG tablet TAKE 1 TABLET BY MOUTH EVERY 8 HOURS NEEDED FOR NAUSEA pantoprazole (PROTONIX) 40 mg, Oral, 2 times daily, Do not crush, chew, or split. Follow-up: 3 mo or sooner if any problem arises. Scribe Attestation: Yovani Bansal, am serving as a scribe to document services personally performed by Lu Estrada MD,based on the patient's response to questions by provider and provides statements to me. Physicians Attestation: Lu Bansal, have reviewed the information by the scribe, Lauren Blood, for accuracy and agree with its content. 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 -Continue working on lifestyle modifications -Continue improving medication adherence -Increase lisinopril 30 mg daily -Treatment Hx: Previously prescribed amlodipine. Poor health literacy and adherence. Discontinued since she was not taking it -Follow up in 3-6 mo, sooner if any problem arises * Assessment & Plan Note - Yovani Guzman - 04/29/2024 11:50 AM ESTAssociated Problem(s): Asthma -last exacerbation requiring prednisone in 2018 -continue Advair as maintenance -continue albuterol -continue Singulair * Assessment & Plan Note - Lu Estrada MD - 04/28/2024 4:12 PM ESTAssociated Problem(s): Migraine -seen by [facility] neurologist in Apr 2019 -seen by [facility] neurology in Dec 2022 -04/23/22 Head [...] 05/21/2024 3:15 PM EST Office Visit [facility] [address] [place] [address] Lu Estrada MD [address] [place] [address] 05/22/2024 2:30 PM EST Medication Management [facility] [address] [place] [address] Praful Weiner, PharmD [address] [place] [address] 06/18/2024 9:45 AM EDT Office Visit [facility] OPTOMETRY [address] [place] [address] TarkaAziza, OD [address] [place] [address] 09/11/2024 10:00 AM EDT Office Visit [facility] ADULT DENTAL [address] [place] [address] Raymon, Heidi [address] [place] [address] Scheduled Orders Name Type Priority Associated Diagnoses [...] documented as of this encounter Care Teams Golf Cart Repairer Relationship Specialty Start Date End Date Lu Estrada MD [address] [place] [address] PCP - General Family Medicine 03/27/18 documented as of this encounter
[2024-05-08 22:07] LABS: Influenza A PCR NEGATIVE (Negative); Influenza B PCR NEGATIVE (Negative); Resp Syncy Virus RNA Qual PCR NEGATIVE (Negative); SARS COV2 PCR INHOUSE NEGATIVE (Negative)
[2024-05-08 22:39] LABS: Basophils Percent Auto 0.5 % (0-2); Eosinophils Absolute Auto 0.1 X10*3/uL (0.0-0.4); Eosinophils Percent Auto 0.8 % (0-4); Hematocrit 39.4 % (37.0-47.0); Hemoglobin 13.1 g/dl (12.0-16.0); Lymphocytes Absolute Auto 3.3 X10*3/uL (1.2-4.9); MANUAL DIFF FLAG NO; Mean Corpuscular HGB Conc 33.2 g/dl (31.0-35.0); Mean Corpuscular Hemoglobin 28.7 pg (27.0-33.0); Mean Corpuscular Volume 86.4 fL (80.0-98.0); Mean Platelet Volume 10.6 fL (9.4-12.3); Monocytes Absolute Auto 0.5 X10*3/uL (0.1-1.2); Monocytes Percent Auto 7.7 % (2-11); Neutrophils Absolute Auto 2.7 x10*3/uL (2.0-8.3); Platelet Count 253 X10*3/uL (160-400); Red Blood Count 4.56 X10*6/uL (4.20-5.50); Red Cell Distribution Width 13.7 % (11.0-16.0); White Blood Count 6.7 X10*3/uL (4.8-10.8)
[2024-05-08 22:52] LABS: Alanine Aminotransferase 10 U/L (0-31); Albumin Level 4.5 g/dL (3.5-5.0); Alkaline Phosphatase 57 U/L (39-117); Anion Gap 13 (12-20); Aspartate Amino Transferase 19 U/L (5-31); Bilirubin Total 0.8 mg/dL (0.0-1.0); Blood Urea Nitrogen 14 mg/dL (9-16); Carbon Dioxide 21 mmol/L (22-29); Chloride 107 mmol/L (96-108); Creatinine Clr Calc Pharmacy 95.2; Estimated Glomerular Filt Rate > 60; Glucose Random 103 mg/dL (60-115); Potassium 3.7 mmol/L (3.3-5.1); Sodium 137 mmol/L (135-145); Total Protein 8.1 g/dL (6.5-8.0)
--- NOTE | 2024-05-09 06:58 | ED_ITS ---
HPI - General Adult General Chief complaint: General Medical Stated complaint: Bi-lateral pain no injury Time Seen by Provider: 05/09/24 06:58 Source: patient Mode of arrival: ambulatory Limitations: language barrier (Patient's speaks Telugu, [facility] certified court/medical interpreter used) History of Present Illness ED Provider: Dr. Hardy Lawson HPI narrative: 38-year-old female with a past medical history HTN, IBS, fibromyalgia, asthma, migraines, presenting to the ED complaining sudden onset of bilateral lower extremity pain. She states that she was having pain in both for hips, the pain travels down her legs to her feet. She states that the pain started earlier in the morning and has been constant since onset. She states the pain is a cramping pain which is moderate to severe in intensity. Patient states she was had similar pain in the past and is not certain if it is related to her fibromyalgia. she did take Flexeril, naproxen, ibuprofen, Tylenol and used ice with no relief of her pain. Related Data Home Medications ?Medication ?Instructions ?Recorded ?Confirmed albuterol sulfate 90 mcg/actuation 1 inh inhalation QID 01/15/20 12/05/23 aerosol inhaler (Proventil HFA) kfkswnx-hnvdknqklznha-vnouwqea 250 1 tab PO Q4-6H PRN Headache 01/15/20 12/05/23 mg-250 mg-65 mg tablet (Excedrin Migraine) loratadine 10 mg tablet (Allergy 10 mg PO DAILY 01/15/20 12/05/23 Relief (loratadine)) montelukast 10 mg tablet 10 mg PO BEDTIME 01/15/20 12/05/23 (Singulair) cholecalciferol (vitamin D3) 50 50 mcg PO DAILY 03/16/22 12/05/23 mcg (2,000 unit) capsule (Vitamin D3) lisinopril 10 mg tablet 10 mg PO DAILY 03/16/22 12/05/23 pantoprazole 40 mg tablet,delayed 40 mg PO BID 03/16/22 12/05/23 release fluticasone 250 mcg-salmeterol 50 1 ea inhalation BID 12/02/22 12/05/23 mcg/dose blistr powdr for inhalation (Advair Diskus) topiramate 25 mg tablet 25 mg PO BEDTIME 12/02/22 12/05/23 Previous Rx's ?Medication ?Instructions ?Recorded famotidine 20 mg tablet (Acid 20 mg PO BID #60 tabs 06/23/21 Bearing Grinder (famotidine)) qrhlbnyssg-yefjocizyznot-yeunghzg 1 cap PO Q8H PRN pain #3 caps 08/09/21 50 mg-300 mg-40 mg capsule (Fioricet) sumatriptan succinate 50 mg tablet 50 mg PO Q2-4H PRN migraine 03/24/22 headache #14 tabs acetaminophen 500 mg tablet 1,000 mg (2 x 500 mg) PO QID PRN 08/25/22 pain #30 tabs ibuprofen 600 mg tablet 600 mg PO Q6H PRN pain #20 tabs 08/25/22 ondansetron 4 mg disintegrating 4 mg PO Q8H #10 tabs 12/02/22 tablet propranolol 60 mg capsule,24 60 mg PO BEDTIME #90 caps 12/19/22 hr,extended release polyethylene glycol 3350 17 17 g PO DAILY #510 grams 06/02/23 gram/dose oral powder (Miralax) psyllium husk 3.4 gram/5.4 gram 1 tbsp PO BID #660 grams 06/02/23 oral powder (Metamucil) sucralfate 1 gram tablet (Carafate) 1 g PO TID #20 tabs 09/13/23 cyclobenzaprine 10 mg tablet 10 mg PO TID PRN muscle spasm #20 11/08/23 tabs cyclobenzaprine 10 mg tablet 10 mg PO TID #10 tabs 01/13/24 naproxen 500 mg tablet (Naprosyn) 500 mg PO BID #20 tabs 01/13/24 ibuprofen 600 mg tablet 600 mg PO Q6H PRN fever or pain 02/19/24 #30 tabs gabapentin 100 mg capsule 100 mg PO TID #30 caps 03/04/24 acetaminophen 500 mg tablet 500 mg PO Q6H PRN fever or pain 04/30/24 (Tylenol Extra Strength) #14 tabs cyclobenzaprine 5 mg tablet 5 mg PO Q8H PRN pain (scale score 04/30/24 7-10) 5 days #14 tabs lidocaine 5 % topical patch 1 patch topical DAILY PRN pain #30 04/30/24 (Lidoderm) ea naproxen 500 mg tablet 500 mg PO BID PRN pain 10 days #20 04/30/24 tabs methocarbamol 500 mg tablet 1,000 mg (2 x 500 mg) PO Q8H PRN 05/09/24 pain, moderate #24 tabs prednisone 20 mg tablet 60 mg (3 x 20 mg) PO DAILY 5 days 05/09/24 #15 tabs Allergies Allergy/AdvReac Type Severity Reaction Status Date / Time No Known Allergies Allergy Verified 05/08/24 21:21 [No Known Allergies*] Review of Systems 2 Review of Systems: Yes all other systems are reviewed and are negative [facility] Past Medical History Medical History Simple ovarian cyst Hypertension IBS (irritable bowel syndrome) Fibromyalgia Asthma Migraines Surgical History Hx of colonoscopy History of esophagogastroduodenoscopy (EGD) History of loop electrical excision procedure (LEEP) Hx of tubal ligation Family History Family History Mother Diabetes HTN (hypertension) Asthma Brother Asthma Social History Social History Household Members: Children Are you a primary out of school hours care worker to a significant other at home: No (children 15,10,8 Mother will assist with care) Do you presently have visiting nurse or other home services: No Alcohol intake: never Patient Tobacco Use Status: Never used Tobacco Substance Use Type: Marijuana Advance Directives: No Advance Directives Information Provided: No Do you have a plan to hurt others: No Plan Current occupational status: employed 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 Exam: General: Awake, alert in no distress Head: Normocephalic, atraumatic EENT: PERRL, Lids normal, sclera normal, conjunctiva normal, nose normal , ears normal, throat without erythema or exudates Neck: Supple, no adenopathy Lung: breath sounds symmetric, no wheezing, rales or rhonchi Chest: symmetric movement, nontender Heart: regular rate and rhythm, normal S1, S2 no murmurs or rubs Abdomen: soft, non-tender, nondistended, normal bowel sounds Back: no vertebral tenderness, no CVAT Extremities: no deformities, moves all extremities symmetrically , patient does have pain with palpation of the muscles of her thighs and calves bilaterally Neuro: Awake, alert, oriented, normal speech, cranial nerves intact, moves all extremities symmetrically Psych: Pleasant, cooperative Medical Decision Making Medical Decision Making MDM Narrative: 38-year-old female with a past medical history HTN, IBS, fibromyalgia, asthma, migraines, presenting to the ED complaining sudden onset of bilateral lower extremity pain which started this morning, she was had someone pain in the past and pain may have been related to flare-up of her fibromyalgia. She states that she took Flexeril, Tylenol, naproxen, ibuprofen and used ice with no relief for pain. Her pain is moderate to severe In intensity, has been constant since onset Differential diagnosis: Includes but is not limited to Viral syndrome, COVID- 19, influenza, RSV, fibromyalgia flare-up, anemia, electrolyte abnormalities Course: my interpretation patient's laboratory evaluation is as follows: CBC was normal. Serum bicarb low 21. COVID-19, influenza and RSV were negative. Patient's presentation and findings are consistent with a flare-up of her fibromyalgia and I did discuss this with her. The patient was advised to stop taking her Flexeril, ibuprofen and naproxen. She was prescribed prednisone 60 mg once a day for 5 days. She was also prescribed Robaxin 1000 mg, 1 pill 3 times a day as needed for muscle cramps and pain. I did tell her she can continue to take Tylenol with these to prescribed medications. Patient was given printed and verbal instructions and instructions and discharged home. Admission/Observation Consideration of admission/observation: Escalation of care including admission/observation considered ( Yes) Lab Data [facility] Lab Attestation statement: I reviewed the patient's lab results. 05/08/24 22:33 02/12/25 22:33 Labs: Lab Results 05/08/24 05/08/24 Range/Units 21:23 22:33 WBC 6.7 (4.8-10.8) X10*3/uL RBC 4.56 (4.20-5.50) X10*6/uL Hgb 13.1 (12.0-16.0) g/dl Hct 39.4 (37.0-47.0) % MCV 86.4 (80.0-98.0) fL MCH 28.7 (27.0-33.0) pg MCHC 33.2 (31.0-35.0) g/dl RDW 13.7 (11.0-16.0) % Plt Count 253 (160-400) X10*3/uL MPV 10.6 (9.4-12.3) fL Immature Gran % (Auto) 0.0 (0.0-0.4) % Neut % (Auto) 41.0 L (45-73) % Lymph % (Auto) 50.0 H (20-40) % Person % (Auto) 7.7 (2-11) % Eos % (Auto) 0.8 (0-4) % Baso % (Auto) 0.5 (0-2) % Lymph # (Auto) 3.3 (1.2-4.9) X10*3/uL Person # (Auto) 0.5 (0.1-1.2) X10*3/uL Eos # (Auto) 0.1 (0.0-0.4) X10*3/uL Baso # (Auto) 0.0 (0.0-0.2) X10*3/uL Abs Immat Gran (auto) 0.00 (0.00-0.03) X10*3/uL Absolute Neuts (auto) 2.7 (2.0-8.3) x10*3/uL Absolute Nucleated RBC 0.000 (0.0-0.012) X10*3/uL Nucleated RBC % (auto) 0.0 (0.0-0.2) /100WBC Sodium 137 (135-145) mmol/L Potassium 3.7 (3.3-5.1) mmol/L Chloride 107 (96-108) mmol/L Carbon Dioxide 21 L (22-29) mmol/L Anion Gap 13 (12-20) BUN 14 (9-16) mg/dL Creatinine 0.91 (0.5-1.4) mg/dL Estim Creat Clear Calc 95.2 Estimated GFR > 60 Random Glucose 103 (60-115) mg/dL Calcium 9.0 (8.4-10.2) mg/dL Total Bilirubin 0.8 (0.0-1.0) mg/dL AST 19 (5-31) U/L ALT 10 (0-31) U/L Alkaline Phosphatase 57 (39-117) U/L Total Protein 8.1 H (6.5-8.0) g/dL Albumin 4.5 (3.5-5.0) g/dL Influenza Type A (PCR) NEGATIVE (Negative) Influenza Type B (PCR) NEGATIVE (Negative) RSV RNA Qual (PCR) NEGATIVE (Negative) SARS-CoV-2 RNA (RT-PCR) NEGATIVE (Negative) Independent Historian Clinical information obtained from an independent historian. History obtained from or confirmed by: Spouse Prescription Management I considered prescription management with: Other ( anti-inflammatory steroid: Prednisone, muscle relaxant: Robaxin) Chronic Conditions Patient?s care impacted by: Other ( fibromyalgia) Discharge Plan Discharge Clinical Impression: Muscular cramp, Fibromyalgia muscle pain Patient Disposition: Home, Self-Care Instructions: Leg Cramps (ED) Additional Instructions: Your blood work was unremarkable. Your COVID-19, influenza and RSV were negative Your presentation is consistent with a flare-up of your fibromyalgia causing the cramping and muscle pain. Stop taking Flexeril, ibuprofen, and naproxen. Take prednisone 20 mg pills, 3 pills once a day for 5 days. While you ?are taking prednisone, do not take any NSAIDs (Motrin, Advil, ibuprofen, Aleve, naproxen). Take Robaxin 1000 mg, 1 pill 3 times a day as needed for muscle cramps and pain. This medicine is a muscle relaxant, do not take this with Flexeril (cyclobenzaprine). Follow-up with your doctor in 2 days. Please return to the emergency department if your symptoms get worse or if you develop any symptoms that are concerning to you. Prescriptions: New prednisone 20 mg tablet 60 mg PO DAILY 5 Days Qty: 15 0RF methocarbamol 500 mg tablet 1,000 mg PO Q8H PRN (Reason: pain, moderate) Qty: 24 0RF No Action famotidine [Acid Bearing Grinder (famotidine)] 20 mg tablet 20 mg PO BID Qty: 60 6RF propranolol 60 mg capsule,extended release 24 hr 60 mg PO BEDTIME Qty: 90 1RF sfztcplmnw-ipoufepiuoqit-culk [Fioricet] 50-300-40 mg capsule 1 cap PO Q8H PRN (Reason: pain) Qty: 3 0RF acetaminophen 500 mg tablet 1,000 mg PO QID PRN (Reason: pain) Qty: 30 0RF ibuprofen 600 mg tablet 600 mg PO Q6H PRN (Reason: pain) Qty: 20 0RF cyclobenzaprine 10 mg tablet 10 mg PO TID Qty: 10 0RF naproxen [Naprosyn] 500 mg tablet 500 mg PO BID Qty: 20 0RF gabapentin 100 mg capsule 100 mg PO TID Qty: 30 0RF sucralfate [Carafate] 1 gram tablet 1 g PO TID Qty: 20 0RF cyclobenzaprine 10 mg tablet 10 mg PO TID PRN (Reason: muscle spasm) Qty: 20 0RF ibuprofen 600 mg tablet 600 mg PO Q6H PRN (Reason: fever or pain) Qty: 30 0RF acetaminophen [Tylenol Extra Strength] 500 mg tablet 500 mg PO Q6H PRN (Reason: fever or pain) Qty: 14 0RF lidocaine [Lidoderm] 5 % adhesive patch,medicated 1 patch topical DAILY MDD remove after 12 hours PRN (Reason: pain) Qty: 30 0RF Rx Instructions: leave on most painful area for up to 12 hrs naproxen 500 mg tablet 500 mg PO BID PRN (Reason: pain) 10 Days Qty: 20 0RF cyclobenzaprine 5 mg tablet 5 mg PO Q8H PRN (Reason: pain (scale score 7-10)) 5 Days Qty: 14 0RF albuterol sulfate [Proventil HFA] 90 mcg/actuation HFA aerosol inhaler 1 inh inhalation QID montelukast [Singulair] 10 mg tablet 10 mg PO BEDTIME loratadine [Allergy Relief (loratadine)] 10 mg tablet 10 mg PO DAILY Excedrin Migraine 250-250-65 mg tablet 1 tab PO Q4-6H PRN (Reason: Headache) lisinopril 10 mg tablet 10 mg PO DAILY cholecalciferol (vitamin D3) [Vitamin D3] 50 mcg (2,000 unit) capsule 50 mcg PO DAILY pantoprazole 40 mg tablet,delayed release (DR/EC) 40 mg PO BID sumatriptan succinate 50 mg tablet 50 mg PO Q2-4H PRN (Reason: migraine headache) Qty: 14 3RF Rx Instructions: do not exceed 4 doses per 24 hrs fluticasone propion-salmeterol [Advair Diskus] 250-50 mcg/dose blister with device 1 ea inhalation BID topiramate 25 mg tablet 25 mg PO BEDTIME ondansetron 4 mg tablet,disintegrating 4 mg PO Q8H Qty: 10 0RF polyethylene glycol 3350 [Miralax] 17 gram/dose powder 17 g PO DAILY Qty: 510 2RF Metamucil 3.4 gram/5.4 gram powder 1 tbsp PO BID Qty: 660 2RF Rx Instructions: mix into at least 8 oz of water or juice before administering Stand Alone Forms: Work/School Release Interventions: ED Discharge Assessment Last Done: 05/09/24 07:41 Discharge Date/Time: 05/09/24 07:41 Print Language: Syriac
[2024-05-09 07:39] VITALS: BP 143/98; PULSE 77; RESP 16; TEMP 36.9; O2SAT 99
[2024-05-09 07:41] VITALS: BP 143/98; PULSE 77; RESP 16; TEMP 36.9; O2SAT 99
== END 2024-05-09 07:41 | disposition home or self-care (01) ==
PROVIDERS: Emergency Provider Emergency Medicine Emergency Medical Services; PCP Family Medicine
DX: M79.7 Fibromyalgia (principal); R25.2 Cramp and spasm; M25.552 Pain in left hip; M25.551 Pain in right hip; M79.605 Pain in left leg; M79.604 Pain in right leg; Z03.818 Encounter for observation for suspected exposure to other biological agents ruled out; Z79.899 Other long term (current) drug therapy
CPT/HCPCS: 0241U; 36415; 80053; 85025; 99282; 99283

== ENCOUNTER 2024-06-07 09:49 | Outpatient (REF) | payer MEDICAID, SELFPAY ==
--- NOTE | ~2024-06-07 | MM_ITS ---
EXAMINATION: MM DIAGNOSTIC DIGITAL BREAST TOMOSYNTHESIS, BILATERAL Right Limited ultrasound. CLINICAL INFORMATION: Fibroglandular tissue versus mass in the right lateral breast on recent CT abdomen April 2024. COMPARISON: Mammography: Comparison is made with relevant prior exams. TECHNIQUE: Digital breast mammography with tomosynthesis is performed in both the craniocaudal and mediolateral oblique views along with computer-aided detection (CAD). FINDINGS: The breasts are heterogeneously dense, which may obscure small masses (ACR BI-RADS breast composition Category c). There are no significant masses, abnormal calcifications, or other abnormalities. Targeted color Doppler ultrasound scanning in the lateral right breast 6-12 o'clock demonstrates normal fibroglandular breast tissue. There is no sonographic abnormality. Results are provided to the patient at time of visit by the technologist. MM/MM tomosynthesis diagnostic BI IMPRESSION: No mammographic or sonographic abnormality to account for the area seen on recent CT, likely represented normal fibronodular breast tissue. ASSESSMENT: BI-RADS BI-RADS 1 - Negative RECOMMENDATION: Mammo at 40 or earlier if clinically needed This patient's information was entered into a reminder system with a target due date for their next mammogram. Electronically signed by: Devora Caal DO 06/07/2024 11:39 AM EDT
--- OUTSIDE RECORDS SUMMARY | 2024-06-07 11:01 | XMS_ITS | Encounter Summary ---
Author Organization [employer] Address [address] [facility] [address] [place] [address] Care Team Providers Care Director Clinical Operations Name Role Phone Lu Estrada MD Primary Care Provider [phone] Reason for Visit * Reason Onset Date Comments Chart Prep 05/15/2024 Encounter Details Date Type Department Care Team ([facility] st Contact Info) Description 05/15/2024 Telephone [facility] MEDICINE [address] [place] [address] Lu Estrada MD [address] [place] [address] Chart Prep Social History Tobacco Use Types Packs/Day Years [...] the past 12 months, has t he [employer], gas, oil or water [employer] threatened to shut off services in your [...] encounter Miscellaneous Notes * Telephone Encounter - Concepcion Bond MA - 05/15/2024 2:07 PM EST Chart Prep Labs: done Images: not done Vaccines due: Updated Referrals: Radiology Pending appointment on n/a Screenings: Not Applicable Overdue care gaps: Oral Health documented in this encounter Plan of Treatment Upcoming Encounters Date Type Department Care Team (Late st Contact Info) Description 06/18/2024 9:45 AM EDT Office Visit [facility] OPTOMETRY [address] [place] [address] Aziza Mckoy, OD [address] [place] [address] 06/28/2024 10:00 AM EDT Medication Management [facility] MEDICINE [address] [place] [address] Praful Weiner, PharmD [address] [place] [address] 09/11/2024 10:00 AM EDT Office Visit [facility] ADULT DENTAL [address] [place] [address] Mc Ennisaris [address] [place] [address] documented as of this encounter Visit Diagnoses Not on filedocumented in this encounter Additional Health Concerns Assessment Noted Time PHQ-9 Depression Total Score: 5 01/22/20 24 3:06 PM EDT documented as of this encounter Care Teams Director Clinical Operations Relationship Specialty Start Date End Date Lu Estrada MD [address] [place] [address] PCP - General Family Medicine 03/27/18 documented as of this encounter
--- OUTSIDE RECORDS SUMMARY | 2024-06-07 11:01 | XMS_ITS | Encounter Summary ---
Author Organization [employer] Address [address] [facility] [address] [place] [address] Care Team Providers Care Corporate Communications Specialist Name Role Phone Lu Estrada MD Primary Care Provider [phone] Reason for Visit * Reason Onset Date Comments NO SHOW 05/21/2024 Encounter Details Date Type Department Care Team ([facility] st Contact Info) Description 05/21/2024 Telephone [facility] MEDICINE [address] [place] [address] Lu Estrada MD [address] [place] [address] NO SHOW Social History Tobacco Use Types Packs/Day Years [...] the past 12 months, has t he [employer], gas, oil or water company threatened to [...] encounter Miscellaneous Notes * Telephone Encounter - Darling Peña - 05/21/2024 4:18 PM EST PT NS FOR FU documented in this encounter Plan of Treatment Upcoming Encounters Date Type Department Care Team (Late st Contact Info) Description 06/18/2024 9:45 AM EDT Office Visit [facility] OPTOMETRY [address] [place] [address] Aziza Mckoy, OD [address] [place] [address] 06/28/2024 10:00 AM EDT Medication Management [facility] MEDICINE [address] [place] [address] Praful Weiner, PharmD [address] [place] [address] 09/11/2024 10:00 AM EDT Office Visit [facility] ADULT DENTAL [address] [place] [address] Heidi Ennis [address] [place] [address] documented as of this encounter Visit Diagnoses Not on filedocumented in this encounter Additional Health Concerns Assessment Noted Time PHQ-9 Depression Total Score: 5 01/22/20 24 3:06 PM EDT documented as of this encounter Care Teams Corporate Communications Specialist Relationship Specialty Start Date End Date Lu Estrada MD [address] [place] [address] PCP - General Family Medicine 03/27/18 documented as of this encounter
--- OUTSIDE RECORDS SUMMARY | 2024-06-07 11:01 | XMS_ITS | Encounter Summary ---
Author Organization [employer] Address [address] [facility] [address] [place] [address] Care Team Providers Care Financial Internship Name Role Phone Lu Estrada MD Primary Care Provider [phone] Encounter Details Date Type Department Care Team ([facility] st Contact Info) Description 06/07/2024 Population Health Risk Score [facility] ([facility]) Department [address] [facility] [address] [place] [address] Provider, Population Health Generic Social History Tobacco Use Types Packs/Day Years [...] Description 06/18/2024 9:45 AM EDT Office Visit [facility] OPTOMETRY [address] [place] [address] Aziza Mckoy, OD [address] [place] [address] 06/28/2024 10:00 AM EDT Medication Management [facility] MEDICINE [address] [place] [address] Praful Weiner, PharmD [address] [place] [address] 09/11/2024 10:00 AM EDT Office Visit [facility] ADULT DENTAL [address] [place] [address] Heidi Ennis [address] [place] [address] documented as of this encounter Visit Diagnoses Not on filedocumented in this encounter Additional Health Concerns Assessment Noted Time PHQ-9 Depression Total Score: 5 01/22/20 24 3:06 PM EDT documented as of this encounter Care Teams Financial Internship Relationship Specialty Start Date End Date Lu Estrada MD [address] [place] [address] PCP - General Family Medicine 03/27/18 documented as of this encounter
--- OUTSIDE RECORDS SUMMARY | 2024-06-07 11:01 | XMS_ITS | Clinical Summary ---
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 90 tablet 3 01/22/20 24 Active Fluticasone-Salm eterol (Advair Diskus) 250-50 MCG/ACT aerosol powder Inhale [...] Active cholecalciferol (D3 Super Strength) 50 MCG (1999 UT) capsule Take 1 capsule (50 mcg) by mouth Once per day. 90 capsule 3 01/22/20 24 Active pantoprazole (ProtoNix) 40 MG EC tabletIndication s:Gastroesophage al reflux disease, unspecified whether esophagitis present Take 1 tablet (40 mg) by mouth 2 times daily. Do not crush, chew, or split. 180 tablet 3 01/22/20 24 Active butalbital-aceta minophen-caffein e 50-325-40 MG tablet Take 1 tablet by mouth every 8 hours as needed for severe headache which does not improve with acetaminophen , ibuprofen, or naproxen. Maximum 3 tablet per month. 10 tablet 01/22/20 24 Active cyclobenzaprine (Flexeril) 10 MG tablet Take 1 tablet (10 mg) by mouth 3 times daily for 5 days. 15 tablet 03/06/20 24 Active gabapentin (Neurontin) 100 MG capsuleIndicatio ns:Fibromyalgia Take 3 capsules (300 mg) by mouth every 8 (eight) hours. 270 capsule 11 03/25/20 24 025 Active ondansetron (Zofran) 4 MG tabletIndication s:Chronic migraine without aura without status migrainosus, not intractable TAKE 1 TABLET BY MOUTH EVERY 8 HOURS NEEDED FOR NAUSEA 30 tablet 2 04/29/19 25 Active lisinopril 30 MG tabletIndication s:Primary hypertension Take 1 tablet (30 mg) by mouth Once per day. 90 tablet 3 04/29/19 25 Active albuterol (Ventolin HFA) 108 (90 Base) MCG/ACT inhalerIndicatio ns:Moderate persistent asthma without complication INHALE 2 PUFFS BY MOUTH EVERY 4 HOURS DO NOT EXCEED 8 PUFFS DAILY 18 g 2 06/06/19 25 Active albuterol 108 (90 Base) MCG/ACT inhalerIndicatio ns:Moderate persistent asthma without complication Take 2 puffs every 4 hours as needed for wheezing. Maximum Daily dose 8 puffs per day. 18 g 2 01/22/20 24 025 Discontinued Active Problems Problem Noted Date Diagnosed Date Left sided abdominal pain 04/29/2024 Assessment & Plan (04/30/2024 6:44 AM EST): - UA negative - most recent CT scan in Feb 2024 was unremarkable - since her [facility] [employer] surgery; advised to contact her surgeon or [facility] Atypical chest pain 07/13/2022 Enlarged tonsils 07/13/2022 [...] 4:48 PM EST): - previously seen by [facility] Clinician. - patient is not interested in behavioral health service -Pt was recommended to improve sleepy hygien and exercise during the day instead of taking medications Assessment & Plan (04/25/2022 4:35 PM EST): Was seen by [facility] Clinician. -Will check status of f/u. -Pt was recommended to improve sleepy hygien and exercise during the day instead of taking medications Dislocation of acromioclavicular joint 7 Migraine 05/04/2016 Assessment & Plan (04/28/2024 4:12 PM EST): -seen by [facility] neurologist in Apr 2019 -seen by [facility] neurology in Dec 2022 -04/23/22 Head [...] [place] neurologist in Apr 2019 -seen by [facility] neurology in Dec 2022 -04/23/22 Head [...] [place] neurologist in Apr 2019 -seen by [facility] neurology in Dec 2022 -04/23/22 Head [...] Encounters Date Type Department Care Team Description 06/07/[address] [facility] Risk Score [facility] () Department [address] [place] [address] [phone] Provider, Population Health Generic 06/05/2024 Refill [facility] [address] [place] [phone] Lu Estrada MD Moderate persistent asthma without complication 05/21/2024 Telephone [facility] [address] [place] [address] [phone] Lu Estrada MD NO SHOW 05/15/2024 Telephone [facility] [address] [place] [address] [phone] Lu Estrada MD Chart Prep 05/09/2024 Patient Outreach [facility] [address] [place] [address] [phone] Lu Estrada MD Transition Of Care (Tcm) 05/08/2024 Orders Only GENERIC EXTERNAL DATA DEPARTMENT Provider, Generic External Data 05/01/2024 Telephone [facility] [address] [place] [address] [phone] Ericka Edwards RN Results; Appointment Request 04/30/2024 Patient Outreach [facility] [address] [place] [address] [phone] Lu Estrada MD Transition Of Care (Tcm) 04/30/2024 Orders Only [facility] [address] [place] [address] [phone] Lu Estrada MD Abnormal CT of the abdomen (Primary Dx); Breast density 04/30/2024 Orders Only GENERIC EXTERNAL DATA DEPARTMENT Provider, Generic External Data 04/29/2024 10:15 AM EST Office Visit [address] [phone] Lu Estrada MD Primary hypertension (Primary Dx); Moderate persistent asthma without complication; Fibromyalgia; Chronic migraine without aura without status migrainosus, not intractable; Left sided abdominal pain; Chronic pain of left knee 04/29/2024 Travel 04/24/[address] [address] Jordyn Brewster MA chart prep 03/28/[address] [phone] Miriam Garcia RN NTTS 03/28/[address] [phone] Lu Estrada MD 03/28/2024 Orders Only [facility] [address] [place] [address] Elliot Antunez MD 03/25/2024 7:00 PM EST Office Visit [facility] [address] [place] [phone] Elliot Antunez MD Hypokalemia (Primary Dx); Sweating profusely; Fibromyalgia 03/25/2024 Travel 03/25/[address] [address] Lu Estrada MD Nurse Triage 03/15/[address] [phone] Lu Estrada MD No Show 03/15/[address] [phone] Lu Estrada MD 03/11/2024 2:30 PM EST Office Visit [facility] [address] [place] [phone] Heidi Ennis Dental calculus (Primary Dx) 03/11/2024 Telephone [facility] [address] [place] [address] Raymon Heidi from Last 3 Months Immunizations Name Administration Dates Next Due DTaP 11/04/2011, 2,05/31/1991,05/09,02/05/1988,1987 Hep A, Adult 12/26/2017 Hep B, Adolescent or Pediatric 11/16/1999,1998 Hep B, adult 12/26/2017 Hib (HbOC) 05/09/1990 IPV 01/26/1988 Influenza injectable quadriv alent IIV4 with preservative 12/26/2017,02/06/2017,04/21/2015 Influenza injectable quadriv alent preservative free 03/08/2023,04/25/2022,06/04/2019,04/05 Influenza, Split (incl. wade fied surface antigen) 03/18/2013 Influenza, seasonal, injecta ble, preservative free 01/22/2024 MMR 07/01/1991,05/31/1991 OPV 05/31/1991,05/09/1990,1987 Pfizer Covid-19 Vaccine 12+ 01/22/2024,0 04/26/2023,05/25/2021,04/27 Pneumococcal Conjugate PCV 20 08/23/2022 Pneumococcal Polysaccharide PPSV23 10/01/2008 Pneumococcal, Unspecified 10/01/2008 TD (adult), 2 Lf tetanus tox oid, preservative free, adsorbed 12/04/1998 Tdap 07/27/2021,08/14/2013,07/05/2010 Varicella 11/03/1998 Social History Tobacco Use Types [...] Description 06/18/2024 9:45 AM EDT Office Visit [facility] [address] [place] [address] Aziza Mckoy, OD [address] [place] [address] 06/28/2024 10:00 AM EDT Medication Management [facility] [address] [place] [address] Praful Weiner, PharmD [address] [place] [address] 09/11/2024 10:00 AM EDT Office Visit [facility] [address] [place] [address] Heidi Ennis [address] [place] [address] Health Maintenance Due Date Last Done Comments Family Planning (PISQ) 2002 Dental Oral Exam 03/10/2024 09/08/2023, 03/02/2022 Dental X-Ray: Bitewings 09/08/2024 09/08/2023, 03/02 Dental Prophylaxis 09/10/2024 03/11/2024, 0 09/08/2023, 09/22/2022, Additional history exists Alcohol/Substance Use Screening 01/21/2025 01/22/2024 Depression Screening 01/21/2025 01/22/2024, 01/22/20 24 SDOH Screening 01/21/2025 01/22/2024 Dental X-Ray: Full [...] history exists Influenza Vaccine Completed 01/22/2024, , 04/25/2022, Additional history exists HPV Vaccines Aged Out [...] Procedure Name Priority Date/Time Associated Diagnosis Comments COMPREHENSIVE METABOLIC PANEL Routine 05/08/2024 10:33 PM EST CBC WITH AUTO DIFFERENTIAL Routine 05/08/2024 10:33 PM EST SARS COV2/INFLUENZA A/B AND RSV RNA QL NAAT Routine 05/08/2024 9:[address] ABDOMEN PELVIS W CONTRAST Routine 04/30/2024 [...] 03/11/2024 2 :30 PM EST Dental calculus LIPID PANEL WITH REFLEX TO DIRECT LDL [...] Recently Relevant to Health Maintenance Results * (ABNORMAL) CBC auto differential (05/08/2024 10:33 PM EST) Only the most recent of3 resultswithin the time period is included. White Blood Count 6.7 4.8 - 10.8 X10*3/uL [facility] Red Blood Count 4.56 4.20 - 5.50 X10*6/uL [facility] Hemoglobin 13.1 12.0 - 16.0 g/dl [facility] Hematocrit 39.4 37.0 - 47.0 % [facility] Mean Corpuscular Volume 86.4 80.0 - 98.0 fL [facility] Mean Corpuscular Hemoglobin 28.7 27.0 - 33.0 pg [facility] Mean Corpuscular HGB Conc 33.2 31.0 - 35.0 g/dl [facility] Red Cell Distribution Width 13.7 11.0 - 16.0 % [facility] Platelet Count 253 160 - 400 X10*3/uL [facility] Mean Platelet Volume 10.6 9.4 - 12.3 fL [facility] Neutrophils Percent Auto 41.0(L) 45 - 73 % [facility] Imm Gran Pct Auto 0.0 0.0 - 0.4 % [facility] Lymphocytes Percent Auto 50.0(H) 20 - 40 % [facility] Monocytes Percent Auto 7.7 2 - 11 % [facility] Eosinophils Percent Auto 0.8 0 - 4 % [facility] Basophils Percent Auto 0.5 0 - 2 % [facility] NRBC Pct Auto 0.0 0.0 - 0.2 /100WBC [facility] Neutrophils Absolute Auto 2.7 2.0 - 8.3 x10*3/uL [facility] Imm Gran Abs Auto 0.00 0.00 - 0.03 X10*3/uL [facility] Lymphocytes Absolute Auto 3.3 1.2 - 4.9 X10*3/uL [facility] Monocytes Absolute Auto 0.5 0.1 - 1.2 X10*3/uL [facility] Eosinophils Absolute Auto 0.1 0.0 - 0.4 X10*3/uL [facility] Basophils Absolute Auto 0.0 0.0 - 0.2 X10*3/uL [facility] NRBC Abs Auto 0.000 0.0 - 0.012 X10*3/uL [facility] 05/08/2024 10:3 3 PM EST 05/08/2024 10:36 PM EST us Generic External Data Provider LAB BLOOD ORDERAB LES Final Result [facility] [address] [place] [phone] * (ABNORMAL) Comprehensive Metabolic Panel (05/08/2024 10:33 PM EST) Only the most recent of2 resultswithin the time period is included. Sodium 137 135 - 145 mmol/L [facility] Potassium 3.7 3.3 - 5.1 mmol/L [facility] Chloride 107 96 - 108 mmol/L [facility] Carbon Dioxide 21(L) 22 - 29 mmol/L [facility] Anion Gap 13 12 - 20 [facility] Urea Nitrogen (BUN) 14 9 - 16 mg/dL [facility] Creatinine, Serum 0.91 0.5 - 1.4 mg/dL [facility] Creatinine Clr Calc Pharmacy 95.2 [facility] Comment:Provided height and weight: 167.64 cm,87.5 kg.eGFR (calculated from the MDRD study equation) and eCrCl(calculated from the Cockcroft-Gault equation) are based ondifferent parameters and may not yield comparable results.If eCrCl result is absurd, please check patient'sheight/weight. Estimated Glomerular Filt Rate >60 [facility] Comment:Chronic Kidney Disea se: Estimated GFR < 60 mL/min/1.15d6[place] Kidney Disease: Estimated GFR < 15 mL/min/1.73m2 Glucose 103 60 - 115 mg/dL [facility] Calcium 9.0 8.4 - 10.2 mg/dL [facility] Bilirubin, Total 0.8 0.0 - 1.0 mg/dL [facility] Aspartate Amino Transferase 19 5 - 31 U/L [facility] Alanine Aminotransferase 10 0 - 31 U/L [facility] Total Protein 8.1(H) 6.5 - 8.0 g/dL [facility] Albumin Level 4.5 3.5 - 5.0 g/dL [facility] Alkaline Phosphatase 57 39 - 117 U/L [facility] 05/08/2024 10:3 3 PM EST 05/08/2024 10:36 PM EST us Generic External Data Provider LAB BLOOD ORDERAB LES Final Result [facility] [address] [place] [phone] * SARS-CoV-2 RNA, Influenza A/B, and RSV RNA, Ql NAAT (05/08/2024 9:23 PM EST) Influenza A PCR NEGATIVE Negative [facility] Influenza B PCR NEGATIVE Negative [facility] Resp Syncy Virus RNA Qual PCR NEGATIVE Negative [facility] SARS COV2 PCR NEGATIVE Negative [facility] Comment:All test results mus t be [...] use by authorized laboratories.Testing performed on the [employer] GeneXpert utilizingreal-time RT-PCR.All SARS CoV2 and positive influenza A/B results arereported to [facility]. 05/08/2024 9:23 PM EST 05/08/2024 9:25 PM EST us Generic External Data Provider LAB MICROBIOLOGY - GENERAL ORDERABLES Final Result [facility] [address] [place] [phone] [phone] * CT Abdomen Pelvis w/ Contrast (04/30/2024 5:22 AM EST) Anatomical Region Laterality Modality Body, Pelvis, Abdomen Computed T omography 04/30/2024 5:22 AM EST Narrative 04/30/2024 5:24 AM EST ? [facility] ?[address]. ?[place] [address] ? CT Scan Report ? Signed with Addenda ? Patient: Mckeon Ramsey,Shruti ?MR#: [id number] ?? [id number] ? : 1985 ?Acct:[id number] ? Age/Sex: 38 / F ?ADM Date: 02/04/25 ? Loc: HO.ED ? Attending Dr: ? Ordering Physician: Jennifer Santillan MD ?? Date of Service: 04/30/24 ?? Procedure(s): CT abdomen pelvis w IV con ?? Accession Number(s): [id number] ? cc: Jennifer Santillan MD; Lu Estrada MD ? Report Number: ?? [id number]: Total DLP = ??746.00 mGy-cm ?ADDENDUM ?? This document has been electronically signed by: Monie Jenkins MD on ?? 04/30/2024 05:22:49 ? ADDENDUM: ?? Receipt of this report by the clinical staff was confirmed with hhas, ?? David Rayo on Apr 30, 2024 [...] IV CON - 03/04/24 22:31 EST ?? CT/VT/SR - CT ABDOMEN PELVIS WO IV CON [...] ? DD/ 1 ? TD/TT: 04/30/24521 ? Risk Mgr: ? Procedure Note Tanmay Ocsaio - 04/30/[address] [place] [address] [address] Scan Report Signed with Addenda Patient: Ajay Winters#: [id number] : 1985Acct:[id number] Age/Sex: 38 / FADM Date: 04/30/24 Loc: HO.ED Attending Dr: Ordering Physician: Jennifer Santillan MD Date of Service: 04/30/24 Procedure(s): CT abdomen pelvis w IV con Accession Number(s): [id number] cc: Jennifer Santillan MD; Lu Estrada MD Report Number: [id number]: Total DLP = 746.00 mGy-cm ADDENDUM This document has been electronically signed by: Monie Jenkins MD on 04/30/2024 05:22:49 ADDENDUM: Receipt of this report by the clinical staff was confirmed with David Nick on Apr 30, 2024 05:25:00 EST. This document has been electronically signed by: Krishna Hionjosa on 04/30/2024 05:26:07 Addendum Dictated By: Monie Jenkins MD Addendum Signed By: <Electronically signed by Monie Jenkins MD in OV> 04/30/24526 Addendum Cosigned By: DD/ /19/521 TD/TT: 04/30/2407/19/525 CLINICAL HISTORY: L. abd flank pain x [address] abdomen and pelvis with contrast Comparison: CT/SR - CT ABDOMEN PELVIS W IV CON - 03/04/24 22:[address]/VT/SR - CT ABDOMEN PELVIS WO IV CON [...] in OV> 04/30/24522 DD/ 1 TD/TT: 04/30/24521 Risk Mgr: [facility] External Provider IMG CT PROCEDURES Edited Result - Final * Urinalysis, Complete, with Reflex to Culture (04/30/2024 1:09 AM EST) Color Urine Yellow [facility] Appearance Urine Clear [facility] PH 5.5 5.0 - 9.0 [facility] Glucose Urine UA Negative Negative mg/dL [facility] Urine Blood Negative Negative [facility] Specific [place] - Urine 1.025 1.005 - 1.025 [facility] Urine Protein Negative Neg-Trace mg/dL [facility] Urine Ketones Negative Negative mg/dL [facility] Nitrite Urine Negative Negative [facility] Leukocyte Esterase Urine Negative Negative [facility] RBC Urine 0-2 0 - 2 /HPF [facility] Urine WBC 0-5 0 - 5 /HPF [facility] Urine Squamous Epithelial Cell 3-5 0 - 2 /HPF [facility] Urine Bacteria Trace None Seen [facility] Hyaline Casts, Urine 0-2 0 - 2 /LPF [facility] 04/30/2024 1:09 AM EST 04/30/2024 1:13 AM EST Narrative [facility] - 04/30/2024 1:21 AM EST [id number], [employer] Generic External Data Provider LAB URINE ORDERAB LES Final Result [facility] [address] [place] [phone] * hCG, Total, Quantitative (04/30/2024 1:09 AM EST) Pathologist [facility] HCG Quantitative <2 mIU/mL [facility] Comment:Weeks post LMP Appro ximate hCG(Last Menstrual Period) Range (mIU/ml)3 - 4 weeks 9 - 1304 - 5 weeks 75 - 2,6005 - 6 weeks 850 - 20,8006 - 7 weeks 4000 - 100,2007 - 12 weeks 11,500 - 289,79271 - 16 weeks 18,300 - 137,58449 - 29 weeks (2nd trimester) 1,400 - 53,23466 - 41 weeks (3rd trimester) 940 - [...] ORDERAB LES Final Result Performing Organization Address City/[facility]/ZIP Co de Phone Number [facility] [address] [place] [phone] * (ABNORMAL) Lipase (04/30/2024 1:09 AM EST) [facility] Lipase 86(H) 8 - 78 U/L [facility] 04/30/2024 1:09 AM EST 04/30/2024 1:13 AM EST Generic External Data Provider LAB BLOOD ORDERAB LES Final Result Performing Organization Address [facility]/ZIP Co de Phone Number [facility] [address] [place] [phone] * POCT urinalysis dipstick manually resulted [...] Date Urine 04/29/2024 11:4 3 AM EST us Lu Estrada MD POINT OF CARE TEST ENTER/EDIT OR DERABLES Final Result * (ABNORMAL) Basic Metabolic Panel, Fasting (03/26/2024 11:09 AM EST) Pathologist [facility] Sodium 140 135 - 145 mmol/L [facility] Potassium 3.9 3.3 - 5.1 mmol/L [facility] Chloride 111(H) 96 - 108 mmol/L [facility] Carbon Dioxide 22 22 - 29 mmol/L [facility] Anion Gap 11(L) 12 - 20 [facility] Urea Nitrogen (BUN) 16 9 - 16 mg/dL [facility] Creatinine, Serum 0.82 0.5 - 1.4 mg/dL [facility] Estimated Glomerular Filt Rate >60 [facility] Comment:Chronic Kidney Disea se: Estimated GFR < 60 mL/min/1.49q4Kbyhgw Kidney Disease: Estimated GFR < 15 mL/min/1.73m2 Glucose Fasting 90 60 - 99 mg/dL [facility] Calcium 9.1 8.4 - 10.2 mg/dL [facility] Blood Venous blood specimen / Unknown 03/26/2024 11:09 AM EST 03/26/2024 1:25 PM EST us Elliot Antunez MD LAB BLOOD ORDERABLES Final Result [facility] [address] [place] [phone] * Vitamin B12/Folate, Serum Panel (03/26/2024 11:09 AM EST) Vitamin B12 326 200 - 900 pg/mL [facility] Comment:NORMAL 200-900 PG/ML INDETERMINATE 160-199 PG/ML DEFICIENT < 160 PG/ML Folate 7.1 > or = 4.0 ng/mL [facility] Comment:Reference Values:> o r = [...] BLOOD ORDERABLES Final Result Performing Organization Address City/[facility]/ZIP Co de Phone Number [facility] [address] [place] [phone] * TSH W/Reflex to FT4 (03/26/2024 11:09 AM EST) Pathologist [facility] TSH reflex Free T4 1.53 0.32 - 4.0 uIU/mL [facility] Blood Venous blood specimen / Unknown 03/26/2024 11:09 AM EST 03/26/2024 1:25 PM EST Elliot Antunez MD LAB BLOOD ORDERABLES Final Result [facility] [address] [place] [address] [phone] * Magnesium (03/26/2024 11:09 AM EST) Magnesium 2.4 1.6 - 2.6 mg/dL [facility] Blood Venous blood specimen / Unknown 03/26/2024 11:09 AM EST 03/26/2024 1:25 PM EST us Elliot Antunez MD LAB BLOOD ORDERABLES Final Result Performing Organization Address [facility]/ZIP Co de Phone Number [facility] [address] [place], [place] [phone] * POCT Rapid Covid-19 BinaxNOW (03/25/2024 7:20 PM EST) Pathologist [facility] Rapid COVID Ag Negative Swab 03/25/2024 7:20 PM EST us Elliot Antunez MD POINT OF CARE TEST ENTER/ED IT ORDERABLES Final Result * Basic Metabolic Panel (03/11/2024 3:21 PM EST) [facility] Sodium 138 135 - 145 mmol/L [facility] Potassium 3.9 3.3 - 5.1 mmol/L [facility] Chloride 107 96 - 108 mmol/L [facility] Carbon Dioxide 22 22 - 29 mmol/L [facility] Anion Gap 13 12 - 20 [facility] Urea Nitrogen (BUN) 14 9 - 16 mg/dL [facility] Creatinine, Serum 0.89 0.5 - 1.4 mg/dL [facility] Estimated Glomerular Filt Rate >60 [facility] Comment:Chronic Kidney Disea se: Estimated GFR < 60 mL/min/1.22w2Lhxikp Kidney Disease: Estimated GFR < 15 mL/min/1.73m2 Glucose 86 60 - 115 mg/dL [facility] Calcium 9.4 8.4 - 10.2 mg/dL [facility] Blood Venous blood specimen / Unknown 03/11/2024 3:21 PM EST 03/11/2024 4:23 PM EST us Lu Estrada MD LAB BLOOD ORDERABLES Final Resul t [facility] [address] [place] [phone] * (ABNORMAL) Lipid Panel with Reflex to Direct LDL (01/22/2024 3:20 PM EDT) Triglycerides 88 <150 mg/dL [facility] Comment:Desirable Triglyceri de: less than 150 mg/dLBorderline High Triglyceride 150-199 mg/dLHigh Triglyceride: 200-499 mg/dLVery High Triglyceride: greater than or equal to 5OO mg/dL Cholesterol 183 <200 mg/dL [facility] Comment:Desirable Cholestero l: less than 200 mg/dLBorderline High Cholesterol: 200-239 mg/dLHigh Cholesterol: greater than 239 mg/dL LDL Cholesterol Calculated 126(H) <100 mg/dL [facility] Comment:Desirable LDL: less than 100 mg/dLNear Optimal/Above Optimal LDL: 110- 129 mg/dLBorderline High LDL: 130-159 mg/dLHigh LDL: 160-189 mg/dLVery High LDL: greater than or equal to 190 mg/dL HDL Cholesterol 40(L) >40 mg/dL [facility] Comment:Desirable HDL: great er than 40 mg/dL Note: This HDL assay may give artificially low results in patients with liver disease. Blood 01/22/2024 3:20 PM EDT 01/22/2024 4:05 PM EDT us Lu Estrada MD LAB BLOOD ORDERABLES Final Resul t [facility] [address] [place] [phone] * ThinPrep Imaging Pap and HPV mRNA E6/E7 with Reflex to HPV 16,18/45 (12/05/2023 12:00 AM EDT) HPV 16 RNA [facility] HPV 18/45 RNA [facility] HPV nRNA E6/E7 Not Detected Not Detected [facility] Comment:Methodology: Transcr iption-Mediated AmplificationThis assay detects E6/E7 viral messenger RNA (mRNA) from 14high-risk HPV types (16,18,31,33,35,39,45,51,52,56,58,59,66,68).Cervical sources are required for HPV testing.If a vaginal source from a patient who has had atotal hysterectomy with removal of cervix wassubmitted, please contact the testing laboratoryfor alternative testing options.For additional information, please refer [email or web address].Ante Up/faq/[email or web address](This link if provided for information/educational purposes only.)THIS TEST WAS PERFORMED AT:[facility] [address] [phone] MILLS MD SOURCE: SEE NOTE [facility] Comment:None given Report Status: [facility] Clinical Information: SEE NOTE [facility] Comment:None given LMP: SEE NOTE [facility] Comment:NONE GIVEN Prev. PAP: SEE NOTE [facility] Comment:NONE GIVEN Prev. BX: SEE NOTE [facility] Comment:NONE GIVEN Statement Of Adequacy: SEE NOTE [facility] Comment:Satisfactory for tahmina luation.Endocervical/transformation zone componentpresent. General Categorization: [facility] Interpretation/Result: SEE NOTE [facility] Comment:Cytology Results: Ne gative for intraepitheliallesion or malignancy. Cytology Comment SEE NOTE [facility] Comment:This Pap test has be en evaluated with computerassisted technology. Program Coordinator Executive Education: SEE NOTE [facility] Comment:[place], [place](ASCP)CT scre ening location: [address] [address] Review Program Coordinator Executive Education: [facility] Pathologist [facility] PAP Infection [facility] See Note SEE NOTE [facility] Comment:EXPLANATORY NOTE:The Pap is a screening test for cervical cancer. It isnot a diagnostic test and is subject to false negativeand false positive results. It is most reliable when asatisfactory sample, regularly obtained, is submittedwith relevant clinical findings and history, and whenthe Pap result is evaluated along with historic andcurrent clinical information. 12/05/2023 12/05/2023 Narrative [facility] - 12/11/2023 1:12 PM EDT SEE SCANNED RESULTS IN EMR us Generic External Data Provider LAB PATHOLOGY ORD ERABLES Final Result [facility] [address] [place] [address] [phone] * HEPATITIS C AB W/REFL TO HCV RNA, QN, PCR (03/16/2020 4:32 PM EST) HEPATITIS C ANTIBODY NON-REACT [facility] NON-[facility] INDEX 0.02 <1.00 [facility] Comment: ?? HCV antibody was non-reactive. There is no laboratory ?? evidence of HCV infection. ?? In most cases, no further action is required. However, if recent HCV exposure is suspected, a test for HCV RNA (test code 43415) is suggested. ?? For additional information please refer to http://education.Ante Up/faq/QDP62s7 (This link is being provided for informational/ educational purposes only.) ?? 03/16/2020 4:32 PM EST Lu Estrada MD HISTORICAL/NON ORDERABLE LABS Fi nal Result Performing Organization Address City/[facility] Co de Phone Number [facility] [address] * HIV 1/2 ANTIGEN/ANTIBODY,FOURTH GENERATION W/RFL (03/16/2020 4:32 PM EST) HIV-1/2 ANTIGEN AND ANTIBODIES, 4TH GENERATION W/ REFLEX NON-REACT [facility] Comment: HIV-1 antigen and HIV-1/HIV-2 [...] ? For additional information please refer to http://education.Ante Up/faq/GDH204 (This link is being provided for informational/ educational purposes only.) ? The performance of this assay has not been clinically validated in patients less than 2 years old. ?? 03/16/2020 4:32 PM EST us Lu Estrada MD LAB BLOOD ORDERABLES Final Resul t [facility] Anywhere [address] from Last 3 Months or Most Recently Relevant to Health Maintenance [place] [address] [place] [address] C3 [facility] MEDICAID STAND ADULT Care Teams Industrial Energy Engineer Relationship Specialty Start Date End Date Lu Estrada MD [address] [place] [address] PCP - General Family Medicine 03/27/18
--- OUTSIDE RECORDS SUMMARY | 2024-06-07 11:01 | XMS_ITS | Encounter Summary ---
Author Organization [employer] Address [address] [facility] 7t [place] [address] Care Team Providers Care Visitor Services Technician Name Role Phone Lu Estrada MD Primary Care Provider [phone] Reason for Visit * Reason Comments Med Refill Encounter Details Date Type Department Care Team ([facility] st Contact Info) Description 06/05/2024 Refill [facility] MEDICINE [address] [place] [address] Lu Estrada MD [address] [place], [place] [phone] Moderate persistent asthma without complication Social History Tobacco Use Types Packs/Day Years [...] the past 12 months, has t he [employer], gas, oil or water [employer] threatened to shut off services in your [...] Description 06/18/2024 9:45 AM EDT Office Visit [facility] OPTOMETRY [address] [place] [address] TarkaAziza, OD [address] [place] [address] 06/28/2024 10:00 AM EDT Medication Management [facility] MEDICINE [address] [place] [address] Praful Weiner, PharmD [address] [place] [address] 09/11/2024 10:00 AM EDT Office Visit [facility] ADULT DENTAL [address] [place] [address] Heidi Ennis [address] [place] [address] documented as of this encounter Visit Diagnoses Diagnosis Moderate persistent asthma without complication documented in this encounter Additional Health Concerns Assessment Noted Time PHQ-9 Depression Total Score: 5 01/22/20 24 3:06 PM EDT documented as of this encounter Care Teams Visitor Services Technician Relationship Specialty Start Date End Date Lu Estrada MD [address] [place] [address] PCP - General Family Medicine 03/27/18 documented as of this encounter
--- OUTSIDE RECORDS SUMMARY | 2024-06-07 11:01 | XMS_ITS | Encounter Summary ---
Author Organization [employer] Address [address] [facility] 7t [place] [address] Care Team Providers Care Oven Unloader Name Role Phone Lu Estrada MD Primary Care Provider [phone] Encounter Details Date Type Department Care Team ([facility] Contact Info) Description 03/18/2022 Abstract [facility] ADULT DENTAL [address] [place] [address] Viet Kellogg DDS [address] [place] [address] Social History Tobacco Use Types Packs/Day Years [...] Upcoming Encounters Date Type Department Care Team ([facility] Contact Info) Description 06/18/2024 9:45 AM EDT Office Visit [facility] OPTOMETRY [address] [place] [address] Aziza Mckoy, OD [address] [place] [address] 06/28/2024 10:00 AM EDT Medication Management [facility] MEDICINE [address] [place] [address] Praful Weiner, PharmD [address] [place] [address] 09/11/2024 10:00 AM EDT Office Visit [facility] ADULT DENTAL [address] [place], [place] [phone] Heidi Ennis [address] [place] [address] documented as of this encounter Visit Diagnoses Not on filedocumented in this encounter Care Teams Oven Unloader Relationship Specialty Start Date End Date Lu Estrada MD [address] [place] [address] PCP - General Family Medicine 03/27/18 documented as of this encounter
--- OUTSIDE RECORDS SUMMARY | 2024-06-07 11:01 | XMS_ITS | Encounter Summary ---
Author Organization [employer] Address [address] [place] [address] 7t [place] [address] Care Team Providers Care Configuration Management Architect Name Role Phone Lu Estrada MD Primary Care Provider [phone] Reason for Visit * Reason Comments Med Refill Encounter Details Date Type Department Care Team (Late st Contact Info) Description 06/08/2022 Refill [facility] MEDICINE [address] [place] [address] Name, MD Danny [address] [place] [address] Social History Tobacco Use Types Packs/Day Years [...] Department Care Team (Late Contact Info) Description 06/18/2024 9:45 AM EDT Office Visit [facility] OPTOMETRY [address] [place] [address] Aziza Mckoy, OD [address] [place] [address] 06/28/2024 10:00 AM EDT Medication Management [facility] MEDICINE [address] [place] [address] Praful Weiner, PharmD [address] [place] [address] 09/11/2024 10:00 AM EDT Office Visit [facility] ADULT DENTAL [address] [place] [address] Heidi Ennis [address] [place] [address] documented as of this encounter Visit Diagnoses Not on filedocumented in this encounter Care Teams Configuration Management Architect Relationship Specialty Start Date End Date Lu Estrada MD [address] [place] [address] PCP - General Family Medicine 03/27/18 documented as of this encounter
--- OUTSIDE RECORDS SUMMARY | 2024-06-07 11:01 | XMS_ITS | Encounter Summary ---
Author Organization [employer] Address [address] [facility] [address] 7t [place] [address] Care Team Providers Care Art Librarian Name Role Phone Lu Estrada MD Primary Care Provider [phone] Encounter Details Date Type Department Care Team ([facility] Contact Info) Description 05/08/2024 Orders Only GENERIC EXTERNAL DATA DEPARTMENT [...] Description 06/18/2024 9:45 AM EDT Office Visit [facility] OPTOMETRY [address] [place] [address] TarAziza crawford, OD [address] [place] [address] 06/28/2024 10:00 AM EDT Medication Management [facility] MEDICINE [address] [place] [address] Praful Weiner, PharmD [address] [place] [address] 09/11/2024 10:00 AM EDT Office Visit [facility] ADULT DENTAL [address] [place] [address] Heidi Ennis [address] [place] [address] documented as of this encounter Procedures Procedure Name Priority Date/Time Associated Diagnosis Comments CBC WITH AUTO DIFFERENTIAL Routine 05/08/2024 10:33 PM EST COMPREHENSIVE METABOLIC PANEL Routine 05/08/2024 10:33 PM EST SARS COV2/INFLUENZA A/B AND RSV RNA QL NAAT Routine 05/08/2024 9:23 PM EST documented in this encounter Results * (ABNORMAL) Comprehensive Metabolic Panel (05/08/2024 10:33 PM EST) Sodium 137 135 - 145 mmol/L [facility] Potassium 3.7 3.3 - 5.1 mmol/L [facility] Chloride 107 96 - 108 mmol/L [facility] Carbon Dioxide 21(L) 22 - 29 mmol/L [facility] Anion Gap 13 12 - 20 [facility] Urea Nitrogen (BUN) 14 9 - 16 mg/dL [facility] Creatinine, Serum 0.91 0.5 - 1.4 mg/dL [facility] Creatinine Clr Calc Pharmacy 95.2 [facility] Comment:Provided height and weight: 167.64 cm,87.5 kg.eGFR (calculated from the MDRD study equation) and eCrCl(calculated from the Cockcroft-Gault equation) are based ondifferent parameters and may not yield comparable results.If eCrCl result is absurd, please check patient'sheight/weight. Estimated Glomerular Filt Rate >60 [facility] Comment:Chronic Kidney Disea se: Estimated GFR < 60 mL/min/1.77j3Pmxcwi Kidney Disease: Estimated GFR < 15 mL/min/1.73m2 Glucose 103 60 - 115 mg/dL [facility] Calcium 9.0 8.4 - 10.2 mg/dL [facility] Bilirubin, Total 0.8 0.0 - 1.0 mg/dL [facility] Aspartate Amino Transferase 19 5 - 31 U/L [facility] Alanine Aminotransferase 10 0 - 31 U/L [facility] Total Protein 8.1(H) 6.5 - 8.0 g/dL [facility] Albumin Level 4.5 3.5 - 5.0 g/dL [facility] Alkaline Phosphatase 57 39 - 117 U/L [facility] 05/08/2024 10:3 3 PM EST 05/08/2024 10:36 PM EST us Generic External Data Provider LAB BLOOD ORDERAB LES Final Result [facility] [address] [place] [address] [phone] * (ABNORMAL) CBC auto differential (05/08/2024 10:33 PM EST) White Blood Count 6.7 4.8 - 10.8 X10*3/uL [facility] Red Blood Count 4.56 4.20 - 5.50 X10*6/uL [facility] Hemoglobin 13.1 12.0 - 16.0 g/dl [facility] Hematocrit 39.4 37.0 - 47.0 % [facility] Mean Corpuscular Volume 86.4 80.0 - 98.0 fL [facility] Mean Corpuscular Hemoglobin 28.7 27.0 - 33.0 pg [facility] Mean Corpuscular HGB Conc 33.2 31.0 - 35.0 g/dl [facility] Red Cell Distribution Width 13.7 11.0 - 16.0 % [facility] Platelet Count 253 160 - 400 X10*3/uL [facility] Mean Platelet Volume 10.6 9.4 - 12.3 fL [facility] Neutrophils Percent Auto 41.0(L) 45 - 73 % [facility] Imm Gran Pct Auto 0.0 0.0 - 0.4 % [facility] Lymphocytes Percent Auto 50.0(H) 20 - 40 % [facility] Monocytes Percent Auto 7.7 2 - 11 % [facility] Eosinophils Percent Auto 0.8 0 - 4 % [facility] Basophils Percent Auto 0.5 0 - 2 % [facility] NRBC Pct Auto 0.0 0.0 - 0.2 /100WBC [facility] Neutrophils Absolute Auto 2.7 2.0 - 8.3 x10*3/uL [facility] Imm Gran Abs Auto 0.00 0.00 - 0.03 X10*3/uL [facility] Lymphocytes Absolute Auto 3.3 1.2 - 4.9 X10*3/uL [facility] Monocytes Absolute Auto 0.5 0.1 - 1.2 X10*3/uL [facility] Eosinophils Absolute Auto 0.1 0.0 - 0.4 X10*3/uL [facility] Basophils Absolute Auto 0.0 0.0 - 0.2 X10*3/uL [facility] NRBC Abs Auto 0.000 0.0 - 0.012 X10*3/uL [facility] 05/08/2024 10:3 3 PM EST 05/08/2024 10:36 PM EST us Generic External Data Provider LAB BLOOD ORDERAB LES Final Result [facility] [address] [place] [address] [phone] * SARS-CoV-2 RNA, Influenza A/B, and RSV RNA, Ql NAAT (05/08/2024 9:23 PM EST) Influenza A PCR NEGATIVE Negative [facility] Influenza B PCR NEGATIVE Negative [facility] Resp Syncy Virus RNA Qual PCR NEGATIVE Negative [facility] SARS COV2 PCR NEGATIVE Negative [facility] Comment:All test results mus t [...] use by authorized laboratories.Testing performed on the eCert GeneXpert utilizingreal-time RT-PCR.All SARS CoV2 and positive influenza A/B results arereported to [facility]. 05/08/2024 9:23 PM EST 05/08/2024 9:25 PM EST us Generic External Data Provider LAB MICROBIOLOGY - GENERAL ORDERABLES Final Result [facility] [address] [place] [address] [phone] documented in this encounter Visit Diagnoses Not on filedocumented in this encounter Additional Health Concerns Assessment Noted Time PHQ-9 Depression Total Score: 5 01/22/20 24 3:06 PM EDT documented as of this encounter Care Teams Art Librarian Relationship Specialty Start Date End Date Lu Estrada MD [address] [place] [address] PCP - General Family Medicine 03/27/18 documented as of this encounter
--- OUTSIDE RECORDS SUMMARY | 2024-06-07 11:01 | XMS_ITS | Encounter Summary ---
Author Organization [employer] Address [address] [facility] [address] [address] 7t [place] [address] Care Team Providers Care Manual Arts Therapy Teacher Name Role Phone Lu Estrada MD Primary Care Provider [phone] Encounter Details Date Type Department Care Team ([facility] st Contact Info) Description 05/29/2023 Abstract [facility] MEDICINE [address] [place] [address] Lu Estrada MD [address] [place] [address] Social History Tobacco Use Types Packs/Day Years [...] Description 06/18/2024 9:45 AM EDT Office Visit [facility] OPTOMETRY [address] [place] [address] Aziza Mckoy, OD [address] [place] [address] 06/28/2024 10:00 AM EDT Medication Management [facility] MEDICINE [address] [place] [address] Praful Weiner, PharmD [address] [place] [address] 09/11/2024 10:00 AM EDT Office Visit [facility] ADULT DENTAL [address] [place] [address] Heidi Ennis 230 [place] [address] documented as of this encounter Procedures Procedure [...] documented as of this encounter Care Teams Manual Arts Therapy Teacher Relationship Specialty Start Date End Date Lu Estrada MD [address] [place] [address] PCP - General Family Medicine 03/27/18 documented as of this encounter
--- OUTSIDE RECORDS SUMMARY | 2024-06-07 11:01 | XMS_ITS | Encounter Summary ---
Author Organization [employer] Address [address] [place] [address] 7t [place] [address] Care Team Providers Care Price Checker Name Role Phone Lu Estrada MD Primary Care Provider [phone] Reason for Visit * Reason Onset Date Comments Appointment Request 12/23/2022 Derm Encounter Details Date Type Department Care Team ([facility] st Contact Info) Description 12/23/2022 Telephone [facility] MEDICINE [address] [place] [address] Lu Estrada MD [address] [place] [address] Appointment Request (Derm ) Social History Tobacco [...] Description 06/18/2024 9:45 AM EDT Office Visit [facility] OPTOMETRY [address] [place] [address] Aziza Mckoy, OD [address] [place] [address] 06/28/2024 10:00 AM EDT Medication Management [facility] MEDICINE [address] [place] [address] Praful Weiner, PharmD [address] [place] [address] 09/11/2024 10:00 AM EDT Office Visit [facility] ADULT DENTAL [address] [place] [address] Raymon, Heidi [address] [place] [address] documented as of this encounter Visit Diagnoses Not on filedocumented in this encounter Care Teams Price Checker Relationship Specialty Start Date End Date Lu Estrada MD [address] [place] [address] PCP - General Family Medicine 03/27/18 documented as of this encounter
--- OUTSIDE RECORDS SUMMARY | 2024-06-07 11:01 | XMS_ITS | Encounter Summary ---
Author Organization [employer] Address [address] [place] [address] 7 [place] [address] Care Team Providers Care Merchandise Coordinator Name Role Phone Lu Estrada MD Primary Care Provider [phone] Reason for Visit * Reason Comments Med Refill Encounter Details Date Type Department Care Team (Late st Contact Info) Description 04/19/2022 Refill [facility] MEDICINE [address] [place] [address] Leatha Chong MD [address] [place] [address] Primary hypertension (Primary Dx) Social History Tobacco [...] Description 06/18/2024 9:45 AM EDT Office Visit [facility] OPTOMETRY [address] [place] [address] Aziza Mckoy, OD [address] [place] [address] 06/28/2024 10:00 AM EDT Medication Management [facility] MEDICINE [address] [place] [address] Praful Weiner, Anjali [address] [place] [address] 09/11/2024 10:00 AM EDT Office Visit [facility] ADULT DENTAL [address] [place] [address] Heidi Ennis [address] [place] [address] documented as of this encounter Visit Diagnoses Diagnosis Primary hypertension- Primary Unspecified essential hypertension documented in this encounter Care Teams Merchandise Coordinator Relationship Specialty Start Date End Date Lu Estrada MD [address] [place] [address] PCP - General Family Medicine 03/27/18 documented as of this encounter
--- OUTSIDE RECORDS SUMMARY | 2024-06-07 11:01 | XMS_ITS | Encounter Summary ---
Author Organization [employer] Address [address] [place] [address] 7t [place] [address] Care Team Providers Care Barrel Loader Name Role Phone Lu Estrada MD Primary Care Provider [phone] Encounter Details Date Type Department Care Team (Latest Contact Info) Description 07/08/2020 Abstract [facility] CONVERSIONS Dental, Provider, DDS Social History [...] Description 06/18/2024 9:45 AM EDT Office Visit [facility] OPTOMETRY [address] [place] [address] Aziza Mckoy, OD [address] [place] [address] 06/28/2024 10:00 AM EDT Medication Management [facility] MEDICINE [address] [place] [address] Praful Weiner, PharmD [address] [place] [address] 09/11/2024 10:00 AM EDT Office Visit [facility] ADULT DENTAL [address] [place] [address] Heidi Ennis [address] [place] [address] documented as of this encounter Visit Diagnoses Not on filedocumented in this encounter Care Teams Barrel Loader Relationship Specialty Start Date End Date Lu Estrada MD [address] [place] [address] PCP - General Family Medicine 03/27/18 documented as of this encounter
--- OUTSIDE RECORDS SUMMARY | 2024-06-07 11:01 | XMS_ITS | Encounter Summary ---
Author Organization [employer] Address [address] [facility] 7t [place] [address] Care Team Providers Care Medical Recruiter Name Role Phone Lu Estrada MD Primary Care Provider [phone] Reason for Visit * Reason Comments Med Refill Encounter Details Date Type Department Care Team ([facility] Contact Info) Description 04/22/2022 Refill [facility] MED & PEDS [address] [place], [place] [phone] Vandana Black, ANP [address] [place] [address] Social History Tobacco Use Types Packs/Day Years [...] Upcoming Encounters Date Type Department Care Team ([facility] Contact Info) Description 06/18/2024 9:45 AM EDT Office Visit [facility] OPTOMETRY [address] [place] [address] Leelee Aziza, OD [address] [place] [address] 06/28/2024 10:00 AM EDT Medication Management [facility] MEDICINE [address] [place] [address] Praful Weiner, PharmD [address] [place] [address] 09/11/2024 10:00 AM EDT Office Visit [facility] ADULT DENTAL [address] [place] [address] Heidi Ennis [address] [place] [address] documented as of this encounter Visit Diagnoses Not on filedocumented in this encounter Care Teams Medical Recruiter Relationship Specialty Start Date End Date Lu Estrada MD [address] [place] [address] PCP - General Family Medicine 03/27/18 documented as of this encounter
--- OUTSIDE RECORDS SUMMARY | 2024-06-07 11:01 | XMS_ITS | Encounter Summary ---
Author Organization [employer] Address [address] [place] [address] 7t [place] [address] Care Team Providers Care Bell Spinner Sousaphones Name Role Phone Lu Estrada MD Primary Care Provider [phone] Encounter Details Date Type Department Care Team (Late st Contact Info) Description 02/23/2022 Abstract [facility] ADULT DENTAL [address] [place] [address] Dental, Provider, DDS Social History Tobacco Use [...] Description 06/18/2024 9:45 AM EDT Office Visit [facility] OPTOMETRY [address] [place] [address] Aziza Mckoy, OD [address] [place] [address] 06/28/2024 10:00 AM EDT Medication Management [facility] MEDICINE [address] [place] [address] Praful Weiner, PharmD [address] [place] [address] 09/11/2024 10:00 AM EDT Office Visit [facility] ADULT DENTAL [address] [place] [address] Heidi Ennis [address] [place] [address] documented as of this encounter Procedures Procedure Name Priority Date/Time Associated Diagnosis Comments 14 O AMALGAM FILLING Routine 02/23/2022 12:00 AM EST documented in this encounter Visit Diagnoses Not on filedocumented in this encounter Care Teams Bell Spinner Sousaphones Relationship Specialty Start Date End Date Lu Estrada MD [address] [place] [address] PCP - General Family Medicine 03/27/18 documented as of this encounter
--- OUTSIDE RECORDS SUMMARY | 2024-06-07 11:01 | XMS_ITS | Encounter Summary ---
Author Organization [employer] Address [address] [facility] 7t [place] [address] Care Team Providers Care Antisubmarine Weapons Officer Name Role Phone Lu Estrada MD Primary Care Provider [phone] Reason for Visit * Reason Comments Med Refill Encounter Details Date Type Department Care Team ([facility] st Contact Info) Description 05/01/2023 Refill [facility] MEDICINE [address] [place], [place] [phone] Lorri Eduardo DO 230 [place], [place] [phone] Social History Tobacco Use Types Packs/Day Years [...] Description 06/18/2024 9:45 AM EDT Office Visit [facility] OPTOMETRY [address] [place] [address] Aziza Mckoy, OD [address] [place] [address] 06/28/2024 10:00 AM EDT Medication Management [facility] MEDICINE [address] [place] [address] Praful Weiner, PharmD [address] [place] [address] 09/11/2024 10:00 AM EDT Office Visit [facility] ADULT DENTAL [address] [place] [address] Mc Ennisaris 230 [place] [address] documented as of this encounter Visit Diagnoses Not on filedocumented in this encounter Additional Health Concerns Assessment Noted Time PHQ-9 Depression Total Score: 0 03/08/20 23 11:18 AM EST documented as of this encounter Care Teams Antisubmarine Weapons Officer Relationship Specialty Start Date End Date Lu Estrada MD [address] [place] [address] PCP - General Family Medicine 03/27/18 documented as of this encounter
--- OUTSIDE RECORDS SUMMARY | 2024-06-07 11:01 | XMS_ITS | Encounter Summary ---
Author Organization [employer] Address [address] [place] [address] 7t [place] [address] Care Team Providers Care Washerette Machine Operator Name Role Phone Lu Estrada MD Primary Care Provider [phone] Encounter Details Date Type Department Care Team (Late Contact Info) Description 10/17/[address] [facility] ADULT DENTAL [address] [place] [address] Raymon, Heidi [address] [place] [address] Social History Tobacco Use Types Packs/Day Years [...] Upcoming Encounters Date Type Department Care Team ([facility] Contact Info) Description 06/18/2024 9:45 AM EDT Office Visit [facility] OPTOMETRY [address] [place] [address] Aziza Mckoy, OD [address] [place] [address] 06/28/2024 10:00 AM EDT Medication Management [facility] MED[facility]INE [address] [place] [address] Praful Weiner, JovonD [address] [place] [address] 09/11/2024 10:00 AM EDT Office Visit [facility] ADULT DENTAL [address] [place] [address] Heidi Ennis [address] [place] [address] documented as of this encounter Visit Diagnoses Not on filedocumented in this encounter Care Teams Washerette Machine Operator Relationship Specialty Start Date End Date Lu Estrada MD 230 [place] [address] PCP - General Family Medicine 03/27/18 documented as of this encounter
--- OUTSIDE RECORDS SUMMARY | 2024-06-07 11:01 | XMS_ITS | Encounter Summary ---
Author Organization [employer] Address [address] [place] [address] 7t [place] [address] Care Team Providers Care Negative Cutter Name Role Phone Lu Estrada MD Primary Care Provider [phone] Encounter Details Date Type Department Care Team (Late Contact Info) Description 10/17/2022 Abstract [facility] ADULT DENTAL 230 [place] [address] Raymon, Heidi 230 [place] [address] Social History Tobacco Use Types Packs/Day Years [...] Upcoming Encounters Date Type Department Care Team ([facility] Contact Info) Description 06/18/2024 9:45 AM EDT Office Visit [facility] OPTOMETRY [address] [place] [address] Aziza Mckoy, OD 267 [place] [address] 06/28/2024 10:00 AM EDT Medication Management [facility] MEDICINE 230 [place] [address] Praful Weiner, JovonD [address] [place] [address] 09/11/2024 10:00 AM EDT Office Visit [facility] ADULT DENTAL [address] [place] [address] Heidi Ennis 230 [place] [address] documented as of this encounter Visit Diagnoses Not on filedocumented in this encounter Care Teams Negative Cutter Relationship Specialty Start Date End Date Lu Estrada MD [address] [place] [address] PCP - General Family Medicine 03/27/18 documented as of this encounter
--- OUTSIDE RECORDS SUMMARY | 2024-06-07 11:01 | XMS_ITS | Encounter Summary ---
Author Organization [employer] Address [address] [place] [address] 7t [place] [address] Care Team Providers Care Auger Mill Operator Name Role Phone Lu Estrada MD Primary Care Provider [phone] Encounter Details Date Type Department Care Team (Late st Contact Info) Description 04/04/2022 Abstract [facility] ADULT DENTAL [address] [place] [address] Viet Kellogg DDS [address] [place] [address] Social History Tobacco Use Types Packs/Day Years [...] Description 06/18/2024 9:45 AM EDT Office Visit [facility] OPTOMETRY [address] [place] [address] Aziza Mckoy, OD 267 [place] [address] 06/28/2024 10:00 AM EDT Medication Management [facility] MED[facility] [address] [place] [address] Praful Weiner, PharmD [address] [place] [address] 09/11/2024 10:00 AM EDT Office Visit [facility] ADULT DENTAL [address] [place] [address] Heidi Ennis [address] [place] [address] documented as of this encounter Visit Diagnoses Not on filedocumented in this encounter Care Teams Auger Mill Operator Relationship Specialty Start Date End Date Lu Estrada MD 230 [place] [address] PCP - General Family Medicine 03/27/18 documented as of this encounter
--- OUTSIDE RECORDS SUMMARY | 2024-06-07 11:01 | XMS_ITS | Encounter Summary ---
Author Organization [employer] Address [address] [place] [address] 7t [place] [address] Care Team Providers Care Meteorological Technician Name Role Phone Lu Estrada MD Primary Care Provider [phone] Encounter Details Date Type Department Care Team (Latest Contact Info) Description 01/01/2019 Abstract [facility] CONVERSIONS Dental, Provider, DDS Social History [...] Description 06/18/2024 9:45 AM EDT Office Visit [facility] OPTOMETRY 267 [place] [address] Aziza Mckoy, OD 267 [place] [address] 06/28/2024 10:00 AM EDT Medication Management [facility] MEDICINE [address] [place] [address] Praful Weiner, PharmD 230 [place] [address] 09/11/2024 10:00 AM EDT Office Visit [facility] ADULT DENTAL [address] [place] [address] Heidi Ennis [address] [place] [address] documented as of this encounter Visit Diagnoses Not on filedocumented in this encounter Care Teams Meteorological Technician Relationship Specialty Start Date End Date Lu Estrada MD [address] [place] [address] PCP - General Family Medicine 03/27/18 documented as of this encounter
--- OUTSIDE RECORDS SUMMARY | 2024-06-07 11:01 | XMS_ITS | Encounter Summary ---
Author Organization [employer] Address [address] [facility] 7t [place] [address] Care Team Providers Care Air Press Operator Name Role Phone Lu Estrada MD Primary Care Provider [phone] Reason for Visit * Reason Comments Transition Of Care (Tcm) Encounter Details Date Type Department Care Team ([facility] Contact Info) Description 05/09/2024 Patient Outreach [facility] MEDICINE [address] [place] [address] Lu Estrada MD [address] [place] [address] Transition Of Care (Tcm) Social History Tobacco [...] as of this encounter Progress Notes * Peg Up RN - 05/09/2024 2:27 PM EST Transition of Care Note Shruti Mckeon is going through a recent transition of care. * Drea Martin RN - 05/09/2024 2:27 PM EST Images from the original note were not included. Hospital Discharges and Admission for [facility] Type of Visit: Emergency Department Date of Admission/Visit: 04/30/24 (2:08 am) Date of Discharge: 04/30/24 (7:46 am) Facility[place] [facility] [place]: Bilatearl pain , no injury Disposition: Discharged Home Follow-Up Actions Follow-Up Needed: Provider appointment Follow-Up Outcome: Spoke to Patient Initial Contact Date: 05/01/24 Patient Contacted: Yes Patient Status: Unchanged Per [facility] [place]charge Paperwork Additional Instructions: Your blood work was unremarkable. Your COVID-19, influenza and RSV were negative Your presentation is consistent with a flare-up of your fibromyalgia causing the cramping and muscle pain. Stop taking Flexeril, ibuprofen, and naproxen. Take prednisone 20 mg pills, 3 pills once a day for 5 days. While you are taking prednisone, do nottake any NSAIDs (Motrin, Advil, ibuprofen, Aleve, naproxen). Take Robaxin 1000 mg, 1 pill 3 times a day as needed for muscle cramps and pain. This medicine is amuscle relaxant, do not take this with Flexeril (cyclobenzaprine). Follow-up with your doctor in 2 days. Please return to the emergency department if your symptoms get worse or if you develop any symptomsthat are concerning to you. The full discharge summary is Is available under encounters/interface Review Flowsheet [facility] Transition of Care Documentation Type of Visit Date of Admission/Visit Date of Discharge Facility Diagnosis Disposition 04/30/2024 10:43 AM Emergency Department 04/30/2024 2:08 am 04/30/2024 7:46 am [facility] right stomach pain Discharged Home 05/09/2024 2:27 PM - - - [facility] Bilatearl pain , no injury Discharged Home Recent Visits Date Type Provider Dept 04/29/24 Office Visit Lu Estrada MD [facility] Medicine 03/25/24 Office Visit Elliot Antunez MD [facility]In [facility] 03/08/24 Office Visit Marc Márquez MD [facility] Medicine 03/06/24 Office Visit Ameya Bolanos MD [facility] 01/22/24 Office Visit Lu Estrada MD [facility] Medicine 08/31/23 Office Visit JOSE Zuniga [facility] Medicine Showing recent visits within past 365 days with a meds authorizing provider and meeting all other requirements Future Appointments Date Type Provider Dept 05/21/24 Appointment Lu Estrada MD [facility] Medicine 05/22/24 Appointment Praful Weiner PharmD [facility] Showing future appointments within next 150 days with a meds authorizing provider and meeting all other requirements Patient was educated on hours of operation. documented in this encounter Plan of Treatment Upcoming Encounters Date Type Department Care Team (Late st Contact Info) Description 06/18/2024 9:45 AM EDT Office Visit [facility] OPTOMETRY [address] [place] [address] LorenayvetteAziza, OD [address] [place] [address] 06/28/2024 10:00 AM EDT Medication Management [facility] MEDICINE [address] [place] [address] Praful Weiner, PharmD [address] [place] [address] 09/11/2024 10:00 AM EDT Office Visit [facility] ADULT DENTAL [address] [place] [address] RaymonHeidi [address] [place] [address] documented as of this encounter Visit Diagnoses Not on filedocumented in this encounter Additional Health Concerns Assessment Noted Time PHQ-9 Depression Total Score: 5 01/22/20 24 3:06 PM EDT documented as of this encounter Care Teams Air Press Operator Relationship Specialty Start Date End Date Lu Estrada MD [address] [place] [address] PCP - General Family Medicine 03/27/18 documented as of this encounter
--- OUTSIDE RECORDS SUMMARY | 2024-06-07 11:01 | XMS_ITS | Encounter Summary ---
Author Organization [employer] Address [address] [place] [address] 7t [place] [address] Care Team Providers Care Gluer Machine Setup Operator Name Role Phone Lu Estrada MD Primary Care Provider [phone] Encounter Details Date Type Department Care Team (Late st Contact Info) Description 04/19/2022 Orders Only [facility] [address] [place] [address] Lu Estrada MD 230 [place] [address] Social History Tobacco Use Types Packs/Day Years [...] 9:45 AM EDT Office Visit [facility] [address] [place] [address] Aziza Mckoy, OD [address] [place] [address] 06/28/2024 10:00 AM EDT Medication Management [facility] [address] [place] [address] Praful Weiner, Anjali 230 [place] [address] 09/11/2024 10:00 AM EDT Office Visit [facility] ADULT DENT[facility] [address] [place] [address] Heidi Ennis [address] [place] [address] documented as of this encounter Visit Diagnoses Not on filedocumented in this encounter Care Teams Gluer Machine Setup Operator Relationship Specialty Start Date End Date Lu Estrada MD 230 [place] [address] PCP - General Family Medicine 03/27/18 documented as of this encounter
--- OUTSIDE RECORDS SUMMARY | 2024-06-07 11:01 | XMS_ITS | Encounter Summary ---
Author Organization [employer] Address [address] [facility] 7t [place] [address] Care Team Providers Care Electrician Front Name Role Phone Lu Estrada MD Primary Care Provider [phone] Reason for Visit * Reason Comments Med Refill Encounter Details Date Type Department Care Team (Late st Contact Info) Description 06/18/2022 Refill [facility] CHC MED & PEDS [address] [place] [address] Vandana Black, ANP 230 [place] [address] Social History Tobacco Use Types Packs/Day Years [...] Description 06/18/2024 9:45 AM EDT Office Visit [facility] OPTOMETRY [address] [place] [address] TarAziza crawford, OD [address] [place] [address] 06/28/2024 10:00 AM EDT Medication Management [facility] MEDICINE 230 [place] [address] Praful Weiner, PharmD 230 [place] [address] 09/11/2024 10:00 AM EDT Office Visit [facility] ADULT DENTAL 230 [place] [address] Raymon, Heidi [address] [place] [address] documented as of this encounter Visit Diagnoses Not on filedocumented in this encounter Care Teams Electrician Front Relationship Specialty Start Date End Date Lu Estrada MD 230 [place] [address] PCP - General Family Medicine 03/27/18 documented as of this encounter
--- OUTSIDE RECORDS SUMMARY | 2024-06-07 11:01 | XMS_ITS | Encounter Summary ---
Demographics Address [address] [facility] [address] [place] [address] Home Phone Work Phone Mobile Phone Email Address Preferred Language en Marital Status Single Mosque Affiliation Unknown Race Other Race Ethnic Group or Author Organization [employer] Address [address] [facility] 7t [place] [address] Care Team Providers Care Restaurant Line Server Name Role Phone Lu Estrada MD Primary Care Provider [phone] Encounter Details Date Type Department Care Team ([facility] Contact Info) Description 03/28/2024 Orders Only [facility] CHC MED & PEDS [address] [place] [address] Elliot Antunez MD 505 [place] [address] Social History Tobacco Use Types Packs/Day Years [...] Description 06/18/2024 9:45 AM EDT Office Visit [facility] OPTOMETRY [address] [place] [address] Aziza Mckoy, OD 267 [place] [address] 06/28/2024 10:00 AM EDT Medication Management [facility] MEDICINE 230 [place] [address] Praful Weiner, PharmD 230 [place] [address] 09/11/2024 10:00 AM EDT Office Visit [facility] ADULT DENTAL 230 [place] [address] Heidi Ennis 230 [place] [address] documented as of this encounter Visit Diagnoses Not on filedocumented in this encounter Additional Health Concerns Assessment Noted Time PHQ-9 Depression Total Score: 5 01/22/20 24 3:06 PM EDT documented as of this encounter Care Teams Restaurant Line Server Relationship Specialty Start Date End Date Lu Estrada MD [address] [place] [address] PCP - General Family Medicine 03/27/18 documented as of this encounter
--- OUTSIDE RECORDS SUMMARY | 2024-06-07 11:02 | XMS_ITS | Encounter Summary ---
Author Organization [employer] Address [address] [facility] 7t [place] [address] Care Team Providers Care Reducer Name Role Phone Lu Estrada MD Primary Care Provider [phone] Reason for Visit * Reason Comments Med Refill Encounter Details Date Type Department Care Team ([facility] st Contact Info) Description 03/09/2023 Refill [facility] MEDICINE 230 [place] [address] Lu Estrada MD 230 [place], [place] [phone] Social History Tobacco Use Types Packs/Day Years [...] Description 06/18/2024 9:45 AM EDT Office Visit [facility] OPTOMETRY [address] [place] [address] Aziza Mckoy, OD 267 [place] [address] 06/28/2024 10:00 AM EDT Medication Management [facility] MEDICINE 230 [place] [address] Praful Weiner, PharmD [address] [place] [address] 09/11/2024 10:00 AM EDT Office Visit [facility] ADULT DENTAL [address] [place] [address] Heidi Ennis 230 [place] [address] documented as of this encounter Visit Diagnoses Not on filedocumented in this encounter Additional Health Concerns Assessment Noted Time PHQ-9 Depression Total Score: 0 03/08/20 23 11:18 AM EST documented as of this encounter Care Teams Reducer Relationship Specialty Start Date End Date Lu Estrada MD [address] [place] [address] PCP - General Family Medicine 03/27/18 documented as of this encounter
--- OUTSIDE RECORDS SUMMARY | 2024-06-07 11:02 | XMS_ITS | Encounter Summary ---
Author Organization [employer] Address [address] [facility] 7t [place] [address] Care Team Providers Care Javascript Software Engineer Name Role Phone Lu Estrada MD Primary Care Provider [phone] Reason for Visit * Reason Onset Date Comments Letter for School/Work 04/27/2023 Encounter Details Date Type Department [facility] Description 04/27/2023 Telephone [facility] MEDICINE [address] [place] [address] Lu Estrada MD 230 [place], [place] [phone] Letter for School/Work Social History Tobacco Use [...] Description 06/18/2024 9:45 AM EDT Office Visit [facility] OPTOMETRY [address] [place] [address] TarAziza crawford, OD [address] [place] [address] 06/28/2024 10:00 AM EDT Medication Management [facility] MEDICINE 230 [place] [address] Praful Weiner, PharmD 230 [place] [address] 09/11/2024 10:00 AM EDT Office Visit [facility] ADULT DENTAL [address] [place] [address] Heidi Ennis [address] [place] [address] documented as of this encounter Visit Diagnoses Not on filedocumented in this encounter Additional Health Concerns Assessment Noted Time PHQ-9 Depression Total Score: 0 03/08/20 23 11:18 AM EST documented as of this encounter Care Teams Javascript Software Engineer Relationship Specialty Start Date End Date Lu Estrada MD 230 [place] [address] PCP - General Family Medicine 03/27/18 documented as of this encounter
--- OUTSIDE RECORDS SUMMARY | 2024-06-07 11:02 | XMS_ITS | Encounter Summary ---
Author Organization [employer] Address [address] [facility] [address] 7t [place] [address] Care Team Providers Care Electrical Lineworker Name Role Phone Lu Estrada MD Primary Care Provider [phone] Reason for Visit * Reason Comments Med Refill Encounter Details Date Type Department Care Team ([facility] st Contact Info) Description 03/09/2023 Refill [facility] CHC MED & PEDS [address] [place], [place] [phone] Vandana Black, ANP 230 [place] [address] Social History Tobacco Use Types Packs/Day Years [...] Description 06/18/2024 9:45 AM EDT Office Visit [facility] OPTOMETRY [address] [place] [address] Aziza Mckoy, OD 267 [place] [address] 06/28/2024 10:00 AM EDT Medication Management [facility] MEDICINE 230 [place] [address] Praful Weiner, PharmD 230 [place] [address] 09/11/2024 10:00 AM EDT Office Visit [facility] ADULT DENTAL 230 [place] [address] Heidi Ennis 230 [place] [address] documented as of this encounter Visit Diagnoses Not on filedocumented in this encounter Additional Health Concerns Assessment Noted Time PHQ-9 Depression Total Score: 0 03/08/20 23 11:18 AM EST documented as of this encounter Care Teams Electrical Lineworker Relationship Specialty Start Date End Date Lu Estrada MD [address] [place] [address] PCP - General Family Medicine 03/27/18 documented as of this encounter
--- OUTSIDE RECORDS SUMMARY | 2024-06-07 11:02 | XMS_ITS | Encounter Summary ---
Author Organization [employer] Address [address] [facility] 7t [place] [address] Care Team Providers Care Retail Marketing Coordinator Name Role Phone Lu Estrada MD Primary Care Provider [phone] Reason for Visit * Reason Onset Date Comments Appointment 07/05/2022 Encounter Details Date Type Department Care Team ([facility] st Contact Info) Description 07/05/2022 Telephone [facility] ADULT DENTAL 230 [place] [address] Raymon, Heidi 230 [place] [address] Appointment Social History Tobacco Use Types Packs/Day [...] appt. It is not currently requested in [facility] and I dont know if to request or not sure if the Nex [employer] list is blended with Epic list. documented in this encounter Plan of Treatment Upcoming Encounters Date Type Department Care Team (Late st Contact Info) Description 06/18/2024 9:45 AM EDT Office Visit [facility] OPTOMETRY [address] [place] [address] Aziza Mckoy, OD 267 [place] [address] 06/28/2024 10:00 AM EDT Medication Management [facility] MEDICINE 230 [place] [address] Praful Weiner, PharmD 230 [place] [address] 09/11/2024 10:00 AM EDT Office Visit [facility] ADULT DENTAL 230 [place] [address] Raymon, Heidi 230 [place] [address] documented as of this encounter Visit Diagnoses Not on filedocumented in this encounter Care Teams Retail Marketing Coordinator Relationship Specialty Start Date End Date Lu Estrada MD 230 [place] [address] PCP - General Family Medicine 03/27/18 documented as of this encounter
--- OUTSIDE RECORDS SUMMARY | 2024-06-07 11:02 | XMS_ITS | Encounter Summary ---
Author Organization [email or web address] Address [address] [place] [address] 7t [place] [address] Care Team Providers Care Recruitment Director Name Role Phone Lu Estrada MD Primary Care Provider [phone] Reason for Referral * Imaging (Routine) - Closed Specialty Diagnoses / Procedures Referred By [facility] Referred To Contact Radiology Diagnoses Abnormal CT of the abdomen Breast density Procedures BI Mammogram Diagnostic Tomosynthesis Right Lu Estrada MD 230 [place] [address] Phone: tel: fax: [facility] [address] [place] [address] Phone: tel: fax: Referral ID Status Reason Start Date Expiration Date Visits Re quested Visits Authorized [id number] Closed 04/30/2024 04/30/2025 1 1 Encounter Details Date Type Department Care Team (Late st Contact Info) Description 04/30/2024 Orders Only [facility] MEDICINE 230 [place], [place] [phone] Lu Estrada MD 230 [place], [place] [phone] Abnormal CT of the abdomen (Primary Dx); [...] Upcoming Encounters Date Type Department Care Team ([facility] st Contact Info) Description 06/18/2024 9:45 AM EDT Office Visit [facility] OPTOMETRY [address] [place] [address] Aziza Mckoy, OD [address] [place] [address] 06/28/2024 10:00 AM EDT Medication Management [facility] MEDICINE 230 [place] [address] rPaful Weiner, Anjali 230 [place] [address] 09/11/2024 10:00 AM EDT Office Visit [facility] ADULT DENTAL 230 [place], [place] [phone] Mc Ennisaris 230 [place] [address] Scheduled Orders Name Type Priority Associated Diagnoses [...] documented as of this encounter Care Teams Recruitment Director Relationship Specialty Start Date End Date Lu Estrada MD [address] [place] [address] PCP - General Family Medicine 03/27/18 documented as of this encounter
--- OUTSIDE RECORDS SUMMARY | 2024-06-07 11:02 | XMS_ITS | Encounter Summary ---
Author Organization [email or web address] Address [address] [facility] 7t [place] [address] Care Team Providers Care Crib Clerk Name Role Phone Lu Estrada MD Primary Care Provider [phone] Reason for Visit * Reason Comments Med Refill Encounter Details Date Type Department Care Team ([facility] st Contact Info) Description 03/09/2023 Refill [facility] MED[facility] [address] [place] [address] Lorri Eduardo DO 230 [place], [place] [phone] Social History Tobacco Use Types Packs/Day Years [...] EDT Office Visit [facility] OPTOMETRY [address] [place] [address] Aziza Mckoy, OD 267 [place] [address] 06/28/2024 10:00 AM EDT Medication Management [facility] MEDICINE [address] [place] [address] Praful Weiner, PharmD 230 [place] [address] 09/11/2024 10:00 AM EDT Office Visit [facility] ADULT DENTAL [address] [place] [address] Mc Ennisaris [address] [place] [address] documented as of this encounter Visit Diagnoses Not on filedocumented in this encounter Additional Health Concerns Assessment Noted Time PHQ-9 Depression Total Score: 0 03/08/20 23 11:18 AM EST documented as of this encounter Care Teams Crib Clerk Relationship Specialty Start Date End Date Lu Estrada MD [address] [place] [address] PCP - General Family Medicine 03/27/18 documented as of this encounter
== END 2024-06-07 09:50 | disposition home or self-care (01) ==
LOC: HO.MAMMO 09:49
PROVIDERS: PCP Family Medicine; Visit Provider Family Medicine
DX: R93.5 Abnormal findings on diagnostic imaging of other abdominal regions, including retroperitoneum (principal); R92.30 Dense breasts, unspecified
CPT/HCPCS: 76642; 77062; 77066

== ENCOUNTER → 2024-06-07 10:00 | Outpatient (BNV) | payer MEDICAID, SELFPAY | PROVIDERS: PCP Family Medicine; Visit Provider Internal Medicine | DX: N63.10 Unspecified lump in the right breast, unspecified quadrant (principal) | CPT/HCPCS: 76642; 77062; 77066 ==

== ENCOUNTER 2024-06-18 00:36 | Emergency (ER) | payer MEDICAID, SELFPAY ==
[2024-06-18 01:09] VITALS: BP 130/79; PULSE 67; RESP 18; TEMP 37; O2SAT 97; BMI 31.9
--- NOTE | 2024-06-18 01:45 | ED.ALLEREA ---
HPI - Allergic Reaction General Chief complaint: Allergic Reaction Stated complaint: allergies, hives Time Seen by Provider: 06/18/24 01:19 Source: patient Mode of arrival: ambulatory Limitations: no limitations History of Present Illness ED Provider: JACOB CORDOVA narrative: unknown cause but onset of abrupt hives and itching on chest, UE no airway issues not on JOSHUA-i MD complaint: allergic reaction and hives Onset (ago): hour(s) (1) Exposure: unknown Symptoms: rash and itching Severity: mild Treatment prior to arrival: none Previous Allergic Reaction History: none Related Data Home Medications ?Medication ?Instructions ?Recorded ?Confirmed albuterol sulfate 90 mcg/actuation 1 inh inhalation QID 01/15/20 12/05/23 aerosol inhaler (Proventil HFA) [id number]-miihewblkbyos-gcnjhybm 250 1 tab PO Q4-6H PRN Headache 01/15/20 12/05/23 mg-250 mg-65 mg tablet (Excedrin Migraine) loratadine 10 mg tablet (Allergy 10 mg PO DAILY 01/15/20 12/05/23 Relief (loratadine)) montelukast 10 mg tablet 10 mg PO BEDTIME 01/15/20 12/05/23 (Singulair) cholecalciferol (vitamin D3) 50 50 mcg PO DAILY 03/16/22 12/05/23 mcg (2,000 unit) capsule (Vitamin D3) lisinopril 10 mg tablet 10 mg PO DAILY 03/16/22 12/05/23 pantoprazole 40 mg tablet,delayed 40 mg PO BID 03/16/22 12/05/23 release fluticasone 250 mcg-salmeterol 50 1 ea inhalation BID 12/02/22 12/05/23 mcg/dose blistr powdr for inhalation (Advair Diskus) topiramate 25 mg tablet 25 mg PO BEDTIME 12/02/22 12/05/23 Previous Rx's ?Medication ?Instructions ?Recorded famotidine 20 mg tablet (Acid 20 mg PO BID #60 tabs 06/23/21 Rag Collector (famotidine)) xzdshaqvtz-qfuvuvsyyqrhm-lbfnojud 1 cap PO Q8H PRN pain #3 caps 08/09/21 50 mg-300 mg-40 mg capsule (Fioricet) sumatriptan succinate 50 mg tablet 50 mg PO Q2-4H PRN migraine 03/24/22 headache #14 tabs acetaminophen 500 mg tablet 1,000 mg (2 x 500 mg) PO QID PRN 08/25/22 pain #30 tabs ibuprofen 600 mg tablet 600 mg PO Q6H PRN pain #20 tabs 08/25/22 ondansetron 4 mg disintegrating 4 mg PO Q8H #10 tabs 12/02/22 tablet propranolol 60 mg capsule,24 60 mg PO BEDTIME #90 caps 12/19/22 hr,extended release polyethylene glycol 3350 17 17 g PO DAILY #510 grams 06/02/23 gram/dose oral powder (Miralax) psyllium husk 3.4 gram/5.4 gram 1 tbsp PO BID #660 grams 06/02/23 oral powder (Metamucil) sucralfate 1 gram tablet (Carafate) 1 g PO TID #20 tabs 09/13/23 cyclobenzaprine 10 mg tablet 10 mg PO TID PRN muscle spasm #20 11/08/23 tabs cyclobenzaprine 10 mg tablet 10 mg PO TID #10 tabs 01/13/24 naproxen 500 mg tablet (Naprosyn) 500 mg PO BID #20 tabs 01/13/24 ibuprofen 600 mg tablet 600 mg PO Q6H PRN fever or pain 02/19/24 #30 tabs gabapentin 100 mg capsule 100 mg PO TID #30 caps 03/04/24 acetaminophen 500 mg tablet 500 mg PO Q6H PRN fever or pain 04/30/24 (Tylenol Extra Strength) #14 tabs cyclobenzaprine 5 mg tablet 5 mg PO Q8H PRN pain (scale score 04/30/24 7-10) 5 days #14 tabs lidocaine 5 % topical patch 1 patch topical DAILY PRN pain #30 04/30/24 (Lidoderm) ea naproxen 500 mg tablet 500 mg PO BID PRN pain 10 days #20 04/30/24 tabs methocarbamol 500 mg tablet 1,000 mg (2 x 500 mg) PO Q8H PRN 05/09/24 pain, moderate #24 tabs prednisone 20 mg tablet 60 mg (3 x 20 mg) PO DAILY 5 days 05/09/24 #15 tabs epinephrine 0.3 mg/0.3 mL 0.3 mg (0.3 mL) IM Q10M PRN 06/18/24 injection, auto-injector anaphylaxis #2 ea loratadine 10 mg tablet 10 mg PO DAILY PRN allergic 06/18/24 (Allerclear) symptoms #30 tabs prednisone 20 mg tablet 40 mg (2 x 20 mg) PO DAILY 5 days 06/18/24 #10 tabs Allergies Allergy/AdvReac Type Severity Reaction Status Date / Time No Known Allergies Allergy Verified 06/18/24 01:10 [No Known Allergies*] Review of Systems Review of Systems: Constitutional : No Fever, No Chills ENT/Mouth : no oral swelling, No Hoarseness, No Swallowing Difficulty Eyes: No Eye Pain, No Swelling, No Redness Cardiovascular : No Chest Pain, No SOB Respiratory : No Cough, No Sputum, No Wheezing, No Smoke Exposure, No Dyspnea Gastrointestinal : No Nausea, No Vomiting, No Diarrhea, No abdominal Pain Genitourinary : No Dysuria, No Urinary Frequency, No Hematuria Musculoskeletal : No joint pain, No Myalgias, No Joint Swelling Skin : No Skin Lesions, positive rash Neuro : No Weakness, No Numbness, No Headache All other systems reviewed and are negative [facility] Past Medical History Attestation statement: The following information was validated with the patient. Source: old records reviewed Medical History Simple ovarian cyst Hypertension IBS (irritable bowel syndrome) Fibromyalgia Asthma Migraines Surgical History Hx of colonoscopy History of esophagogastroduodenoscopy (EGD) History of loop electrical excision procedure (LEEP) Hx of tubal ligation Family History Family History Mother Diabetes HTN (hypertension) Asthma Brother Asthma Social History Social History Household Members: Children Are you a primary memory care program director to a significant other at home: No (children 15,10,8 Mother will assist with care) Do you presently have visiting nurse or other home services: No Alcohol intake: never Patient Tobacco Use Status: Never used Tobacco Smoked in Last 30 Days: No Use of substances other than those prescribed or required for medical reasons: Yes Substance Use Type: Marijuana Advance Directives: No Advance Directives Information Provided: Yes Patient : No Current occupational status: employed 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 Oriented X3. No acute distress. Eyes: Pupils equal, round and reactive to light. ENT: Pharynx normal. No swelling Neck: Normal inspection. Neck supple. CVS: Normal heart rate and rhythm. Pulses normal. Respiratory: No respiratory distress. Breath sounds normal. Abdomen: Soft and nontender. Skin: Skin warm and dry. Normal skin color. mild hives on hands/wrists, chest Extremities: No lower extremity edema. No calf ttp Neuro: Oriented X 3. No motor deficit. No sensory deficit. CN2-12 intact Medications Administered Discontinued Medications Generic Name Dose Route Start Last Admin Trade Name Freq PRN Reason Stop Dose Admin Diphenhydramine HCl 25 mg 06/18/24 01:37 06/18/24 01:54 Diphenhydramine Hcl 25 Mg Capsule PO 06/18/24 01:38 25 mg ONCE ONE Administration Famotidine 20 mg 06/18/24 01:37 06/18/24 01:54 Famotidine 20 Mg Tablet PO 06/18/24 01:38 20 mg ONCE ONE Administration Prednisone 40 mg 06/18/24 01:37 06/18/24 01:53 Prednisone 20 Mg Tablet PO 06/18/24 01:38 40 mg ONCE ONE Administration Medical Decision Making Medical Decision Making MDM Narrative: 39 yo female with unexplained hives but she states it all started at the same time - no airway issues, VS stable will start on pepcid, benadryl, prednisone and epi pen. She has no angioedema or resp issues stable for DC Differential Diagnosis Differential Diagnoses: The differential diagnosis associated with the presentation includes allergy, scabies less likely given rapid onset Admission/Observation Consideration of admission/observation: Escalation of care including admission/observation considered feels better stable for DC External Record Review External record reviewed: Outpatient record Prescription Management I considered prescription management with: Other Discharge Plan Discharge Clinical Impression: Allergic reaction Qualifiers: Encounter type: initial encounter Qualified Code(s): T78.40XA - Allergy, unspecified, initial encounter Patient Disposition: Home, Self-Care Instructions: General Allergic Reaction (ED) Additional Instructions: return for any worsening symptoms or concerns please return for difficulty breathing, oral swelling or any other concerns carry epi pen with you only dose if you have oral swelling and feel like you cannot breathe Prescriptions: New prednisone 20 mg tablet 40 mg PO DAILY 5 Days Qty: 10 0RF epinephrine 0.3 mg/0.3 mL auto-injector 0.3 mg IM Q10M PRN (Reason: anaphylaxis) Qty: 2 0RF Rx Instructions: for 2 doses loratadine [Allerclear] 10 mg tablet 10 mg PO DAILY PRN (Reason: allergic symptoms) Qty: 30 0RF No Action famotidine [Acid Rag Collector (famotidine)] 20 mg tablet 20 mg PO BID Qty: 60 6RF propranolol 60 mg capsule,extended release 24 hr 60 mg PO BEDTIME Qty: 90 1RF dkljqhoxrb-temxgvuhummtn-sytk [Fioricet] 50-300-40 mg capsule 1 cap PO Q8H PRN (Reason: pain) Qty: 3 0RF acetaminophen 500 mg tablet 1,000 mg PO QID PRN (Reason: pain) Qty: 30 0RF ibuprofen 600 mg tablet 600 mg PO Q6H PRN (Reason: pain) Qty: 20 0RF cyclobenzaprine 10 mg tablet 10 mg PO TID Qty: 10 0RF naproxen [Naprosyn] 500 mg tablet 500 mg PO BID Qty: 20 0RF gabapentin 100 mg capsule 100 mg PO TID Qty: 30 0RF prednisone 20 mg tablet 60 mg PO DAILY 5 Days Qty: 15 0RF methocarbamol 500 mg tablet 1,000 mg PO Q8H PRN (Reason: pain, moderate) Qty: 24 0RF sucralfate [Carafate] 1 gram tablet 1 g PO TID Qty: 20 0RF cyclobenzaprine 10 mg tablet 10 mg PO TID PRN (Reason: muscle spasm) Qty: 20 0RF ibuprofen 600 mg tablet 600 mg PO Q6H PRN (Reason: fever or pain) Qty: 30 0RF acetaminophen [Tylenol Extra Strength] 500 mg tablet 500 mg PO Q6H PRN (Reason: fever or pain) Qty: 14 0RF lidocaine [Lidoderm] 5 % adhesive patch,medicated 1 patch topical DAILY MDD remove after 12 hours PRN (Reason: pain) Qty: 30 0RF Rx Instructions: leave on most painful area for up to 12 hrs naproxen 500 mg tablet 500 mg PO BID PRN (Reason: pain) 10 Days Qty: 20 0RF cyclobenzaprine 5 mg tablet 5 mg PO Q8H PRN (Reason: pain (scale score 7-10)) 5 Days Qty: 14 0RF albuterol sulfate [Proventil HFA] 90 mcg/actuation HFA aerosol inhaler 1 inh inhalation QID montelukast [Singulair] 10 mg tablet 10 mg PO BEDTIME loratadine [Allergy Relief (loratadine)] 10 mg tablet 10 mg PO DAILY Excedrin Migraine 250-250-65 mg tablet 1 tab PO Q4-6H PRN (Reason: Headache) lisinopril 10 mg tablet 10 mg PO DAILY cholecalciferol (vitamin D3) [Vitamin D3] 50 mcg (2,000 unit) capsule 50 mcg PO DAILY pantoprazole 40 mg tablet,delayed release (DR/EC) 40 mg PO BID sumatriptan succinate 50 mg tablet 50 mg PO Q2-4H PRN (Reason: migraine headache) Qty: 14 3RF Rx Instructions: do not exceed 4 doses per 24 hrs fluticasone propion-salmeterol [Advair Diskus] 250-50 mcg/dose blister with device 1 ea inhalation BID topiramate 25 mg tablet 25 mg PO BEDTIME ondansetron 4 mg tablet,disintegrating 4 mg PO Q8H Qty: 10 0RF polyethylene glycol 3350 [Miralax] 17 gram/dose powder 17 g PO DAILY Qty: 510 2RF Metamucil 3.4 gram/5.4 gram powder 1 tbsp PO BID Qty: 660 2RF Rx Instructions: mix into at least 8 oz of water or juice before administering Stand Alone Forms: Work/School Release Interventions: ED Discharge Assessment Last Done: 06/18/24 02:26 Discharge Date/Time: 06/18/24 02:27 Print Language: Yakut
[2024-06-18] MEDS: predniSONE 20 MG TABLET 40 MG PO (01:53)
[2024-06-18] MEDS: Famotidine 20 MG TABLET PO (01:54)
[2024-06-18] MEDS: diphenhydrAMINE HCL 25 MG CAPSULE PO (01:54)
[2024-06-18 02:25] VITALS: BP 112/65; PULSE 62; RESP 16; TEMP 36.3; O2SAT 97
[2024-06-18 02:26] VITALS: BP 112/65; PULSE 62; RESP 16; TEMP 36.3; O2SAT 97
== END 2024-06-18 02:27 | disposition home or self-care (01) ==
PROVIDERS: Emergency Provider Emergency Medicine; PCP Family Medicine
DX: T78.40XA Allergy, unspecified, initial encounter (principal); L50.9 Urticaria, unspecified; X58.XXXA Exposure to other specified factors, initial encounter; Z79.899 Other long term (current) drug therapy
CPT/HCPCS: 99283; 99284

== ENCOUNTER 2024-07-09 10:06 | Outpatient (AMB) | payer MEDICAID, SELFPAY ==
[2024-07-09 10:09] VITALS: BMI 31.8
--- NOTE | 2024-07-09 10:09 | MHC.OFFVIS ---
Vital Signs 07/09/24 10:09 Height 5 ft 6 in Weight 197 lb BMI 31.8 Intake Visit Reasons: OV-Rt Wrist Ganglion cyst Intake Note: Shruti is a 36 year old right hand dominant female who presents today for a follow up of her right dorsal ganglion cyst. The cyst was last aspirated on 07/20/21. States that cyst is growing back and would like to discuss surgical intervention. Allergies No Known Allergies [No Known Allergies*] Allergy (Verified 07/09/24 10:12) HPI HPI OV-Rt Wrist Ganglion cyst: Details: Shruti is a 39 year old woman who returns with complaints of her right dorsal wrist ganglion recurrence. This was aspirated on 07/20/20. She complains of a mass on the right dorsal wrist. This has been present for ~5 months now, and has been increasing in size. She says this is somewhat painful at times. She works at [employer]. [facility] Medical History Simple ovarian cyst Hypertension IBS (irritable bowel syndrome) Fibromyalgia Asthma Migraines Surgical History Hx of colonoscopy History of esophagogastroduodenoscopy (EGD) History of loop electrical excision procedure (LEEP) Hx of tubal ligation Family History Mother Diabetes HTN (hypertension) Asthma Brother Asthma Social History Household Members: Children Are you a primary caregiver assisted living to a significant other at home: No (children 15,10,8 Mother will assist with care) Do you presently have visiting nurse or other home services: No Alcohol intake: never Patient Tobacco Use Status: Never used Tobacco Substance Use Type: Marijuana Current occupational status: employed 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 Sexual orientation: Straight/Heterosexual Gender identity: Female Female Reproductive History Menstrual Age of Menarche: 15 Review of Systems Const All systems reviewed & are unremarkable except as noted in HPI and below Physical Exam Vital Signs: BMI result Body Mass Index 31.8 Const General: no acute distress and alert Orientation/consciousness: patient oriented x3 Neuro General: patient oriented x3 Extrem Other: Evaluation of Right Upper Extremity: The patient is alert, oriented, and in no acute distress Neuro: Median, Ulnar, Radial nerves motor and sensory intact and sensation is normal to the tips of all digits Vascular: Cap refill brisk ROM: She can make a fist and extend all her digits There is a mass on the dorsal aspect of her right wrist, over the radiocarpal joint. This measures ~2.5cm in diameter. Psych Appearance: grossly normal Affect: normal affect Attitude: cooperative Assessment & Plan Assessment & Plan (1) Ganglion cyst of dorsum of right wrist: Code(s): M67.431 - Ganglion, right wrist Category: Medical (2) Asthma: Code(s): J45.909 - Unspecified asthma, uncomplicated Category: Medical (3) Fibromyalgia: Code(s): M79.7 - Fibromyalgia Category: Medical Plan Assessment & Plan: 1. Right Dorsal wrist ganglion, recurrent S/P aspiration Date of procedure: 07/20/20 Measuring ~2.5cm in diameter I educated her about this condition I discussed operative and non-operative treatment options The patient would like to proceed with surgery The risks and benefits of operative treatment were discussed with the patient and the patient wishes to proceed with surgery. These risks include, but are not limited to risk of damage to blood vessels, nerves, tendons, infection, recurrence, incomplete relief of preoperative symptoms, persistent pain, possible need for further surgery and the risks associated with regional blocks and anesthesia. The plan is to take the patient to the operating room sometime in the next few weeks for the following procedures: 1. Right dorsal wrist ganglion excision, under general All of the preoperative paperwork including the consent was reviewed today. All the patient's questions were answered. The patient understands that they will be contacted by our summons server soon to schedule this procedure She denies Diabetes, blood thinners, heart, lung, kidney issues She has asthma & Fibromyalgia 2. Right Dorsal hand swelling No complaints today 3. Right upper extremity numbness No complaints today Scribed for Hollie Stauffer MD by David Hugo biomedical engineering director, on 07/09/24 at 10:40 AM, EST. Coding Level of Care Code Est Pt Level 4 (05683) Diagnoses Ganglion cyst of dorsum of right wrist M67.431 Asthma J45.909 Fibromyalgia M79.7
--- OUTSIDE RECORDS SUMMARY | 2024-07-09 11:49 | XMS_ITS | Encounter Summary ---
Author Organization [employer] Address [address] [place] [address] [address] [place] [address] Care Team Providers Care Telecommunication Operator Name Role Phone Lu Estrada MD Primary Care Provider [phone] Reason for Visit * Reason Onset Date Comments Appointment Request 12/23/2022 Derm Encounter Details Date Type Department Care Team ([facility] st Contact Info) Description 12/23/2022 Telephone [facility] MEDICINE [address] [place] [address] Lu Estrada MD [address] [place] [address] Appointment Request (Derm ) Social History Tobacco [...] Care Team (Late st Contact Info) Description 09/11/2024 10:00 AM EDT Office Visit [facility] ADULT DENTAL [address] [place], [place] [phone] Raymon, Heidi [address] [place] [address] documented as of this encounter Visit Diagnoses Not on filedocumented in this encounter Care Teams Telecommunication Operator Relationship Specialty Start Date End Date uL Estrada MD [address] [place], [place] [phone] PCP - General Family Medicine 03/27/18 documented as of this encounter
--- OUTSIDE RECORDS SUMMARY | 2024-07-09 11:49 | XMS_ITS | Encounter Summary ---
Author Organization [employer] Address [address] [facility] [address] [place] [address] Care Team Providers Care Inventory And Pricing Associate Name Role Phone Lu Estrada MD Primary Care Provider [phone] Encounter Details Date Type Department Care Team (Late Contact Info) Description 10/17/2022 Abstract [facility] ADULT DENTAL [address] [place], [place] [phone] Heidi Ennis [address] [place] [address] Social History Tobacco Use Types Packs/Day Years [...] Department Care Team (Late Contact Info) Description 09/11/2024 10:00 AM EDT Office Visit [facility] ADULT DENTAL [address] [place], [place] [phone] Heidi Ennis [address] [place] [address] documented as of this encounter Visit Diagnoses Not on filedocumented in this encounter Care Teams Inventory And Pricing Associate Relationship Specialty Start Date End Date Lu Estrada MD [address] [place] [address] PCP - General Family Medicine 03/27/18 documented as of this encounter
--- OUTSIDE RECORDS SUMMARY | 2024-07-09 11:49 | XMS_ITS | Encounter Summary ---
Author Organization [employer] Address [address] [facility] [address] [place] [address] Care Team Providers Care Lead Pharmacy Technician Name Role Phone Lu Estrada MD Primary Care Provider [phone] Encounter Details Date Type Department Care Team (Late Contact Info) Description 10/17/2022 Abstract [facility] ADULT DENTAL [address] [place], [place] [phone] Heidi Ennis [address] [place] [address] Social History Tobacco Use Types Packs/Day Years [...] Description 09/11/2024 10:00 AM EDT Office Visit [facility] ADULT DENTAL [address] [place], [place] [phone] Heidi Ennis [address] [place] [address] documented as of this encounter Visit Diagnoses Not on filedocumented in this encounter Care Teams Lead Pharmacy Technician Relationship Specialty Start Date End Date Lu Estrada MD [address] [place] [address] PCP - General Family Medicine 03/27/18 documented as of this encounter
--- OUTSIDE RECORDS SUMMARY | 2024-07-09 11:49 | XMS_ITS | Encounter Summary ---
Author Organization [employer] Address [address] [facility] [address] [place] [address] Care Team Providers Care Amusement Ride Inspector Name Role Phone Lu Estrada MD Primary Care Provider [phone] Reason for Visit * Reason Onset Date Comments Referral 06/24/2024 Encounter Details Date Type Department Care Team ([facility] st Contact Info) Description 06/24/2024 Telephone [facility] MEDICINE [address] [place] [address] Lu Estrada MD [address] [place] [address] Referral Social History Tobacco Use Types Packs/Day Years [...] Miscellaneous Notes * Telephone Encounter - Ericka Pan RN - 06/24/2024 4:22 PM EDT Returned call to pt who reports cyst on right hand, states that she had cyst in same spot in the past, previously cyst was removed in 2020. States current cyst has been present since last year but has grown, currently is very painful, bothers me at work and states it feels fluffy. She states PCP is aware but she forgot to ask about it at 04/30/24 appt. She is asking for referral to [facility] to get it removed. Advised her of [facility] extended hours tomorrow, pt verbalized understanding. * Telephone Encounter - Heidi Hannah - 06/24/2024 4:03 PM EDT Tc from pt requesting referral for orthopedic. Pt stated PCP is aware of cyst on hand If any questions or concerns contact pt at [phone] documented in this encounter Plan of Treatment Upcoming Encounters Date Type Department Care Team (Late st Contact Info) Description 09/11/2024 10:00 AM EDT Office Visit [facility] ADULT DENTAL [address] [place] [address] Heidi Ennis [address] [place] [address] documented as of this encounter Visit Diagnoses Not on filedocumented in this encounter Additional Health Concerns Assessment Noted Time PHQ-9 Depression Total Score: 5 01/22/20 24 3:06 PM EDT documented as of this encounter Care Teams Amusement Ride Inspector Relationship Specialty Start Date End Date Lu Estrada MD [address] [place] [address] PCP - General Family Medicine 03/27/18 documented as of this encounter
--- OUTSIDE RECORDS SUMMARY | 2024-07-09 11:49 | XMS_ITS | Encounter Summary ---
Author Organization [employer] Address [address] [place] [address] [address] [place] [address] Care Team Providers Care Web Software Engineer Name Role Phone Lu Estrada MD Primary Care Provider [phone] Encounter Details Date Type Department Care Team (Late st Contact Info) Description 04/04/[address] [facility] ADULT DENTAL [address] [place] [address] Viet Kellogg DDS [address] [place] [address] Social History Tobacco Use Types Packs/Day Years [...] Description 09/11/2024 10:00 AM EDT Office Visit [facility] ADULT DENTAL [address] [place] [address] Heidi Ennis [address] [place] [address] documented as of this encounter Visit Diagnoses Not on filedocumented in this encounter Care Teams Web Software Engineer Relationship Specialty Start Date End Date Lu Estrada MD [address] [place] [address] PCP - General Family Medicine 03/27/18 documented as of this encounter
--- OUTSIDE RECORDS SUMMARY | 2024-07-09 11:49 | XMS_ITS | Encounter Summary ---
Author Organization [employer] Address [address] [facility] [address] [place] [address] Care Team Providers Care Millinery Copyist Name Role Phone Lu Estrada MD Primary Care Provider Encounter Details Date Type Department Care Team ([facility] Contact Info) Description 03/18/2022 Abstract [facility]ULT [facility] [address] [place] [address] Viet Kellogg DDS [address] [place] [address] Social History Tobacco Use Types Packs/Day Years [...] Upcoming Encounters Date Type Department Care Team ([facility] Contact Info) Description 09/11/2024 10:00 AM EDT Office Visit [facility] [address] [place] [address] Heidi Ennis [address] [place] [address] documented as of this encounter Visit Diagnoses Not on filedocumented in this encounter Care Teams Millinery Copyist Relationship Specialty Start Date End Date Lu Estrada MD [address] [place] [address] PCP - General Family Medicine 03/27/18 documented as of this encounter
--- OUTSIDE RECORDS SUMMARY | 2024-07-09 11:49 | XMS_ITS | Encounter Summary ---
Author Organization [employer] Address [address] [place] [address] 7t [place] [address] Care Team Providers Care Senior Planner Name Role Phone Lu Estrada MD Primary Care Provider [phone] Reason for Referral * Consultation (Routine) - Authorized Specialty Diagnoses / Procedures [facility] To Contact Orthopaedic Surgery Diagnoses Ganglion cyst of wrist, right Lu Estrada MD [address] [place] [address] Phone: tel: fax: [facility] Referral ID Status Reason Start Date Expiration Date Visits Requested Visits Authorized [id number] Authorized Specialty Services Required 06/25/2024 06/25/2025 12 12 Encounter Details Date Type Department Care Team (Late st Contact Info) Description 06/24/2024 Orders Only [facility] MED[facility] [address] [place] [phone] Lu Estrada MD [address] [place], [place] [phone] Ganglion cyst of wrist, right (Primary Dx) Social History Tobacco Use Types [...] Description 09/11/2024 10:00 AM EDT Office Visit [facility]ULT [facility] [address] [place] [address] Raymon, Heidi [address] [place] [address] Scheduled Referrals Name Type Priority Associated Diagnoses Order Schedule Referral to Orthopaedic Surgery Outpatient Referral Routine Ganglion cyst of wrist, right Expected: 06/24/2024 (Approximate), Expires: 06/24/2025 documented as of this encounter Visit Diagnoses Diagnosis Ganglion cyst of wrist, right- Primary documented in this encounter Additional Health Concerns Assessment Noted Time PHQ-9 Depression Total Score: 5 01/22/20 24 3:06 PM EDT documented as of this encounter Care Teams Senior Planner Relationship Specialty Start Date End Date Lu Estrada MD [address] [place] [address] PCP - General Family Medicine 03/27/18 documented as of this encounter
--- OUTSIDE RECORDS SUMMARY | 2024-07-09 11:49 | XMS_ITS | Encounter Summary ---
Author Organization [employer] Address [address] [place] [address] [address] [place] [address] Care Team Providers Care Rock Dust Sprayer Name Role Phone Lu Estrada MD Primary Care Provider [phone] Encounter Details Date Type Department Care Team (Late st Contact Info) Description 04/19/2022 Orders Only [facility] [address] [place] [address] Lu Estrada MD [address] [place] [address] Social History Tobacco Use Types Packs/Day Years [...] Description 09/11/2024 10:00 AM EDT Office Visit [facility] ADULT DENTAL [address] [place] [address] Heidi Ennis [address] [place] [address] documented as of this encounter Visit Diagnoses Not on filedocumented in this encounter Care Teams Rock Dust Sprayer Relationship Specialty Start Date End Date Lu Estrada MD [address] [place] [address] PCP - General Family Medicine 03/27/18 documented as of this encounter
--- OUTSIDE RECORDS SUMMARY | 2024-07-09 11:49 | XMS_ITS | Encounter Summary ---
Author Organization [employer] Address [address] [place] [address] [address] [place] [address] Care Team Providers Care Medical Device Sales Consultant Name Role Phone Lu Estrada MD Primary Care Provider [phone] Reason for Visit * Reason Comments Med Refill Encounter Details Date Type Department Care Team (Late st Contact Info) Description 04/19/2022 Refill [facility] [address] [place] [address] Leatha Chong MD [address] [place], [place] [phone] Primary hypertension (Primary Dx) Social History Tobacco [...] Description 09/11/2024 10:00 AM EDT Office Visit [facility] ADULT DENTAL [address] [place] [address] Heidi Ennis [address] [place] [address] documented as of this encounter Visit Diagnoses Diagnosis Primary hypertension- Primary Unspecified essential hypertension documented in this encounter Care Teams Medical Device Sales Consultant Relationship Specialty Start Date End Date Lu Estrada MD [address] [place] [address] PCP - General Family Medicine 03/27/18 documented as of this encounter
--- OUTSIDE RECORDS SUMMARY | 2024-07-09 11:50 | XMS_ITS | Encounter Summary ---
Author Organization [employer] Address [address] [facility] [address] [place] [address] Care Team Providers Care Yarn Weigher Name Role Phone Lu Estrada MD Primary Care Provider [phone] Reason for Visit * Reason Comments Med Refill Encounter Details Date Type Department Care Team ([facility] st Contact Info) Description 03/09/2023 Refill [facility] [address] [place] [address] Lorri Eduardo DO [address] [place], [place] [phone] Social History Tobacco Use Types Packs/Day Years [...] 10:00 AM EDT Office Visit [facility] ADULT DENTAL [address] [place] [address] Raymon, Heidi [address] [place] [address] documented as of this encounter Visit Diagnoses Not on filedocumented in this encounter Additional Health Concerns Assessment Noted Time PHQ-9 Depression Total Score: 0 03/08/20 23 11:18 AM EST documented as of this encounter Care Teams Yarn Weigher Relationship Specialty Start Date End Date Lu Estrada MD [address] [place] [address] PCP - General Family Medicine 03/27/18 documented as of this encounter
--- OUTSIDE RECORDS SUMMARY | 2024-07-09 11:50 | XMS_ITS | Encounter Summary ---
Author Organization [email or web address] Address [address] [facility] [address] [place] [address] Care Team Providers Care Parachute Supervisor Name Role Phone Lu Estrada MD Primary Care Provider [phone] Encounter Details Date Type Department Care Team ([facility] st Contact Info) Description 05/29/2023 Abstract [facility] [address] [place] [address] Lu Estrada MD [address] [place] [address] Social History Tobacco Use Types Packs/Day Years [...] Description 09/11/2024 10:00 AM EDT Office Visit [facility] ADULT DENTAL [address] [place], [place] [phone] Raymon, Heidi [address] [place] [address] documented as of this encounter Procedures Procedure [...] documented as of this encounter Care Teams Parachute Supervisor Relationship Specialty Start Date End Date Lu Estrada MD [address] [place], [place] [phone] PCP - General Family Medicine 03/27/18 documented as of this encounter
--- OUTSIDE RECORDS SUMMARY | 2024-07-09 11:50 | XMS_ITS | Clinical Summary ---
Author Organization [employer] Address [address] [facility] [address] [place] [address] Care Team Providers Care Sales Enablement Manager Name Role Phone Lu Estrada MD Primary Care Provider [phone] Allergies No known active allergies Medications hydrocortisone (Anusol-HC) 2.5 % rectal cream Apply topically every 12 (twelve) hours. 2 Active hydrOXYzine pamoate (Vistaril) 25 MG capsule TAKE 1 CAPSULE BY MOUTH AT BEDTIME FOR SLEEP MAY TAKE 1 CAPSULE BY MOUTH UP TO THREE TIMES DAILY (DURING THE DAY) NEEDED FOR ANXIETY. 30 capsule 4 Active montelukast (Singulair) 10 MG tablet Take 1 tablet (10 mg) by mouth at bedtime. 90 tablet 3 4 Active Fluticasone-Salme terol (Advair Diskus) 250-50 MCG/ACT aerosol powder Inhale 1 puff 2 times daily. 1 each 11 4 Active loratadine (Claritin) 10 MG tablet TAKE 1 TABLET BY MOUTH EVERY DAY 90 tablet 3 4 Active lidocaine (Lidoderm) 5 % patch Apply 1 patch topically Once per day. Remove & discard patch within 12 hours or as directed by MD. 90 patch 3 4 Active cholecalciferol (D3 Super Strength) 50 MCG (1999 UT) capsule Take 1 capsule (50 mcg) by mouth Once per day. 90 capsule 3 4 Active pantoprazole (ProtoNix) 40 MG EC tabletIndications :Gastroesophageal reflux disease, unspecified whether esophagitis present Take 1 tablet (40 mg) by mouth 2 times daily. Do not crush, chew, or split. 180 tablet 3 4 Active butalbital-acetam inophen-caffeine 50-325-40 MG tablet Take 1 tablet by mouth every 8 hours as needed for severe headache which does not improve with acetaminophen, ibuprofen, or naproxen. Maximum 3 tablet per month. 10 tablet 4 Active cyclobenzaprine (Flexeril) 10 MG tablet Take 1 tablet (10 mg) by mouth 3 times daily for 5 days. 15 tablet 4 Active gabapentin (Neurontin) 100 MG capsuleIndication s:Fibromyalgia Take 3 capsules (300 mg) by mouth every 8 (eight) hours. 270 capsule 11 4 03/25/20 25 Active ondansetron (Zofran) 4 MG tabletIndications :Chronic migraine without aura without status migrainosus, not intractable TAKE 1 TABLET BY MOUTH EVERY 8 HOURS NEEDED FOR NAUSEA 30 tablet 2 5 Active lisinopril 30 MG tabletIndications :Primary hypertension Take 1 tablet (30 mg) by mouth Once per day. 90 tablet 3 5 Active albuterol (Ventolin HFA) 108 (90 Base) MCG/ACT inhalerIndication s:Moderate persistent asthma without complication INHALE 2 PUFFS BY MOUTH EVERY 4 HOURS DO NOT EXCEED 8 PUFFS DAILY 18 g 2 5 Active Active Problems Problem Noted Date Diagnosed Date Left sided abdominal pain 04/29/2024 Assessment & Plan (04/30/2024 6:44 AM EST): - UA negative - most recent CT scan in Feb 2024 was unremarkable - since her [employer] surgery; advised to contact her surgeon or [employer] Atypical chest pain 07/13/2022 Enlarged tonsils 07/13/2022 [...] Plan (04/25/2022 4:36 PM EST): -followed by [facility] GI continue famotidine -continue pantoprazole -avoid NSAIDS IBS (irritable bowel syndrome) 04/21/2022 Assessment & Plan (01/28/2024 4:45 PM EST): - followed by [facility] GI last seen in May 2023 - s/p EGD and colonoscopy -GI prescribed dicyclomine, simethicone, and Creon, but she is not taking it; recommended to discuss with GI specialist before discontinuing it -work on stress reduction Assessment & Plan (05/05/2023 6:42 AM EST): - followed by [facility] GI last seen in Nov 2022 - [...] (04/29/2022 6:27 PM EST): - followed by [facility] GI last seen on 03/24/22 -continue dicyclomine [...] 4:48 PM EST): - previously seen by [facility] Clinician. - patient is not interested in behavioral health service -Pt was recommended to improve sleepy hygien and exercise during the day instead of taking medications Assessment & Plan (04/25/2022 4:35 PM EST): Was seen by [facility] Clinician. -Will check status of f/u. -Pt was recommended to improve sleepy hygien and exercise during the day instead of taking medications Dislocation of acromioclavicular joint 7 Migraine 05/04/2016 Assessment & Plan (04/28/2024 4:12 PM EST): -seen by [facility] neurologist in Apr 2019 -seen by [facility] neurology in Dec 2022 -04/23/22 Head [...] Plan (01/28/2024 4:50 PM EST): -seen by [facility] neurologist in Apr 2019 -seen by [facility] neurology in Dec 2022 -04/23/22 Head [...] Plan (05/05/2023 6:51 AM EST): -seen by [facility] neurologist in Apr 2019 -seen by [facility] neurology in Dec 2022 -04/23/22 Head [...] amitripytline to impiramine for both IBS and ESPINSOA, but pt self- discontinued due to its [...] Encounters Date Type Department Care Team Description 06/24/2024 Orders Only [facility] [address] [place] [address] Lu Estrada MD Ganglion cyst of wrist, right (Primary Dx) 06/24/2024 Telephone [facility] [address] [place] [address] Lu Estrada MD Referral 06/18/2024 9:45 AM EDT Office Visit [facility] OPTOMETRY [address] [place] [address] TarAziza crawford, OD Dry eyes, bilateral (Primary Dx); Hypermetropia, bilateral 06/18/2024 Patient Outreach [facility] [address] [place] [address] Lu Estrada MD Transition Of Care (Tcm) 06/18/2024 Travel 06/07/2024 Population Health Risk Score [facility] () Department [address] [place] [address] [phone] Provider, Population Health Generic 06/05/2024 Refill [facility] [address] [place] [address] Lu Estrada MD Moderate persistent asthma without complication 05/21/2024 Telephone [facility] [address], [place] [phone] Lu Estrada MD NO SHOW 05/15/2024 Telephone [facility] [address] [place] [address] Lu Estrada MD Chart Prep 05/09/2024 Patient Outreach [facility] [address], [place] [phone] Lu Estrada MD Transition Of Care (Tcm) 05/08/2024 Orders Only GENERIC EXTERNAL DATA DEPARTMENT Provider, Generic External Data 05/01/[address] [address] Ericka Pan RN Results; Appointment Request 04/30/2024 Patient Outreach [address] [address] Lu Estrada MD Transition Of Care (Tcm) 04/30/2024 Orders Only [address] [phone] Lu Estrada MD Abnormal CT of the abdomen (Primary Dx); Breast density 04/30/2024 Orders Only GENERIC EXTERNAL DATA DEPARTMENT Provider, Generic External Data 04/29/2024 10:15 AM EST Office Visit [address] [address] Lu Estrada MD Primary hypertension (Primary Dx); Moderate persistent asthma without complication; Fibromyalgia; Chronic migraine without aura without status migrainosus, not intractable; Left sided abdominal pain; Chronic pain of left knee 04/29/2024 Travel 04/24/[address] [phone] Jordyn Brewster MA chart prep from Last 3 Months Immunizations Name Administration [...] injecta ble, preservative free 01/22/2024 MMR 07/01/1991,05/31/1991 OPV, Trivalent 05/31/1991,05/09/1990,1987 Pfizer Covid-19 Vaccine 12+ 01/22/2024,0 04/26/2023,05/25/2021,04/27 Pneumococcal Conjugate PCV 20 08/23/2022 Pneumococcal Polysaccharide PPSV23 10/01/2008 Pneumococcal, Unspecified 10/01/2008 TD (adult), 2 Lf tetanus tox oid, preservative free, adsorbed 12/04/1998 Tdap 07/27/2021,08/14/2013,07/05/2010 Varicella 11/03/1998 Family History Medical History Relation Name Comments Diabetes Mother Relation Name Status Comments Mother Social History Tobacco Use Types Packs/Day Years [...] Description 09/11/2024 10:00 AM EDT Office Visit [facility] ADULT DENTAL [address] [place] [address] Raymon, Heidi [address] [place] [address] Health Maintenance Due Date Last Done Comments Family Planning (PISQ) 2002 Dental Oral Exam 03/10/2024 09/08/2023, 03/02/2022 Dental X-Ray: Bitewings 09/08/2024 09/08/2023, 03/02 Dental Prophylaxis 09/10/2024 03/11/2024, 0 09/08/2023, 09/22/2022, Additional history exists Alcohol/Substance Use Screening 01/21/2025 01/22/2024 Depression Screening 01/21/2025 01/22/2024, 01/22/20 24 SDOH Screening 01/21/2025 01/22/2024 Dental X-Ray: Full Mouth 03/03/2025 03/02/2022 Tobacco Screening 06/18/2025 06/18/2024 Pap Smear 12/04/2026 12/05/2023, 10/25/2022 Cervical Cancer [...] Procedure Name Priority Date/Time Associated Diagnosis Comments BI US BREAST LIMITED RIGHT Routine 06/07/2024 10:44 AM EDT BI MAMMOGRAM DIAGNOSTIC TOMOSYNTHESIS BILATERAL Routine 06/07/2024 10:00 AM EDT COMPREHENSIVE METABOLIC PANEL Routine 05/08/2024 10:33 PM [...] 11:43 AM EST Left sided abdominal pain PROPHYLAXIS - ADULT Routine 03/11/2024 2 :30 [...] Recently Relevant to Health Maintenance Results * BI US Breast Limited Right (06/07/2024 10:44 AM EDT) Anatomical Region Laterality Modality Breast Right Ultrasound 06/07/2024 10:4 4 AM EDT Narrative 06/07/2024 11:42 AM EDT ? [facility] [place] ? [address] ?[place] [address] ? Ultrasound Report ? Signed ? Patient: Mckeon Ramsey,Shruti ?MR#: MM ?? [id number] ? : 1985 ?Acct:[id number] ? Age/Sex: 39 / F ?ADM Date: 06/07/24 ? Loc: HO.MAMMO ? Attending Dr: Lu Estrada MD ? Ordering Physician: Lu Estrada MD ?? Date of Service: 06/07/24 ?? Procedure(s): US breast RT limited mamm only ?? Accession Number(s): [id number] ? cc: Lu Estrada MD ? EXAMINATION: ?? MM DIAGNOSTIC DIGITAL BREAST TOMOSYNTHESIS, BILATERAL ?? Right Limited ultrasound. ? CLINICAL INFORMATION: ? Fibroglandular tissue versus mass in the right lateral breast on recent ?? CT abdomen April 2024. ? COMPARISON: ?? Mammography: Comparison is made with relevant prior exams. ? TECHNIQUE: ?? Digital breast mammography with tomosynthesis is performed in both the ?? craniocaudal and mediolateral oblique views along with computer-aided ?? detection (CAD). ? FINDINGS: ?? The breasts are heterogeneously dense, which may obscure small masses ?? (ACR BI-RADS breast composition Category c). ? There are no significant masses, abnormal calcifications, or other ?? abnormalities. ? Targeted color Doppler ultrasound scanning in the lateral right breast ?? 6-12 o'clock demonstrates normal fibroglandular breast tissue. There is ?? no sonographic abnormality. ? Results are provided to the patient at time of visit by the ?? technologist. ? US/US breast RT limited mamm only ?? IMPRESSION: ?? No mammographic or sonographic abnormality to account for the area seen ?? on recent CT, likely represented normal fibronodular breast tissue. ? ASSESSMENT: ? BI-RADS BI-RADS 1 - Negative ? RECOMMENDATION: ?? Mammo at 40 or earlier if clinically needed ? This patient's information was entered into a reminder system with a ?? target due date for their next mammogram. ? Electronically signed by: ??Devora Caal DO ??06/07/2024 11:39 AM EDT ? Dictated By: ?Devora Caal DO ? Signed By: ?<Electronically signed by Devora Caal, DO in OV> ? 06/07/24 1139 ? DD/ 1044 ? TD/TT: 06/07/24 1100 ? [employer] Operator: ? Procedure Note Donuriahwilmarinterpreter, Image - 06/07/2024 [facility] [address] [place] [address] Ultrasound Report Signed Patient: Ajay Winters#: MM [id number] : 1985Acct:[id number] Age/Sex: 39 / FADM Date: 06/07/24 Loc: LISA Attending Dr: Lu Estrada MD Ordering Physician: Lu Estrada MD Date of Service: 06/07/24 Procedure(s): US breast RT limited mamm only Accession Number(s): [id number] cc: Lu Estrada MD EXAMINATION: MM DIAGNOSTIC DIGITAL BREAST TOMOSYNTHESIS, BILATERAL Right Limited ultrasound. CLINICAL INFORMATION: Fibroglandular tissue versus mass in the right lateral breast on recent CT abdomen April 2024. COMPARISON: Mammography: Comparison is made with relevant prior exams. TECHNIQUE: Digital breast mammography with tomosynthesis is performed in both the craniocaudal and mediolateral oblique views along with computer-aided detection (CAD). FINDINGS: The breasts are heterogeneously dense, which may obscure small masses (ACR BI-RADS breast composition Category c). There are no significant masses, abnormal calcifications, or other abnormalities. Targeted color Doppler ultrasound scanning in the lateral right breast 6-12 o'clock demonstrates normal fibroglandular breast tissue. There is no sonographic abnormality. Results are provided to the patient at time of visit by the technologist. US/US breast RT limited mamm only IMPRESSION: No mammographic or sonographic abnormality to account for the area seen on recent CT, likely represented normal fibronodular breast tissue. ASSESSMENT: BI-RADS BI-RADS 1 - Negative RECOMMENDATION: Mammo at 40 or earlier if clinically needed This patient's information was entered into a reminder system with a target due date for their next mammogram. Electronically signed by: Devora Caal DO 06/07/2024 11:39 AM EDT Dictated By: Devora Caal DO Signed By: <Electronically signed by Devora Caal DO in OV> 06/07/24 1139 DD/ 1044 TD/TT: 06/07/24 1100 [employer]: Lu Estrada MD IM US PROCEDURES Final Result * BI Mammogram Diagnostic Tomosynthesis Bilateral (06/07/2024 10:00 AM EDT) Anatomical Region Laterality Modality Breast Bilateral Mammography 06/07/2024 10:0 0 AM EDT Narrative 06/07/2024 11:42 AM EDT ? [facility] [place] ? [address] ?[place] [address] ? Mammography Report ? Signed ? Patient: Mckeon Ramsey,Shruti ?MR#: MM ?? [id number] ? : 1985 ?Acct:[id number] ? Age/Sex: 39 / F ?ADM Date: 03/14/25 ? Loc: HO.MAMMO ? Attending Dr: Lu Estrada MD ? Ordering Physician: Lu Estrada MD ?Results: 1Negative ? Date of Service: 06/07/24 ?Follow Up: Mammo at 40 or e ?? arlier if clinically needed ? Procedure(s): MM tomosynthesis diagnostic BI ?? Accession Number(s): [id number] ? cc: Lu Estrada MD ? EXAMINATION: ?? MM DIAGNOSTIC DIGITAL BREAST TOMOSYNTHESIS, BILATERAL ?? Right Limited ultrasound. ? CLINICAL INFORMATION: ? Fibroglandular tissue versus mass in the right lateral breast on recent ?? CT abdomen April 2024. ? COMPARISON: ?? Mammography: Comparison is made with relevant prior exams. ? TECHNIQUE: ?? Digital breast mammography with tomosynthesis is performed in both the ?? craniocaudal and mediolateral oblique views along with computer-aided ?? detection (CAD). ? FINDINGS: ?? The breasts are heterogeneously dense, which may obscure small masses ?? (ACR BI-RADS breast composition Category c). ? There are no significant masses, abnormal calcifications, or other ?? abnormalities. ? Targeted color Doppler ultrasound scanning in the lateral right breast ?? 6-12 o'clock demonstrates normal fibroglandular breast tissue. There is ?? no sonographic abnormality. ? Results are provided to the patient at time of visit by the ?? technologist. ? MM/MM tomosynthesis diagnostic BI ?? IMPRESSION: ?? No mammographic or sonographic abnormality to account for the area seen ?? on recent CT, likely represented normal fibronodular breast tissue. ? ASSESSMENT: ? BI-RADS BI-RADS 1 - Negative ? RECOMMENDATION: ?? Mammo at 40 or earlier if clinically needed ? This patient's information was entered into a reminder system with a ?? target due date for their next mammogram. ? Electronically signed by: ??Devora Caal DO ??06/07/2024 11:39 AM EDT ? Dictated By: ?Devora Caal DO ? Signed By: ?<Electronically signed by Devora Caal, DO in OV> ? 06/07/24 1139 ? DD/ 1000 ? TD/TT: 06/07/24 1018 ? [employer]: ? Procedure Note Donotuseinterpreter, Image - 06/07/2024 [facility] [address] [place] [address] Mammography Report Signed Patient: Ajay Winters#: MM [id number] : 1985Acct:[id number] Age/Sex: 39 / FADM Date: 06/07/24 Loc: HO.MAMMO Attending Dr: Lu Estrada MD Ordering Physician: Lu Estrada MDResults: 1Negative Date of Service: 06/07/24Follow Up: Mammo at 40 or e arlier if clinically needed Procedure(s): MM tomosynthesis diagnostic BI Accession Number(s): [id number] cc: Lu Estrada MD EXAMINATION: MM DIAGNOSTIC DIGITAL BREAST TOMOSYNTHESIS, BILATERAL Right Limited ultrasound. CLINICAL INFORMATION: Fibroglandular tissue versus mass in the right lateral breast on recent CT abdomen April 2024. COMPARISON: Mammography: Comparison is made with relevant prior exams. TECHNIQUE: Digital breast mammography with tomosynthesis is performed in both the craniocaudal and mediolateral oblique views along with computer-aided detection (CAD). FINDINGS: The breasts are heterogeneously dense, which may obscure small masses (ACR BI-RADS breast composition Category c). There are no significant masses, abnormal calcifications, or other abnormalities. Targeted color Doppler ultrasound scanning in the lateral right breast 6-12 o'clock demonstrates normal fibroglandular breast tissue. There is no sonographic abnormality. Results are provided to the patient at time of visit by the technologist. MM/MM tomosynthesis diagnostic BI IMPRESSION: No mammographic or sonographic abnormality to account for the area seen on recent CT, likely represented normal fibronodular breast tissue. ASSESSMENT: BI-RADS BI-RADS 1 - Negative RECOMMENDATION: Mammo at 40 or earlier if clinically needed This patient's information was entered into a reminder system with a target due date for their next mammogram. Electronically signed by: Devora Caal DO 06/07/2024 11:39 AM EDT RP Dictated By: Devora Caal DO Signed By: <Electronically signed by Devora Caal DO in OV> 06/07/24 1139 DD/ 1000 TD/TT: 06/07/24 1018 [employer]: Lu Estrada MD IM BI PROCEDURES Final Result * (ABNORMAL) CBC auto differential (05/08/2024 10:33 PM EST) Only the most recent of2 resultswithin the time period is included. White Blood Count 6.7 4.8 - 10.8 X10*3/uL [facility] Red Blood Count 4.56 4.20 - 5.50 X10*6/uL [facility] Hemoglobin 13.1 12.0 - 16.0 g/dl [facility] Hematocrit 39.4 37.0 - 47.0 % [facility] Mean Corpuscular Volume 86.4 80.0 - 98.0 fL [facility] Mean Corpuscular Hemoglobin 28.7 27.0 - 33.0 pg [facility] Mean Corpuscular HGB Conc 33.2 31.0 - 35.0 g/dl [facility] Red Cell Distribution Width 13.7 11.0 - 16.0 % [facility] Platelet Count 253 160 - 400 X10*3/uL [facility] Mean Platelet Volume 10.6 9.4 - 12.3 fL [facility] Neutrophils Percent Auto 41.0(L) 45 - 73 % [facility] Imm Gran Pct Auto 0.0 0.0 - 0.4 % [facility] Lymphocytes Percent Auto 50.0(H) 20 - 40 % [facility] Monocytes Percent Auto 7.7 2 - 11 % [facility] Eosinophils Percent Auto 0.8 0 - 4 % [facility] Basophils Percent Auto 0.5 0 - 2 % [facility] NRBC Pct Auto 0.0 0.0 - 0.2 /100WBC [facility] Neutrophils Absolute Auto 2.7 2.0 - 8.3 x10*3/uL [facility] Imm Gran Abs Auto 0.00 0.00 - 0.03 X10*3/uL [facility] Lymphocytes Absolute Auto 3.3 1.2 - 4.9 X10*3/uL [facility] Monocytes Absolute Auto 0.5 0.1 - 1.2 X10*3/uL [facility] Eosinophils Absolute Auto 0.1 0.0 - 0.4 X10*3/uL [facility] Basophils Absolute Auto 0.0 0.0 - 0.2 X10*3/uL [facility] NRBC Abs Auto 0.000 0.0 - 0.012 X10*3/uL [facility] 05/08/2024 10:3 3 PM EST 05/08/2024 10:36 PM EST us Generic External Data Provider LAB BLOOD ORDERAB LES Final Result [facility] [address] [place] [address] [phone] * (ABNORMAL) Comprehensive Metabolic Panel (05/08/2024 10:33 PM EST) Only the most recent of2 resultswithin the time period is included. Sodium 137 135 - 145 mmol/L [facility] Potassium 3.7 3.3 - 5.1 mmol/L [facility] Chloride 107 96 - 108 mmol/L [facility] Carbon Dioxide 21(L) 22 - 29 mmol/L [facility] Anion Gap 13 12 - 20 [facility] Urea Nitrogen (BUN) 14 9 - 16 mg/dL [facility] Creatinine, Serum 0.91 0.5 - 1.4 mg/dL [facility] Creatinine Clr Calc Pharmacy 95.2 [facility] Comment:Provided height and weight: 167.64 cm,87.5 kg.eGFR (calculated from the MDRD study equation) and eCrCl(calculated from the Cockcroft-Gault equation) are based ondifferent parameters and may not yield comparable results.If eCrCl result is absurd, please check patient'sheight/weight. Estimated Glomerular Filt Rate >60 [facility] Comment:Chronic Kidney Disea se: Estimated GFR < 60 mL/min/1.32n9Oicdzk Kidney Disease: Estimated GFR < 15 mL/min/1.73m2 Glucose 103 60 - 115 mg/dL [facility] Calcium 9.0 8.4 - 10.2 mg/dL [facility] Bilirubin, Total 0.8 0.0 - 1.0 mg/dL [facility] Aspartate Amino Transferase 19 5 - 31 U/L [facility] Alanine Aminotransferase 10 0 - 31 U/L [facility] Total Protein 8.1(H) 6.5 - 8.0 g/dL [facility] Albumin Level 4.5 3.5 - 5.0 g/dL [facility] Alkaline Phosphatase 57 39 - 117 U/L [facility] 05/08/2024 10:3 3 PM EST 05/08/2024 10:36 PM EST us Generic External Data Provider LAB BLOOD ORDERAB LES Final Result [facility] [address] [place] [address] [phone] * SARS-CoV-2 RNA, Influenza A/B, and RSV RNA, Ql NAAT (05/08/2024 9:23 PM EST) Influenza A PCR NEGATIVE Negative [facility] Influenza B PCR NEGATIVE Negative [facility] Resp Syncy Virus RNA Qual PCR NEGATIVE Negative [facility] SARS COV2 PCR NEGATIVE Negative [facility] Comment:All test results mus t [...] use by authorized laboratories.Testing performed on the [employer] ([employer] GeneXpert utilizingreal-time RT-PCR.All SARS CoV2 and positive influenza A/B results arereported to [facility]. 05/08/2024 9:23 PM EST 05/08/2024 9:25 PM EST Generic External Data Provider LAB MICROBIOLOGY - GENERAL ORDERABLES Final Result [facility] [address] [place] [phone] * CT Abdomen Pelvis w/ Contrast (04/30/2024 5:22 AM EST) Anatomical Region Laterality Modality Body, Pelvis, Abdomen Computed T omography 04/30/2024 5:22 AM EST Narrative 04/30/2024 5:24 AM EST ? [facility] ?[address] ?[place] [address] ? CT Scan Report ? Signed with Addenda ? Patient: Mckeon Ramsey,Shruti ?MR#: MM ?? [id number] ? : 1985 ?Acct:[id number] ? Age/Sex: 38 / F ?ADM Date: 02/04/25 ? Loc: HO.ED ? Attending Dr: ? Ordering Physician: Jennifer Santillan MD ?? Date of Service: 04/30/24 ?? Procedure(s): CT abdomen pelvis w IV con ?? Accession Number(s): [id number] ? cc: Jennifer Santillan MD; Lu Estrada MD ? Report Number: ?? [id number]: Total DLP = ??746.00 mGy-cm ?ADDENDUM ?? This document has been electronically signed by: Monie Jenkins MD on ?? 04/30/2024 05:22:49 ? ADDENDUM: ?? Receipt of this report by the clinical staff was confirmed with proof coins inspector, ?? David Rayo on Apr 30, 2024 [...] CT ABDOMEN PELVIS W IV CON - /12/18 22:31 EST ?? CT/[place]/SR - CT ABDOMEN PELVIS WO IV CON [...] MD in OV> ?04/30/24 05 ? DD/ 05 ? TD/TT: 04/30/24521 ? [employer] Operator: ? Procedure Note Tanmay Ocasio - 04/30/[address] [address] [address] Scan Report Signed with Addenda Patient: Ajay Winters#: MM [id number] : 1985Acct:[id number] Age/Sex: 38 / FADM Date: 04/30/24 Loc: HO.ED Attending Dr: Ordering Physician: Jennifer Santillan MD Date of Service: 04/30/24 Procedure(s): CT abdomen pelvis w IV con Accession Number(s): [id number] cc: Jennifer Santillan MD; Lu Estrada MD Report Number: [id number]: Total DLP = 746.00 mGy-cm ADDENDUM This [...] W IV CON - 03/04/24 22:[address]/[facility] - CT ABDOMEN PELVIS WO IV CON [...] in OV> 04/30/24522 DD/ 1 TD/TT: 04/30/24521 [employer] Operator: [facility] External Provider IMG CT PROCEDURES Edited Result - Final * Urinalysis, Complete, with Reflex to Culture (04/30/2024 1:09 AM EST) Color Urine Yellow [facility] Appearance Urine Clear [facility] PH 5.5 5.0 - 9.0 [facility] Glucose Urine UA Negative Negative mg/dL [facility] Urine Blood Negative Negative [facility] Specific [place] - Urine 1.025 1.005 - 1.025 [facility] LABS Urine Protein Negative Neg-Trace mg/dL [facility] Urine Ketones Negative Negative mg/dL [facility] Nitrite Urine Negative Negative [facility] Leukocyte Esterase Urine Negative Negative [facility] RBC Urine 0-2 0 - 2 /HPF [facility] Urine WBC 0-5 0 - 5 /HPF [facility] Urine Squamous Epithelial Cell 3-5 0 - 2 /HPF [facility] Urine Bacteria Trace None Seen [facility] Hyaline Casts, Urine 0-2 0 - 2 /LPF [facility] 04/30/2024 1:09 AM EST 04/30/2024 1:13 AM EST Narrative [facility] - 04/30/2024 1:21 AM EST [id number], Clean Catch Generic External Data Provider LAB URINE ORDERAB LES Final Result [facility] [address] [place] [phone] * hCG, Total, Quantitative (04/30/2024 1:09 AM EST) HCG Quantitative <2 mIU/mL [facility] Comment:Weeks post LMP Appro ximate hCG(Last Menstrual Period) Range (mIU/ml)3 - 4 weeks 9 - 1304 - 5 weeks 75 - 2,6005 - 6 weeks 850 - 20,8006 - 7 weeks 4000 - 100,2007 - 12 weeks 11,500 - 289,55602 - 16 weeks 18,300 - 137,72704 - 29 weeks (2nd trimester) 1,400 - 53,68616 - 41 weeks (3rd trimester) 940 - [...] ORDERAB LES Final Result Performing Organization Address City/[facility]/ZIP Co de Phone Number [facility] [address] [place] [phone] * (ABNORMAL) Lipase (04/30/2024 1:09 AM EST) Pathologist [facility] Lipase 86(H) 8 - 78 U/L [facility] 04/30/2024 1:09 AM EST 04/30/2024 1:13 AM EST Generic External Data Provider LAB BLOOD ORDERAB LES Final Result Performing Organization Address [facility]/ZIP Co de Phone Number [facility] [address] [place] [phone] * POCT urinalysis dipstick manually resulted [...] ENTER/EDIT OR DERABLES Final Result * (ABNORMAL) Lipid Panel with Reflex to Direct LDL (01/22/2024 3:20 PM EDT) Triglycerides 88 <150 mg/dL [facility] Comment:Desirable Triglyceri de: less than 150 mg/dLBorderline High Triglyceride 150-199 mg/dLHigh Triglyceride: 200-499 mg/dLVery High Triglyceride: greater than or equal to 5OO mg/dL Cholesterol 183 <200 mg/dL [facility] Comment:Desirable Cholestero l: less than 200 mg/dLBorderline High Cholesterol: 200-239 mg/dLHigh Cholesterol: greater than 239 mg/dL LDL Cholesterol Calculated 126(H) <100 mg/dL [facility] Comment:Desirable LDL: less than 100 mg/dLNear Optimal/Above Optimal LDL: 110- 129 mg/dLBorderline High LDL: 130-159 mg/dLHigh LDL: 160-189 mg/dLVery High LDL: greater than or equal to 190 mg/dL HDL Cholesterol 40(L) >40 mg/dL [facility] Comment:Desirable HDL: great er than 40 mg/dL Note: This HDL assay may give artificially low results in patients with liver disease. Blood 01/22/2024 3:20 PM EDT 01/22/2024 4:05 PM EDT Lu Estrada MD LAB BLOOD ORDERABLES Final Resul t [facility] [address] [place] [phone] [phone] * ThinPrep Imaging Pap and HPV mRNA E6/E7 with Reflex to HPV 16,18/45 (12/05/2023 12:00 AM EDT) HPV 16 RNA [facility] HPV 18/45 RNA [facility] HPV nRNA E6/E7 Not Detected Not Detected [facility] Comment:Methodology: Transcr iption-Mediated AmplificationThis assay detects E6/E7 viral messenger RNA (mRNA) from 14high-risk HPV types (16,18,31,33,35,39,45,51,52,56,58,59,66,68).Cervical sources are required for HPV testing.If a vaginal source from a patient who has had atotal hysterectomy with removal of cervix wassubmitted, please contact the testing laboratoryfor alternative testing options.For additional information, please refer tohttp://education.Tacoda/faq/ISC840m1(This link if provided for information/educational purposes only.)THIS TEST WAS PERFORMED AT:[email or web address] [address] [phone] MILLS MD SOURCE: SEE NOTE [facility] Comment:None given Report Status: [facility] Clinical Information: SEE NOTE [facility] Comment:None given LMP: SEE NOTE [facility] Comment:NONE GIVEN Prev. PAP: SEE NOTE [facility] Comment:NONE GIVEN Prev. BX: SEE NOTE [facility] Comment:NONE GIVEN Statement Of Adequacy: SEE NOTE [facility] Comment:Satisfactory for tahmina luation.Endocervical/transformation zone componentpresent. General Categorization: [facility] Interpretation/Result: SEE NOTE [facility] Comment:Cytology Results: Ne gative for intraepitheliallesion or malignancy. Cytology Comment SEE NOTE [facility] Comment:This Pap test has be en evaluated with computerassisted technology. Medical Receptionist Biller: SEE NOTE [facility] Comment:[place], CT(ASCP)CT scre ening location: [address] [address] Review Medical Receptionist Biller: TNP [facility] Pathologist [facility] PAP Infection [facility] See Note SEE NOTE [facility] Comment:EXPLANATORY NOTE:The Pap is a screening test for cervical cancer. It isnot a diagnostic test and is subject to false negativeand false positive results. It is most reliable when asatisfactory sample, regularly obtained, is submittedwith relevant clinical findings and history, and whenthe Pap result is evaluated along with historic andcurrent clinical information. 12/05/2023 12/05/2023 Narrative [facility] - 12/11/2023 1:12 PM EDT SEE SCANNED RESULTS IN EMR us Generic External Data Provider LAB PATHOLOGY ORD ERABLES Final Result Performing Organization Address City/[facility]/ZIP Co de Phone Number [facility] [address] [place] [phone] * HEPATITIS C AB W/REFL TO HCV RNA, QN, PCR (03/16/2020 4:32 PM EST) HEPATITIS C ANTIBODY NON-REACT CORA NON-REACT CORA [facility] INDEX 0.02 <1.00 [facility] Comment: ?? HCV antibody was non-reactive. There is no laboratory ?? evidence of HCV infection. ?? In most cases, no further action is required. However, if recent HCV exposure is suspected, a test for HCV RNA (test code 44507) is suggested. ?? For additional information please refer to http://education.Tacoda/faq/UWB64p0 (This link is being provided for informational/ educational purposes only.) ?? 03/16/2020 4:32 PM EST us Lu Estrada MD HISTORICAL/NON ORDERABLE LABS Fi nal Result Performing Organization Address City/[facility]/ZIP Co de Phone Number [facility] [address] * HIV 1/2 ANTIGEN/ANTIBODY,FOURTH GENERATION W/RFL (03/16/2020 4:32 PM EST) HIV-1/2 ANTIGEN AND ANTIBODIES, 4TH GENERATION W/ REFLEX NON-REACT CORA NON-REACT COAR [facility] Comment: HIV-1 antigen and HIV-1/HIV-2 [...] ? For additional information please refer to http://[employer].Tacoda/faq/RMH506 (This link is being provided for informational/ educational purposes only.) ? The performance of this assay has not been clinically validated in patients less than 2 years old. ?? 03/16/2020 4:32 PM EST us Lu Estrada MD LAB BLOOD ORDERABLES Final Resul t Performing Organization Address City/State/[facility] Co de Phone Number [facility] [address] from Last 3 Months or Most Recently Relevant to Health Maintenance Insurance [facility] ST[facility] ADULT Care Teams Sales Enablement Manager Relationship Specialty Start Date End Date Lu Estrada MD [address] [place] [phone] PCP - General Family Medicine 03/27/18
--- OUTSIDE RECORDS SUMMARY | 2024-07-09 11:50 | XMS_ITS | Encounter Summary ---
Author Organization [employer] Address [address] [facility] 7t [place] [address] Care Team Providers Care Wastewater Supervisor Name Role Phone Lu Estrada MD Primary Care Provider [phone] Reason for Visit * Reason Comments Med Refill Encounter Details Date Type Department Care Team ([facility] st Contact Info) Description 05/01/[address] [facility] MEDICINE [address] [place] [address] Lorri Eduardo DO [address] [place], [place] [phone] Social History Tobacco Use Types Packs/Day Years [...] 10:00 AM EDT Office Visit [facility] ADULT DENTAL [address] [place] [address] Raymon, Heidi [address] [place] [address] documented as of this encounter Visit Diagnoses Not on filedocumented in this encounter Additional Health Concerns Assessment Noted Time PHQ-9 Depression Total Score: 0 03/08/20 23 11:18 AM EST documented as of this encounter Care Teams Wastewater Supervisor Relationship Specialty Start Date End Date Lu Estrada MD [address] [place] [address] PCP - General Family Medicine 03/27/18 documented as of this encounter
--- OUTSIDE RECORDS SUMMARY | 2024-07-09 11:50 | XMS_ITS | Encounter Summary ---
Author Organization [employer] Address [address] [facility] 7t [place] [address] Care Team Providers Care Plant Electrician Name Role Phone Lu Estrada MD Primary Care Provider [phone] Reason for Visit * Reason Comments Med Refill Encounter Details Date Type Department Care Team ([facility] Contact Info) Description 04/22/[address] [facility] CHC MED & PEDS [address] [place] [address] Vandana Black, ANP [address] [place] [address] Social History Tobacco Use Types Packs/Day Years [...] Upcoming Encounters Date Type Department Care Team ([facility] Contact Info) Description 09/11/2024 10:00 AM EDT Office Visit [facility] ADULT DENTAL [address] [place] [address] Mc Ennisaris [address] [place] [address] documented as of this encounter Visit Diagnoses Not on filedocumented in this encounter Care Teams Plant Electrician Relationship Specialty Start Date End Date Lu Estrada MD [address] [place] [address] PCP - General Family Medicine 03/27/18 documented as of this encounter
--- OUTSIDE RECORDS SUMMARY | 2024-07-09 11:50 | XMS_ITS | Encounter Summary ---
Author Organization [employer] Address [address] [facility] 7t [place] [address] Care Team Providers Care Barrel Cleaner Name Role Phone Lu Estrada MD Primary Care Provider Reason for Visit * Reason Comments Med Refill Encounter Details Date Type Department Care Team (Late st Contact Info) Description 06/18/2022 Refill [facility] CH[facility] MED & PEDS [address] [place] [address] Vandana Black, ANP [address] [place] [address] Social History Tobacco Use Types Packs/Day Years [...] Description 09/11/2024 10:00 AM EDT Office Visit [facility] ADULT DENTAL [address] [place] [address] Raymon, Heidi [address] [place] [address] documented as of this encounter Visit Diagnoses Not on filedocumented in this encounter Care Teams Barrel Cleaner Relationship Specialty Start Date End Date Lu Estrada MD [address] [place] [address] PCP - General Family Medicine 03/27/18 documented as of this encounter
--- OUTSIDE RECORDS SUMMARY | 2024-07-09 11:50 | XMS_ITS | Encounter Summary ---
Author Organization [employer] Address [address] [place] [address] 7t [place] [address] Care Team Providers Care Methods Time Analyst Name Role Phone Lu Estrada MD Primary Care Provider [phone] Reason for Visit * Reason Comments Med Refill Encounter Details Date Type Department Care Team (Late st Contact Info) Description 06/08/2022 Refill [facility] MEDICINE [address] [place] [address] Danny Lundy MD [address] [place] [address] Social History Tobacco Use Types Packs/Day Years [...] [facility] [address] [place] [address] Heidi Ennis [address] [place] [address] documented as of this encounter Visit Diagnoses Not on filedocumented in this encounter Care Teams Methods Time Analyst Relationship Specialty Start Date End Date Lu Estrada MD [address] [place] [address] PCP - General Family Medicine 03/27/18 documented as of this encounter
--- OUTSIDE RECORDS SUMMARY | 2024-07-09 11:50 | XMS_ITS | Encounter Summary ---
Author Organization [employer] Address [address] [place] [address] 7 [place] [address] Care Team Providers Care Nuclear Medicine Technician Name Role Phone Lu Estrada MD Primary Care Provider [phone] Encounter Details Date Type Department Care Team (Late st Contact Info) Description 02/23/2022 Abstract [facility] ADULT DENTAL [address] [place] [address] Dental, Provider, DDS Social History Tobacco Use [...] Description 09/11/2024 10:00 AM EDT Office Visit [facility] ADULT DENTAL [address] [place] [address] RaymonMcHeidi [address] [place] [address] documented as of this encounter Procedures Procedure Name Priority Date/Time Associated Diagnosis Comments 14 O AMALGAM FILLING Routine 02/23/2022 12:00 AM EST documented in this encounter Visit Diagnoses Not on filedocumented in this encounter Care Teams Nuclear Medicine Technician Relationship Specialty Start Date End Date Lu Estrada MD [address] [place] [address] PCP - General Family Medicine 03/27/18 documented as of this encounter
--- OUTSIDE RECORDS SUMMARY | 2024-07-09 11:50 | XMS_ITS | Encounter Summary ---
Author Organization [employer] Address [address] [facility] 7t [place] [address] Care Team Providers Care Job Coach/Job Developer Name Role Phone Lu Estrada MD Primary Care Provider [phone] Reason for Visit * Reason Onset Date Comments Appointment 07/05/2022 Encounter Details Date Type Department Care Team ([facility] st Contact Info) Description 07/05/[address] [facility] ADULT DENTAL [address] [place] [address] Raymon, Heidi [address] [place] [address] Appointment Social History Tobacco Use Types Packs/Day [...] appt. It is not currently requested in Epic and I dont know if to request or not sure if the Nex Gen list is blended with Epic list. documented in this encounter Plan of Treatment Upcoming Encounters Date Type Department Care Team (Late st Contact Info) Description 09/11/2024 10:00 AM EDT Office Visit [facility] ADULT DENTAL [address] [place], [place] [phone] Raymon, Heidi [address] [place], [place] [phone] documented as of this encounter Visit Diagnoses Not on filedocumented in this encounter Care Teams Job Coach/Job Developer Relationship Specialty Start Date End Date Lu Estrada MD [address] [place], [place] [phone] PCP - General Family Medicine 03/27/18 documented as of this encounter
--- OUTSIDE RECORDS SUMMARY | 2024-07-09 11:50 | XMS_ITS | Encounter Summary ---
Author Organization [employer] Address [address] [place] [address] 7t [place] [address] Care Team Providers Care Mobile Application Developer Name Role Phone Lu Estrada MD Primary Care Provider [phone] Encounter Details Date Type Department Care Team (Latest Contact Info) Description 07/08/2020 Abstract [facility] CONVERSIONS Dental, Provider, DDS Social History [...] Description 09/11/2024 10:00 AM EDT Office Visit [facility] ADULT DENTAL [address] [place] [address] Raymon, Heidi [address] [place] [address] documented as of this encounter Visit Diagnoses Not on filedocumented in this encounter Care Teams Mobile Application Developer Relationship Specialty Start Date End Date Lu Estrada MD [address] [place] [address] PCP - General Family Medicine 03/27/18 documented as of this encounter
--- OUTSIDE RECORDS SUMMARY | 2024-07-09 11:50 | XMS_ITS | Encounter Summary ---
Author Organization [employer] Address [address] [place] [address] 7t [place] [address] Care Team Providers Care Epidemiology Intern Name Role Phone Lu Estrada MD Primary Care Provider [phone] Encounter Details Date Type Department Care Team (Latest Contact Info) Description 01/01/2019 Abstract [facility] CONVERSIONS Dental, Provider, DDS Social History Tobacco [...] Description 09/11/2024 10:00 AM EDT Office Visit [facility] ADULT DENTAL [address] [place] [address] Raymon, Heidi [address] [place] [address] documented as of this encounter Visit Diagnoses Not on filedocumented in this encounter Care Teams Epidemiology Intern Relationship Specialty Start Date End Date Lu Estrada MD [address] [place] [address] PCP - General Family Medicine 03/27/18 documented as of this encounter
--- OUTSIDE RECORDS SUMMARY | 2024-07-09 11:50 | XMS_ITS | Encounter Summary ---
Author Organization [employer] Address [address] [facility] [address] 7t [place] [address] Care Team Providers Care Trail Construction Worker Name Role Phone Lu Estrada MD Primary Care Provider Reason for Visit * Reason Comments Med Refill Encounter Details Date Type Department Care Team ([facility] st Contact Info) Description 03/09/2023 Refill [facility] CHC MED & PEDS [address] [place], [place] [phone] Vandana Black, ANP [address] [place] [address] Social History Tobacco Use Types Packs/Day Years [...] [facility] ADULT DENTAL [address] [place] [address] Raymon, Heidi [address] [place] [address] documented as of this encounter Visit Diagnoses Not on filedocumented in this encounter Additional Health Concerns Assessment Noted Time PHQ-9 Depression Total Score: 0 03/08/20 23 11:18 AM EST documented as of this encounter Care Teams Trail Construction Worker Relationship Specialty Start Date End Date Lu Estrada MD [address] [place] [address] PCP - General Family Medicine 03/27/18 documented as of this encounter
--- OUTSIDE RECORDS SUMMARY | 2024-07-09 11:50 | XMS_ITS | Encounter Summary ---
Demographics Address [address] [facility] [address] [place] [address] Home Phone Work Phone Mobile Phone Email Address Preferred Language en Marital Status Single Jewish Affiliation Unknown Race Other Race Ethnic Group or Author Organization [employer] Address [address] [facility] 7t [place] [address] Care Team Providers Care Reaming Machine Tender Name Role Phone Lu Estrada MD Primary Care Provider [phone] Encounter Details Date Type Department Care Team ([facility] Contact Info) Description 03/28/2024 Orders Only [facility] CHC MED & PEDS [address] [place] [address] Elliot Antunez MD [address] [place] [address] Social History Tobacco Use Types Packs/Day Years [...] 10:00 AM EDT Office Visit [facility] ADULT DENTAL [address] [place] [address] Raymon, Heidi [address] [place] [address] documented as of this encounter Visit Diagnoses Not on filedocumented in this encounter Additional Health Concerns Assessment Noted Time PHQ-9 Depression Total Score: 5 01/22/20 24 3:06 PM EDT documented as of this encounter Care Teams Reaming Machine Tender Relationship Specialty Start Date End Date Lu Estrada MD [address] [place] [address] PCP - General Family Medicine 03/27/18 documented as of this encounter
--- OUTSIDE RECORDS SUMMARY | 2024-07-09 11:50 | XMS_ITS | Encounter Summary ---
Author Organization [employer] Address [address] [facility] 7t [place] [address] Care Team Providers Care Fishing Tackle Repairer Name Role Phone Lu Estrada MD Primary Care Provider [phone] Reason for Visit * Reason Onset Date Comments Letter for School/Work 04/27/2023 Encounter Details Date Type Department Care Team ([facility] Contact Info) Description 04/27/2023 Telephone [facility] MEDICINE [address] [place] [address] Lu Estrada MD [address] [place], [place] [phone] Letter for School/Work Social History Tobacco Use [...] 09/11/2024 10:00 AM EDT Office Visit [facility] ADULT DENTAL [address] [place] [address] Raymon, Heidi [address] [place] [address] documented as of this encounter Visit Diagnoses Not on filedocumented in this encounter Additional Health Concerns Assessment Noted Time PHQ-9 Depression Total Score: 0 03/08/20 23 11:18 AM EST documented as of this encounter Care Teams Fishing Tackle Repairer Relationship Specialty Start Date End Date Lu Estrada MD [address] [place] [address] PCP - General Family Medicine 03/27/18 documented as of this encounter
--- OUTSIDE RECORDS SUMMARY | 2024-07-09 11:50 | XMS_ITS | Encounter Summary ---
Author Organization [employer] Address [address] [facility] 7t [place] [address] Care Team Providers Care Finish Mender Name Role Phone Lu Estrada MD Primary Care Provider [phone] Reason for Visit * Reason Comments Med Refill Encounter Details Date Type Department Care Team ([facility] st Contact Info) Description 03/09/2023 Refill [facility] MEDICINE [address] [place] [address] Lu Estrada MD [address] [place], [place] [phone] Social History Tobacco Use Types Packs/Day Years [...] Description 09/11/2024 10:00 AM EDT Office Visit [facility] ADULT DENTAL [address] [place] [address] Raymon, Heidi [address] [place] [address] documented as of this encounter Visit Diagnoses Not on filedocumented in this encounter Additional Health Concerns Assessment Noted Time PHQ-9 Depression Total Score: 0 03/08/20 23 11:18 AM EST documented as of this encounter Care Teams Finish Mender Relationship Specialty Start Date End Date Lu Estrada MD [address] [place] [address] PCP - General Family Medicine 03/27/18 documented as of this encounter
--- OUTSIDE RECORDS SUMMARY | 2024-07-09 11:50 | XMS_ITS | Encounter Summary ---
Author Organization [employer] Address [address] [facility] [address] 7t [place] [address] Care Team Providers Care Pharmaceutical Assistant Name Role Phone Lu Estrada MD Primary Care Provider [phone] Encounter Details Date Type Department Care Team ([facility] st Contact Info) Description 04/30/2024 Orders Only [facility] [address] [place] [address] Lu Estrada MD 230 [place], [place] [phone] Abnormal CT of the abdomen (Primary Dx); [...] the past 12 months, has t he [place], gas, oil or water [employer] threatened to shut off services in your [...] Description 09/11/2024 10:00 AM EDT Office Visit [facility] ADULT DENTAL [address] [place] [address] Raymon, Heidi [address] [place] [address] documented as of this encounter Procedures Procedure Name Priority Date/Time Associated Diagnosis Comments BI MAMMOGRAM DIAGNOSTIC TOMOSYNTHESIS BILATERAL Routine 06/07/2024 10:00 AM EDT documented in this encounter Results * BI Mammogram Diagnostic Tomosynthesis Bilateral (06/07/2024 10:00 AM EDT) Anatomical Region Laterality Modality Breast Bilateral Mammography 06/07/2024 10:0 0 AM EDT Narrative 06/07/2024 11:42 AM EDT ? [facility] ? [address] ?[place] [address] ? Mammography Report ? Signed ? Patient: Mckeon Ramsey,Shruti ?MR#: [id number] ?? [id number] ? : 1985 ?Acct:[id number] ? Age/Sex: 39 / F ?ADM Date: 06/07/24 ? Loc: HO.MAMMO ? Attending Dr: Lu Estrada MD ? Ordering Physician: Lu Estrada MD ?Results: 1Negative ? Date of Service: 06/07/24 ?Follow Up: Mammo at 42 or e ?? arlier if clinically needed ? Procedure(s): MM tomosynthesis diagnostic BI ?? Accession Number(s): [id number] ? cc: Lu Estrada MD ? EXAMINATION: [...] DD/ 1000 ? TD/TT: 06/07/24 1018 ? Rolling Mill Operator: ? Procedure Note Donkanwalinterpreter, Image - 06/07/2024 [facility] [address] [place] [address] Mammography Report Signed Patient: Ajay Winters#: [id number] : 1985Acct:[id number] Age/Sex: 39 / FADM Date: 06/07/24 Loc: LISA Attending Dr: Lu Estrada MD Ordering Physician: Lu Estrada MDResults: 1Negative Date of Service: 06/07/24Follow Up: Mammo at 42 or e arlier if clinically needed Procedure(s): MM tomosynthesis diagnostic BI Accession Number(s): [id number] cc: Lu Estrada MD EXAMINATION: MM DIAGNOSTIC [...] 06/07/24 1139 DD/ 1000 TD/TT: 06/07/24 1018 Rolling Mill Operator: Lu Estrada MD IMG BI PROCEDURES Final Result documented in this encounter Visit Diagnoses Diagnosis Abnormal CT of the abdomen- Primary Nonspecific (abnormal) findings on radiological and other examination of abdominal area, including retroperitoneum Breast density Other sign and symptom in breast documented in this encounter Additional Health Concerns Assessment Noted Time PHQ-9 Depression Total Score: 5 01/22/20 24 3:06 PM EDT documented as of this encounter Care Teams Pharmaceutical Assistant Relationship Specialty Start Date End Date Lu Estrada MD [address] [place] [address] PCP - General Family Medicine 03/27/18 documented as of this encounter
== END 2024-07-09 10:46 | disposition home or self-care (01) ==
LOC: HO.HOS 10:06
PROVIDERS: PCP Family Medicine; Visit Provider Orthopaedic Surgery
DX: M67.431 Ganglion, right wrist (principal); M79.7 Fibromyalgia
CPT/HCPCS: 99214

== ENCOUNTER → 2024-07-09 10:06 | Outpatient (BNVA) | payer MEDICAID, SELFPAY | PROVIDERS: PCP Family Medicine; Visit Provider Orthopaedic Surgery | DX: M67.431 Ganglion, right wrist (principal); M79.7 Fibromyalgia; J45.909 Unspecified asthma, uncomplicated | CPT/HCPCS: 99212 ==

== ENCOUNTER 2024-07-11 11:29 | Outpatient (REF) | payer MEDICAID, SELFPAY ==
--- NOTE | ~2024-07-11 | XR_ITS ---
CLINICAL HISTORY: left knee pain 2 view left knee Comparison: None Findings: No acute fracture or dislocation is identified. The femorotibial joint space is preserved. Soft tissue structures appear within normal limits. IMPRESSION: 1. No acute osseous abnormality is identified. This document has been electronically signed by: Robby Michelle on 07/12/2024 09:25:52
== END 2024-07-11 11:30 | disposition home or self-care (01) ==
LOC: HO.XRAY 11:29
PROVIDERS: Visit Provider Family Medicine
DX: M25.562 Pain in left knee (principal); G89.29 Other chronic pain
CPT/HCPCS: 73560

== ENCOUNTER → 2024-07-11 11:33 | Outpatient (BNV) | payer MEDICAID, SELFPAY | PROVIDERS: Visit Provider Radiology Vascular & Interventional Radiology | DX: M25.562 Pain in left knee (principal) | CPT/HCPCS: 73560 ==

== ENCOUNTER 2024-07-19 13:30 | Outpatient (REF) | payer MEDICAID, SELFPAY ==
--- OUTSIDE RECORDS SUMMARY | 2024-07-19 15:13 | XMS_ITS | Encounter Summary ---
Author Organization [employer] Address [address] [place] [address] 7t [place] [address] Care Team Providers Care Chute Tender Name Role Phone Lu Estrada MD Primary Care Provider [phone] Reason for Visit * Reason Onset Date Comments Appointment Request 12/23/2022 Derm Encounter Details Date Type Department Care Team ([facility] st Contact Info) Description 12/23/2022 Telephone [facility] MEDICINE [address] [place] [address] Lu Estrada MD [address] [place] [address] Appointment Request (Derm ) Social History Tobacco [...] 10:00 AM EDT Office Visit [facility] ADULT DENTAL [address] [place], [place] [phone] Raymon, Heidi [address] [place] [address] documented as of this encounter Visit Diagnoses Not on filedocumented in this encounter Care Teams Chute Tender Relationship Specialty Start Date End Date Lu Estrada MD 230 [place], [place] [phone] PCP - General Family Medicine 03/27/18 documented as of this encounter
--- OUTSIDE RECORDS SUMMARY | 2024-07-19 15:13 | XMS_ITS | Encounter Summary ---
Author Organization [employer] Address [address] [place] [address] 7t [place] [address] Care Team Providers Care Shipping Associate Name Role Phone Lu Estrada MD Primary Care Provider [phone] Encounter Details Date Type Department Care Team (Late st Contact Info) Description 04/04/2022 Abstract [facility] ADULT DENTAL [address] [place] [address] Viet Kellogg DDS [address] [place] [address] Social History Tobacco Use Types Packs/Day Years [...] [facility] ADULT DENTAL [address] [place] [address] Heidi Ennis [address] [place] [address] documented as of this encounter Visit Diagnoses Not on filedocumented in this encounter Care Teams Shipping Associate Relationship Specialty Start Date End Date Lu Estrada MD 230 [place] [address] PCP - General Family Medicine 03/27/18 documented as of this encounter
--- OUTSIDE RECORDS SUMMARY | 2024-07-19 15:13 | XMS_ITS | Encounter Summary ---
Author Organization [employer] Address [address] [place] [address] 7t [place] [address] Care Team Providers Care Inspection And Testing Supervisor Name Role Phone Lu Estrada MD Primary Care Provider [phone] Reason for Visit * Reason Comments Med Refill Encounter Details Date Type Department Care Team (Late st Contact Info) Description 06/08/2022 Refill [facility] MEDICINE 230 [place] [address] Danny Lundy MD 230 [place] [address] Social History Tobacco Use Types Packs/Day Years [...] [facility] ADULT [facility] [address] [place] [address] Heidi Ennis [address] [place] [address] documented as of this encounter Visit Diagnoses Not on filedocumented in this encounter Care Teams Inspection And Testing Supervisor Relationship Specialty Start Date End Date Lu Estrada MD [address] [place] [address] PCP - General Family Medicine 03/27/18 documented as of this encounter
--- OUTSIDE RECORDS SUMMARY | 2024-07-19 15:13 | XMS_ITS | Encounter Summary ---
Author Organization [employer] Address [address] [place] [address] 7 [place] [address] Care Team Providers Care Sales Representative Malt Liquors Name Role Phone Lu Estrada MD Primary Care Provider [phone] Reason for Referral * Consultation (Routine) - Authorized Specialty Diagnoses / Procedures [facility] Referred To Contact Orthopaedic Surgery Diagnoses Ganglion cyst of wrist, right Lu Estrada MD 230 [place] [address] Phone: tel: fax: [facility] Referral ID Status Reason Start Date Expiration Date Visits Requested Visits Authorized [id number] Authorized Specialty Services Required 06/25/2024 06/25/2025 12 12 Encounter Details Date Type Department Care Team (Late st Contact Info) Description 06/24/2024 Orders Only [facility] MEDICINE [address] [place] [phone] Lu Estrada MD [address] [place], [place] [phone] Ganglion cyst of wrist, right (Primary Dx) [...] Description 09/11/2024 10:00 AM EDT Office Visit [facility] ADULT DENTAL [address] [place] [address] Raymon, Heidi [address] [place] [address] Scheduled Referrals Name Type Priority Associated Diagnoses [...] documented as of this encounter Care Teams Sales Representative Malt Liquors Relationship Specialty Start Date End Date Lu Estrada MD [address] [place] [address] PCP - General Family Medicine 03/27/18 documented as of this encounter
--- OUTSIDE RECORDS SUMMARY | 2024-07-19 15:13 | XMS_ITS | Encounter Summary ---
Author Organization [employer] Address [address] [place] [address] 7t [place] [address] Care Team Providers Care Medical Authorization Specialist Name Role Phone Lu Estrada MD Primary Care Provider [phone] Encounter Details Date Type Department Care Team (Latest Contact Info) Description 01/01/2019 Abstract [facility] CONVERSIONS Dental, Provider, DDS Social History [...] [facility] [address] [place] [address] Raymon, Heidi 230 [place] [address] documented as of this encounter Visit Diagnoses Not on filedocumented in this encounter Care Teams Medical Authorization Specialist Relationship Specialty Start Date End Date Lu Estrada MD 230 [place] [address] PCP - General Family Medicine 03/27/18 documented as of this encounter
--- OUTSIDE RECORDS SUMMARY | 2024-07-19 15:13 | XMS_ITS | Encounter Summary ---
Author Organization [employer] Address [address] [facility] 7t [place] [address] Care Team Providers Care Winding Department Supervisor Name Role Phone Lu Estrada MD Primary Care Provider [phone] Encounter Details Date Type Department Care Team ([facility] Contact Info) Description 03/18/2022 Abstract [facility]ULT D[facility]AL [address] [place] [address] Viet Kellogg DDS [address] [place] [address] Social History Tobacco Use Types Packs/Day Years [...] Upcoming Encounters Date Type Department Care Team ([facility] Contact Info) Description 09/11/2024 10:00 AM EDT Office Visit [facility] [address] [place] [address] Heidi Ennis [address] [place] [address] documented as of this encounter Visit Diagnoses Not on filedocumented in this encounter Care Teams Winding Department Supervisor Relationship Specialty Start Date End Date Lu Estrada MD [address] [place] [address] PCP - General Family Medicine 03/27/18 documented as of this encounter
--- OUTSIDE RECORDS SUMMARY | 2024-07-19 15:13 | XMS_ITS | Encounter Summary ---
Author Organization [employer] Address [address] [place] [address] 7 [place] [address] Care Team Providers Care Orthotics Assistant Name Role Phone Lu Estrada MD Primary Care Provider [phone] Encounter Details Date Type Department Care Team (Late st Contact Info) Description 02/23/2022 Abstract [facility] ADULT DENTAL [address] [place] [address] Dental, Provider, DDS Social History Tobacco Use [...] Description 09/11/2024 10:00 AM EDT Office Visit [facility] ADULT DENTAL [address] [place] [address] RaymonMcHeidi [address] [place] [address] documented as of this encounter Procedures Procedure Name Priority Date/Time Associated Diagnosis Comments 14 O AMALGAM FILLING Routine 02/23/2022 12:00 AM EST documented in this encounter Visit Diagnoses Not on filedocumented in this encounter Care Teams Orthotics Assistant Relationship Specialty Start Date End Date uL Estrada MD [address] [place] [address] PCP - General Family Medicine 03/27/18 documented as of this encounter
--- OUTSIDE RECORDS SUMMARY | 2024-07-19 15:13 | XMS_ITS | Encounter Summary ---
Author Organization [employer] Address [address] [place] [address] 7t [place] [address] Care Team Providers Care Sharepoint Solutions Developer Name Role Phone Lu Estrada MD Primary Care Provider [phone] Encounter Details Date Type Department Care Team (Late st Contact Info) Description 04/19/2022 Orders Only [facility] MEDICINE [address] [place] [address] Lu Estrada MD [address] [place] [address] Social History Tobacco Use Types Packs/Day Years [...] Description 09/11/2024 10:00 AM EDT Office Visit [facility] ADULT DENTAL [address] [place] [address] Heidi Ennis [address] [place] [address] documented as of this encounter Visit Diagnoses Not on filedocumented in this encounter Care Teams Sharepoint Solutions Developer Relationship Specialty Start Date End Date Lu Estrada MD [address] [place] [address] PCP - General Family Medicine 03/27/18 documented as of this encounter
--- OUTSIDE RECORDS SUMMARY | 2024-07-19 15:13 | XMS_ITS | Encounter Summary ---
Author Organization [employer] Address [address] [facility] 7t [place] [address] Care Team Providers Care College Director Name Role Phone Lu Estrada MD Primary Care Provider [phone] Reason for Visit * Reason Comments Med Refill Encounter Details Date Type Department Care Team ([facility] Contact Info) Description 04/22/2022 Refill [facility] CH[facility] MED & PEDS [address] [place] [address] Vandana Black, ANP [address] [place] [address] Social History Tobacco Use Types Packs/Day Years [...] Upcoming Encounters Date Type Department Care Team ([facility] Contact Info) Description 09/11/2024 10:00 AM EDT Office Visit [facility] ADULT DENTAL [address] [place] [address] Mc Ennisaris [address] [place] [address] documented as of this encounter Visit Diagnoses Not on filedocumented in this encounter Care Teams College Director Relationship Specialty Start Date End Date Lu Estrada MD [address] [place] [address] PCP - General Family Medicine 03/27/18 documented as of this encounter
--- OUTSIDE RECORDS SUMMARY | 2024-07-19 15:13 | XMS_ITS | Encounter Summary ---
Author Organization [employer] Address [address] [facility] 7t [place] [address] Care Team Providers Care Lead Dental Assistant Name Role Phone Lu Estrada MD Primary Care Provider Encounter Details Date Type Department Care Team (Late Contact Info) Description 10/17/2022 Abstract [facility] ADULT DENTAL [address] [place], [place] [phone] Heidi Ennis [address] [place] [address] Social History Tobacco Use Types Packs/Day Years [...] Description 09/11/2024 10:00 AM EDT Office Visit [facility] ADULT DENTAL [address] [place], [place] [phone] Heidi Ennis [address] [place] [address] documented as of this encounter Visit Diagnoses Not on filedocumented in this encounter Care Teams Lead Dental Assistant Relationship Specialty Start Date End Date Lu Estrada MD [address] [place] [address] PCP - General Family Medicine 03/27/18 documented as of this encounter
--- OUTSIDE RECORDS SUMMARY | 2024-07-19 15:13 | XMS_ITS | Encounter Summary ---
Author Organization [employer] Address [address] [facility] 7t [place] [address] Care Team Providers Care Regulated Program Manager Name Role Phone Lu Estrada MD Primary Care Provider [phone] Encounter Details Date Type Department Care Team (Late Contact Info) Description 10/17/2022 Abstract [facility] ADULT DENTAL [address] [place], [place] [address] Heidi Ennis [address] [place] [address] Social History Tobacco Use Types Packs/Day Years [...] Office Visit [facility] ADULT DENTAL [address] [place], [place] [phone] Heidi Ennis 230 [place] [address] documented as of this encounter Visit Diagnoses Not on filedocumented in this encounter Care Teams Regulated Program Manager Relationship Specialty Start Date End Date Lu Estrada MD [address] [place] [address] PCP - General Family Medicine 03/27/18 documented as of this encounter
--- OUTSIDE RECORDS SUMMARY | 2024-07-19 15:13 | XMS_ITS | Encounter Summary ---
Author Organization [employer] Address [address] [place] [address] 7 [place] [address] Care Team Providers Care Drainman Name Role Phone Lu Estrada MD Primary Care Provider [phone] Reason for Visit * Reason Comments Med Refill Encounter Details Date Type Department Care Team (Late st Contact Info) Description 04/19/2022 Refill [facility] MEDICINE [address] [place] [address] Leatha Chong MD [address] [place], [place] [phone] Primary hypertension (Primary Dx) Social History Tobacco [...] Visit [facility] ADULT DENTAL [address] [place] [address] Heidi Ennis [address] [place] [address] documented as of this encounter Visit Diagnoses Diagnosis Primary hypertension- Primary Unspecified essential hypertension documented in this encounter Care Teams Drainman Relationship Specialty Start Date End Date Lu Estrada MD [address] [place] [address] PCP - General Family Medicine 03/27/18 documented as of this encounter
--- OUTSIDE RECORDS SUMMARY | 2024-07-19 15:13 | XMS_ITS | Encounter Summary ---
Author Organization [employer] Address [address] [place] [address] 7t [place] [address] Care Team Providers Care Semiconductor Package Symbol Stamper Name Role Phone Lu Estrada MD Primary Care Provider [phone] Encounter Details Date Type Department Care Team (Latest Contact Info) Description 07/08/2020 Abstract [facility] CONVERSIONS Dental, Provider, DDS Social History [...] Description 09/11/2024 10:00 AM EDT Office Visit [facility] ADULT DENTAL [address] [place] [address] Raymon, Heidi [address] [place] [address] documented as of this encounter Visit Diagnoses Not on filedocumented in this encounter Care Teams Semiconductor Package Symbol Stamper Relationship Specialty Start Date End Date Lu Estrada MD [address] [place] [address] PCP - General Family Medicine 03/27/18 documented as of this encounter
--- OUTSIDE RECORDS SUMMARY | 2024-07-19 15:13 | XMS_ITS | Encounter Summary ---
Author Organization [employer] Address [address] [facility] 7t [place] [address] Care Team Providers Care Marketing Communication Manager Name Role Phone Lu Estrada MD Primary Care Provider [phone] Reason for Visit * Reason Onset Date Comments Referral 06/24/2024 Encounter Details Date Type Department Care Team ([facility] st Contact Info) Description 06/24/2024 Telephone [facility] MEDICINE [address] [place] [address] Lu Estrada MD [address] [place] [address] Referral Social History Tobacco Use Types Packs/Day [...] appt. She is asking for referral to [facility] Orthopedics to get it removed. Advised her of [facility] extended hours tomorrow, pt verbalized understanding. * Telephone Encounter - Heidi Hannah - 06/24/2024 4:03 PM EDT Tc from pt requesting referral for orthopedic. Pt stated PCP is aware of cyst on hand If any questions or concerns contact pt at [phone] documented in this encounter Plan of Treatment Upcoming Encounters Date Type Department Care Team (Late st Contact Info) Description 09/11/2024 10:00 AM EDT Office Visit [facility] ADULT DENTAL [address] [place] [address] Heidi Ennis [address] [place] [address] documented as of this encounter Visit Diagnoses Not on filedocumented in this encounter Additional Health Concerns Assessment Noted Time PHQ-9 Depression Total Score: 5 01/22/20 24 3:06 PM EDT documented as of this encounter Care Teams Marketing Communication Manager Relationship Specialty Start Date End Date Lu Estrada MD [address] [place] [address] PCP - General Family Medicine 03/27/18 documented as of this encounter
--- OUTSIDE RECORDS SUMMARY | 2024-07-19 15:13 | XMS_ITS | Encounter Summary ---
Author Organization [employer] Address [address] [facility] [address] [place] [address] Care Team Providers Care Merchandising Internship Name Role Phone Lu Estrada MD Primary Care Provider [phone] Reason for Visit * Reason Comments Med Refill Encounter Details Date Type Department Care Team (Late st Contact Info) Description 06/18/2022 Refill [facility] MED & PEDS [address] [place] [address] Vandana Black, ANP [address] [place] [address] Social History Tobacco Use Types Packs/Day Years [...] [facility] ADULT DENTAL [address] [place] [address] Raymon, Heidi [address] [place] [address] documented as of this encounter Visit Diagnoses Not on filedocumented in this encounter Care Teams Merchandising Internship Relationship Specialty Start Date End Date Lu Estrada MD [address] [place] [address] PCP - General Family Medicine 03/27/18 documented as of this encounter
--- OUTSIDE RECORDS SUMMARY | 2024-07-19 15:13 | XMS_ITS | Encounter Summary ---
Author Organization [employer] Address [address] [facility] [address] [place] [address] Care Team Providers Care Retail Delivery Driver Name Role Phone Lu Estrada MD Primary Care Provider [phone] Encounter Details Date Type Department Care Team ([facility] Contact Info) Description 07/17/2024 Telephone [facility] MEDICINE [address] [place] [address] Lu Estrada MD [address] [place], [place] [id number] Social History Tobacco Use Types Packs/Day Years [...] Description 09/11/2024 10:00 AM EDT Office Visit [facility] ADULT DENTAL [address] [place], [place] [id number] Raymon, Heidi [address] [place] [address] documented as of this encounter Visit Diagnoses Not on filedocumented in this encounter Additional Health Concerns Assessment Noted Time PHQ-9 Depression Total Score: 5 01/22/20 24 3:06 PM EDT documented as of this encounter Care Teams Retail Delivery Driver Relationship Specialty Start Date End Date Lu Estrada MD [address] [place] [id number] PCP - General Family Medicine 03/27/18 documented as of this encounter
--- OUTSIDE RECORDS SUMMARY | 2024-07-19 15:13 | XMS_ITS | Clinical Summary ---
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; advised to contact her surgeon or ASSISTED LIVING ASSISTANT Atypical chest pain 07/13/2022 Enlarged tonsils 07/13/2022 [...] Plan (04/25/2022 4:36 PM EST): -followed by [facility] continue famotidine -continue pantoprazole -avoid NSAIDS IBS (irritable bowel syndrome) 04/21/2022 Assessment & Plan (01/28/2024 4:45 PM EST): - followed by [facility] last seen in May 2023 - s/p EGD and colonoscopy -GI prescribed dicyclomine, simethicone, and Creon, but she is not taking it; recommended to discuss with GI specialist before discontinuing it -work on stress reduction Assessment & Plan (05/05/2023 6:42 AM EST): - followed by [facility] last seen in Nov 2022 - [...] (04/29/2022 6:27 PM EST): - followed by [facility] last seen on 03/24/22 -continue dicyclomine [...] 4:48 PM EST): - previously seen by [facility] Clinician. - patient is not interested in behavioral health service -Pt was recommended to improve sleepy hygien and exercise during the day instead of taking medications Assessment & Plan (04/25/2022 4:35 PM EST): Was seen by [facility] Clinician. -Will check status of f/u. -Pt was recommended to improve sleepy hygien and exercise during the day instead of taking medications Dislocation of acromioclavicular joint 7 Migraine 05/04/2016 Assessment & Plan (04/28/2024 4:12 PM EST): -seen by [facility] neurologist in Apr 2019 -seen by [facility] neurology in Dec 2022 -04/23/22 [...] Plan (01/28/2024 4:50 PM EST): -seen by [facility] neurologist in Apr 2019 -seen by [facility] neurology in Dec 2022 -04/23/22 [...] Plan (05/05/2023 6:51 AM EST): -seen by [facility] neurologist in Apr 2019 -seen by [facility] neurology in Dec 2022 -04/23/22 [...] Type Department Care Team Description 07/17/2024 Telephone [facility] [address] [place] [address] Lu Estrada MD 07/12/[address] [address] Lu Estrada MD 06/24/2024 Orders Only [address] [address] Lu Estrada MD Ganglion cyst of wrist, right (Primary Dx) 06/24/2024 Telephone [facility] [address] [place] [address] Lu Estrada MD Referral 06/18/2024 9:45 AM EDT Office Visit [facility] OPTOMETRY [address] [place] [address] TarkaAziza, OD Dry eyes, bilateral (Primary Dx); Hypermetropia, bilateral 06/18/2024 Patient Outreach [facility] [address] [place] [address] Lu Estrada MD Transition Of Care (Tcm) 06/18/2024 Travel 06/07/2024 Population Health Risk Score Community [facility] (C[facility]) Department [address] [phone] Provider, Population Health Generic 06/05/2024 Refill [facility] [address] [place] [address] Lu Estrada MD Moderate persistent asthma without complication 05/21/2024 Telephone [facility] [address] [place] [address] Lu Estrada MD NO SHOW 05/15/[address] [address] Lu Estrada MD Chart Prep 05/09/2024 Patient Outreach [address] [address] Lu Estrada MD Transition Of Care (Tcm) 05/08/2024 Orders Only GENERIC EXTERNAL DATA DEPARTMENT Provider, Generic External Data 05/01/[address] [address] Ericka Pan RN Results; Appointment Request 04/30/2024 Patient Outreach [address] [address] Lu Estrada MD Transition Of Care (Tcm) 04/30/2024 Orders Only [address] [address] Lu Estrada MD Abnormal CT of the abdomen (Primary Dx); Breast density 04/30/2024 Orders Only GENERIC EXTERNAL DATA DEPARTMENT Provider, Generic External Data 04/29/2024 10:15 AM EST Office Visit [address] [address] Lu Estrada MD Primary hypertension (Primary Dx); Moderate persistent asthma without complication; Fibromyalgia; Chronic migraine without aura without status migrainosus, not intractable; Left sided abdominal pain; Chronic pain of left knee 04/29/2024 Travel 04/24/[address] [address] Jordyn Brewster [place] chart prep from Last 3 Months Immunizations Name Administration Dates Next Due DTaP 11/04/2011, 2,05/31/1991,05/09,02/05/1988,1987 Hep A, Adult 12/26/2017 Hep B, Adolescent or Pediatric 11/16/1999,1998 Hep B, adult 12/26/2017 Hib ([facility]) 05/09/1990 IPV 01/26/1988 Influenza injectable quadriv alent [...] [facility] [address] [place] [address] Raymon, Heidi [address] [place] [address] Health Maintenance Due Date Last Done Comments [...] Laterality Modality Lower Extremities, Knee Left [facility] 07/12/2024 9:25 AM EDT Narrative 07/12/2024 9:26 AM EDT ? [facility] ?[address] ?[place] [address] ?XRay Report ? Signed ? Patient: Mckeon Ramsey,Shruti ?MR#: MM ?? [id number] ? : 1985 ?Acct:[id number] ? Age/Sex: 39 / F ?ADM Date: 07/11/ ? Loc: HO.XRAY ? Attending Dr: Lu Estrada MD ? Ordering Physician: Lu Estrada MD ?? Date of Service: 07/11/24 ?? Procedure(s): XR knee LT 2V ?? Accession Number(s): [id number] ? cc: Lu Estrada MD ? CLINICAL [...] ? DD/ 4 ? TD/TT: 07/12/[address] ? Small Brake Form Operator: ? Procedure Note Donotuseinterpreter, Image - 07/12/[address] [address] XRay Report Signed Patient: Ajay Winters#: MM [id number] : 1985Acct:[id number] Age/Sex: 39 / FADM Date: 07/11/24 Loc: HO.ДМИТРИЙ Attending Dr: Lu Estrada MD Ordering Physician: Lu Estrada MD Date of Service: 07/11/24 Procedure(s): XR knee LT 2V Accession Number(s): [id number] cc: Lu Estrada MD CLINICAL HISTORY: left [...] in OV> 07/12/24925 DD/ 4 TD/TT: 07/12/24924 Small Brake Form Operator: us Lu Estrada MD IMG XR PROCEDURES Edited Result - Final * BI US Breast Limited Right (06/07/2024 10:44 AM EDT) Anatomical Region Laterality Modality Breast Right Ultrasound 06/07/2024 10:4 4 AM EDT Narrative 06/07/2024 11:42 AM EDT ? [facility] ? [address] ?[place] [address] ? Ultrasound Report ? Signed ? Patient: Mckeon Ramsey,Shruti ?MR#: MM ?? [id number] ? : 1985 ?Acct:[id number] ? Age/Sex: 39 / F ?ADM Date: 06/07/24 ? Loc: HO.MAMMO ? Attending Dr: Lu Estrada MD ? Ordering Physician: Lu Estrada MD ?? Date of Service: 06/07/24 ?? Procedure(s): US breast RT limited mamm only ?? Accession Number(s): [id number] ? cc: Lu Estrada MD ? EXAMINATION: [...] ??Devora Caal DO ??06/07/2024 11:39 AM EDT ?? RP ? Dictated By: ?Devora Caal DO ? Signed By: ?<Electronically signed by Devora Caal, DO in OV> ? 06/07/24 1139 ? DD/ 1044 ? TD/TT: 06/07/24 1100 ? Small Brake Form Operator: ? Procedure Note Donotuseinterpreter, Image - 06/07/2024 [facility] [address] [place] [address] Ultrasound Report Signed Patient: Ajay Winters#: MM [id number] : 1985Acct:[id number] Age/Sex: 39 / FADM Date: 06/07/24 Loc: HO.MAMMO Attending Dr: Lu Estrada MD Ordering Physician: Lu Estrada MD Date of Service: 06/07/24 Procedure(s): US breast RT limited mamm only Accession Number(s): [id number] cc: Lu Estrada MD EXAMINATION: MM DIAGNOSTIC [...] 06/07/24 1139 DD/ 1044 TD/TT: 06/07/24 1100 Small Brake Form Operator: us Lu Estrada MD IMG US PROCEDURES Final Result * BI Mammogram Diagnostic Tomosynthesis Bilateral (06/07/2024 10:00 AM EDT) Anatomical Region Laterality Modality Breast Bilateral Mammography 06/07/2024 10:0 0 AM EDT Narrative 06/07/2024 11:42 AM EDT ? [facility] [place] ? [address] ?[place] [address] ? Mammography Report ? Signed ? Patient: Mckeon Ramsey,Shruti ?MR#: MM ?? [id number] ? : 1985 ?Acct:[id number] ? Age/Sex: 39 / F ?ADM Date: /14/25 ? Loc: HO.MAMMO ? Attending Dr: Lu Estrada MD ? Ordering Physician: Lu Estrada MD ?Results: 1Negative ? Date of Service: /14/25 ?Follow Up: Mammo at 42 or e ?? arlier if clinically needed ? Procedure(s): MM tomosynthesis diagnostic BI ?? Accession Number(s): [id number] ? cc: Lu Estrada MD ? EXAMINATION: [...] DD/ 1000 ? TD/TT: 06/07/24 1018 ? Small Brake Form Operator: ? Procedure Note Amarjit, Image - 06/07/2024 [facility] [address] [place] [address] Mammography Report Signed Patient: Ajay Winters#: MM [id number] : 1985Acct:[id number] Age/Sex: 39 / FADM Date: 06/07/24 Loc: HO.MAMMO Attending Dr: Lu Estrada MD Ordering Physician: Lu Estrada MDResults: 1Negative Date of Service: 06/07/24Follow Up: Mammo at 40 or e arlier if clinically needed Procedure(s): MM tomosynthesis diagnostic BI Accession Number(s): [id number] cc: Lu Estrada MD EXAMINATION: MM DIAGNOSTIC [...] 06/07/24 1139 DD/ 1000 TD/TT: 06/07/24 1018 Small Brake Form Operator: us Lu Estrada MD IMG BI PROCEDURES Final Result * (ABNORMAL) CBC auto differential (05/08/2024 10:33 PM EST) Only the most recent of2 resultswithin the time period is included. White Blood Count 6.7 4.8 - 10.8 X10*3/uL [facility] Red Blood Count 4.56 4.20 - 5.50 X10*6/uL [facility] Hemoglobin 13.1 12.0 - 16.0 g/dl [facility] Hematocrit 39.4 37.0 - 47.0 % [facility] Mean Corpuscular Volume 86.4 80.0 - 98.0 fL [facility] Mean Corpuscular Hemoglobin 28.7 27.0 - 33.0 pg [facility] Mean Corpuscular HGB Conc 33.2 31.0 - 35.0 g/dl [facility] Red Cell Distribution Width 13.7 11.0 - 16.0 % [facility] Platelet Count 253 160 - 400 X10*3/uL [facility] Mean Platelet Volume 10.6 9.4 - 12.3 fL [facility] Neutrophils Percent Auto 41.0(L) 45 - 73 % [facility] Imm Gran Pct Auto 0.0 0.0 - 0.4 % [facility] Lymphocytes Percent Auto 50.0(H) 20 - 40 % [facility] Monocytes Percent Auto 7.7 2 - 11 % [facility] Eosinophils Percent Auto 0.8 0 - 4 % [facility] Basophils Percent Auto 0.5 0 - 2 % [facility] NRBC Pct Auto 0.0 0.0 - 0.2 /100WBC [facility] Neutrophils Absolute Auto 2.7 2.0 - 8.3 x10*3/uL [facility] Imm Gran Abs Auto 0.00 0.00 - 0.03 X10*3/uL [facility] Lymphocytes Absolute Auto 3.3 1.2 - 4.9 X10*3/uL [facility] Monocytes Absolute Auto 0.5 0.1 - 1.2 X10*3/uL [facility] Eosinophils Absolute Auto 0.1 0.0 - 0.4 X10*3/uL [facility] Basophils Absolute Auto 0.0 0.0 - 0.2 X10*3/uL [facility] NRBC Abs Auto 0.000 0.0 - 0.012 X10*3/uL [facility] 05/08/2024 10:3 3 PM EST 05/08/2024 10:36 PM EST us Generic External Data Provider LAB BLOOD ORDERAB LES Final Result [facility] [address] [place] [address] [phone] * (ABNORMAL) Comprehensive Metabolic Panel (05/08/2024 10:33 PM EST) Only the most recent of2 resultswithin the time period is included. Sodium 137 135 - 145 mmol/L [facility] Potassium 3.7 3.3 - 5.1 mmol/L [facility] Chloride 107 96 - 108 mmol/L [facility] Carbon Dioxide 21(L) 22 - 29 mmol/L [facility] Anion Gap 13 12 - 20 [facility] Urea Nitrogen (BUN) 14 9 - 16 mg/dL [facility] Creatinine, Serum 0.91 0.5 - 1.4 mg/dL [facility] Creatinine Clr Calc Pharmacy 95.2 [facility] Comment:Provided height and weight: 167.64 cm,87.5 kg.eGFR (calculated from the MDRD study equation) and eCrCl(calculated from the Cockcroft-Gault equation) are based ondifferent parameters and may not yield comparable results.If eCrCl result is absurd, please check patient'sheight/weight. Estimated Glomerular Filt Rate >60 [facility] Comment:Chronic Kidney Disea se: Estimated GFR < 60 mL/min/1.59h6Kynlzp Kidney Disease: Estimated GFR < 15 mL/min/1.73m2 Glucose 103 60 - 115 mg/dL [facility] Calcium 9.0 8.4 - 10.2 mg/dL [facility] Bilirubin, Total 0.8 0.0 - 1.0 mg/dL [facility] Aspartate Amino Transferase 19 5 - 31 U/L [facility] Alanine Aminotransferase 10 0 - 31 U/L [facility] Total Protein 8.1(H) 6.5 - 8.0 g/dL [facility] Albumin Level 4.5 3.5 - 5.0 g/dL [facility] Alkaline Phosphatase 57 39 - 117 U/L [facility] 05/08/2024 10:3 3 PM EST 05/08/2024 10:36 PM EST us Generic External Data Provider LAB BLOOD ORDERAB LES Final Result [facility] [address] [place] [phone] * SARS-CoV-2 RNA, Influenza A/B, and RSV RNA, Ql NAAT (05/08/2024 9:23 PM EST) Influenza A PCR NEGATIVE Negative [facility] Influenza B PCR NEGATIVE Negative [facility] Resp Syncy Virus RNA Qual PCR NEGATIVE Negative [facility] SARS COV2 PCR NEGATIVE Negative [facility] Comment:All test results mus t be [...] use by authorized laboratories.Testing performed on the [employer] GeneXpert utilizingreal-time RT-PCR.All SARS CoV2 and positive influenza A/B results arereported to [facility]. 05/08/2024 9:23 PM EST 05/08/2024 9:25 PM EST us Generic External Data Provider LAB MICROBIOLOGY - GENERAL ORDERABLES Final Result Performing Organization Address [facility]/State/ZIP Co de Phone Number [facility] [address] [facility] [place] [address] [phone] * CT Abdomen Pelvis w/ Contrast (04/30/2024 5:22 AM EST) Anatomical Region Laterality Modality Body, Pelvis, Abdomen Computed T omography 04/30/2024 5:22 AM EST Narrative 04/30/2024 5:24 AM EST ? [facility] ?[address] ?[place] [address] ? CT Scan Report ? Signed with Addenda ? Patient: Mckeon Ramsey,Shruti ?MR#: MM ?? [id number] ? : 1985 ?Acct:[id number] ? Age/Sex: 38 / F ?ADM Date: 04/30/24 ? Loc: HO.ED ? Attending Dr: ? Ordering Physician: Jennifer Santillan MD ?? Date of Service: 04/30/24 ?? Procedure(s): CT abdomen pelvis w IV con ?? Accession Number(s): [id number] ? cc: Jennifer Santillan MD; Lu Estrada MD ? Report Number: ?? [id number]: Total DLP = ??746.00 mGy-cm ?ADDENDUM ?? This document has been electronically signed by: Monie Jenkins MD on ?? 04/30/2024 05:22:49 ? ADDENDUM: ?? Receipt of this report by the clinical staff was confirmed with pie topper, ?? David ManciaHeath on Apr 30, 2024 [...] IV CON - 03/04/24 22:31 EST ?? CT/TN/SR - CT ABDOMEN PELVIS WO IV CON [...] ? DD/ 1 ? TD/TT: 04/30/24521 ? Small Brake Form Operator: ? Procedure Note Tanmay Ocasio - 04/30/[address] [place] [address] [address] Scan Report Signed with Anjana Patient: Ajay Winters#: [id number] : 1985Acct:[id number] Age/Sex: 38 / FADM Date: 04/30/24 Loc: HO.ED Attending Dr: Ordering Physician: Jennifer Santillan MD Date of Service: 04/30/24 Procedure(s): CT abdomen pelvis w IV con Accession Number(s): [id number] cc: Jennifer Santillan MD; Lu Estrada MD Report Number: [id number]: Total DLP = 746.00 mGy-cm ADDENDUM This [...] W IV CON - 03/04/24 22:[address]/TN/SR - CT ABDOMEN PELVIS WO IV CON [...] in OV> 04/30/24522 DD/ 1 TD/TT: 04/30/24521 Small Brake Form Operator: [facility] External Provider IMG CT PROCEDURES Edited Result - Final * Urinalysis, Complete, with Reflex to Culture (04/30/2024 1:09 AM EST) Color Urine Yellow [facility] Appearance Urine Clear [facility] PH 5.5 5.0 - 9.0 [facility] Glucose Urine UA Negative Negative mg/dL [facility] Urine Blood Negative Negative [facility] Specific [place] - Urine 1.025 1.005 - 1.025 [facility] Urine Protein Negative Neg-Trace mg/dL [facility] Urine Ketones Negative Negative mg/dL [facility] Nitrite Urine Negative Negative [facility] Leukocyte Esterase Urine Negative Negative [facility] RBC Urine 0-2 0 - 2 /HPF [facility] Urine WBC 0-5 0 - 5 /HPF [facility] Urine Squamous Epithelial Cell 3-5 0 - 2 /HPF [facility] Urine Bacteria Trace None Seen [facility] Hyaline Casts, Urine 0-2 0 - 2 /LPF [facility] 04/30/2024 1:09 AM EST 04/30/2024 1:13 AM EST Narrative [facility] - 04/30/2024 1:21 AM EST [id number], Clean Catch us Generic External Data Provider LAB URINE ORDERAB LES Final Result [facility] [address] [place] [phone] * hCG, Total, Quantitative (04/30/2024 1:09 AM EST) HCG Quantitative <2 mIU/mL [facility] Comment:Weeks post LMP Appro ximate hCG(Last Menstrual Period) Range (mIU/ml)3 - 4 weeks 9 - 1304 - 5 weeks 75 - 2,6005 - 6 weeks 850 - 20,8006 - 7 weeks 4000 - 100,2007 - 12 weeks 11,500 - 289,76748 - 16 weeks 18,300 - 137,35611 - 29 weeks (2nd trimester) 1,400 - 53,16441 - 41 weeks (3rd trimester) 940 - [...] ORDERAB LES Final Result Performing Organization Address [facility] Co de Phone Number [facility] [address] [place] [phone] * (ABNORMAL) Lipase (04/30/2024 1:09 AM EST) Lipase 86(H) 8 - 78 U/L [facility] 04/30/2024 1:09 AM EST 04/30/2024 1:13 AM EST Generic External Data Provider LAB BLOOD ORDERAB LES Final Result Performing Organization Address [facility] Phone Number [facility] [address] [place] [phone] * POCT urinalysis dipstick manually resulted [...] 3:20 PM EDT) Triglycerides 88 <150 mg/dL [facility] Comment:Desirable Triglyceri de: less than 150 mg/dLBorderline High Triglyceride 150-199 mg/dLHigh Triglyceride: 200-499 mg/dLVery High Triglyceride: greater than or equal to 5OO mg/dL Cholesterol 183 <200 mg/dL [facility] Comment:Desirable Cholestero l: less than 200 mg/dLBorderline High Cholesterol: 200-239 mg/dLHigh Cholesterol: greater than 239 mg/dL LDL Cholesterol Calculated 126(H) <100 mg/dL [facility] Comment:Desirable LDL: less than 100 mg/dLNear Optimal/Above Optimal LDL: 110- 129 mg/dLBorderline High LDL: 130-159 mg/dLHigh LDL: 160-189 mg/dLVery High LDL: greater than or equal to 190 mg/dL HDL Cholesterol 40(L) >40 mg/dL [facility] Comment:Desirable HDL: great er than 40 mg/dL Note: This HDL assay may give artificially low results in patients with liver disease. Blood 01/22/2024 3:20 PM EDT 01/22/2024 4:05 PM EDT us Lu Estrada MD LAB BLOOD ORDERABLES Final Resul t [facility] [address] [place] [phone] * ThinPrep Imaging Pap and HPV mRNA E6/E7 with Reflex to HPV 16,18/45 (12/05/2023 12:00 AM EDT) HPV 16 RNA TNP [facility] HPV 18/45 RNA TNP [facility] HPV nRNA E6/E7 Not Detected Not Detected [facility] Comment:Methodology: Transcr iption-Mediated AmplificationThis assay detects E6/E7 viral messenger RNA (mRNA) from 14high-risk HPV types (16,18,31,33,35,39,45,51,52,56,58,59,66,68).Cervical sources are required for HPV testing.If a vaginal source from a patient who has had atotal hysterectomy with removal of cervix wassubmitted, please contact the testing laboratoryfor alternative testing options.For additional information, please refer tohttp://education.Platogo/faq/DNG492i1(This link if provided for information/educational purposes only.)THIS TEST WAS PERFORMED AT:[employer] [address] [phone] MILLS MD SOURCE: SEE NOTE [facility] Comment:None given Report Status: [facility] Clinical Information: SEE NOTE [facility] Comment:None given LMP: SEE NOTE [facility] Comment:NONE GIVEN Prev. PAP: SEE NOTE [facility] Comment:NONE GIVEN Prev. BX: SEE NOTE [facility] Comment:NONE GIVEN Statement Of Adequacy: SEE NOTE [facility] Comment:Satisfactory for tahmina luation.Endocervical/transformation zone componentpresent. General Categorization: [facility] Interpretation/Result: SEE NOTE [facility] Comment:Cytology Results: Ne gative for intraepitheliallesion or malignancy. Cytology Comment SEE NOTE [facility] Comment:This Pap test has be en evaluated with computerassisted technology. Seaming Inspector: SEE NOTE [facility] Comment:[place], CT(ASCP)CT scre ening location: [address] [address] Review Seaming Inspector: [facility] Pathologist [facility] PAP Infection [facility] See Note SEE NOTE [facility] Comment:EXPLANATORY NOTE:The Pap is a screening test for cervical cancer. It isnot a diagnostic test and is subject to false negativeand false positive results. It is most reliable when asatisfactory sample, regularly obtained, is submittedwith relevant clinical findings and history, and whenthe Pap result is evaluated along with historic andcurrent clinical information. 12/05/2023 12/05/2023 Narrative [facility] - 12/11/2023 1:12 PM EDT SEE SCANNED RESULTS IN EMR us Generic External Data Provider LAB PATHOLOGY ORD ERABLES Final Result [facility] [address] [place] [address] [phone] * HEPATITIS C AB W/REFL TO HCV RNA, QN, PCR (03/16/2020 4:32 PM EST) HEPATITIS C ANTIBODY NON-REACT CORA NON-REACT CORA [facility] INDEX 0.02 <1.00 [facility] Comment: ?? HCV antibody was non-reactive. There is no laboratory ?? evidence of HCV infection. ?? In most cases, no further action is required. However, if recent HCV exposure is suspected, a test for HCV RNA (test code 81083) is suggested. ?? For additional information please refer to http://[employer]/faq/KNN41h3 (This link is being provided for informational/ educational purposes only.) ?? 03/16/2020 4:32 PM EST us Lu Estrada MD HISTORICAL/NON ORDERABLE LABS Fi nal Result Performing Organization Address City/[facility]/ZIP Co de Phone Number [facility] [address] * HIV 1/2 ANTIGEN/ANTIBODY,FOURTH GENERATION W/RFL (03/16/2020 4:32 PM EST) HIV-1/2 ANTIGEN AND ANTIBODIES, 4TH GENERATION W/ REFLEX NON-REACT CORA NON-REACT CORA [facility] Comment: HIV-1 antigen and HIV-1/HIV-2 [...] ? For additional information please refer to http://[employer].Platogo/faq/ZRZ003 (This link is being provided for informational/ educational purposes only.) ? The performance of this assay has not been clinically validated in patients less than 2 years old. ?? 03/16/2020 4:32 PM EST us Lu Estrada MD LAB BLOOD ORDERABLES Final Resul t [facility] [address] from Last 3 Months or Most Recently Relevant to Health Maintenance Insurance [id number] STAND ADULT Care Teams Wood Dowel Machine Operator Relationship Specialty Start Date End Date Lu Estrada MD [address] [place] [address] PCP - General Family Medicine 03/27/18
--- OUTSIDE RECORDS SUMMARY | 2024-07-19 15:14 | XMS_ITS | Encounter Summary ---
Author Organization [employer] Address [address] [facility] 7t [place] [address] Care Team Providers Care Associate Professor Of Education Name Role Phone Lu Estrada MD Primary Care Provider [phone] Reason for Visit * Reason Comments Med Refill Encounter Details Date Type Department Care Team ([facility] st Contact Info) Description 03/09/[address] [facility] MEDICINE [address] [place] [address] Lu Estrada MD 230 [place], [place] [phone] Social History Tobacco Use Types Packs/Day Years [...] AM EDT Office Visit [facility] ADULT DENTAL 230 [place] [address] Raymon, Heidi 230 [place] [address] documented as of this encounter Visit Diagnoses Not on filedocumented in this encounter Additional Health Concerns Assessment Noted Time PHQ-9 Depression Total Score: 0 03/08/20 23 11:18 AM EST documented as of this encounter Care Teams Associate Professor Of Education Relationship Specialty Start Date End Date Lu Estrada MD 230 [place] [address] PCP - General Family Medicine 03/27/18 documented as of this encounter
--- OUTSIDE RECORDS SUMMARY | 2024-07-19 15:14 | XMS_ITS | Encounter Summary ---
Author Organization [employer] Address [address] [facility] 7t [place] [address] Care Team Providers Care Tipple Repairer Name Role Phone Lu Estrada MD Primary Care Provider [phone] Reason for Visit * Reason Onset Date Comments Letter for School/Work 04/27/2023 Encounter Details Date Type Department Care Team ([facility] Contact Info) Description 04/27/2023 Telephone [facility] MEDICINE [address] [place] [address] Lu Estrada MD 230 [place], [place] [phone] Letter for School/Work Social History Tobacco Use [...] Description 09/11/2024 10:00 AM EDT Office Visit [facility] ADULT DENTAL [address] [place] [address] Raymon, Heidi 230 [place] [address] documented as of this encounter Visit Diagnoses Not on filedocumented in this encounter Additional Health Concerns Assessment Noted Time PHQ-9 Depression Total Score: 0 03/08/20 23 11:18 AM EST documented as of this encounter Care Teams Tipple Repairer Relationship Specialty Start Date End Date Lu Estrada MD 230 [place] [address] PCP - General Family Medicine 03/27/18 documented as of this encounter
--- OUTSIDE RECORDS SUMMARY | 2024-07-19 15:14 | XMS_ITS | Encounter Summary ---
Author Organization [employer] Address [address] [facility] [address] 7t [place] [address] Care Team Providers Care Physics Technical Officer Name Role Phone Lu Estrada MD Primary Care Provider [phone] Reason for Visit * Reason Comments Med Refill Encounter Details Date Type Department Care Team ([facility] st Contact Info) Description 03/09/2023 Refill [facility] CHC MED & PEDS [address] [place], [place] [phone] Vandana Black, ANP [address] [place] [address] Social History Tobacco Use Types Packs/Day Years [...] Description 09/11/2024 10:00 AM EDT Office Visit [facility] ADULT DENTAL 230 [place] [address] Raymon, Heidi 230 [place] [address] documented as of this encounter Visit Diagnoses Not on filedocumented in this encounter Additional Health Concerns Assessment Noted Time PHQ-9 Depression Total Score: 0 03/08/20 23 11:18 AM EST documented as of this encounter Care Teams Physics Technical Officer Relationship Specialty Start Date End Date Lu Estrada MD 230 [place] [address] PCP - General Family Medicine 03/27/18 documented as of this encounter
--- OUTSIDE RECORDS SUMMARY | 2024-07-19 15:14 | XMS_ITS | Encounter Summary ---
Author Organization [employer] Address [address] [facility] 7t [place] [address] Care Team Providers Care Bander And Cellophaner Machine Helper Name Role Phone Lu Estrada MD Primary Care Provider [phone] Reason for Visit * Reason Comments Med Refill Encounter Details Date Type Department Care Team ([facility] st Contact Info) Description 03/09/2023 Refill [facility] MEDICINE 230 [place] [address] Lorri Eduardo DO 230 [place], [place] [phone] Social History Tobacco Use Types Packs/Day Years [...] Description 09/11/2024 10:00 AM EDT Office Visit [facility] ADULT DENTAL 230 [place] [address] Raymon, Heidi 230 [place] [address] documented as of this encounter Visit Diagnoses Not on filedocumented in this encounter Additional Health Concerns Assessment Noted Time PHQ-9 Depression Total Score: 0 03/08/20 23 11:18 AM EST documented as of this encounter Care Teams Bander And Cellophaner Machine Helper Relationship Specialty Start Date End Date Lu Estrada MD 230 [place] [address] PCP - General Family Medicine 03/27/18 documented as of this encounter
--- OUTSIDE RECORDS SUMMARY | 2024-07-19 15:14 | XMS_ITS | Encounter Summary ---
Author Organization [employer] Address [address] [facility] [facility] [address] 7[address] [place] [address] Care Team Providers Care Medical Technologist Clinical Name Role Phone Lu Estrada MD Primary Care Provider [phone] Encounter Details Date Type Department Care Team ([facility] st Contact Info) Description 05/29/2023 Abstract [facility] MEDICINE 230 [place] [address] Lu Estrada MD 230 [place] [address] Social History Tobacco Use Types Packs/Day Years [...] Description 09/11/2024 10:00 AM EDT Office Visit [facility] ADULT DENTAL 230 [place], [place] [phone] Raymon, Heidi 230 [place] [address] documented as of this encounter Procedures Procedure [...] documented as of this encounter Care Teams Medical Technologist Clinical Relationship Specialty Start Date End Date Lu Estrada MD 230 [place], [place] [phone] PCP - General Family Medicine 03/27/18 documented as of this encounter
--- OUTSIDE RECORDS SUMMARY | 2024-07-19 15:14 | XMS_ITS | Encounter Summary ---
Demographics Address [address] [facility] [address] [place] [address] Home Phone Work Phone Mobile Phone Email Address Preferred Language en Marital Status Single Uatsdin Affiliation Unknown Race Other Race Ethnic Group or Author Organization [employer] Address [address] [facility] 7t [place] [address] Care Team Providers Care Screen Printing Supervisor Name Role Phone Lu Estrada MD Primary Care Provider [phone] Encounter Details Date Type Department Care Team ([facility] Contact Info) Description 03/28/2024 Orders Only [facility] CHC MED & PEDS 505 [place] [address] Elliot Antunez MD 505 [place] [address] Social History Tobacco Use Types Packs/Day Years [...] Description 09/11/2024 10:00 AM EDT Office Visit [facility] ADULT DENTAL 230 [place] [address] Raymon, Heidi 230 [place] [address] documented as of this encounter Visit Diagnoses Not on filedocumented in this encounter Additional Health Concerns Assessment Noted Time PHQ-9 Depression Total Score: 5 01/22/20 24 3:06 PM EDT documented as of this encounter Care Teams Screen Printing Supervisor Relationship Specialty Start Date End Date Lu Estrada MD 230 [place] [address] PCP - General Family Medicine 03/27/18 documented as of this encounter
--- OUTSIDE RECORDS SUMMARY | 2024-07-19 15:14 | XMS_ITS | Encounter Summary ---
Author Organization [employer] Address [address] [facility] 7t [place] [address] Care Team Providers Care Science Intern Name Role Phone Lu Estrada MD Primary Care Provider [phone] Encounter Details Date Type Department Care Team ([facility] st Contact Info) Description 04/30/2024 Orders Only [facility] MEDICINE 230 [place] [address] Lu Estrada MD 230 [place], [place] [phone] Abnormal CT of the abdomen (Primary Dx); [...] the past 12 months, has t he [employer], gas, oil or water [employer] threatened to shut off services in your [...] 09/11/2024 10:00 AM EDT Office Visit [facility] ADULT DENTAL [address] [place] [address] Raymon, Heidi [address] [place] [address] documented as of this encounter Procedures Procedure Name Priority Date/Time Associated Diagnosis Comments BI MAMMOGRAM DIAGNOSTIC TOMOSYNTHESIS BILATERAL Routine 06/07/2024 10:00 AM EDT documented in this encounter Results * BI Mammogram Diagnostic Tomosynthesis Bilateral (06/07/2024 10:00 AM EDT) Anatomical Region Laterality Modality Breast Bilateral Mammography 06/07/2024 10:0 0 AM EDT Narrative 06/07/2024 11:42 AM EDT ? [facility] ? [address] ?[place] [address] ? Mammography Report ? Signed ? Patient: Mckeon Ramsey,Shruti ?MR#: [id number] ?? [id number] ? : 1985 ?Acct:[id number] ? Age/Sex: 39 / F ?ADM Date: 06/07/24 ? Loc: HO.MAMMO ? Attending Dr: Lu Estrada MD ? Ordering Physician: Lu Estrada MD ?Results: 1Negative ? Date of Service: 06/07/24 ?Follow Up: Mammo at 42 or e ?? arlier if clinically needed ? Procedure(s): MM tomosynthesis diagnostic BI ?? Accession Number(s): [id number] ? cc: Lu Estrada MD ? EXAMINATION: [...] DD/ 1000 ? TD/TT: 06/07/24 1018 ? Spa Director: ? Procedure Note Donkanwalinterpreter, Image - 06/07/2024 [facility] [address] [place] [address] Mammography Report Signed Patient: Ajay Winters#: [id number] : 1985Acct:[id number] Age/Sex: 39 / FADM Date: 06/07/24 Loc: LISA Attending Dr: Lu Estrada MD Ordering Physician: Lu Estrada MDResults: 1Negative Date of Service: 06/07/24Follow Up: Mammo at 40 or e arlier if clinically needed Procedure(s): MM tomosynthesis diagnostic BI Accession Number(s): [id number] cc: Lu Estrada MD EXAMINATION: MM DIAGNOSTIC [...] 06/07/24 1139 DD/ 1000 TD/TT: 06/07/24 1018 Spa Director: Lu Estrada MD IMG BI PROCEDURES Final [...] documented as of this encounter Care Teams Science Intern Relationship Specialty Start Date End Date Lu Estrada MD [address] [place] [address] PCP - General Family Medicine 03/27/18 documented as of this encounter
--- OUTSIDE RECORDS SUMMARY | 2024-07-19 15:14 | XMS_ITS | Encounter Summary ---
Author Organization [employer] Address [address] [facility] 7t [place] [address] Care Team Providers Care Cue Worker Name Role Phone Lu Estrada MD Primary Care Provider [phone] Reason for Visit * Reason Comments Med Refill Encounter Details Date Type Department Care Team ([facility] st Contact Info) Description 05/01/2023 Refill [facility] MEDICINE 230 [place] [address] Lorri Eduardo DO 230 [place], [place] [phone] Social History Tobacco Use Types Packs/Day Years [...] Description 09/11/2024 10:00 AM EDT Office Visit [facility] ADULT DENTAL [address] [place] [address] Raymon, Heidi 230 [place] [address] documented as of this encounter Visit Diagnoses Not on filedocumented in this encounter Additional Health Concerns Assessment Noted Time PHQ-9 Depression Total Score: 0 03/08/20 23 11:18 AM EST documented as of this encounter Care Teams Cue Worker Relationship Specialty Start Date End Date Lu Estrada MD 230 [place] [address] PCP - General Family Medicine 03/27/18 documented as of this encounter
--- OUTSIDE RECORDS SUMMARY | 2024-07-19 15:14 | XMS_ITS | Encounter Summary ---
Author Organization [employer] Address [address] [facility] 7t [place] [address] Care Team Providers Care Form Raiser Name Role Phone Lu Estrada MD Primary Care Provider [phone] Reason for Visit * Reason Onset Date Comments Appointment 07/05/2022 Encounter Details Date Type Department Care Team ([facility] st Contact Info) Description 07/05/2022 Telephone [facility] ADULT DENTAL 230 [place] [address] Raymon, Heidi [address] [place] [address] Appointment Social History Tobacco Use Types Packs/Day [...] Description 09/11/2024 10:00 AM EDT Office Visit [facility] ADULT DENTAL [address] [place], [place] [phone] Raymon, Heidi 230 [place], [place] [phone] documented as of this encounter Visit Diagnoses Not on filedocumented in this encounter Care Teams Form Raiser Relationship Specialty Start Date End Date Lu Estrada MD 230 [place], [place] [phone] PCP - General Family Medicine 03/27/18 documented as of this encounter
[2024-07-19 18:13] LABS: Bacterial Vaginosis PCR NEGATIVE (Negative); Candida Group PCR NOT DETECTED (Not Detect); Candida glab krusei PCR NOT DETECTED (Not Detect); Trichomonas vaginalis PCR NOT DETECTED (Not Detect)
[2024-07-20 05:34] LABS: CT PCR NOT DETECTED (Not Detect.); NG PCR NOT DETECTED (Not Detect.)
== END 2024-07-19 13:31 | disposition home or self-care (01) ==
LOC: HO.LNP 13:30
PROVIDERS: Visit Provider Advanced Practice Midwife
DX: N89.8 Other specified noninflammatory disorders of vagina (principal); Z11.3 Encounter for screening for infections with a predominantly sexual mode of transmission; Z98.51 Tubal ligation status; Z90.79 Acquired absence of other genital organ(s); Z98.890 Other specified postprocedural states
CPT/HCPCS: 81515; 87491; 87591; 99212

== ENCOUNTER 2024-07-19 13:30 | Outpatient (AMB) | payer MEDICAID, SELFPAY ==
--- NOTE | 2024-07-19 13:36 | A.OFFVIS_ITS ---
Vital Signs 07/19/24 13:45 Height 5 ft 6 in Weight 197 lb BMI 31.8 BP 118/72 Intake Visit Reasons: STD screen Butter Maker: Butter Maker Present (Margaret) Accompanied by: Self / Same As Patient Allergies No Known Allergies [No Known Allergies*] Allergy (Verified 07/19/24 13:45) Medication List - Last Reconciled 07/19/24 by Drea Burden CNM acetaminophen (Tylenol Extra Strength) 500 mg PO Q6H PRN acetaminophen 1,000 mg (2 x 500 mg) PO QID PRN albuterol sulfate 90 mcg/actuation (Proventil HFA) 1 inh inhalation QID dfeagcb-gwjkhbnxkjquw-jeemktyl 250-250-65 mg (Excedrin Migraine) 1 tab PO Q4-6H PRN pkxznlknzm-xqjlvscfdndxr-mbdt 50-300-40 mg (Fioricet) 1 cap PO Q8H PRN cholecalciferol (vitamin D3) (Vitamin D3) 50 mcg PO DAILY cyclobenzaprine 10 mg PO TID cyclobenzaprine 5 mg PO Q8H PRN 5 days epinephrine 0.3 mg (0.3 mL) IM Q10M PRN famotidine (Acid Student Support Advisor (famotidine)) 20 mg PO BID gabapentin 100 mg PO TID ibuprofen 600 mg PO Q6H PRN lidocaine 5% (Lidoderm) 1 patch topical DAILY PRN MDD remove after 12 hours lisinopril 10 mg PO DAILY loratadine (Allerclear) 10 mg PO DAILY PRN loratadine (Allergy Relief (loratadine)) 10 mg PO DAILY methocarbamol 1,000 mg (2 x 500 mg) PO Q8H PRN montelukast (Singulair) 10 mg PO BEDTIME naproxen (Naprosyn) 500 mg PO BID naproxen 500 mg PO BID PRN 10 days ondansetron 4 mg PO Q8H pantoprazole 40 mg PO BID polyethylene glycol 3350 (Miralax) 17 grams PO DAILY propranolol ER 60 mg PO BEDTIME topiramate 25 mg PO BEDTIME Is last menstrual period known: Yes Last menstrual period: 06/27/24 Post menopausal: No Patient : No HPI HPI STD screen: Details: Patient says she is actually here to check a vaginal discharge but she is using a cream that she could not remember the name of until she found a picture of it in her phone which was [employer]. She. says she last used it yesterday She said that the concern was a discharge that sometimes smelled, but it also had a little itching. She says she has been using a lot of soap and she thinks that might be the problem. On questioning and review patient had surgery to remove her tubes she said last January. She is also been to the emergency room recently and said that she was told to follow-up with Dr. Jett She says she has an annual exam with me coming up in October [facility] Medical History (Updated 07/19/24 @ 14:16 by Drea Burden CNM) Simple ovarian cyst Hypertension IBS (irritable bowel syndrome) Fibromyalgia Asthma Migraines Surgical History (Updated 07/19/24 @ 14:22 by Drea Burden CNM) Hx of colonoscopy History of esophagogastroduodenoscopy (EGD) History of loop electrical excision procedure (LEEP) Hx of tubal ligation Family History Mother Diabetes HTN (hypertension) Asthma Brother Asthma Social History Household Members: Children Are you a primary medicare specialist to a significant other at home: No (children 15,10,8 Mother will assist with care) Do you presently have visiting nurse or other home services: No Alcohol intake: never Patient Tobacco Use Status: Never used Tobacco Substance Use Type: Marijuana Patient : No Current occupational status: employed 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 Sexual orientation: Straight/Heterosexual Gender identity: Female Female Reproductive History Menstrual Age of Menarche: 15 Duration of menses: 3-5 days Date of last menstrual period: 06/27/24 control method: none Total pregnancies: 4 Full term: 3 Date of last pap smear: 10/25/22 (negative pap smear, negative hpv ) History of abnormal pap smear: Yes (2008 LEEP) Date of Mammogram: 06/06/24 (bi rad ) Physical Exam Vital Signs: Last Vital Signs BP 118/72 07/19/24 13:45 BMI result Body Mass Index 31.8 Other: External exam within normal limits vagina pink and moist no abnormal discharge seen scant white and clear discharge cervix multiparous pink smooth and status post LEEP. Cervix is long close thick mobile nontender uterus not enlarged adnexa nontender. Port scars from surgery are very well healed on abdomen. Assessment & Plan Assessment & Plan (1) Vaginal discharge: Comment: Has been using Monistat. Code(s): N89.8 - Other specified noninflammatory disorders of vagina Category: Medical (2) Encounter for screening examination for sexually transmitted disease: Code(s): Z11.3 - Encounter for screening for infections with a predominantly sexual mode of transmission Category: Medical (3) Hx of tubal ligation: Code(s): Z98.51 - Tubal ligation status Category: Surgical (4) Hx of bilateral salpingectomy: Comment: 2023 Code(s): Z90.79 - Acquired absence of other genital organ(s) Category: Surgical (5) H/O ovarian cystectomy: Comment: right, w salpingectomy Code(s): Z98.890 - Other specified postprocedural states; Z87.42 - Personal history of other diseases of the female genital tract Category: Surgical Plan Patient here for check on vaginal discharge questioned STI check. She has been using Monistat 7 cream that she gotten [employer] and last used it yesterday her discharge appears very healthy and within normal limits testing done for gonorrhea and chlamydia trichomoniasis bacterial vaginosis and yeast we will await results and let her know if anything is positive but it appears very good right now. Reviewed that she chose well and encouraged her to remember what she is using in her vagina. She also said that she was told she had to follow-up with Dr. Jett after an emergency room visit so I will let her schedule what ever she says she was told to do as the history is somewhat elusive today she has worked all night at [employer] and she was tired. We will see her for her annual exam and I did enter the surgical history in her history. Orders: Orders CT NG by PCR Today N89.8 - Other specified noninflammatory disorders of vagina Bacterial Vaginosis Panel Today N89.8 - Other specified noninflammatory disorders of vagina Coding Level of Care Code Est Pt Level 3 (91819) Diagnoses Vaginal discharge N89.8 Encounter for screening examination for sexually transmitted disease Z11.3 Hx of tubal ligation Z98.51 Hx of bilateral salpingectomy Z90.79 H/O ovarian cystectomy Z98.890; Z87.42
[2024-07-19 13:45] VITALS: BP 118/72; BMI 31.8
--- OUTSIDE RECORDS SUMMARY | 2024-07-19 14:10 | XMS_ITS | Encounter Summary ---
Author Organization [employer] Address [address] [place] [address] 7t [place] [address] Care Team Providers Care Classroom Paraprofessional Name Role Phone Lu Estrada MD Primary Care Provider [phone] Reason for Visit * Reason Onset Date Comments Appointment Request 12/23/2022 Derm Encounter Details Date Type Department Care Team ([facility] st Contact Info) Description 12/23/2022 Telephone [facility] [address] [place] [address] Lu Estrada MD [address] [place] [address] Appointment Request (Derm ) Social History Tobacco [...] Description 09/11/2024 10:00 AM EDT Office Visit [facility] ADULT DENTAL [address] [place], [place] [phone] Raymon, Heidi [address] [place] [address] documented as of this encounter Visit Diagnoses Not on filedocumented in this encounter Care Teams Classroom Paraprofessional Relationship Specialty Start Date End Date Lu Estrada MD [address] [place], [place] [phone] PCP - General Family Medicine 03/27/18 documented as of this encounter
--- OUTSIDE RECORDS SUMMARY | 2024-07-19 14:10 | XMS_ITS | Encounter Summary ---
Author Organization [employer] Address [address] [place] [address] 7 [place] [address] Care Team Providers Care Microbiology Professor Name Role Phone Lu Estrada MD Primary Care Provider [phone] Reason for Visit * Reason Comments Med Refill Encounter Details Date Type Department Care Team (Late st Contact Info) Description 04/19/2022 Refill [facility] [address] [place] [address] Leatha Chong MD [address] [place], [place] [phone] Primary hypertension (Primary Dx) Social History Tobacco [...] Description 09/11/2024 10:00 AM EDT Office Visit [facility] ADULT DENTAL [address] [place] [address] Heidi Ennis [address] [place] [address] documented as of this encounter Visit Diagnoses Diagnosis Primary hypertension- Primary Unspecified essential hypertension documented in this encounter Care Teams Microbiology Professor Relationship Specialty Start Date End Date Lu Estrada MD [address] [place] [address] PCP - General Family Medicine 03/27/18 documented as of this encounter
--- OUTSIDE RECORDS SUMMARY | 2024-07-19 14:10 | XMS_ITS | Encounter Summary ---
Author Organization [employer] Address [address] [place] [address] 7t [place] [address] Care Team Providers Care Wet Pour Supervisor Name Role Phone Lu Estrada MD Primary Care Provider [phone] Encounter Details Date Type Department Care Team (Late st Contact Info) Description 04/19/2022 Orders Only [facility] [address] [place] [address] Lu Estrada MD [address] [place] [address] Social History Tobacco Use Types Packs/Day Years [...] Office Visit [facility] ADULT DENTAL [address] [place] [address] Heidi Ennis [address] [place] [address] documented as of this encounter Visit Diagnoses Not on filedocumented in this encounter Care Teams Wet Pour Supervisor Relationship Specialty Start Date End Date Lu Estrada MD [address] [place] [address] PCP - General Family Medicine 03/27/18 documented as of this encounter
--- OUTSIDE RECORDS SUMMARY | 2024-07-19 14:10 | XMS_ITS | Encounter Summary ---
Author Organization [employer] Address [address] [facility] 7t [place] [address] Care Team Providers Care Cardiology Clinical Consultant Name Role Phone Lu Estrada MD Primary Care Provider [phone] Reason for Visit * Reason Onset Date Comments Referral 06/24/2024 Encounter Details Date Type Department Care Team ([facility] st Contact Info) Description 06/24/2024 Telephone [facility] [address] [place] [address] Lu Estrada MD [address] [place] [address] Referral Social History Tobacco Use Types Packs/Day [...] appt. She is asking for referral to [facility] to get it removed. Advised her of [facility] extended hours tomorrow, pt verbalized understanding. * Telephone Encounter - Heidi Hannah - 06/24/2024 4:03 PM EDT Tc from pt requesting referral for orthopedic. Pt stated PCP is aware of cyst on hand If any questions or concerns contact pt at [phone] documented in this encounter Plan of Treatment Upcoming Encounters Date Type Department Care Team (Late st Contact Info) Description 09/11/2024 10:00 AM EDT Office Visit [facility] ADULT DENTAL [address] [place] [address] Heidi Ennis [address] [place] [address] documented as of this encounter Visit Diagnoses Not on filedocumented in this encounter Additional Health Concerns Assessment Noted Time PHQ-9 Depression Total Score: 5 01/22/20 24 3:06 PM EDT documented as of this encounter Care Teams Cardiology Clinical Consultant Relationship Specialty Start Date End Date Lu Estrada MD [address] [place] [address] PCP - General Family Medicine 03/27/18 documented as of this encounter
--- OUTSIDE RECORDS SUMMARY | 2024-07-19 14:10 | XMS_ITS | Encounter Summary ---
Author Organization [employer] Address [address] [place] [address] 7 [place] [address] Care Team Providers Care Business Analysis Consultant Name Role Phone Lu Estrada MD Primary Care Provider [phone] Reason for Referral * Consultation (Routine) - Authorized Specialty Diagnoses / Procedures [facility] To Contact Orthopaedic Surgery Diagnoses Ganglion cyst of wrist, right Lu Estrada MD [address] [place] [address] Phone: tel: fax: [facility] Referral ID Status Reason Start Date Expiration Date Visits Requested Visits Authorized [id number] Authorized Specialty Services Required 06/25/2024 06/25/2025 12 12 Encounter Details Date Type Department Care Team (Late st Contact Info) Description 06/24/2024 Orders Only [facility] [address] [place] [address] Lu Estrada MD [address] [place], [place] [phone] Ganglion cyst of wrist, right (Primary Dx) [...] Office Visit [facility] ADULT DENTAL [address] [place] [address] Raymon, Heidi [address] [place] [address] Scheduled Referrals Name Type Priority Associated Diagnoses [...] documented as of this encounter Care Teams Business Analysis Consultant Relationship Specialty Start Date End Date Lu Estrada MD [address] [place] [address] PCP - General Family Medicine 03/27/18 documented as of this encounter
--- OUTSIDE RECORDS SUMMARY | 2024-07-19 14:10 | XMS_ITS | Encounter Summary ---
Author Organization [employer] Address [address] [facility] 7t [place] [address] Care Team Providers Care Spring Floor Service Worker Name Role Phone Lu Estrada MD Primary Care Provider [phone] Encounter Details Date Type Department Care Team (Late Contact Info) Description 10/17/2022 Abstract [facility] ADULT DENTAL [address] [place], [place] [phone] Heidi Ennis [address] [place] [address] Social History Tobacco Use Types Packs/Day Years [...] Description 09/11/2024 10:00 AM EDT Office Visit [facility] ADULT DENTAL [address] [place], [place] [phone] Heidi Ennis [address] [place] [address] documented as of this encounter Visit Diagnoses Not on filedocumented in this encounter Care Teams Spring Floor Service Worker Relationship Specialty Start Date End Date Lu Estrada MD 230 [place] [address] PCP - General Family Medicine 03/27/18 documented as of this encounter
--- OUTSIDE RECORDS SUMMARY | 2024-07-19 14:10 | XMS_ITS | Encounter Summary ---
Author Organization [employer] Address [address] [facility] 7t [place] [address] Care Team Providers Care Casing Finisher And Stuffer Name Role Phone Lu Estrada MD Primary Care Provider [phone] Encounter Details Date Type Department Care Team (Late Contact Info) Description 10/17/2022 Abstract [facility] ADULT DENTAL 230 [place], [place] [phone] Heidi Ennis [address] [place] [address] Social History Tobacco Use Types Packs/Day Years [...] Description 09/11/2024 10:00 AM EDT Office Visit [facility] ADULT DENTAL [address] [place], [place] [phone] Heidi Ennis [address] [place] [address] documented as of this encounter Visit Diagnoses Not on filedocumented in this encounter Care Teams Casing Finisher And Stuffer Relationship Specialty Start Date End Date Lu Estrada MD [address] [place] [address] PCP - General Family Medicine 03/27/18 documented as of this encounter
--- OUTSIDE RECORDS SUMMARY | 2024-07-19 14:10 | XMS_ITS | Encounter Summary ---
Author Organization [employer] Address [address] [facility] 7t [place] [address] Care Team Providers Care Hand Hardener Name Role Phone Lu Estrada MD Primary Care Provider [phone] Encounter Details Date Type Department Care Team ([facility] Contact Info) Description 03/18/2022 Abstract [facility] ADULT DENTAL [address] [place] [address] Viet Kellogg DDS [address] [place] [address] Social History Tobacco Use Types Packs/Day Years [...] Upcoming Encounters Date Type Department Care Team ([facility] Contact Info) Description 09/11/2024 10:00 AM EDT Office Visit [facility] ADULT DENTAL [address] [place] [address] Heidi Ennis [address] [place] [address] documented as of this encounter Visit Diagnoses Not on filedocumented in this encounter Care Teams Hand Hardener Relationship Specialty Start Date End Date Lu Estrada MD 230 [place] [address] PCP - General Family Medicine 03/27/18 documented as of this encounter
--- OUTSIDE RECORDS SUMMARY | 2024-07-19 14:11 | XMS_ITS | Encounter Summary ---
Author Organization [employer] Address [address] [place] [address] 7t [place] [address] Care Team Providers Care Extrusion Press Supervisor Name Role Phone Lu Estrada MD Primary Care Provider [phone] Encounter Details Date Type Department Care Team (Late st Contact Info) Description 04/04/2022 Abstract [facility] ADULT DENTAL [address] [place] [address] Viet Kellogg DDS [address] [place] [address] Social History Tobacco Use Types Packs/Day Years [...] Description 09/11/2024 10:00 AM EDT Office Visit [facility]ULT D[facility] [address] [place] [address] Heidi Ennis [address] [place] [address] documented as of this encounter Visit Diagnoses Not on filedocumented in this encounter Care Teams Extrusion Press Supervisor Relationship Specialty Start Date End Date Lu Esrtada MD 230 [place] [address] PCP - General Family Medicine 03/27/18 documented as of this encounter
--- OUTSIDE RECORDS SUMMARY | 2024-07-19 14:11 | XMS_ITS | Encounter Summary ---
Author Organization [employer] Address [address] [facility] 7t [place] [address] Care Team Providers Care Cord Splicer Name Role Phone Lu Estrada MD Primary Care Provider [phone] Reason for Visit * Reason Onset Date Comments Appointment 07/05/2022 Encounter Details Date Type Department Care Team ([facility] st Contact Info) Description 07/05/2022 Telephone [facility] ADULT DENTAL [address] [place] [address] Raymon, Heidi [address] [place] [address] Appointment Social History Tobacco Use Types Packs/Day [...] 09/11/2024 10:00 AM EDT Office Visit [facility] ADULT [facility] [address] [place], [place] [phone] Raymon, Heidi [address] [place], [place] [phone] documented as of this encounter Visit Diagnoses Not on filedocumented in this encounter Care Teams Cord Splicer Relationship Specialty Start Date End Date Lu Estrada MD 230 [place], [place] [phone] PCP - General Family Medicine 03/27/18 documented as of this encounter
--- OUTSIDE RECORDS SUMMARY | 2024-07-19 14:11 | XMS_ITS | Encounter Summary ---
Author Organization [employer] Address [address] [place] [address] 7t [place] [address] Care Team Providers Care Blender/Braze Applicator Name Role Phone uL Estrada MD Primary Care Provider [phone] Encounter Details Date Type Department Care Team (Latest Contact Info) Description 01/01/2019 Abstract [facility] CONVERSIONS Dental, Provider, DDS Social History [...] 10:00 AM EDT Office Visit [facility] ADULT DENTAL [address] [place] [address] Raymon, Heidi [address] [place] [address] documented as of this encounter Visit Diagnoses Not on filedocumented in this encounter Care Teams Blender/Braze Applicator Relationship Specialty Start Date End Date Lu Estrada MD 230 [place] [address] PCP - General Family Medicine 03/27/18 documented as of this encounter
--- OUTSIDE RECORDS SUMMARY | 2024-07-19 14:11 | XMS_ITS | Encounter Summary ---
Author Organization [employer] Address [address] [place] [address] 7t [place] [address] Care Team Providers Care Ballet Company Member Name Role Phone Lu Estrada MD Primary Care Provider [phone] Encounter Details Date Type Department Care Team (Latest Contact Info) Description 07/08/2020 Abstract [facility] CONVERSION[facility] Dental, Provider, DDS Social [...] Description 09/11/2024 10:00 AM EDT Office Visit [facility] ADULT DENTAL [address] [place] [address] Raymon, Heidi [address] [place] [address] documented as of this encounter Visit Diagnoses Not on filedocumented in this encounter Care Teams Ballet Company Member Relationship Specialty Start Date End Date Lu Estrada MD [address] [place] [address] PCP - General Family Medicine 03/27/18 documented as of this encounter
--- OUTSIDE RECORDS SUMMARY | 2024-07-19 14:11 | XMS_ITS | Encounter Summary ---
Author Organization [employer] Address [address] 7[address] [place] [address] Care Team Providers Care Odd Job Worker Name Role Phone Lu Estrada MD Primary Care Provider [phone] Encounter Details Date Type Department Care Team ([facility] Contact Info) Description 07/17/2024 Telephone [facility] [address] [place] [address] Lu Estrada MD [address] [place], [place] [phone] Social History Tobacco Use Types Packs/Day Years [...] encounter Miscellaneous Notes * Telephone Encounter - Marlin Salazar - 07/17/2024 10:34 AM EDT FYI to PCP - patient discharged from [facility] - Hypertension effective today. Patient has had >2 consecutive canceled/no showed pharmacy visits and thus will be removed from the outreach list per existing workflow. A letter will be mailed to the patient. If, upon further discussion, you feel patient would benefit from pharmacy services please issue a new referral to re-enroll. Thank you. documented in this encounter Plan of Treatment Upcoming Encounters Date Type Department Care Team (Late st Contact Info) Description 09/11/2024 10:00 AM EDT Office Visit [facility] [address] [place], [place] [phone] Raymon, Heidi [address] [place] [address] documented as of this encounter Visit Diagnoses Not on filedocumented in this encounter Additional Health Concerns Assessment Noted Time PHQ-9 Depression Total Score: 5 01/22/20 24 3:06 PM EDT documented as of this encounter Care Teams Odd Job Worker Relationship Specialty Start Date End Date Lu Estrada MD [address] [place] [id number] PCP - General Family Medicine 03/27/18 documented as of this encounter
--- OUTSIDE RECORDS SUMMARY | 2024-07-19 14:11 | XMS_ITS | Encounter Summary ---
Author Organization [employer] Address [address] [facility] 7t [place] [address] Care Team Providers Care Screed Person Name Role Phone Lu Estrada MD Primary Care Provider [phone] Reason for Visit * Reason Comments Med Refill Encounter Details Date Type Department Care Team ([facility] st Contact Info) Description 03/09/2023 Refill [facility] [address] [place] [address] Lu Estrada MD [address] [place], [place] [phone] Social History Tobacco Use Types Packs/Day Years [...] Description 09/11/2024 10:00 AM EDT Office Visit [facility] ADULT DENTAL [address] [place] [address] Raymon, Heidi [address] [place] [address] documented as of this encounter Visit Diagnoses Not on filedocumented in this encounter Additional Health Concerns Assessment Noted Time PHQ-9 Depression Total Score: 0 03/08/20 23 11:18 AM EST documented as of this encounter Care Teams Screed Person Relationship Specialty Start Date End Date Lu Estrada MD [address] [place] [address] PCP - General Family Medicine 03/27/18 documented as of this encounter
--- OUTSIDE RECORDS SUMMARY | 2024-07-19 14:11 | XMS_ITS | Encounter Summary ---
Author Organization [employer] Address [address] [facility] 7t [place] [address] Care Team Providers Care Clinical Education Assistant Name Role Phone Lu Estrada MD Primary Care Provider [phone] Reason for Visit * Reason Comments Med Refill Encounter Details Date Type Department Care Team ([facility] st Contact Info) Description 03/09/2023 Refill [facility] [address] [place] [address] Lorri Eduardo DO [address] [place], [place] [phone] Social History Tobacco Use Types Packs/Day Years [...] Description 09/11/2024 10:00 AM EDT Office Visit [facility] ADULT DENTAL [address] [place] [address] Raymon, Heidi [address] [place] [address] documented as of this encounter Visit Diagnoses Not on filedocumented in this encounter Additional Health Concerns Assessment Noted Time PHQ-9 Depression Total Score: 0 03/08/20 23 11:18 AM EST documented as of this encounter Care Teams Clinical Education Assistant Relationship Specialty Start Date End Date Lu Estrada MD [address] [place] [address] PCP - General Family Medicine 03/27/18 documented as of this encounter
--- OUTSIDE RECORDS SUMMARY | 2024-07-19 14:11 | XMS_ITS | Encounter Summary ---
Author Organization [employer] Address [address] [facility] 7t [place] [address] Care Team Providers Care [employer] Digital Ad Sales Name Role Phone Lu Estrada MD Primary Care Provider [phone] Reason for Visit * Reason Comments Med Refill Encounter Details Date Type Department Care Team (Late st Contact Info) Description 06/18/2022 Refill [facility] [address] [place] [address] Vandana Black, ANP [address] [place] [address] Social History Tobacco Use Types Packs/Day Years [...] Description 09/11/2024 10:00 AM EDT Office Visit [facility] ADULT DENTAL [address] [place] [address] Raymon, Heidi [address] [place] [address] documented as of this encounter Visit Diagnoses Not on filedocumented in this encounter Care Teams Svp Digital Ad Sales Relationship Specialty Start Date End Date Lu Estrada MD [address] [place] [address] PCP - General Family Medicine 03/27/18 documented as of this encounter
--- OUTSIDE RECORDS SUMMARY | 2024-07-19 14:11 | XMS_ITS | Encounter Summary ---
Author Organization [employer] Address [address] [facility] [facility] [address] [place] [address] Care Team Providers Care Scrap Preparation Supervisor Name Role Phone Lu Estrada MD Primary Care Provider [phone] Encounter Details Date Type Department Care Team ([facility] st Contact Info) Description 05/29/2023 Abstract [facility] MED[facility]INE [address] [place] [address] Lu Estrada MD [address] [place] [address] Social History Tobacco Use Types Packs/Day Years [...] [facility] [address] [place], [place] [phone] Raymon, Heidi [address] [place] [address] documented as of this encounter Procedures Procedure [...] documented as of this encounter Care Teams Scrap Preparation Supervisor Relationship Specialty Start Date End Date Lu Estrada MD [address] [place], [place] [phone] PCP - General Family Medicine 03/27/18 documented as of this encounter
--- OUTSIDE RECORDS SUMMARY | 2024-07-19 14:11 | XMS_ITS | Encounter Summary ---
Demographics Address [address] [facility] [address] [place] [address] Home Phone Work Phone Mobile Phone Email Address Preferred Language en Marital Status Single Anabaptist Affiliation Unknown Race Other Race Ethnic Group or Author Organization [employer] Address [address] [facility] 7t [place] [address] Care Team Providers Care [employer] Sprayer Name Role Phone Lu Estrada MD Primary Care Provider [phone] Encounter Details Date Type Department Care Team ([facility] Contact Info) Description 03/28/2024 Orders Only [facility] [address] [place] [address] Elliot Antunez MD [address] [place] [address] Social History Tobacco Use Types Packs/Day Years [...] 09/11/2024 10:00 AM EDT Office Visit [facility] ADULT DENTAL [address] [place] [address] Raymon, Heidi [address] [place] [address] documented as of this encounter Visit Diagnoses Not on filedocumented in this encounter Additional Health Concerns Assessment Noted Time PHQ-9 Depression Total Score: 5 01/22/20 24 3:06 PM EDT documented as of this encounter Care Teams [employer] Sprayer Relationship Specialty Start Date End Date Lu Estrada MD [address] [place] [address] PCP - General Family Medicine 03/27/18 documented as of this encounter
--- OUTSIDE RECORDS SUMMARY | 2024-07-19 14:11 | XMS_ITS | Encounter Summary ---
Author Organization [employer] Address [address] [place] [address] 7 [place] [address] Care Team Providers Care Accounting Clerks Supervisor Name Role Phone Lu Estrada MD Primary Care Provider [phone] Encounter Details Date Type Department Care Team (Late st Contact Info) Description 02/23/2022 Abstract [facility] ADULT DENTAL [address] [place] [address] Dental, Provider, DDS Social History Tobacco Use [...] [facility] ADULT DENTAL [address] [place] [address] RaymonMcHeidi [address] [place] [address] documented as of this encounter Procedures Procedure Name Priority Date/Time Associated Diagnosis Comments 14 O AMALGAM FILLING Routine 02/23/2022 12:00 AM EST documented in this encounter Visit Diagnoses Not on filedocumented in this encounter Care Teams Accounting Clerks Supervisor Relationship Specialty Start Date End Date Lu Estrada MD [address] [place] [address] PCP - General Family Medicine 03/27/18 documented as of this encounter
--- OUTSIDE RECORDS SUMMARY | 2024-07-19 14:11 | XMS_ITS | Encounter Summary ---
Author Organization [employer] Address [address] [facility] 7t [place] [address] Care Team Providers Care Bar Tender Name Role Phone Lu Estrada MD Primary Care Provider [phone] Reason for Visit * Reason Comments Med Refill Encounter Details Date Type Department Care Team ([facility] st Contact Info) Description 05/01/2023 Refill [facility] [address] [place] [address] Lorri Eduardo DO [address] [place], [place] [phone] Social History Tobacco Use Types Packs/Day Years [...] Description 09/11/2024 10:00 AM EDT Office Visit [facility] ADULT DENTAL [address] [place] [address] Raymon, Heidi [address] [place] [address] documented as of this encounter Visit Diagnoses Not on filedocumented in this encounter Additional Health Concerns Assessment Noted Time PHQ-9 Depression Total Score: 0 03/08/20 23 11:18 AM EST documented as of this encounter Care Teams Bar Tender Relationship Specialty Start Date End Date Lu Estrada MD [address] [place] [address] PCP - General Family Medicine 03/27/18 documented as of this encounter
--- OUTSIDE RECORDS SUMMARY | 2024-07-19 14:11 | XMS_ITS | Clinical Summary ---
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; advised to contact her surgeon or HELP DESK OPERATOR Atypical chest pain 07/13/2022 Enlarged tonsils 07/13/2022 [...] Plan (04/25/2022 4:36 PM EST): -followed by [facility] GI continue famotidine -continue pantoprazole -avoid NSAIDS IBS (irritable bowel syndrome) 04/21/2022 Assessment & Plan (01/28/2024 4:45 PM EST): - followed by [facility] GI last seen in May 2023 - s/p EGD and colonoscopy -GI prescribed dicyclomine, simethicone, and Creon, but she is not taking it; recommended to discuss with GI specialist before discontinuing it -work on stress reduction Assessment & Plan (05/05/2023 6:42 AM EST): - followed by [facility] GI last seen in Nov 2022 - [...] (04/29/2022 6:27 PM EST): - followed by [facility] GI last seen on 03/24/22 -continue dicyclomine [...] Plan (04/28/2024 4:12 PM EST): -seen by [facility] neurologist in Apr 2019 -seen by [facility] neurology in Dec 2022 -04/23/[address] [...] Plan (01/28/2024 4:50 PM EST): -seen by [facility] neurologist in Apr 2019 -seen by [facility] neurology in Dec 2022 -04/23/[address] [...] Plan (05/05/2023 6:51 AM EST): -seen by [facility] neurologist in Apr 2019 -seen by [facility] neurology in Dec 2022 -04/23/[address] [...] Encounters Date Type Department Care Team Description 07/17/2024 Telephone [facility] MEDICINE [address] [place] [address] Lu Estrada MD 07/12/[address] [address] Lu Estrada MD 06/24/2024 Orders Only [address] [address] Lu Estrada MD Ganglion cyst of wrist, right (Primary Dx) 06/24/2024 Telephone [facility] [address] [place] [address] Lu Estrada MD Referral 06/18/2024 9:45 AM EDT Office Visit [facility] OPTOMETRY [address] [place] [address] TarkaAziza, OD Dry eyes, bilateral (Primary Dx); Hypermetropia, bilateral 06/18/2024 Patient Outreach [facility] [address] [place] [address] Lu Estrada MD Transition Of Care (Tcm) 06/18/2024 Travel 06/07/2024 Population Health Risk Score Community Care [facility] (C3) Department [address] [phone] Provider, Population Health Generic 06/05/2024 Refill [facility] MEDIC[facility] [address] [place] [address] Lu Estrada MD Moderate persistent asthma without complication 05/21/2024 Telephone [facility] [address] [place] [address] Lu Estrada MD NO SHOW 05/15/[address] [address] Lu Estrada MD Chart Prep 05/09/2024 Patient Outreach [address] [address] Lu Estrada MD Transition Of Care (Tcm) 05/08/2024 Orders Only GENERIC EXTERNAL DATA DEPARTMENT Provider, Generic External Data 05/01/[address] [address] Ericka Pan RN Results; Appointment Request 04/30/2024 Patient Outreach [address] [address] Lu Estrada MD Transition Of Care (Tcm) 04/30/2024 Orders Only [address] [address] Lu Estrada MD Abnormal CT of the abdomen (Primary Dx); Breast density 04/30/2024 Orders Only GENERIC EXTERNAL DATA DEPARTMENT Provider, Generic External Data 04/29/2024 10:15 AM EST Office Visit [address] [address] Lu Estrada MD Primary hypertension (Primary Dx); Moderate persistent asthma without complication; Fibromyalgia; Chronic migraine without aura without status migrainosus, not intractable; Left sided abdominal pain; Chronic pain of left knee 04/29/2024 Travel 04/24/[address] [address] Jordyn Brewster MA chart prep from Last 3 Months Immunizations Name Administration Dates Next Due DTaP 11/04/2011, 2,05/31/1991,05/09,02/05/1988,1987 Hep A, Adult 12/26/2017 Hep B, Adolescent or Pediatric 11/16/1999,1998 Hep B, adult 12/26/2017 Hib ([facility]) 05/09/1990 IPV 01/26/1988 Influenza injectable quadriv alent [...] 09/11/2024 10:00 AM EDT Office Visit [facility] ADULT DENTAL [address] [place] [address] Raymon, Heidi [address] [place] [address] Health Maintenance Due Date Last Done Comments [...] Procedure Name Priority Date/Time Associated Diagnosis Comments XR KNEE 1-2 VIEWS LEFT Routine 07/12/2024 9:25 AM EDT Chronic pain of left knee BI US BREAST LIMITED RIGHT Routine 06/07/2024 [...] Recently Relevant to Health Maintenance Results * XR Knee 1-2 Views Left (07/12/2024 9:25 AM EDT) Anatomical Region Laterality Modality Lower Extremities, Knee Left [facility] 07/12/2024 9:25 AM EDT Narrative 07/12/2024 9:26 AM EDT ? [facility] ?[address] ?[place] [address] ?XRay Report ? Signed ? Patient: Mckeon Ramsey,Shruti ?MR#: MM ?? [id number] ? : 1985 ?Acct:[id number] ? Age/Sex: 39 / F ?ADM Date: 07/11/ ? Loc: HO.XRAY ? Attending Dr: Lu Estrada MD ? Ordering Physician: Lu Estrada MD ?? Date of Service: 07/11/24 ?? Procedure(s): XR knee LT 2V ?? Accession Number(s): [id number] ? cc: Lu Estrada MD ? CLINICAL HISTORY: left knee pain ? 2 view left knee ? Comparison: None ? Findings: ?? No acute fracture or dislocation is identified. The femorotibial joint ?? space is preserved. Soft tissue structures appear within normal limits. ? IMPRESSION: ?? 1. No acute osseous abnormality is identified. ? This document has been electronically signed by: Robby Michelle on ?? 07/12/2024 09:25:52 ? Dictated By: ?Robby Michelle MD ? Signed By: ?<Electronically signed by Robby Michelle MD in OV> ? 07/12/24925 ? DD/ 4 ? TD/TT: 07/12/24924 ? Photo Finisher: ? Procedure Note Donotuseinterpreter, Image - 07/12/[address] [address] XRay Report Signed Patient: Ajay Winters#: [id number] : 1985Acct:[id number] Age/Sex: 39 / FADM Date: 07/11/24 Loc: HO.ДМИТРИЙ Attending Dr: Lu Estrada MD Ordering Physician: Lu Estrada MD Date of Service: 07/11/24 Procedure(s): XR knee LT 2V Accession Number(s): [id number] cc: Lu Estrada MD CLINICAL HISTORY: left knee pain 2 view left knee Comparison: None Findings: No acute fracture or dislocation is identified. The femorotibial joint space is preserved. Soft tissue structures appear within normal limits. IMPRESSION: 1. No acute osseous abnormality is identified. This document has been electronically signed by: Robby Michelle on 07/12/2024 09:25:52 Dictated By: Robby Michelle MD Signed By: <Electronically signed by Robby Michelle MD in OV> 07/12/24925 DD/ 4 TD/TT: 07/12/24924 Photo Finisher: us Lu Estrada MD IMG XR PROCEDURES Edited Result - Final * BI US Breast Limited Right (06/07/2024 10:44 AM EDT) Anatomical Region Laterality Modality Breast Right Ultrasound 06/07/2024 10:4 4 AM EDT Narrative 06/07/2024 11:42 AM EDT ? [facility] ? [address] ?[place] [address] ? Ultrasound Report ? Signed ? Patient: Mckeon Ramsey,Shruti ?MR#: MM ?? [id number] ? : 1985 ?Acct:[id number] ? Age/Sex: 39 / F ?ADM Date: 06/07/24 ? Loc: HO.MAMMO ? Attending Dr: Lu Estrada MD ? Ordering Physician: Lu Estrada MD ?? Date of Service: 06/07/24 ?? Procedure(s): US breast RT limited mamm only ?? Accession Number(s): [id number] ? cc: Lu Estrada MD ? EXAMINATION: [...] their next mammogram. ? Electronically signed by: ??Devoar Caal DO ??06/07/2024 11:39 AM EDT ?? RP ? Dictated By: ?Devora Caal DO ? Signed By: ?<Electronically signed by Devora Caal, DO in OV> ? 06/07/24 1139 ? DD/ 1044 ? TD/TT: 06/07/24 1100 ? Photo Finisher: ? Procedure Note Donotuseinterpreter, Image - 06/07/2024 [facility] [address] [place] [address] Ultrasound Report Signed Patient: Ajay Winters#: [id number] : 1985Acct:[id number] Age/Sex: 39 / FADM Date: 06/07/24 Loc: HO.MAMMO Attending Dr: Lu Estrada MD Ordering Physician: Lu Estrada MD Date of Service: 06/07/24 Procedure(s): US breast RT limited mamm only Accession Number(s): [id number] cc: Lu Estrada MD EXAMINATION: MM DIAGNOSTIC [...] 06/07/24 1139 DD/ 1044 TD/TT: 06/07/24 1100 Photo Finisher: us Lu Estrada MD IMG US PROCEDURES Final Result * BI Mammogram Diagnostic Tomosynthesis Bilateral (06/07/2024 10:00 AM EDT) Anatomical Region Laterality Modality Breast Bilateral Mammography 06/07/2024 10:0 0 AM EDT Narrative 06/07/2024 11:42 AM EDT ? [facility] [place] ? [address] ?[place] [address] ? Mammography Report ? Signed ? Patient: Mckeon Ramsey,Shruti ?MR#: MM ?? [id number] ? : 1985 ?Acct:[id number] ? Age/Sex: 39 / F ?ADM Date: /14/25 ? Loc: HO.MAMMO ? Attending Dr: Lu Estrada MD ? Ordering Physician: Lu Estrada MD ?Results: 1Negative ? Date of Service: /14/25 ?Follow Up: Mammo at 42 or e ?? arlier if clinically needed ? Procedure(s): MM tomosynthesis diagnostic BI ?? Accession Number(s): [id number] ? cc: Lu Estrada MD ? EXAMINATION: [...] next mammogram. ? Electronically signed by: ??Devora Tonysherrie DO ??06/07/2024 11:39 AM EDT ?? RP ? Dictated By: ?Devora Caal DO ? Signed By: ?<Electronically signed by Devora Caal, DO in OV> ? 06/07/24 1139 ? DD/ 1000 ? TD/TT: 06/07/24 1018 ? Photo Finisher: ? Procedure Note Amarjit, Image - 06/07/2024 [facility] [address] [place] [address] Mammography Report Signed Patient: Ajay Winters#: MM [id number] : 1985Acct:[id number] Age/Sex: 39 / FADM Date: 06/07/24 Loc: HO.MAMMO Attending Dr: Lu Estrada MD Ordering Physician: Lu Estrada MDResults: 1Negative Date of Service: 06/07/24Follow Up: Mammo at 42 or e arlier if clinically needed Procedure(s): MM tomosynthesis diagnostic BI Accession Number(s): [id number] cc: Lu Estrada MD EXAMINATION: MM DIAGNOSTIC [...] 06/07/24 1139 DD/ 1000 TD/TT: 06/07/24 1018 Photo Finisher: us Lu Estrada MD IMG BI PROCEDURES Final Result * (ABNORMAL) CBC auto differential (05/08/2024 10:33 PM EST) Only the most recent of2 resultswithin the time period is included. White Blood Count 6.7 4.8 - 10.8 X10*3/uL [facility] Red Blood Count 4.56 4.20 - 5.50 X10*6/uL [facility] Hemoglobin 13.1 12.0 - 16.0 g/dl [facility] Hematocrit 39.4 37.0 - 47.0 % [facility] Mean Corpuscular Volume 86.4 80.0 - 98.0 fL [facility] Mean Corpuscular Hemoglobin 28.7 27.0 - 33.0 pg [facility] Mean Corpuscular HGB Conc 33.2 31.0 - 35.0 g/dl [facility] Red Cell Distribution Width 13.7 11.0 - 16.0 % [facility] Platelet Count 253 160 - 400 X10*3/uL [facility] Mean Platelet Volume 10.6 9.4 - 12.3 fL [facility] Neutrophils Percent Auto 41.0(L) 45 - 73 % [facility] Imm Gran Pct Auto 0.0 0.0 - 0.4 % [facility] Lymphocytes Percent Auto 50.0(H) 20 - 40 % [facility] Monocytes Percent Auto 7.7 2 - 11 % [facility] Eosinophils Percent Auto 0.8 0 - 4 % [facility] Basophils Percent Auto 0.5 0 - 2 % [facility] NRBC Pct Auto 0.0 0.0 - 0.2 /100WBC [facility] Neutrophils Absolute Auto 2.7 2.0 - 8.3 x10*3/uL [facility] Imm Gran Abs Auto 0.00 0.00 - 0.03 X10*3/uL [facility] Lymphocytes Absolute Auto 3.3 1.2 - 4.9 X10*3/uL [facility] Monocytes Absolute Auto 0.5 0.1 - 1.2 X10*3/uL [facility] Eosinophils Absolute Auto 0.1 0.0 - 0.4 X10*3/uL [facility] Basophils Absolute Auto 0.0 0.0 - 0.2 X10*3/uL [facility] NRBC Abs Auto 0.000 0.0 - 0.012 X10*3/uL [facility] 05/08/2024 10:3 3 PM EST 05/08/2024 10:36 PM EST us Generic External Data Provider LAB BLOOD ORDERAB LES Final Result [facility] [address] [place] [address] [phone] * (ABNORMAL) Comprehensive Metabolic Panel (05/08/2024 10:33 PM EST) Only the most recent of2 resultswithin the time period is included. Sodium 137 135 - 145 mmol/L [facility] Potassium 3.7 3.3 - 5.1 mmol/L [facility] Chloride 107 96 - 108 mmol/L [facility] Carbon Dioxide 21(L) 22 - 29 mmol/L [facility] Anion Gap 13 12 - 20 [facility] Urea Nitrogen (BUN) 14 9 - 16 mg/dL [facility] Creatinine, Serum 0.91 0.5 - 1.4 mg/dL [facility] Creatinine Clr Calc Pharmacy 95.2 [facility] Comment:Provided height and weight: 167.64 cm,87.5 kg.eGFR (calculated from the MDRD study equation) and eCrCl(calculated from the Cockcroft-Gault equation) are based ondifferent parameters and may not yield comparable results.If eCrCl result is absurd, please check patient'sheight/weight. Estimated Glomerular Filt Rate >60 [facility] Comment:Chronic Kidney Disea se: Estimated GFR < 60 mL/min/1.95m5Ppceul Kidney Disease: Estimated GFR < 15 mL/min/1.73m2 Glucose 103 60 - 115 mg/dL [facility] Calcium 9.0 8.4 - 10.2 mg/dL [facility] Bilirubin, Total 0.8 0.0 - 1.0 mg/dL [facility] Aspartate Amino Transferase 19 5 - 31 U/L [facility] Alanine Aminotransferase 10 0 - 31 U/L [facility] Total Protein 8.1(H) 6.5 - 8.0 g/dL [facility] Albumin Level 4.5 3.5 - 5.0 g/dL [facility] Alkaline Phosphatase 57 39 - 117 U/L [facility] 05/08/2024 10:3 3 PM EST 05/08/2024 10:36 PM EST us Generic External Data Provider LAB BLOOD ORDERAB LES Final Result [facility] [address] [place] [phone] * SARS-CoV-2 RNA, Influenza A/B, and RSV RNA, Ql NAAT (05/08/2024 9:23 PM EST) Influenza A PCR NEGATIVE Negative [facility] Influenza B PCR NEGATIVE Negative [facility] Resp Syncy Virus RNA Qual PCR NEGATIVE Negative [facility] SARS COV2 PCR NEGATIVE Negative [facility] Comment:All test results mus t [...] use by authorized laboratories.Testing performed on the Pocketbook GeneXpert utilizingreal-time RT-PCR.All SARS CoV2 and positive influenza A/B results arereported to [facility]. 05/08/2024 9:23 PM EST 05/08/2024 9:25 PM EST us Generic External Data Provider LAB MICROBIOLOGY - GENERAL ORDERABLES Final Result Performing Organization Address [facility]/State/ZIP Co de Phone Number [facility] [address] [place] [address] [phone] * CT Abdomen Pelvis w/ Contrast (04/30/2024 5:22 AM EST) Anatomical Region Laterality Modality Body, Pelvis, Abdomen Computed T omography 04/30/2024 5:22 AM EST Narrative 04/30/2024 5:24 AM EST ? [facility] ?[address] ?[place] [address] ? CT Scan Report ? Signed with Addenda ? Patient: Mckeon Ramsey,Shruti ?MR#: MM ?? [id number] ? : 1985 ?Acct:[id number] ? Age/Sex: 38 / F ?ADM Date: 04/30/24 ? Loc: HO.ED ? Attending Dr: ? Ordering Physician: Jennifer Santillan MD ?? Date of Service: 04/30/24 ?? Procedure(s): CT abdomen pelvis w IV con ?? Accession Number(s): [id number] ? cc: Jennifer Santillan MD; Lu Estrada MD ? Report Number: ?? [id number]: Total DLP = ??746.00 mGy-cm ?ADDENDUM ?? This document has been electronically signed by: Monie Jenkins MD on ?? 04/30/2024 05:22:49 ? ADDENDUM: ?? Receipt of this report by the clinical staff was confirmed with plater barrel, ?? David ManciaHeath on Apr 30, 2024 05:25:00 EST. ? [...] IV CON - 03/04/24 22:31 EST ?? CT/ID/SR - CT ABDOMEN PELVIS WO IV CON [...] by Monie Jenkins MD in OV> ?04/30/24 0523 ? DD/ 1 ? TD/TT: 04/30/24521 ? Photo Finisher: ? Procedure Note Tanmay Ocasio - 04/30/[address] [place] [address] [address] Scan Report Signed with Anjana Patient: Ajay Winters#: [id number] : 1985Acct:[id number] Age/Sex: 38 / FADM Date: 04/30/24 Loc: HO.ED Attending Dr: Ordering Physician: Jennifer Santillan MD Date of Service: 04/30/24 Procedure(s): CT abdomen pelvis w IV con Accession Number(s): [id number] cc: Jennifer Santillan MD; Lu Estrada MD Report Number: [id number]: Total DLP = 746.00 mGy-cm ADDENDUM This [...] W IV CON - 03/04/24 22:[address]/ID/SR - CT ABDOMEN PELVIS WO IV CON [...] in OV> 04/30/24522 DD/ 1 TD/TT: 04/30/24521 Photo Finisher: [facility] External Provider IMG CT PROCEDURES Edited Result - Final * Urinalysis, Complete, with Reflex to Culture (04/30/2024 1:09 AM EST) Color Urine Yellow [facility] Appearance Urine Clear [facility] PH 5.5 5.0 - 9.0 [facility] Glucose Urine UA Negative Negative mg/dL [facility] Urine Blood Negative Negative [facility] Specific [place] - Urine 1.025 1.005 - 1.025 [facility] Urine Protein Negative Neg-Trace mg/dL [facility] Urine Ketones Negative Negative mg/dL [facility] Nitrite Urine Negative Negative [facility] Leukocyte Esterase Urine Negative Negative [facility] RBC Urine 0-2 0 - 2 /HPF [facility] Urine WBC 0-5 0 - 5 /HPF [facility] Urine Squamous Epithelial Cell 3-5 0 - 2 /HPF [facility] Urine Bacteria Trace None Seen [facility] Hyaline Casts, Urine 0-2 0 - 2 /LPF [facility] 04/30/2024 1:09 AM EST 04/30/2024 1:13 AM EST Narrative [facility] - 04/30/2024 1:21 AM EST [id number], Clean Catch us Generic External Data Provider LAB URINE ORDERAB LES Final Result [facility] [address] [place] [phone] * hCG, Total, Quantitative (04/30/2024 1:09 AM EST) HCG Quantitative <2 mIU/mL [facility] Comment:Weeks post LMP Appro ximate hCG(Last Menstrual Period) Range (mIU/ml)3 - 4 weeks 9 - 1304 - 5 weeks 75 - 2,6005 - 6 weeks 850 - 20,8006 - 7 weeks 4000 - 100,2007 - 12 weeks 11,500 - 289,46657 - 16 weeks 18,300 - 137,70905 - 29 weeks (2nd trimester) 1,400 - 53,73394 - 41 weeks (3rd trimester) 940 - [...] ORDERAB LES Final Result Performing Organization Address [facility] Co de Phone Number [facility] [address] [place] [phone] * (ABNORMAL) Lipase (04/30/2024 1:09 AM EST) Lipase 86(H) 8 - 78 U/L [facility] 04/30/2024 1:09 AM EST 04/30/2024 1:13 AM EST Generic External Data Provider LAB BLOOD ORDERAB LES Final Result Performing Organization Address [facility] Phone Number [facility] [address] [place] [phone] * POCT urinalysis dipstick manually resulted [...] 3:20 PM EDT) Triglycerides 88 <150 mg/dL [facility] Comment:Desirable Triglyceri de: less than 150 mg/dLBorderline High Triglyceride 150-199 mg/dLHigh Triglyceride: 200-499 mg/dLVery High Triglyceride: greater than or equal to 5OO mg/dL Cholesterol 183 <200 mg/dL [facility] Comment:Desirable Cholestero l: less than 200 mg/dLBorderline High Cholesterol: 200-239 mg/dLHigh Cholesterol: greater than 239 mg/dL LDL Cholesterol Calculated 126(H) <100 mg/dL [facility] Comment:Desirable LDL: less than 100 mg/dLNear Optimal/Above Optimal LDL: 110- 129 mg/dLBorderline High LDL: 130-159 mg/dLHigh LDL: 160-189 mg/dLVery High LDL: greater than or equal to 190 mg/dL HDL Cholesterol 40(L) >40 mg/dL [facility] Comment:Desirable HDL: great er than 40 mg/dL Note: This HDL assay may give artificially low results in patients with liver disease. Blood 01/22/2024 3:20 PM EDT 01/22/2024 4:05 PM EDT us Lu Estrada MD LAB BLOOD ORDERABLES Final Resul t [facility] [address] [place] [phone] * ThinPrep Imaging Pap and HPV mRNA E6/E7 with Reflex to HPV 16,18/45 (12/05/2023 12:00 AM EDT) HPV 16 RNA TNP [facility] HPV 18/45 RNA TNP [facility] HPV nRNA E6/E7 Not Detected Not Detected [facility] Comment:Methodology: Transcr iption-Mediated AmplificationThis assay detects E6/E7 viral messenger RNA (mRNA) from 14high-risk HPV types (16,18,31,33,35,39,45,51,52,56,58,59,66,68).Cervical sources are required for HPV testing.If a vaginal source from a patient who has had atotal hysterectomy with removal of cervix wassubmitted, please contact the testing laboratoryfor alternative testing options.For additional information, please refer tohttp://education.[employer]/faq/YJH231w8(This link if provided for information/educational purposes only.)THIS TEST WAS PERFORMED AT:[employer] [address] [phone] MILLS MD SOURCE: SEE NOTE [facility] Comment:None given Report Status: [facility] Clinical Information: SEE NOTE [facility] Comment:None given LMP: SEE NOTE [facility] Comment:NONE GIVEN Prev. PAP: SEE NOTE [facility] Comment:NONE GIVEN Prev. BX: SEE NOTE [facility] Comment:NONE GIVEN Statement Of Adequacy: SEE NOTE [facility] Comment:Satisfactory for tahmina luation.Endocervical/transformation zone componentpresent. General Categorization: [facility] Interpretation/Result: SEE NOTE [facility] Comment:Cytology Results: Ne gative for intraepitheliallesion or malignancy. Cytology Comment SEE NOTE [facility] Comment:This Pap test has be en evaluated with computerassisted technology. Coal Sample Tester: SEE NOTE [facility] Comment:[place], CT(ASCP)CT scre ening location: [address] [address] Review Coal Sample Tester: [facility] Pathologist [facility] PAP Infection [facility] See Note SEE NOTE [facility] Comment:EXPLANATORY NOTE:The Pap is a screening test for cervical cancer. It isnot a diagnostic test and is subject to false negativeand false positive results. It is most reliable when asatisfactory sample, regularly obtained, is submittedwith relevant clinical findings and history, and whenthe Pap result is evaluated along with historic andcurrent clinical information. 12/05/2023 12/05/2023 Narrative [facility] - 12/11/2023 1:12 PM EDT SEE SCANNED RESULTS IN EMR us Generic External Data Provider LAB PATHOLOGY ORD ERABLES Final Result [facility] [address] [place] [phone] * HEPATITIS C AB W/REFL TO HCV RNA, QN, PCR (03/16/2020 4:32 PM EST) HEPATITIS C ANTIBODY NON-REACT OCRA NON-REACT [facility]A [facility] INDEX 0.02 <1.00 [facility] Comment: ?? HCV antibody was non-reactive. There is no laboratory ?? evidence of HCV infection. ?? In most cases, no further action is required. However, if recent HCV exposure is suspected, a test for HCV RNA (test code 31412) is suggested. ?? For additional information please refer to http://[employer]/faq/XYG39i8 (This link is being provided for informational/ educational purposes only.) ?? 03/16/2020 4:32 PM EST us Lu Estrada MD HISTORICAL/NON ORDERABLE LABS Fi nal Result Performing Organization Address City/[facility]/ZIP Co de Phone Number [facility] [address] * HIV 1/2 ANTIGEN/ANTIBODY,FOURTH GENERATION W/RFL (03/16/2020 4:32 PM EST) HIV-1/2 ANTIGEN AND ANTIBODIES, 4TH GENERATION W/ REFLEX NON-REACT CORA NON-REACT CORA [facility] Comment: HIV-1 antigen and HIV-1/HIV-2 [...] ? For additional information please refer to http://[employer]/faq/USA473 (This link is being provided for informational/ educational purposes only.) ? The performance of this assay has not been clinically validated in patients less than 2 years old. ?? 03/16/2020 4:32 PM EST us Lu Estrada MD LAB BLOOD ORDERABLES Final Resul t [facility] [address] from Last 3 Months or Most Recently Relevant to Health Maintenance Insurance C3 D[facility] MEDICAID STAND ADULT Care Teams Stamper Blocker Relationship Specialty Start Date End Date Lu Estrada MD [address] [place] [address] PCP - General Family Medicine 03/27/18
--- OUTSIDE RECORDS SUMMARY | 2024-07-19 14:11 | XMS_ITS | Encounter Summary ---
Author Organization [employer] Address [address] [facility] 7t [place] [address] Care Team Providers Care Braided Rug Maker Name Role Phone Lu Estrada MD Primary Care Provider [phone] Reason for Visit * Reason Comments Med Refill Encounter Details Date Type Department Care Team ([facility] Contact Info) Description 04/22/2022 Refill [facility] MED & PEDS [address] [place] [address] Vandana Black, ANP [address] [place] [address] Social History Tobacco Use Types Packs/Day Years [...] Upcoming Encounters Date Type Department Care Team ([facility] Contact Info) Description 09/11/2024 10:00 AM EDT Office Visit [facility] ADULT DENTAL [address] [place] [address] Mc Ennisaris [address] [place] [address] documented as of this encounter Visit Diagnoses Not on filedocumented in this encounter Care Teams Braided Rug Maker Relationship Specialty Start Date End Date Lu Estrada MD [address] [place] [address] PCP - General Family Medicine 03/27/18 documented as of this encounter
--- OUTSIDE RECORDS SUMMARY | 2024-07-19 14:11 | XMS_ITS | Encounter Summary ---
Author Organization [employer] Address [address] [place] [address] 7t [place] [address] Care Team Providers Care Principal Scientist Name Role Phone Lu Estrada MD Primary Care Provider [phone] Reason for Visit * Reason Comments Med Refill Encounter Details Date Type Department Care Team (Late st Contact Info) Description 06/08/2022 Refill [facility] MEDICINE [address] [place] [address] Danny Lundy MD 230 [place] [address] Social History Tobacco Use Types Packs/Day Years [...] Description 09/11/2024 10:00 AM EDT Office Visit [facility] ADULT DENTAL [address] [place] [address] Heidi Ennis [address] [place] [address] documented as of this encounter Visit Diagnoses Not on filedocumented in this encounter Care Teams Principal Scientist Relationship Specialty Start Date End Date Lu Estrada MD [address] [place] [address] PCP - General Family Medicine 03/27/18 documented as of this encounter
--- OUTSIDE RECORDS SUMMARY | 2024-07-19 14:11 | XMS_ITS | Encounter Summary ---
Author Organization [employer] Address [address] [facility] [address] 7t [place] [address] Care Team Providers Care Wool Grader Name Role Phone Lu Estrada MD Primary Care Provider [phone] Encounter Details Date Type Department Care Team ([facility] st Contact Info) Description 04/30/2024 Orders Only [facility] MEDICINE [address] [place] [address] Lu Estrada MD 230 [place], [place] [phone] Abnormal CT of the abdomen (Primary Dx); [...] the past 12 months, has t he [email or web address], gas, oil or water [employer] threatened to shut off services in your [...] Description 09/11/2024 10:00 AM EDT Office Visit [facility] ADULT DENTAL [address] [place] [address] Raymon, Heidi [address] [place] [address] documented as of this encounter Procedures Procedure Name Priority Date/Time Associated Diagnosis Comments BI MAMMOGRAM DIAGNOSTIC TOMOSYNTHESIS BILATERAL Routine 06/07/2024 10:00 AM EDT documented in this encounter Results * BI Mammogram Diagnostic Tomosynthesis Bilateral (06/07/2024 10:00 AM EDT) Anatomical Region Laterality Modality Breast Bilateral Mammography 06/07/2024 10:0 0 AM EDT Narrative 06/07/2024 11:42 AM EDT ? [facility] ? [address] ?[place] [address] ? Mammography Report ? Signed ? Patient: Mckeon Ramsey,Shruti ?MR#: [id number] ?? [id number] ? : 1985 ?Acct:[id number] ? Age/Sex: 39 / F ?ADM Date: 06/07/24 ? Loc: HO.MAMMO ? Attending Dr: Lu Estrada MD ? Ordering Physician: Lu Estrada MD ?Results: 1Negative ? Date of Service: 06/07/24 ?Follow Up: Mammo at 40 or e ?? arlier if clinically needed ? Procedure(s): MM tomosynthesis diagnostic BI ?? Accession Number(s): [id number] ? cc: Lu Estrada MD ? EXAMINATION: [...] DD/ 1000 ? TD/TT: 06/07/24 1018 ? Combiner Operator: ? Procedure Note Donkanwalinterpreter, Image - 06/07/2024 [facility] [address] [place] [address] Mammography Report Signed Patient: Ajay Winters#: [id number] : 1985Acct:[id number] Age/Sex: 39 / FADM Date: 06/07/24 Loc: LISA Attending Dr: Lu Estrada MD Ordering Physician: Lu Estrada MDResults: 1Negative Date of Service: 06/07/24Follow Up: Mammo at 40 or e arlier if clinically needed Procedure(s): MM tomosynthesis diagnostic BI Accession Number(s): [id number] cc: Lu Estrada MD EXAMINATION: MM DIAGNOSTIC [...] 06/07/24 1139 DD/ 1000 TD/TT: 06/07/24 1018 Combiner Operator: Lu Estrada MD IMG BI PROCEDURES [...] documented as of this encounter Care Teams Wool Grader Relationship Specialty Start Date End Date Lu Estrada MD [address] [place] [address] PCP - General Family Medicine 03/27/18 documented as of this encounter
--- OUTSIDE RECORDS SUMMARY | 2024-07-19 14:11 | XMS_ITS | Encounter Summary ---
Author Organization [employer] Address [address] [facility] 7t [place] [address] Care Team Providers Care Esol Teacher Name Role Phone Lu Estrada MD Primary Care Provider [phone] Reason for Visit * Reason Onset Date Comments Letter for School/Work 04/27/2023 Encounter Details Date Type Department Care Team ([facility] Contact Info) Description 04/27/2023 Telephone [facility] MEDICINE 230 [place] [address] Lu Estrada MD [address] [place], [place] [phone] Letter for School/Work Social History Tobacco Use [...] 09/11/2024 10:00 AM EDT Office Visit [facility] ADULT DENTAL 230 [place] [address] Raymon, Heidi 230 [place] [address] documented as of this encounter Visit Diagnoses Not on filedocumented in this encounter Additional Health Concerns Assessment Noted Time PHQ-9 Depression Total Score: 0 03/08/20 23 11:18 AM EST documented as of this encounter Care Teams Esol Teacher Relationship Specialty Start Date End Date Lu Estrada MD [address] [place] [address] PCP - General Family Medicine 03/27/18 documented as of this encounter
--- OUTSIDE RECORDS SUMMARY | 2024-07-19 14:11 | XMS_ITS | Encounter Summary ---
Author Organization [employer] Address [address] [facility] [address]t [place] [address] Care Team Providers Care University Controller Name Role Phone Lu Estrada MD Primary Care Provider Reason for Visit * Reason Comments Med Refill Encounter Details Date Type Department Care Team ([facility] st Contact Info) Description 03/09/2023 Refill [facility] MED & PEDS [address] [place], [place] [phone] Vandana Black, ANP 230 [place] [address] Social History Tobacco Use Types Packs/Day Years [...] Description 09/11/2024 10:00 AM EDT Office Visit [facility] ADULT DENTAL 230 [place] [address] Raymon, Heidi 230 [place] [address] documented as of this encounter Visit Diagnoses Not on filedocumented in this encounter Additional Health Concerns Assessment Noted Time PHQ-9 Depression Total Score: 0 03/08/20 23 11:18 AM EST documented as of this encounter Care Teams University Controller Relationship Specialty Start Date End Date Lu Estrada MD [address] [place] [address] PCP - General Family Medicine 03/27/18 documented as of this encounter
== END 2024-07-19 14:30 | disposition home or self-care (01) ==
LOC: HO.HWS 13:30
PROVIDERS: Visit Provider Advanced Practice Midwife
DX: N89.8 Other specified noninflammatory disorders of vagina (principal); Z11.3 Encounter for screening for infections with a predominantly sexual mode of transmission; Z98.51 Tubal ligation status; Z90.79 Acquired absence of other genital organ(s); Z98.890 Other specified postprocedural states; Z87.42 Personal history of other diseases of the female genital tract
CPT/HCPCS: 99213

== ENCOUNTER 2024-08-21 09:49 | Outpatient (AMB) | payer MEDICAID, SELFPAY ==
--- NOTE | 2024-08-21 10:12 | A.OFFVIS_ITS ---
Intake Visit Reasons: Preop RT DWG 08/29/24 AR Intake Note: Shruti is a 39 year old right hand dominant female who presents today for a pre operative appointment - she is booked for a Right Dorsal Wrist Ganglion Cyst Excision on 08/29/24 - no questions or concerns. Allergies No Known Allergies [No Known Allergies*] Allergy (Verified 07/19/24 13:45) HPI HPI Preop RT DWG 08/29/24 AR: Details: Shruti is a 39 year old right hand dominant female who presents today for a pre operative appointment - she is booked for a Right Dorsal Wrist Ganglion Cyst Excision on 08/29/24 - no questions or concerns. PFSH Medical History (Updated 07/19/24 @ 14:16 by Drea Burden CNM) Simple ovarian cyst Hypertension IBS (irritable bowel syndrome) Fibromyalgia Asthma Migraines Surgical History (Updated 07/19/24 @ 14:22 by Drea Burden CNM) Hx of colonoscopy History of esophagogastroduodenoscopy (EGD) History of loop electrical excision procedure (LEEP) Hx of tubal ligation Family History Mother Diabetes HTN (hypertension) Asthma Brother Asthma Social History Household Members: Children Are you a primary care center manager to a significant other at home: No (children 15,10,8 Mother will assist with care) Do you presently have visiting nurse or other home services: No Alcohol intake: never Patient Tobacco Use Status: Never used Tobacco Substance Use Type: Marijuana Current occupational status: employed 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 The cyst has been persistent and is approximately 2 to 3 cm in diameter. It sometimes causes pain and feels filled with fluid. The patient reports that this is a recurrent issue, but there is no record of prior surgical intervention. She denies any new systemic diagnoses. The patient maintains full range of motion and normal sensation in her digits. She occasionally lifts boxes at work. Review of Systems- Musculoskeletal: Reports occasional pain and numbness in the hand. - Neurological: Denies any new neurological symptoms. - General: Denies new diagnoses such as heart conditions, kidney conditions, or diabetes. Systems reviewed and are negative except as per HPI and below Physical Exam- Musculoskeletal- Full and intact range of motion of the wrist; ganglion cyst approximately 2 to 3 cm in diameter on volar wrist is visible and palpable; no redness or evidence of infection. - Neurological- Normal sensation to the tips of all digits. Results Procedure Plan1. Postoperative care includes maintaining a clean and dry dressing for five days, with a weight limit of 2 pounds for four weeks. The patient will follow up two weeks post-surgery for suture removal and to assess healing.: 1. Postoperative care includes maintaining a clean and dry dressing for five days, with a weight limit of 2 pounds for four weeks. The patient will follow up two weeks post-surgery for suture removal and to assess healing.: I educated the patient about the condition. I discussed both operative and nonoperative treatment options. The patient would like to proceed with surgery. The risks and benefits of operative treatment were discussed with the patient and the patient wishes to proceed with surgery. These risks include, but are not limited to, risk of damage to blood vessels, nerves, tendons, infection, recurrence, incomplete relief of preoperative symptoms, persistent pain, possible need for further surgery, and the risks associated with regional blocks and/or anesthesia. Plan is to take the patient to the operating room at some point in the next few weeks for the following procedures: 1. Right dorsal wrist ganglion excision under general All of the preoperative paperwork including the consent was discussed today. All of the patient's questions were answered in the clinic today. The patient understands that they will be in contact with our surgical pathologist to discuss scheduling their procedure. Patient denies diabetes, blood thinners, asthma, heart issues, lung issues, kidney issues, or current smoking. Patient was informed and verbally consented to the use of an ambient scribe for clinic note documentation during this visit. Discussion NotesI discussed with the patient the plan for surgical excision of the recurrent volar wrist ganglion cyst. We reviewed the postoperative care instructions, including keeping the dressing clean and dry and adhering to a weight limit of 2 pounds for four weeks. I advised the patient to discuss work accommodations to adhere to these restrictions. We reviewed the follow-up plan, with an appointment scheduled two weeks post-surgery for suture removal and assessment of healing. I confirmed the patient understood the risks and benefits of the procedure and postoperative care instructions. Coding Level of Care Code Est Pt Level 4 (30328) Diagnoses Ganglion cyst of dorsum of right wrist M67.431
--- OUTSIDE RECORDS SUMMARY | 2024-08-21 10:34 | XMS_ITS | Encounter Summary ---
Author Organization [employer] Address [address] [place] [address] 7t [place] [address] Care Team Providers Care Learning Technologies Specialist Name Role Phone Lu Estrada MD Primary Care Provider [phone] Reason for Visit * Reason Onset Date Comments Appointment Request 12/23/2022 Derm Encounter Details Date Type Department Care Team ([facility] Contact Info) Description 12/23/2022 Telephone [facility] MEDICINE [address] [place] [address] Lu Estrada MD [address] [place] [address] Appointment Request (Derm ) Social History Tobacco [...] [facility] [address] [place], [place] [phone] Raymon, Heidi [address] [place] [address] documented as of this encounter Visit Diagnoses Not on filedocumented in this encounter Care Teams Learning Technologies Specialist Relationship Specialty Start Date End Date Lu Estrada MD [address] [place], [place] [phone] PCP - General Family Medicine 03/27/18 documented as of this encounter
== END 2024-08-21 10:23 | disposition home or self-care (01) ==
LOC: HO.HOS 09:49
PROVIDERS: PCP Family Medicine
DX: M67.431 Ganglion, right wrist (principal)
CPT/HCPCS: 99024

== ENCOUNTER → 2024-08-21 09:49 | Outpatient (BNVA) | payer MEDICAID, SELFPAY | PROVIDERS: PCP Family Medicine | DX: M67.431 Ganglion, right wrist (principal) | CPT/HCPCS: 99212 ==

== ENCOUNTER 2024-08-29 06:03 | Day surgery (SDC) | payer MEDICAID, SELFPAY ==
--- OUTSIDE RECORDS SUMMARY | 2024-07-25 07:42 | XMS_ITS | Encounter Summary ---
Author Organization [employer] Address [address] [place] [address] 7t [place] [address] Care Team Providers Care Date Puller Name Role Phone Lu Estrada MD Primary Care Provider [phone] Encounter Details Date Type Department Care Team (Latest Contact Info) Description 07/08/2020 Abstract [facility] CONVERSIONS Dental, Provider, DDS Social History [...] [facility] AD[facility] [address] [place] [address] Raymon, Heidi [address] [place] [address] documented as of this encounter Visit Diagnoses Not on filedocumented in this encounter Care Teams Date Puller Relationship Specialty Start Date End Date Lu Estrada MD 230 [place] [address] PCP - General Family Medicine 03/27/18 documented as of this encounter
--- OUTSIDE RECORDS SUMMARY | 2024-07-25 07:42 | XMS_ITS | Encounter Summary ---
Author Organization [employer] Address [address] [facility] 7t [place] [address] Care Team Providers Care Bench Assembler Battery Name Role Phone Lu Estrada MD Primary Care Provider [phone] Reason for Visit * Reason Comments Med Refill Encounter Details Date Type Department Care Team ([facility] st Contact Info) Description 03/09/2023 Refill [facility] MEDICINE [address] [place] [address] Lu Estrada MD 230 [place], [place] [phone] Social History Tobacco Use Types Packs/Day Years [...] 10:00 AM EDT Office Visit [facility] ADULT DENTAL [address] [place] [address] Raymon, Heidi 230 [place] [address] documented as of this encounter Visit Diagnoses Not on filedocumented in this encounter Additional Health Concerns Assessment Noted Time PHQ-9 Depression Total Score: 0 03/08/20 23 11:18 AM EST documented as of this encounter Care Teams Bench Assembler Battery Relationship Specialty Start Date End Date Lu Estrada MD 230 [place] [address] PCP - General Family Medicine 03/27/18 documented as of this encounter
--- OUTSIDE RECORDS SUMMARY | 2024-07-25 07:42 | XMS_ITS | Encounter Summary ---
Author Organization [employer] Address [address] [facility] 7t [place] [address] Care Team Providers Care Rat Exterminator Name Role Phone Lu Estrada MD Primary Care Provider [phone] Reason for Visit * Reason Onset Date Comments Letter for School/Work 04/27/2023 Encounter Details Date Type Department Care Team ([facility] Contact Info) Description 04/27/2023 Telephone [facility] MEDICINE 230 [place] [address] Lu Estrada MD 230 [place], [place] [phone] Letter for School/Work Social History Tobacco Use [...] Description 09/11/2024 10:00 AM EDT Office Visit [facility] ADULT DENTAL [address] [place] [address] Raymon, Heidi [address] [place] [address] documented as of this encounter Visit Diagnoses Not on filedocumented in this encounter Additional Health Concerns Assessment Noted Time PHQ-9 Depression Total Score: 0 03/08/20 23 11:18 AM EST documented as of this encounter Care Teams Rat Exterminator Relationship Specialty Start Date End Date Lu Estrada MD 230 [place] [address] PCP - General Family Medicine 03/27/18 documented as of this encounter
--- OUTSIDE RECORDS SUMMARY | 2024-07-25 07:42 | XMS_ITS | Encounter Summary ---
Author Organization [employer] Address [address] [place] [address] 7t [place] [address] Care Team Providers Care Medical Information Officer Name Role Phone Lu Estrada MD Primary Care Provider [phone] Reason for Referral * Consultation (Routine) - Authorized Specialty Diagnoses / Procedures Referred By [facility] Carejoanna mead Referred To Contact Orthopaedic Surgery Diagnoses Ganglion cyst of wrist, right Lu Estrada MD 230 [place] [address] Phone: tel: fax: [facility] Referral ID Status Reason Start Date Expiration Date Visits Requested Visits Authorized [id number] Authorized Specialty Services Required 06/25/2024 06/25/2025 12 12 Encounter Details Date Type Department Care Team (Late st Contact Info) Description 06/24/2024 Orders Only [facility] MEDICINE [address] [place] [address] Lu Estrada MD 230 [place], [place] [phone] Ganglion cyst of wrist, right (Primary Dx) [...] [facility] ADULT DENTAL 230 [place] [address] Ramyon, Heidi 230 [place] [address] Scheduled Referrals Name Type Priority Associated Diagnoses [...] as of this encounter Care Teams Medical Information Officer Relationship Specialty Start Date End Date Lu Estrada MD [address] [place] [address] PCP - General Family Medicine 03/27/18 documented as of this encounter
--- OUTSIDE RECORDS SUMMARY | 2024-07-25 07:42 | XMS_ITS | Encounter Summary ---
Author Organization [employer] Address [address] [place] [address] 7t [place] [address] Care Team Providers Care Cardiovascular Or Nurse Name Role Phone Lu Estrada MD Primary Care Provider [phone] Encounter Details Date Type Department Care Team (Late st Contact Info) Description 04/04/2022 Abstract [facility] ADULT DENTAL [address] [place] [address] Viet Kellogg DDS [address] [place] [address] Social History Tobacco Use Types Packs/Day Years [...] Description 09/11/2024 10:00 AM EDT Office Visit [facility] ADULT DENTAL [address] [place] [address] Heidi Ennis [address] [place] [address] documented as of this encounter Visit Diagnoses Not on filedocumented in this encounter Care Teams Cardiovascular Or Nurse Relationship Specialty Start Date End Date Lu Estrada MD 230 [place] [address] PCP - General Family Medicine 03/27/18 documented as of this encounter
--- OUTSIDE RECORDS SUMMARY | 2024-07-25 07:42 | XMS_ITS | Encounter Summary ---
Demographics Address [address] [facility] [address] [place] [address] Home Phone Work Phone Mobile Phone Email Address Preferred Language en Marital Status Single Mormon Affiliation Unknown Race Other Race Ethnic Group or Author Organization [employer] Address [address] [facility] 7t [place] [address] Care Team Providers Care Patent Chemist Name Role Phone Lu Estrada MD Primary Care Provider [phone] Encounter Details Date Type Department Care Team ([facility] Contact Info) Description 03/28/2024 Orders Only [facility] CHC MED & PEDS [address] [place] [address] Elliot Antunez MD 505 [place] [address] Social History Tobacco Use Types Packs/Day Years [...] Description 09/11/2024 10:00 AM EDT Office Visit [facility] ADULT DENTAL 230 [place] [address] Raymon, Heidi [address] [place] [address] documented as of this encounter Visit Diagnoses Not on filedocumented in this encounter Additional Health Concerns Assessment Noted Time PHQ-9 Depression Total Score: 5 01/22/20 24 3:06 PM EDT documented as of this encounter Care Teams Patent Chemist Relationship Specialty Start Date End Date Lu Estrada MD 230 [place] [address] PCP - General Family Medicine 03/27/18 documented as of this encounter
--- OUTSIDE RECORDS SUMMARY | 2024-07-25 07:42 | XMS_ITS | Encounter Summary ---
Author Organization [employer] Address [address] [facility] 7t [place] [address] Care Team Providers Care Skin Care Specialist Name Role Phone Lu Estrada MD Primary Care Provider [phone] Encounter Details Date Type Department Care Team ([facility] Contact Info) Description 03/18/2022 Abstract [facility] ADULT DENTAL [address] [place] [address] Viet Kellogg DDS [address] [place] [address] Social History Tobacco Use Types Packs/Day Years [...] Upcoming Encounters Date Type Department Care Team ([facility] Contact Info) Description 09/11/2024 10:00 AM EDT Office Visit [facility] ADULT DENTAL [address] [place] [address] Heidi Ennis [address] [place] [address] documented as of this encounter Visit Diagnoses Not on filedocumented in this encounter Care Teams Skin Care Specialist Relationship Specialty Start Date End Date Lu Estrada MD 230 [place] [address] PCP - General Family Medicine 03/27/18 documented as of this encounter
--- OUTSIDE RECORDS SUMMARY | 2024-07-25 07:42 | XMS_ITS | Encounter Summary ---
Author Organization [employer] Address [address] [facility] 7t [place] [address] Care Team Providers Care Catalyst Operator Name Role Phone Lu Estrada MD Primary Care Provider [phone] Encounter Details Date Type Department Care Team (Late Contact Info) Description 10/17/2022 Abstract [facility] ADULT DENTAL [address] [place], [place] [phone] Heidi Ennis [address] [place] [address] Social History Tobacco Use Types Packs/Day Years [...] Description 09/11/2024 10:00 AM EDT Office Visit [facility] ADULT DENTAL [address] [place], [place] [phone] Heidi Ennis [address] [place] [address] documented as of this encounter Visit Diagnoses Not on filedocumented in this encounter Care Teams Catalyst Operator Relationship Specialty Start Date End Date Lu Estrada MD [address] [place] [address] PCP - General Family Medicine 03/27/18 documented as of this encounter
--- OUTSIDE RECORDS SUMMARY | 2024-07-25 07:42 | XMS_ITS | Encounter Summary ---
Author Organization [employer] Address [address] [place] [address] 7t [place] [address] Care Team Providers Care Geriatric Nurse Name Role Phone Lu Estrada MD Primary Care Provider [phone] Reason for Visit * Reason Comments Med Refill Encounter Details Date Type Department Care Team (Late st Contact Info) Description 04/19/2022 Refill [facility] MEDICINE [address] [place] [address] Leatha Chong MD 230 [place], [place] [phone] Primary hypertension (Primary Dx) Social History Tobacco [...] [facility] ADULT DENTAL [address] [place] [address] Heidi Ennis [address] [place] [address] documented as of this encounter Visit Diagnoses Diagnosis Primary hypertension- Primary Unspecified essential hypertension documented in this encounter Care Teams Geriatric Nurse Relationship Specialty Start Date End Date Lu Estrada MD [address] [place] [address] PCP - General Family Medicine 03/27/18 documented as of this encounter
--- OUTSIDE RECORDS SUMMARY | 2024-07-25 07:42 | XMS_ITS | Encounter Summary ---
Author Organization [employer] Address [address] [facility] 7t [place] [address] Care Team Providers Care Food Safety Scientist Name Role Phone Lu Estrada MD Primary Care Provider [phone] Encounter Details Date Type Department Care Team (Late Contact Info) Description 10/17/2022 Abstract [facility] ADULT DENTAL 230 [place], [place] [phone] Heidi Ennis [address] [place] [address] Social History Tobacco Use Types Packs/Day Years [...] Description 09/11/2024 10:00 AM EDT Office Visit [facility] ADULT DENTAL 230 [place], [place] [phone] Heidi Ennis [address] [place] [address] documented as of this encounter Visit Diagnoses Not on filedocumented in this encounter Care Teams Food Safety Scientist Relationship Specialty Start Date End Date Lu Estrada MD 230 [place] [address] PCP - General Family Medicine 03/27/18 documented as of this encounter
--- OUTSIDE RECORDS SUMMARY | 2024-07-25 07:42 | XMS_ITS | Encounter Summary ---
Author Organization [employer] Address [address] [place] [address] 7t [place] [address] Care Team Providers Care Tomography Technologist Name Role Phone Lu Estrada MD Primary Care Provider [phone] Encounter Details Date Type Department Care Team (Latest Contact Info) Description 01/01/2019 Abstract [facility] CONVERSIONS Dental, Provider, DDS Social History [...] [facility] ADULT DENTAL [address] [place] [address] Raymon, Heidi [address] [place] [address] documented as of this encounter Visit Diagnoses Not on filedocumented in this encounter Care Teams Tomography Technologist Relationship Specialty Start Date End Date Lu Estrada MD [address] [place] [address] PCP - General Family Medicine 03/27/18 documented as of this encounter
--- OUTSIDE RECORDS SUMMARY | 2024-07-25 07:42 | XMS_ITS | Encounter Summary ---
Author Organization [employer] Address [address] [place] [address] 7 [place] [address] Care Team Providers Care Heat Treatment Technician Name Role Phone Lu Estrada MD Primary Care Provider [phone] Encounter Details Date Type Department Care Team (Late st Contact Info) Description 02/23/2022 Abstract [facility] ADULT DENTAL [address] [place] [address] Dental, Provider, DDS Social History Tobacco Use [...] [facility] ADULT DENTAL [address] [place] [address] RaymonMcHeidi [address] [place] [address] documented as of this encounter Procedures Procedure Name Priority Date/Time Associated Diagnosis Comments 14 O AMALGAM FILLING Routine 02/23/2022 12:00 AM EST documented in this encounter Visit Diagnoses Not on filedocumented in this encounter Care Teams Heat Treatment Technician Relationship Specialty Start Date End Date Lu Estrada MD [address] [place] [address] PCP - General Family Medicine 03/27/18 documented as of this encounter
--- OUTSIDE RECORDS SUMMARY | 2024-07-25 07:42 | XMS_ITS | Encounter Summary ---
Author Organization [employer] Address [address] [facility] 7t [place] [address] Care Team Providers Care Senior Cytotechnologist Name Role Phone Lu Estrada MD Primary Care Provider [phone] Reason for Visit * Reason Onset Date Comments Referral 06/24/2024 Encounter Details Date Type Department Care Team ([facility] st Contact Info) Description 06/24/2024 Telephone [facility] MEDICINE [address] [place] [address] Lu Estrada MD [address] [place] [address] Referral Social History Tobacco Use Types Packs/Day [...] appt. She is asking for referral to [facility] to get it removed. Advised her of [facility] extended hours tomorrow, pt verbalized understanding. * Telephone Encounter - Heidi Hannah - 06/24/2024 4:03 PM EDT Tc from pt requesting referral for orthopedic. Pt stated PCP is aware of cyst on hand If any questions or concerns contact pt at [phone] documented in this encounter Plan of Treatment Upcoming Encounters Date Type Department Care Team (Late st Contact Info) Description 09/11/2024 10:00 AM EDT Office Visit [facility] ADULT DENTAL [address] [place] [address] Heidi Ennis [address] [place] [address] documented as of this encounter Visit Diagnoses Not on filedocumented in this encounter Additional Health Concerns Assessment Noted Time PHQ-9 Depression Total Score: 5 01/22/20 24 3:06 PM EDT documented as of this encounter Care Teams Senior Cytotechnologist Relationship Specialty Start Date End Date Lu Estrada MD [address] [place] [address] PCP - General Family Medicine 03/27/18 documented as of this encounter
--- OUTSIDE RECORDS SUMMARY | 2024-07-25 07:42 | XMS_ITS | Encounter Summary ---
Author Organization [employer] Address [address] [place] [address] 7t [place] [address] Care Team Providers Care Batter Depositor Name Role Phone Lu Estrada MD Primary Care Provider Encounter Details Date Type Department Care Team (Late st Contact Info) Description 04/19/2022 Orders Only [facility] MEDICINE [address] [place] [address] Lu Estrada MD [address] [place] [address] Social History Tobacco Use Types Packs/Day Years [...] Description 09/11/2024 10:00 AM EDT Office Visit [facility] ADULT DENTAL [address] [place] [address] Heidi Ennis [address] [place] [address] documented as of this encounter Visit Diagnoses Not on filedocumented in this encounter Care Teams Batter Depositor Relationship Specialty Start Date End Date Lu Estrada MD [address] [place] [address] PCP - General Family Medicine 03/27/18 documented as of this encounter
--- OUTSIDE RECORDS SUMMARY | 2024-07-25 07:42 | XMS_ITS | Encounter Summary ---
Author Organization [employer] Address [address] [place] [address] 7t [place] [address] Care Team Providers Care Visual Education Director Name Role Phone Lu Estrada MD Primary Care Provider [phone] Reason for Visit * Reason Onset Date Comments Appointment Request 12/23/2022 Derm Encounter Details Date Type Department Care Team ([facility] st Contact Info) Description 12/23/2022 Telephone [facility] MEDICINE [address] [place] [address] Lu Estrada MD [address] [place] [address] Appointment Request (Derm ) Social History Tobacco [...] Description 09/11/2024 10:00 AM EDT Office Visit [facility] ADULT DENTAL [address] [place], [place] [phone] Raymon, Heidi [address] [place] [address] documented as of this encounter Visit Diagnoses Not on filedocumented in this encounter Care Teams Visual Education Director Relationship Specialty Start Date End Date Lu Estrada MD [address] [place], [place] [phone] PCP - General Family Medicine 03/27/18 documented as of this encounter
--- OUTSIDE RECORDS SUMMARY | 2024-07-25 07:42 | XMS_ITS | Encounter Summary ---
Author Organization [employer] Address [address] 7[address] [place] [address] Care Team Providers Care Buffing Wheel Former Machine Name Role Phone Lu Estrada MD Primary Care Provider [phone] Reason for Visit * Reason Comments Med Refill Encounter Details Date Type Department Care Team (Late st Contact Info) Description 06/18/2022 Refill [facility] MED & PEDS [address] [place] [address] Vandana Black, ANP [address] [place] [address] Social History Tobacco Use Types Packs/Day Years [...] Description 09/11/2024 10:00 AM EDT Office Visit [facility] ADULT DENTAL [address] [place] [address] Raymon, Heidi [address] [place] [address] documented as of this encounter Visit Diagnoses Not on filedocumented in this encounter Care Teams Buffing Wheel Former Machine Relationship Specialty Start Date End Date Lu Estrada MD [address] [place] [address] PCP - General Family Medicine 03/27/18 documented as of this encounter
--- OUTSIDE RECORDS SUMMARY | 2024-07-25 07:42 | XMS_ITS | Encounter Summary ---
Author Organization [employer] Address [address] [facility] 7t [place] [address] Care Team Providers Care Floor Manager Name Role Phone Lu Estrada MD Primary Care Provider [phone] Reason for Visit * Reason Onset Date Comments Appointment 07/05/2022 Encounter Details Date Type Department Care Team ([facility] st Contact Info) Description 07/05/2022 Telephone [facility] ADULT DENTAL [address] [place] [address] Raymon, Heidi [address] [place] [address] Appointment Social History Tobacco Use Types Packs/Day [...] 10:00 AM EDT Office Visit [facility] ADULT DENTAL [address] [place], [place] [phone] Raymon, Heidi [address] [place], [place] [phone] documented as of this encounter Visit Diagnoses Not on filedocumented in this encounter Care Teams Floor Manager Relationship Specialty Start Date End Date Lu Estrada MD [address] [place], [place] [phone] PCP - General Family Medicine 03/27/18 documented as of this encounter
--- OUTSIDE RECORDS SUMMARY | 2024-07-25 07:42 | XMS_ITS | Encounter Summary ---
Author Organization [employer] Address [address] [facility] [address] [place] [address] Care Team Providers Care Aviation Electronic Warfare Operator Name Role Phone Lu Estrada MD Primary Care Provider [phone] Encounter Details Date Type Department Care Team ([facility] st Contact Info) Description 04/30/2024 Orders Only [facility] MEDICINE [address] [place] [address] Lu Estrada MD [address] [place], [place] [phone] Abnormal CT of the abdomen (Primary Dx); [...] the past 12 months, has t he [employer], gas, oil or water [employer] threatened to shut off services in your [...] [facility] ADULT DENTAL [address] [place] [address] Raymon, Heidi [address] [place] [address] documented as of this encounter Procedures Procedure Name Priority Date/Time Associated Diagnosis Comments BI MAMMOGRAM DIAGNOSTIC TOMOSYNTHESIS BILATERAL Routine 06/07/2024 10:00 AM EDT documented in this encounter Results * BI Mammogram Diagnostic Tomosynthesis Bilateral (06/07/2024 10:00 AM EDT) Anatomical Region Laterality Modality Breast Bilateral Mammography 06/07/2024 10:0 0 AM EDT Narrative 06/07/2024 11:42 AM EDT ? [facility] ? [address] ?[place] [address] ? Mammography Report ? Signed ? Patient: Mckeon Ramsey,Shruti ?MR#: [id number] ?? [id number] ? : 1985 ?Acct:[id number] ? Age/Sex: 39 / F ?ADM Date: 06/07/24 ? Loc: HO.MAMMO ? Attending Dr: Lu Estrada MD ? Ordering Physician: Lu Estrada MD ?Results: 1Negative ? Date of Service: 06/07/24 ?Follow Up: Mammo at 42 or e ?? arlier if clinically needed ? Procedure(s): MM tomosynthesis diagnostic BI ?? Accession Number(s): [id number] ? cc: Lu Estrada MD ? EXAMINATION: [...] DD/ 1000 ? TD/TT: 06/07/24 1018 ? Bounty Trapper: ? Procedure Note Donkanwalinterpreter, Image - 06/07/2024 [facility] [address] [place] [address] Mammography Report Signed Patient: Ajay Winters#: [id number] : 1985Acct:[id number] Age/Sex: 39 / FADM Date: 06/07/24 Loc: LISA Attending Dr: Lu Estrada MD Ordering Physician: Lu Estrada MDResults: 1Negative Date of Service: 06/07/24Follow Up: Mammo at 42 or e arlier if clinically needed Procedure(s): MM tomosynthesis diagnostic BI Accession Number(s): [id number] cc: Lu Estrada MD EXAMINATION: MM DIAGNOSTIC [...] 06/07/24 1139 DD/ 1000 TD/TT: 06/07/24 1018 Bounty Trapper: Lu Estrada MD IMG BI PROCEDURES Final [...] documented as of this encounter Care Teams Aviation Electronic Warfare Operator Relationship Specialty Start Date End Date Lu Estrada MD [address] [place] [address] PCP - General Family Medicine 03/27/18 documented as of this encounter
--- OUTSIDE RECORDS SUMMARY | 2024-07-25 07:42 | XMS_ITS | Clinical Summary ---
Author Organization [employer] Address [address] [facility] [address] [place] [address] Care Team Providers Care Content Analyst Name Role Phone Lu Estrada MD Primary Care Provider [phone] Allergies No known active allergies Medications hydrocortisone [...] Feb 2024 was unremarkable - since her [employer] surgery; advised to contact her surgeon or [employer] Atypical chest pain 07/13/2022 Enlarged tonsils 07/13/2022 [...] Plan (04/25/2022 4:36 PM EST): -[place] [facility] continue famotidine -continue pantoprazole -avoid NSAIDS IBS (irritable bowel syndrome) 04/21/2022 Assessment & Plan (01/28/2024 4:45 PM EST): - [place] [facility] last seen in May 2023 - s/p EGD and colonoscopy -GI prescribed dicyclomine, simethicone, and Creon, but she is not taking it; recommended to discuss with GI specialist before discontinuing it -work on stress reduction Assessment & Plan (05/05/2023 6:42 AM EST): - [place] [facility] last seen in [...] (04/29/2022 6:27 PM EST): - [place] [facility] last seen on [...] 4:48 PM EST): - previously seen by [facility] Clinician. - patient is not interested in behavioral health service -Pt was recommended to improve sleepy hygien and exercise during the day instead of taking medications Assessment & Plan (04/25/2022 4:35 PM EST): Was seen by [facility] Clinician. -Will check status of f/u. -Pt was recommended to improve sleepy hygien and exercise during the day instead of taking medications Dislocation of acromioclavicular joint 7 Migraine 05/04/2016 Assessment & Plan (04/28/2024 4:12 PM EST): -[place] [facility] [place] Apr 2019 -seen by [facility] neurology in Dec 2022 -04/23/22 Head [...] Plan (01/28/2024 4:50 PM EST): -seen [place] [facility] [place] Apr 2019 -seen by [facility] neurology in Dec 2022 -04/23/22 Head [...] Plan (05/05/2023 6:51 AM EST): -seen [place] [facility] [place] Apr 2019 -seen by [facility] neurology in Dec 2022 -04/23/22 Head [...] Type Department Care Team Description 07/17/2024 Telephone [facility] [address] [place] [address] Lu Estrada MD 07/12/[address] [address] Lu Estrada MD 06/24/2024 Orders Only [address] [address] Lu Estrada MD Ganglion cyst of wrist, right (Primary Dx) 06/24/2024 Telephone [facility] [address] [place] [address] uL Estrada MD Referral 06/18/2024 9:45 AM EDT Office Visit [facility] OPT[facility] [address] [place] [address] TarkaAziza, OD Dry eyes, bilateral (Primary Dx); Hypermetropia, bilateral 06/18/2024 Patient Outreach [facility] [address] [place] [address] Lu Estrada MD Transition Of Care (Tcm) 06/18/2024 Travel 06/07/2024 Population Health Risk Score Community Care [facility] (C3) Department [address] [phone] Provider, Population Health Generic 06/05/2024 Refill [facility] [address] [place] [address] Lu Estrada MD Moderate persistent asthma without complication 05/21/2024 Telephone [facility] [address] [place] [address] Lu Estrada MD NO SHOW 05/15/[address] [address] Lu Estrada MD Chart Prep 05/09/2024 Patient Outreach [address] [address] Lu Estrada MD Transition Of Care (Tcm) 05/08/2024 Orders Only GENERIC EXTERNAL DATA DEPARTMENT Provider, Generic External Data 05/01/[address] [address] Ericka Pan RN Results; Appointment Request 04/30/2024 Patient Outreach [address] [address] Lu Estrada MD Transition Of Care (Tcm) 04/30/2024 Orders Only [address] [address] Lu Estrada MD Abnormal CT of the abdomen (Primary Dx); Breast density 04/30/2024 Orders Only GENERIC EXTERNAL DATA DEPARTMENT Provider, Generic External Data 04/29/2024 10:15 AM EST Office Visit [address] [address] Lu Estrada MD Primary hypertension (Primary Dx); Moderate persistent asthma without complication; Fibromyalgia; Chronic migraine without aura without status migrainosus, not intractable; Left sided abdominal pain; Chronic pain of left knee 04/29/2024 Travel from Last 3 Months Immunizations Name Administration [...] Description 09/11/2024 10:00 AM EDT Office Visit [facility] AD[facility] DENTAL [address] [place] [address] Raymon, Heidi [address] [place] [address] Health Maintenance Due Date Last Done Comments [...] Laterality Modality Lower Extremities, Knee Left Radiogra phic Imaging 07/12/2024 9:25 AM EDT Narrative 07/12/2024 9:26 AM EDT ? [facility] ?[address] ?[place] [address] ?XRay Report ? Signed ? Patient: Shruti Winters ?MR#: MM ?? [id number] ? : 1985 ?Acct:[id number] ? Age/Sex: 39 / F ?ADM Date: 07/11/24 ? Loc: HO.XRAY ? Attending Dr: Lu Estrada MD ? Ordering Physician: Lu Estrada MD ?? Date of Service: 07/11/24 ?? Procedure(s): XR knee LT 2V ?? Accession Number(s): [id number] ? cc: Lu Estrada MD ? CLINICAL [...] ? DD/ 4 ? TD/TT: 07/12/[address] ? Manager Of Purchasing: ? Procedure Note Amarjit, Image - 07/12/2024 [place] [address] XRay Report Signed Patient: Ajay Winters#: MM [id number] : 1985Acct:[id number] Age/Sex: 39 / FADM Date: 07/11/24 Loc: HO.ДМИТРИЙ Attending Dr: Lu Estrada MD Ordering Physician: Lu Estrada MD Date of Service: 07/11/24 Procedure(s): XR knee LT 2V Accession Number(s): [id number] cc: Lu Estrada MD CLINICAL HISTORY: left [...] in OV> 07/12/24925 DD/ 4 TD/TT: 07/12/24924 Manager Of Purchasing: us Lu Estrada MD IMG XR PROCEDURES Edited Result - Final * BI US Breast Limited Right (06/07/2024 10:44 AM EDT) Anatomical Region Laterality Modality Breast Right Ultrasound 06/07/2024 10:4 4 AM EDT Narrative 06/07/2024 11:42 AM EDT ? [facility] ? [address] ?[place] [address] ? Ultrasound Report ? Signed ? Patient: Mckeon Ramsey,Shruti ?MR#: MM ?? [id number] ? : 1985 ?Acct:[id number] ? Age/Sex: 39 / F ?ADM Date: 03/14/25 ? Loc: HO.MAMMO ? Attending Dr: Lu Estrada MD ? Ordering Physician: Lu Estrada MD ?? Date of Service: 06/07/24 ?? Procedure(s): US breast RT limited mamm only ?? Accession Number(s): [id number] ? cc: Lu Estrada MD ? EXAMINATION: [...] DD/ 1044 ? TD/TT: 06/07/24 1100 ? Manager Of Purchasing: ? Procedure Note Donotuseinterpreter, Image - 06/07/2024 [facility] [address] [place] [address] Ultrasound Report Signed Patient: Ajay Winters#: MM [id number] : 1985Acct:[id number] Age/Sex: 39 / FADM Date: 06/07/24 Loc: HO.MAMMO Attending Dr: Lu Estrada MD Ordering Physician: Lu Estrada MD Date of Service: 06/07/24 Procedure(s): US breast RT limited mamm only Accession Number(s): [id number] cc: Lu Estrada MD EXAMINATION: MM DIAGNOSTIC [...] 06/07/24 1139 DD/ 1044 TD/TT: 06/07/24 1100 Manager Of Purchasing: us Lu Estrada MD IMGavino US PROCEDURES Final Result * BI Mammogram Diagnostic Tomosynthesis Bilateral (06/07/2024 10:00 AM EDT) Anatomical Region Laterality Modality Breast Bilateral Mammography 06/07/2024 10:0 0 AM EDT Narrative 06/07/2024 11:42 AM EDT ? [facility] ? [address] ?[place], [place] [address] ? Mammography Report ? Signed ? Patient: Mckeon Ramsey,Shruti ?MR#: MM ?? [id number] ? : 1985 ?Acct:[id number] ? Age/Sex: 39 / F ?ADM Date: 06/07/24 ? Loc: HO.MAMMO ? Attending Dr: Lu Estrada MD ? Ordering Physician: uL Estrada MD ?Results: 1Negative ? Date of Service: 06/07/24 ?Follow Up: Mammo at 40 or e ?? arlier if clinically needed ? Procedure(s): MM tomosynthesis diagnostic BI ?? Accession Number(s): [id number] ? cc: Lu Estrada MD ? EXAMINATION: [...] DD/ 1000 ? TD/TT: 06/07/24 1018 ? Manager Of Purchasing: ? Procedure Note Amarjit, Image - 06/07/2024 [facility] [address] [place] [address] Mammography Report Signed Patient: Mike Ajay Ramsey#: [id number] : 1985Acct:[id number] Age/Sex: 39 / FADM Date: 06/07/24 Loc: HO.MAMMO Attending Dr: Lu Estrada MD Ordering Physician: Lu Estrada MDResults: 1Negative Date of Service: 06/07/24Follow Up: Mammo at 40 or e arlier if clinically needed Procedure(s): MM tomosynthesis diagnostic BI Accession Number(s): [id number] cc: Lu Estrada MD EXAMINATION: MM DIAGNOSTIC [...] 06/07/24 1139 DD/ 1000 TD/TT: 06/07/24 1018 Manager Of Purchasing: Lu Estrada MD IMG BI PROCEDURES Final Result * (ABNORMAL) CBC auto differential (05/08/2024 10:33 PM EST) Only the most recent of2 resultswithin the time period is included. White Blood Count 6.7 4.8 - 10.8 X10*3/uL [facility] Red Blood Count 4.56 4.20 - 5.50 X10*6/uL [facility] Hemoglobin 13.1 12.0 - 16.0 g/dl [facility] Hematocrit 39.4 37.0 - 47.0 % [facility] Mean Corpuscular Volume 86.4 80.0 - 98.0 fL [facility] Mean Corpuscular Hemoglobin 28.7 27.0 - 33.0 pg [facility] Mean Corpuscular HGB Conc 33.2 31.0 - 35.0 g/dl [facility] Red Cell Distribution Width 13.7 11.0 - 16.0 % [facility] Platelet Count 253 160 - 400 X10*3/uL [facility] Mean Platelet Volume 10.6 9.4 - 12.3 fL [facility] Neutrophils Percent Auto 41.0(L) 45 - 73 % [facility] Imm Gran Pct Auto 0.0 0.0 - 0.4 % [facility] Lymphocytes Percent Auto 50.0(H) 20 - 40 % [facility] Monocytes Percent Auto 7.7 2 - 11 % [facility] Eosinophils Percent Auto 0.8 0 - 4 % [facility] Basophils Percent Auto 0.5 0 - 2 % [facility] NRBC Pct Auto 0.0 0.0 - 0.2 /100WBC [facility] Neutrophils Absolute Auto 2.7 2.0 - 8.3 x10*3/uL [facility] Imm Gran Abs Auto 0.00 0.00 - 0.03 X10*3/uL [facility] Lymphocytes Absolute Auto 3.3 1.2 - 4.9 X10*3/uL [facility] Monocytes Absolute Auto 0.5 0.1 - 1.2 X10*3/uL [facility] Eosinophils Absolute Auto 0.1 0.0 - 0.4 X10*3/uL [facility] Basophils Absolute Auto 0.0 0.0 - 0.2 X10*3/uL [facility] NRBC Abs Auto 0.000 0.0 - 0.012 X10*3/uL [facility] 05/08/2024 10:3 3 PM EST 05/08/2024 10:36 PM EST us Generic External Data Provider LAB BLOOD ORDERAB LES Final Result [facility] [address] [place] [address] [phone] * (ABNORMAL) Comprehensive Metabolic Panel (05/08/2024 10:33 PM EST) Only the most recent of2 resultswithin the time period is included. Sodium 137 135 - 145 mmol/L [facility] Potassium 3.7 3.3 - 5.1 mmol/L [facility] Chloride 107 96 - 108 mmol/L [facility] Carbon Dioxide 21(L) 22 - 29 mmol/L [facility] Anion Gap 13 12 - 20 [facility] Urea Nitrogen (BUN) 14 9 - 16 mg/dL [facility] Creatinine, Serum 0.91 0.5 - 1.4 mg/dL [facility] Creatinine Clr Calc Pharmacy 95.2 [facility] Comment:Provided height and weight: 167.64 cm,87.5 kg.eGFR (calculated from the MDRD study equation) and eCrCl(calculated from the Cockcroft-Gault equation) are based ondifferent parameters and may not yield comparable results.If eCrCl result is absurd, please check patient'sheight/weight. Estimated Glomerular Filt Rate >60 [facility] Comment:Chronic Kidney Disea se: Estimated GFR < 60 mL/min/[id number] Kidney Disease: Estimated GFR < 15 mL/min/1.73m2 Glucose 103 60 - 115 mg/dL [facility] Calcium 9.0 8.4 - 10.2 mg/dL [facility] Bilirubin, Total 0.8 0.0 - 1.0 mg/dL [facility] Aspartate Amino Transferase 19 5 - 31 U/L [facility] Alanine Aminotransferase 10 0 - 31 U/L [facility] Total Protein 8.1(H) 6.5 - 8.0 g/dL [facility] Albumin Level 4.5 3.5 - 5.0 g/dL [facility] Alkaline Phosphatase 57 39 - 117 U/L [facility] 05/08/2024 10:3 3 PM EST 05/08/2024 10:36 PM EST us Generic External Data Provider LAB BLOOD ORDERAB LES Final Result [facility] [address] [place] [address] [phone] * SARS-CoV-2 RNA, Influenza A/B, and RSV RNA, Ql NAAT (05/08/2024 9:23 PM EST) Influenza A PCR NEGATIVE Negative [facility] Influenza B PCR NEGATIVE Negative [facility] Resp Syncy Virus RNA Qual PCR NEGATIVE Negative [facility] SARS COV2 PCR NEGATIVE Negative [facility] Comment:All test results mus t [...] use by authorized laboratories.Testing performed on the [employer] GeneXpert utilizingreal-time RT-PCR.All SARS CoV2 and positive influenza A/B results arereported to [facility]. 05/08/2024 9:23 PM EST 05/08/2024 9:25 PM EST us Generic External Data Provider LAB MICROBIOLOGY - GENERAL ORDERABLES Final Result [facility] [address] [place] [address] [phone] * CT Abdomen Pelvis w/ Contrast (04/30/2024 5:22 AM EST) Anatomical Region Laterality Modality Body, Pelvis, Abdomen Computed T omography 04/30/2024 5:22 AM EST Narrative 04/30/2024 5:24 AM EST ? [facility] ?[address] ?[place] [address] ? CT Scan Report ? Signed with Addenda ? Patient: Mckeon Ramsey,Shruti ?MR#: MM ?? [id number] ? : 1985 ?Acct:[id number] ? Age/Sex: 38 / F ?ADM Date: 04/30/24 ? Loc: HO.ED ? Attending Dr: ? Ordering Physician: Jennifer Santillan MD ?? Date of Service: 04/30/24 ?? Procedure(s): CT abdomen pelvis w IV con ?? Accession Number(s): [id number] ? cc: Jennifer Santillan MD; Lu Estrada MD ? Report Number: ?? [id number]: Total DLP = ??746.00 mGy-cm ?ADDENDUM ?? This document has been electronically signed by: Monie Jenkins MD on ?? 04/30/2024 05:22:49 ? ADDENDUM: ?? Receipt of this report by the clinical staff was confirmed with receiver/laborer, ?? David Rayo on Apr 30, 2024 [...] IV CON - 03/04/24 22:31 EST ?? CT/[place]/SR - CT ABDOMEN PELVIS WO IV CON [...] signed by Monie Jenkins MD in OV> ?04/30/2423 ? DD/ 1 ? TD/TT: 04/30/24521 ? Manager Of Purchasing: ? Procedure Note Amarjit, Tanmay - 04/30/[address] [address] [address] Scan Report Signed with Anjana Patient: Ajay Winters#: [id number] : 1985Acct:[id number] Age/Sex: 38 / FADM Date: 04/30/24 Loc: HO.ED Attending Dr: Ordering Physician: Jennifer Santillan MD Date of Service: 04/30/24 Procedure(s): CT abdomen pelvis w IV con Accession Number(s): [id number] cc: Jennifer Santillan MD; Lu Estrada MD Report Number: [id number]: Total DLP = 746.00 mGy-cm ADDENDUM This [...] W IV CON - 03/04/24 22:[address]/[place]/SR - CT ABDOMEN PELVIS WO IV CON [...] in OV> 04/30/24522 DD/ 1 TD/TT: 04/30/24521 Manager Of Purchasing: [facility] External Provider IMG CT PROCEDURES Edited Result - Final * Urinalysis, Complete, with Reflex to Culture (04/30/2024 1:09 AM EST) Color Urine Yellow [facility] Appearance Urine Clear [facility] PH 5.5 5.0 - 9.0 [facility] Glucose Urine UA Negative Negative mg/dL [facility] Urine Blood Negative Negative [facility] Specific [place] - Urine 1.025 1.005 - 1.025 [facility] Urine Protein Negative Neg-Trace mg/dL [facility] Urine Ketones Negative Negative mg/dL [facility] Nitrite Urine Negative Negative [facility] Leukocyte Esterase Urine Negative Negative [facility] RBC Urine 0-2 0 - 2 /HPF [facility] Urine WBC 0-5 0 - 5 /HPF [facility] Urine Squamous Epithelial Cell 3-5 0 - 2 /HPF [facility] Urine Bacteria Trace None Seen [facility] Hyaline Casts, Urine 0-2 0 - 2 /LPF [facility] 04/30/2024 1:09 AM EST 04/30/2024 1:13 AM EST Narrative [facility] - 04/30/2024 1:21 AM EST [id number], Clean Catch us Generic External Data Provider LAB URINE ORDERAB LES Final Result [facility] [address] [place] [address] [phone] * hCG, Total, Quantitative (04/30/2024 1:09 AM EST) HCG Quantitative <2 mIU/mL [facility] Comment:Weeks post LMP Appr oximate hCG(Last Menstrual Period) Range (mIU/ml)3 - 4 weeks 9 - 1304 - 5 weeks 75 - 2,6005 - 6 weeks 850 - 20,8006 - 7 weeks 4000 - 100,2007 - 12 weeks 11,500 - 289,29736 - 16 weeks 18,300 - 137,51351 - 29 weeks (2nd trimester) 1,400 - 53,71801 - 41 weeks (3rd trimester) 940 - [...] ORDERAB LES Final Result Performing Organization Address [facility] Co de Phone Number [facility] [address] [place] [phone] [phone] * (ABNORMAL) Lipase (04/30/2024 1:09 AM EST) Lipase 86(H) 8 - 78 U/L [facility] 04/30/2024 1:09 AM EST 04/30/2024 1:13 AM EST us fflap External Data Provider LAB BLOOD ORDERAB LES Final Result Performing Organization Address [facility] Phone Number [facility] [address] [place] [phone] * POCT urinalysis dipstick manually resulted [...] 3:20 PM EDT) Triglycerides 88 <150 mg/dL [facility] Comment:Desirable Triglyceri de: less than 150 mg/dLBorderline High Triglyceride 150-199 mg/dLHigh Triglyceride: 200-499 mg/dLVery High Triglyceride: greater than or equal to 5OO mg/dL Cholesterol 183 <200 mg/dL [facility] Comment:Desirable Cholestero l: less than 200 mg/dLBorderline High Cholesterol: 200-239 mg/dLHigh Cholesterol: greater than 239 mg/dL LDL Cholesterol Calculated 126(H) <100 mg/dL [facility] Comment:Desirable LDL: less than 100 mg/dLNear Optimal/Above Optimal LDL: 110- 129 mg/dLBorderline High LDL: 130-159 mg/dLHigh LDL: 160-189 mg/dLVery High LDL: greater than or equal to 190 mg/dL HDL Cholesterol 40(L) >40 mg/dL [facility] Comment:Desirable HDL: great er than 40 mg/dL Note: This HDL assay may give artificially low results in patients with liver disease. Blood 01/22/2024 3:20 PM EDT 01/22/2024 4:05 PM EDT us Lu Estrada MD LAB BLOOD ORDERABLES Final Resul t [facility] [address] [place] [phone] * ThinPrep Imaging Pap and HPV mRNA E6/E7 with Reflex to HPV 16,18/45 (12/05/2023 12:00 AM EDT) HPV 16 RNA TNP [facility] HPV 18/45 RNA [facility] HPV nRNA E6/E7 Not Detected Not Detected [facility] Comment:Methodology: Transcr iption-Mediated AmplificationThis assay detects E6/E7 viral messenger RNA (mRNA) from 14high-risk HPV types (16,18,31,33,35,39,45,51,52,56,58,59,66,68).Cervical sources are required for HPV testing.If a vaginal source from a patient who has had atotal hysterectomy with removal of cervix wassubmitted, please contact the testing laboratoryfor alternative testing options.For additional information, please refer tohttp://education.[employer]/faq/ABD390e4(This link if provided for information/educational purposes only.)THIS TEST WAS PERFORMED AT:[facility] [address] [phone] MILLS MD SOURCE: SEE NOTE [facility] Comment:None given Report Status: [facility] Clinical Information: SEE NOTE [facility] Comment:None given LMP: SEE NOTE [facility] Comment:NONE GIVEN Prev. PAP: SEE NOTE [facility] Comment:NONE GIVEN Prev. BX: SEE NOTE [facility] Comment:NONE GIVEN Statement Of Adequacy: SEE NOTE [facility] Comment:Satisfactory for tahmina luation.Endocervical/transformation zone componentpresent. General Categorization: [facility] Interpretation/Result: SEE NOTE [facility] Comment:Cytology Results: Ne gative for intraepitheliallesion or malignancy. Cytology Comment SEE NOTE [facility] Comment:This Pap test has be en evaluated with computerassisted technology. Manager Of Transportation: SEE NOTE [facility] Comment:[place], CT(ASCP)CT scre ening location: [address] [address] Review Manager Of Transportation: [facility] Pathologist [facility] PAP Infection [facility] See Note SEE NOTE [facility] Comment:EXPLANATORY NOTE:The Pap is a screening test for cervical cancer. It isnot a diagnostic test and is subject to false negativeand false positive results. It is most reliable when asatisfactory sample, regularly obtained, is submittedwith relevant clinical findings and history, and whenthe Pap result is evaluated along with historic andcurrent clinical information. 12/05/2023 12/05/2023 Narrative [facility] - 12/11/2023 1:12 PM EDT SEE SCANNED RESULTS IN EMR us Generic External Data Provider LAB PATHOLOGY ORD ERABLES Final Result [facility] [address] [place] [address] [phone] * HEPATITIS C AB W/REFL TO HCV RNA, QN, PCR (03/16/2020 4:32 PM EST) HEPATITIS C ANTIBODY NON-REACT CORA NON-REACT CORA [facility] INDEX 0.02 <1.00 [facility] Comment: ?? HCV antibody was non-reactive. There is no laboratory ?? evidence of HCV infection. ?? In most cases, no further action is required. However, if recent HCV exposure is suspected, a test for HCV RNA (test code 04722) is suggested. ?? For additional information please refer to http://V[employer]or.[employer]/faq/MBL71g2 (This link is being provided for informational/ educational purposes only.) ?? 03/16/2020 4:32 PM EST us Lu Estrada MD HISTORICAL/NON ORDERABLE LABS Fi nal Result [facility] [address] * HIV 1/2 ANTIGEN/ANTIBODY,FOURTH GENERATION W/RFL (03/16/2020 4:32 PM EST) HIV-1/2 ANTIGEN AND ANTIBODIES, 4TH GENERATION W/ REFLEX NON-REACT CORA NON-REACT CORA [facility] Comment: HIV-1 antigen and HIV-1/HIV-2 [...] ? For additional information please refer to http://Vestor.[employer]/faq/UDQ957 (This link is being provided for informational/ educational purposes only.) ? The performance of this assay has not been clinically validated in patients less than 2 years old. ?? 03/16/2020 4:32 PM EST us Lu Estrada MD LAB BLOOD ORDERABLES Final Resul t [facility] [address] [place] [address], from Last 3 Months or Most Recently Relevant to Health Maintenance [place] [address] [place] [address] C3 [facility] MEDICAID STAND ADULT Care Teams Content Analyst Relationship Specialty Start Date End Date Lu Estrada MD [address] [place] [phone] PCP - General Family Medicine 03/27/18
--- OUTSIDE RECORDS SUMMARY | 2024-07-25 07:42 | XMS_ITS | Encounter Summary ---
Author Organization [employer] Address [address] [facility] 7t [place] [address] Care Team Providers Care Hydrotel Operator Name Role Phone Lu Estrada MD Primary Care Provider [phone] Reason for Visit * Reason Comments Med Refill Encounter Details Date Type Department Care Team ([facility] Contact Info) Description 04/22/2022 Refill [facility] CH[facility] MED & PEDS [address] [place] [address] Vandana Black, ANP [address] [place] [address] Social History Tobacco Use Types Packs/Day Years [...] Upcoming Encounters Date Type Department Care Team ([facility] Contact Info) Description 09/11/2024 10:00 AM EDT Office Visit [facility] ADULT DENTAL [address] [place] [address] Mc Ennisaris [address] [place] [address] documented as of this encounter Visit Diagnoses Not on filedocumented in this encounter Care Teams Hydrotel Operator Relationship Specialty Start Date End Date Lu Estrada MD [address] [place] [address] PCP - General Family Medicine 03/27/18 documented as of this encounter
--- OUTSIDE RECORDS SUMMARY | 2024-07-25 07:42 | XMS_ITS | Encounter Summary ---
Author Organization [employer] Address [address] [facility] [address] [place] [address] Care Team Providers Care Brim Flexer Name Role Phone Lu Estrada MD Primary Care Provider [phone] Encounter Details Date Type Department Care Team ([facility] st Contact Info) Description 05/29/2023 Abstract [facility] MEDICINE [address] [place] [address] Lu Estrada MD [address] [place] [address] Social History Tobacco Use Types Packs/Day Years [...] 10:00 AM EDT Office Visit [facility] ADULT DENTAL [address] [place], [place] [phone] Raymon, Heidi [address] [place] [address] documented as of this encounter Procedures Procedure [...] documented as of this encounter Care Teams Brim Flexer Relationship Specialty Start Date End Date Lu Estrada MD [address] [place], [place] [phone] PCP - General Family Medicine 03/27/18 documented as of this encounter
--- OUTSIDE RECORDS SUMMARY | 2024-07-25 07:42 | XMS_ITS | Encounter Summary ---
Author Organization [employer] Address [address] [facility] 7t [place] [address] Care Team Providers Care Demurrage Clerk Name Role Phone Lu Estrada MD Primary Care Provider [phone] Reason for Visit * Reason Comments Med Refill Encounter Details Date Type Department Care Team ([facility] st Contact Info) Description 05/01/2023 Refill [facility] MEDICINE [address] [place] [address] Lorri Eduardo DO [address] [place], [place] [phone] Social History Tobacco Use Types Packs/Day Years [...] Description 09/11/2024 10:00 AM EDT Office Visit [facility] ADULT DENTAL [address] [place] [address] Raymon, Heidi [address] [place] [address] documented as of this encounter Visit Diagnoses Not on filedocumented in this encounter Additional Health Concerns Assessment Noted Time PHQ-9 Depression Total Score: 0 03/08/20 23 11:18 AM EST documented as of this encounter Care Teams Demurrage Clerk Relationship Specialty Start Date End Date Lu Estrada MD [address] [place] [address] PCP - General Family Medicine 03/27/18 documented as of this encounter
--- OUTSIDE RECORDS SUMMARY | 2024-07-25 07:42 | XMS_ITS | Encounter Summary ---
Author Organization [employer] Address [address] [place] [address] 7t [place] [address] Care Team Providers Care Mini Lab Operator Name Role Phone Lu Estrada MD Primary Care Provider [phone] Reason for Visit * Reason Comments Med Refill Encounter Details Date Type Department Care Team ([facility] Contact Info) Description 06/08/2022 Refill [facility] [address] [place] [address] Danny Lundy MD [address] [place] [address] Social History Tobacco Use Types Packs/Day Years [...] Description 09/11/2024 10:00 AM EDT Office Visit [facility] ADULT DENTAL [address] [place] [address] Heidi Ennis [address] [place] [address] documented as of this encounter Visit Diagnoses Not on filedocumented in this encounter Care Teams Mini Lab Operator Relationship Specialty Start Date End Date Lu Estrada MD [address] [place] [address] PCP - General Family Medicine 03/27/18 documented as of this encounter
--- OUTSIDE RECORDS SUMMARY | 2024-07-25 07:43 | XMS_ITS | Encounter Summary ---
Author Organization [employer] Address [address] [facility] 7t [place] [address] Care Team Providers Care Ferry Boat Captain Name Role Phone Lu Estrada MD Primary Care Provider [phone] Reason for Visit * Reason Comments Med Refill Encounter Details Date Type Department Care Team ([facility] st Contact Info) Description 03/09/2023 Refill [facility] MEDICINE [address] [place] [address] Lorri Eduardo DO [address] [place], [place] [phone] Social History Tobacco Use Types Packs/Day Years [...] [facility] ADULT DENTAL [address] [place] [address] Raymon, Heidi [address] [place] [address] documented as of this encounter Visit Diagnoses Not on filedocumented in this encounter Additional Health Concerns Assessment Noted Time PHQ-9 Depression Total Score: 0 03/08/20 23 11:18 AM EST documented as of this encounter Care Teams Ferry Boat Captain Relationship Specialty Start Date End Date Lu Estrada MD [address] [place] [address] PCP - General Family Medicine 03/27/18 documented as of this encounter
--- OUTSIDE RECORDS SUMMARY | 2024-07-25 07:43 | XMS_ITS | Encounter Summary ---
Author Organization [employer] Address [address] [facility] [address] [place] [address] Care Team Providers Care Aquaculture Worker Name Role Phone Lu Estrada MD Primary Care Provider [phone] Reason for Visit * Reason Comments Med Refill Encounter Details Date Type Department Care Team ([facility] st Contact Info) Description 03/09/2023 Refill [facility] CHC MED & PEDS [address] [place], [place] [phone] Vandana Black, ANP [address] [place] [address] Social History Tobacco Use Types Packs/Day Years [...] Description 09/11/2024 10:00 AM EDT Office Visit [facility] ADULT DENTAL [address] [place] [address] Raymon, Heidi [address] [place] [address] documented as of this encounter Visit Diagnoses Not on filedocumented in this encounter Additional Health Concerns Assessment Noted Time PHQ-9 Depression Total Score: 0 03/08/20 23 11:18 AM EST documented as of this encounter Care Teams Aquaculture Worker Relationship Specialty Start Date End Date Lu Estrada MD [address] [place] [address] PCP - General Family Medicine 03/27/18 documented as of this encounter
--- NOTE | 2024-08-27 13:19 | HO.ANESPROP2 ---
Documented by User: Tiffany Ricks NP 08/27/24 13:20 HPI - Anesthesia Eval Consult details Narrative: 39yo F for Right Dorsel Excision Ganglion wrist PMFSH Active Problems Active Problems: All Active Problems H/O ovarian cystectomy (Acute) Hx of bilateral salpingectomy (Acute) History of loop electrical excision procedure (LEEP) (Acute) Encounter for screening examination for sexually transmitted disease (Acute) Vaginal discharge (Acute) Vaginal itching (Acute) Abnormal uterine bleeding (Acute) Para-ovarian cyst (Acute) Constipation by delayed colonic transit (Acute) Pelvic pain (Acute) Well woman exam with routine gynecological exam (Acute) Upper abdominal pain (Acute) Acute recurrent tonsillitis (Acute) Mastalgia (Acute) Localized swelling on right hand (Acute) Left sided abdominal pain (Acute) Rotator cuff tendonitis (Acute) Myofascial neck pain (Acute) Bacterial vaginosis (Acute) Chlamydia infection (Acute) Surveillance for Depo-Provera contraception (Acute) Potential exposure to STD (Acute) Hx of abnormal cervical Pap smear (Acute) Menorrhagia (Acute) Hx of tubal ligation (Acute) Depot contraception (Acute) Hemorrhoids (Acute) Numbness and tingling of right upper and lower extremity (Acute) Ganglion cyst of dorsum of right wrist (Acute) Dyspareunia (Acute) Simple ovarian cyst (Acute) Pelvic pain in female (Acute) Encounter to discuss test results (Acute) Mass of joint of right wrist (Acute) Hypertension (Acute) IBS (irritable bowel syndrome) (Acute) Fibromyalgia (Acute) Asthma (Acute) Migraines (Acute) Wrist pain, right (Acute) Abdominal pain (Acute) Right ovarian cyst (Acute) Abdominal cramping (Acute) Encounter to discuss test results (Acute) Anemia (Acute) Surveillance for Depo-Provera contraception (Acute) Irregular menses (Acute) Heavy menstrual bleeding (Acute) GERD (gastroesophageal reflux disease) (Acute) Acromioclavicular joint separation (Acute) Nephrolithiasis (Acute) Left knee pain (Acute) Allergic rhinitis (Acute) Depression with anxiety (Acute) Ovarian cyst (Acute) Past Medical History Medical History Simple ovarian cyst Hypertension IBS (irritable bowel syndrome) Fibromyalgia Asthma Migraines Family History Family History Mother Diabetes HTN (hypertension) Asthma Brother Asthma Surgical History Surgical History Hx of colonoscopy History of esophagogastroduodenoscopy (EGD) History of loop electrical excision procedure (LEEP) Hx of tubal ligation Social History Social History Household Members: Children Are you a primary long term acute care registered nurse to a significant other at home: No Do you presently have visiting nurse or other home services: No Alcohol intake: never Patient Tobacco Use Status: Never used Tobacco Use of substances other than those prescribed or required for medical reasons: Yes Substance Use Type: Marijuana Substance Use Frequency: Daily Have you been hit, kicked, punched, or otherwise hurt by someone within the past year? 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 Sexual orientation: Straight/Heterosexual Gender identity: Female Meds Allergies Allergy/AdvReac Type Severity Reaction Status Date / Time No Known Allergies Allergy Verified 08/29/24 06:20 [No Known Allergies*] Home Medications ?Medication ?Instructions ?Recorded ?Confirmed ?Last Taken ?Type albuterol sulfate 90 mcg/actuation 1 inh inhalation QID 01/15/20 07/19/24 Unknown History aerosol inhaler (Proventil HFA) [id number]-dxeezcdixuufz-jafkqpwz 250 1 tab PO Q4-6H PRN Headache 01/15/20 07/19/24 Unknown History mg-250 mg-65 mg tablet (Excedrin Migraine) loratadine 10 mg tablet (Allergy 10 mg PO DAILY 01/15/20 07/19/24 Unknown History Relief (loratadine)) montelukast 10 mg tablet 10 mg PO BEDTIME 01/15/20 07/19/24 Unknown History (Singulair) cholecalciferol (vitamin D3) 50 50 mcg PO DAILY 03/16/22 07/19/24 Unknown History mcg (2,000 unit) capsule (Vitamin D3) lisinopril 10 mg tablet 10 mg PO DAILY 03/16/22 07/19/24 Unknown History pantoprazole 40 mg tablet,delayed 40 mg PO BID 03/16/22 07/19/24 Unknown History release Exam Narrative Narrative: EKG 02/2024 Vent. Rate : 060 BPM Atrial Rate : 060 BPM P-R Int : 142 ms QRS Dur : 094 ms QT Int : 404 ms P-R-T Axes : 017 031 051 degrees QTc Int : 404 ms Normal sinus rhythm Normal ECG When compared with ECG of 22-MAR-2022 15:41, No significant change was found Assessment and Plan Assessment Anesthesia Assessment: Chart Reviewed Documented by User: Jazmine James MD 08/29/24 07:54 PMFSH Past Medical History Medical History Simple ovarian cyst Hypertension IBS (irritable bowel syndrome) Fibromyalgia Asthma Migraines Family History Family History Mother Diabetes HTN (hypertension) Asthma Brother Asthma Family history of problems with anesthesia: No Surgical History Surgical History Hx of colonoscopy History of esophagogastroduodenoscopy (EGD) History of loop electrical excision procedure (LEEP) Hx of tubal ligation History of Problems with Anesthesia: No Social History Social History Household Members: Children Are you a primary long term acute care registered nurse to a significant other at home: No Do you presently have visiting nurse or other home services: No Alcohol intake: never Patient Tobacco Use Status: Never used Tobacco Use of substances other than those prescribed or required for medical reasons: Yes Substance Use Type: Marijuana Substance Use Frequency: Daily Have you been hit, kicked, punched, or otherwise hurt by someone within the past year? 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 Sexual orientation: Straight/Heterosexual Gender identity: Female Meds Allergies Allergy/AdvReac Type Severity Reaction Status Date / Time No Known Allergies Allergy Verified 08/29/24 06:20 [No Known Allergies*] Home Medications ?Medication ?Instructions ?Recorded ?Confirmed ?Last Taken ?Type albuterol sulfate 90 mcg/actuation 1 inh inhalation QID 01/15/20 07/19/24 Unknown History aerosol inhaler (Proventil HFA) zisydfu-tumnytdhmwxlv-vbxtsxkp 250 1 tab PO Q4-6H PRN Headache 01/15/20 07/19/24 Unknown History mg-250 mg-65 mg tablet (Excedrin Migraine) loratadine 10 mg tablet (Allergy 10 mg PO DAILY 01/15/20 07/19/24 Unknown History Relief (loratadine)) montelukast 10 mg tablet 10 mg PO BEDTIME 01/15/20 07/19/24 Unknown History (Singulair) cholecalciferol (vitamin D3) 50 50 mcg PO DAILY 03/16/22 07/19/24 Unknown History mcg (2,000 unit) capsule (Vitamin D3) lisinopril 10 mg tablet 10 mg PO DAILY 03/16/22 07/19/24 Unknown History pantoprazole 40 mg tablet,delayed 40 mg PO BID 03/16/22 07/19/24 Unknown History release Exam Airway Mallampati Class: II TM Dist: >3cm Neck ROM: Full Heart: rrr Lungs: cta Assessment and Plan Assessment Anesthesia Assessment: Anesthesia Plan Discussed and Smoking Cess. Discussed Final Anesthetic Review Family History of Problems with Anesthesia: No History of Problems with Anesthesia: No NPO: Yes ASA Class: III ( albuterol updraft forwheezing) Final Preanesthetic Review: No Changes in Pt Med Stat, Meds/Allgs Chart Reviewed, Consent Obtained/Reviewed and Anes Risks/Benef Reviewed Patient Risk: Intermediate Procedure Risk: Low Anesthetic Plan Anesthetic Plan: GA Disposition: Standard PACU
[2024-08-27 15:44] VITALS: BMI 31.8
[2024-08-29] VITALS (7 sets, daily range): BP systolic 109–140; BP diastolic 65–95; PULSE 72–101; RESP 12–20; TEMP 36.4–37; O2SAT 96–99; BMI 30.6
[2024-08-29] MEDS: Lactated Ringers 1,000 ML 100 ML IVCONT (06:48)
--- NOTE | 2024-08-29 07:36 | P.OP_ITS ---
Operative Note Operative Note Date of Service: 08/29/24 Narrative: Operative Note Narrative: Preop diagnosis: 1. Right dorsal wrist ganglion Postop diagnosis: Same Procedure: 1. Right dorsal wrist ganglion excisional biopsy Surgeon: Hollie Stauffer MD Boardinghouse Keeper: Richie BEACH Anesthesia: General Findings: 1. Right dorsal wrist ganglion approximately 2 cm diameter, filled with clear viscous fluid consistent with a ganglion Tourniquet time: 13 minutes EBL: 5.0 ml Specimen: dorsal wrist ganglion Drains: None Complications: None Disposition: Brought to the recovery room in stable condition Plan: Follow-up in 10-14 days for wound check, suture removal and to check pathology Indications: The patient is 39 years old with a right dorsal wrist ganglion that has been unresponsive to nonoperative management. The risks and benefits of operative treatment, including but not limited to risk of damage to blood vessels, nerves, tendons, infection, recurrence, persistent pain or numbness, or need for further surgery were discussed with the patient and they wished to proceed with surgery. Procedure: Once consent was obtained patient was brought back to the operating suite and placed in the operating table in a supine position. Perioperative antibiotics and anesthesia was administered by the anesthesia team. A tourniquet was applied to the proximal aspect of the right upper extremity and the limb was prepped and draped in a standard surgical fashion. The limb was elevated exsanguinated with Esmarch bandage and the tourniquet inflated to 250 mm of mercury for a total tourniquet time of 13 minutes. A 2. cm longitudinal incision was made over the dorsal aspect of the right hand/ wrist, centered over the dorsal wrist ganglion. Ganglion was located over the dorsal aspect of her right hand at about the level of the CMC joint of the right wrist. The incision was made with a #15 blade through the skin to the subcutaneous tissues. Tenotomy scissors were then used to carefully dissect down through the subcutaneous layer to the dorsal wrist ganglion. It measured approximately 2 cm in diameter and was filled with clear viscous fluid consistent with a ganglion. It was carefully mobilized from the surrounding soft tissues using tenotomy and iris scissors. It's stalk passed through the interval between the 4th dorsal compartment tendons. The Bovie was used to cauterize the stalk to reduce risk of recurrence., and the ganglion was cut free and removed to the back table to be sent for histopathologic review. No further masses were identified. At this point the tourniquet was deflated and hemostasis obtained with a brief period of local pressure and monopolar electrocautery. Wound was irrigated with normal saline. The subcutaneous layer was closed with some 4-0 Vicryl suture, and the skin edges were reapproximated with some 5-0 Prolene suture. The wound was infiltrated with some 0.5% plain ropivacaine for postop pain control and a sterile dressing was applied. The patient appears to have tolerated the procedure well and with no complications. All digits were well vascularized conclusion of the case.
--- NOTE | 2024-08-29 07:36 | MHC.SHP ---
Pre-Procedural Eval Section A - 24 Hr Update-Section A only Date of Service: 08/29/24 The patient is an INPATIENT: No Changes since office visit: No Cold of Flu in the past 2 weeks, No New Medical Problems, No Changes in Medication and No Patient answered all questions The patient has been examined within 24 hours of the surgical procedure. The History & Physical has been completed within 30 days and I have reviewed it.: Yes Section B - Complete if H&P > 30 days Chief Complaint: Ganglion, right wrist Allergies: Allergies Allergy/AdvReac Type Severity Reaction Status Date / Time No Known Allergies Allergy Verified 08/29/24 06:20 [No Known Allergies*] Plan I have reviewed the history and physical and performed a pertinent physical examination on my patient. No changes have occurred unless specified. Time Spent With Patient Time: Total time managing care of this patient today ____ minutes.
[2024-08-29] MEDS: ceFAZolin Sodium/Dextrose,Iso 2 GM/50 ML PIGGYBACK IV (07:45)
[2024-08-29] MEDS: Acetaminophen 1,000 MG/100 ML PIGGYBACK 400 MG IV (07:54)
== END 2024-08-29 09:53 | disposition home or self-care (01) ==
PROVIDERS: PCP Family Medicine; Visit Provider Orthopaedic Surgery
PROC: (CPT 25111; principal; 2024-08-29 07:30)
DX: M67.431 Ganglion, right wrist (principal); M79.7 Fibromyalgia; I10 Essential (primary) hypertension; J45.909 Unspecified asthma, uncomplicated; G43.909 Migraine, unspecified, not intractable, without status migrainosus; Z79.51 Long term (current) use of inhaled steroids; Z79.899 Other long term (current) drug therapy; Z98.890 Other specified postprocedural states
CPT/HCPCS: 25111; 88304; J0131; J0690; J1100; J2003; J2004; J2405; J2704; J2795; J3010

== ENCOUNTER → 2024-08-29 06:03 | Outpatient (BNV) | payer MEDICAID, SELFPAY | PROVIDERS: PCP Family Medicine; Visit Provider Orthopaedic Surgery | DX: M67.431 Ganglion, right wrist (principal) | CPT/HCPCS: 25111 ==

== ENCOUNTER 2024-09-13 13:00 | Outpatient (AMB) | payer MEDICAID, SELFPAY ==
--- NOTE | 2024-09-13 13:15 | MHC.OFFVIS ---
Vital Signs 09/13/24 13:21 Handedness Right Intake Visit Reasons: PO RT DWG 08/29/24 AR Intake Note: Shruti is a 39 year old right hand dominant female who presents today for a post operative appointment status post right dorsal wrist ganglion excisional biopsy DOS: 08/29/[address] Hollie Stauffer. atient reports she has been having burning pain that radiates up into her right elbow since her procedure. Reports an increase in her symptoms with flexion and extension of her wrist. During her suture removal patient experienced a high amut of discomfort. She states she is also having numbness and tingling in the right hand. Allergies No Known Allergies (No Known Allergies*) Allergy (Verified 09/13/24 13:18) HPI HPI PO RT DWG 08/29/24 AR: Details: Shruti is a 39 year old right hand dominant female who presents today for a post operative appointment status post right dorsal wrist ganglion excisional biopsy DOS: 08/29/[address] Hollie Stauffer. Patient reports she has been having burning pain that radiates up into her right elbow since her procedure. Reports extreme tenderness to palpation of the incision site, even with very gentle light touch, or just applying the dressing. Reports an increase in her symptoms with flexion and extension of her wrist. During her suture removal patient experienced a high amount of discomfort. She states she is also having numbness and tingling in the right hand. [facility] Medical History Simple ovarian cyst Hypertension IBS (irritable bowel syndrome) Fibromyalgia Asthma Migraines Surgical History Hx of colonoscopy History of esophagogastroduodenoscopy (EGD) History of loop electrical excision procedure (LEEP) Hx of tubal ligation Family History Mother Diabetes HTN (hypertension) Asthma Brother Asthma Social History Household Members: Children Are you a primary assurance services manager health care to a significant other at home: No Do you presently have visiting nurse or other home services: No Alcohol intake: never Comment: counts correct Patient Tobacco Use Status: Never used Tobacco Substance Use Type: Marijuana Advance Directives Date on File: 08/29/24 Current occupational status: employed 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 Sexual orientation: Straight/Heterosexual Gender identity: Female Female Reproductive History Menstrual Age of Menarche: 15 Review of Systems Const All systems reviewed & are unremarkable except as noted in HPI and below Physical Exam Const General: no acute distress and alert Orientation/consciousness: patient oriented x3 Neuro General: patient oriented x3 Extrem Other: Evaluation of Right Upper Extremity: The patient is alert, oriented, and in no acute distress Neuro: Median, Ulnar, Radial nerves motor and sensory intact and sensation is normal to the tips of all digits Vascular: Cap refill brisk ROM: She can make a fist and extend all her digits Skin: Well approximated and well healing incision site noted on the dorsal aspect of the right wrist with no erythema, drainage, evidence of infection Patient reports significant tenderness with even very light touch of the incision site No edema noted Psych Appearance: grossly normal Affect: normal affect Attitude: cooperative Assessment & Plan Assessment & Plan (1) Ganglion cyst of dorsum of right wrist: Code(s): M67.431 - Ganglion, right wrist Category: Medical Plan 1. Status post dorsal wrist ganglion excision DOS 08/29/2024 Patient appears to be recovering fairly well postoperatively Patient is educated about the typical recovery course Patient is educated that this time that has likely she has developed a hypersensitivity reaction about the incision site on the dorsal wrist Patient is educated on home exercises that can be performed to alleviate hypersensitivity Patient is also referred to OT for desensitization protocol of the incision site Patient is amenable to this plan Follow-up in 4-5 weeks for reassessment, sooner with any acute concerns Orders: Orders OT Evaluation and Treatment Today M67.431 - Ganglion, right wrist Coding Level of Care Code Global (23963) Diagnoses Ganglion cyst of dorsum of right wrist M67.431
== END 2024-09-13 13:38 | disposition home or self-care (01) ==
LOC: HO.HOS 13:01
PROVIDERS: PCP Family Medicine
DX: M67.431 Ganglion, right wrist (principal)
CPT/HCPCS: 99024

== ENCOUNTER → 2024-09-13 13:00 | Outpatient (BNVA) | payer SELFPAY | PROVIDERS: PCP Family Medicine | DX: M67.431 Ganglion, right wrist (principal) | CPT/HCPCS: 99212 ==

== ENCOUNTER 2024-11-21 11:24 | Outpatient (REF) | payer MEDICAID, SELFPAY ==
[2024-11-21 16:41] LABS: CT PCR NOT DETECTED (Not Detect.); NG PCR NOT DETECTED (Not Detect.)
== END 2024-11-21 11:25 | disposition home or self-care (01) ==
LOC: HO.LNP 11:24
PROVIDERS: PCP Family Medicine; Visit Provider Obstetrics & Gynecology
DX: R10.2 Pelvic and perineal pain (principal); R31.29 Other microscopic hematuria; N89.8 Other specified noninflammatory disorders of vagina; Z32.02 Encounter for pregnancy test, result negative; Z98.51 Tubal ligation status
CPT/HCPCS: 81002; 81025; 87086; 87491; 87591; 99212

== ENCOUNTER 2024-11-21 11:24 | Outpatient (AMB) | payer MEDICAID, SELFPAY ==
--- NOTE | 2024-11-21 11:38 | MHC.OFFVIS ---
Intake Visit Reasons: pelvic pain Allergies No Known Allergies (No Known Allergies*) Allergy (Verified 09/13/24 13:18) HPI Comments Details: The patient is presenting with bilateral lower pelvic pain started 1-2 months ago. It's intermittent in nature lasting few seconds and occurs 3x/day. it is not associated with any constipation, no dysuria, frequency incontinence, no n/v, no feverishness PFSH Medical History Simple ovarian cyst Hypertension IBS (irritable bowel syndrome) Fibromyalgia Asthma Migraines Surgical History Hx of colonoscopy History of esophagogastroduodenoscopy (EGD) History of loop electrical excision procedure (LEEP) Hx of tubal ligation Family History Mother Diabetes HTN (hypertension) Asthma Brother Asthma Social History Household Members: Children Are you a primary critical care educator to a significant other at home: No Do you presently have visiting nurse or other home services: No Alcohol intake: never Comment: counts correct Patient Tobacco Use Status: Never used Tobacco Substance Use Type: Marijuana Advance Directives Date on File: 08/29/24 Current occupational status: employed 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 Sexual orientation: Straight/Heterosexual Gender identity: Female Female Reproductive History Menstrual Age of Menarche: 15 Review of Systems Const All systems reviewed & are unremarkable except as noted in HPI and below Physical Exam General: Yes no CVA tenderness External Female Exam: normal external appearance and normal appearance of the urethra Speculum Exam - Vagina: normal appearance of the vagina, normal palpation, no lesions and no masses Speculum Exam - Cervix: normal appearance of the cervix, normal palpation, no lesions, no masses and nontender Bimanual exam- vagina & uterus: normal bimanual exam, normal palpation, uterine size normal, normal palpation, uterine shape normal, No Cervical tenderness present and non-tender Bimanual Exam- Adnexa, other: normal adnexae Back/Spine/Pelvis Back: no CVA tenderness Assessment & Plan Assessment & Plan (1) Pelvic pain in female: Code(s): R10.2 - Pelvic and perineal pain Category: Medical Plan: Urine test done in the office was negative. GC and chlamydia taken and pelvic ultrasound ordered. Discussed with the patient the differential diagnosis of pelvic pain including but not limited to adnexal, uterine masses, pelvic infections (PID), GI the (Irritable bowel syndrome, diverticulitis, others), musculoskeletal, myofascial pain abdominal wall , adhesions, endometriosis, psychological and others causes. Will check results and treat accordingly. All questions answered, the patient verbalized understanding. Instructed the patient to schedule an ultrasound and a follow-up appointment in 2 weeks. All questions answered, the patient verbalized understanding and agreed with the plan. (2) Microscopic hematuria: Code(s): R31.29 - Other microscopic hematuria Category: Medical Plan: Urine dip showed microscopic hematuria, urine culture sent. Will repeat urine dip in 2 weeks. Discussed with the patient the possible causes of microscopic hematuria including but not limited to: interstitial cystitis, polyps, stones, masses, urethral inflammatory processes and others. If Urine Culture is negative and repeat urine dip in 2 weeks shows persistent microscopic hematuria, will proceed with CT abdomen/pelvis and urology referral. Instructions given the patient to schedule a 2 week urine dip follow-up appointment. All questions answered and the patient verbalized understanding. Orders: Orders US pelvic and transvaginal Today R10.2 - Pelvic and perineal pain Coding Level of Care Code Est Pt Level 3 (02127) Diagnoses Pelvic pain in female R10.2 Microscopic hematuria R31.29
--- OUTSIDE RECORDS SUMMARY | 2024-11-21 12:44 | XMS_ITS | Encounter Summary ---
Author Organization [employer] Address [address] [place] [address] [address] [place] [address] Care Team Providers Care Vegetable Loader Name Role Phone Lu Estrada MD Primary Care Provider [phone] Reason for Referral * Consultation (Routine) - Authorized Specialty Diagnoses / Procedures Referred By Amanda mead Referred To Contact Orthopaedic Surgery Diagnoses Ganglion cyst of wrist, right Lu Estrada MD [address] [place] [address] Phone: tel: fax: [facility] Referral ID Status Reason Start Date Expiration Date Visits Requested Visits Authorized [id number] Authorized Specialty Services Required 06/25/2024 06/25/2025 12 12 Encounter Details Date Type Department Care Team (Late st Contact Info) Description 06/24/2024 Orders Only [facility] [address] [place] [address] [phone] Lu Estrada MD [address] [place], [place] [phone] Ganglion cyst of wrist, right (Primary Dx) [...] Care Team (Late st Contact Info) Description 12/05/2024 9:15 AM EDT Office Visit [facility] [address] [place] [address] Aziza Mckoy, OD [address] [place] [address] 12/25/2024 9:45 AM EDT Office Visit [facility] [address] [place] [address] Lu Estrada MD [address] [place] [address] Scheduled Referrals Name Type Priority Associated Diagnoses [...] documented as of this encounter Care Teams Vegetable Loader Relationship Specialty Start Date End Date Lu Estrada MD [address] [place] [address] PCP - General Family Medicine 03/27/18 documented as of this encounter
--- OUTSIDE RECORDS SUMMARY | 2024-11-21 12:44 | XMS_ITS | Encounter Summary ---
Author Organization [employer] Address [address] [place] [address] 7t [place] [address] Care Team Providers Care Child Abuse Worker Name Role Phone Lu Estrada MD Primary Care Provider [phone] Reason for Visit * Reason Onset Date Comments Appointment Request 12/23/2022 Derm Encounter Details Date Type Department Care Team ([facility] Contact Info) Description 12/23/2022 Telephone [facility] [address] [place] [address] Lu Estrada MD [address] [place] [address] Appointment Request (Derm ) Social History Tobacco [...] Description 12/05/2024 9:15 AM EDT Office Visit [facility] [address] [place], [place] [phone] Aziza Mckoy, OD [address] [place] [address] 12/25/2024 9:45 AM EDT Office Visit [facility] [address] [place] [address] Lu Estrada MD [address] [place] [address] documented as of this encounter Visit Diagnoses Not on filedocumented in this encounter Care Teams Child Abuse Worker Relationship Specialty Start Date End Date Lu Estrada MD [address] [place], [place] [phone] PCP - General Family Medicine 03/27/18 documented as of this encounter
--- OUTSIDE RECORDS SUMMARY | 2024-11-21 12:44 | XMS_ITS | Encounter Summary ---
Author Organization [email or web address] Address [address] [place] [address] 7t [place] [address] Care Team Providers Care Subassembly Supervisor Name Role Phone Lu Estrada MD Primary Care Provider [phone] Encounter Details Date Type Department Care Team ([facility] Contact Info) Description 10/17/2022 Abstract [facility] [address] [place] [address] Raymon Heidi [address] [place] [address] Social History Tobacco Use Types Packs/Day Years [...] Upcoming Encounters Date Type Department Care Team ([facility] Contact Info) Description 12/05/2024 9:15 AM EDT Office Visit [facility] [address] [place], [place] [phone] Aziza Mckoy, OD [address] [place] [address] 12/25/2024 9:45 AM EDT Office Visit [facility] [address] [place] [address] Lu Estrada MD [address] [place] [address] documented as of this encounter Visit Diagnoses Not on filedocumented in this encounter Care Teams Subassembly Supervisor Relationship Specialty Start Date End Date Lu Estrada MD [address] [place] [address] PCP - General Family Medicine 03/27/18 documented as of this encounter
--- OUTSIDE RECORDS SUMMARY | 2024-11-21 12:45 | XMS_ITS | Encounter Summary ---
Author Organization [employer] Address [address] [facility] 7t [place] [address] Care Team Providers Care Lithograph Operator Name Role Phone Lu Estrada MD Primary Care Provider [phone] Reason for Visit * Reason Comments Med Refill Encounter Details Date Type Department Care Team ([facility] st Contact Info) Description 03/09/2023 Refill [facility] [address] [place] [address] Lorri Eduardo, [address] [place] [address] Social History Tobacco Use Types Packs/Day Years [...] Description 12/05/2024 9:15 AM EDT Office Visit [facility] [address] [place], [place] [phone] Aziza Mckoy, OD [address] [place] [address] 12/25/2024 9:45 AM EDT Office Visit [facility] [address] [place] [address] Lu Estrada MD [address] [place] [address] documented as of this encounter Visit Diagnoses Not on filedocumented in this encounter Additional Health Concerns Assessment Noted Time PHQ-9 Depression Total Score: 0 03/08/20 23 11:18 AM EST documented as of this encounter Care Teams Lithograph Operator Relationship Specialty Start Date End Date Lu Estrada MD [address] [place] [address] PCP - General Family Medicine 03/27/18 documented as of this encounter
--- OUTSIDE RECORDS SUMMARY | 2024-11-21 12:45 | XMS_ITS | Encounter Summary ---
Author Organization [employer] Address [address] [place] [address] 7t [place] [address] Care Team Providers Care Advisory Software Engineer Name Role Phone Lu Estrada MD Primary Care Provider [phone] Encounter Details Date Type Department Care Team ([facility] Contact Info) Description 03/18/[address] [facility] [address] [place] [address] Viet Kellogg DDS [address] [place] [address] Social History Tobacco Use Types Packs/Day Years [...] Upcoming Encounters Date Type Department Care Team ([facility] Contact Info) Description 12/05/2024 9:15 AM EDT Office Visit [facility] [address] [place] [address] Aziza Mckoy, OD [address] [place] [address] 12/25/2024 9:45 AM EDT Office Visit [facility] [address] [place], [place] [phone] Lu Estrada MD [address] [place], [place] [phone] documented as of this encounter Visit Diagnoses Not on filedocumented in this encounter Care Teams Advisory Software Engineer Relationship Specialty Start Date End Date Lu Estrada MD [address] [place], [place] [phone] PCP - General Family Medicine 03/27/18 documented as of this encounter
--- OUTSIDE RECORDS SUMMARY | 2024-11-21 12:45 | XMS_ITS | Encounter Summary ---
Author Organization [employer] Address [address] [place] [address] 7t [place] [address] Care Team Providers Care Body Straightener Name Role Phone Lu Estrada MD Primary Care Provider [phone] Encounter Details Date Type Department Care Team (Late st Contact Info) Description 04/04/2022 Abstract [facility] [address] [place] [address] Viet Kellogg DDS [address] [place] [address] Social History Tobacco Use Types Packs/Day Years [...] Description 12/05/2024 9:15 AM EDT Office Visit [facility] [address] [place] [address] Aziza Mckoy, OD [address] [place] [address] 12/25/2024 9:45 AM EDT Office Visit [facility] [address] [place] [address] Lu Estrada MD [address] [place], [place] [phone] documented as of this encounter Visit Diagnoses Not on filedocumented in this encounter Care Teams Body Straightener Relationship Specialty Start Date End Date Lu Estrada MD [address] [place] [address] PCP - General Family Medicine 03/27/18 documented as of this encounter
--- OUTSIDE RECORDS SUMMARY | 2024-11-21 12:45 | XMS_ITS | Encounter Summary ---
Author Organization [employer] Address [address] [place] [address] 7 [place] [address] Care Team Providers Care Aged Or Disabled Care Worker Name Role Phone Lu Estrada MD Primary Care Provider [phone] Encounter Details Date Type Department Care Team (Late Contact Info) Description 04/19/2022 Orders Only [facility] [address] [place] [address] Lu Estrada MD [address] [place] [address] Social History Tobacco Use Types Packs/Day Years [...] Description 12/05/2024 9:15 AM EDT Office Visit [facility] [address] [place] [address] Aziza Mckoy, OD [address] [place] [address] 12/25/2024 9:45 AM EDT Office Visit [facility] [address] [place] [address] Lu Estrada MD [address] [place], [place] [phone] documented as of this encounter Visit Diagnoses Not on filedocumented in this encounter Care Teams Aged Or Disabled Care Worker Relationship Specialty Start Date End Date Lu Estrada MD [address] [place] [address] PCP - General Family Medicine 03/27/18 documented as of this encounter
--- OUTSIDE RECORDS SUMMARY | 2024-11-21 12:45 | XMS_ITS | Encounter Summary ---
Author Organization [employer] Address [address] [facility] 7t [place] [address] Care Team Providers Care Genetics Nurse Name Role Phone Lu Estrada MD Primary Care Provider [phone] Reason for Visit * Reason Onset Date Comments Appointment 07/05/2022 Encounter Details Date Type Department Care Team ([facility] st Contact Info) Description 07/05/2022 Telephone [facility] [address] [place] [address] Raymon, Heidi [address] [place] [address] Appointment Social History Tobacco Use Types Packs/Day [...] appt. It is not currently requested in [facility] and I dont know if to request or not sure if the [employer] list is blended with Epic list. documented in this encounter Plan of Treatment Upcoming Encounters Date Type Department Care Team (Late st Contact Info) Description 12/05/2024 9:15 AM EDT Office Visit [facility] [address] [place], [place] [phone] Aziza Mckoy, OD [address] [place] [address] 12/25/2024 9:45 AM EDT Office Visit [facility] [address] [place] [address] Lu Estrada MD [address] [place] [address] documented as of this encounter Visit Diagnoses Not on filedocumented in this encounter Care Teams Genetics Nurse Relationship Specialty Start Date End Date Lu Estrada MD [address] [place] [address] PCP - General Family Medicine 03/27/18 documented as of this encounter
--- OUTSIDE RECORDS SUMMARY | 2024-11-21 12:45 | XMS_ITS | Encounter Summary ---
Author Organization [employer] Address [address] [facility] 7t [place] [address] Care Team Providers Care Deicer Inspector Pneumatic Name Role Phone Lu Estrada MD Primary Care Provider [phone] Reason for Visit * Reason Comments Med Refill Encounter Details Date Type Department Care Team ([facility] Contact Info) Description 03/09/2023 Refill [facility] [address] [place] [address] Lu Estrada MD [address] [place] [address] Social History Tobacco Use Types Packs/Day Years [...] Description 12/05/2024 9:15 AM EDT Office Visit [facility] [address] [place], [place] [phone] Aziza Mckoy, OD [address] [place] [address] 12/25/2024 9:45 AM EDT Office Visit [facility] [address] [place] [address] Lu Estrada MD [address] [place] [address] documented as of this encounter Visit Diagnoses Not on filedocumented in this encounter Additional Health Concerns Assessment Noted Time PHQ-9 Depression Total Score: 0 03/08/20 23 11:18 AM EST documented as of this encounter Care Teams Deicer Inspector Pneumatic Relationship Specialty Start Date End Date Lu Estrada MD [address] [place] [address] PCP - General Family Medicine 03/27/18 documented as of this encounter
--- OUTSIDE RECORDS SUMMARY | 2024-11-21 12:45 | XMS_ITS | Encounter Summary ---
Author Organization [employer] Address [address] [place] [address] [address] [place] [address] Care Team Providers Care Mask Layout Designer Name Role Phone Lu Estrada MD Primary Care Provider [phone] Encounter Details Date Type Department Care Team (Late Contact Info) Description 02/23/2022 Abstract [facility] [address] [place] [address] Dental, Provider, DDS Social History Tobacco Use [...] Department Care Team (Late Contact Info) Description 12/05/2024 9:15 AM EDT Office Visit [facility] [address] [place] [address] Aziza Mckoy, OD [address] [place] [address] 12/25/2024 9:45 AM EDT Office Visit [facility] [address] [place] [address] Lu Estrada MD [address] [place] [address] documented as of this encounter Procedures Procedure Name Priority Date/Time Associated Diagnosis Comments 14 O AMALGAM FILLING Routine 02/23/2022 12:00 AM EST documented in this encounter Visit Diagnoses Not on filedocumented in this encounter Care Teams Mask Layout Designer Relationship Specialty Start Date End Date Lu Estrada MD [address] [place] [address] PCP - General Family Medicine 03/27/18 documented as of this encounter
--- OUTSIDE RECORDS SUMMARY | 2024-11-21 12:45 | XMS_ITS | Encounter Summary ---
Author Organization [employer] Address [address] [facility] 7t [place] [address] Care Team Providers Care Energy Conservation Representative Name Role Phone Lu Estrada MD Primary Care Provider [phone] Reason for Visit * Reason Onset Date Comments Letter for School/Work 04/27/2023 Encounter Details Date Type Department Care Team ([facility] Contact Info) Description 04/27/2023 Telephone [facility] [address] [place] [address] Lu Estrada MD [address] [place] [address] Letter for School/Work Social History Tobacco Use [...] [facility] [address] [place] [address] TarAziza crawford, OD [address] [place] [address] 12/25/2024 9:45 AM EDT Office Visit [facility] [address] [place] [address] Lu Estrada MD [address] [place] [address] documented as of this encounter Visit Diagnoses Not on filedocumented in this encounter Additional Health Concerns Assessment Noted Time PHQ-9 Depression Total Score: 0 03/08/20 23 11:18 AM EST documented as of this encounter Care Teams Energy Conservation Representative Relationship Specialty Start Date End Date Lu Estrada MD [address] [place] [address] PCP - General Family Medicine 03/27/18 documented as of this encounter
--- OUTSIDE RECORDS SUMMARY | 2024-11-21 12:45 | XMS_ITS | Encounter Summary ---
Author Organization [employer] Address [address] [facility] 7t [place] [address] Care Team Providers Care Print Journalist Name Role Phone Lu Estrada MD Primary Care Provider [phone] Reason for Visit * Reason Comments Med Refill Encounter Details Date Type Department Care Team ([facility] st Contact Info) Description 05/01/2023 Refill [facility] MEDICINE [address] [place] [address] Lorri Eduardo, 230 [place] [address] Social History Tobacco Use Types Packs/Day Years [...] Description 12/05/2024 9:15 AM EDT Office Visit [facility] OPTOMETRY [address] [place], [place] [phone] Aziza Mckoy, OD [address] [place] [address] 12/25/2024 9:45 AM EDT Office Visit [facility] MEDICINE [address] [place] [address] Lu Estrada MD 230 [place] [address] documented as of this encounter Visit Diagnoses Not on filedocumented in this encounter Additional Health Concerns Assessment Noted Time PHQ-9 Depression Total Score: 0 03/08/20 23 11:18 AM EST documented as of this encounter Care Teams Print Journalist Relationship Specialty Start Date End Date Lu Estrada MD 230 [place] [address] PCP - General Family Medicine 03/27/18 documented as of this encounter
--- OUTSIDE RECORDS SUMMARY | 2024-11-21 12:45 | XMS_ITS | Encounter Summary ---
Author Organization [employer] Address [address] [facility] [address] 7t [place] [address] Care Team Providers Care Senior Power Scheduler Name Role Phone Lu Estrada MD Primary Care Provider [phone] Encounter Details Date Type Department Care Team ([facility] Contact Info) Description 05/29/2023 Abstract [facility] MEDICINE [address] [place], [place] [phone] Lu Estrada MD 230 [place], [place] [phone] Social History Tobacco Use Types Packs/Day Years [...] Description 12/05/2024 9:15 AM EDT Office Visit [facility] OPTOMETRY [address] [place] [address] Aziza Mckoy, OD [address] [place] [address] 12/25/2024 9:45 AM EDT Office Visit [facility] MEDICINE [address] [place] [address] Lu Estrada MD [address] [place] [address] documented as of this encounter Procedures Procedure [...] as of this encounter Care Teams Senior Power Scheduler Relationship Specialty Start Date End Date Lu Estrada MD [address] [place] [address] PCP - General Family Medicine 03/27/18 documented as of this encounter
--- OUTSIDE RECORDS SUMMARY | 2024-11-21 12:45 | XMS_ITS | Encounter Summary ---
Demographics Address [address] [facility] [address] [place] [address] Home Phone Work Phone Mobile Phone Email Address Preferred Language en Marital Status Single Zoroastrianism Affiliation Unknown Race Other Race Ethnic Group Unknown Author Organization [employer] Address [address] [facility] 7t [place] [address] Care Team Providers Care Staff Development Coordinator Name Role Phone Lu Estrada MD Primary Care Provider [phone] Encounter Details Date Type Department Care Team ([facility] st Contact Info) Description 04/30/2024 Orders Only [facility] MEDICINE 230 [place] [address] Lu Estrada MD 230 [place], [place] [phone] Abnormal CT of the abdomen (Primary Dx); [...] Description 12/05/2024 9:15 AM EDT Office Visit [facility] OPTOMETRY [address] [place] [address] Aziza Mckoy, OD 267 [place] [address] 12/25/2024 9:45 AM EDT Office Visit [facility] MEDICINE [address] [place] [address] Lu Estrada MD [address] [place] [address] documented as of this encounter Procedures Procedure Name Priority Date/Time Associated Diagnosis Comments BI MAMMOGRAM DIAGNOSTIC TOMOSYNTHESIS BILATERAL Routine 06/07/2024 10:00 AM EDT documented in this encounter Results * BI Mammogram Diagnostic Tomosynthesis Bilateral (06/07/2024 10:00 AM EDT) Anatomical Region Laterality Modality Breast Bilateral Mammography 06/07/2024 10:0 0 AM EDT Narrative 06/07/2024 11:42 AM EDT [facility] [address] [place], [place] [address] Mammography Report Signed Patient: Shruti Winters MR#: [id number] : 1985 Acct:[id number] Age/Sex: 39 / F ADM Date: 06/07/24 Loc: HO.MAMMO Attending Dr: Lu Estrada MD Ordering Physician: Lu Estrada MD Results: 1Negative Date of Service: 06/07/24 Follow Up: Mammo at 42 or e arlier if clinically needed Procedure(s): MM tomosynthesis diagnostic BI Accession Number(s): [id number] cc: Lu Estrada MD EXAMINATION: MM DIAGNOSTIC [...] 06/07/24 1139 DD/ 1000 TD/TT: 06/07/24 1018 Merchandise Pickup/Receiving Associate: Procedure Note Donotuseinterpreter, Image - 06/07/2024 [facility]'s [address] [place] [address] Mammography Report Signed Patient: Ajay Winters#: [id number] : 1985Acct:[id number] Age/Sex: 39 / FADM Date: 06/07/24 Loc: HO.MAMMO Attending Dr: Lu Estrada MD Ordering Physician: Lu Estrada MDResults: 1Negative Date of Service: 06/07/24Follow Up: Mammo at 42 or e arlier if clinically needed Procedure(s): MM tomosynthesis diagnostic BI Accession Number(s): [id number] cc: Lu Estrada MD EXAMINATION: MM DIAGNOSTIC [...] 06/07/24 1139 DD/ 1000 TD/TT: 06/07/24 1018 Merchandise Pickup/Receiving Associate: Lu Estrada MD IMG BI PROCEDURES Final [...] documented as of this encounter Care Teams Staff Development Coordinator Relationship Specialty Start Date End Date Lu Estrada MD [address] [place] [address] PCP - General Family Medicine 03/27/18 documented as of this encounter
--- OUTSIDE RECORDS SUMMARY | 2024-11-21 12:45 | XMS_ITS | Encounter Summary ---
Author Organization [employer] Address [address] [place] [address] 7 [place] [address] Care Team Providers Care Funeral Service Manager Name Role Phone Lu Estrada MD Primary Care Provider [phone] Reason for Visit * Reason Comments Med Refill Encounter Details Date Type Department Care Team (Late Contact Info) Description 04/19/[address] [facility] MEDICINE 230 [place] [address] Leatha Chong MD 230 [place] [address] Primary hypertension (Primary Dx) Social History Tobacco [...] Office Visit [facility] OPTOMETRY [address] [place] [address] Aziza Mckoy, OD 267 [place] [address] 12/25/2024 9:45 AM EDT Office Visit [facility] MEDICINE 230 [place] [address] Lu Estrada MD 230 [place] [address] documented as of this encounter Visit Diagnoses Diagnosis Primary hypertension- Primary Unspecified essential hypertension documented in this encounter Care Teams Funeral Service Manager Relationship Specialty Start Date End Date Lu Estrada MD [address] [place] [address] PCP - General Family Medicine 03/27/18 documented as of this encounter
--- OUTSIDE RECORDS SUMMARY | 2024-11-21 12:45 | XMS_ITS | Encounter Summary ---
Author Organization [employer] Address [address] [place] [address] 7t [place] [address] Care Team Providers Care Eight Arm Operator Name Role Phone Lu Estrada MD Primary Care Provider [phone] Reason for Visit * Reason Comments Med Refill Encounter Details Date Type Department Care Team (Late Contact Info) Description 06/08/2022 Refill [facility] MEDICINE 230 [place] [address] Name, MD Danny 230 [place] [address] Social History Tobacco Use Types Packs/Day Years [...] Description 12/05/2024 9:15 AM EDT Office Visit [facility] OPTOMETRY [address] [place] [address] Aziza Mckoy, OD 267 [place] [address] 12/25/2024 9:45 AM EDT Office Visit [facility] MEDICINE 230 [place] [address] Lu Estrada MD 230 [place] [address] documented as of this encounter Visit Diagnoses Not on filedocumented in this encounter Care Teams Eight Arm Operator Relationship Specialty Start Date End Date Lu Estrada MD [address] [place] [address] PCP - General Family Medicine 03/27/18 documented as of this encounter
--- OUTSIDE RECORDS SUMMARY | 2024-11-21 12:45 | XMS_ITS | Encounter Summary ---
Author Organization [employer] Address [address] [place] [address] 7 [place] [address] Care Team Providers Care Drafter Name Role Phone Lu Estrada MD Primary Care Provider [phone] Encounter Details Date Type Department Care Team (Latest Contact Info) Description 07/08/2020 Abstract [facility] CONVERSIONS Dental, Provider, DDS Social History [...] Description 12/05/2024 9:15 AM EDT Office Visit [facility] OPTOMETRY [address] [place] [address] Aziza Mckoy, MIN 267 [place] [address] 12/25/2024 9:45 AM EDT Office Visit [facility] MEDICINE 230 [place] [address] Lu Estrada MD 230 [place] [address] documented as of this encounter Visit Diagnoses Not on filedocumented in this encounter Care Teams Drafter Relationship Specialty Start Date End Date Lu Estrada MD 230 [place] [address] PCP - General Family Medicine 03/27/18 documented as of this encounter
--- OUTSIDE RECORDS SUMMARY | 2024-11-21 12:45 | XMS_ITS | Encounter Summary ---
Demographics Address [address] [facility] [address] [place] [address] Home Phone Work Phone Mobile Phone Email Address Preferred Language en Marital Status Single Shinto Affiliation Unknown Race Other Race Ethnic Group Unknown Author Organization [employer] Address [address] [facility] [address] 7t [place] [address] Care Team Providers Care Linking Machine Operator Name Role Phone Lu Estrada MD Primary Care Provider [phone] Reason for Visit * Reason Comments Med Refill Encounter Details Date Type Department Care Team ([facility] Contact Info) Description 03/09/2023 Refill [facility] PEDS [address] [place] [address] Vandana Black, ANP 230 [place] [address] Social History Tobacco Use Types Packs/Day Years [...] Description 12/05/2024 9:15 AM EDT Office Visit [facility] OPTOMETRY [address] [place], [place] [phone] Aziza Mckoy, OD 267 [place] [address] 12/25/2024 9:45 AM EDT Office Visit [facility] MEDICINE 230 [place] [address] Lu Estrada MD 230 [place] [address] documented as of this encounter Visit Diagnoses Not on filedocumented in this encounter Additional Health Concerns Assessment Noted Time PHQ-9 Depression Total Score: 0 03/08/20 23 11:18 AM EST documented as of this encounter Care Teams Linking Machine Operator Relationship Specialty Start Date End Date Lu Estrada MD 230 [place] [address] PCP - General Family Medicine 03/27/18 documented as of this encounter
--- OUTSIDE RECORDS SUMMARY | 2024-11-21 12:45 | XMS_ITS | Clinical Summary ---
Author Organization [employer] Address [address] [place] [address] 7t [place] [address] Care Team Providers Care Outpatient Surgery Rn Name Role Phone Lu Estrada MD Primary Care Provider [phone] Allergies No known active allergies Medications hydrocortisone [...] within 12 hours or as directed by . 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; advised to contact her surgeon or EXCAVATING CONTRACTOR Atypical chest pain 07/13/2022 Enlarged tonsils 07/13/2022 [...] Plan (04/25/2022 4:36 PM EST): -followed by [facility] GI continue famotidine -continue pantoprazole -avoid NSAIDS IBS (irritable bowel syndrome) 04/21/2022 Assessment & Plan (01/28/2024 4:45 PM EST): - followed by [facility] GI last seen in May 2023 - s/p EGD and colonoscopy -GI prescribed dicyclomine, simethicone, and Creon, but she is not taking it; recommended to discuss with GI specialist before discontinuing it -work on stress reduction Assessment & Plan (05/05/2023 6:42 AM EST): - followed by [facility] GI last seen in Nov [...] (04/29/2022 6:27 PM EST): - followed by [facility] GI last seen on 03/24/22 [...] 4:48 PM EST): - previously seen by [facility] Clinician. - patient is not interested in behavioral health service -Pt was recommended to improve sleepy hygien and exercise during the day instead of taking medications Assessment & Plan (04/25/2022 4:35 PM EST): Was seen by [facility] Clinician. -Will check status of f/u. -Pt was recommended to improve sleepy hygien and exercise during the day instead of taking medications Dislocation of acromioclavicular joint 7 Migraine 05/04/2016 Assessment & Plan (04/28/2024 4:12 PM EST): -seen by [facility] neurologist in Apr 2019 -[facility] by [facility] [...] Plan (01/28/2024 4:50 PM EST): -seen by [facility] neurologist in Apr 2019 -seen by [facility] [...] Plan (05/05/2023 6:51 AM EST): -seen by [facility] neurologist in Apr 2019 -seen by [facility] [...] AM EDT): -last exacerbation requiring prednisone in 2017 -continue [...] Encounters Date Type Department Care Team Description 09/11/2024 Telephone [facility] ADULT DENTAL [address] [place] [address] Mc nEnisaris 08/29/2024 Orders Only GENERIC EXTERNAL DATA DEPARTMENT Provider, Generic External Data from Last 3 Months Immunizations Immunization Administration Dates Next Due DTaP 11/04/2011, 2,05/31/1991,05/09,02/05/1988,1987 Hep A, Adult 12/26/2017 Hep B, Adolescent or Pediatric 11/16/1999,1998 Hep B, adult 12/26/2017 Hib ([facility]) 05/09/1990 IPV 01/26/1988 Influenza injectable quadriv alent [...] 66 04/29/2024 10:43 AM EST Temperature 36 C (96.8 F) 04/29/2024 10:43 AM EST Respiratory Rate 18 [...] Description 12/05/2024 9:15 AM EDT Office Visit [facility] OPTOMETRY [address] [place], [place] [phone] Aziza Mckoy, OD 267 [place] [address] 12/25/2024 9:45 AM EDT Office Visit [facility] MEDICINE [address] [place] [address] Lu Estrada MD 230 [place] [address] Health Maintenance Due Date Last Done Comments Disability Screening 1985 Family Planning (PISQ) 2002 HPV Vaccines (1 - 3-dose series) 2002 Dental Oral Exam 03/10/2024 09/08/2023, 03/02/2022 Dental X-Ray: Bitewings 09/08/2024 09/08/2023, 03/02 Dental Prophylaxis 09/10/2024 03/11/2024, 0 09/08/2023, 09/22/2022, Additional history exists Influenza Vaccine (#1) 2024 , 03/08/2023, 04/25/2022, Additional history exists Alcohol/Substance Use Screening 01/21/2025 [...] Years) and At-Risk Patients (6 to 49) Years Completed 08/23/2022, 10/01/2008, 10/01/2008 COVID-19 Vaccine Completed 01/22/2024, , 05/25/2021, Additional history exists Meningococcal B Vaccine Aged Out No l onger eligible based on patient's age to complete [...] Procedure Name Priority Date/Time Associated Diagnosis Comments GROSS AND MICROSCOPIC LEVEL 3 Routine 08/29/2024 8:26 AM EDT PROPHYLAXIS - ADULT Routine 03/11/2024 2 :30 [...] Recently Relevant to Health Maintenance Results * Gross and Microscopic Level 3 (08/29/2024 8:26 AM EDT) 08/29/2024 8:26 AM EDT 08/29/2024 10:01 AM EDT [facility] LABS - 08/30/2024 4:10 PM EDT ----- ------- Name: Shruti Winters Age/Sex: 39/F : 1985 Unit#: [id number] Attend Dr: Hollie Stauffer MD Re08/29/24 Status: [facility] Location: [facility] Disch: ----- ------- SPEC : [id number] RECD: 08/29/24 STATUS: ROMI RIVERA NUM: [id number] MEÑO: 08/29/[address] [facility] [address]: Hollie Stauffer MD ENTERED: 08/29/24 SP TYPE: Surgical OTHR DR: Lu Estrada MD ORDERED: Gross Micro L3 Diagnosis Soft tissue, right dorsal wrist, excision: Ganglion cyst. Clinical History Ganglion, right wrist Microscopic Description Microscopic sections reviewed. Material Received Right dorsal wrist ganglion Gross Description Received in formalin labeled right dorsal wrist ganglion is a 2.4 x 2.0 x 1.3 cm intact smooth and shaggy, morton-pink cystic mass. The margins are inked and the specimen is sectioned to reveal a thin-walled cyst containing orange-red mucogelatinous material. Director Of Safety And Security sections are submitted in a cassette labeled A1. CEDS IHC S/NG Disclaimer NOTE: Unless otherwise stated, all tissue is formalin-fixed and paraffin-embedded. Some or all of the immunohistochemical tests reported herein may have been developed and their performance characteristics determined by [facility]. They have not been cleared or approved by the U.S. Food and Drug Administration (FDA). However, the FDA has determined that such clearance or approval is not necessary. This laboratory is certified under the Clinical Laboratory Improvement Amendments of 1988 (CLIA) as qualified to perform high complexity clinical laboratory testing. Copies To: Hollie Stauffer MD [facility] [address] [place] [address] Dr [address] [place] [address] CONTINUED ON NEXT PAGE ----- ------- Name: Shruti Winters Age/Sex: 39/F : 1985 Unit#: [id number] Attend Dr: Hollie Stauffer MD Re08/29/24 Status: [facility] Location: [facility] Disch: ----- ------- SPEC : [id number] RECD: 08/29/24-1000 STATUS: ROMI RIVERA NUM: [id number] MEÑO: 08/29/[address] [facility] [address]: Hollie Stauffer MD ENTERED: 08/29/24-1020 SP TYPE: Surgical OTHR DR: Lu Estrada MD ORDERED: Gross Micro L3 Copies To: (Continued) Lu Estrada MD [address] [address] ----- ------- Signed (signature on file) Ava Aquino MD 08/30/24 [id number] ----- ------- END OF REPORT us Generic External Data Provider LAB CYTOLOGY ORDBrendan MICHAELS Final Result Performing Organization Address [facility] Co de Phone Number [facility] [address] [place] [address] [phone] * (ABNORMAL) Lipid Panel with Reflex to Direct LDL (01/22/2024 3:20 PM EDT) Triglycerides 88 <150 mg/dL [facility] Comment:Desirable Triglyceri de: less than 150 mg/dLBorderline High Triglyceride 150-199 mg/dLHigh Triglyceride: 200-499 mg/dLVery High Triglyceride: greater than or equal to 5OO mg/dL Cholesterol 183 <200 mg/dL [facility] Comment:Desirable Cholestero l: less than 200 mg/dLBorderline High Cholesterol: 200-239 mg/dLHigh Cholesterol: greater than 239 mg/dL LDL Cholesterol Calculated 126(H) <100 mg/dL [facility] Comment:Desirable LDL: less than 100 mg/dLNear Optimal/Above Optimal LDL: 110- 129 mg/dLBorderline High LDL: 130-159 mg/dLHigh LDL: 160-189 mg/dLVery High LDL: greater than or equal to 190 mg/dL HDL Cholesterol 40(L) >40 mg/dL [facility] Comment:Desirable HDL: great er than 40 mg/dL Note: This HDL assay may give artificially low results in patients with liver disease. Blood 01/22/2024 3:20 PM EDT 01/22/2024 4:05 PM EDT us Lu Estrada MD LAB BLOOD ORDERABLES Final Resul t Performing Organization Address [facility]/ZIP Co de Phone Number [facility] [address] [place] [address] [phone] ThinPrep Imaging Pap and HPV mRNA E6/E7 with Reflex to HPV 16,18/45 (12/05/2023 12:00 AM EDT) HPV 16 RNA [facility] HPV 18/45 RNA [facility] HPV nRNA E6/E7 Not Detected Not Detected [facility] Comment:Methodology: Transcr iption-Mediated AmplificationThis assay detects E6/E7 viral messenger RNA (mRNA) from 14high-risk HPV types (16,18,31,33,35,39,45,51,52,56,58,59,66,68).Cervical sources are required for HPV testing.If a vaginal source from a patient who has had atotal hysterectomy with removal of cervix wassubmitted, please contact the testing laboratoryfor alternative testing options.For additional information, please refer tohttp://education.Popularo/faq/KUI636v3(This link if provided for information/educational purposes only.)THIS TEST WAS PERFORMED AT:[employer] [address] [id number] MILLS MD SOURCE: SEE NOTE [facility] Comment:None given Report Status: [facility] Clinical Information: SEE NOTE [facility] Comment:None given LMP: SEE NOTE [facility] Comment:NONE GIVEN Prev. PAP: SEE NOTE [facility] Comment:NONE GIVEN Prev. BX: SEE NOTE [facility] Comment:NONE GIVEN Statement Of Adequacy: SEE NOTE [facility] Comment:Satisfactory for tahmina luation.Endocervical/transformation zone componentpresent. General Categorization: [facility] Interpretation/Result: SEE NOTE [facility] Comment:Cytology Results: Ne gative for intraepitheliallesion or malignancy. Cytology Comment SEE NOTE [facility] Comment:This Pap test has be en evaluated with computerassisted technology. Hair Tinter: SEE NOTE [facility] Comment:[place], CT(ASCP)CT scre ening location: [address] [address] Review Hair Tinter: [facility] Pathologist [facility] PAP Infection [facility] See Note SEE NOTE [facility] Comment:EXPLANATORY NOTE:The Pap is a screening test for cervical cancer. It isnot a diagnostic test and is subject to false negativeand false positive results. It is most reliable when asatisfactory sample, regularly obtained, is submittedwith relevant clinical findings and history, and whenthe Pap result is evaluated along with historic andcurrent clinical information. 12/05/2023 12/05/2023 Narrative [facility] - 12/11/2023 1:12 PM EDT SEE SCANNED RESULTS IN EMR us Generic External Data Provider LAB PATHOLOGY ORD ERABLES Final Result Performing Organization Address City/[facility]/ZIP Co de Phone Number [facility] [address] [place] [address] [phone] * HEPATITIS C AB W/REFL TO HCV RNA, QN, PCR (03/16/2020 4:32 PM EST) HEPATITIS C ANTIBODY NON-REACT CORA NON-REACT [facility] INDEX 0.02 <1.00 [facility] Comment: HCV antibody was non-reactive. There is no laboratory evidence of HCV infection. In most cases, no further action is required. However, if recent HCV exposure is suspected, a test for HCV RNA (test code 51014) is suggested. For additional information please refer to http://education.Popularo/faq/UQR02g3 (This link is being provided for informational/ educational purposes only.) 03/16/2020 4:32 PM EST us Lu Estrada MD HISTORICAL/NON ORDERABLE LABS Fi nal Result [facility] [address] * HIV 1/2 ANTIGEN/ANTIBODY,FOURTH GENERATION W/RFL (03/16/2020 4:32 PM EST) HIV-1/2 ANTIGEN AND ANTIBODIES, 4TH GENERATION W/ REFLEX NON-REACT [facility]A NON-REACT [facility] Comment: HIV-1 antigen and HIV-1/HIV-2 antibodies were not detected. There is no laboratory evidence of HIV infection. PLEASE NOTE: This information has been disclosed to you from records whose confidentiality may be protected by state law. If your state requires such protection, then the state law prohibits you from making any further disclosure of the information without the specific written consent of the person to whom it pertains, or as otherwise permitted by law. A general authorization for the release of medical or other information is NOT sufficient for this purpose. For additional information please refer to http://education.Popularo/faq/RFZ989 (This link is being provided for informational/ educational purposes only.) The performance of this assay has not been clinically validated in patients less than 2 years old. 03/16/2020 4:32 PM EST us Lu Estrada MD LAB BLOOD ORDERABLES Final Resul t [facility] [address] from Last 3 Months or Most Recently Relevant to Health Maintenance [place] [address] [place] [address] C[address] DENTAL-[facility] MEDICAID STAND ADULT Care Teams Outpatient Surgery Rn Relationship Specialty Start Date End Date Lu Estrada MD [address] [place] [phone] PCP - General Family Medicine 03/27/18
--- OUTSIDE RECORDS SUMMARY | 2024-11-21 12:45 | XMS_ITS | Encounter Summary ---
Author Organization [employer] Address [address] [place] [address] 7t [place] [address] Care Team Providers Care Spoke Maker Name Role Phone Lu Estrada MD Primary Care Provider [phone] Encounter Details Date Type Department Care Team ([facility] Contact Info) Description 10/17/2022 Abstract [facility] ADULT DENTAL [address] [place] [address] Raymon Heidi [address] [place] [address] Social History Tobacco Use Types Packs/Day Years [...] Upcoming Encounters Date Type Department Care Team ([facility] Contact Info) Description 12/05/2024 9:15 AM EDT Office Visit [facility] OPTOMETRY [address] [place], [place] [phone] Aziza Mckoy, OD [address] [place] [address] 12/25/2024 9:45 AM EDT Office Visit [facility] MEDICINE [address] [place] [address] Lu Estrada MD [address] [place] [address] documented as of this encounter Visit Diagnoses Not on filedocumented in this encounter Care Teams Spoke Maker Relationship Specialty Start Date End Date Lu Estrada MD [address] [place] [address] PCP - General Family Medicine 03/27/18 documented as of this encounter
--- OUTSIDE RECORDS SUMMARY | 2024-11-21 12:45 | XMS_ITS | Encounter Summary ---
Demographics Address [address] [facility] [address] [place] [address] Home Phone Work Phone Mobile Phone Email Address Preferred Language en Marital Status Single Sabianism Affiliation Unknown Race Other Race Ethnic Group Unknown Author Organization [employer] Address [address] [facility] 7t [place] [address] Care Team Providers Care Synoptic Meteorologist Name Role Phone Lu Estrada MD Primary Care Provider [phone] Encounter Details Date Type Department Care Team ([facility] Contact Info) Description 03/28/2024 Orders Only [facility] CHC MED & PEDS [address] [place] [address] Elliot Antunez MD [address] [place] [address] Social History Tobacco Use Types Packs/Day Years [...] 9:15 AM EDT Office Visit [facility] OPTOMETRY [address] [place] [address] Aziza Mckoy, OD [address] [place] [address] 12/25/2024 9:45 AM EDT Office Visit [facility] MEDICINE [address] [place] [address] Lu Estrada MD [address] [place] [address] documented as of this encounter Visit Diagnoses Not on filedocumented in this encounter Additional Health Concerns Assessment Noted Time PHQ-9 Depression Total Score: 5 01/22/20 24 3:06 PM EDT documented as of this encounter Care Teams Synoptic Meteorologist Relationship Specialty Start Date End Date Lu Estrada MD [address] [place] [address] PCP - General Family Medicine 03/27/18 documented as of this encounter
--- OUTSIDE RECORDS SUMMARY | 2024-11-21 12:45 | XMS_ITS | Encounter Summary ---
Author Organization [employer] Address [address] [facility] 7t [place] [address] Care Team Providers Care Supervisor Drying Name Role Phone Lu Estrada MD Primary Care Provider [phone] Reason for Visit * Reason Comments Med Refill Encounter Details Date Type Department Care Team ([facility] Contact Info) Description 04/22/2022 Refill [facility] CHC MED & PEDS [address] [place] [address] Vandana Black, ANP [address] [place] [address] Social History Tobacco Use Types Packs/Day Years [...] Encounters Date Type Department Care Team ([facility] Contact Info) Description 12/05/2024 9:15 AM EDT Office Visit [facility] OPTOMETRY [address] [place] [address] Lorenayvette Aziza, OD [address] [place] [address] 12/25/2024 9:45 AM EDT Office Visit [facility] MEDICINE [address] [place] [address] Lu Estrada MD [address] [place] [address] documented as of this encounter Visit Diagnoses Not on filedocumented in this encounter Care Teams Supervisor Drying Relationship Specialty Start Date End Date uL Estrada MD [address] [place] [address] PCP - General Family Medicine 03/27/18 documented as of this encounter
--- OUTSIDE RECORDS SUMMARY | 2024-11-21 12:45 | XMS_ITS | Encounter Summary ---
Author Organization [employer] Address [address] [place] [address] 7t [place] [address] Care Team Providers Care Gunstock Repairer Name Role Phone Lu Estrada MD Primary Care Provider [phone] Encounter Details Date Type Department Care Team (Latest Contact Info) Description 01/01/2019 Abstract [facility] CONVERSIONS Dental, Provider, DDS Social History [...] Description 12/05/2024 9:15 AM EDT Office Visit [facility] OPTOMETRY [address] [place] [address] Aziza Mckoy OD [address] [place] [address] 12/25/2024 9:45 AM EDT Office Visit [facility] MEDICINE [address] [place] [address] Lu Estrada MD [address] [place] [address] documented as of this encounter Visit Diagnoses Not on filedocumented in this encounter Care Teams Gunstock Repairer Relationship Specialty Start Date End Date Lu Estrada MD [address] [place] [id number] PCP - General Family Medicine 03/27/18 documented as of this encounter
--- OUTSIDE RECORDS SUMMARY | 2024-11-21 12:45 | XMS_ITS | Encounter Summary ---
Demographics Address [address] [facility] [address] [place] [address] Home Phone Work Phone Mobile Phone Email Address Preferred Language en Marital Status Single Jew Affiliation Unknown Race Other Race Ethnic Group Unknown Author Organization [employer] Address [address] [facility] 7t [place] [address] Care Team Providers Care Associate Professor Physician Name Role Phone Lu Estrada MD Primary Care Provider [phone] Reason for Visit * Reason Comments Med Refill Encounter Details Date Type Department Care Team ([facility] st Contact Info) Description 06/18/2022 Refill [facility] CHC MED & PEDS [address] [place] [address] Vandana Black, ANP 230 [place] [address] Social History Tobacco Use Types Packs/Day Years [...] Visit [facility] OPTOMETRY [address] [place] [address] TarAziza crawford, OD [address] [place] [address] 12/25/2024 9:45 AM EDT Office Visit [facility] MEDICINE 230 [place] [address] Lu Estrada MD 230 [place] [address] documented as of this encounter Visit Diagnoses Not on filedocumented in this encounter Care Teams Associate Professor Physician Relationship Specialty Start Date End Date Lu Estrada MD [address] [place] [phone] PCP - General Family Medicine 03/27/18 documented as of this encounter
== END 2024-11-21 12:01 | disposition home or self-care (01) ==
LOC: HO.HWS 11:24
PROVIDERS: PCP Family Medicine; Visit Provider Obstetrics & Gynecology
DX: R10.2 Pelvic and perineal pain (principal); R31.29 Other microscopic hematuria
CPT/HCPCS: 99213

== ENCOUNTER 2024-11-24 20:46 | Emergency (ER) | payer MEDICAID, SELFPAY ==
--- NOTE | ~2024-11-24 | CT_ITS ---
CLINICAL HISTORY: left flank pain CT abdomen and pelvis without contrast Comparison: CT/SR - CT ABDOMEN PELVIS W IV CON - 04/30/24 04:19 EST Findings: The lung bases are clear. The liver, gallbladder, pancreas, spleen, adrenal glands, and kidneys are unremarkable. There is no urolithiasis or hydronephrosis. There are several phleboliths in the pelvis. The appendix is normal. The remainder of the gastrointestinal tract is unremarkable. There are no enlarged lymph nodes. The aorta is normal in diameter. Uterus and adnexa are grossly unremarkable. The bladder is unremarkable. There is no fracture or suspicious lytic or sclerotic lesion. IMPRESSION: No acute abnormality in the abdomen or pelvis. This document has been electronically signed by: Keaton Gaxiola MD on 11/25/2024 04:50:07
--- NOTE | ~2024-11-24 | XR_ITS ---
CLINICAL HISTORY: cough, lung pain 2 view chest x-ray Comparison: CR/SR - XR CHEST 2 VIEWS - 03/22/22 16:16 EST Findings: Heart size is normal. No consolidation, pleural effusion or pneumothorax. No acute fracture. IMPRESSION: 1. No acute findings. This document has been electronically signed by: Mary Bee MD on 11/24/2024 22:10:31
[2024-11-24 20:48] VITALS: BP 160/91; PULSE 84; RESP 18; TEMP 37; O2SAT 98; BMI 29.5
--- NOTE | 2024-11-24 20:49 | ED.GENADULT ---
HPI - General Adult General Chief complaint: Dyspnea Stated complaint: pain left side of lungs during cough Time Seen by Provider: 11/25/24 00:04 Source: patient Mode of arrival: ambulatory Limitations: no limitations History of Present Illness ED Provider: Dr. Branch HPI narrative: This is a 39-year-old female presented hospital today for left back pain that radiates to the left upper quadrant. This is associated with on and off chills. Patient is also having some headaches and dry cough. patient is also complaining of some nasal congestion as well. Patient stated that she had laparoscopic surgery for a right ovarian cysts removal in the past. However since then around her surgical scar it does appear to be tender. Denies dysuria. Related Data Home Medications ?Medication ?Instructions ?Recorded ?Confirmed albuterol sulfate 90 mcg/actuation 1 inh inhalation QID 01/15/20 07/19/24 aerosol inhaler (Proventil HFA) xghznbw-yyubirmdanonk-snvuthef 250 1 tab PO Q4-6H PRN Headache 01/15/20 07/19/24 mg-250 mg-65 mg tablet (Excedrin Migraine) loratadine 10 mg tablet (Allergy 10 mg PO DAILY 01/15/20 07/19/24 Relief (loratadine)) montelukast 10 mg tablet 10 mg PO BEDTIME 01/15/20 07/19/24 (Singulair) cholecalciferol (vitamin D3) 50 50 mcg PO DAILY 03/16/22 07/19/24 mcg (2,000 unit) capsule (Vitamin D3) lisinopril 10 mg tablet 10 mg PO DAILY 03/16/22 07/19/24 Previous Rx's ?Medication ?Instructions ?Recorded wxpqqkkwyv-niwbqgvecbhkw-xcrmkvnh 1 cap PO Q8H PRN pain #3 caps 08/09/21 50 mg-300 mg-40 mg capsule (Fioricet) acetaminophen 500 mg tablet 1,000 mg (2 x 500 mg) PO QID PRN 08/25/22 pain #30 tabs propranolol 60 mg capsule,24 60 mg PO BEDTIME #90 caps 12/19/22 hr,extended release polyethylene glycol 3350 17 17 g PO DAILY #510 grams 06/02/23 gram/dose oral powder (Miralax) cyclobenzaprine 10 mg tablet 10 mg PO TID #10 tabs 01/13/24 naproxen 500 mg tablet (Naprosyn) 500 mg PO BID #20 tabs 01/13/24 ibuprofen 600 mg tablet 600 mg PO Q6H PRN fever or pain 02/19/24 #30 tabs acetaminophen 500 mg tablet 500 mg PO Q6H PRN fever or pain 04/30/24 (Tylenol Extra Strength) #14 tabs cyclobenzaprine 5 mg tablet 5 mg PO Q8H PRN pain (scale score 04/30/24 7-10) 5 days #14 tabs lidocaine 5 % topical patch 1 patch topical DAILY PRN pain #30 04/30/24 (Lidoderm) ea methocarbamol 500 mg tablet 1,000 mg (2 x 500 mg) PO Q8H PRN 05/09/24 pain, moderate #24 tabs loratadine 10 mg tablet 10 mg PO DAILY PRN allergic 06/18/24 (Allerclear) symptoms #30 tabs ondansetron 4 mg disintegrating 4 mg PO Q8H #10 tabs 11/07/24 tablet pantoprazole 40 mg tablet,delayed 40 mg PO BID 90 days #180 tabs 11/11/24 release methocarbamol 1,000 mg tablet 1,000 mg PO TID #20 tabs 11/25/24 omeprazole 20 mg capsule,delayed 20 mg PO DAILY 14 days #14 caps 11/25/24 release ondansetron 4 mg disintegrating 4 mg PO Q8H PRN nausea and 11/25/24 tablet vomiting 3 days #12 tabs Allergies Allergy/AdvReac Type Severity Reaction Status Date / Time No Known Allergies (No Known Allergy Verified 11/24/24 20:52 Allergies*) Review of Systems Review of Systems: Pertinent review of systems as mentioned in HPI. All other system otherwise negative. [facility] Past Medical History [facility] Narrative: Medical history as mentioned in HPI Medical History Simple ovarian cyst Hypertension IBS (irritable bowel syndrome) Fibromyalgia Asthma Migraines Surgical History Hx of colonoscopy History of esophagogastroduodenoscopy (EGD) History of loop electrical excision procedure (LEEP) Hx of tubal ligation Family History Family History Mother Diabetes HTN (hypertension) Asthma Brother Asthma Social History Social History Household Members: Children Are you a primary direct care staffer to a significant other at home: No Do you presently have visiting nurse or other home services: No Alcohol intake: never Comment: counts correct Patient Tobacco Use Status: Never used Tobacco Smoked in Last 30 Days: No Use of substances other than those prescribed or required for medical reasons: Yes Substance Use Type: Marijuana Advance Directives: Yes Advance Directives on File: Yes Advance Directives Date on File: 08/29/24 Patient : No Current occupational status: employed 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 Sexual orientation: Straight/Heterosexual Gender identity: Female Physical Exam ED Exam Exam: General: Pleasant, no distress, interacting appropriately Head: Normacephalic, atraumatic ENT: oral mucosa moist, neck supple, no tracheal deviation Cardiovascular: regular rate, regular rhythm, no murmurs, rubbing, gallops Respiratory: CTAB, no wheeze, rales, rhonchi Gastrointestinal: Soft, non distended, left-sided flank pain on exam Extremities: No limb pain or swelling, no calf tenderness Neurological: Awake and alert, no facial droop noted Skin: Warm and dry Psychiatric: Appropriate mood and thoughts Vital Signs: Vital Signs - 24 hr 11/24/24 20:48 11/24/24 22:47 11/25/24 01:03 Temperature 98.6 F 97.8 F 97.8 F Pulse Rate 84 62 67 Respiratory Rate 18 14 12 Blood Pressure 160/91 H 128/96 H 125/77 Pulse Oximetry 98 99 99 Oxygen Delivery Method Room Air Room Air Room Air 11/25/24 02:16 11/25/24 06:33 Temperature 98.0 F 97.9 F Pulse Rate 64 60 Respiratory Rate 23 H 13 Blood Pressure 113/68 114/77 Pulse Oximetry 97 98 Oxygen Delivery Method Room Air Room Air BMI result Body Mass Index 29.5 Course Course Course Narrative: This is a Rapid Medical Examination (RME) performed by Violet Chakraborty PA-C in triage. Full HPI, ROS, assessment and treatment plan per primary provider in the Main ED. Hx: 39 yo F here for eval of dry cough, left lung pain, SOB, chills, and headache x2 weeks. no known sick contacts. Plan: viral swabs, cxr, labs, ekg, trop Medications Administered Discontinued Medications Generic Name Dose Route Start Last Admin Trade Name Skylerq PRN Reason Stop Dose Admin Acetaminophen 975 mg 11/25/24 00:22 11/25/24 00:59 Acetaminophen 325 Mg Tablet PO 11/25/24 00:23 975 mg ONCE ONE Administration Al Hydroxide/Mg Hydroxide 30 ml 11/25/24 00:22 11/25/24 01:00 Magnesium Hydrox/Alum Hydrox 30 Ml Oral.Susp PO 11/25/24 00:23 30 ml ONCE ONE Administration Sodium Chloride 1,000 mls @ 999 mls/hr 11/25/24 02:45 11/25/24 03:05 Ns IV 11/25/24 03:45 999 mls/hr .Q1H1M SURESH Administration Ketorolac Tromethamine 15 mg 11/25/24 02:38 11/25/24 03:04 Ketorolac Tromethamine 15 Mg/Ml Vial IVPUSH 11/25/24 02:39 15 mg ONCE ONE Administration Lidocaine HCl 15 ml 11/25/24 00:22 11/25/24 01:00 Lidocaine Hcl Viscous 2 % 15 Ml Solution MUCOUS MEM 11/25/24 00:23 15 ml ONCE ONE Administration Potassium Bicarbonate 25 meq 11/25/24 00:22 11/25/24 01:00 Potassium Bicarbonate/Cit Ac 25 Meq Tablet.Eff PO 11/25/24 00:23 25 meq ONCE ONE Administration Tamsulosin HCl 0.4 mg 11/25/24 02:38 11/25/24 03:05 Tamsulosin Hcl 0.4 Mg Capsule PO 11/25/24 02:39 0.4 mg ONCE ONE Administration Medical Decision Making Medical Decision Making [facility] Narrative: 39-year-old female presented hospital today for evaluation of left-sided flank pain. History of right ovarian cyst removal in the past. Suspect her fever and chills may be secondary to an upper respiratory infection patient does have nasal congestion on exam. Patient's CBC did not show any sign of leukocytosis, patient's chemistry did show some hypokalemia at 3.2. Plan to replete her potassium level. Patient's UA did show some signs of hematuria. We will plan to obtain a CT abdomen and pelvis to evaluate for any signs of nephrolithiasis. Patient's troponin is negative. EKG no sign of STEMI. I did give patient some Tylenol, GI cocktail with some alleviation of her pain. Patient will be signed out to oncoming provider pending CT imaging. 7:06 AM 11/25/2024 (Dr. Erin Lala, D.O.) patient feeling improved after medications. Her CT does not show evidence of kidney stone or other acute intra-abdominal process. She is having her menstrual cycle which is likely the reason why she is having hematuria though she admits to me that she has had it before even without her periods. We discussed importance of follow up with her primary care as well as strict return precautions to the emergency department. She will be discharged home to follow up as an outpatient. Discharged in stable condition. Differential Diagnosis Differential Diagnoses: The differential diagnosis associated with the presentation includes Nephrolithiasis, left flank pain, gastritis, gastroenteritis Lab Data MDM Lab Attestation statement: I reviewed the patient's lab results. 11/24/24 21:05 11/24/24 21:05 Labs: Lab Results 11/24/24 11/25/24 Range/Units 21:05 02:17 WBC 5.8 (4.8-10.8) X10*3/uL RBC 4.26 (4.20-5.50) X10*6/uL Hgb 12.5 (12.0-16.0) g/dl Hct 36.4 L (37.0-47.0) % MCV 85.4 (80.0-98.0) fL MCH 29.3 (27.0-33.0) pg MCHC 34.3 (31.0-35.0) g/dl RDW 14.3 (11.0-16.0) % Plt Count 217 (160-400) X10*3/uL MPV 10.8 (9.4-12.3) fL Immature Gran % (Auto) 0.2 (0.0-0.4) % Neut % (Auto) 34.4 L (45-73) % Lymph % (Auto) 56.3 H (20-40) % [place] % (Auto) 6.9 (2-11) % Eos % (Auto) 1.7 (0-4) % Baso % (Auto) 0.5 (0-2) % Lymph # (Auto) 3.3 (1.2-4.9) X10*3/uL [place] # (Auto) 0.4 (0.1-1.2) X10*3/uL Eos # (Auto) 0.1 (0.0-0.4) X10*3/uL Baso # (Auto) 0.0 (0.0-0.2) X10*3/uL Abs Immat Gran (auto) 0.01 (0.00-0.03) X10*3/uL Absolute Neuts (auto) 2.0 (2.0-8.3) x10*3/uL Absolute Nucleated RBC 0.000 (0.0-0.012) X10*3/uL Nucleated RBC % (auto) 0.0 (0.0-0.2) /100WBC Sodium 141 (135-145) mmol/L Potassium 3.2 L (3.3-5.1) mmol/L Chloride 109 H (96-108) mmol/L Carbon Dioxide 24 (22-29) mmol/L Anion Gap 11 L (12-20) BUN 15 (9-16) mg/dL Creatinine 0.92 (0.5-1.4) mg/dL Estim Creat Clear Calc 90.8 Estimated GFR > 60 Random Glucose 90 (60-115) mg/dL Calcium 8.7 (8.4-10.2) mg/dL Magnesium 2.0 (1.6-2.6) mg/dL Total Bilirubin 0.5 (0.0-1.0) mg/dL AST 18 (5-31) U/L ALT 10 (0-31) U/L Alkaline Phosphatase 47 (39-117) U/L Troponin I High Sens < 2.7 (<3.5-17.0) ng/L Total Protein 6.8 (6.5-8.0) g/dL Albumin 4.3 (3.5-5.0) g/dL Lipase 18 (8-78) U/L Urine Color Yellow Urine Appearance Clear Urine pH 5.5 (5.0-9.0) Ur Specific [place] >= 1.030 H (1.005-1.025) Urine Protein Trace (Neg-Trace) mg/dL Urine Glucose (UA) Negative (Negative) mg/dL Urine Ketones Negative (Negative) mg/dL Urine Blood Moderate (2+) H (Negative) Urine Nitrite Negative (Negative) Ur Leukocyte Esterase Negative (Negative) Urine RBC >20 H (0-2) /HPF Urine WBC 0-5 (0-5) /HPF Ur Squamous Epith Cells 0-2 (0-2) /HPF Urine Bacteria None Seen (None Seen) Hyaline Casts 0-2 (0-2) /LPF COVID-19 (ARAMIS) Negative (Negative) COVID-19 Clin Com See Note Influenza Type A (LETITIA) Negative (Negative) Influenza Type B (LETITIA) Negative (Negative) Influenza A & B Note See Note Independent Interpretation I performed an independent interpretation of an: EKG Discharge Plan Discharge Clinical Impression: Acute left flank pain, Acute thoracic myofascial strain Patient Disposition: Home, Self-Care Instructions: Muscle Strain (ED) Additional Instructions: Use muscle relaxers for back pain. Return to the hospital with any new or worsening symptoms including: Worsening pain despite medication, fevers greater than 100?, difficulty breathing, chest pain, any new symptom that concerns you. Call 911 with any medical emergency. Try to rest over the next several days. You may develop more symptoms if this is a virus that is just starting to take effect. Stay well hydrated. Follow up with your primary care doctor as soon as possible. Prescriptions: New omeprazole 20 mg capsule,delayed release(DR/EC) 20 mg PO DAILY 14 Days Qty: 14 0RF ondansetron 4 mg tablet,disintegrating 4 mg PO Q8H PRN (Reason: nausea and vomiting) 3 Days Qty: 12 0RF methocarbamol 1,000 mg tablet 1,000 mg PO TID Qty: 20 0RF No Action propranolol 60 mg capsule,extended release 24 hr 60 mg PO BEDTIME Qty: 90 1RF ondansetron 4 mg tablet,disintegrating 4 mg PO Q8H Qty: 10 0RF pantoprazole 40 mg tablet,delayed release (DR/EC) 40 mg PO BID 90 Days Qty: 180 1RF tpfoyhiwao-vgsjqwkaxhcfw-irvk [Fioricet] 50-300-40 mg capsule 1 cap PO Q8H PRN (Reason: pain) Qty: 3 0RF acetaminophen 500 mg tablet 1,000 mg PO QID PRN (Reason: pain) Qty: 30 0RF cyclobenzaprine 10 mg tablet 10 mg PO TID Qty: 10 0RF naproxen [Naprosyn] 500 mg tablet 500 mg PO BID Qty: 20 0RF methocarbamol 500 mg tablet 1,000 mg PO Q8H PRN (Reason: pain, moderate) Qty: 24 0RF ibuprofen 600 mg tablet 600 mg PO Q6H PRN (Reason: fever or pain) Qty: 30 0RF acetaminophen [Tylenol Extra Strength] 500 mg tablet 500 mg PO Q6H PRN (Reason: fever or pain) Qty: 14 0RF lidocaine [Lidoderm] 5 % adhesive patch,medicated 1 patch topical DAILY MDD remove after 12 hours PRN (Reason: pain) Qty: 30 0RF Rx Instructions: leave on most painful area for up to 12 hrs cyclobenzaprine 5 mg tablet 5 mg PO Q8H PRN (Reason: pain (scale score 7-10)) 5 Days Qty: 14 0RF loratadine [Allerclear] 10 mg tablet 10 mg PO DAILY PRN (Reason: allergic symptoms) Qty: 30 0RF albuterol sulfate [Proventil HFA] 90 mcg/actuation HFA aerosol inhaler 1 inh inhalation QID montelukast [Singulair] 10 mg tablet 10 mg PO BEDTIME loratadine [Allergy Relief (loratadine)] 10 mg tablet 10 mg PO DAILY Excedrin Migraine 250-250-65 mg tablet 1 tab PO Q4-6H PRN (Reason: Headache) lisinopril 10 mg tablet 10 mg PO DAILY cholecalciferol (vitamin D3) [Vitamin D3] 50 mcg (2,000 unit) capsule 50 mcg PO DAILY polyethylene glycol 3350 [Miralax] 17 gram/dose powder 17 g PO DAILY Qty: 510 2RF Print Language: Maori
--- NOTE | 2024-11-24 20:51 | ECG_ITS ---
Test Reason : sob Blood Pressure : */* mmHG Vent. Rate : 73 BPM Atrial Rate : 73 BPM P-R Int : 138 ms QRS Dur : 94 ms QT Int : 394 ms P-R-T Axes : 64 52 57 degrees QTcB Int : 434 ms Poor data quality, interpretation may be adversely affected Normal sinus rhythm with sinus arrhythmia Possible Left atrial enlargement Borderline ECG When compared with ECG of 04-Mar-2024 18:16, No significant change was found Referred By: Pamella Chakraborty Electronically Signed By: ADAM ALCALA MD
[2024-11-24 21:12] LABS: MANUAL DIFF FLAG NO
[2024-11-24 21:14] LABS: Hematocrit 36.4 % (37.0-47.0); Hemoglobin 12.5 g/dl (12.0-16.0); Imm Gran Abs Auto 0.01 X10*3/uL (0.00-0.03); Imm Gran Pct Auto 0.2 % (0.0-0.4); Lymphocytes Absolute Auto 3.3 X10*3/uL (1.2-4.9); Mean Corpuscular HGB Conc 34.3 g/dl (31.0-35.0); Mean Corpuscular Hemoglobin 29.3 pg (27.0-33.0); Mean Corpuscular Volume 85.4 fL (80.0-98.0); NRBC Abs Auto 0.000 X10*3/uL (0.0-0.012); NRBC Pct Auto 0.0 /100WBC (0.0-0.2); Platelet Count 217 X10*3/uL (160-400); Red Blood Count 4.26 X10*6/uL (4.20-5.50); White Blood Count 5.8 X10*3/uL (4.8-10.8)
[2024-11-24 21:27] LABS: Alanine Aminotransferase 10 U/L (0-31); Albumin Level 4.3 g/dL (3.5-5.0); Alkaline Phosphatase 47 U/L (39-117); Anion Gap 11 (12-20); Aspartate Amino Transferase 18 U/L (5-31); Blood Urea Nitrogen 15 mg/dL (9-16); Calcium 8.7 mg/dL (8.4-10.2); Carbon Dioxide 24 mmol/L (22-29); Chloride 109 mmol/L (96-108); Creatinine Clr Calc Pharmacy 90.8; Estimated Glomerular Filt Rate > 60; Lipase 18 U/L (8-78); Magnesium 2.0 mg/dL (1.6-2.6); Potassium 3.2 mmol/L (3.3-5.1); Sodium 141 mmol/L (135-145); Total Protein 6.8 g/dL (6.5-8.0)
[2024-11-24 21:31] LABS: COVID-19 Test Negative (Negative); IDNOW Serial# 55D5AD1C
[2024-11-24 21:33] LABS: IDNOW Serial# 58CA691E; Influenza B2 Negative (Negative)
[2024-11-24 21:35] LABS: Troponin-I High Sensitivity < 2.7 ng/L (<3.5-17.0)
--- OUTSIDE RECORDS SUMMARY | 2024-11-24 22:43 | XMS_ITS | Encounter Summary ---
Author Organization [employer] Address [address] [place] [address] [address] [place] [address] Care Team Providers Care Drip Pumper Name Role Phone Lu Estrada MD Primary Care Provider [phone] Reason for Visit * Reason Onset Date Comments Appointment Request 12/23/2022 Derm Encounter Details Date Type Department Care Team ([facility] Contact Info) Description 12/23/2022 Telephone [facility] MEDICINE [address] [place] [address] Lu Estrada MD [address] [place] [address] Appointment Request (Derm ) Social History Tobacco [...] Description 12/05/2024 9:15 AM EDT Office Visit [facility] OPTOMETRY [address] [place], [place] [id number] Aziza Mckoy, OD [address] [place] [address] 12/25/2024 9:45 AM EDT Office Visit [facility] MEDICINE [address] [place] [address] Lu Estrada MD [address] [place] [address] documented as of this encounter Visit Diagnoses Not on filedocumented in this encounter Care Teams Drip Pumper Relationship Specialty Start Date End Date Lu Estrada MD [address] [place], [place] [phone] PCP - General Family Medicine 03/27/18 documented as of this encounter
--- OUTSIDE RECORDS SUMMARY | 2024-11-24 22:43 | XMS_ITS | Encounter Summary ---
Author Organization [employer] Address [address] [place] [address] 7t [place] [address] Care Team Providers Care [employer] Media Specialist Name Role Phone Lu Estrada MD Primary Care Provider [phone] Encounter Details Date Type Department Care Team ([facility] Contact Info) Description 10/17/2022 Abstract [facility] ADULT DENTAL [address] [place] [address] Raymon Heidi [address] [place] [address] Social History Tobacco Use Types Packs/Day Years [...] Upcoming Encounters Date Type Department Care Team ([facility] Contact Info) Description 12/05/2024 9:15 AM EDT Office Visit [facility] OPTOMETRY [address] [place], [place] [phone] Aziza Mckoy, OD [address] [place] [address] 12/25/2024 9:45 AM EDT Office Visit [facility] MEDICINE [address] [place] [address] Lu Estrada MD [address] [place] [address] documented as of this encounter Visit Diagnoses Not on filedocumented in this encounter Care Teams [employer] Media Specialist Relationship Specialty Start Date End Date Lu Estrada MD [address] [place] [address] PCP - General Family Medicine 03/27/18 documented as of this encounter
--- OUTSIDE RECORDS SUMMARY | 2024-11-24 22:43 | XMS_ITS | Encounter Summary ---
Author Organization [employer] Address [address] [place] [address] 7t [place] [address] Care Team Providers Care Cigar Packing Examiner Name Role Phone Lu Estrada MD Primary Care Provider [phone] Encounter Details Date Type Department Care Team ([facility] Contact Info) Description 10/17/2022 Abstract [facility] ADULT DENTAL [address] [place] [address] Raymon Heidi [address] [place] [address] Social History Tobacco Use Types Packs/Day Years [...] Upcoming Encounters Date Type Department Care Team ([facility] Contact Info) Description 12/05/2024 9:15 AM EDT Office Visit [facility] OPTOMETRY [address] [place], [place] [phone] Aziza Mkcoy, OD [address] [place] [address] 12/25/2024 9:45 AM EDT Office Visit [facility] MEDICINE [address] [place] [address] Lu Estrada MD [address] [place] [address] documented as of this encounter Visit Diagnoses Not on filedocumented in this encounter Care Teams Cigar Packing Examiner Relationship Specialty Start Date End Date uL Estrada MD [address] [place] [address] PCP - General Family Medicine 03/27/18 documented as of this encounter
--- OUTSIDE RECORDS SUMMARY | 2024-11-24 22:43 | XMS_ITS | Encounter Summary ---
Author Organization [employer] Address [address] [place] [address] 7t [place] [address] Care Team Providers Care Professor Of Practice Name Role Phone Lu Estrada MD Primary Care Provider [phone] Reason for Referral * Consultation (Routine) - Authorized Specialty Diagnoses / Procedures Referred By Amanda mead Referred To Contact Orthopaedic Surgery Diagnoses Ganglion cyst of wrist, right Lu Estrada MD [address] [place] [address] Phone: tel: fax: [facility] Referral ID Status Reason Start Date Expiration Date Visits Requested Visits Authorized [id number] Authorized Specialty Services Required 06/25/2024 06/25/2025 12 12 Encounter Details Date Type Department Care Team (Late st Contact Info) Description 06/24/2024 Orders Only [facility] MEDICINE [address] [place] [address] [phone] Lu Estrada MD [address] [place], [place] [phone] Ganglion cyst of wrist, right (Primary Dx) [...] 9:15 AM EDT Office Visit [facility] OPTOMETRY [address] [place] [address] Aziza Mckoy, OD [address] [place] [address] 12/25/2024 9:45 AM EDT Office Visit [facility] MEDICINE [address] [place] [address] Lu Estrada MD [address] [place] [address] Scheduled Referrals Name Type Priority Associated Diagnoses [...] documented as of this encounter Care Teams Professor Of Practice Relationship Specialty Start Date End Date Lu Estrada MD [address] [place] [address] PCP - General Family Medicine 03/27/18 documented as of this encounter
--- OUTSIDE RECORDS SUMMARY | 2024-11-24 22:44 | XMS_ITS | Encounter Summary ---
Author Organization [employer] Address [address] [place] [address] 7 [place] [address] Care Team Providers Care Mattress And Foundation Sewer Name Role Phone Lu Estrada MD Primary Care Provider Encounter Details Date Type Department Care Team (Late st Contact Info) Description 04/04/2022 Abstract [facility] ADULT DENTAL [address] [place] [address] Viet Kellogg DDS [address] [place] [address] Social History Tobacco Use Types Packs/Day Years [...] Office Visit [facility] OPTOMETRY [address] [place] [address] Aziza Mckoy, OD [address] [place] [address] 12/25/2024 9:45 AM EDT Office Visit [facility] MEDICINE [address] [place] [address] Lu Estrada MD [address] [place], [place] [phone] documented as of this encounter Visit Diagnoses Not on filedocumented in this encounter Care Teams Mattress And Foundation Sewer Relationship Specialty Start Date End Date Lu Estrada MD [address] [place] [address] PCP - General Family Medicine 03/27/18 documented as of this encounter
--- OUTSIDE RECORDS SUMMARY | 2024-11-24 22:44 | XMS_ITS | Encounter Summary ---
Author Organization [employer] Address [address] [place] [address] 7t [place] [address] Care Team Providers Care Tape Deck Installer Name Role Phone Lu Estrada MD Primary Care Provider [phone] Encounter Details Date Type Department Care Team ([facility] Contact Info) Description 03/18/2022 Abstract [facility] ADULT DENTAL [address] [place] [address] Viet Kellogg DDS [address] [place] [address] Social History Tobacco Use Types Packs/Day Years [...] Upcoming Encounters Date Type Department Care Team ([facility] Contact Info) Description 12/05/2024 9:15 AM EDT Office Visit [facility] OPTOMETRY [address] [place] [address] Aziza Mckoy, OD [address] [place] [address] 12/25/2024 9:45 AM EDT Office Visit [facility] MEDICINE [address] [place], [place] [phone] Lu Estrada MD [address] [place], [place] [phone] documented as of this encounter Visit Diagnoses Not on filedocumented in this encounter Care Teams Tape Deck Installer Relationship Specialty Start Date End Date Lu Estrada MD [address] [place], [place] [phone] PCP - General Family Medicine 03/27/18 documented as of this encounter
--- OUTSIDE RECORDS SUMMARY | 2024-11-24 22:44 | XMS_ITS | Encounter Summary ---
Author Organization [employer] Address [address] [facility] 7t [place] [address] Care Team Providers Care Work And Family Life Consultant Name Role Phone Lu Estrada MD Primary Care Provider [phone] Reason for Visit * Reason Comments Med Refill Encounter Details Date Type Department Care Team ([facility] Contact Info) Description 04/22/2022 Refill [facility] [address] [place] [address] Vandana Black, ANP [address] [place] [address] Social History Tobacco Use Types Packs/Day Years [...] Upcoming Encounters Date Type Department Care Team ([facility] Contact Info) Description 12/05/2024 9:15 AM EDT Office Visit [facility] OPTOMETRY [address] [place] [address] Lorenayvette Aziza, OD [address] [place] [address] 12/25/2024 9:45 AM EDT Office Visit [facility] MEDICINE [address] [place] [address] Lu Estrada MD [address] [place] [address] documented as of this encounter Visit Diagnoses Not on filedocumented in this encounter Care Teams Work And Family Life Consultant Relationship Specialty Start Date End Date Lu Estrada MD [address] [place] [address] PCP - General Family Medicine 03/27/18 documented as of this encounter
--- OUTSIDE RECORDS SUMMARY | 2024-11-24 22:44 | XMS_ITS | Encounter Summary ---
Author Organization [employer] Address [address] [facility] 7t [place] [address] Care Team Providers Care Network Engineering Advisor Name Role Phone Lu Estrada MD Primary Care Provider [phone] Reason for Visit * Reason Onset Date Comments Appointment 07/05/2022 Encounter Details Date Type Department Care Team ([facility] st Contact Info) Description 07/05/2022 Telephone [facility] ADULT DENTAL [address] [place] [address] Raymon, Heidi [address] [place] [address] Appointment Social History Tobacco Use Types Packs/Day [...] appt. It is not currently requested in [facility] and I dont know if to request or not sure if the Nex Gen list is blended with Epic list. documented in this encounter Plan of Treatment Upcoming Encounters Date Type Department Care Team (Late st Contact Info) Description 12/05/2024 9:15 AM EDT Office Visit [facility] OPTOMETRY [address] [place], [place] [phone] Aziza Mckoy, OD [address] [place] [address] 12/25/2024 9:45 AM EDT Office Visit [facility] MEDICINE [address] [place] [address] Lu Estrada MD [address] [place] [address] documented as of this encounter Visit Diagnoses Not on filedocumented in this encounter Care Teams Network Engineering Advisor Relationship Specialty Start Date End Date Lu Estrada MD [address] [place] [address] PCP - General Family Medicine 03/27/18 documented as of this encounter
--- OUTSIDE RECORDS SUMMARY | 2024-11-24 22:44 | XMS_ITS | Encounter Summary ---
Author Organization [employer] Address [address] [facility] 7t [place] [address] Care Team Providers Care Licensed Club Manager Name Role Phone Lu Estrada MD Primary Care Provider [phone] Reason for Visit * Reason Comments Med Refill Encounter Details Date Type Department Care Team ([facility] st Contact Info) Description 05/01/2023 Refill [facility] MEDICINE [address] [place] [address] Lorri Eduardo, [address] [place] [address] Social History Tobacco Use Types Packs/Day Years [...] Description 12/05/2024 9:15 AM EDT Office Visit [facility] OPTOMETRY [address] [place], [place] [phone] Aziza Mckoy, OD [address] [place] [address] 12/25/2024 9:45 AM EDT Office Visit [facility] MEDICINE [address] [place] [address] Lu Estrada MD [address] [place] [address] documented as of this encounter Visit Diagnoses Not on filedocumented in this encounter Additional Health Concerns Assessment Noted Time PHQ-9 Depression Total Score: 0 03/08/20 23 11:18 AM EST documented as of this encounter Care Teams Licensed Club Manager Relationship Specialty Start Date End Date Lu Estrada MD [address] [place] [address] PCP - General Family Medicine 03/27/18 documented as of this encounter
--- OUTSIDE RECORDS SUMMARY | 2024-11-24 22:44 | XMS_ITS | Encounter Summary ---
Author Organization [employer] Address [address] [facility] [address] [address] [place] [address] Care Team Providers Care Hog Ringer Name Role Phone Lu Estrada MD Primary Care Provider [phone] Encounter Details Date Type Department Care Team ([facility] Contact Info) Description 05/29/2023 Abstract [facility] MED[facility] [address] [place], [place] [phone] Lu Estrada MD [address] [place], [place] [phone] Social History Tobacco Use Types Packs/Day Years [...] 9:15 AM EDT Office Visit [facility] OPTOMETRY [address] [place] [address] Aziza Mckoy, OD [address] [place] [address] 12/25/2024 9:45 AM EDT Office Visit [facility] MEDICINE [address] [place] [address] Lu Estrada MD [address] [place] [address] documented as of this encounter Procedures Procedure [...] documented as of this encounter Care Teams Hog Ringer Relationship Specialty Start Date End Date Lu Estrada MD [address] [place] [address] PCP - General Family Medicine 03/27/18 documented as of this encounter
--- OUTSIDE RECORDS SUMMARY | 2024-11-24 22:44 | XMS_ITS | Clinical Summary ---
Author Organization [email or web address] Address [address] [place] [address] 7t [place] [address] Care Team Providers Care Cnc Laser Operator Name Role Phone Lu Estrada MD Primary Care Provider [phone] Allergies No known active allergies Medications hydrocortisone [...] Feb 2024 was unremarkable - since her [facility] surgery; advised to contact her surgeon or [facility] Atypical chest pain 07/13/2022 Enlarged tonsils 07/13/2022 [...] Plan (04/25/2022 4:36 PM EST): -followed by [facility] GI continue famotidine -continue pantoprazole -avoid NSAIDS IBS (irritable bowel syndrome) 04/21/2022 Assessment & Plan (01/28/2024 4:45 PM EST): - followed by [facility] GI last seen in May 2023 - s/p EGD and colonoscopy -GI prescribed dicyclomine, simethicone, and Creon, but she is not taking it; recommended to discuss with GI specialist before discontinuing it -work on stress reduction Assessment & Plan (05/05/2023 6:42 AM EST): - followed by [facility] GI last seen in [...] (04/29/2022 6:27 PM EST): - followed by [facility] GI last seen on [...] 4:48 PM EST): - previously seen by [facility] Clinician. - patient is not interested in behavioral health service -Pt was recommended to improve sleepy hygien and exercise during the day instead of taking medications Assessment & Plan (04/25/2022 4:35 PM EST): Was seen by [facility] Clinician. -Will check status of f/u. -Pt was recommended to improve sleepy hygien and exercise during the day instead of taking medications Dislocation of acromioclavicular joint 7 Migraine 05/04/2016 Assessment & Plan (04/28/2024 4:12 PM EST): -seen by [facility] neurologist in Apr 2019 -seen by [facility] neurology in Dec 2022 -04/23/22 [...] Plan (01/28/2024 4:50 PM EST): -seen by [facility] neurologist in Apr 2019 -seen by [facility] neurology in Dec 2022 -04/23/22 [...] Plan (05/05/2023 6:51 AM EST): -seen by [facility] neurologist in Apr 2019 -seen by [facility] neurology in Dec 2022 -04/23/22 [...] Encounters Date Type Department Care Team Description 11/21/2024 Orders Only GENERIC EXTERNAL DATA DEPARTMENT Provider, Generic External Data 09/11/2024 Telephone [facility] [address] [place], [place] [phone] Heidi Ennis 08/29/2024 Orders Only GENERIC EXTERNAL DATA DEPARTMENT Provider, Generic External Data from Last 3 Months Immunizations Immunization Administration Dates Next Due DTaP 11/04/2011, 2,05/31/1991,05/09,02/05/1988,1987 Hep A, Adult 12/26/2017 Hep B, Adolescent or Pediatric 11/16/1999,1998 Hep B, adult 12/26/2017 Hib (HbO) 05/09/1990 IPV 01/26/1988 Influenza injectable quadriv alent [...] Description 12/05/2024 9:15 AM EDT Office Visit [facility] [address] [place] [address] Aziza Mckoy, OD [address] [place] [address] 12/25/2024 9:45 AM EDT Office Visit [facility] [address] [place] [address] Lu Estrada MD [address] [place] [address] Health Maintenance Due Date Last Done Comments [...] Procedure Name Priority Date/Time Associated Diagnosis Comments CULTURE, URINE, ROUTINE Routine 11/21/2024 11:24 AM EDT CHLAMYDIA/N. GONORRHOEAE RNA, TMA, UROGENITAL Routine 11/21/2024 11:24 AM EDT GROSS AND MICROSCOPIC LEVEL 3 Routine 08/29/2024 [...] Recently Relevant to Health Maintenance Results * Chlamydia/N. Gonorrhoeae RNA, TMA, Urogenitial (11/21/2024 11:24 AM EDT) CT PCR NOT DETECTED Not Detect. [facility] Comment:A not detected test result does not exclude the possibilityof infection because test results can be affected byimproper specimen collection, concurrent antibiotic therapy,or the number of organisms in the specimen which may bebelow the sensitivity of the test. As with many diagnostictests, results from the Xpert CT/NG assay should beinterpreted in conjunction with other laboratory andclinical data available to the clinician.Xpert CT/NG performance has not been evaluated in patientsless than 14 years of age. The assay should not be used forthe evaluationof suspected sexual abuse or for other medico-legalindications. Additional testing is recommended in anycircumstance when false positive or false negative resultscould lead to adverse medical, social or psychologicalconsequences. NG PCR NOT DETECTED Not Detect. [facility] Comment:A not detected test result does not exclude the possibilityof infection because test results can be affected byimproper specimen collection, concurrent antibiotic therapy,or the number of organisms in the specimen which may bebelow the sensitivity of the test. As with many diagnostictests, results from the Xpert CT/NG assay should beinterpreted in conjunction with other laboratory andclinical data available to the clinician.Xpert CT/NG performance has not been evaluated in patientsless than 14 years of age. The assay should not be used forthe evaluationof suspected sexual abuse or for other medico-legalindications. Additional testing is recommended in anycircumstance when false positive or false negative resultscould lead to adverse medical, social or psychologicalconsequences. 11/21/2024 11:2 4 AM EDT 11/21/2024 2:14 PM EDT Generic External Data Provider LAB MICROBIOLOGY - GENERAL ORDERABLES Final Result Performing Organization Address [facility] Co de Phone Number [facility] [address] [place] [phone] * Culture, Urine, Routine (11/21/2024 11:24 AM EDT) Urine Urine specimen obtained by clean catch procedure / Unknown 11/21/2024 11:24 AM EDT 11/21/2024 2:14 PM EDT Comment:UACC Narrative [facility] - 11/22/2024 9:11 AM EDT Urine Culture No growth. Specimen Source: Urine clean catch Generic External Data Provider LAB MICROBIOLOGY - GENERAL ORDERABLES Final Result Performing Organization Address [facility] Co de Phone Number [facility] [address] [place] [phone] * Gross and Microscopic Level 3 (08/29/2024 8:26 AM EDT) 08/29/2024 8:26 AM EDT 08/29/2024 10:01 AM EDT [facility] - 08/30/2024 4:10 PM EDT ----- ------- Name: Mike RamseyShruti Age/Sex: 39/F : 1985 Unit#: [id number] Attend Dr: Hollie Stauffer MD Re08/29/24 Status: [facility] Location: [facility] Disch: ----- ------- SPEC : [id number] RECD: 08/29/24 STATUS: ROMI RIVERA NUM: [id number] MEÑO: 08/29/[address] [facility] [address]: Hollie Stauffer MD ENTERED: 08/29/24-1020 SP [...] a thin-walled cyst containing orange-red mucogelatinous material. Gore Stitcher sections are submitted in a cassette labeled A1. CEDS IHC S/NG Disclaimer NOTE: Unless otherwise stated, all tissue is formalin-fixed and paraffin-embedded. Some or all of the immunohistochemical tests reported herein may have been developed and their performance characteristics determined by [facility]. They have not been cleared or approved by the U.S. Food and Drug Administration (FDA). However, the FDA has determined that such clearance or approval is not necessary. This laboratory is certified under the Clinical Laboratory Improvement Amendments of 1988 (CLIA) as qualified to perform high complexity clinical laboratory testing. Copies To: Hollie Stauffer MD [facility] [address] [place] [address] Dr [address] [place] [address] CONTINUED ON NEXT PAGE ----- ------- Name: Mike RamseyShruti Age/Sex: 39/F : 1985 Unit#: [id number] Attend Dr: Hollie Stauffer MD Re08/29/24 Status: [facility] Location: [facility] Disch: ----- ------- SPEC : [id number] RECD: 08/29/24-1000 STATUS: ROMI RIVERA NUM: [id number] MEÑO: 08/29/[address] [facility] [address]: Hollie Stauffer MD ENTERED: 08/29/24-1019 SP TYPE: Surgical OTHR DR: Lu Estrada MD ORDERED: Gross Micro L3 Copies To: (Continued) Lu Estrada MD [facility] [address] [place] [address] ----- ------- Signed (signature on file) Ava Aquino MD 08/30/24 0400 ----- ------- END OF REPORT us Generic External Data Provider LAB CYTOLOGY MIKE MICHAELS Final Result [facility] [address] [place] [phone] * (ABNORMAL) Lipid Panel with Reflex to Direct LDL (01/22/2024 3:20 PM EDT) Triglycerides 88 <150 mg/dL [facility] Comment:Desirable Triglyceri de: less than 150 mg/dLBorderline High Triglyceride 150-199 mg/dLHigh Triglyceride: 200-499 mg/dLVery High Triglyceride: greater than or equal to 5OO mg/dL Cholesterol 183 <200 mg/dL [facility] Comment:Desirable Cholestero l: less than 200 mg/dLBorderline High Cholesterol: 200-239 mg/dLHigh Cholesterol: greater than 239 mg/dL LDL Cholesterol Calculated 126(H) <100 mg/dL [facility] Comment:Desirable LDL: less than 100 mg/dLNear Optimal/Above Optimal LDL: 110- 129 mg/dLBorderline High LDL: 130-159 mg/dLHigh LDL: 160-189 mg/dLVery High LDL: greater than or equal to 190 mg/dL HDL Cholesterol 40(L) >40 mg/dL [facility] Comment:Desirable HDL: great er than 40 mg/dL Note: This HDL assay may give artificially low results in patients with liver disease. Blood 01/22/2024 3:20 PM EDT 01/22/2024 4:05 PM EDT us Lu Estrada MD LAB BLOOD ORDERABLES Final Resul t [facility] [address] [place] [phone] * ThinPrep Imaging Pap and HPV mRNA E6/E7 with Reflex to HPV 16,18/45 (12/05/2023 12:00 AM EDT) HPV 16 RNA [facility] HPV 18/45 RNA [facility] HPV nRNA E6/E7 Not Detected Not Detected [facility] Comment:Methodology: Transcr iption-Mediated AmplificationThis assay detects E6/E7 viral messenger RNA (mRNA) from 14high-risk HPV types (16,18,31,33,35,39,45,51,52,56,58,59,66,68).Cervical sources are required for HPV testing.If a vaginal source from a patient who has had atotal hysterectomy with removal of cervix wassubmitted, please contact the testing laboratoryfor alternative testing options.For additional information, please refer tohttp://education.[employer] News [employer]/faq/QSD493j0(This link if provided for information/educational purposes only.)THIS TEST WAS PERFORMED AT:[facility] [place] [phone] MILLS MD SOURCE: SEE NOTE [facility] Comment:None given Report Status: [facility] Clinical Information: SEE NOTE [facility] Comment:None given LMP: SEE NOTE [facility] Comment:NONE GIVEN Prev. PAP: SEE NOTE [facility] Comment:NONE GIVEN Prev. BX: SEE NOTE [facility] Comment:NONE GIVEN Statement Of Adequacy: SEE NOTE [facility] Comment:Satisfactory for tahmina luation.Endocervical/transformation zone componentpresent. General Categorization: [facility] Interpretation/Result: SEE NOTE [facility] Comment:Cytology Results: Ne gative for intraepitheliallesion or malignancy. Cytology Comment SEE NOTE [facility] Comment:This Pap test has be en evaluated with computerassisted technology. Rolling Mill Operator: SEE NOTE [facility] Comment:[place], CT(ASCP)CT scre ening location: [place] [address] Review Rolling Mill Operator: [facility] Pathologist [facility] PAP Infection [facility] See Note SEE NOTE [facility] Comment:EXPLANATORY NOTE:The Pap is a screening test for cervical cancer. It isnot a diagnostic test and is subject to false negativeand false positive results. It is most reliable when asatisfactory sample, regularly obtained, is submittedwith relevant clinical findings and history, and whenthe Pap result is evaluated along with historic andcurrent clinical information. 12/05/2023 12/05/2023 Narrative [facility] - 12/11/2023 1:12 PM EDT SEE SCANNED RESULTS IN EMR us Generic External Data Provider LAB PATHOLOGY ORD ERABLES Final Result [facility] [address] [place] [phone] * HEPATITIS C AB W/REFL TO [...] a test for HCV RNA (test code 14359) is suggested. For additional information please refer to http://CreditCardsOnline.[employer] News Funnel/faq/BVL31j7 (This link is being provided for informational/ educational purposes only.) 03/16/2020 4:32 PM EST Lu Estrada MD HISTORICAL/NON ORDERABLE LABS Fi nal Result Performing Organization Address [facility] Phone Number [facility] [address] * HIV 1/2 ANTIGEN/ANTIBODY,FOURTH GENERATION W/RFL (03/16/2020 4:32 PM EST) Pathologist [facility] HIV-1/2 ANTIGEN AND ANTIBODIES, 4TH GENERATION W/ REFLEX NON-REACT CORA NON-REACT CORA [facility] Comment: HIV-1 antigen and HIV-1/HIV-2 [...] purpose. For additional information please refer to http://CreditCardsOnline.MedCPU.[employer]/faq/VXZ506 (This link is being provided for informational/ educational purposes only.) The performance of this assay has not been clinically validated in patients less than 2 years old. 03/16/2020 4:32 PM EST Lu Estrada MD LAB BLOOD ORDERABLES Final Resul t Performing Organization Address [facility] Phone Number [facility] [address] from Last 3 Months or Most Recently Relevant to Health Maintenance Insurance [place] [facility] STAND ADULT Care Teams Cnc Laser Operator Relationship Specialty Start Date End Date Lu Estrada MD [address] [place] [phone] PCP - General Family Medicine 03/27/18
--- OUTSIDE RECORDS SUMMARY | 2024-11-24 22:44 | XMS_ITS | Encounter Summary ---
Author Organization [employer] Address [address] [place] [address] 7 [place] [address] Care Team Providers Care Wilton Weaver Name Role Phone Lu Estrada MD Primary Care Provider [phone] Encounter Details Date Type Department Care Team (Late Contact Info) Description 04/19/2022 Orders Only [facility] [address] [place] [phone] Lu Estrada MD [address] [place] [address] Social History Tobacco Use Types Packs/Day Years [...] Office Visit [facility] [address] [place] [address] Aziza Mckoy, OD [address] [place] [address] 12/25/2024 9:45 AM EDT Office Visit [facility] [address] [place] [address] Lu Estrada MD [address] [place], [place] [phone] documented as of this encounter Visit Diagnoses Not on filedocumented in this encounter Care Teams Wilton Weaver Relationship Specialty Start Date End Date Lu Estrada MD [address] [place] [address] PCP - General Family Medicine 03/27/18 documented as of this encounter
--- OUTSIDE RECORDS SUMMARY | 2024-11-24 22:44 | XMS_ITS | Encounter Summary ---
Author Organization [employer] Address [address] [place] [address] 7 [place] [address] Care Team Providers Care Perinatal Coordinator Name Role Phone Lu Estrada MD Primary Care Provider [phone] Encounter Details Date Type Department Care Team (Late Contact Info) Description 02/23/2022 Abstract [facility] [address] [place] [address] Dental, Provider, DDS Social History Tobacco Use [...] 9:15 AM EDT Office Visit [facility] [address] [place] [address] Aziza Mckoy, OD [address] [place] [address] 12/25/2024 9:45 AM EDT Office Visit [facility] [address] [place] [address] Lu Esrtada MD [address] [place] [address] documented as of this encounter Procedures Procedure Name Priority Date/Time Associated Diagnosis Comments 14 O AMALGAM FILLING Routine 02/23/2022 12:00 AM EST documented in this encounter Visit Diagnoses Not on filedocumented in this encounter Care Teams Perinatal Coordinator Relationship Specialty Start Date End Date Lu Estrada MD [address] [place] [address] PCP - General Family Medicine 03/27/18 documented as of this encounter
--- OUTSIDE RECORDS SUMMARY | 2024-11-24 22:44 | XMS_ITS | Encounter Summary ---
Author Organization [employer] Address [address] [place] [address] 7t [place] [address] Care Team Providers Care Career Information Specialist Name Role Phone Lu Estrada MD Primary Care Provider [phone] Reason for Visit * Reason Comments Med Refill Encounter Details Date Type Department Care Team (Late Contact Info) Description 06/08/2022 Refill [facility] [address] [place] [address] Name, MD Danny [address] [place] [address] Social History Tobacco Use Types Packs/Day Years [...] 12/05/2024 9:15 AM EDT Office Visit [facility] OPT[facility] [address] [place] [address] Aziza Mckoy, OD [address] [place] [address] 12/25/2024 9:45 AM EDT Office Visit [facility] [address] [place] [address] Lu Estrada MD [address] [place] [address] documented as of this encounter Visit Diagnoses Not on filedocumented in this encounter Care Teams Career Information Specialist Relationship Specialty Start Date End Date Lu Estrada MD [address] [place] [address] PCP - General Family Medicine 03/27/18 documented as of this encounter
--- OUTSIDE RECORDS SUMMARY | 2024-11-24 22:44 | XMS_ITS | Encounter Summary ---
Demographics Address [address] [facility] [address] [place] [address] Home Phone Work Phone Mobile Phone Email Address Preferred Language en Marital Status Single Gnosticist Affiliation Unknown Race Other Race Ethnic Group Unknown Author Organization [employer] Address [address] [facility] [address]t [place] [address] Care Team Providers Care Respiratory Care Practitioner Name Role Phone Lu Estrada MD Primary Care Provider [phone] Reason for Visit * Reason Comments Med Refill Encounter Details Date Type Department Care Team ([facility] Contact Info) Description 03/09/2023 Refill [facility] [address] [place] [address] Vandana Black, ANP [address] [place] [address] Social History Tobacco Use Types Packs/Day Years [...] Description 12/05/2024 9:15 AM EDT Office Visit [facility] OPTOMETRY [address] [place], [place] [phone] Aziza Mckoy, OD [address] [place] [address] 12/25/2024 9:45 AM EDT Office Visit [facility] MEDICINE [address] [place] [address] Lu Estrada MD [address] [place] [address] documented as of this encounter Visit Diagnoses Not on filedocumented in this encounter Additional Health Concerns Assessment Noted Time PHQ-9 Depression Total Score: 0 03/08/20 23 11:18 AM EST documented as of this encounter Care Teams Respiratory Care Practitioner Relationship Specialty Start Date End Date Lu Estrada MD [address] [place] [address] PCP - General Family Medicine 03/27/18 documented as of this encounter
--- OUTSIDE RECORDS SUMMARY | 2024-11-24 22:44 | XMS_ITS | Encounter Summary ---
Author Organization [employer] Address [address] [place] [address] 7 [place] [address] Care Team Providers Care Packing Tractor Machine Operator Name Role Phone Lu Estrada MD Primary Care Provider [phone] Encounter Details Date Type Department Care Team (Latest Contact Info) Description 07/08/2020 Abstract [facility] Dental, Provider, DDS Social History Tobacco [...] EDT Office Visit [facility] [address] [place] [address] Aziza Mckoy, MIN [address] [place] [address] 12/25/2024 9:45 AM EDT Office Visit [facility] [address] [place] [address] Lu Estrada MD [address] [place] [address] documented as of this encounter Visit Diagnoses Not on filedocumented in this encounter Care Teams Packing Tractor Machine Operator Relationship Specialty Start Date End Date Lu Estrada MD [address] [place] [address] PCP - General Family Medicine 03/27/18 documented as of this encounter
--- OUTSIDE RECORDS SUMMARY | 2024-11-24 22:44 | XMS_ITS | Encounter Summary ---
Author Organization [employer] Address [address] [place] [address] 7 [place] [address] Care Team Providers Care Solar Energy Sales Specialist Name Role Phone Lu Estrada MD Primary Care Provider [phone] Reason for Visit * Reason Comments Med Refill Encounter Details Date Type Department Care Team (Late Contact Info) Description 04/19/2022 Refill [facility] [address] [place] [address] Leatha Chong MD [address] [place] [address] Primary hypertension (Primary Dx) Social History Tobacco [...] Description 12/05/2024 9:15 AM EDT Office Visit [facility] OPTOMETRY [address] [place] [address] Aziza Mckoy, OD [address] [place] [address] 12/25/2024 9:45 AM EDT Office Visit [facility] MED[facility] [address] [place] [address] Lu Estrada MD [address] [place] [address] documented as of this encounter Visit Diagnoses Diagnosis Primary hypertension- Primary Unspecified essential hypertension documented in this encounter Care Teams Solar Energy Sales Specialist Relationship Specialty Start Date End Date Lu Estrada MD [address] [place] [address] PCP - General Family Medicine 03/27/18 documented as of this encounter
--- OUTSIDE RECORDS SUMMARY | 2024-11-24 22:44 | XMS_ITS | Encounter Summary ---
Author Organization [employer] Address [address] [facility] 7t [place] [address] Care Team Providers Care Senior C Developer Name Role Phone Lu Estrada MD Primary Care Provider [phone] Reason for Visit * Reason Comments Med Refill Encounter Details Date Type Department Care Team ([facility] st Contact Info) Description 03/09/2023 Refill [facility] [address] [place] [address] Lorri Eduardo, [address] [place] [address] Social History Tobacco Use Types Packs/Day Years [...] Description 12/05/2024 9:15 AM EDT Office Visit [facility] OPTOMETRY [address] [place], [place] [phone] Aziza Mckoy, OD [address] [place] [address] 12/25/2024 9:45 AM EDT Office Visit [facility] [address] [place] [address] Lu Estrada MD [address] [place] [address] documented as of this encounter Visit Diagnoses Not on filedocumented in this encounter Additional Health Concerns Assessment Noted Time PHQ-9 Depression Total Score: 0 03/08/20 23 11:18 AM EST documented as of this encounter Care Teams Senior C Developer Relationship Specialty Start Date End Date Lu Estrada MD [address] [place] [address] PCP - General Family Medicine 03/27/18 documented as of this encounter
--- OUTSIDE RECORDS SUMMARY | 2024-11-24 22:44 | XMS_ITS | Encounter Summary ---
Demographics Address [address] [facility] [address] [place] [address] Home Phone Work Phone Mobile Phone Email Address Preferred Language en Marital Status Single Anabaptist Affiliation Unknown Race Other Race Ethnic Group Unknown Author Organization [employer] Address [address] [facility] [address] 7t [place] [address] Care Team Providers Care Boot And Shoe Repairman Name Role Phone Lu Estrada MD Primary Care Provider [phone] Encounter Details Date Type Department Care Team ([facility] Contact Info) Description 11/21/2024 Orders Only GENERIC EXTERNAL DATA [...] Description 12/05/2024 9:15 AM EDT Office Visit [facility] OPTOMETRY [address] [place] [address] Aziza Mckoy, OD 267 [place] [address] 12/25/2024 9:45 AM EDT Office Visit [facility] MEDICINE 230 [place] [address] Lu Estrada MD 230 [place] [address] documented as of this encounter Procedures Procedure Name Priority Date/Time Associated Diagnosis Comments CHLAMYDIA/N. GONORRHOEAE RNA, TMA, UROGENITAL Routine 11/21/2024 11:24 AM EDT CULTURE, URINE, ROUTINE Routine 11/21/2024 11:24 AM EDT documented in this encounter Results * Culture, Urine, Routine (11/21/2024 11:24 AM EDT) Urine Urine specimen obtained by clean catch procedure / Unknown 11/21/2024 11:24 AM EDT 11/21/2024 2:14 PM EDT Comment:UACC Narrative [facility] - 11/22/2024 9:11 AM EDT Urine Culture No growth. Specimen Source: Urine clean catch us Generic External Data Provider LAB MICROBIOLOGY - GENERAL ORDERABLES Final Result [facility] [address] [place] [address] [phone] * Chlamydia/N. Gonorrhoeae RNA, TMA, Urogenitial (11/21/2024 11:24 AM EDT) CT PCR NOT DETECTED Not Detect. [facility] Comment:A not detected test result does [...] psychologicalconsequences. NG PCR NOT DETECTED Not Detect. [facility] Comment:A not detected test result does [...] 4 AM EDT 11/21/2024 2:14 PM EDT us Generic External Data Provider LAB MICROBIOLOGY - GENERAL ORDERABLES Final Result [facility] [address] [place] [address] [phone] documented in this encounter Visit Diagnoses Not on filedocumented in this encounter Additional Health Concerns Assessment Noted Time PHQ-9 Depression Total Score: 5 01/22/20 24 3:06 PM EDT documented as of this encounter Care Teams Boot And Shoe Repairman Relationship Specialty Start Date End Date Lu Estrada MD [address] [place] [address] PCP - General Family Medicine 03/27/18 documented as of this encounter
--- OUTSIDE RECORDS SUMMARY | 2024-11-24 22:44 | XMS_ITS | Encounter Summary ---
Demographics Address [address] [facility] [address] [place] [address] Home Phone Work Phone Mobile Phone Email Address Preferred Language en Marital Status Single Gnosticist Affiliation Unknown Race Other Race Ethnic Group Unknown Author Organization [employer] Address [address] [facility] 7t [place] [address] Care Team Providers Care Digital Campaign Specialist Name Role Phone Lu Estrada MD Primary Care Provider [phone] Encounter Details Date Type Department Care Team ([facility] st Contact Info) Description 04/30/2024 Orders Only [facility] MEDICINE [address] [place] [address] Lu Estrada MD 230 [place], [place] [phone] Abnormal CT of the abdomen (Primary Dx); [...] Description 12/05/2024 9:15 AM EDT Office Visit [facility] OPTOMETRY [address] [place] [address] Aziza Mckoy, OD [address] [place] [address] 12/25/2024 9:45 AM EDT Office Visit [facility] MEDICINE [address] [place] [address] Lu Estrada MD 230 [place] [address] documented as of this encounter Procedures Procedure Name Priority Date/Time Associated Diagnosis Comments BI MAMMOGRAM DIAGNOSTIC TOMOSYNTHESIS BILATERAL Routine 06/07/2024 10:00 AM EDT documented in this encounter Results * BI Mammogram Diagnostic Tomosynthesis Bilateral (06/07/2024 10:00 AM EDT) Anatomical Region Laterality Modality Breast Bilateral Mammography 06/07/2024 10:0 0 AM EDT Narrative 06/07/2024 11:42 AM EDT [facility] [address] [place], [place] [address] Mammography Report Signed Patient: Shruti Winters MR#: [id number] : 1985 Acct:[id number] Age/Sex: 39 / F ADM Date: 06/07/24 Loc: HO.MAMMO Attending Dr: Lu Estrada MD Ordering Physician: Lu Estrada MD Results: 1Negative Date of Service: 06/07/24 Follow Up: Mammo at 42 or e arlier if clinically needed Procedure(s): MM tomosynthesis diagnostic BI Accession Number(s): [id number] cc: Lu Estrada MD EXAMINATION: MM DIAGNOSTIC [...] 06/07/24 1139 DD/ 1000 TD/TT: 06/07/24 1018 Composite Mechanic: Procedure Note Donotuseinterpreter, Image - 06/07/2024 [facility] [address] [place] [address] Mammography Report Signed Patient: Ajay Winters#: [id number] : 1985Acct:[id number] Age/Sex: 39 / FADM Date: 06/07/24 Loc: HO.MAMMO Attending Dr: Lu Estrada MD Ordering Physician: Lu Estrada MDResults: 1Negative Date of Service: 06/07/24Follow Up: Mammo at 42 or e arlier if clinically needed Procedure(s): MM tomosynthesis diagnostic BI Accession Number(s): [id number] cc: Lu Estrada MD EXAMINATION: MM DIAGNOSTIC [...] 06/07/24 1139 DD/ 1000 TD/TT: 06/07/24 1018 Composite Mechanic: Lu Estrada MD IMG BI PROCEDURES Final [...] documented as of this encounter Care Teams Digital Campaign Specialist Relationship Specialty Start Date End Date Lu Estrada MD [address] [place] [address] PCP - General Family Medicine 03/27/18 documented as of this encounter
--- OUTSIDE RECORDS SUMMARY | 2024-11-24 22:44 | XMS_ITS | Encounter Summary ---
Demographics Address [address] [facility] [address] [place] [address] Home Phone Work Phone Mobile Phone Email Address Preferred Language en Marital Status Single Bahai Affiliation Unknown Race Other Race Ethnic Group Unknown Author Organization [employer] Address [address] [facility] 7t [place] [address] Care Team Providers Care Print Press Operator Name Role Phone Lu Estrada MD Primary Care Provider Reason for Visit * Reason Comments Med Refill Encounter Details Date Type Department Care Team ([facility] st Contact Info) Description 06/18/2022 Refill [facility] CHC MED & PEDS [address] [place] [address] Vandana Black, ANP 230 [place] [address] Social History Tobacco Use Types Packs/Day Years [...] 9:15 AM EDT Office Visit [facility] OPTOMETRY [address] [place] [address] TarAziza crawford, OD [address] [place] [address] 12/25/2024 9:45 AM EDT Office Visit [facility] MEDICINE 230 [place] [address] Lu Estrada MD 230 [place] [address] documented as of this encounter Visit Diagnoses Not on filedocumented in this encounter Care Teams Print Press Operator Relationship Specialty Start Date End Date Lu Estrada MD [address] [place] [address] [phone] PCP - General Family Medicine 03/27/18 documented as of this encounter
--- OUTSIDE RECORDS SUMMARY | 2024-11-24 22:44 | XMS_ITS | Encounter Summary ---
Author Organization [employer] Address [address] [facility] 7t [place] [address] Care Team Providers Care Supervisory It Specialist Name Role Phone Lu Estrada MD Primary Care Provider [phone] Reason for Visit * Reason Onset Date Comments Letter for School/Work 04/27/2023 Encounter Details Date Type Department Care Team ([facility] Contact Info) Description 04/27/2023 Telephone [facility] MEDICINE 230 [place] [address] Lu Estrada MD 230 [place] [address] Letter for School/Work Social History Tobacco Use [...] Description 12/05/2024 9:15 AM EDT Office Visit [facility] OPTOMETRY [address] [place] [address] TarAziza crawford, OD 267 [place] [address] 12/25/2024 9:45 AM EDT Office Visit [facility] MEDICINE 230 [place] [address] Lu Estrada MD 230 [place] [address] documented as of this encounter Visit Diagnoses Not on filedocumented in this encounter Additional Health Concerns Assessment Noted Time PHQ-9 Depression Total Score: 0 03/08/20 23 11:18 AM EST documented as of this encounter Care Teams Supervisory It Specialist Relationship Specialty Start Date End Date Lu Estrada MD 230 [place] [address] PCP - General Family Medicine 03/27/18 documented as of this encounter
--- OUTSIDE RECORDS SUMMARY | 2024-11-24 22:44 | XMS_ITS | Encounter Summary ---
Author Organization [employer] Address [address] [facility] 7t [place] [address] Care Team Providers Care Tv News Director Name Role Phone Lu Estraad MD Primary Care Provider [phone] Reason for Visit * Reason Comments Med Refill Encounter Details Date Type Department Care Team ([facility] Contact Info) Description 03/09/2023 Refill [facility] MEDICINE [address] [place] [address] Lu Estrada MD 230 [place] [address] Social History Tobacco Use Types Packs/Day Years [...] 9:15 AM EDT Office Visit [facility] OPTOMETRY [address] [place], [place] [phone] Aziza Mckoy, OD 267 [place] [address] 12/25/2024 9:45 AM EDT Office Visit [facility] MEDICINE [address] [place] [address] Lu Estrada MD 230 [place] [address] documented as of this encounter Visit Diagnoses Not on filedocumented in this encounter Additional Health Concerns Assessment Noted Time PHQ-9 Depression Total Score: 0 03/08/20 23 11:18 AM EST documented as of this encounter Care Teams Tv News Director Relationship Specialty Start Date End Date Lu Estrada MD 230 [place] [address] PCP - General Family Medicine 03/27/18 documented as of this encounter
--- OUTSIDE RECORDS SUMMARY | 2024-11-24 22:44 | XMS_ITS | Encounter Summary ---
Author Organization [employer] Address [address] [place] [address] 7 [place] [address] Care Team Providers Care Trimmer Loader Name Role Phone Lu Estrada MD Primary Care Provider [phone] Encounter Details Date Type Department Care Team (Latest Contact Info) Description 01/01/2019 Abstract [facility] CONVERSIONS Dental, Provider, DDS Social History [...] 9:15 AM EDT Office Visit [facility] OPTOMETRY [address] [place] [address] Aziza Mckoy OD [address] [place] [address] 12/25/2024 9:45 AM EDT Office Visit [facility] MEDICINE 230 [place] [address] Lu Estrada MD 230 [place] [address] documented as of this encounter Visit Diagnoses Not on filedocumented in this encounter Care Teams Trimmer Loader Relationship Specialty Start Date End Date Lu Estrada MD [address] [place] [address] PCP - General Family Medicine 03/27/18 documented as of this encounter
--- OUTSIDE RECORDS SUMMARY | 2024-11-24 22:44 | XMS_ITS | Encounter Summary ---
Demographics Address [address] [facility] [address] [place] [address] Home Phone Work Phone Mobile Phone Email Address Preferred Language en Marital Status Single Jain Affiliation Unknown Race Other Race Ethnic Group Unknown Author Organization [employer] Address [address] [facility] 7t [place] [address] Care Team Providers Care Teacher Counselor Name Role Phone Lu Estrada MD Primary Care Provider [phone] Encounter Details Date Type Department Care Team ([facility] Contact Info) Description 03/28/2024 Orders Only [facility] CHC MED & PEDS [address] [place] [address] Elliot Antunez MD 505 [place] [address] Social History Tobacco Use Types Packs/Day Years [...] Description 12/05/2024 9:15 AM EDT Office Visit [facility] OPTOMETRY [address] [place] [address] Aziza Mckoy, OD [address] [place] [address] 12/25/2024 9:45 AM EDT Office Visit [facility] MEDICINE 230 [place] [address] Lu Estrada MD 230 [place] [address] documented as of this encounter Visit Diagnoses Not on filedocumented in this encounter Additional Health Concerns Assessment Noted Time PHQ-9 Depression Total Score: 5 01/22/20 24 3:06 PM EDT documented as of this encounter Care Teams Teacher Counselor Relationship Specialty Start Date End Date Lu Estrada MD [address] [place] [address] PCP - General Family Medicine 03/27/18 documented as of this encounter
[2024-11-24 22:47] VITALS: BP 128/96; PULSE 62; RESP 14; TEMP 36.6; O2SAT 99
[2024-11-25] MEDS: Potassium Bicarbonate/Cit AC 25 MEQ TABLET.EFF PO (01:00)
[2024-11-25] MEDS: Magnesium Hydrox/Alum Hydrox 30 ML ORAL.SUSP PO (01:00)
[2024-11-25] MEDS: Lidocaine HCl Viscous 2 % 15 ML SOLUTION MUCOUS MEM (01:00)
[2024-11-25 01:03] VITALS: BP 125/77; PULSE 67; RESP 12; TEMP 36.6; O2SAT 99
[2024-11-25 02:16] VITALS: BP 113/68; PULSE 64; RESP 23; TEMP 36.7; O2SAT 97
[2024-11-25 02:25] LABS: Appearance Urine Clear; Glucose Urine UA Negative (Negative); PH 5.5 (5.0-9.0); Specific Gravity - Urine >= 1.030 (1.005-1.025); UMIC TRIGGER UACC YES
[2024-11-25 06:33] VITALS: BP 114/77; PULSE 60; RESP 13; TEMP 36.6; O2SAT 98
[2024-11-25 07:16] VITALS: BP 114/77; PULSE 60; RESP 13; TEMP 36.6; O2SAT 98
== END 2024-11-25 07:16 | disposition home or self-care (01) ==
PROVIDERS: Physician Assistant Medical; Student in an Organized Health Care Education/Training Program; Emergency Provider Emergency Medicine
DX: R10.9 Unspecified abdominal pain (principal); S29.012A Strain of muscle and tendon of back wall of thorax, initial encounter; X58.XXXA Exposure to other specified factors, initial encounter; Y93.89 Activity, other specified; Y92.89 Other specified places as the place of occurrence of the external cause; Y99.8 Other external cause status
CPT/HCPCS: 36415; 71046; 74176; 80053; 81001; 83690; 83735; 84484; 85025; 87502; 87635; 93005; 96361; 96374; 99285; J1885

== ENCOUNTER → 2024-11-24 20:50 | Outpatient (BNV) | payer MEDICAID, SELFPAY | PROVIDERS: Visit Provider Specialist | DX: R05.9 Cough, unspecified (principal) | CPT/HCPCS: 71046 ==

== ENCOUNTER → 2024-11-24 20:51 | Outpatient (BNV) | payer MEDICAID, SELFPAY | PROVIDERS: Emergency Provider Emergency Medicine; Visit Provider Internal Medicine Cardiovascular Disease | DX: R06.02 Shortness of breath (principal) | CPT/HCPCS: 93010 ==

== ENCOUNTER → 2024-11-25 02:37 | Outpatient (BNV) | payer MEDICAID, SELFPAY | PROVIDERS: Emergency Provider Emergency Medicine; Visit Provider Radiology Diagnostic Radiology | DX: R10.12 Left upper quadrant pain (principal) | CPT/HCPCS: 74176 ==

== ENCOUNTER 2024-12-15 23:10 | Emergency (ER) | payer MEDICAID, SELFPAY ==
[2024-12-15 23:16] VITALS: BP 150/91; PULSE 85; RESP 16; TEMP 36.5; O2SAT 95
--- OUTSIDE RECORDS SUMMARY | 2024-12-16 00:01 | XMS_ITS | Encounter Summary ---
Author Organization [employer] Address [address] [place] [address] 7t [place] [address] Care Team Providers Care Drapery Estimator Name Role Phone Lu Estrada MD Primary Care Provider [phone] Reason for Visit * Reason Comments Med Refill Encounter Details Date Type Department Care Team ([facility] Contact Info) Description 04/22/2022 Refill [facility] CHC MED & PEDS [address] [place] [address] Vandana Black, ANP [address] [place] [address] Social History Tobacco Use Types Packs/Day Years [...] Type Department Care Team ([facility] Contact Info) Description 12/25/2024 9:45 AM EDT Office Visit [facility] MEDICINE 230 [place], [place] [phone] Lu Estrada MD 230 [place] [address] documented as of this encounter Visit Diagnoses Not on filedocumented in this encounter Care Teams Drapery Estimator Relationship Specialty Start Date End Date Lu Estrada MD 230 [place] [address] PCP - General Family Medicine 03/27/18 documented as of this encounter
--- OUTSIDE RECORDS SUMMARY | 2024-12-16 00:01 | XMS_ITS | Encounter Summary ---
Author Organization [employer] Address 75 [facility] 7t [place] [address] Care Team Providers Care Quality Control Inspector Name Role Phone Lu Estrada MD Primary Care Provider [phone] Reason for Visit * Reason Comments Med Refill Encounter Details Date Type Department Care Team ([facility] st Contact Info) Description 03/09/2023 Refill [facility] MEDICINE [address] [place] [address] Lorri Eduardo, 230 [place] [address] Social History Tobacco Use Types Packs/Day Years [...] Care Team (Late st Contact Info) Description 12/25/2024 9:45 AM EDT Office Visit [facility] MEDICINE 230 [place] [address] Lu Estrada MD 230 [place] [address] documented as of this encounter Visit Diagnoses Not on filedocumented in this encounter Additional Health Concerns Assessment Noted Time PHQ-9 Depression Total Score: 0 03/08/20 23 11:18 AM EST documented as of this encounter Care Teams Quality Control Inspector Relationship Specialty Start Date End Date Lu Estrada MD 230 [place] [address] PCP - General Family Medicine 03/27/18 documented as of this encounter
--- OUTSIDE RECORDS SUMMARY | 2024-12-16 00:01 | XMS_ITS | Encounter Summary ---
Demographics Address [address] [facility] [address] [place] [address] Home Phone Work Phone Mobile Phone Email Address Preferred Language en Marital Status Single Zoroastrianism Affiliation Unknown Race Other Race Ethnic Group Unknown Author Organization [employer] Address [address] [facility] 7t [place] [address] Care Team Providers Care School Bus Mechanic Name Role Phone Lu Estrada MD Primary Care Provider [phone] Encounter Details Date Type Department Care Team ([facility] Contact Info) Description 03/28/[address] [facility] CHC MED & PEDS [address] [place] [address] Elliot Antunez MD 505 [place] [address] Social History Tobacco Use Types Packs/Day Years [...] Description 12/25/2024 9:45 AM EDT Office Visit [facility] MEDICINE [address] [place] [address] Lu Estrada MD [address] [place] [address] documented as of this encounter Visit Diagnoses Not on filedocumented in this encounter Additional Health Concerns Assessment Noted Time PHQ-9 Depression Total Score: 5 01/22/20 24 3:06 PM EDT documented as of this encounter Care Teams School Bus Mechanic Relationship Specialty Start Date End Date Lu Estrada MD [address] [place] [address] PCP - General Family Medicine 03/27/18 documented as of this encounter
--- OUTSIDE RECORDS SUMMARY | 2024-12-16 00:01 | XMS_ITS | Encounter Summary ---
Author Organization [employer] Address [address] [place] [address] 7 [place] [address] Care Team Providers Care Knockup Worker Name Role Phone Lu Estrada MD Primary Care Provider [phone] Encounter Details Date Type Department Care Team (Late st Contact Info) Description 04/04/2022 Abstract [facility] ADULT DENTAL 230 [place] [address] Viet Kellogg DDS 230 [place] [address] Social History Tobacco Use Types Packs/Day Years [...] 9:45 AM EDT Office Visit [facility] MEDICINE 230 [place] [address] Lu Estrada MD 230 [place] [address] documented as of this encounter Visit Diagnoses Not on filedocumented in this encounter Care Teams Knockup Worker Relationship Specialty Start Date End Date Lu Estrada MD 230 [place] [address] PCP - General Family Medicine 03/27/18 documented as of this encounter
--- OUTSIDE RECORDS SUMMARY | 2024-12-16 00:01 | XMS_ITS | Encounter Summary ---
Author Organization [employer] Address 75 [facility] 7t [place] [address] Care Team Providers Care Station Tender Name Role Phone Lu Estrada MD Primary Care Provider [phone] Reason for Visit * Reason Onset Date Comments Letter for School/Work 04/27/2023 Encounter Details Date Type Department Care Team ([facility] Contact Info) Description 04/27/[address] [facility] MEDICINE [address] [place] [address] Lu Estrada MD [address] [place] [address] Letter for School/Work Social History Tobacco Use [...] Description 12/25/2024 9:45 AM EDT Office Visit [facility] MEDICINE [address] [place] [address] Lu Estrada MD 230 [place] [address] documented as of this encounter Visit Diagnoses Not on filedocumented in this encounter Additional Health Concerns Assessment Noted Time PHQ-9 Depression Total Score: 0 03/08/20 23 11:18 AM EST documented as of this encounter Care Teams Station Tender Relationship Specialty Start Date End Date Lu Estrada MD 230 [place] [address] PCP - General Family Medicine 03/27/18 documented as of this encounter
--- OUTSIDE RECORDS SUMMARY | 2024-12-16 00:01 | XMS_ITS | Encounter Summary ---
Author Organization [employer] Address [address] [facility] [address]t [place] [address] Care Team Providers Care Chrome Plater Helper Name Role Phone Lu Estrada MD Primary Care Provider [phone] Encounter Details Date Type Department Care Team ([facility] Contact Info) Description 05/29/2023 Abstract [facility] MEDICINE 230 [place], [place] [phone] Lu Estarda MD 230 [place], [place] [phone] Social History Tobacco Use Types Packs/Day Years [...] Office Visit [facility] MEDICINE [address] [place] [address] [phone] Lu Estrada MD [address] [place] [address] documented as of this encounter Procedures Procedure [...] documented as of this encounter Care Teams Chrome Plater Helper Relationship Specialty Start Date End Date Lu Estrada MD [address] [place] [address] [phone] PCP - General Family Medicine 03/27/18 documented as of this encounter
--- OUTSIDE RECORDS SUMMARY | 2024-12-16 00:01 | XMS_ITS | Encounter Summary ---
Author Organization [employer] Address [address] [place] [address] 7t [place] [address] Care Team Providers Care Spinner Concrete Pipe Name Role Phone Lu Estrada MD Primary Care Provider [phone] Reason for Visit * Reason Onset Date Comments Appointment Request 12/23/2022 Derm Encounter Details Date Type Department Care Team ([facility] Contact Info) Description 12/23/2022 Telephone [facility] MEDICINE 230 [place] [address] Lu Estrada MD [address] [place] [address] Appointment Request (Derm ) Social History Tobacco [...] 9:45 AM EDT Office Visit [facility] MEDICINE 230 [place], [place] [phone] Lu Estrada MD [address] [place], [place] [phone] documented as of this encounter Visit Diagnoses Not on filedocumented in this encounter Care Teams Spinner Concrete Pipe Relationship Specialty Start Date End Date Lu Estrada MD [address] [place], [place] [phone] PCP - General Family Medicine 03/27/18 documented as of this encounter
--- OUTSIDE RECORDS SUMMARY | 2024-12-16 00:01 | XMS_ITS | Encounter Summary ---
Demographics Address [address] [facility] [address] [place] [address] Home Phone Work Phone Mobile Phone Email Address Preferred Language en Marital Status Single Restoration Affiliation Unknown Race Other Race Ethnic Group Unknown Author Organization [employer] Address [address] [facility] [address] 7t [place] [address] Care Team Providers Care Land Planner Name Role Phone Lu Estrada MD Primary Care Provider [phone] Reason for Visit * Reason Comments Med Refill Encounter Details Date Type Department Care Team ([facility] Contact Info) Description 03/09/2023 Refill [facility] CHC MED & PEDS [address] [place] [address] Vandana Black, ANP 230 [place] [address] Social History Tobacco Use Types Packs/Day Years [...] 9:45 AM EDT Office Visit [facility] MEDICINE 230 [place] [address] Lu Estrada MD [address] [place] [address] documented as of this encounter Visit Diagnoses Not on filedocumented in this encounter Additional Health Concerns Assessment Noted Time PHQ-9 Depression Total Score: 0 03/08/20 23 11:18 AM EST documented as of this encounter Care Teams Land Planner Relationship Specialty Start Date End Date Lu Estrada MD 230 [place] [address] PCP - General Family Medicine 03/27/18 documented as of this encounter
--- OUTSIDE RECORDS SUMMARY | 2024-12-16 00:01 | XMS_ITS | Encounter Summary ---
Author Organization [employer] Address [address] [place] [address] 7 [place] [address] Care Team Providers Care Attendant Honor Bar Name Role Phone Lu Estrada MD Primary Care Provider [phone] Encounter Details Date Type Department Care Team (Latest Contact Info) Description 07/08/2020 Abstract [facility] CONVERSIONS Dental, Provider, DDS Social [...] Description 12/25/2024 9:45 AM EDT Office Visit [facility] MEDICINE [address] [place] [address] Lu Estrada MD [address] [place] [address] documented as of this encounter Visit Diagnoses Not on filedocumented in this encounter Care Teams Attendant Honor Bar Relationship Specialty Start Date End Date Lu Estrada MD [address] [place] [address] PCP - General Family Medicine 03/27/18 documented as of this encounter
--- OUTSIDE RECORDS SUMMARY | 2024-12-16 00:01 | XMS_ITS | Encounter Summary ---
Author Organization [employer] Address [address] [facility] [address] 7t [place] [address] Care Team Providers Care Forest Landscape Ecology Professor Name Role Phone Lu Estrada MD Primary Care Provider [phone] Reason for Visit * Reason Comments Med Refill Encounter Details Date Type Department Care Team ([facility] Contact Info) Description 03/09/2023 Refill [facility] MEDICINE [address] [place] [address] Lu Estrada MD [address] [place] [address] Social History Tobacco Use Types Packs/Day Years [...] Visit [facility] MEDICINE [address] [place] [address] Lu Estrada MD [address] [place] [address] documented as of this encounter Visit Diagnoses Not on filedocumented in this encounter Additional Health Concerns Assessment Noted Time PHQ-9 Depression Total Score: 0 03/08/20 23 11:18 AM EST documented as of this encounter Care Teams Forest Landscape Ecology Professor Relationship Specialty Start Date End Date Lu Estrada MD [address] [place] [address] PCP - General Family Medicine 03/27/18 documented as of this encounter
--- OUTSIDE RECORDS SUMMARY | 2024-12-16 00:01 | XMS_ITS | Encounter Summary ---
Author Organization [employer] Address [address] [place] [address] 7t [place] [address] Care Team Providers Care Tape Calender Name Role Phone Lu Estrada MD Primary Care Provider [phone] Encounter Details Date Type Department Care Team ([facility] Contact Info) Description 03/18/2022 Abstract [facility] ADULT DENTAL [address] [place] [address] Viet Kellogg DDS [address] [place] [address] Social History Tobacco Use Types Packs/Day Years [...] Upcoming Encounters Date Type Department Care Team ([facility] Contact Info) Description 12/25/2024 9:45 AM EDT Office Visit [facility] MEDICINE [address] [place] [address] Lu Estrada MD [address] [place] [address] documented as of this encounter Visit Diagnoses Not on filedocumented in this encounter Care Teams Tape Calender Relationship Specialty Start Date End Date Lu Estrada MD [address] [place] [address] PCP - General Family Medicine 03/27/18 documented as of this encounter
--- OUTSIDE RECORDS SUMMARY | 2024-12-16 00:01 | XMS_ITS | Clinical Summary ---
Author Organization [employer] Address [address] [place] [address] 7t [place] [address] Care Team Providers Care Glazier Stained Glass Name Role Phone Lu Estrada MD Primary Care Provider [phone] Allergies No known active allergies Medications hydrocortisone [...] Feb 2024 was unremarkable - since her [employer] surgery; advised to contact her surgeon or [facility] Atypical chest pain 07/13/2022 Enlarged tonsils 07/13/2022 [...] Plan (04/25/2022 4:36 PM EST): -followed by [facility] GI continue famotidine -continue pantoprazole -avoid NSAIDS IBS (irritable bowel syndrome) 04/21/2022 Assessment & Plan (01/28/2024 4:45 PM EST): - followed by [facility] GI last seen in May 2023 - s/p EGD and colonoscopy -GI prescribed dicyclomine, simethicone, and Creon, but she is not taking it; recommended to discuss with GI specialist before discontinuing it -work on stress reduction Assessment & Plan (05/05/2023 6:42 AM EST): - followed by [facility] GI last seen [...] (04/29/2022 6:27 PM EST): - followed by [facility] GI last seen [...] 4:48 PM EST): - previously seen by [facility] Clinician. - patient is not interested in behavioral health service -Pt was recommended to improve sleepy hygien and exercise during the day instead of taking medications Assessment & Plan (04/25/2022 4:35 PM EST): Was seen by [facility] Clinician. -Will check status of f/u. -Pt was recommended to improve sleepy hygien and exercise during the day instead of taking medications Dislocation of acromioclavicular joint 7 Migraine 05/04/2016 Assessment & Plan (04/28/2024 4:12 PM EST): -seen by [facility] neurologist in Apr 2019 -seen by [facility] neurology in Dec 2022 -04/23/22 Head [...] Plan (01/28/2024 4:50 PM EST): -seen by [facility] neurologist in Apr 2019 -seen by [facility] neurology in Dec 2022 -04/23/22 Head [...] Plan (05/05/2023 6:51 AM EST): -seen by [facility] neurologist in Apr 2019 -seen by [facility] neurology in Dec 2022 -04/23/22 Head [...] f/u appt -most recent ED visit for ESPIONSA in 04/23/22, given oxycodone -04/23/[address] [...] Encounters Date Type Department Care Team Description 12/05/2024 9:15 AM EDT Office Visit [facility] OPTOMETRY [address] [place] [address] Aziza Mckoy, MIN Hypermetropia, bilateral (Primary Dx) 12/05/2024 Travel 11/25/2024 Orders Only GENERIC EXTERNAL DATA DEPARTMENT Provider, Generic External Data 11/24/2024 Orders Only [facility] External Provider, [facility] 11/21/2024 Orders Only GENERIC EXTERNAL DATA DEPARTMENT [...] Description 12/25/2024 9:45 AM EDT Office Visit [facility] MEDICINE [address] [place] [address] Lu Estrada MD [address] [place] [address] Health Maintenance Due Date Last Done Comments Disability Screening 1985 Family Planning (PISQ) 2002 HPV Vaccines (1 - 3-dose series) 2002 Dental Oral Exam 03/10/2024 09/08/2023, 03/02/2022 Dental X-Ray: Bitewings 09/08/2024 09/08/2023, 03/02 Dental Prophylaxis 09/10/2024 03/11/2024, 0 09/08/2023, 09/22/2022, Additional history exists Influenza Vaccine (#1) 2024 , 03/08/2023, 04/25/2022, Additional history exists Alcohol/Substance Use Screening 01/21/2025 01/22/2024 Depression Screening 01/21/2025 01/22/2024, 10/28/20 24 SDOH Screening 01/21/2025 01/22/2024 Dental X-Ray: [...] Date/Time Associated Diagnosis Comments CT ABDOMEN PELVIS WO CONTRAST Routine 11/25/2024 4:50 AM EDT URINALYSIS, COMPLETE, WITH REFLEX TO CULTURE Routine 11/25/2024 2:17 AM EDT CULTURE, URINE, ROUTINE Routine 11/21/2024 11:24 AM EDT CHLAMYDIA/N. GONORRHOEAE RNA, TMA, UROGENITAL Routine 11/21/2024 11:24 AM EDT PROPHYLAXIS - ADULT Routine 03/11/2024 [...] Health Maintenance Results * CT Abdomen Pelvis w/o Contrast (11/25/2024 4:50 AM EDT) Anatomical Region Laterality Modality Body, Pelvis, Abdomen Computed T omography 11/25/2024 4:50 AM EDT Narrative 11/25/2024 4:51 AM EDT [address] [address] [address] Scan Report Signed Patient: Shruti Winters MR#: [id number] : 1985 Acct:[id number] Age/Sex: 39 / F ADM Date: 11/24/24 Loc: .ED Attending Dr: Ordering Physician: Mandi Branch DO Date of Service: 11/25/24 Procedure(s): CT abdomen pelvis wo IV con Accession Number(s): [id number] cc: Mandi Branch DO; [facility] Report Number: [id number]: Total DLP = 629.00 mGy-cm CLINICAL HISTORY: left flank pain CT abdomen and pelvis without contrast Comparison: CT/SR - CT ABDOMEN PELVIS W IV CON - 04/30/24 04:19 EST Findings: The lung bases are clear. The liver, gallbladder, pancreas, spleen, adrenal glands, and kidneys are unremarkable. There is no urolithiasis or hydronephrosis. There are several phleboliths in the pelvis. The appendix is normal. The remainder of the gastrointestinal tract is unremarkable. There are no enlarged lymph nodes. The aorta is normal in diameter. Uterus and adnexa are grossly unremarkable. The bladder is unremarkable. There is no fracture or suspicious lytic or sclerotic lesion. IMPRESSION: No acute abnormality in the abdomen or pelvis. This document has been electronically signed by: Keaton Gaxiola MD on 11/25/2024 04:50:07 Dictated By: Keaton Gaxiola MD Signed By: <Electronically signed by Keaton Gaxiola MD in OV> 11/25/24449 DD/ 9 TD/TT: 11/25/24449 Blower And Compressor Assembler: Procedure Note Donotuseinterpreter, Image - 11/25/[address] [place] [address] [address] Scan Report Signed Patient: Ajay Winters#: [id number] : 1985Acct:[id number] Age/Sex: 39 / FADM Date: 11/24/24 Loc: .ED Attending Dr: Ordering Physician: Mandi Branch DO Date of Service: 11/25/24 Procedure(s): CT abdomen pelvis wo IV con Accession Number(s): [id number] cc: Mandi Branch DO; [facility] Report Number: [id number]: Total DLP = 629.00 mGy-cm CLINICAL HISTORY: left flank pain CT abdomen and pelvis without contrast Comparison: CT/SR - CT ABDOMEN PELVIS W IV CON - 04/30/24 04:19 EST Findings: The lung bases are clear. The liver, gallbladder, pancreas, spleen, adrenal glands, and kidneys are unremarkable. There is no urolithiasis or hydronephrosis. There are several phleboliths in the pelvis. The appendix is normal. The remainder of the gastrointestinal tract is unremarkable. There are no enlarged lymph nodes. The aorta is normal in diameter. Uterus and adnexa are grossly unremarkable. The bladder is unremarkable. There is no fracture or suspicious lytic or sclerotic lesion. IMPRESSION: No acute abnormality in the abdomen or pelvis. This document has been electronically signed by: Keaton Gaxiola MD on 11/25/2024 04:50:07 Dictated By: Keaton Gaxiola MD Signed By: <Electronically signed by Keaton Gaxiola MD in OV> 11/25/24449 DD/ 9 TD/TT: 11/25/24449 Blower And Compressor Assembler: [facility] External Provider IMG CT PROCEDURES Final Result * (ABNORMAL) Urinalysis, Complete, with Reflex to Culture (11/25/2024 2:17 AM EDT) Color Urine Yellow [facility] Appearance Urine Clear [facility] PH 5.5 5.0 - 9.0 [facility] Glucose Urine UA Negative Negative mg/dL [facility] Urine Blood Moderate (2+)(A) Negative [facility] Specific [place] - Urine >=1.030(H) 1.005 - 1.025 [facility] Urine Protein Trace Neg-Trace mg/dL [facility] Urine Ketones Negative Negative mg/dL [facility] Nitrite Urine Negative Negative [facility] Leukocyte Esterase Urine Negative Negative [facility] RBC Urine >20(A) 0 - 2 /HPF [facility] Urine WBC 0-5 0 - 5 /HPF [facility] Urine Squamous Epithelial Cell 0-2 0 - 2 /HPF [facility] Urine Bacteria None Seen None Seen [facility] Hyaline Casts, Urine 0-2 0 - 2 /LPF [facility] 11/25/2024 2:17 AM EDT 11/25/2024 2:22 AM EDT Narrative [facility] - 11/25/2024 2:31 AM EDT [id number], Clean Catch us Generic External Data Provider LAB URINE ORDERAB LES Final Result [facility] [address] [place] [address] [phone] * Chlamydia/N. Gonorrhoeae RNA, TMA, Urogenitial (11/21/2024 11:24 AM EDT) CT PCR NOT DETECTED Not Detect. [facility] Comment:A not detected test result [...] NG PCR NOT DETECTED Not Detect. [facility] Comment:A not detected test result [...] GENERAL ORDERABLES Final Result Performing Organization Address [facility]/ZIP Co de Phone Number [facility] [address] [place] [phone] * Culture, Urine, Routine (11/21/2024 11:24 AM EDT) Urine Urine specimen obtained by clean catch procedure / Unknown 11/21/2024 11:24 AM EDT 11/21/2024 2:14 PM EDT Comment:UACC Narrative [facility] - 11/22/2024 9:11 AM EDT Urine Culture No growth. Specimen Source: Urine clean catch Generic External Data Provider LAB MICROBIOLOGY - GENERAL ORDERABLES Final Result Performing Organization Address [facility] Co de Phone Number [facility] [address] [place] [phone] * (ABNORMAL) Lipid Panel with Reflex to Direct LDL (01/22/2024 3:20 PM EDT) Triglycerides 88 <150 mg/dL [facility] Comment:Desirable Triglyceri de: less than 150 mg/dLBorderline High Triglyceride 150-199 mg/dLHigh Triglyceride: 200-499 mg/dLVery High Triglyceride: greater than or equal to 5OO mg/dL Cholesterol 183 <200 mg/dL [facility] Comment:Desirable Cholestero l: less than 200 mg/dLBorderline High Cholesterol: 200-239 mg/dLHigh Cholesterol: greater than 239 mg/dL LDL Cholesterol Calculated 126(H) <100 mg/dL [facility] Comment:Desirable LDL: less than 100 mg/dLNear Optimal/Above Optimal LDL: 110- 129 mg/dLBorderline High LDL: 130-159 mg/dLHigh LDL: 160-189 mg/dLVery High LDL: greater than or equal to 190 mg/dL HDL Cholesterol 40(L) >40 mg/dL [facility] Comment:Desirable HDL: great er than 40 mg/dL Note: This HDL assay may give artificially low results in patients with liver disease. Blood 01/22/2024 3:20 PM EDT 01/22/2024 4:05 PM EDT us Lu Estrada MD LAB BLOOD ORDERABLES Final Resul t [facility] [address] [place] [address] [phone] * ThinPrep Imaging Pap and HPV mRNA E6/E7 with Reflex to HPV 16,18/45 (12/05/2023 12:00 AM EDT) HPV 16 RNA [facility] HPV 18/45 RNA [facility] HPV nRNA E6/E7 Not Detected Not Detected [facility] Comment:Methodology: Transcr iption-Mediated AmplificationThis assay detects E6/E7 viral messenger RNA (mRNA) from 14high-risk HPV types (16,18,31,33,35,39,45,51,52,56,58,59,66,68).Cervical sources are required for HPV testing.If a vaginal source from a patient who has had atotal hysterectomy with removal of cervix wassubmitted, please contact the testing laboratoryfor alternative testing options.For additional information, please refer tohttp://education.[place] [employer] [place]/faq/ATJ755q3(This link if provided for information/educational purposes only.)THIS TEST WAS PERFORMED AT:[facility] [place] [phone] MILLS MD SOURCE: SEE NOTE [facility] Comment:None given Report Status: [facility] Clinical Information: SEE NOTE [facility] Comment:None given LMP: SEE NOTE [facility] Comment:NONE GIVEN Prev. PAP: SEE NOTE [facility] Comment:NONE GIVEN Prev. BX: SEE NOTE [facility] Comment:NONE GIVEN Statement Of Adequacy: SEE NOTE [facility] Comment:Satisfactory for tahmina luation.Endocervical/transformation zone componentpresent. General Categorization: [facility] Interpretation/Result: SEE NOTE [facility] Comment:Cytology Results: Ne gative for intraepitheliallesion or malignancy. Cytology Comment SEE NOTE [facility] Comment:This Pap test has be en evaluated with computerassisted technology. Associate Justice: SEE NOTE [facility] Comment:[place], CT(ASCP)CT scre ening location: [place] [address] Review Associate Justice: [facility] Pathologist [facility] PAP Infection [facility] See Note SEE NOTE [facility] Comment:EXPLANATORY NOTE:The Pap is a screening test for cervical cancer. It isnot a diagnostic test and is subject to false negativeand false positive results. It is most reliable when asatisfactory sample, regularly obtained, is submittedwith relevant clinical findings and history, and whenthe Pap result is evaluated along with historic andcurrent clinical information. 12/05/2023 12/05/2023 Narrative [facility] - 12/11/2023 1:12 PM EDT SEE SCANNED RESULTS IN EMR us Generic External Data Provider LAB PATHOLOGY ORD ERABLES Final Result [facility] [address] [place] [address] [phone] * HEPATITIS C AB W/REFL TO HCV RNA, QN, PCR (03/16/2020 4:32 PM EST) HEPATITIS C ANTIBODY NON-REACT CORA NON-REACT CORA [facility] INDEX 0.02 <1.00 [facility] Comment: HCV antibody was non-reactive. There is no laboratory evidence of HCV infection. In most cases, no further action is required. However, if recent HCV exposure is suspected, a test for HCV RNA (test code 39100) is suggested. For additional information please refer to http://iCentera.[employer]bird.Mysafeplace/faq/CCO28d4 (This link is being provided for informational/ educational purposes only.) 03/16/2020 4:32 PM EST Lu Estrada MD HISTORICAL/NON ORDERABLE LABS Fi nal Result Performing Organization Address [facility] Co de Phone Number [facility] [address] * HIV 1/2 ANTIGEN/ANTIBODY,FOURTH GENERATION W/RFL (03/16/2020 4:32 PM EST) HIV-1/2 ANTIGEN AND ANTIBODIES, 4TH GENERATION W/ REFLEX NON-REACT CORA NON-REACT CORA [facility] Comment: HIV-1 antigen and [...] purpose. For additional information please refer to http://iCentera.Storybird.Mysafeplace/faq/YAD948 (This link is being provided for informational/ educational purposes only.) The performance of this assay has not been clinically validated in patients less than 2 years old. 03/16/2020 4:32 PM EST Lu Estrada MD LAB BLOOD ORDERABLES Final Resul t Performing Organization Address [facility] Co de Phone Number [facility] [address] from Last 3 Months or Most Recently Relevant to Health Maintenance Insurance [facility] C3 DENTAL-[facility] MEDICAID STAND ADULT Care Teams Glazier Stained Glass Relationship Specialty Start Date End Date Lu Estrada MD [address] [place] [address] PCP - General Family Medicine 03/27/18
--- OUTSIDE RECORDS SUMMARY | 2024-12-16 00:01 | XMS_ITS | Encounter Summary ---
Author Organization [employer] Address [address] [place] [address] 7t [place] [address] Care Team Providers Care Petrophysicist Name Role Phone Lu Estrada MD Primary Care Provider [phone] Encounter Details Date Type Department Care Team ([facility] Contact Info) Description 10/17/2022 Abstract [facility] ADULT DENTAL [address] [place], [place] [phone] Heidi Ennis [address] [place] [address] Social History Tobacco Use Types Packs/Day Years [...] Date Type Department Care Team ([facility] Contact Info) Description 12/25/2024 9:45 AM EDT Office Visit [facility] MEDICINE [address] [place], [place] [phone] Lu Estrada MD [address] [place] [address] documented as of this encounter Visit Diagnoses Not on filedocumented in this encounter Care Teams Petrophysicist Relationship Specialty Start Date End Date Lu Estrada MD [address] [place] [address] PCP - General Family Medicine 03/27/18 documented as of this encounter
--- OUTSIDE RECORDS SUMMARY | 2024-12-16 00:01 | XMS_ITS | Encounter Summary ---
Author Organization [employer] Address [address] [place] [address] 7t [place] [address] Care Team Providers Care Rate Analyst Name Role Phone Lu Estrada MD Primary Care Provider [phone] Encounter Details Date Type Department Care Team ([facility] Contact Info) Description 10/17/2022 Abstract [facility] ADULT DENTAL [address] [place], [place] [phone] Heidi Ennis [address] [place] [address] Social History Tobacco Use Types Packs/Day Years [...] Type Department Care Team ([facility] Contact Info) Description 12/25/2024 9:45 AM EDT Office Visit [facility] MEDICINE [address] [place], [place] [phone] Lu Estrada MD [address] [place] [address] documented as of this encounter Visit Diagnoses Not on filedocumented in this encounter Care Teams Rate Analyst Relationship Specialty Start Date End Date Lu Estrada MD [address] [place] [address] PCP - General Family Medicine 03/27/18 documented as of this encounter
--- OUTSIDE RECORDS SUMMARY | 2024-12-16 00:01 | XMS_ITS | Encounter Summary ---
Author Organization [employer] Address [address] [place] [address] 7t [place] [address] Care Team Providers Care Chief Information Security Officer Name Role Phone Lu Estrada MD Primary Care Provider [phone] Reason for Referral * Consultation (Routine) - Authorized Specialty Diagnoses / Procedures Referred By Amanda mead Referred To Contact Orthopaedic Surgery Diagnoses Ganglion cyst of wrist, right Lu Estrada MD [address] [place] [address] Phone: tel: fax: [facility] Referral ID Status Reason Start Date Expiration Date Visits Requested Visits Authorized [id number] Authorized Specialty Services Required 06/25/2024 06/25/2025 12 12 Encounter Details Date Type Department Care Team (Late st Contact Info) Description 06/24/2024 Orders Only [facility] MEDICINE [address] [place] [phone] Lu Estrada MD [address] [place], [place] [phone] Ganglion cyst of wrist, right (Primary Dx) [...] Description 12/25/2024 9:45 AM EDT Office Visit [facility] MEDICINE [address] [place], [place] [phone] Lu Estrada MD [address] [place] [address] Scheduled Referrals Name Type Priority Associated Diagnoses [...] documented as of this encounter Care Teams Chief Information Security Officer Relationship Specialty Start Date End Date Lu Estrada MD [address] [place] [address] PCP - General Family Medicine 03/27/18 documented as of this encounter
--- OUTSIDE RECORDS SUMMARY | 2024-12-16 00:01 | XMS_ITS | Encounter Summary ---
Author Organization [employer] Address [address] [place] [address] 7 [place] [address] Care Team Providers Care Accordion Repairer Name Role Phone Lu Estrada MD Primary Care Provider [phone] Encounter Details Date Type Department Care Team (Late Contact Info) Description 02/23/2022 Abstract [facility] ADULT DENTAL [address] [place] [address] Dental, Provider, DDS Social History Tobacco Use [...] Upcoming Encounters Date Type Department Care Team ([facility] Contact Info) Description 12/25/2024 9:45 AM EDT Office Visit [facility] MEDICINE [address] [place] [address] Lu Estrada MD [address] [place] [address] documented as of this encounter Procedures Procedure Name Priority Date/Time Associated Diagnosis Comments 14 O AMALGAM FILLING Routine 02/23/2022 12:00 AM EST documented in this encounter Visit Diagnoses Not on filedocumented in this encounter Care Teams Accordion Repairer Relationship Specialty Start Date End Date Lu Estrada MD [address] [place] [address] PCP - General Family Medicine 03/27/18 documented as of this encounter
--- OUTSIDE RECORDS SUMMARY | 2024-12-16 00:01 | XMS_ITS | Encounter Summary ---
Demographics Address [address] [facility] [address] [place] [address] Home Phone Work Phone Mobile Phone Email Address Preferred Language en Marital Status Single Jain Affiliation Unknown Race Other Race Ethnic Group Unknown Author Organization [employer] Address [address] [facility] 7t [place] [address] Care Team Providers Care Market Sales Manager Name Role Phone Lu Estrada MD Primary Care Provider [phone] Reason for Visit * Reason Comments Med Refill Encounter Details Date Type Department Care Team ([facility] st Contact Info) Description 06/18/2022 Refill [facility] [address] [place] [address] aVndana Black, ANP [address] [place] [address] Social History Tobacco Use Types Packs/Day Years [...] Description 12/25/2024 9:45 AM EDT Office Visit [facility] [address] [place], [place] [phone] Lu Estrada MD [address] [place], [place] [phone] documented as of this encounter Visit Diagnoses Not on filedocumented in this encounter Care Teams Market Sales Manager Relationship Specialty Start Date End Date Lu Estrada MD [address] [place] [address] [phone] PCP - General Family Medicine 03/27/18 documented as of this encounter
--- OUTSIDE RECORDS SUMMARY | 2024-12-16 00:01 | XMS_ITS | Encounter Summary ---
Author Organization [employer] Address [address] [facility] 7t [place] [address] Care Team Providers Care Aligner Typewriter Name Role Phone Lu Estrada MD Primary Care Provider [phone] Reason for Visit * Reason Comments Med Refill Encounter Details Date Type Department Care Team ([facility] st Contact Info) Description 05/01/2023 Refill [facility] [address] [place] [address] Lorri Eduardo, [address] [place] [address] Social History Tobacco Use Types Packs/Day Years [...] Description 12/25/2024 9:45 AM EDT Office Visit [facility] [address] [place] [address] Lu Estrada MD [address] [place] [address] documented as of this encounter Visit Diagnoses Not on filedocumented in this encounter Additional Health Concerns Assessment Noted Time PHQ-9 Depression Total Score: 0 03/08/20 23 11:18 AM EST documented as of this encounter Care Teams Aligner Typewriter Relationship Specialty Start Date End Date Lu Estrada MD [address] [place] [address] PCP - General Family Medicine 03/27/18 documented as of this encounter
--- OUTSIDE RECORDS SUMMARY | 2024-12-16 00:01 | XMS_ITS | Encounter Summary ---
Author Organization [employer] Address [address] [facility] 7t [place] [address] Care Team Providers Care Harp Action Assembler Name Role Phone Lu Estrada MD Primary Care Provider [phone] Reason for Visit * Reason Onset Date Comments Appointment 07/05/2022 Encounter Details Date Type Department Care Team ([facility] st Contact Info) Description 07/05/2022 Telephone [facility] [address] [place] [address] Raymon, Heidi [address] [place] [address] Appointment Social History Tobacco Use Types Packs/Day [...] Description 12/25/2024 9:45 AM EDT Office Visit [facility] [address] [place], [place] [phone] Lu Estrada MD [address] [place], [place] [phone] documented as of this encounter Visit Diagnoses Not on filedocumented in this encounter Care Teams Harp Action Assembler Relationship Specialty Start Date End Date Lu Estrada MD [address] [place] [address] PCP - General Family Medicine 03/27/18 documented as of this encounter
--- OUTSIDE RECORDS SUMMARY | 2024-12-16 00:01 | XMS_ITS | Encounter Summary ---
Author Organization [employer] Address [address] [place] [address] 7 [place] [address] Care Team Providers Care Town Marshal Name Role Phone Lu Estrada MD Primary Care Provider [phone] Reason for Visit * Reason Comments Med Refill Encounter Details Date Type Department Care Team (Late Contact Info) Description 06/08/2022 Refill [facility] [address] [place] [address] [phone] Danny Lundy MD [address] [place] [address] [phone] Social History Tobacco Use Types Packs/Day Years [...] Department Care Team (Late Contact Info) Description 12/25/2024 9:45 AM EDT Office Visit [facility] [address] [place] [phone] Lu Estrada MD [address] [place] [address] [phone] documented as of this encounter Visit Diagnoses Not on filedocumented in this encounter Care Teams Town Marshal Relationship Specialty Start Date End Date Lu Estrada MD [address] [place] [phone] PCP - General Family Medicine 03/27/18 documented as of this encounter
--- OUTSIDE RECORDS SUMMARY | 2024-12-16 00:01 | XMS_ITS | Encounter Summary ---
Author Organization [employer] Address [address] [place] [address] 7t [place] [address] Care Team Providers Care Noc Engineer Name Role Phone Lu Estrada MD Primary Care Provider [phone] Encounter Details Date Type Department Care Team (Latest Contact Info) Description 01/01/2019 Abstract [facility] CONVERSIONS Dental, Provider, DDS Social History [...] Description 12/25/2024 9:45 AM EDT Office Visit [facility] MED[facility] [address] [place] [address] Lu Estrada MD [address] [place] [address] documented as of this encounter Visit Diagnoses Not on filedocumented in this encounter Care Teams Noc Engineer Relationship Specialty Start Date End Date Lu Estrada MD [address] [place], [place] [phone] PCP - General Family Medicine 03/27/18 documented as of this encounter
--- OUTSIDE RECORDS SUMMARY | 2024-12-16 00:01 | XMS_ITS | Encounter Summary ---
Author Organization [employer] Address [address] [place] [address] 7 [place] [address] Care Team Providers Care Tube Balancer Name Role Phone Lu Estrada MD Primary Care Provider [phone] Encounter Details Date Type Department Care Team ([facility] Contact Info) Description 04/19/2022 Orders Only [facility] MED[facility] [address] [place] [address] [phone] Lu Estrada MD [address] [place] [address] [phone] Social History Tobacco Use Types Packs/Day Years [...] EDT Office Visit [facility] [address] [place] [address] [phone] Lu Estrada MD [address] [place] [address] [phone] documented as of this encounter Visit Diagnoses Not on filedocumented in this encounter Care Teams Tube Balancer Relationship Specialty Start Date End Date Lu Estrada MD [address] [place] [address] PCP - General Family Medicine 03/27/18 documented as of this encounter
--- OUTSIDE RECORDS SUMMARY | 2024-12-16 00:01 | XMS_ITS | Encounter Summary ---
Demographics Address [address] [facility] [address] [place] [address] Home Phone Work Phone Mobile Phone Email Address Preferred Language en Marital Status Single Yazidi Affiliation Unknown Race Other Race Ethnic Group Unknown Author Organization [employer] Address [address] [facility] 7t [place] [address] Care Team Providers Care Color Specialist Name Role Phone Lu Estrada MD Primary Care Provider [phone] Encounter Details Date Type Department Care Team ([facility] st Contact Info) Description 04/30/2024 Orders Only [facility] [address] [place] [address] Lu Estrada MD 230 [place], [place] [phone] Abnormal CT of the abdomen (Primary Dx); [...] Description 12/25/2024 9:45 AM EDT Office Visit [facility] [address] [place], [place] [phone] Lu Estrada MD [address] [place] [address] documented as of this encounter Procedures Procedure Name Priority Date/Time Associated Diagnosis Comments BI MAMMOGRAM DIAGNOSTIC TOMOSYNTHESIS BILATERAL Routine 06/07/2024 10:00 AM EDT documented in this encounter Results * BI Mammogram Diagnostic Tomosynthesis Bilateral (06/07/2024 10:00 AM EDT) Anatomical Region Laterality Modality Breast Bilateral Mammography 06/07/2024 10:0 0 AM EDT Narrative 06/07/2024 11:42 AM EDT [facility] [address] [place] [address] Mammography Report Signed Patient: Shruti Winters MR#: [id number] : 1985 Acct:[id number] Age/Sex: 39 / F ADM Date: 06/07/24 Loc: HO.MAMMO Attending Dr: Lu Estrada MD Ordering Physician: Lu Estrada MD Results: 1Negative Date of Service: 06/07/24 Follow Up: Mammo at 42 or e arlier if clinically needed Procedure(s): MM tomosynthesis diagnostic BI Accession Number(s): [id number] cc: Lu Estrada MD EXAMINATION: MM DIAGNOSTIC [...] 06/07/24 1139 DD/ 1000 TD/TT: 06/07/24 1018 Tobacco Flavorer: Procedure Note Donotuseinterpreter, Image - 06/07/2024 [facility] [address] [place], [place] [address] Mammography Report Signed Patient: Ajay Winters#: [id number] : 1985Acct:[id number] Age/Sex: 39 / FADM Date: 06/07/24 Loc: HO.MAMMO Attending Dr: Lu Estrada MD Ordering Physician: Lu Estrada MDResults: 1Negative Date of Service: 06/07/24Follow Up: Mammo at 42 or e arlier if clinically needed Procedure(s): MM tomosynthesis diagnostic BI Accession Number(s): [id number] cc: Lu Estrada MD EXAMINATION: MM DIAGNOSTIC [...] 06/07/24 1139 DD/ 1000 TD/TT: 06/07/24 1018 Tobacco Flavorer: Lu Estrada MD IMG BI PROCEDURES Final [...] documented as of this encounter Care Teams Color Specialist Relationship Specialty Start Date End Date Lu Estrada MD [address] [place] [address] PCP - General Family Medicine 03/27/18 documented as of this encounter
--- OUTSIDE RECORDS SUMMARY | 2024-12-16 00:01 | XMS_ITS | Encounter Summary ---
Author Organization [employer] Address [address] [place] [address] 7 [place] [address] Care Team Providers Care Aerial Survey Technician Name Role Phone Lu Estrada MD Primary Care Provider [phone] Reason for Visit * Reason Comments Med Refill Encounter Details Date Type Department Care Team ([facility] Contact Info) Description 04/19/[address] [facility] [address] [place], [place] [phone] Leatha Chong MD [address] [place] [address] [phone] Primary hypertension (Primary Dx) Social History Tobacco [...] 12/25/2024 9:45 AM EDT Office Visit [facility] [address] [place], [place] [phone] Lu Estrada MD [address] [place], [place] [phone] documented as of this encounter Visit Diagnoses Diagnosis Primary hypertension- Primary Unspecified essential hypertension documented in this encounter Care Teams Aerial Survey Technician Relationship Specialty Start Date End Date Lu Estrada MD [address] [place] [address] PCP - General Family Medicine 03/27/18 documented as of this encounter
--- NOTE | 2024-12-16 01:07 | ED.LOWEXIN ---
HPI - Extremity Injury (Lower) General Chief Complaint: Extremity Injury, Lower Stated Complaint: Toe/foot pain Time Seen by Provider: 12/16/24 01:03 Source: patient Mode of arrival: ambulatory Limitations: no limitations History of Present Illness ED Provider: Dr. Jennifer Santillan HPI Narrative: Patient comes to the emergency room complaining of a lesion in her right foot between the 3rd and 4th toes. Patient states it is itchy, it is always what looking, whitish membrane. Patient has been applying smui-pmd-ubxjati antibiotic with no relief for several days. Related Data Home Medications ?Medication ?Instructions ?Recorded ?Confirmed albuterol sulfate 90 mcg/actuation 1 inh inhalation QID 01/15/20 07/19/24 aerosol inhaler (Proventil HFA) wxbxvrw-scjmhmnwrwmsb-zgphlzoy 250 1 tab PO Q4-6H PRN Headache 01/15/20 07/19/24 mg-250 mg-65 mg tablet (Excedrin Migraine) loratadine 10 mg tablet (Allergy 10 mg PO DAILY 01/15/20 07/19/24 Relief (loratadine)) montelukast 10 mg tablet 10 mg PO BEDTIME 01/15/20 07/19/24 (Singulair) cholecalciferol (vitamin D3) 50 50 mcg PO DAILY 03/16/22 07/19/24 mcg (2,000 unit) capsule (Vitamin D3) lisinopril 10 mg tablet 10 mg PO DAILY 03/16/22 07/19/24 Previous Rx's ?Medication ?Instructions ?Recorded wwhppzolvm-qvijjspsvnbar-upsfezef 1 cap PO Q8H PRN pain #3 caps 08/09/21 50 mg-300 mg-40 mg capsule (Fioricet) acetaminophen 500 mg tablet 1,000 mg (2 x 500 mg) PO QID PRN 08/25/22 pain #30 tabs propranolol 60 mg capsule,24 60 mg PO BEDTIME #90 caps 12/19/22 hr,extended release polyethylene glycol 3350 17 17 g PO DAILY #510 grams 06/02/23 gram/dose oral powder (Miralax) cyclobenzaprine 10 mg tablet 10 mg PO TID #10 tabs 01/13/24 naproxen 500 mg tablet (Naprosyn) 500 mg PO BID #20 tabs 01/13/24 ibuprofen 600 mg tablet 600 mg PO Q6H PRN fever or pain 02/19/24 #30 tabs acetaminophen 500 mg tablet 500 mg PO Q6H PRN fever or pain 04/30/24 (Tylenol Extra Strength) #14 tabs cyclobenzaprine 5 mg tablet 5 mg PO Q8H PRN pain (scale score 04/30/24 7-10) 5 days #14 tabs lidocaine 5 % topical patch 1 patch topical DAILY PRN pain #30 04/30/24 (Lidoderm) ea methocarbamol 500 mg tablet 1,000 mg (2 x 500 mg) PO Q8H PRN 05/09/24 pain, moderate #24 tabs loratadine 10 mg tablet 10 mg PO DAILY PRN allergic 06/18/24 (Allerclear) symptoms #30 tabs ondansetron 4 mg disintegrating 4 mg PO Q8H #10 tabs 11/07/24 tablet pantoprazole 40 mg tablet,delayed 40 mg PO BID 90 days #180 tabs 11/11/24 release methocarbamol 1,000 mg tablet 1,000 mg PO TID #20 tabs 11/25/24 omeprazole 20 mg capsule,delayed 20 mg PO DAILY 14 days #14 caps 11/25/24 release ondansetron 4 mg disintegrating 4 mg PO Q8H PRN nausea and 11/25/24 tablet vomiting 3 days #12 tabs terbinafine HCl 1 % topical cream 1 appl topical TID #30 grams 12/16/24 (Athlete's Foot (terbinafine)) Allergies Allergy/AdvReac Type Severity Reaction Status Date / Time No Known Allergies (No Known Allergy Verified 12/15/24 23:19 Allergies*) Review of Systems Review of Systems: Constitutional : No Weight loss, No Fever, No Chills, No Night Sweats, No Fatigue, No Malaise ENT/Mouth : No Hearing loss, No Ear Pain, No Nasal Congestion, No Sinus Pain, No Hoarseness, No sore throat, No Rhinorrhea, No Swallowing Difficulty Eyes: No Eye Pain, No Swelling, No Redness, No Foreign Body, No Discharge, No Vision Changes Cardiovascular : No Chest Pain, No SOB, No Dyspnea on Exertion, No Orthopnea, No Edema, No Palpitations Respiratory : No Cough, No Sputum, No Wheezing, No Smoke Exposure, No Dyspnea Gastrointestinal : No Nausea, No Vomiting, No Diarrhea, No Constipation, No abdominal Pain, No Hematochezia, No Melena Genitourinary : no irregular bleeding, No Dysuria, No Urinary Frequency, No Hematuria, No Urinary Incontinence, No Urgency, No Flank Pain, No Urinary Flow Changes, No Hesitancy Musculoskeletal : No joint pain, No Myalgias, No Joint Swelling Skin : No Skin Lesions, No rash. Complaining of a lesion between the 3rd and 4th toe on the right foot, no responding to antibiotics. Neuro : No Weakness, No Numbness, No Paresthesias, No Loss of Consciousness, No Dizziness, No Headache Psych : No Anxiety/Panic, No Depression, No SI/HI/AH/VH, No Social Issues, Heme/Lymph: No Bruising, No Bleeding,No Lymphadenopathy Endocrine : No Polyuria, No Polydipsia, No Temperature Intolerance [facility] Past Medical History Medical History Simple ovarian cyst Hypertension IBS (irritable bowel syndrome) Fibromyalgia Asthma Migraines Surgical History Hx of colonoscopy History of esophagogastroduodenoscopy (EGD) History of loop electrical excision procedure (LEEP) Hx of tubal ligation Family History Family History Mother Diabetes HTN (hypertension) Asthma Brother Asthma Social History Social History Household Members: Children Are you a primary career technical counselor to a significant other at home: No Do you presently have visiting nurse or other home services: No Alcohol intake: never Comment: counts correct Patient Tobacco Use Status: Never used Tobacco Substance Use Type: Marijuana Advance Directives: Yes Advance Directives on File: Yes Advance Directives Date on File: 08/29/24 Do you have a plan to hurt others: No Plan Current occupational status: employed 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 Oriented X3. No acute distress. Eyes: Pupils equal, round and reactive to light. ENT: Pharynx normal. Neck: Normal inspection. Neck supple. No lymph nodes noted. No crepitus CVS: Normal heart rate and rhythm. Pulses normal. Normal S1 and S2 Respiratory: No respiratory distress. Breath sounds normal. No Wheezing. No rales Abdomen: Soft and nontender. No rigidity. No distention. Skin: Skin warm and dry. Normal skin color. Normal skin turgor. Extremities: No lower extremity edema. No Lacerations. No Rash. Patient has tinea pedis between the 3rd and 4th toes on the right foot Neuro: Oriented X 3. No motor deficit. No sensory deficit. Moving all extremities. No slurred speech. CN 2 through 12 grossly intact Psych: calm, cooperative, normal affect Vital Signs: Vital Signs: Last Vital Signs Temp 97.7 F 12/15/24 23:16 Pulse 85 12/15/24 23:16 Resp 16 12/15/24 23:16 BP 150/91 H 12/15/24 23:16 Pulse Ox 95 12/15/24 23:16 O2 Del Method Room Air 12/15/24 23:16 BMI result Body Mass Index 30.0 Medical Decision Making Medical Decision Making MDM Narrative: I discussed the physical exam with the patient, patient has tinea pedis. Antifungal medication has been sent to the patient's pharmacy. Discussed with the patient that this may take a few weeks to control Discharge Plan Discharge Clinical Impression: Tinea pedis Patient Disposition: Home, Self-Care Instructions: Skin Yeast Infection (ED) Additional Instructions: Please follow-up with your primary care physician tomorrow. If you have any worsening or new symptoms, please return to the emergency room or call 911 Prescriptions: New terbinafine HCl [Athlete's Foot (terbinafine)] 1 % cream 1 appl topical TID Qty: 30 1RF No Action propranolol 60 mg capsule,extended release 24 hr 60 mg PO BEDTIME Qty: 90 1RF ondansetron 4 mg tablet,disintegrating 4 mg PO Q8H Qty: 10 0RF pantoprazole 40 mg tablet,delayed release (DR/EC) 40 mg PO BID 90 Days Qty: 180 1RF hwmvgteigx-mrgrlymhwmqez-ettr [Fioricet] 50-300-40 mg capsule 1 cap PO Q8H PRN (Reason: pain) Qty: 3 0RF acetaminophen 500 mg tablet 1,000 mg PO QID PRN (Reason: pain) Qty: 30 0RF cyclobenzaprine 10 mg tablet 10 mg PO TID Qty: 10 0RF naproxen [Naprosyn] 500 mg tablet 500 mg PO BID Qty: 20 0RF methocarbamol 500 mg tablet 1,000 mg PO Q8H PRN (Reason: pain, moderate) Qty: 24 0RF omeprazole 20 mg capsule,delayed release(DR/EC) 20 mg PO DAILY 14 Days Qty: 14 0RF ondansetron 4 mg tablet,disintegrating 4 mg PO Q8H PRN (Reason: nausea and vomiting) 3 Days Qty: 12 0RF methocarbamol 1,000 mg tablet 1,000 mg PO TID Qty: 20 0RF ibuprofen 600 mg tablet 600 mg PO Q6H PRN (Reason: fever or pain) Qty: 30 0RF acetaminophen [Tylenol Extra Strength] 500 mg tablet 500 mg PO Q6H PRN (Reason: fever or pain) Qty: 14 0RF lidocaine [Lidoderm] 5 % adhesive patch,medicated 1 patch topical DAILY MDD remove after 12 hours PRN (Reason: pain) Qty: 30 0RF Rx Instructions: leave on most painful area for up to 12 hrs cyclobenzaprine 5 mg tablet 5 mg PO Q8H PRN (Reason: pain (scale score 7-10)) 5 Days Qty: 14 0RF loratadine [Allerclear] 10 mg tablet 10 mg PO DAILY PRN (Reason: allergic symptoms) Qty: 30 0RF albuterol sulfate [Proventil HFA] 90 mcg/actuation HFA aerosol inhaler 1 inh inhalation QID montelukast [Singulair] 10 mg tablet 10 mg PO BEDTIME loratadine [Allergy Relief (loratadine)] 10 mg tablet 10 mg PO DAILY Excedrin Migraine 250-250-65 mg tablet 1 tab PO Q4-6H PRN (Reason: Headache) lisinopril 10 mg tablet 10 mg PO DAILY cholecalciferol (vitamin D3) [Vitamin D3] 50 mcg (2,000 unit) capsule 50 mcg PO DAILY polyethylene glycol 3350 [Miralax] 17 gram/dose powder 17 g PO DAILY Qty: 510 2RF Print Language: Yi
[2024-12-16 01:25] VITALS: BP 122/80; PULSE 71; RESP 15; TEMP 36.9; O2SAT 97
[2024-12-16 01:26] VITALS: BP 122/80; PULSE 71; RESP 15; TEMP 36.9; O2SAT 97
== END 2024-12-16 01:26 | disposition home or self-care (01) ==
PROVIDERS: Emergency Provider Emergency Medicine; PCP Family Medicine
DX: B35.3 Tinea pedis (principal); M79.671 Pain in right foot; Z79.899 Other long term (current) drug therapy
CPT/HCPCS: 99283

== ENCOUNTER 2025-01-10 14:30 | Outpatient (REF) | payer MEDICAID, SELFPAY ==
--- NOTE | ~2025-01-10 | US_ITS ---
EXAMINATION: US PELVIS CLINICAL INFORMATION: Pelvic and perineal pain. LMP 12/18/2024. COMPARISON: 04/25/2023. Correlation made with MR pelvis 11/17/2023. Correlation made with CT abdomen pelvis 11/25/2024. TECHNIQUE: Ultrasound of the pelvis is performed using both transabdominal and transvaginal transducers along with Doppler. Transvaginal imaging is performed due to inadequate visualization transabdominally. FINDINGS: Uterus: The uterus is anteverted, anteflexed, and measures 8.1 x 3.7 x 5.8 cm. The cervix demonstrates nabothian cysts. There is a mildly echogenic oval 8 mm abnormality in the endocervical canal, questionably a polyp or possibly a blood clot. The double wall endometrial thickness is 9 mm. There is a tiny subendometrial cyst in the mid uterine segment. This is of doubtful clinical significance. The uterus is smooth in contour and has mildly heterogeneous myometrial echogenicity. No visible fibroid. Adnexa: Both ovaries are visualized. There is normal color flow to the adnexa. There is no ovarian torsion. There is no pelvic ascites or fluid collection. There are no adnexal masses. Right ovary measures 2.4 x 1.7 x 2.1 cm. Volume = 4.5 mL. Normal sonographic appearance. Left ovary measures 3.0 x 1.4 x 2.6 cm. Volume = 5.7 mL. Normal sonographic appearance. US/US pelvic and transvaginal IMPRESSION: 1. Oval 8 mm mildly echogenic focus in the endocervical canal, uncertain etiology, questionably a polyp versus hemorrhagic products. Recommend six-week follow-up to assess for resolution or persistence. 2. Normal endometrial thickness of 9 mm. 3. Normal uterus with no evidence of fibroid. 4. Normal ovaries bilaterally. Electronically signed by: Agustín Mann MD 01/10/2025 03:58 PM EDT
--- OUTSIDE RECORDS SUMMARY | 2025-01-10 17:00 | XMS_ITS | Clinical Summary ---
Author Organization [employer] Address [address] [place] [address] 7t [place] [address] Care Team Providers Care Inspector Final Assembly Mechanical Name Role Phone Lu Estrada MD Primary Care Provider [phone] Allergies No known active allergies Medications hydrocortisone [...] Feb 2024 was unremarkable - since her [facility] [employer] surgery; advised to contact her surgeon or [facility] [employer] Atypical chest pain 07/13/2022 Enlarged tonsils 07/13/2022 [...] Plan (04/25/2022 4:36 PM EST): -followed by [facility] continue famotidine -continue pantoprazole -avoid NSAIDS IBS (irritable bowel syndrome) 04/21/2022 Assessment & Plan (01/28/2024 4:45 PM EST): - followed by [facility] last seen in May 2023 - s/p EGD and colonoscopy -GI prescribed dicyclomine, simethicone, and Creon, but she is not taking it; recommended to discuss with GI specialist before discontinuing it -work on stress reduction Assessment & Plan (05/05/2023 6:42 AM EST): - followed by [facility] last seen in Nov 2022 - [...] (04/29/2022 6:27 PM EST): - followed by [facility] last seen on 03/24/22 -continue dicyclomine [...] Plan (04/28/2024 4:12 PM EST): -seen by [facility] neurologist in Apr 2019 -seen by [facility] neurology in Dec 2022 -04/23/22 Head [...] Plan (01/28/2024 4:50 PM EST): -seen by [facility] neurologist in Apr 2019 -seen by [facility] neurology in Dec 2022 -04/23/22 Head [...] Plan (05/05/2023 6:51 AM EST): -seen by [facility] neurologist in Apr 2019 -seen by [facility] neurology in Dec 2022 -04/23/22 Head [...] Encounters Date Type Department Care Team Description 01/10/2025 Orders Only [facility] External Provider, [facility] 12/24/2024 Telephone [facility] [address] [place] [address] Lu Estrada MD chart prep 12/23/2024 7:00 PM EDT Office Visit [facility] [address] [place] [address] Joseph Mix MD Chills (Primary Dx); History of hypokalemia 12/23/2024 Travel 12/18/2024 Patient Outreach [facility] [address] [place] [address] Lu Estrada MD Pre-visit Planning (SDOH screening positive and Tobacco screening negative) 12/05/2024 9:15 AM EDT Office Visit [facility] [address] [place] [address] Tarka, Aziza, OD Hypermetropia, bilateral (Primary Dx) 12/05/2024 Travel 11/25/2024 Orders Only GENERIC EXTERNAL DATA DEPARTMENT Provider, Generic External Data 11/24/2024 Orders Only [facility] External Provider, [facility] 11/21/2024 Orders Only GENERIC EXTERNAL DATA [...] got money to buy more: Never True 12/18/2024 Within the past 12 months,th e food [...] Sign Reading Time Taken Comments Blood Pressure 124/88 12/23/2024 6:59 PM EDT Pulse 76 12/23/2024 6:59 PM EDT Temperature 36.7 C (98.1 F) 12/23/2024 6:59 PM EDT Respiratory Rate 18 12/23/2024 6:59 PM EDT Oxygen Saturation 98% 12/23/2024 6:59 PM EDT Inhaled Oxygen Concentration - - Weight 81.6 kg (180 lb) 12/23/2024 6:59 PM EDT Height 170.9 cm (5' 7.28 ) 04/29/2024 10:[address] Body Mass Index 27.96 04/29/2024 10:43 AM EST Plan of Treatment Upcoming Encounters Date Type Department Care Team (Late st Contact Info) Description 02/18/2025 10:45 AM EST Office Visit [facility] [address] [place] [address] Lu Estrada MD [address] [place] [address] Health Maintenance Due Date Last Done Comments Disability Screening 1985 Family Planning (PISQ) 2002 HPV Vaccines (1 - 3-dose series) 2002 Dental Oral Exam 03/10/2024 09/08/2023, 03/02/2022 Dental X-Ray: Bitewings 09/08/2024 09/08/2023, 03/02 Dental Prophylaxis 09/10/2024 03/11/2024, 0 09/08/2023, 09/22/2022, Additional history exists Influenza Vaccine (#1) 2024 , 03/08/2023, 04/25/2022, Additional history exists Alcohol/Substance Use Screening 01/21/2025 01/22/2024 Depression Screening 01/21/2025 01/22/2024, 01/22/20 Dental X-Ray: Full Mouth 03/03/2025 03/02/2022 Tobacco Screening 06/18/2025 06/18/2024 SDOH Screening 12/18/2025 12/18/2024 Pap Smear 12/04/2026 12/05/2023, 10/25/2022 Cervical Cancer [...] Procedure Name Priority Date/Time Associated Diagnosis Comments US PELVIS TRANSVAGINAL Routine 01/10/2025 3:[address] ABDOMEN PELVIS WO CONTRAST Routine 11/25/2024 [...] Recently Relevant to Health Maintenance Results * US Pelvis Transvaginal (01/10/2025 3:03 PM EDT) Anatomical Region Laterality Modality Pelvis Ultrasound 01/10/2025 3:03 PM EDT Narrative 01/10/2025 4:02 PM EDT [place] [address] Ultrasound Report Signed Patient: Shruti Winters MR#: [id number] : 1985 Acct:[id number] Age/Sex: 39 / F ADM Date: 01/10/25 Loc: .US Attending Dr: Kaden Jett MD Ordering Physician: Kaden Jett MD Date of Service: 01/10/25 Procedure(s): US pelvic and transvaginal Accession Number(s): [id number] cc: Lu Estrada MD; Kaden Jett MD Reason for Exam: R10.2 - Pelvic and perineal pain EXAMINATION: US PELVIS CLINICAL INFORMATION: Pelvic and perineal pain. LMP 12/18/2024. COMPARISON: 04/25/2023. Correlation made with MR pelvis 11/17/2023. Correlation made with CT abdomen pelvis 11/25/2024. TECHNIQUE: Ultrasound of the pelvis is performed using both transabdominal and transvaginal transducers along with Doppler. Transvaginal imaging is performed due to inadequate visualization transabdominally. FINDINGS: Uterus: The uterus is anteverted, anteflexed, and measures 8.1 x 3.7 x 5.8 cm. The cervix demonstrates nabothian cysts. There is a mildly echogenic oval 8 mm abnormality in the endocervical canal, questionably a polyp or possibly a blood clot. The double wall endometrial thickness is 9 mm. There is a tiny subendometrial cyst in the mid uterine segment. This is of doubtful clinical significance. The uterus is smooth in contour and has mildly heterogeneous myometrial echogenicity. No visible fibroid. Adnexa: Both ovaries are visualized. There is normal color flow to the adnexa. There is no ovarian torsion. There is no pelvic ascites or fluid collection. There are no adnexal masses. Right ovary measures 2.4 x 1.7 x 2.1 cm. Volume = 4.5 mL. Normal sonographic appearance. Left ovary measures 3.0 x 1.4 x 2.6 cm. Volume = 5.7 mL. Normal sonographic appearance. US/US pelvic and transvaginal IMPRESSION: 1. Oval 8 mm mildly echogenic focus in the endocervical canal, uncertain etiology, questionably a polyp versus hemorrhagic products. Recommend six-week follow-up to assess for resolution or persistence. 2. Normal endometrial thickness of 9 mm. 3. Normal uterus with no evidence of fibroid. 4. Normal ovaries bilaterally. Electronically signed by: Agustín Mann MD 01/10/2025 03:58 PM EDT Dictated By: Agustín Mann MD Signed By: <Electronically signed by Agustín Mann MD in [place]> 01/10/25 1558 DD/ 1503 TD/TT: 01/10/25 1525 Vp Legal Affairs: Procedure Note Donotuseinterpreter, Image - 01/10/2025 [place] [address] Ultrasound Report Signed Patient: Ajay Winters#: [id number] : 1985Acct:[id number] Age/Sex: 39 / FADM Date: 01/10/25 Loc: HO.US Attending Dr: Kaden Jett MD Ordering Physician: Kaden Jett MD Date of Service: 01/10/25 Procedure(s): US pelvic and transvaginal Accession Number(s): [id number] cc: Lu Estrada MD; Kaden Jett MD Reason for Exam: R10.2 - Pelvic and perineal pain EXAMINATION: US PELVIS CLINICAL INFORMATION: Pelvic and perineal pain. LMP 12/18/2024. COMPARISON: 04/25/2023. Correlation made with MR pelvis 11/17/2023. Correlation made with CT abdomen pelvis 11/25/2024. TECHNIQUE: Ultrasound of the pelvis is performed using both transabdominal and transvaginal transducers along with Doppler. Transvaginal imaging is performed due to inadequate visualization transabdominally. FINDINGS: Uterus: The uterus is anteverted, anteflexed, and measures 8.1 x 3.7 x 5.8 cm. The cervix demonstrates nabothian cysts. There is a mildly echogenic oval 8 mm abnormality in the endocervical canal, questionably a polyp or possibly a blood clot. The double wall endometrial thickness is 9 mm. There is a tiny subendometrial cyst in the mid uterine segment. This is of doubtful clinical significance. The uterus is smooth in contour and has mildly heterogeneous myometrial echogenicity. No visible fibroid. Adnexa: Both ovaries are visualized. There is normal color flow to the adnexa. There is no ovarian torsion. There is no pelvic ascites or fluid collection. There are no adnexal masses. Right ovary measures 2.4 x 1.7 x 2.1 cm. Volume = 4.5 mL. Normal sonographic appearance. Left ovary measures 3.0 x 1.4 x 2.6 cm. Volume = 5.7 mL. Normal sonographic appearance. US/US pelvic and transvaginal IMPRESSION: 1. Oval 8 mm mildly echogenic focus in the endocervical canal, uncertain etiology, questionably a polyp versus hemorrhagic products. Recommend six-week follow-up to assess for resolution or persistence. 2. Normal endometrial thickness of 9 mm. 3. Normal uterus with no evidence of fibroid. 4. Normal ovaries bilaterally. Electronically signed by: Agustín Mann MD 01/10/2025 03:58 PM EDT Dictated By: Agustín Mann MD Signed By: <Electronically signed by Agustín Mann MD in [place]> 01/10/25 1558 DD/ 1503 TD/TT: 01/10/25 1525 Vp Legal Affairs: us [facility] External Provider IMG US PROCEDURES Final Result * CT Abdomen Pelvis w/o Contrast (11/25/2024 4:50 AM EDT) Anatomical Region Laterality Modality Body, Pelvis, Abdomen Computed T omography 11/25/2024 4:50 AM EDT Narrative 11/25/2024 4:51 AM EDT [address] [address] [address] Scan Report Signed Patient: Shruti Winters MR#: [id number] : 1985 Acct:[id number] Age/Sex: 39 / F ADM Date: 11/24/24 Loc: HO.ED Attending Dr: Ordering Physician: Mandi Branch DO Date of Service: 11/25/24 Procedure(s): CT abdomen pelvis wo IV con Accession Number(s): [id number] cc: Mandi Branch DO; [facility] Report Number: [id number]: Total DLP = 629.00 mGy-cm CLINICAL HISTORY: [...] signed by Keaton Gaxiola MD in [place]> 11/25/24 0450 DD/ 045 TD/TT: 11/25/24 045 Vp Legal Affairs: Procedure Note Donotuseinterpreter, Image - 11/25/[address] [address] [address] Scan Report Signed Patient: Wilton WintersR#: [id number] : 1985Acct:[id number] Age/Sex: 39 / FADM Date: 11/24/24 Loc: HO.ED Attending Dr: Ordering Physician: Mandi Branch DO Date of Service: 11/25/24 Procedure(s): CT abdomen pelvis wo IV con Accession Number(s): [id number] cc: BranchMandi Alexis RENEE; [facility] Report Number: [id number]: Total DLP = 629.00 mGy-cm CLINICAL HISTORY: [...] in OV> 11/25/24449 DD/ 9 TD/TT: 11/25/24449 Vp Legal Affairs: [facility] External Provider IMG CT PROCEDURES Final Result * (ABNORMAL) Urinalysis, Complete, with Reflex to Culture (11/25/2024 2:17 AM EDT) Color Urine Yellow [facility] Appearance Urine Clear [facility] PH 5.5 5.0 - 9.0 [facility] Glucose Urine UA Negative Negative mg/dL [facility] Urine Blood Moderate (2+)(A) Negative [facility] Specific [place] - Urine >=1.030(H) 1.005 - 1.025 [facility] Urine Protein Trace Neg-Trace mg/dL [facility] Urine Ketones Negative Negative mg/dL [facility] Nitrite Urine Negative Negative [facility] Leukocyte Esterase Urine Negative Negative [facility] RBC Urine >20(A) 0 - 2 /HPF [facility] Urine WBC 0-5 0 - 5 /HPF [facility] Urine Squamous Epithelial Cell 0-2 0 - 2 /HPF [facility] Urine Bacteria None Seen None Seen [facility] Hyaline Casts, Urine 0-2 0 - 2 /LPF [facility] 11/25/2024 2:17 AM EDT 11/25/2024 2:22 AM EDT Narrative [facility] - 11/25/2024 2:31 AM EDT [id number], Clean Catch us Generic External Data Provider LAB URINE ORDERAB LES Final Result [facility] [address] [place] [phone] * Chlamydia/N. Gonorrhoeae RNA, TMA, Urogenitial (11/21/2024 11:24 AM EDT) CT PCR NOT DETECTED Not Detect. [facility] Comment:A not detected test result [...] psychologicalconsequences. NG PCR NOT DETECTED Not Detect. [facility] Comment:A not detected test result [...] GENERAL ORDERABLES Final Result Performing Organization Address [facility] Co de Phone Number [facility] [address] [place] [phone] * Culture, Urine, Routine (11/21/2024 11:24 AM EDT) Urine Urine specimen obtained by clean catch procedure / Unknown 11/21/2024 11:24 AM EDT 11/21/2024 2:14 PM EDT Comment:[facility] Narrative [facility] - 11/22/2024 9:11 AM EDT Urine Culture No growth. Specimen Source: Urine clean catch Generic External Data Provider LAB MICROBIOLOGY - GENERAL ORDERABLES Final Result Performing Organization Address City/[facility] Co de Phone Number [facility] [address] [place] [phone] * (ABNORMAL) Lipid Panel with Reflex to Direct LDL (01/22/2024 3:20 PM EDT) Triglycerides 88 <150 mg/dL [facility] Comment:Desirable Triglyceri de: less than 150 mg/dLBorderline High Triglyceride 150-199 mg/dLHigh Triglyceride: 200-499 mg/dLVery High Triglyceride: greater than or equal to 5OO mg/dL Cholesterol 183 <200 mg/dL [facility] Comment:Desirable Cholestero l: less than 200 mg/dLBorderline High Cholesterol: 200-239 mg/dLHigh Cholesterol: greater than 239 mg/dL LDL Cholesterol Calculated 126(H) <100 mg/dL [facility] Comment:Desirable LDL: less than 100 mg/dLNear Optimal/Above Optimal LDL: 110- 129 mg/dLBorderline High LDL: 130-159 mg/dLHigh LDL: 160-189 mg/dLVery High LDL: greater than or equal to 190 mg/dL HDL Cholesterol 40(L) >40 mg/dL [facility] Comment:Desirable HDL: great er than 40 mg/dL Note: This HDL assay may give artificially low results in patients with liver disease. Blood 01/22/2024 3:20 PM EDT 01/22/2024 4:05 PM EDT Lu Estrada MD LAB BLOOD ORDERABLES Final Resul t [facility] [address] [place] [phone] * ThinPrep Imaging Pap and HPV mRNA E6/E7 with Reflex to HPV 16,18/45 (12/05/2023 12:00 AM EDT) HPV 16 RNA TNP [facility] HPV 18/45 RNA [facility] HPV nRNA E6/E7 Not Detected Not Detected [facility] Comment:Methodology: Transcr iption-Mediated AmplificationThis assay detects E6/E7 viral messenger RNA (mRNA) from 14high-risk HPV types (16,18,31,33,35,39,45,51,52,56,58,59,66,68).Cervical sources are required for HPV testing.If a vaginal source from a patient who has had atotal hysterectomy with removal of cervix wassubmitted, please contact the testing laboratoryfor alternative testing options.For additional information, please refer tohttp://education.ZoomInfo/faq/KYL055a7(This link if provided for information/educational purposes only.)THIS TEST WAS PERFORMED AT:[facility] [address] [phone] MILLS MD SOURCE: SEE NOTE [facility] Comment:None given Report Status: [facility] Clinical Information: SEE NOTE [facility] Comment:None given LMP: SEE NOTE [facility] Comment:NONE GIVEN Prev. PAP: SEE NOTE [facility] Comment:NONE GIVEN Prev. BX: SEE NOTE [facility] Comment:NONE GIVEN Statement Of Adequacy: SEE NOTE [facility] Comment:Satisfactory for tahmina luation.Endocervical/transformation zone componentpresent. General Categorization: [facility] Interpretation/Result: SEE NOTE [facility] Comment:Cytology Results: Ne gative for intraepitheliallesion or malignancy. Cytology Comment SEE NOTE [facility] Comment:This Pap test has be en evaluated with computerassisted technology. Dry Ice Machine Operator: SEE NOTE [facility] Comment:[place], CT(ASCP)CT scre ening location: [address] [address] Review Dry Ice Machine Operator: [facility] Pathologist [facility] PAP Infection [facility] See Note SEE NOTE [facility] Comment:EXPLANATORY NOTE:The Pap is a screening test for cervical cancer. It isnot a diagnostic test and is subject to false negativeand false positive results. It is most reliable when asatisfactory sample, regularly obtained, is submittedwith relevant clinical findings and history, and whenthe Pap result is evaluated along with historic andcurrent clinical information. 12/05/2023 12/05/2023 Narrative [facility] - 12/11/2023 1:12 PM EDT SEE SCANNED RESULTS IN EMR us Generic External Data Provider LAB PATHOLOGY ORD ERABLES Final Result [facility] [address] [place] [phone] * HEPATITIS C AB W/REFL TO HCV RNA, QN, PCR (03/16/2020 4:32 PM EST) HEPATITIS C ANTIBODY NON-REACT CORA NON-REACT CORA [facility] INDEX 0.02 <1.00 [facility] Comment: HCV antibody was non-reactive. There is no laboratory evidence of HCV infection. In most cases, no further action is required. However, if recent HCV exposure is suspected, a test for HCV RNA (test code 50746) is suggested. For additional information please refer to http://Altar.ZoomInfo/faq/FTL39v8 (This link is being provided for informational/ educational purposes only.) 03/16/2020 4:32 PM EST us Lu Estrada MD HISTORICAL/NON ORDERABLE LABS Fi nal Result [facility] [address] * HIV 1/2 ANTIGEN/ANTIBODY,FOURTH GENERATION W/RFL [...] purpose. For additional information please refer to http://Altar.ZoomInfo/faq/KLQ231 (This link is being provided for informational/ educational purposes only.) The performance of this assay has not been clinically validated in patients less than 2 years old. 03/16/2020 4:32 PM EST us Lu Estrada MD LAB BLOOD ORDERABLES Final Resul t [facility] [address] from Last 3 Months or Most Recently Relevant to Health Maintenance Insurance [facility] MEDICA[facility] STAND ADULT Care Teams Inspector Final Assembly Mechanical Relationship Specialty Start Date End Date Lu Estrada MD [address] [place] [phone] PCP - General Family Medicine 03/27/18
--- OUTSIDE RECORDS SUMMARY | 2025-01-10 17:00 | XMS_ITS | Encounter Summary ---
Author Organization [employer] Address [address] [place] [address] 7 [place] [address] Care Team Providers Care Network Liaison Name Role Phone Lu Estrada MD Primary Care Provider [phone] Encounter Details Date Type Department Care Team (Late Contact Info) Description 04/19/2022 Orders Only [facility] [address] [place] [address] [phone] Lu Estrada MD [address] [place] [address] [phone] Social History Tobacco Use Types Packs/Day Years [...] Department Care Team (Late Contact Info) Description 02/18/2025 10:45 AM EST Office Visit [facility] [address] [place] [address] [phone] Lu Estrada MD [address] [place] [address] [phone] documented as of this encounter Visit Diagnoses Not on filedocumented in this encounter Care Teams Network Liaison Relationship Specialty Start Date End Date Lu Estrada MD [address] [place] [address] PCP - General Family Medicine 03/27/18 documented as of this encounter
--- OUTSIDE RECORDS SUMMARY | 2025-01-10 17:00 | XMS_ITS | Encounter Summary ---
Author Organization [employer] Address [address] [place] [address] [address]t [place] [address] Care Team Providers Care Leadership Coach Name Role Phone Lu Estrada MD Primary Care Provider [phone] Encounter Details Date Type Department Care Team ([facility] Contact Info) Description 03/18/2022 Abstract [facility] ADULT D[facility] [address] [place] [address] Viet Kellogg DDS [address] [place] [address] Social History Tobacco Use Types Packs/Day Years [...] Upcoming Encounters Date Type Department Care Team ([facility] Contact Info) Description 02/18/2025 10:45 AM EST Office Visit [facility] [address] [place] [address] Lu Estrada MD [address] [place] [address] documented as of this encounter Visit Diagnoses Not on filedocumented in this encounter Care Teams Leadership Coach Relationship Specialty Start Date End Date Lu Estrada MD [address] [place] [address] PCP - General Family Medicine 03/27/18 documented as of this encounter
--- OUTSIDE RECORDS SUMMARY | 2025-01-10 17:00 | XMS_ITS | Encounter Summary ---
Author Organization [employer] Address [address] [place] [address] [address] [place] [address] Care Team Providers Care Pattern Setter Name Role Phone Lu Estrada MD Primary Care Provider [phone] Reason for Visit * Reason Comments Med Refill Encounter Details Date Type Department Care Team ([facility] Contact Info) Description 04/19/2022 Refill [facility] [address] [place] [address] [phone] Leatha Chong MD [address] [place] [address] [phone] Primary hypertension (Primary Dx) Social History Tobacco [...] 02/18/2025 10:45 AM EST Office Visit [facility] [address] [place], [place] [phone] Lu Estrada MD [address] [place], [place] [phone] documented as of this encounter Visit Diagnoses Diagnosis Primary hypertension- Primary Unspecified essential hypertension documented in this encounter Care Teams Pattern Setter Relationship Specialty Start Date End Date Lu Estrada MD [address] [place] [address] PCP - General Family Medicine 03/27/18 documented as of this encounter
--- OUTSIDE RECORDS SUMMARY | 2025-01-10 17:00 | XMS_ITS | Encounter Summary ---
Author Organization [employer] Address [address] [place] [address] 7t [place] [address] Care Team Providers Care Paleontology Teacher Name Role Phone Lu Estrada MD Primary Care Provider [phone] Encounter Details Date Type Department Care Team ([facility] Contact Info) Description 10/17/2022 Abstract [facility] ADULT DENTAL [address] [place], [place] [phone] Mc Ennisaris [address] [place] [address] Social History Tobacco Use Types Packs/Day Years [...] Encounters Date Type Department Care Team ([facility] Contact Info) Description 02/18/2025 10:45 AM EST Office Visit [facility] [address] [place], [place] [phone] Lu Estrada MD [address] [place] [address] documented as of this encounter Visit Diagnoses Not on filedocumented in this encounter Care Teams Paleontology Teacher Relationship Specialty Start Date End Date Lu Estrada MD [address] [place] [address] PCP - General Family Medicine 03/27/18 documented as of this encounter
--- OUTSIDE RECORDS SUMMARY | 2025-01-10 17:00 | XMS_ITS | Encounter Summary ---
Author Organization [employer] Address [address] [place] [address] [address] [place] [address] Care Team Providers Care Play Reader Name Role Phone Lu Estrada MD Primary Care Provider [phone] Encounter Details Date Type Department Care Team ([facility] Contact Info) Description 10/17/2022 Abstract [facility] ADULT DENTAL [address] [place], [place] [phone] Mc Ennisaris [address] [place] [address] Social History Tobacco Use Types Packs/Day Years [...] Encounters Date Type Department Care Team ([facility] Contact Info) Description 02/18/2025 10:45 AM EST Office Visit [facility] MED[facility] [address] [place], [place] [phone] Lu Estrada MD [address] [place] [address] documented as of this encounter Visit Diagnoses Not on filedocumented in this encounter Care Teams Play Reader Relationship Specialty Start Date End Date Lu Estrada MD [address] [place] [address] PCP - General Family Medicine 03/27/18 documented as of this encounter
--- OUTSIDE RECORDS SUMMARY | 2025-01-10 17:00 | XMS_ITS | Encounter Summary ---
Author Organization [employer] Address [address] [place] [address] 7t [place] [address] Care Team Providers Care Trimming Machine Operator Name Role Phone Lu Estrada MD Primary Care Provider [phone] Reason for Visit * Reason Onset Date Comments Appointment Request 12/23/2022 Derm Encounter Details Date Type Department Care Team ([facility] Contact Info) Description 12/23/2022 Telephone [facility] MEDICINE [address] [place] [address] Lu Estrada MD [address] [place] [address] Appointment Request (Derm ) Social History Tobacco [...] Description 02/18/2025 10:45 AM EST Office Visit [facility] MEDICINE [address] [place], [place] [phone] Lu Estrada MD [address] [place] [address] documented as of this encounter Visit Diagnoses Not on filedocumented in this encounter Care Teams Trimming Machine Operator Relationship Specialty Start Date End Date Lu Estrada MD [address] [place], [place] [phone] PCP - General Family Medicine 03/27/18 documented as of this encounter
--- OUTSIDE RECORDS SUMMARY | 2025-01-10 17:00 | XMS_ITS | Encounter Summary ---
Author Organization [employer] Address [address] [place] [address] 7 [place] [address] Care Team Providers Care Server Developer Name Role Phone Lu Estrada MD Primary Care Provider [phone] Encounter Details Date Type Department Care Team (Latest Contact Info) Description 07/08/2020 Abstract [facility] CONVERSIONS Dental, Provider, DDS Social [...] Description 02/18/2025 10:45 AM EST Office Visit [facility] MEDICINE [address] [place] [address] Lu Estrada MD [address] [place] [address] documented as of this encounter Visit Diagnoses Not on filedocumented in this encounter Care Teams Server Developer Relationship Specialty Start Date End Date Lu Estrada MD [address] [place] [address] PCP - General Family Medicine 03/27/18 documented as of this encounter
--- OUTSIDE RECORDS SUMMARY | 2025-01-10 17:00 | XMS_ITS | Encounter Summary ---
Author Organization [employer] Address [address] [place] [address] 7 [place] [address] Care Team Providers Care Assistant Signal Maintainer Name Role Phone Lu Estrada MD Primary Care Provider [phone] Reason for Visit * Reason Comments Med Refill Encounter Details Date Type Department Care Team (Late Contact Info) Description 06/08/2022 Refill [facility] MEDICINE [address] [place] [address] [phone] Danny Lundy MD [address] [place] [address] [phone] Social History Tobacco Use Types Packs/Day Years [...] Description 02/18/2025 10:45 AM EST Office Visit [facility] MEDICINE [address] [place] [address] Lu Estrada MD [address] [place] [address] [phone] documented as of this encounter Visit Diagnoses Not on filedocumented in this encounter Care Teams Assistant Signal Maintainer Relationship Specialty Start Date End Date Lu Estrada MD [address] [place] [phone] PCP - General Family Medicine 03/27/18 documented as of this encounter
--- OUTSIDE RECORDS SUMMARY | 2025-01-10 17:00 | XMS_ITS | Encounter Summary ---
Author Organization [employer] Address [address] [place] [address] 7 [place] [address] Care Team Providers Care General Purchasing Agent Name Role Phone Lu Estrada MD Primary Care Provider [phone] Encounter Details Date Type Department Care Team (Late Contact Info) Description 02/23/2022 Abstract [facility] ADULT DENTAL [address] [place] [address] Dental, Provider, DDS Social History Tobacco Use [...] Description 02/18/2025 10:45 AM EST Office Visit [facility] MEDICINE [address] [place] [address] Lu Estrada MD [address] [place] [address] documented as of this encounter Procedures Procedure Name Priority Date/Time Associated Diagnosis Comments 14 O AMALGAM FILLING Routine 02/23/2022 12:00 AM EST documented in this encounter Visit Diagnoses Not on filedocumented in this encounter Care Teams General Purchasing Agent Relationship Specialty Start Date End Date Lu Estrada MD [address] [place] [address] PCP - General Family Medicine 03/27/18 documented as of this encounter
--- OUTSIDE RECORDS SUMMARY | 2025-01-10 17:00 | XMS_ITS | Encounter Summary ---
Author Organization [employer] Address [address] [place] [address] 7 [place] [address] Care Team Providers Care Diamond Picker Name Role Phone Lu Estrada MD Primary Care Provider Encounter Details Date Type Department Care Team (Late st Contact Info) Description 04/04/2022 Abstract [facility] ADULT DENTAL [address] [place] [address] Viet Kellogg DDS [address] [place] [address] Social History Tobacco Use Types Packs/Day Years [...] Description 02/18/2025 10:45 AM EST Office Visit [facility] MEDICINE [address] [place] [address] Lu Estrada MD 230 [place] [address] documented as of this encounter Visit Diagnoses Not on filedocumented in this encounter Care Teams Diamond Picker Relationship Specialty Start Date End Date Lu Estrada MD [address] [place] [address] PCP - General Family Medicine 03/27/18 documented as of this encounter
--- OUTSIDE RECORDS SUMMARY | 2025-01-10 17:00 | XMS_ITS | Encounter Summary ---
Author Organization [employer] Address [address] [place] [address] 7 [place] [address] Care Team Providers Care Assembler Brazer Name Role Phone Lu Estrada MD Primary Care Provider [phone] Encounter Details Date Type Department Care Team (Latest Contact Info) Description 01/01/2019 Abstract [facility] CONVERSIONS Dental, Provider, DDS Social History [...] Description 02/18/2025 10:45 AM EST Office Visit [facility] MEDICINE 230 [place] [address] Lu Estrada MD [address] [place] [address] documented as of this encounter Visit Diagnoses Not on filedocumented in this encounter Care Teams Assembler Brazer Relationship Specialty Start Date End Date Lu Estrada MD [address] [place] [address] PCP - General Family Medicine 03/27/18 documented as of this encounter
--- OUTSIDE RECORDS SUMMARY | 2025-01-10 17:00 | XMS_ITS | Encounter Summary ---
Demographics Address [address] [facility] [address] [place] [address] Home Phone Work Phone Mobile Phone Email Address Preferred Language en Marital Status Single Sabianist Affiliation Unknown Race Other Race Ethnic Group Unknown Author Organization [employer] Address [address] [facility] [address] 7t [place] [address] Care Team Providers Care Metal Or Wood Blocker Name Role Phone Lu Estrada MD Primary Care Provider [phone] Encounter Details Date Type Department Care Team ([facility] Contact Info) Description 01/10/2025 Orders Only [facility] External Provider, [facility] Social History Tobacco Use Types Packs/Day Years [...] Description 02/18/2025 10:45 AM EST Office Visit [facility] MEDICINE 230 [place] [address] Lu Estrada MD [address] [place] [address] documented as of this encounter Procedures Procedure Name Priority Date/Time Associated Diagnosis Comments US PELVIS TRANSVAGINAL Routine 01/10/2025 3:03 PM EDT documented in this encounter Results * US Pelvis Transvaginal (01/10/2025 3:03 PM EDT) Anatomical Region Laterality Modality Pelvis Ultrasound 01/10/2025 3:03 PM EDT Narrative 01/10/2025 4:02 PM EDT [address] [address] Ultrasound Report Signed Patient: Shruti Winters MR#: [id number] : 1985 Acct:[id number] Age/Sex: 39 / F ADM Date: 01/10/25 Loc: HO.US Attending Dr: Kaden Jett MD Ordering Physician: Kaden Jett MD Date of Service: 01/10/25 Procedure(s): US pelvic and transvaginal Accession Number(s): [id number] cc: Lu Estrada MD; Kaden Jett MD [...] 01/10/25 1558 DD/ 1503 TD/TT: 01/10/25 1525 Conveyor Belt Repairer: Procedure Note Donotuseinterpreter, Image - 01/10/2025 [place] [address] Ultrasound Report Signed Patient: Ajay Winters#: [id number] : 1985Acct:[id number] Age/Sex: 39 / FADM Date: 01/10/25 Loc: HO.US Attending Dr: Kaden Jett MD Ordering Physician: Kaden Jett MD Date of Service: 01/10/25 Procedure(s): US pelvic and transvaginal Accession Number(s): [id number] cc: Lu Estrada MD; Kaden Jett MD [...] Agustín Mann MD 01/10/2025 03:58 PM EDT RP Dictated By: Agustín Mann MD Signed By: <Electronically signed by Agustín Mann MD in OV> 01/10/25 1558 DD/ 1503 TD/TT: 01/10/25 1525 Conveyor Belt Repairer: [facility] External Provider IMG US PROCEDURES Final Result documented in this encounter Visit Diagnoses Not on filedocumented in this encounter Additional Health Concerns Assessment Noted Time PHQ-9 Depression Total Score: 5 01/22/20 24 3:06 PM EDT documented as of this encounter Care Teams Metal Or Wood Blocker Relationship Specialty Start Date End Date Lu Estrada MD [address] [place] [address] PCP - General Family Medicine 03/27/18 documented as of this encounter
--- OUTSIDE RECORDS SUMMARY | 2025-01-10 17:00 | XMS_ITS | Encounter Summary ---
Author Organization [employer] Address [address] [place] [address] 7t [place] [address] Care Team Providers Care Roll Plugger Machine Operator Name Role Phone Lu Estrada MD Primary Care Provider [phone] Reason for Referral * Consultation (Routine) - Authorized Specialty Diagnoses / Procedures Referred By Amanda mead Referred To Contact Orthopaedic Surgery Diagnoses Ganglion cyst of wrist, right Lu Estrada MD [address] [place] [address] Phone: tel: fax: [facility] Referral ID Status Reason Start Date Expiration Date Visits Requested Visits Authorized [id number] Authorized Specialty Services Required 06/25/2024 06/25/2025 12 12 Encounter Details Date Type Department Care Team (Late st Contact Info) Description 06/24/2024 Orders Only [facility] MEDICINE [address] [place] [address] [phone] Lu Estrada MD [address] [place], [place] [phone] Ganglion cyst of wrist, right (Primary Dx) [...] Description 02/18/2025 10:45 AM EST Office Visit [facility] MEDICINE 230 [place] [address] Lu Estrada MD [address] [place] [address] Scheduled Referrals Name Type Priority Associated Diagnoses [...] documented as of this encounter Care Teams Roll Plugger Machine Operator Relationship Specialty Start Date End Date Lu Estrada MD [address] [place] [address] PCP - General Family Medicine 03/27/18 documented as of this encounter
--- OUTSIDE RECORDS SUMMARY | 2025-01-10 17:01 | XMS_ITS | Encounter Summary ---
Author Organization [employer] Address [address] [facility] 7t [place] [address] Care Team Providers Care Tank Stave Assembler Name Role Phone Lu Estrada MD Primary Care Provider [phone] Reason for Visit * Reason Comments Med Refill Encounter Details Date Type Department Care Team ([facility] st Contact Info) Description 03/09/2023 Refill [facility] MEDICINE [address] [place] [address] Lorri Eduardo, 230 [place] [address] Social History Tobacco Use Types Packs/Day Years [...] Description 02/18/2025 10:45 AM EST Office Visit [facility] MEDICINE [address] [place] [address] Lu Estrada MD 230 [place] [address] documented as of this encounter Visit Diagnoses Not on filedocumented in this encounter Additional Health Concerns Assessment Noted Time PHQ-9 Depression Total Score: 0 03/08/20 23 11:18 AM EST documented as of this encounter Care Teams Tank Stave Assembler Relationship Specialty Start Date End Date Lu Estrada MD [address] [place] [address] PCP - General Family Medicine 03/27/18 documented as of this encounter
--- OUTSIDE RECORDS SUMMARY | 2025-01-10 17:01 | XMS_ITS | Encounter Summary ---
Author Organization [employer] Address [address] [place] [address] 7t [place] [address] Care Team Providers Care Lye Machine Operator Name Role Phone Lu Estrada MD Primary Care Provider Reason for Visit * Reason Comments Med Refill Encounter Details Date Type Department Care Team ([facility] Contact Info) Description 04/22/2022 Refill [facility] CHC MED & PEDS [address] [place] [address] Vandana Black, ANP [address] [place] [address] Social History Tobacco Use Types Packs/Day Years [...] Upcoming Encounters Date Type Department Care Team ([facility] Contact Info) Description 02/18/2025 10:45 AM EST Office Visit [facility] MEDICINE [address] [place], [place] [phone] Lu Estrada MD [address] [place], [place] [phone] documented as of this encounter Visit Diagnoses Not on filedocumented in this encounter Care Teams Lye Machine Operator Relationship Specialty Start Date End Date Lu Estrada MD 230 [place], [place] [phone] PCP - General Family Medicine 03/27/18 documented as of this encounter
--- OUTSIDE RECORDS SUMMARY | 2025-01-10 17:01 | XMS_ITS | Encounter Summary ---
Demographics Address [address] [facility] [address] [place] [address] Home Phone Work Phone Mobile Phone Email Address Preferred Language en Marital Status Single Latter-Day Affiliation Unknown Race Other Race Ethnic Group Unknown Author Organization [employer] Address [address] [facility] 7t [place] [address] Care Team Providers Care Metal Wire Coating Operator Name Role Phone Lu Estrada MD Primary Care Provider [phone] Encounter Details Date Type Department Care Team ([facility] Contact Info) Description 03/28/2024 Orders Only [facility] CHC MED & PEDS [address] [place] [address] Elliot Antunez MD [address] [place] [address] Social History Tobacco Use Types Packs/Day Years [...] Description 02/18/2025 10:45 AM EST Office Visit [facility] MEDICINE [address] [place] [address] Lu Estrada MD [address] [place] [address] documented as of this encounter Visit Diagnoses Not on filedocumented in this encounter Additional Health Concerns Assessment Noted Time PHQ-9 Depression Total Score: 5 01/22/20 24 3:06 PM EDT documented as of this encounter Care Teams Metal Wire Coating Operator Relationship Specialty Start Date End Date Lu Estrada MD [address] [place] [address] PCP - General Family Medicine 03/27/18 documented as of this encounter
--- OUTSIDE RECORDS SUMMARY | 2025-01-10 17:01 | XMS_ITS | Encounter Summary ---
Author Organization [employer] Address [address] [facility] 7t [place] [address] Care Team Providers Care Dye Tub Operator Name Role Phone Lu Estrada MD Primary Care Provider [phone] Reason for Visit * Reason Comments Med Refill Encounter Details Date Type Department Care Team ([facility] Contact Info) Description 03/09/2023 Refill [facility] MEDICINE 230 [place] [address] Lu Estrada MD [address] [place] [address] Social History Tobacco Use Types Packs/Day Years [...] Description 02/18/2025 10:45 AM EST Office Visit [facility] MEDICINE [address] [place] [address] Lu Estrada MD [address] [place] [address] documented as of this encounter Visit Diagnoses Not on filedocumented in this encounter Additional Health Concerns Assessment Noted Time PHQ-9 Depression Total Score: 0 03/08/20 23 11:18 AM EST documented as of this encounter Care Teams Dye Tub Operator Relationship Specialty Start Date End Date Lu Estrada MD [address] [place] [address] PCP - General Family Medicine 03/27/18 documented as of this encounter
--- OUTSIDE RECORDS SUMMARY | 2025-01-10 17:01 | XMS_ITS | Encounter Summary ---
Author Organization [employer] Address [address] [facility] 7t [place] [address] Care Team Providers Care Jailor Name Role Phone Lu Estrada MD Primary Care Provider [phone] Reason for Visit * Reason Onset Date Comments Letter for School/Work 04/27/2023 Encounter Details Date Type Department Care Team ([facility] Contact Info) Description 04/27/[address] [facility] MEDICINE 230 [place] [address] Lu Estrada MD [address] [place] [address] Letter for School/Work Social History Tobacco Use [...] 10:45 AM EST Office Visit [facility] MEDICINE [address] [place] [address] Lu sEtrada MD 230 [place] [address] documented as of this encounter Visit Diagnoses Not on filedocumented in this encounter Additional Health Concerns Assessment Noted Time PHQ-9 Depression Total Score: 0 03/08/20 23 11:18 AM EST documented as of this encounter Care Teams Jailor Relationship Specialty Start Date End Date Lu Estrada MD [address] [place] [address] PCP - General Family Medicine 03/27/18 documented as of this encounter
--- OUTSIDE RECORDS SUMMARY | 2025-01-10 17:01 | XMS_ITS | Encounter Summary ---
Author Organization [employer] Address [address] [facility] 7t [place] [address] Care Team Providers Care Recoil Spring Winder Name Role Phone Lu Estrada MD Primary Care Provider [phone] Reason for Visit * Reason Comments Med Refill Encounter Details Date Type Department Care Team ([facility] st Contact Info) Description 05/01/2023 Refill [facility] MEDICINE 230 [place] [address] Lorri Eduardo, 230 [place] [address] Social History Tobacco Use Types Packs/Day Years [...] 10:45 AM EST Office Visit [facility] MEDICINE [address] [place] [address] Lu Estrada MD 230 [place] [address] documented as of this encounter Visit Diagnoses Not on filedocumented in this encounter Additional Health Concerns Assessment Noted Time PHQ-9 Depression Total Score: 0 03/08/20 23 11:18 AM EST documented as of this encounter Care Teams Recoil Spring Winder Relationship Specialty Start Date End Date Lu Estrada MD [address] [place] [address] PCP - General Family Medicine 03/27/18 documented as of this encounter
--- OUTSIDE RECORDS SUMMARY | 2025-01-10 17:01 | XMS_ITS | Encounter Summary ---
Demographics Address [address] [facility] [address] [place] [address] Home Phone Work Phone Mobile Phone Email Address Preferred Language en Marital Status Single Pentecostalism Affiliation Unknown Race Other Race Ethnic Group Unknown Author Organization [employer] Address [address] [facility] 7t [place] [address] Care Team Providers Care Contact Lens Fitter Name Role Phone Lu Estrada MD Primary Care Provider [phone] Reason for Visit * Reason Comments Med Refill Encounter Details Date Type Department Care Team ([facility] st Contact Info) Description 06/18/2022 Refill [facility] CHC MED & PEDS [address] [place] [address] Vandana Black, ANP 230 [place] [address] Social History Tobacco Use Types Packs/Day Years [...] 10:45 AM EST Office Visit [facility] MEDICINE 230 [place], [place] [phone] Lu Estrada MD 230 [place], [place] [phone] documented as of this encounter Visit Diagnoses Not on filedocumented in this encounter Care Teams Contact Lens Fitter Relationship Specialty Start Date End Date Lu Estrada MD [address] [place] [address] [phone] PCP - General Family Medicine 03/27/18 documented as of this encounter
--- OUTSIDE RECORDS SUMMARY | 2025-01-10 17:01 | XMS_ITS | Encounter Summary ---
Author Organization [employer] Address [address] [facility] 7t [place] [address] Care Team Providers Care Compliance Reviewer Name Role Phone Lu Estrada MD Primary Care Provider [phone] Reason for Visit * Reason Onset Date Comments Appointment 07/05/2022 Encounter Details Date Type Department Care Team ([facility] st Contact Info) Description 07/05/2022 Telephone [facility] ADULT DENTAL [address] [place] [address] Raymon, Heidi [address] [place] [address] Appointment Social History Tobacco Use Types Packs/Day [...] Description 02/18/2025 10:45 AM EST Office Visit [facility] MEDICINE [address] [place], [place] [phone] Lu Estrada MD 230 [place], [place] [phone] documented as of this encounter Visit Diagnoses Not on filedocumented in this encounter Care Teams Compliance Reviewer Relationship Specialty Start Date End Date Lu Estrada MD [address] [place] [address] PCP - General Family Medicine 03/27/18 documented as of this encounter
--- OUTSIDE RECORDS SUMMARY | 2025-01-10 17:01 | XMS_ITS | Encounter Summary ---
Demographics Address [address] [facility] [address] [place] [address] Home Phone Work Phone Mobile Phone Email Address Preferred Language en Marital Status Single Christian Affiliation Unknown Race Other Race Ethnic Group Unknown Author Organization [employer] Address [address] [facility] [address] 7t [place] [address] Care Team Providers Care Industrial Technology Education Teacher Name Role Phone Lu Estrada MD Primary Care Provider [phone] Reason for Visit * Reason Comments Med Refill Encounter Details Date Type Department Care Team ([facility] Contact Info) Description 03/09/2023 Refill [facility] CHC MED & PEDS [address] [place] [address] Vandana Black, ANP [address] [place] [address] Social History Tobacco Use Types Packs/Day Years [...] 10:45 AM EST Office Visit [facility] MEDICINE [address] [place] [address] Lu Estrada MD [address] [place] [address] documented as of this encounter Visit Diagnoses Not on filedocumented in this encounter Additional Health Concerns Assessment Noted Time PHQ-9 Depression Total Score: 0 03/08/20 23 11:18 AM EST documented as of this encounter Care Teams Industrial Technology Education Teacher Relationship Specialty Start Date End Date Lu Estrada MD [address] [place] [address] PCP - General Family Medicine 03/27/18 documented as of this encounter
--- OUTSIDE RECORDS SUMMARY | 2025-01-10 17:01 | XMS_ITS | Encounter Summary ---
Author Organization [employer] Address [address] [facility] [address] 7t [place] [address] Care Team Providers Care Searchlight Operator Name Role Phone Lu Estrada MD Primary Care Provider [phone] Encounter Details Date Type Department Care Team ([facility] Contact Info) Description 05/29/2023 Abstract [facility] MEDICINE 230 [place], [place] [phone] Lu Estrada MD 230 [place], [place] [phone] Social History Tobacco Use Types Packs/Day Years [...] Visit [facility] MEDICINE [address] [place] [address] Lu Estrada MD [address] [place] [address] documented as of this encounter Procedures Procedure [...] documented as of this encounter Care Teams Searchlight Operator Relationship Specialty Start Date End Date Lu Estrada MD [address] [place] [address] [phone] PCP - General Family Medicine 03/27/18 documented as of this encounter
--- OUTSIDE RECORDS SUMMARY | 2025-01-10 17:01 | XMS_ITS | Encounter Summary ---
Demographics Address [address] [facility] [address] [place] [address] Home Phone Work Phone Mobile Phone Email Address Preferred Language en Marital Status Single Buddhism Affiliation Unknown Race Other Race Ethnic Group Unknown Author Organization [employer] Address [address] 7t [place] [address] Care Team Providers Care Superintendent Meters Name Role Phone Lu Estrada MD Primary Care Provider [phone] Encounter Details Date Type Department Care Team ([facility] st Contact Info) Description 04/30/2024 Orders Only [facility] MEDICINE [address] [place] [address] Lu Estrada MD 230 [place], [place] [phone] Abnormal CT of the abdomen (Primary Dx); [...] Description 02/18/2025 10:45 AM EST Office Visit [facility] MEDICINE [address] [place], [place] [phone] Lu Estrada MD [address] [place] [address] documented as of this encounter Procedures Procedure Name Priority Date/Time Associated Diagnosis Comments BI MAMMOGRAM DIAGNOSTIC TOMOSYNTHESIS BILATERAL Routine 06/07/2024 10:00 AM EDT documented in this encounter Results * BI Mammogram Diagnostic Tomosynthesis Bilateral (06/07/2024 10:00 AM EDT) Anatomical Region Laterality Modality Breast Bilateral Mammography 06/07/2024 10:0 0 AM EDT Narrative 06/07/2024 11:42 AM EDT [facility] [address] [place] [address] Mammography Report Signed Patient: Shruti Winters MR#: [id number] : 1985 Acct:[id number] Age/Sex: 39 / F ADM Date: 06/07/24 Loc: HO.MAMMO Attending Dr: Lu Estrada MD Ordering Physician: Lu Estrada MD Results: 1Negative Date of Service: 06/07/24 Follow Up: Mammo at 42 or e arlier if clinically needed Procedure(s): MM tomosynthesis diagnostic BI Accession Number(s): [id number] cc: Lu Estrada MD EXAMINATION: MM DIAGNOSTIC [...] 06/07/24 1139 DD/ 1000 TD/TT: 06/07/24 1018 Certified Ophthalmic Technologist: Procedure Note Donotuseinterpreter, Image - 06/07/2024 [facility] [address] [place] [address] Dr. [place], [place] [address] Mammography Report Signed Patient: Ajay Winters#: [id number] : 1985Acct:[id number] Age/Sex: 39 / FADM Date: 06/07/24 Loc: HO.MAMMO Attending Dr: Lu Estrada MD Ordering Physician: Lu Estrada MDResults: 1Negative Date of Service: 06/07/24Follow Up: Mammo at 42 or e arlier if clinically needed Procedure(s): MM tomosynthesis diagnostic BI Accession Number(s): [id number] cc: Lu Estrada MD EXAMINATION: MM DIAGNOSTIC [...] 06/07/24 1139 DD/ 1000 TD/TT: 06/07/24 1018 Certified Ophthalmic Technologist: Lu Estrada MD IMG BI PROCEDURES Final [...] documented as of this encounter Care Teams Superintendent Meters Relationship Specialty Start Date End Date Lu Estrada MD [address] [place] [address] PCP - General Family Medicine 03/27/18 documented as of this encounter
== END 2025-01-10 14:31 | disposition home or self-care (01) ==
LOC: HO.US 14:30
PROVIDERS: PCP Family Medicine; Visit Provider Obstetrics & Gynecology
DX: R10.20 Pelvic and perineal pain unspecified side (principal)
CPT/HCPCS: 76830; 76856

== ENCOUNTER → 2025-01-10 14:32 | Outpatient (BNV) | payer MEDICAID, SELFPAY | PROVIDERS: PCP Family Medicine; Visit Provider Radiology Diagnostic Radiology | DX: N85.8 Other specified noninflammatory disorders of uterus (principal) | CPT/HCPCS: 76830; 76856 ==

== ENCOUNTER 2025-01-16 14:13 | Outpatient (REF) | payer MEDICAID, SELFPAY ==
[2025-01-16 16:01] LABS: MANUAL DIFF FLAG NO
[2025-01-16 16:16] LABS: Hematocrit 37.5 % (37.0-47.0); Hemoglobin 12.4 g/dl (12.0-16.0); Imm Gran Abs Auto 0.01 X10*3/uL (0.00-0.03); Imm Gran Pct Auto 0.2 % (0.0-0.4); Lymphocytes Absolute Auto 3.0 X10*3/uL (1.2-4.9); Mean Corpuscular HGB Conc 33.1 g/dl (31.0-35.0); Mean Corpuscular Hemoglobin 28.6 pg (27.0-33.0); Mean Corpuscular Volume 86.6 fL (80.0-98.0); NRBC Abs Auto 0.000 X10*3/uL (0.0-0.012); NRBC Pct Auto 0.0 /100WBC (0.0-0.2); Platelet Count 241 X10*3/uL (160-400); Red Blood Count 4.33 X10*6/uL (4.20-5.50); White Blood Count 5.6 X10*3/uL (4.8-10.8)
[2025-01-16 17:06] LABS: Anion Gap 11 (12-20); Blood Urea Nitrogen 11 mg/dL (9-16); Calcium 8.6 mg/dL (8.4-10.2); Carbon Dioxide 23 mmol/L (22-29); Chloride 110 mmol/L (96-108); Estimated Glomerular Filt Rate > 60; Potassium 3.8 mmol/L (3.3-5.1); Sodium 140 mmol/L (135-145)
--- OUTSIDE RECORDS SUMMARY | 2025-01-16 18:06 | XMS_ITS | Encounter Summary ---
Author Organization [employer] Address [address] [facility] 7t [place] [address] Care Team Providers Care Camp Tender Name Role Phone Lu Estrada MD Primary Care Provider [phone] Reason for Visit * Reason Comments Med Refill Encounter Details Date Type Department Care Team ([facility] st Contact Info) Description 05/01/2023 Refill [facility] MEDICINE 230 [place] [address] Lorri Eduardo, [address] [place] [address] Social History Tobacco Use Types Packs/Day Years [...] Office Visit [facility] MEDICINE [address] [place] [phone] Lu Estrada MD 230 [place] [address] documented as of this encounter Visit Diagnoses Not on filedocumented in this encounter Additional Health Concerns Assessment Noted Time PHQ-9 Depression Total Score: 0 03/08/20 23 11:18 AM EST documented as of this encounter Care Teams Camp Tender Relationship Specialty Start Date End Date Lu Estrada MD [address] [place] [address] PCP - General Family Medicine 03/27/18 documented as of this encounter
--- OUTSIDE RECORDS SUMMARY | 2025-01-16 18:06 | XMS_ITS | Encounter Summary ---
Author Organization [employer] Address [address] 7t [place] [address] Care Team Providers Care Camp Advisor Name Role Phone Lu Estrada MD Primary Care Provider [phone] Encounter Details Date Type Department Care Team ([facility] Contact Info) Description 05/29/2023 Abstract [facility] MEDICINE 230 [place], [place] [phone] Lu Estrada MD 230 [place], [place] [phone] Social History Tobacco Use Types Packs/Day Years [...] 02/18/2025 10:45 AM EST Office Visit [facility] MEDICINE [address] [place] [address] Lu Estrada MD [address] [place] [address] documented as of this encounter Procedures Procedure [...] as of this encounter Care Teams Camp Advisor Relationship Specialty Start Date End Date Lu Estrada MD [address] [place] [address] [phone] PCP - General Family Medicine 03/27/18 documented as of this encounter
--- OUTSIDE RECORDS SUMMARY | 2025-01-16 18:06 | XMS_ITS | Encounter Summary ---
Author Organization [employer] Address [address] [place] [address] 7 [place] [address] Care Team Providers Care Wiring Inspector Name Role Phone Lu Estrada MD Primary Care Provider [phone] Reason for Visit * Reason Comments Med Refill Encounter Details Date Type Department Care Team ([facility] Contact Info) Description 04/19/2022 Refill [facility] MEDICINE [address] [place] [address] [phone] Leatha Chong MD [address] [place] [address] [phone] Primary hypertension (Primary Dx) Social History Tobacco [...] Description 02/18/2025 10:45 AM EST Office Visit [facility] MEDICINE 230 [place], [place] [phone] Lu Estrada MD 230 [place], [place] [phone] documented as of this encounter Visit Diagnoses Diagnosis Primary hypertension- Primary Unspecified essential hypertension documented in this encounter Care Teams Wiring Inspector Relationship Specialty Start Date End Date Lu Estrada MD 230 [place] [address] PCP - General Family Medicine 03/27/18 documented as of this encounter
--- OUTSIDE RECORDS SUMMARY | 2025-01-16 18:06 | XMS_ITS | Encounter Summary ---
Author Organization [employer] Address [address] [place] [address] 7t [place] [address] Care Team Providers Care Poker Prop Player Name Role Phone Lu Estrada MD Primary Care Provider [phone] Encounter Details Date Type Department Care Team ([facility] Contact Info) Description 10/17/2022 Abstract [facility] ADULT DENTAL 230 [place], [place] [phone] Mc Ennisaris [address] [place] [address] Social History Tobacco Use Types Packs/Day Years [...] Upcoming Encounters Date Type Department Care Team ([facility] Contact Info) Description 02/18/2025 10:45 AM EST Office Visit [facility] MEDICINE [address] [place], [place] [phone] Lu Estrada MD 230 [place] [address] documented as of this encounter Visit Diagnoses Not on filedocumented in this encounter Care Teams Poker Prop Player Relationship Specialty Start Date End Date Lu Estrada MD [address] [place] [address] PCP - General Family Medicine 03/27/18 documented as of this encounter
--- OUTSIDE RECORDS SUMMARY | 2025-01-16 18:06 | XMS_ITS | Encounter Summary ---
Author Organization [employer] Address [address] [place] [address] 7 [place] [address] Care Team Providers Care Camp Attendant Name Role Phone Lu Estrada MD Primary Care Provider [phone] Encounter Details Date Type Department Care Team (Latest Contact Info) Description 07/08/2020 Abstract [facility] Dental, Provider, DDS Social [...] Description 02/18/2025 10:45 AM EST Office Visit [facility] MEDICINE [address] [place] [address] Lu Estrada MD 230 [place] [address] documented as of this encounter Visit Diagnoses Not on filedocumented in this encounter Care Teams Camp Attendant Relationship Specialty Start Date End Date Lu Estrada MD 230 [place] [address] PCP - General Family Medicine 03/27/18 documented as of this encounter
--- OUTSIDE RECORDS SUMMARY | 2025-01-16 18:06 | XMS_ITS | Encounter Summary ---
Demographics Address [address] [facility] [address] [place] [address] Home Phone Work Phone Mobile Phone Email Address Preferred Language en Marital Status Single Mormon Affiliation Unknown Race Other Race Ethnic Group Unknown Author Organization [employer] Address [address] [facility] 7t [place] [address] Care Team Providers Care Strategic Consultant Name Role Phone Lu Estrada MD Primary Care Provider [phone] Encounter Details Date Type Department Care Team ([facility] st Contact Info) Description 04/30/2024 Orders Only [facility] MEDICINE [address] [place] [address] Lu Estrada MD 230 [place], [place] [phone] Abnormal CT of the abdomen (Primary Dx); [...] Description 02/18/2025 10:45 AM EST Office Visit [facility] MEDICINE [address] [place], [place] [phone] Lu Estrada MD 230 [place] [address] documented as of this encounter Procedures Procedure Name Priority Date/Time Associated Diagnosis Comments BI MAMMOGRAM DIAGNOSTIC TOMOSYNTHESIS BILATERAL Routine 06/07/2024 10:00 AM EDT documented in this encounter Results * BI Mammogram Diagnostic Tomosynthesis Bilateral (06/07/2024 10:00 AM EDT) Anatomical Region Laterality Modality Breast Bilateral Mammography 06/07/2024 10:0 0 AM EDT Narrative 06/07/2024 11:42 AM EDT [facility] [address] [place] [address] Mammography Report Signed Patient: Shruti Winters MR#: [id number] : 1985 Acct:[id number] Age/Sex: 39 / F ADM Date: 06/07/24 Loc: HO.MAMMO Attending Dr: Lu Estrada MD Ordering Physician: Lu Estrada MD Results: 1Negative Date of Service: 06/07/24 Follow Up: Mammo at 42 or e arlier if clinically needed Procedure(s): MM tomosynthesis diagnostic BI Accession Number(s): [id number] cc: Lu Estrada MD EXAMINATION: MM DIAGNOSTIC [...] 06/07/24 1139 DD/ 1000 TD/TT: 06/07/24 1018 Plow And Boring Machine Tender: Procedure Note Donotuseinterpreter, Image - 06/07/2024 [facility] [address] [place] [address] Dr. Webber, [place] [address] Mammography Report Signed Patient: Ajay Winters#: [id number] : 1985Acct:[id number] Age/Sex: 39 / FADM Date: 06/07/24 Loc: HO.MAMMO Attending Dr: Lu Estrada MD Ordering Physician: Lu Estrada MDResults: 1Negative Date of Service: 06/07/24Follow Up: Mammo at 42 or e arlier if clinically needed Procedure(s): MM tomosynthesis diagnostic BI Accession Number(s): [id number] cc: Lu Estrada MD EXAMINATION: MM DIAGNOSTIC [...] 06/07/24 1139 DD/ 1000 TD/TT: 06/07/24 1018 Plow And Boring Machine Tender: Lu Estrada MD IMG BI PROCEDURES Final [...] documented as of this encounter Care Teams Strategic Consultant Relationship Specialty Start Date End Date Lu Estrada MD 230 [place] [address] PCP - General Family Medicine 03/27/18 documented as of this encounter
--- OUTSIDE RECORDS SUMMARY | 2025-01-16 18:06 | XMS_ITS | Encounter Summary ---
Author Organization [employer] Address [address] [place] [address] 7 [place] [address] Care Team Providers Care Developmental Training Counselor Name Role Phone Lu Estrada MD Primary Care Provider [phone] Reason for Visit * Reason Comments Med Refill Encounter Details Date Type Department Care Team (Late Contact Info) Description 06/08/2022 Refill [facility] MEDICINE [address] [place] [address] [phone] Danny Lundy MD [address] [place] [address] [phone] Social History Tobacco Use Types Packs/Day Years [...] Description 02/18/2025 10:45 AM EST Office Visit [facility] MEDICINE [address] [place] [address] Lu Estrada MD [address] [place] [address] [phone] documented as of this encounter Visit Diagnoses Not on filedocumented in this encounter Care Teams Developmental Training Counselor Relationship Specialty Start Date End Date Lu Estrada MD [address] [place] [address] PCP - General Family Medicine 03/27/18 documented as of this encounter
--- OUTSIDE RECORDS SUMMARY | 2025-01-16 18:06 | XMS_ITS | Encounter Summary ---
Author Organization [employer] Address [address] [place] [address] 7 [place] [address] Care Team Providers Care Airplane Refueler Name Role Phone Lu Estrada MD Primary Care Provider [phone] Encounter Details Date Type Department Care Team (Late Contact Info) Description 02/23/2022 Abstract [facility] ADULT DENTAL 230 [place] [address] Dental, Provider, DDS Social History Tobacco Use [...] Description 02/18/2025 10:45 AM EST Office Visit [facility] MEDICINE [address] [place] [address] Lu Estrada MD [address] [place] [address] documented as of this encounter Procedures Procedure Name Priority Date/Time Associated Diagnosis Comments 14 O AMALGAM FILLING Routine 02/23/2022 12:00 AM EST documented in this encounter Visit Diagnoses Not on filedocumented in this encounter Care Teams Airplane Refueler Relationship Specialty Start Date End Date Lu Estrada MD [address] [place] [address] PCP - General Family Medicine 03/27/18 documented as of this encounter
--- OUTSIDE RECORDS SUMMARY | 2025-01-16 18:06 | XMS_ITS | Encounter Summary ---
Author Organization [employer] Address [address] [place] [address] 7t [place] [address] Care Team Providers Care Mingler Operator Name Role Phone Lu Estrada MD Primary Care Provider [phone] Encounter Details Date Type Department Care Team ([facility] Contact Info) Description 03/18/2022 Abstract [facility] ADULT DENTAL [address] [place] [address] Viet Kellogg DDS [address] [place] [address] Social History Tobacco Use Types Packs/Day Years [...] Upcoming Encounters Date Type Department Care Team ([facility] Contact Info) Description 02/18/2025 10:45 AM EST Office Visit [facility] MEDICINE 230 [place] [address] Lu Estrada MD [address] [place] [address] documented as of this encounter Visit Diagnoses Not on filedocumented in this encounter Care Teams Mingler Operator Relationship Specialty Start Date End Date Lu Estrada MD 230 [place] [address] PCP - General Family Medicine 03/27/18 documented as of this encounter
--- OUTSIDE RECORDS SUMMARY | 2025-01-16 18:06 | XMS_ITS | Encounter Summary ---
Author Organization [employer] Address [address] [place] [address] 7t [place] [address] Care Team Providers Care Pressure Supervisor Name Role Phone Lu Estrada MD Primary Care Provider [phone] Reason for Referral * Consultation (Routine) - Closed Specialty Diagnoses / Procedures Referred By Amanad mead Referred To Contact Orthopaedic Surgery Diagnoses Ganglion cyst of wrist, right Lu Estrada MD [address] [place] [address] Phone: tel: fax: [facility] Referral ID Status Reason Start Date Expiration Date V isits Requested Visits Authorized [id number] Closed Specialty Services Required 06/25/2024 06/25/2025 12 12 Encounter Details Date Type Department Care Team (Late st Contact Info) Description 06/24/2024 Orders Only [facility] MEDICINE [address] [place] [address] [phone] Lu Estrada MD [address] [place], [place] [phone] Ganglion cyst of wrist, right (Primary Dx) [...] Description 02/18/2025 10:45 AM EST Office Visit [facility] MEDICINE 230 [place], [place] [phone] Lu Estrada MD [address] [place] [address] Scheduled Referrals Name Type Priority Associated Diagnoses [...] documented as of this encounter Care Teams Pressure Supervisor Relationship Specialty Start Date End Date Lu Estrada MD [address] [place] [address] PCP - General Family Medicine 03/27/18 documented as of this encounter
--- OUTSIDE RECORDS SUMMARY | 2025-01-16 18:06 | XMS_ITS | Encounter Summary ---
Author Organization [employer] Address [address] 7t [place] [address] Care Team Providers Care Funeral Director/Embalmer/Owner Name Role Phone Lu Estrada MD Primary Care Provider [phone] Reason for Visit * Reason Onset Date Comments Appointment 07/05/2022 Encounter Details Date Type Department Care Team ([facility] st Contact Info) Description 07/05/2022 Telephone [facility] ADULT DENTAL [address] [place] [address] Raymon, Heidi [address] [place] [address] Appointment Social History Tobacco Use Types Packs/Day [...] 10:45 AM EST Office Visit [facility] MEDICINE [address] [place], [place] [phone] Lu Estrada MD 230 [place], [place] [phone] documented as of this encounter Visit Diagnoses Not on filedocumented in this encounter Care Teams Funeral Director/Embalmer/Owner Relationship Specialty Start Date End Date Lu Estrada MD [address] [place] [address] PCP - General Family Medicine 03/27/18 documented as of this encounter
--- OUTSIDE RECORDS SUMMARY | 2025-01-16 18:06 | XMS_ITS | Encounter Summary ---
Author Organization [employer] Address [address] [facility] 7t [place] [address] Care Team Providers Care Asphalt Plant Worker Name Role Phone Lu Estrada MD Primary Care Provider [phone] Reason for Visit * Reason Onset Date Comments Letter for School/Work 04/27/2023 Encounter Details Date Type Department Care Team ([facility] Contact Info) Description 04/27/2023 Telephone [facility] MEDICINE 230 [place] [address] Lu Estrada MD [address] [place] [address] Letter for School/Work Social History Tobacco Use [...] EST Office Visit [facility] MEDICINE [address] [place] [address] Lu Estrada MD 230 [place] [address] documented as of this encounter Visit Diagnoses Not on filedocumented in this encounter Additional Health Concerns Assessment Noted Time PHQ-9 Depression Total Score: 0 03/08/20 23 11:18 AM EST documented as of this encounter Care Teams Asphalt Plant Worker Relationship Specialty Start Date End Date Lu Estrada MD [address] [place] [address] PCP - General Family Medicine 03/27/18 documented as of this encounter
--- OUTSIDE RECORDS SUMMARY | 2025-01-16 18:06 | XMS_ITS | Encounter Summary ---
Author Organization [employer] Address [address] [place] [address] 7 [place] [address] Care Team Providers Care Vp & General Counsel Name Role Phone Lu Estrada MD Primary Care Provider [phone] Encounter Details Date Type Department Care Team (Late st Contact Info) Description 04/04/2022 Abstract [facility] ADULT DENTAL 230 [place] [address] Viet Kellogg DDS [address] [place] [address] Social History Tobacco Use Types Packs/Day Years [...] Description 02/18/2025 10:45 AM EST Office Visit [facility] MEDICINE [address] [place] [address] Lu Estrada MD 230 [place] [address] documented as of this encounter Visit Diagnoses Not on filedocumented in this encounter Care Teams Vp & General Counsel Relationship Specialty Start Date End Date Lu Estrada MD [address] [place] [address] PCP - General Family Medicine 03/27/18 documented as of this encounter
--- OUTSIDE RECORDS SUMMARY | 2025-01-16 18:06 | XMS_ITS | Encounter Summary ---
Author Organization [employer] Address [address] [place] [address] 7t [place] [address] Care Team Providers Care Backup Administrative Coordinator Name Role Phone Lu Estrada MD Primary Care Provider [phone] Encounter Details Date Type Department Care Team ([facility] Contact Info) Description 10/17/2022 Abstract [facility] 230 [place], [place] [phone] Mc Ennisaris [address] [place] [address] Social History Tobacco Use Types Packs/Day Years [...] Department Care Team ([facility] Contact Info) Description 02/18/2025 10:45 AM EST Office Visit [facility] 230 [place], [place] [phone] Lu Estrada MD [address] [place] [address] documented as of this encounter Visit Diagnoses Not on filedocumented in this encounter Care Teams Backup Administrative Coordinator Relationship Specialty Start Date End Date Lu Estrada MD [address] [place] [address] PCP - General Family Medicine 03/27/18 documented as of this encounter
--- OUTSIDE RECORDS SUMMARY | 2025-01-16 18:06 | XMS_ITS | Encounter Summary ---
Author Organization [employer] Address [address] [place] [address] 7t [place] [address] Care Team Providers Care Ada Accommodation Consultant Name Role Phone Lu Estrada MD Primary Care Provider [phone] Reason for Visit * Reason Comments Med Refill Encounter Details Date Type Department Care Team ([facility] Contact Info) Description 04/22/2022 Refill [facility] [address] [place] [address] Vandana Black, ANP [address] [place] [address] Social History Tobacco Use Types Packs/Day Years [...] Upcoming Encounters Date Type Department Care Team ([facility] Contact Info) Description 02/18/2025 10:45 AM EST Office Visit [facility] MEDICINE 230 [place], [place] [phone] Lu Estrada MD [address] [place], [place] [phone] documented as of this encounter Visit Diagnoses Not on filedocumented in this encounter Care Teams Ada Accommodation Consultant Relationship Specialty Start Date End Date Lu Estrada MD 230 [place], [place] [phone] PCP - General Family Medicine 03/27/18 documented as of this encounter
--- OUTSIDE RECORDS SUMMARY | 2025-01-16 18:06 | XMS_ITS | Encounter Summary ---
Author Organization [employer] Address [address] [place] [address] 7 [place] [address] Care Team Providers Care Montessori Program Director Name Role Phone Lu Estrada MD Primary Care Provider [phone] Encounter Details Date Type Department Care Team (Latest Contact Info) Description 01/01/2019 Abstract [facility] CONVERSIONS Dental, Provider, DDS Social [...] Description 02/18/2025 10:45 AM EST Office Visit [facility] MEDICINE [address] [place] [address] Lu Estrada MD [address] [place] [address] documented as of this encounter Visit Diagnoses Not on filedocumented in this encounter Care Teams Montessori Program Director Relationship Specialty Start Date End Date Lu Estrada MD [address] [place] [address] PCP - General Family Medicine 03/27/18 documented as of this encounter
--- OUTSIDE RECORDS SUMMARY | 2025-01-16 18:06 | XMS_ITS | Encounter Summary ---
Demographics Address [address] [facility] [address] [place] [address] Home Phone Work Phone Mobile Phone Email Address Preferred Language en Marital Status Single Rastafarian Affiliation Unknown Race Other Race Ethnic Group Unknown Author Organization [employer] Address [address] [facility] 7[address] [place] [address] Care Team Providers Care Tile Mason Name Role Phone Lu Estrada MD Primary Care Provider [phone] Encounter Details Date Type Department Care Team ([facility] Contact Info) Description 03/28/2024 Orders Only [facility] CHC MED & PEDS [address] [place] [address] Elliot Antunez MD [address] [place] [address] Social History Tobacco Use Types Packs/Day Years [...] Description 02/18/2025 10:45 AM EST Office Visit [facility] MEDICINE [address] [place] [phone] Lu Estrada MD [address] [place] [phone] documented as of this encounter Visit Diagnoses Not on filedocumented in this encounter Additional Health Concerns Assessment Noted Time PHQ-9 Depression Total Score: 5 01/22/20 24 3:06 PM EDT documented as of this encounter Care Teams Tile Mason Relationship Specialty Start Date End Date Lu Estrada MD [address] [place] [id number] PCP - General Family Medicine 03/27/18 documented as of this encounter
--- OUTSIDE RECORDS SUMMARY | 2025-01-16 18:06 | XMS_ITS | Encounter Summary ---
Author Organization [employer] Address [address] [place] [address] 7t [place] [address] Care Team Providers Care Diamond Cleaver Name Role Phone Lu Estrada MD Primary Care Provider [phone] Reason for Visit * Reason Onset Date Comments Appointment Request 12/23/2022 Derm Encounter Details Date Type Department Care Team ([facility] Contact Info) Description 12/23/2022 Telephone [facility] MEDICINE [address] [place] [address] Lu Estrada MD [address] [place] [address] Appointment Request (Derm ) Social History Tobacco [...] 10:45 AM EST Office Visit [facility] MEDICINE [address] [place], [place] [phone] Lu Estrada MD [address] [place] [address] documented as of this encounter Visit Diagnoses Not on filedocumented in this encounter Care Teams Diamond Cleaver Relationship Specialty Start Date End Date Lu Estrada MD [address] [place], [place] [phone] PCP - General Family Medicine 03/27/18 documented as of this encounter
--- OUTSIDE RECORDS SUMMARY | 2025-01-16 18:06 | XMS_ITS | Encounter Summary ---
Author Organization [email or web address] Address [address] [place] [address] 7 [place] [address] Care Team Providers Care Medical Office Receptionist Assistant Name Role Phone Lu Estrada MD Primary Care Provider [phone] Encounter Details Date Type Department Care Team (Late Contact Info) Description 04/19/2022 Orders Only [facility] MEDICINE [address] [place] [address] [phone] Lu Estrada MD [address] [place] [address] [phone] Social History Tobacco Use Types Packs/Day Years [...] 10:45 AM EST Office Visit [facility] MEDICINE [address] [place] [address] [phone] Lu Estrada MD [address] [place] [address] [phone] documented as of this encounter Visit Diagnoses Not on filedocumented in this encounter Care Teams Medical Office Receptionist Assistant Relationship Specialty Start Date End Date Lu Estrada MD [address] [place] [address] PCP - General Family Medicine 03/27/18 documented as of this encounter
--- OUTSIDE RECORDS SUMMARY | 2025-01-16 18:06 | XMS_ITS | Encounter Summary ---
Demographics Address [address] [facility] [address] [place] [address] Home Phone Work Phone Mobile Phone Email Address Preferred Language en Marital Status Single Christian Affiliation Unknown Race Other Race Ethnic Group Unknown Author Organization [employer] Address [address] [facility] 7t [place] [address] Care Team Providers Care Discotheque Dancer Name Role Phone Lu Estrada MD Primary Care Provider [phone] Reason for Visit * Reason Comments Med Refill Encounter Details Date Type Department Care Team ([facility] st Contact Info) Description 06/18/2022 Refill [facility] CHC MED & PEDS [address] [place] [address] Vandana Black, ANP [address] [place] [address] Social History Tobacco Use Types Packs/Day Years [...] Description 02/18/2025 10:45 AM EST Office Visit [facility] MEDICINE [address] [place], [place] [phone] Lu Estrada MD [address] [place], [place] [phone] documented as of this encounter Visit Diagnoses Not on filedocumented in this encounter Care Teams Discotheque Dancer Relationship Specialty Start Date End Date Lu Estrada MD [address] [place] [address] [phone] PCP - General Family Medicine 03/27/18 documented as of this encounter
--- OUTSIDE RECORDS SUMMARY | 2025-01-16 18:06 | XMS_ITS | Encounter Summary ---
Author Organization [employer] Address [address] [facility] [address] [place] [address] Care Team Providers Care Admission Nurse Name Role Phone Lu Estrada MD Primary Care Provider [phone] Reason for Visit * Reason Comments Med Refill Encounter Details Date Type Department Care Team ([facility] Contact Info) Description 03/09/2023 Refill [facility] MEDICINE [address] [place] [address] Lu Estrada MD [address] [place] [address] Social History Tobacco Use Types Packs/Day Years [...] Office Visit [facility] MEDICINE [address] [place] [phone] Lu Estrada MD [address] [place] [phone] documented as of this encounter Visit Diagnoses Not on filedocumented in this encounter Additional Health Concerns Assessment Noted Time PHQ-9 Depression Total Score: 0 03/08/20 23 11:18 AM EST documented as of this encounter Care Teams Admission Nurse Relationship Specialty Start Date End Date Lu Estrada MD [address] [place] [phone] PCP - General Family Medicine 03/27/18 documented as of this encounter
--- OUTSIDE RECORDS SUMMARY | 2025-01-16 18:06 | XMS_ITS | Clinical Summary ---
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; advised to contact her surgeon or ENGLISH TEACHER Atypical chest pain 07/13/2022 Enlarged tonsils 07/13/2022 [...] Plan (04/25/2022 4:36 PM EST): -[place] [facility] continue famotidine -continue pantoprazole -avoid NSAIDS IBS (irritable bowel syndrome) 04/21/2022 Assessment & Plan (01/28/2024 4:45 PM EST): - followed by [facility] last seen in May 2023 - s/p EGD and colonoscopy -GI prescribed dicyclomine, simethicone, and Creon, but she is not taking it; recommended to discuss with GI specialist before discontinuing it -work on stress reduction Assessment & Plan (05/05/2023 6:42 AM EST): - followed by [facility] last seen in Nov [...] (04/29/2022 6:27 PM EST): - followed by [facility] last seen on 03/24/22 [...] 4:48 PM EST): - previously seen by [facility] Clinician. - patient is not interested in behavioral health service -Pt was recommended to improve sleepy hygien and exercise during the day instead of taking medications Assessment & Plan (04/25/2022 4:35 PM EST): Was seen by [facility] Clinician. -Will check status of f/u. -Pt was recommended to improve sleepy hygien and exercise during the day instead of taking medications Dislocation of acromioclavicular joint 7 Migraine 05/04/2016 Assessment & Plan (04/28/2024 4:12 PM EST): -seen by [facility] neurologist in Apr 2019 -seen by [facility] neurology in Dec 2022 -04/23/22 [...] Plan (01/28/2024 4:50 PM EST): -seen by [facility] neurologist in Apr 2019 -seen by [facility] neurology in Dec 2022 -04/23/22 [...] Plan (05/05/2023 6:51 AM EST): -seen by [facility] neurolog[place] in Apr 2019 -seen by [facility] neurology in Dec 2022 -04/23/22 [...] Department Care Team Description 01/10/2025 Orders Only [facility] External Provider, [facility] 12/24/2024 Telephone [facility] [address] [place] [address] Lu Estrada MD chart prep 12/23/2024 7:00 PM EDT Office Visit [facility] [address] [place] [address] Joseph Mix MD Chills (Primary Dx); History of hypokalemia 12/23/2024 Travel 12/18/2024 Patient Outreach [facility] [address] [place] [address] Lu Estrada MD Pre-visit Planning (SDOH screening positive and Tobacco screening negative) 12/05/2024 9:15 AM EDT Office Visit [facility] [address] [place] [address] Tarka, Aziza, OD Hypermetropia, bilateral (Primary Dx) 12/05/2024 Travel 11/25/2024 Orders Only GENERIC EXTERNAL DATA DEPARTMENT Provider, Generic External Data 11/24/2024 Orders Only [facility] External Provider, [facility] 11/21/2024 Orders Only GENERIC EXTERNAL DATA DEPARTMENT [...] 02/18/2025 10:45 AM EST Office Visit [facility] [address] [place] [address] Lu Estrada MD [address] [place] [address] Health Maintenance Due Date Last Done Comments [...] Procedure Name Priority Date/Time Associated Diagnosis Comments BASIC METABOLIC PANEL Routine 01/16/2025 2:22 PM EDT Chills History of hypokalemia CBC WITH AUTO DIFFERENTIAL Routine 01/16/2025 2:22 PM EDT Chills TSH W/REFLEX TO FT4 Routine 01/16/2025 2 :22 PM EDT Chills US PELVIS TRANSVAGINAL Routine 01/10/2025 3:03 PM [...] Recently Relevant to Health Maintenance Results * TSH W/Reflex to FT4 (01/16/2025 2:22 PM EDT) Pathologist [facility] TSH reflex Free T4 0.91 0.32 - 4.0 uIU/mL [facility] Blood Venous blood specimen / Unknown 01/16/2025 2:22 PM EDT 01/16/2025 3:58 PM EDT us Joseph Mix MD LAB BLOOD ORDERABLES Final Resul t [facility] [address] [place] [phone] * (ABNORMAL) CBC auto differential (01/16/2025 2:22 PM EDT) White Blood Count 5.6 4.8 - 10.8 X10*3/uL [facility] Red Blood Count 4.33 4.20 - 5.50 X10*6/uL [facility] Hemoglobin 12.4 12.0 - 16.0 g/dl [facility] Hematocrit 37.5 37.0 - 47.0 % [facility] Mean Corpuscular Volume 86.6 80.0 - 98.0 fL [facility] Mean Corpuscular Hemoglobin 28.6 27.0 - 33.0 pg [facility] Mean Corpuscular HGB Conc 33.1 31.0 - 35.0 g/dl [facility] Red Cell Distribution Width 13.8 11.0 - 16.0 % [facility] Platelet Count 241 160 - 400 X10*3/uL [facility] Mean Platelet Volume 10.6 9.4 - 12.3 fL [facility] Neutrophils Percent Auto 37.3(L) 45 - 73 % [facility] Imm Gran Pct Auto 0.2 0.0 - 0.4 % [facility] Lymphocytes Percent Auto 53.2(H) 20 - 40 % [facility] Monocytes Percent Auto 6.8 2 - 11 % [facility] Eosinophils Percent Auto 2.0 0 - 4 % [facility] Basophils Percent Auto 0.5 0 - 2 % [facility] NRBC Pct Auto 0.0 0.0 - 0.2 /100WBC [facility] Neutrophils Absolute Auto 2.1 2.0 - 8.3 x10*3/uL [facility] Imm Gran Abs Auto 0.01 0.00 - 0.03 X10*3/uL [facility] Lymphocytes Absolute Auto 3.0 1.2 - 4.9 X10*3/uL [facility] Monocytes Absolute Auto 0.4 0.1 - 1.2 X10*3/uL [facility] Eosinophils Absolute Auto 0.1 0.0 - 0.4 X10*3/uL [facility] Basophils Absolute Auto 0.0 0.0 - 0.2 X10*3/uL [facility] NRBC Abs Auto 0.000 0.0 - 0.012 X10*3/uL [facility] Blood Venous blood specimen / Unknown 01/16/2025 2:22 PM EDT 01/16/2025 3:58 PM EDT us Joseph Mix MD LAB BLOOD ORDERABLES Final Resul t [facility] [address] [place] [phone] * (ABNORMAL) Basic Metabolic Panel (01/16/2025 2:22 PM EDT) Sodium 140 135 - 145 mmol/L [facility] Potassium 3.8 3.3 - 5.1 mmol/L [facility] Chloride 110(H) 96 - 108 mmol/L [facility] Carbon Dioxide 23 22 - 29 mmol/L [facility] Anion Gap 11(L) 12 - 20 [facility] Urea Nitrogen (BUN) 11 9 - 16 mg/dL [facility] Creatinine, Serum 0.78 0.5 - 1.4 mg/dL [facility] Estimated Glomerular Filt Rate >60 [facility] Comment:Chronic Kidney Disea se: Estimated GFR < 60 mL/min/1.59x4Nqffjc Kidney Disease: Estimated GFR < 15 mL/min/1.73m2 Glucose 88 60 - 115 mg/dL [facility] Calcium 8.6 8.4 - 10.2 mg/dL [facility] Blood Venous blood specimen / Unknown 01/16/2025 2:22 PM EDT 01/16/2025 3:58 PM EDT us Joseph Mix MD LAB BLOOD ORDERABLES Final Resul t Performing Organization Address City/State/[facility] Co de Phone Number [facility] [address] [place] [address] [phone] * US Pelvis Transvaginal (01/10/2025 3:03 PM EDT) Anatomical Region Laterality Modality Pelvis Ultrasound 01/10/2025 3:03 PM EDT Narrative 01/10/2025 4:02 PM EDT [address] [address] Ultrasound Report Signed Patient: Shruti Winters MR#: [id number] : 1985 Acct:[id number] Age/Sex: 39 / F ADM Date: 01/10/25 Loc: .US Attending Dr: Kaden Jett MD Ordering Physician: Kaden Jett MD Date of Service: 01/10/25 Procedure(s): US pelvic and transvaginal Accession Number(s): [id number] cc: Lu Estrada MD; Kaden Jett MD [...] 01/10/25 1558 DD/ 1503 TD/TT: 01/10/25 1525 Cake Press Operator Helper: Procedure Note Donotwilmarinterpreter, Image - 01/10/2025 [place] [address] Ultrasound Report Signed Patient: Ajay Winters#: [id number] : 1985Acct:[id number] Age/Sex: 39 / FADM Date: 01/10/25 Loc: HO.US Attending Dr: Kaden Jett MD Ordering Physician: Kaden Jett MD Date of Service: 01/10/25 Procedure(s): US pelvic and transvaginal Accession Number(s): [id number] cc: Lu Estrada MD; Kaden Jett MD [...] 01/10/25 1558 DD/ 1503 TD/TT: 01/10/25 1525 Cake Press Operator Helper: us [facility] External Provider IMG US PROCEDURES Final Result * CT Abdomen Pelvis w/o Contrast (11/25/2024 4:50 AM EDT) Anatomical Region Laterality Modality Body, Pelvis, Abdomen Computed T omography 11/25/2024 4:50 AM EDT Narrative 11/25/2024 4:51 AM EDT [place] [address] CT Scan Report Signed Patient: Shruti Winters MR#: [id number] : 1985 Acct:[id number] Age/Sex: 39 / F ADM Date: 11/24/24 Loc: .ED Attending Dr: Ordering Physician: Mandi Branch DO Date of Service: 11/25/24 Procedure(s): CT abdomen pelvis wo IV con Accession Number(s): [id number] cc: Mandi Branch DO; [facility] Report Number: [id number]: Total DLP = 629.00 mGy-cm CLINICAL HISTORY: [...] in OV> 11/25/24449 DD/ 9 TD/TT: 11/25/24449 Cake Press Operator Helper: Procedure Note Donotuseinterpreter, Image - 11/25/[address] [place] [address] [address] Scan Report Signed Patient: Ajay Wintres#: [id number] : 1985Acct:[id number] Age/Sex: 39 / FADM Date: 11/24/24 Loc: .ED Attending Dr: Ordering Physician: Mandi Branch DO Date of Service: 11/25/24 Procedure(s): CT abdomen pelvis wo IV con Accession Number(s): [id number] cc: Mandi Branch DO; [facility] Report Number: [id number]: Total DLP = 629.00 mGy-cm CLINICAL HISTORY: [...] in OV> 11/25/24449 DD/ 9 TD/TT: 11/25/24449 Cake Press Operator Helper: [facility] External Provider IMG CT PROCEDURES Final Result * (ABNORMAL) Urinalysis, Complete, with Reflex to Culture (11/25/2024 2:17 AM EDT) Color Urine Yellow [facility] Appearance Urine Clear [facility] PH 5.5 5.0 - 9.0 [facility] Glucose Urine UA Negative Negative mg/dL [facility] Urine Blood Moderate (2+)(A) Negative [facility] Specific [place] - Urine >=1.030(H) 1.005 - 1.025 [facility] Urine Protein Trace Neg-Trace mg/dL [facility] Urine Ketones Negative Negative mg/dL [facility] Nitrite Urine Negative Negative [facility] Leukocyte Esterase Urine Negative Negative [facility] RBC Urine >20(A) 0 - 2 /HPF [facility] Urine WBC 0-5 0 - 5 /HPF [facility] Urine Squamous Epithelial Cell 0-2 0 - 2 /HPF [facility] Urine Bacteria None Seen None Seen [facility] Hyaline Casts, Urine 0-2 0 - 2 /LPF [facility] 11/25/2024 2:17 AM EDT 11/25/2024 2:22 AM EDT Narrative [facility] - 11/25/2024 2:31 AM EDT [id number], Clean Catch Generic External Data Provider LAB URINE ORDERAB LES Final Result [facility] [address] [place] [phone] * Chlamydia/N. Gonorrhoeae RNA, TMA, Urogenitial (11/21/2024 11:24 AM EDT) CT PCR NOT DETECTED Not Detect. [facility] Comment:A not detected test result [...] psychologicalconsequences. NG PCR NOT DETECTED Not Detect. [facility] Comment:A not detected test result [...] GENERAL ORDERABLES Final Result Performing Organization Address City/[facility] Co de Phone Number [facility] [address] [place] [phone] * Culture, Urine, Routine (11/21/2024 11:24 AM EDT) Urine Urine specimen obtained by clean catch procedure / Unknown 11/21/2024 11:24 AM EDT 11/21/2024 2:14 PM EDT Comment:UACC Narrative [facility] - 11/22/2024 9:11 AM EDT Urine Culture No growth. Specimen Source: Urine clean catch us Generic External Data Provider LAB MICROBIOLOGY - GENERAL ORDERABLES Final Result [facility] [address] [place] [phone] * (ABNORMAL) Lipid Panel with Reflex to Direct LDL (01/22/2024 3:20 PM EDT) Triglycerides 88 <150 mg/dL [facility] Comment:Desirable Triglyceri de: less than 150 mg/dLBorderline High Triglyceride 150-199 mg/dLHigh Triglyceride: 200-499 mg/dLVery High Triglyceride: greater than or equal to 5OO mg/dL Cholesterol 183 <200 mg/dL [facility] Comment:Desirable Cholestero l: less than 200 mg/dLBorderline High Cholesterol: 200-239 mg/dLHigh Cholesterol: greater than 239 mg/dL LDL Cholesterol Calculated 126(H) <100 mg/dL [facility] Comment:Desirable LDL: less than 100 mg/dLNear Optimal/Above Optimal LDL: 110- 129 mg/dLBorderline High LDL: 130-159 mg/dLHigh LDL: 160-189 mg/dLVery High LDL: greater than or equal to 190 mg/dL HDL Cholesterol 40(L) >40 mg/dL [facility] Comment:Desirable HDL: great er than 40 mg/dL Note: This HDL assay may give artificially low results in patients with liver disease. Blood 01/22/2024 3:20 PM EDT 01/22/2024 4:05 PM EDT us Lu Estrada MD LAB BLOOD ORDERABLES Final Resul t [facility] [address] [place] [phone] * ThinPrep Imaging Pap and HPV mRNA E6/E7 with Reflex to HPV 16,18/45 (12/05/2023 12:00 AM EDT) HPV 16 RNA [facility] HPV 18/45 RNA [facility] HPV nRNA E6/E7 Not Detected Not Detected [facility] Comment:Methodology: Transcr iption-Mediated AmplificationThis assay detects E6/E7 viral messenger RNA (mRNA) from 14high-risk HPV types (16,18,31,33,35,39,45,51,52,56,58,59,66,68).Cervical sources are required for HPV testing.If a vaginal source from a patient who has had atotal hysterectomy with removal of cervix wassubmitted, please contact the testing laboratoryfor alternative testing options.For additional information, please refer tohttp://education.Ingeny/faq/KPZ665d3(This link if provided for information/educational purposes only.)THIS TEST WAS PERFORMED AT:[facility] [address] [place] [phone] MILLS MD SOURCE: SEE NOTE [facility] Comment:None given Report Status: [facility] Clinical Information: SEE NOTE [facility] Comment:None given LMP: SEE NOTE [facility] Comment:NONE GIVEN Prev. PAP: SEE NOTE [facility] Comment:NONE GIVEN Prev. BX: SEE NOTE [facility] Comment:NONE GIVEN Statement Of Adequacy: SEE NOTE [facility] Comment:Satisfactory for tahmina luation.Endocervical/transformation zone componentpresent. General Categorization: [facility] Interpretation/Result: SEE NOTE [facility] Comment:Cytology Results: Ne gative for intraepitheliallesion or malignancy. Cytology Comment SEE NOTE [facility] Comment:This Pap test has be en evaluated with computerassisted technology. Manager Stars: SEE NOTE [facility] Comment:[place], CT(ASCP)CT scre ening location: [address] [address] Review Manager Stars: [facility] Pathologist [facility] PAP Infection [facility] See Note SEE NOTE [facility] Comment:EXPLANATORY NOTE:The Pap is a screening test for cervical cancer. It isnot a diagnostic test and is subject to false negativeand false positive results. It is most reliable when asatisfactory sample, regularly obtained, is submittedwith relevant clinical findings and history, and whenthe Pap result is evaluated along with historic andcurrent clinical information. 12/05/2023 12/05/2023 Narrative [facility] - 12/11/2023 1:12 PM EDT SEE SCANNED RESULTS IN EMR us Generic External Data Provider LAB PATHOLOGY ORD ERABLES Final Result Performing Organization Address [facility] Co de Phone Number [facility] [address] [place] [phone] * HEPATITIS C AB W/REFL TO HCV RNA, QN, PCR (03/16/2020 4:32 PM EST) HEPATITIS C ANTIBODY NON-REACT CORA NON-REACT CORA [facility] INDEX 0.02 <1.00 [facility] Comment: HCV antibody was non-reactive. There is no laboratory evidence of HCV infection. In most cases, no further action is required. However, if recent HCV exposure is suspected, a test for HCV RNA (test code 03759) is suggested. For additional information please refer to http://education.Critical Media.i2O Water/faq/AGO59z1 (This link is being provided for informational/ educational purposes only.) 03/16/2020 4:32 PM EST us Lu Estrada MD HISTORICAL/NON ORDERABLE LABS Fi nal Result Performing Organization Address City/[facility]/ZIP Co de Phone Number [facility] [address] * HIV 1/2 ANTIGEN/ANTIBODY,FOURTH GENERATION W/RFL [...] purpose. For additional information please refer to http://education.Ingeny/faq/LJV398 (This link is being provided for informational/ educational purposes only.) The performance of this assay has not been clinically validated in patients less than 2 years old. 03/16/2020 4:32 PM EST us Lu Estrada MD LAB BLOOD ORDERABLES Final Resul t [facility] [address] from Last 3 Months or Most Recently Relevant to Health Maintenance Insurance [facility] C[place] AD[place] Care Teams Automatic Screwmaker Relationship Specialty Start Date End Date Lu Estrada MD [address] [place] [phone] PCP - General Family Medicine 03/27/18
--- OUTSIDE RECORDS SUMMARY | 2025-01-16 18:07 | XMS_ITS | Encounter Summary ---
Demographics Address [address] [place] [address] Home Phone Work Phone Mobile Phone Email Address Preferred Language en Marital Status Single Rastafarian Affiliation Unknown Race Other Race Ethnic Group Unknown Author Organization [employer] Address [address] [place] [address] Care Team Providers Care Lens Grinder Apprentice Name Role Phone Lu Estrada MD Primary Care Provider [phone] Reason for Visit * Reason Comments Med Refill Encounter Details Date Type Department Care Team ([facility] Contact Info) Description 03/09/[address] [facility] [address] [place] [address] Vandana Black, ANP [address] [place] [address] Social History Tobacco Use Types Packs/Day Years [...] Description 02/18/2025 10:45 AM EST Office Visit [facility] [address] [place] [phone] Lu Estrada MD [address] [place] [phone] documented as of this encounter Visit Diagnoses Not on filedocumented in this encounter Additional Health Concerns Assessment Noted Time PHQ-9 Depression Total Score: 0 03/08/20 23 11:18 AM EST documented as of this encounter Care Teams Lens Grinder Apprentice Relationship Specialty Start Date End Date Lu Estrada MD [address] [place] [phone] PCP - General Family Medicine 03/27/18 documented as of this encounter
--- OUTSIDE RECORDS SUMMARY | 2025-01-16 18:07 | XMS_ITS | Encounter Summary ---
Author Organization [employer] Address [address] [facility] [address] [place] [address] Care Team Providers Care Cornetist Name Role Phone Lu Estrada MD Primary Care Provider [phone] Reason for Visit * Reason Comments Med Refill Encounter Details Date Type Department Care Team ([facility] st Contact Info) Description 03/09/2023 Refill [facility] [address] [place] [address] Lorri Eduardo, [address] [place] [address] Social History Tobacco Use Types Packs/Day Years [...] Description 02/18/2025 10:45 AM EST Office Visit [facility] [address] [place] [phone] Lu Estrada MD [address] [place] [address] documented as of this encounter Visit Diagnoses Not on filedocumented in this encounter Additional Health Concerns Assessment Noted Time PHQ-9 Depression Total Score: 0 03/08/20 23 11:18 AM EST documented as of this encounter Care Teams Cornetist Relationship Specialty Start Date End Date Lu Estrada MD [address] [place] [phone] PCP - General Family Medicine 03/27/18 documented as of this encounter
== END 2025-01-16 14:14 | disposition home or self-care (01) ==
LOC: HO.HHCL 14:13
PROVIDERS: PCP Family Medicine; Visit Provider Family Medicine
DX: R68.83 Chills (without fever) (principal); Z86.39 Personal history of other endocrine, nutritional and metabolic disease
CPT/HCPCS: 36415; 80048; 84443; 85025

== ENCOUNTER 2025-01-28 14:29 | Outpatient (AMB) | payer MEDICAID, SELFPAY ==
--- NOTE | 2025-01-28 14:38 | MHC.OFFVIS ---
Vital Signs 01/28/25 14:40 Height 5 ft 6 in Weight 185 lb BMI 29.9 BP 110/62 Blood Pressure Location Lt brachial Position Sitting Intake Visit Reasons: Urine Dip/Us follow up/ pre op for hyst Foot Orthopedist Required: No School Operations Manager: School Operations Manager Present Allergies No Known Allergies (No Known Allergies*) Allergy (Verified 01/28/25 14:43) Medication List - Last Reconciled 01/28/25 by Patt Tanner, MARTI acetaminophen (Tylenol Extra Strength) 500 mg PO Q6H PRN acetaminophen 1,000 mg (2 x 500 mg) PO QID PRN albuterol sulfate 90 mcg/actuation (Proventil HFA) 1 inh inhalation QID kbskcdo-igylunblpofwb-tiitcyex 250-250-65 mg (Excedrin Migraine) 1 tab PO Q4-6H PRN woakkfuiin-jkbmzvwpsvkvp-zjnt 50-300-40 mg (Fioricet) 1 cap PO Q8H PRN cholecalciferol (vitamin D3) (Vitamin D3) 50 mcg PO DAILY cyclobenzaprine 10 mg PO TID cyclobenzaprine 5 mg PO Q8H PRN 5 days ibuprofen 600 mg PO Q6H PRN lidocaine 5% (Lidoderm) 1 patch topical DAILY PRN MDD remove after 12 hours lisinopril 10 mg PO DAILY loratadine (Allerclear) 10 mg PO DAILY PRN methocarbamol 1,000 mg (2 x 500 mg) PO Q8H PRN methocarbamol 1,000 mg PO TID montelukast (Singulair) 10 mg PO BEDTIME naproxen (Naprosyn) 500 mg PO BID omeprazole 20 mg PO DAILY 14 days ondansetron 4 mg PO Q8H PRN 3 days ondansetron 4 mg PO Q8H pantoprazole 40 mg PO BID 90 days terbinafine HCl 1% (Athlete's Foot (terbinafine)) 1 appl topical TID Is last menstrual period known: Yes Last menstrual period: 01/23/20 Post menopausal: No Patient : No Do you need a note to return to daycare/school/sports/work: Yes (for surgery on monday) HPI Comments Details: Presenting for ultrasound follow-up and repeat urine dip. Pelvic ultrasound showed the following: IMPRESSION: 1. Oval 8 mm mildly echogenic focus in the endocervical canal, uncertain etiology, questionably a polyp versus hemorrhagic products. Recommend six-week follow-up to assess for resolution or persistence. 2. Normal endometrial thickness of 9 mm. 3. Normal uterus with no evidence of fibroid. 4. Normal ovaries bilaterally. The patient is complaining of bilateral breast pain since 06/18 where diagnostic bilateral mammogram and breast ultrasound was BI-RADS 1 [facility] Medical History Simple ovarian cyst Hypertension IBS (irritable bowel syndrome) Fibromyalgia Asthma Migraines Surgical History Hx of colonoscopy History of esophagogastroduodenoscopy (EGD) History of loop electrical excision procedure (LEEP) Hx of tubal ligation Family History Mother Diabetes HTN (hypertension) Asthma Brother Asthma Social History Household Members: Children Are you a primary care taker to a significant other at home: No Do you presently have visiting nurse or other home services: No Alcohol intake: never Comment: counts correct Patient Tobacco Use Status: Never used Tobacco Substance Use Type: Marijuana Advance Directives Date on File: 08/29/24 Current occupational status: employed 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 Sexual orientation: Straight/Heterosexual Gender identity: Female Female Reproductive History Menstrual Age of Menarche: 15 Date of last menstrual period: 01/23/20 Total pregnancies: 2 Full term: 2 Review of Systems Card Reports as per HPI and Reports no additional complaints Resp Reports as per HPI and Reports no additional complaints GI Reports as per HPI and Reports no additional complaints Reports as per HPI Physical Exam Vital Signs: BMI result Body Mass Index 29.9 Const General: cooperative, healthy appearing and comfortable Chest Breast/axilla inspection: normal inspection of the breasts Breast/axilla palpation: palpation of the breasts abnormal (Bilateral tender area 3 cm the nipple at 06:00 right + left) Resp Effort & Inspection: normal respiratory effort Auscultation: clear to auscultation bilaterally Percussion: percussion normal Cardio Palpation: normal PMI Rate: regular rate Rhythm: regular rhythm Heart sounds: no murmurs and no rubs Peripheral pulses: Peripheral pulses 2+ throughout GI Inspection: Yes normal to inspection Palpation (GI): Soft to palpation, nontender, no guarding, not rigid and No hepatosplenomegaly present Percussion: Yes normal to percussion Auscultation: normal bowel sounds Rectal Exam - Female: deferred Results AMB Urinalysis, Automated UA Leukoctes 0 David/uL Last Edit by Patt Tanner LPN on 01/28/25 15:00 UA Nitrite Negative Last Edit by Patt Tanner LPN on 01/28/25 15:00 UA Urobilinogen 0 mg/dL Last Edit by Patt Tanner LPN on 01/28/25 15:00 UA Protein 0 mg/dL Last Edit by Patt Tanner LPN on 01/28/25 15:00 UA pH 6.0 Last Edit by Patt Tanner LPN on 01/28/25 15:00 UA Blood 0 Jose/uL Last Edit by Patt Tanner LPN on 01/28/25 15:00 UA Specific Dalton 1.025 Last Edit by Patt Tanner LPN on 01/28/25 15:00 UA Ketone Negative Last Edit by Patt Tanner LPN on 01/28/25 15:00 UA Bilirubin 0 mg/dL Last Edit by Patt Tanner LPN on 01/28/25 15:00 UA Glucose 0 mg/dL Last Edit by Patt Tanner LPN on 01/28/25 15:00 Assessment & Plan Assessment & Plan (1) Endocervical polyp: Comment: By ultrasound Code(s): N84.1 - Polyp of cervix uteri Category: Medical Plan: Discussed with the patient the finding on ultrasound showing endocervical polyp, recommended hysteroscopy D&C possible polypectomy/myomectomy. Discussed with the patient the procedure , all benefits and risks including but not limited to inability to complete the procedure , insufficient endometrial tissue for a complete evaluation of the endometrial cavity , bleeding, infection, possible need for blood transfusion with all its risk ( HIV,syphilis, Hepatitis, anaphylaxis shock, others..), injury to bladder, rectum, possible need for laparoscopy/laparotomy or hysterectomy. The patient verbalized understanding and signed the consent. Instructions given the patient to stay NPO after midnight the day prior to the procedure and to take only the specific medication (s) discussed the morning of the surgical procedure and to schedule a 2 week postoperative appointment (2) Microscopic hematuria: Code(s): R31.29 - Other microscopic hematuria Category: Medical Plan: Repeat urine dip showed no evidence for microscopic hematuria, the patient was reassured (3) Pain of both breasts: Comment: Bilateral tender area 3 cm the nipple at 06:00 right + left Code(s): N64.4 - Mastodynia Category: Medical Plan: Discussed with the patient the finding on breast exam bilateral tender spots 3 cm from the nipple at 06:00 of the right and left side, order breast ultrasound refer to general surgery Orders: Orders AMB Urinalysis Automated Today R31.29 - Other microscopic hematuria US breast LT limited Today N64.4 - Mastodynia US breast RT limited Today N64.4 - Mastodynia Referrals General Surgery Referral N64.4 - Mastodynia Coding Level of Care Code Est Pt Level 3 (32470) Diagnoses Endocervical polyp N84.1 Microscopic hematuria R31.29 Pain of both breasts N64.4
[2025-01-28 14:40] VITALS: BP 110/62; BMI 29.9
== END 2025-01-28 15:21 | disposition home or self-care (01) ==
LOC: HO.HWS 14:29
PROVIDERS: PCP Family Medicine; Visit Provider Obstetrics & Gynecology
DX: N84.1 Polyp of cervix uteri (principal); R31.29 Other microscopic hematuria; N64.4 Mastodynia
CPT/HCPCS: 99213

== ENCOUNTER → 2025-01-28 14:29 | Outpatient (BNVA) | payer MEDICAID, SELFPAY | PROVIDERS: PCP Family Medicine; Visit Provider Obstetrics & Gynecology | DX: Z01.818 Encounter for other preprocedural examination (principal); N64.4 Mastodynia; R31.29 Other microscopic hematuria; N84.1 Polyp of cervix uteri | CPT/HCPCS: 81003; 99212 ==

== ENCOUNTER 2025-02-14 10:38 | Day surgery (SDC) | payer MEDICAID, SELFPAY ==
--- NOTE | 2025-02-11 10:58 | HO.ANESPROP2 ---
Documented by User: Tiffany Ricks NP 02/11/25 10:58 HPI - Anesthesia Eval Consult details Narrative: 39yo F for D&C Hysteroscopy,possible myomectomy,possible polypectomy PMFSH Active Problems Active Problems: All Active Problems Pain of both breasts (Acute) Endocervical polyp (Acute) Microscopic hematuria (Acute) H/O ovarian cystectomy (Acute) Hx of bilateral salpingectomy (Acute) History of loop electrical excision procedure (LEEP) (Acute) Encounter for screening examination for sexually transmitted disease (Acute) Vaginal discharge (Acute) Vaginal itching (Acute) Abnormal uterine bleeding (Acute) Para-ovarian cyst (Acute) Constipation by delayed colonic transit (Acute) Pelvic pain (Acute) Well woman exam with routine gynecological exam (Acute) Upper abdominal pain (Acute) Acute recurrent tonsillitis (Acute) Mastalgia (Acute) Localized swelling on right hand (Acute) Left sided abdominal pain (Acute) Rotator cuff tendonitis (Acute) Myofascial neck pain (Acute) Bacterial vaginosis (Acute) Chlamydia infection (Acute) Surveillance for Depo-Provera contraception (Acute) Potential exposure to STD (Acute) Hx of abnormal cervical Pap smear (Acute) Menorrhagia (Acute) Hx of tubal ligation (Acute) Depot contraception (Acute) Hemorrhoids (Acute) Numbness and tingling of right upper and lower extremity (Acute) Ganglion cyst of dorsum of right wrist (Acute) Dyspareunia (Acute) Simple ovarian cyst (Acute) Pelvic pain in female (Acute) Encounter to discuss test results (Acute) Mass of joint of right wrist (Acute) Hypertension (Acute) IBS (irritable bowel syndrome) (Acute) Fibromyalgia (Acute) Asthma (Acute) Migraines (Acute) Wrist pain, right (Acute) Abdominal pain (Acute) Right ovarian cyst (Acute) Abdominal cramping (Acute) Encounter to discuss test results (Acute) Anemia (Acute) Surveillance for Depo-Provera contraception (Acute) Irregular menses (Acute) Heavy menstrual bleeding (Acute) GERD (gastroesophageal reflux disease) (Acute) Acromioclavicular joint separation (Acute) Nephrolithiasis (Acute) Left knee pain (Acute) Allergic rhinitis (Acute) Depression with anxiety (Acute) Ovarian cyst (Acute) Past Medical History Medical History GERD (gastroesophageal reflux disease) Simple ovarian cyst Hypertension IBS (irritable bowel syndrome) Fibromyalgia Asthma Migraines Family History Family History Mother Diabetes HTN (hypertension) Asthma Brother Asthma Family history of problems with anesthesia: No Surgical History Surgical History Hx of excision of mass Hx of colonoscopy History of esophagogastroduodenoscopy (EGD) History of loop electrical excision procedure (LEEP) Hx of tubal ligation History of Problems with Anesthesia: No Social History Social History Household Members: Children Are you a primary group care worker to a significant other at home: No Do you presently have visiting nurse or other home services: No Alcohol intake: never Comment: counts correct Patient Tobacco Use Status: Never used Tobacco Substance Use Type: Marijuana Substance Use Frequency: Daily Have you been hit, kicked, punched, or otherwise hurt by someone within the past year? 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 Sexual orientation: Straight/Heterosexual Gender identity: Female Meds Allergies Allergy/AdvReac Type Severity Reaction Status Date / Time No Known Allergies (No Known Allergy Verified 02/14/25 10:50 Allergies*) Home Medications ?Medication ?Instructions ?Recorded ?Confirmed ?Last Taken ?Type albuterol sulfate 90 mcg/actuation 1 inh inhalation QID 01/15/20 02/12/25 Unknown History aerosol inhaler (Proventil HFA) jrowbba-splwgrjkyiawc-btlabdpz 250 1 tab PO Q4-6H PRN Headache 01/15/20 02/12/25 Unknown History mg-250 mg-65 mg tablet (Excedrin Migraine) montelukast 10 mg tablet 10 mg PO BEDTIME 01/15/20 02/12/25 Unknown History (Singulair) cholecalciferol (vitamin D3) 50 50 mcg PO DAILY 03/16/22 02/12/25 Unknown History mcg (2,000 unit) capsule (Vitamin D3) lisinopril 10 mg tablet 10 mg PO DAILY 03/16/22 02/12/25 Unknown History Assessment and Plan Assessment Anesthesia Assessment: Chart Reviewed Final Anesthetic Review Family History of Problems with Anesthesia: No History of Problems with Anesthesia: No Documented by User: Ameya Azar MD 02/14/25 11:29 [facility] Past Medical History Medical History GERD (gastroesophageal reflux disease) Simple ovarian cyst Hypertension IBS (irritable bowel syndrome) Fibromyalgia Asthma Migraines Family History Family History Mother Diabetes HTN (hypertension) Asthma Brother Asthma Surgical History Surgical History Hx of excision of mass Hx of colonoscopy History of esophagogastroduodenoscopy (EGD) History of loop electrical excision procedure (LEEP) Hx of tubal ligation Social History Social History Household Members: Children Are you a primary group care worker to a significant other at home: No Do you presently have visiting nurse or other home services: No Alcohol intake: never Comment: counts correct Patient Tobacco Use Status: Never used Tobacco Substance Use Type: Marijuana Substance Use Frequency: Daily Have you been hit, kicked, punched, or otherwise hurt by someone within the past year? 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 Sexual orientation: Straight/Heterosexual Gender identity: Female Meds Allergies Allergy/AdvReac Type Severity Reaction Status Date / Time No Known Allergies (No Known Allergy Verified 02/14/25 10:50 Allergies*) Home Medications ?Medication ?Instructions ?Recorded ?Confirmed ?Last Taken ?Type albuterol sulfate 90 mcg/actuation 1 inh inhalation QID 01/15/20 02/12/25 Unknown History aerosol inhaler (Proventil HFA) sstaasn-ydkprsggattgo-llejwnqt 250 1 tab PO Q4-6H PRN Headache 01/15/20 02/12/25 Unknown History mg-250 mg-65 mg tablet (Excedrin Migraine) montelukast 10 mg tablet 10 mg PO BEDTIME 01/15/20 02/12/25 Unknown History (Singulair) cholecalciferol (vitamin D3) 50 50 mcg PO DAILY 03/16/22 02/12/25 Unknown History mcg (2,000 unit) capsule (Vitamin D3) lisinopril 10 mg tablet 10 mg PO DAILY 03/16/22 02/12/25 Unknown History Exam Exam Date and Time: 02/14/25 Airway Mallampati Class: II TM Dist: >3cm Neck ROM: Full Heart: rrr Lungs: ctab vesicular Assessment and Plan Assessment Anesthesia Assessment: Anesthesia Plan Discussed Final Anesthetic Review NPO: Yes ASA Class: II Final Preanesthetic Review: No Changes in Pt Med Stat, Meds/Allgs Chart Reviewed, Consent Obtained/Reviewed and Anes Risks/Benef Reviewed Patient Risk: Low Procedure Risk: Low Anesthetic Plan Anesthetic Plan: GA Disposition: Standard PACU
[2025-02-12 12:51] VITALS: BMI 29.9
[2025-02-14] VITALS (10 sets, daily range): BP systolic 119–149; BP diastolic 78–94; PULSE 56–101; RESP 10–18; TEMP 36.3–36.7; O2SAT 97–100
[2025-02-14] MEDS: Lactated Ringers 1,000 ML 100 ML IVCONT (10:59)
[2025-02-14 11:11] LABS: UPreg QC Valid YES
--- NOTE | 2025-02-14 11:51 | PC.NURSE ---
report given to juve page rn at this time. aware that dr. robledo needs to see patient and completed his 24 hour report and that 2 areas on preop record need to be signed.
--- NOTE | 2025-02-14 11:53 | MHC.SHP ---
Pre-Procedural Eval Section A - 24 Hr Update-Section A only Date of Service: 02/14/25 The patient is an INPATIENT: No Changes since office visit: No Cold of Flu in the past 2 weeks, No New Medical Problems, No Changes in Medication and No Patient answered all questions The patient has been examined within 24 hours of the surgical procedure. The History & Physical has been completed within 30 days and I have reviewed it.: Yes Section B - Complete if H&P > 30 days Chief Complaint: Polyp of cervix uteri Allergies: Allergies Allergy/AdvReac Type Severity Reaction Status Date / Time No Known Allergies (No Known Allergy Verified 02/14/25 10:50 Allergies*) Plan Diagnosis/Plan: Unchanged I have reviewed the history and physical and performed a pertinent physical examination on my patient. No changes have occurred unless specified. Time Spent With Patient Time: Total time managing care of this patient today ____ minutes.
--- NOTE | 2025-02-14 12:53 | PM.OP ---
Brief Operative Note Date of Service: 02/14/25 Pre-op diagnosis: Endometrial polyp by ultrasound Post-op diagnosis: same (Normal endometrial cavity) Procedure: Hysteroscopy D&C Surgeon: Kaden Jett MD Anesthesia: GLMA Was an Correctional Officer Chief used for this Procedure?: No Estimated blood loss (mL): 0 Pathology: other (Endometrial Scrapping.) Condition: stable Disposition: PACU
--- NOTE | 2025-02-14 12:53 | W.PM.OPN ---
Operative Note Operative Note Date of Service: 02/14/25 Narrative: Preop Diagnosis: Endometrial polyp by ultrasound Operation: Diagnostic Hysteroscopy, Dilataion & Curettage Post Op Diagnosis: Normal endometrial and endocervical cavity, no evidence of pathology QBL: Minimal Anesthesia: GLMA Surgeon: Kaden Jett MD Customs Patrol Officer: None Complication: None Pathology: Endometrial Scrapings Procedure: The patient was put in the dorsal lithotomy position, scrubbed, and draped in the usual manner. A sterile speculum was inserted in the patient's vagina. The anterior lip of the cervix was grasped with a single tooth tenaculum. The cervix was dilated up to 5 mm, then the scope was inserted in the patient's uterus. Inspection revealed normal endocervical & endometrial cavity with no evidence of pathology. The scope was taken out of the uterine cavity , then sharp curetting was carried on with no complications. At the end of the procedure, all instruments were taken out of the patient uterine and vaginal cavity. The single tooth tenaculum was removed and homeostasis was assured using pressure. The patient tolerated the procedure well and was transferred to the PACU in a stable condition.
[2025-02-14] MEDS: oxyCODONE HCl Immed Release 5 MG TABLET PO (13:24)
== END 2025-02-14 14:32 | disposition home or self-care (01) ==
PROVIDERS: PCP Family Medicine; Visit Provider Obstetrics & Gynecology
PROC: 0UDB8ZZ Extraction of Endometrium, Via Natural or Artificial Opening Endoscopic (ICD-10-PCS; CPT 58558; principal; 2025-02-14 13:00)
DX: N85.8 Other specified noninflammatory disorders of uterus (principal); N83.299 Other ovarian cyst, unspecified side; N64.4 Mastodynia; I10 Essential (primary) hypertension; Z98.890 Other specified postprocedural states; J45.909 Unspecified asthma, uncomplicated; M79.7 Fibromyalgia; G43.909 Migraine, unspecified, not intractable, without status migrainosus; Z79.82 Long term (current) use of aspirin; Z79.1 Long term (current) use of non-steroidal anti-inflammatories (NSAID); Z79.899 Other long term (current) drug therapy; R31.29 Other microscopic hematuria
CPT/HCPCS: 58558; 81025; 88305; J0131; J1100; J1885; J2003; J2405; J2704; J3010

== ENCOUNTER → 2025-02-14 10:38 | Outpatient (BNV) | payer MEDICAID, SELFPAY | PROVIDERS: PCP Family Medicine; Visit Provider Obstetrics & Gynecology | DX: N84.1 Polyp of cervix uteri (principal) | CPT/HCPCS: 58558 ==

== ENCOUNTER 2025-02-27 15:44 | Outpatient (AMB) | payer MEDICAID, SELFPAY ==
--- NOTE | 2025-02-27 15:49 | A.OFFVIS_ITS ---
Vital Signs 02/27/25 15:55 Height 5 ft 6 in Weight 185 lb BMI 29.9 BP 112/74 Intake Visit Reasons: post op Bottle Line Worker Required: Yes Bottle Line Worker Language: Wireless Sales Representative Services: Bottle Line Worker Present (in person) Bottle Line Worker Name: Linnea LEON Information Interpreted: non-clinical & clinical Accompanied by: Self / Same As Patient Allergies No Known Allergies (No Known Allergies*) Allergy (Verified 02/27/25 16:01) Is last menstrual period known: Yes Last menstrual period: 02/06/25 HPI Comments Details: The patient is presenting post hysteroscopy D&C no complaints minimal vaginal bleeding no feverishness chills or abdominal pain. Intraoperative findings normal endometrial and endocervical cavity no evidence of abnormalities The pathology showed the following: Benign proliferative endometrium with focal stromal collapse; no atypia or carcinoma The patient was in few weeks ago for pelvic pain, urine dip showed microscopic hematuria, urine culture was negative, UPT was negative, GC/CT was negative and pelvic ultrasound showed the endocervical polyp PFSH Medical History GERD (gastroesophageal reflux disease) Simple ovarian cyst Hypertension IBS (irritable bowel syndrome) Fibromyalgia Asthma Migraines Surgical History Hx of excision of mass Hx of colonoscopy History of esophagogastroduodenoscopy (EGD) History of loop electrical excision procedure (LEEP) Hx of tubal ligation Family History Mother Diabetes HTN (hypertension) Asthma Brother Asthma Social History Household Members: Children Are you a primary home health care worker to a significant other at home: No Do you presently have visiting nurse or other home services: No Alcohol intake: never Patient Tobacco Use Status: Never used Tobacco Substance Use Type: Marijuana Advance Directives Date on File: 08/29/24 Current occupational status: employed 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 Sexual orientation: Straight/Heterosexual Gender identity: Female Female Reproductive History Menstrual Age of Menarche: 15 Date of last menstrual period: 02/06/25 Review of Systems Const All systems reviewed & are unremarkable except as noted in HPI and below Reports as per HPI and Reports no additional complaints GI Reports no additional complaints Reports no additional complaints Assessment & Plan Assessment & Plan (1) Endocervical polyp: Comment: By ultrasound Code(s): N84.1 - Polyp of cervix uteri Category: Medical Plan: Discussed with the patient the intraoperative finding no evidence of endocervical polyp or any other abnormalities and the results of the pathology , all questions answered, the patient verbalized understanding (2) Pelvic pain in female: Comment: Resolved Code(s): R10.2 - Pelvic and perineal pain Category: Medical Plan: Discussed with the patient the results of the workup done including negative GC/chlamydia, urine showing microscopic hematuria, urine test and pelvic ultrasound showing endocervical polyp, follow-up hysteroscopy showed no evidence of endocervical polyp and pathology is benign. Differential diagnosis of acting professor causes that have not be ruled out yet include but not limited to endometriosis, pelvic adhesions , or others. Recommended for the patient to see her PCP for further workup for non acting professor causes; if the all the results are negative and the patient's pelvic pain is persistent, instructions given to patient to call back for further testing. Meanwhile, instructions were given the patient to go to emergency room or call in case of fever above 100.4, heavy vaginal bleeding, persistence or worsening of her pelvic pain. All questions answered, the patient verbalized understanding. (3) Microscopic hematuria: Comment: Resolved Code(s): R31.29 - Other microscopic hematuria Category: Medical Plan: Repeat urine dip showed no evidence of microscopic hematuria, the patient was reassured Orders: Orders AMB Urinalysis Dipstick Today R31.29 - Other microscopic hematuria Coding Level of Care Code Est Pt Level 3 (39202) Diagnoses Endocervical polyp N84.1 Pelvic pain in female R10.2 Microscopic hematuria R31.29
[2025-02-27 15:55] VITALS: BP 112/74; BMI 29.9
--- OUTSIDE RECORDS SUMMARY | 2025-02-27 21:51 | XMS_ITS | Encounter Summary ---
Author Organization [employer] Address [address] [place] [address] [address] [place] [address] Care Team Providers Care Bunch Breaker Name Role Phone Lu Estrada MD Primary Care Provider [phone] Encounter Details Date Type Department Care Team (Late Contact Info) Description 02/23/2022 Abstract [facility] ADULT DENTAL [address] [place] [address] Dental, Provider, DDS Social History Tobacco Use [...] Upcoming Encounters Date Type Department Care Team ([facility] Contact Info) Description 07/29/2025 12:45 PM EDT Office Visit [facility] ADULT [facility] [address] [place] [address] Heidi Ennis [address] [place] [address] documented as of this encounter Procedures Procedure Name Priority Date/Time Associated Diagnosis Comments 14 O AMALGAM FILLING Routine 02/23/2022 12:00 AM EST documented in this encounter Visit Diagnoses Not on filedocumented in this encounter Care Teams Bunch Breaker Relationship Specialty Start Date End Date Lu Estrada MD [address] [place] [address] PCP - General Family Medicine 03/27/18 documented as of this encounter
--- OUTSIDE RECORDS SUMMARY | 2025-02-27 21:51 | XMS_ITS | Encounter Summary ---
Author Organization [employer] Address [address] [place] [address] [address] [place] [address] Care Team Providers Care Forestry Fire Aid Name Role Phone Lu Estrada MD Primary Care Provider [phone] Encounter Details Date Type Department Care Team (Latest Contact Info) Description 07/08/2020 Abstract [facility] CONVERSIONS Dental, Provider, DDS Social History [...] Care Team (Late st Contact Info) Description 07/29/2025 12:45 PM EDT Office Visit [facility] ADULT DENTAL [address] [place] [address] Raymon, Heidi [address] [place] [address] documented as of this encounter Visit Diagnoses Not on filedocumented in this encounter Care Teams Forestry Fire Aid Relationship Specialty Start Date End Date Lu Estrada MD [address] [place] [address] PCP - General Family Medicine 03/27/18 documented as of this encounter
--- OUTSIDE RECORDS SUMMARY | 2025-02-27 21:51 | XMS_ITS | Encounter Summary ---
Author Organization [employer] Address [address] [place] [address] [address] [place] [address] Care Team Providers Care Disintegrator Operator Name Role Phone Lu Estrada MD Primary Care Provider [phone] Encounter Details Date Type Department Care Team (Latest Contact Info) Description 01/01/2019 Abstract [facility] CONVERSIONS Dental, Provider, DDS Social [...] Description 07/29/2025 12:45 PM EDT Office Visit [facility] ADULT DENTAL [address] [place] [address] Raymon, Heidi [address] [place] [address] documented as of this encounter Visit Diagnoses Not on filedocumented in this encounter Care Teams Disintegrator Operator Relationship Specialty Start Date End Date Lu Estrada MD [address] [place] [address] PCP - General Family Medicine 03/27/18 documented as of this encounter
--- OUTSIDE RECORDS SUMMARY | 2025-02-27 21:51 | XMS_ITS | Clinical Summary ---
Author Organization [employer] Address [address] [place] [address] 7[address] [place] [address] Care Team Providers Care Pediatric Surgeon Name Role Phone Lu Estrada MD Primary Care Provider [phone] Allergies No known active allergies Medications hydrocortisone (Anusol-HC) 2.5 % rectal cream Apply topically every 12 (twelve) hours. 2 Active hydrOXYzine pamoate (Vistaril) 25 MG capsule TAKE 1 CAPSULE BY MOUTH AT BEDTIME FOR SLEEP MAY TAKE 1 CAPSULE BY MOUTH UP TO THREE TIMES DAILY (DURING THE DAY) NEEDED FOR ANXIETY. 30 capsule 4 Active Fluticasone-Salme terol (Advair Diskus) 250-50 MCG/ACT aerosol powder Inhale 1 puff 2 times daily. 1 each 11 4 Active lidocaine (Lidoderm) 5 % patch Apply 1 patch topically Once per day. Remove & discard patch within 12 hours or as directed by MD. 90 patch 3 4 Active pantoprazole (ProtoNix) 40 MG [...] for 5 days. 15 tablet 4 Active albuterol (Ventolin HFA) 108 (90 Base) MCG/ACT inhalerIndication s:Moderate persistent asthma without complication INHALE 2 PUFFS BY MOUTH EVERY 4 HOURS DO NOT EXCEED 8 PUFFS DAILY 18 g 2 5 Active montelukast (Singulair) 10 MG tablet Take 1 tablet (10 mg) by mouth at bedtime. 90 tablet 3 5 Active ondansetron (Zofran) 4 MG tabletIndications :Chronic migraine without aura without status migrainosus, not intractable TAKE 1 TABLET BY MOUTH EVERY 8 HOURS NEEDED FOR NAUSEA 30 tablet 2 5 Active loratadine (Claritin) 10 MG tablet TAKE 1 TABLET BY MOUTH EVERY DAY 90 tablet 3 5 Active lisinopril 30 MG tabletIndications :Primary hypertension Take 1 tablet (30 mg) by mouth Once per day. 90 tablet 3 5 Active cholecalciferol (D3 Super Strength) 50 MCG (2000 UT) capsule Take 1 capsule (50 mcg) by mouth Once per day. 90 capsule 3 5 Active Active Problems Problem Noted Date Diagnosed Date Left sided abdominal pain 04/29/2024 Assessment & Plan (04/30/2024 6:44 AM EST): - UA negative - most recent CT scan in Feb 2024 was unremarkable - since her [employer] surgery; advised to contact her surgeon or [employer] Atypical chest pain 07/13/2022 Enlarged tonsils 07/13/2022 Assessment & Plan (01/28/2024 4:45 PM EST): - patient states she was referred to ENT by GI; she will reschedule appt Dental plaque 04/25/2022 History of chlamydia 04/21/2022 Assessment & [...] Plan (04/25/2022 4:36 PM EST): -followed by [facility] continue famotidine -continue pantoprazole -avoid NSAIDS IBS (irritable bowel syndrome) 04/21/2022 Assessment & Plan (01/28/2024 4:45 PM EST): - followed by [facility] last seen in May 2023 - s/p EGD and colonoscopy -GI prescribed dicyclomine, simethicone, and Creon, but she is not taking it; recommended to discuss with GI specialist before discontinuing it -work on stress reduction Assessment & Plan (05/05/2023 6:42 AM EST): - followed by [facility] last seen in Nov 2022 - [...] (04/29/2022 6:27 PM EST): - followed by [facility] last seen on 03/24/22 -continue dicyclomine [...] 4:48 PM EST): - previously seen by [facility] Clinician. - patient is not interested in behavioral health service -Pt was recommended to improve sleepy hygien and exercise during the day instead of taking medications Assessment & Plan (04/25/2022 4:35 PM EST): Was seen by [facility] Clinician. -Will check status of f/u. -Pt was recommended to improve sleepy hygien and exercise during the day instead of taking medications Dislocation of acromioclavicular joint 7 Migraine 05/04/2016 Assessment & Plan (04/28/2024 4:12 PM EST): -seen by [facility] neurologist in Apr 2019 -seen by [facility] neurology in Dec 2022 -04/23/22 Head [...] Plan (01/28/2024 4:50 PM EST): -seen by [facility] neurologist in Apr 2019 -seen by [facility] neurology in Dec 2022 -04/23/22 Head [...] Plan (05/05/2023 6:51 AM EST): -seen by [facility] neurologist in Apr 2019 -seen by [facility] neurology in Dec 2022 -04/23/22 Head [...] PM EDT): -last exacerbation requiring prednisone in 2017 -continue Advair as maintenance -continue albuterol -continue Singulair Assessment & Plan (04/29/2022 6:24 PM EST): -last exacerbation requiring prednisone in 2018 -continue Advair as maintenance -continue albuterol -continue Singulair Knee pain 12/12/2012 Resolved Problems Problem Noted Date Diagnosed Date Resolved Date Bleeding gums 03/02/2022 04/29/2022 Encounters Date Type Department Care Team Description 02/18/[address] [address] Lu Estrada MD No Show 02/17/[address] [address] Lu Estrada MD chartprep 02/14/2025 Orders Only GENERIC EXTERNAL DATA DEPARTMENT Provider, Generic External Data 02/10/2025 Patient Outreach [address] [address] Lu Estrada MD Pre-visit Planning (SDOH screening was completed on 12/18/2024) 01/27/2025 12:45 PM EST Office Visit [facility] [address] [place] [phone] Heidi Ennis Dental calculus (Primary Dx); Dental plaque 01/27/2025 Orders Only [address] [phone] Lu Estrada MD Moderate persistent asthma without complication; Chronic migraine without aura without status migrainosus, not intractable; Primary hypertension 01/24/[address] [phone] Lu Estrada MD Med Refill 01/17/2025 Results Follow-Up [facility] [address] [phone] Joseph Mix MD TSH W/Reflex to FT4, CBC auto differential, Basic Metabolic Panel 01/10/2025 Orders Only [facility] External Provider, [facility] 12/24/[address] [phone] Lu Estrada MD chart prep 12/23/2024 7:00 PM EDT Office Visit [facility] [address] [address] Joseph Mix MD Chills (Primary Dx); History of hypokalemia 12/23/2024 Travel 12/18/2024 Patient Outreach [facility] [address] [place] [address] Lu Estrada MD Pre-visit Planning (SDOH screening positive and Tobacco screening negative) 12/05/2024 9:15 AM EDT Office Visit [facility] [address] [place] [address] Aziza Mckoy, MIN Hypermetropia, bilateral (Primary Dx) 12/05/2024 Travel from Last 3 Months Immunizations Immunization Administration [...] Sign Reading Time Taken Comments Blood Pressure 126/72 01/27/2025 12:55 PM EST Pulse 76 12/23/2024 6:59 PM EDT Temperature [...] Description 07/29/2025 12:45 PM EDT Office Visit [facility] [address] [place] [address] Raymon, Heidi [address] [place] [address] Health Maintenance Due Date Last Done Comments Disability Screening 1985 Alcohol/Substance Use Screening 1999 Family Planning (PISQ) 2002 HPV Vaccines (1 - 3-dose series) 2002 COVID-19 Vaccine ( season) 2024 01/22/2024, 04/26/2023, 05/25/2021, Additional history exists Influenza Vaccine (#1) 2024 , 03/08/2023, 04/25/2022, Additional history exists Depression Screening 01/21/2025 01/22/2024, 01/22/20 24 Dental X-Ray: Full Mouth 03/03/2025 03/02/2022 Dental Oral Exam 07/28/2025 01/27/2025, , 03/02/2022 Dental Prophylaxis 07/28/2025 01/27/2025, 1 2023, 09/08/2023, Additional history exists SDOH Screening 12/18/2025 12/18/2024 Tobacco Screening 01/27/2026 01/27/2025 Dental X-Ray: Bitewings 01/28/2026 01/28/20 25, 09/08/2023, 03/02/2022 Pap Smear 12/04/2026 12/05/2023, 10/25/2022 Cervical Cancer [...] to 49) Years Completed 08/23/2022, 10/01/2008, 10/01/2008 Meningococcal B Vaccine Aged Out No l [...] Procedure Name Priority Date/Time Associated Diagnosis Comments HEMATOXYLIN AND EOSIN STAIN Routine 02/14/2025 12:46 PM EST HCG, QL, URINE Routine 02/14/2025 10:30 AM EST PERIODIC ORAL EVALUATION - ESTABLISHED PATIENT Routine 01/27/2025 12:45 PM EST CASE PRESENTATION, DETAILED AND EXTENSIVE TREATMENT PLANNING Routine 01/27/2025 12:45 PM EST Dental calculus Dental plaque ORAL HYGIENE INSTRUCTIONS Routine 01/27/2025 12:45 PM EST Dental calculus Dental plaque PROPHYLAXIS - ADULT Routine 01/27/2025 1 2:45 PM EST Dental calculus Dental plaque INTRAORAL - PERIAPICAL FIRST RADIOGRAPHIC IMAGE Routine 01/27/2025 12:45 PM EST Dental calculus Dental plaque BITEWINGS - 4 RADIOGRAPHIC IMAGES Routine 01/27/2025 12:45 PM EST Dental calculus Dental plaque BASIC METABOLIC PANEL Routine 01/16/2025 2:22 PM EDT Chills History of hypokalemia CBC WITH AUTO DIFFERENTIAL Routine 01/16/2025 2:22 PM EDT Chills TSH W/REFLEX TO FT4 Routine 01/16/2025 2 :22 PM EDT Chills US PELVIS TRANSVAGINAL Routine 01/10/2025 3:03 PM EDT LIPID PANEL WITH REFLEX TO DIRECT LDL Routine 01/22/2024 3:20 PM EDT Primary hypertension THINPREP IMAGING PAP AND HPV MRNA E6/E7 WITH REFLEX TO HPV 16,18/45 Routine 12/05/2023 12:00 AM EDT INTRAORAL - COMPLETE SERIES OF RADIOGRAPHIC IMAGES Routine 03/02/2022 9:00 AM EST ZZZ HISTORICAL HEPATITIS C AB W/REFL TO HCV RNA, QN, PCR Routine 03/16/2020 4:32 PM EST HIV 1/2 ANTIGEN/ANTIBODY, FOURTH GENERATION W/RFL Routine 03/16/2020 4:32 PM EST from Last 3 Months or Most Recently Relevant to Health Maintenance Results * Hematoxylin and Eosin Stain (02/14/2025 12:46 PM EST) 02/14/2025 12:4 6 PM EST 02/17/2025 8:26 AM EST [facility] - 02/18/2025 10:58 AM EST ----- ------- Name: Shruti Winters Age/Sex: 39/F : 1985 Unit#: [id number] Attend Dr: Kaden Jett MD Re02/14/25 Status: [facility] Location: [facility] Disch: ----- ------- SPEC : [id number] RECD: 02/17/25 STATUS: ROMI RIVERA NUM: [id number] MEÑO: 02/14/25 [facility] DR: Kaden Jett MD ENTERED: 02/17/25 SP TYPE: Surgical OTHR DR: Lu Estrada MD ORDERED: HE Stain/2, Gross Micro L4 Diagnosis Endometrium, curettage: Benign proliferative endometrium with focal stromal collapse; no atypia or carcinoma. Clinical History Pre-Op Dx: Polyp of cervix uteri Post-Op Dx: Normal endometrial cavity Microscopic Description Microscopic sections reviewed. Material Received [facility] Gross Description Received in formalin with rolled Telfa pad is a 2.0 cc aggregate of morton-brown spongy soft tissue, filtered through a mesh bag, totally submitted in cassette A1. (DTL) IHC S/NG Disclaimer NOTE: Unless otherwise stated, all tissue is formalin-fixed and paraffin-embedded. Some or all of the immunohistochemical tests reported herein may have been developed and their performance characteristics determined by [facility]. They have not been cleared or approved by the U.S. Food and Drug Administration (FDA). However, the FDA has determined that such clearance or approval is not necessary. This laboratory is certified under the Clinical Laboratory Improvement Amendments of 1988 (CLIA) as qualified to perform high complexity clinical laboratory testing. Copies To: Lu Estrada MD [address] [phone] Kaden Jett MD [facility] [address] [place] [address] Drive [address] [place] [address] CONTINUED ON NEXT PAGE ----- ------- Name: Mike RamseyShruti Age/Sex: 39/F : 1985 Unit#: [id number] Attend Dr: Kaden Jett MD Re02/14/25 Status: [facility] Location: [facility] Disch: ----- ------- SPEC : [id number] RECD: 02/17/25 STATUS: ROMI NICOLE NUM: [id number] MEÑO: 02/14/[address] [facility] [address]: Kaden Jett MD ENTERED: 02/17/25 SP TYPE: Surgical OTHR DR: Lu Estrada MD ORDERED: HE Stain/2, Gross Micro L4 Copies To: (Continued) [phone] ----- ------- Signed (signature on file) Shefali Martinez MD 02/18/25 1058 ----- ------- END OF REPORT [employer] External Data Provider LAB BLOOD ORDERAB LES Final Result Performing Organization Address [facility]/ZIP Co de Phone Number [facility] [address] [place] [phone] * HCG, Qualitative, Urine (02/14/2025 10:30 AM EST) Urine NEGATIVE NEGATIVE [facility] Comment:This test was develo ped to detect early . Falsenegative results may occur after the 5th - 7th week ofpregnancy when using this test method. If clinicallyindicated, consider a serum hCG. 02/14/2025 10:3 0 AM EST 02/14/2025 11:07 AM EST [employer] External Data Provider LAB URINE ORDERAB LES Final Result Performing Organization Address [facility]/ZIP Co de Phone Number [facility] [address] [place] [phone] * TSH W/Reflex to FT4 (01/16/2025 2:22 PM EDT) TSH reflex Free T4 0.91 0.32 - 4.0 uIU/mL [facility] Blood Venous blood specimen / Unknown 01/16/2025 2:22 PM EDT 01/16/2025 3:58 PM EDT us Joseph Mix MD LAB BLOOD ORDERABLES Final Resul t [facility] [address] [place] [address] [phone] * (ABNORMAL) CBC auto differential (01/16/2025 2:22 PM EDT) White Blood Count 5.6 4.8 - 10.8 X10*3/uL [facility] Red Blood Count 4.33 4.20 - 5.50 X10*6/uL [facility] Hemoglobin 12.4 12.0 - 16.0 g/dl [facility] Hematocrit 37.5 37.0 - 47.0 % [facility] Mean Corpuscular Volume 86.6 80.0 - 98.0 fL [facility] Mean Corpuscular Hemoglobin 28.6 27.0 - 33.0 pg [facility] Mean Corpuscular HGB Conc 33.1 31.0 - 35.0 g/dl [facility] Red Cell Distribution Width 13.8 11.0 - 16.0 % [facility] Platelet Count 241 160 - 400 X10*3/uL [facility] Mean Platelet Volume 10.6 9.4 - 12.3 fL [facility] Neutrophils Percent Auto 37.3(L) 45 - 73 % [facility] Imm Gran Pct Auto 0.2 0.0 - 0.4 % [facility] Lymphocytes Percent Auto 53.2(H) 20 - 40 % [facility] Monocytes Percent Auto 6.8 2 - 11 % [facility] Eosinophils Percent Auto 2.0 0 - 4 % [facility] Basophils Percent Auto 0.5 0 - 2 % [facility] NRBC Pct Auto 0.0 0.0 - 0.2 /100WBC [facility] Neutrophils Absolute Auto 2.1 2.0 - 8.3 x10*3/uL [facility] Imm Gran Abs Auto 0.01 0.00 - 0.03 X10*3/uL [facility] Lymphocytes Absolute Auto 3.0 1.2 - 4.9 X10*3/uL [facility] Monocytes Absolute Auto 0.4 0.1 - 1.2 X10*3/uL [facility] Eosinophils Absolute Auto 0.1 0.0 - 0.4 X10*3/uL [facility] Basophils Absolute Auto 0.0 0.0 - 0.2 X10*3/uL [facility] NRBC Abs Auto 0.000 0.0 - 0.012 X10*3/uL [facility] Blood Venous blood specimen / Unknown 01/16/2025 2:22 PM EDT 01/16/2025 3:58 PM EDT us Joseph Mix MD LAB BLOOD ORDERABLES Final Resul t [facility] [address] [place] [phone] * (ABNORMAL) Basic Metabolic Panel (01/16/2025 2:22 PM EDT) Sodium 140 135 - 145 mmol/L [facility] Potassium 3.8 3.3 - 5.1 mmol/L [facility] Chloride 110(H) 96 - 108 mmol/L [facility] Carbon Dioxide 23 22 - 29 mmol/L [facility] Anion Gap 11(L) 12 - 20 [facility] Urea Nitrogen (BUN) 11 9 - 16 mg/dL [facility] Creatinine, Serum 0.78 0.5 - 1.4 mg/dL [facility] Estimated Glomerular Filt Rate >60 [facility] Comment:Chronic Kidney Disea se: Estimated GFR < 60 mL/min/1.46e8Smhtgi Kidney Disease: Estimated GFR < 15 mL/min/1.73m2 Glucose 88 60 - 115 mg/dL [facility] Calcium 8.6 8.4 - 10.2 mg/dL [facility] Blood Venous blood specimen / Unknown 01/16/2025 2:22 PM EDT 01/16/2025 3:58 PM EDT us Joseph Mix MD LAB BLOOD ORDERABLES Final Resul t [facility] [address] [place] [phone] * US Pelvis Transvaginal (01/10/2025 3:03 PM EDT) Anatomical Region Laterality Modality Pelvis Ultrasound 01/10/2025 3:03 PM EDT Narrative 01/10/2025 4:02 PM EDT [address] [address] Ultrasound Report Signed Patient: Shruti Winters MR#: [id number] : 1985 Acct:[id number] Age/Sex: 39 / F ADM Date: 01/10/25 Loc: .US Attending Dr: Kaden Jett MD Ordering Physician: Kaden Jett MD Date of Service: 01/10/25 Procedure(s): US pelvic and transvaginal Accession Number(s): [id number] cc: Lu Estrada MD; Kaden Jett MD [...] 01/10/25 1558 DD/ 1503 TD/TT: 01/10/25 1525 Pool Table Operator: Procedure Note Donotuseinterpreter, Image - 01/10/2025 [place] [address] Ultrasound Report Signed Patient: Ajay Winters#: [id number] : 1985Acct:[id number] Age/Sex: 39 / FADM Date: 01/10/25 Loc: HO.US Attending Dr: Kaden Jett MD Ordering Physician: Kaden Jett MD Date of Service: 01/10/25 Procedure(s): US pelvic and transvaginal Accession Number(s): [id number] cc: Lu Estrada MD; Kaden Jett MD [...] 01/10/25 1558 DD/ 1503 TD/TT: 01/10/25 1525 Pool Table Operator: [facility] External Provider IMG US PROCEDURES Final Result * (ABNORMAL) Lipid Panel with Reflex to Direct LDL (01/22/2024 3:20 PM EDT) Triglycerides 88 <150 mg/dL [facility] Comment:Desirable Triglyceri de: less than 150 mg/dLBorderline High Triglyceride 150-199 mg/dLHigh Triglyceride: 200-499 mg/dLVery High Triglyceride: greater than or equal to 5OO mg/dL Cholesterol 183 <200 mg/dL [facility] Comment:Desirable Cholestero l: less than 200 mg/dLBorderline High Cholesterol: 200-239 mg/dLHigh Cholesterol: greater than 239 mg/dL LDL Cholesterol Calculated 126(H) <100 mg/dL [facility] Comment:Desirable LDL: less than 100 mg/dLNear Optimal/Above Optimal LDL: 110- 129 mg/dLBorderline High LDL: 130-159 mg/dLHigh LDL: 160-189 mg/dLVery High LDL: greater than or equal to 190 mg/dL HDL Cholesterol 40(L) >40 mg/dL [facility] Comment:Desirable HDL: great er than 40 mg/dL Note: This HDL assay may give artificially low results in patients with liver disease. Blood 01/22/2024 3:20 PM EDT 01/22/2024 4:05 PM EDT us Lu Estrada MD LAB BLOOD ORDERABLES Final Resul t [facility] [address] [place] [phone] * ThinPrep Imaging Pap and HPV mRNA E6/E7 with Reflex to HPV 16,18/45 (12/05/2023 12:00 AM EDT) HPV 16 RNA UTP [facility] HPV 18/45 RNA [facility] HPV nRNA E6/E7 Not Detected Not Detected [facility] Comment:Methodology: Transcr iption-Mediated AmplificationThis assay detects E6/E7 viral messenger RNA (mRNA) from 14high-risk HPV types (16,18,31,33,35,39,45,51,52,56,58,59,66,68).Cervical sources are required for HPV testing.If a vaginal source from a patient who has had atotal hysterectomy with removal of cervix wassubmitted, please contact the testing laboratoryfor alternative testing options.For additional information, please refer tohttp://education.[employer]/faq/SFQ001p8(This link if provided for information/educational purposes only.)THIS TEST WAS PERFORMED AT:[facility] [address] [phone] MILLS MD SOURCE: SEE NOTE [facility] Comment:None given Report Status: [facility] Clinical Information: SEE NOTE [facility] Comment:None given LMP: SEE NOTE [facility] Comment:NONE GIVEN Prev. PAP: SEE NOTE [facility] Comment:NONE GIVEN Prev. BX: SEE NOTE [facility] Comment:NONE GIVEN Statement Of Adequacy: SEE NOTE [facility] Comment:Satisfactory for tahmina luation.Endocervical/transformation zone componentpresent. General Categorization: [facility] Interpretation/Result: SEE NOTE [facility] Comment:Cytology Results: Ne gative for intraepitheliallesion or malignancy. Cytology Comment SEE NOTE [facility] Comment:This Pap test has be en evaluated with computerassisted technology. Awning Maker: SEE NOTE [facility] Comment:[place], CT(ASCP)CT scre ening location: [address] [address] Review Awning Maker: [facility] Pathologist [facility] PAP Infection [facility] See Note SEE [facility] Comment:EXPLANATORY NOTE:The Pap is a screening test for cervical cancer. It isnot a diagnostic test and is subject to false negativeand false positive results. It is most reliable when asatisfactory sample, regularly obtained, is submittedwith relevant clinical findings and history, and whenthe Pap result is evaluated along with historic andcurrent clinical information. 12/05/2023 12/05/2023 Narrative [facility] - 12/11/2023 1:12 PM EDT SEE SCANNED RESULTS IN EMR us Generic External Data Provider LAB PATHOLOGY ORD ERABLES Final Result [facility] [address] [place] [address] [phone] * HEPATITIS C AB W/REFL TO HCV RNA, QN, PCR (03/16/2020 4:32 PM EST) HEPATITIS C ANTIBODY NON-REACT CORA NON-REACT CORA [facility] INDEX 0.02 <1.00 [facility] Comment: HCV antibody was non-reactive. There is no laboratory evidence of HCV infection. In most cases, no further action is required. However, if recent HCV exposure is suspected, a test for HCV RNA (test code 61641) is suggested. For additional information please refer to http://[employer]/faq/QED85d9 (This link is being provided for informational/ educational purposes only.) 03/16/2020 4:32 PM EST us Lu Estrada MD HISTORICAL/NON ORDERABLE LABS Fi nal Result [facility] [address] * HIV 1/2 ANTIGEN/ANTIBODY,FOURTH GENERATION W/RFL [...] purpose. For additional information please refer to http://education.[employer].organgir.am/faq/ODG006 (This link is being provided for informational/ educational purposes only.) The performance of this assay has not been clinically validated in patients less than 2 years old. 03/16/2020 4:32 PM EST us Lu Estrada MD LAB BLOOD ORDERABLES Final Resul t [facility] [address] from Last 3 Months or Most Recently Relevant to Health Maintenance [place] [address] [place] [address] C3 [facility] MEDICAID STAND ADULT Care Teams Pediatric Surgeon Relationship Specialty Start Date End Date Lu Estrada MD [address] [place], [place] [phone] PCP - General Family Medicine 03/27/18
--- OUTSIDE RECORDS SUMMARY | 2025-02-27 21:51 | XMS_ITS | Encounter Summary ---
Author Organization [employer] Address [address] [place] [address] 7t [place] [address] Care Team Providers Care Embedded Software Programmer Name Role Phone Lu Estrada MD Primary Care Provider [phone] Encounter Details Date Type Department Care Team ([facility] Contact Info) Description 03/18/2022 Abstract [facility] [address] [place] [address] Viet Kellogg DDS 230 [place] [address] Social History Tobacco Use Types Packs/Day Years [...] Encounters Date Type Department Care Team ([facility] Contact Info) Description 07/29/2025 12:45 PM EDT Office Visit [facility] [address] [place] [address] Heidi Ennis 230 [place] [address] documented as of this encounter Visit Diagnoses Not on filedocumented in this encounter Care Teams Embedded Software Programmer Relationship Specialty Start Date End Date Lu Estrada MD 230 [place] [address] PCP - General Family Medicine 03/27/18 documented as of this encounter
--- OUTSIDE RECORDS SUMMARY | 2025-02-27 21:51 | XMS_ITS | Encounter Summary ---
Author Organization [employer] Address [address] [place] [address] 7 [place] [address] Care Team Providers Care Delicatessen Manager Name Role Phone Lu Estrada MD Primary Care Provider [phone] Encounter Details Date Type Department Care Team (Late st Contact Info) Description 04/04/2022 Abstract [facility] 230 [place] [address] Viet Kellogg DDS 230 [place] [address] Social History Tobacco Use Types Packs/Day Years [...] Description 07/29/2025 12:45 PM EDT Office Visit [facility] 230 [place] [address] Heidi Ennis 230 [place] [address] documented as of this encounter Visit Diagnoses Not on filedocumented in this encounter Care Teams Delicatessen Manager Relationship Specialty Start Date End Date Lu Estrada MD 230 [place] [address] PCP - General Family Medicine 03/27/18 documented as of this encounter
--- OUTSIDE RECORDS SUMMARY | 2025-02-27 21:51 | XMS_ITS | Encounter Summary ---
Author Organization [employer] Address [address] [place] [address] 7 [place] [address] Care Team Providers Care Jewelry Repairer Name Role Phone Lu Estrada MD Primary Care Provider [phone] Reason for Visit * Reason Comments Med Refill Encounter Details Date Type Department Care Team (Late Contact Info) Description 04/19/2022 Refill [facility] MED[facility] 230 [place] [address] Leatha Chong MD 230 [place] [address] Primary hypertension (Primary Dx) Social History Tobacco [...] Department Care Team (Late Contact Info) Description 07/29/2025 12:45 PM EDT Office Visit [facility] ADULT DENTAL 230 [place] [address] Heidi Ennis 230 [place] [address] documented as of this encounter Visit Diagnoses Diagnosis Primary hypertension- Primary Unspecified essential hypertension documented in this encounter Care Teams Jewelry Repairer Relationship Specialty Start Date End Date Lu Estrada MD [address] [place] [address] PCP - General Family Medicine 03/27/18 documented as of this encounter
--- OUTSIDE RECORDS SUMMARY | 2025-02-27 21:51 | XMS_ITS | Encounter Summary ---
Author Organization [employer] Address [address] [place] [address] 7t [place] [address] Care Team Providers Care Ski Base Trimmer Name Role Phone Lu Estrada MD Primary Care Provider [phone] Reason for Referral * Consultation (Routine) - Closed Specialty Diagnoses / Procedures Referred By Amanda mead Referred To Contact Orthopaedic Surgery Diagnoses Ganglion cyst of wrist, right Lu Estrada MD 230 [place] [address] Phone: tel: fax: [facility] Referral ID Status Reason Start Date Expiration Date V isits Requested Visits Authorized [id number] Closed Specialty Services Required 06/25/2024 06/25/2025 12 12 Encounter Details Date Type Department Care Team (Late st Contact Info) Description 06/24/2024 Orders Only [facility] [address] [place] [phone] Lu Estrada MD 230 [place], [place] [phone] Ganglion cyst of wrist, right (Primary Dx) [...] Description 07/29/2025 12:45 PM EDT Office Visit [facility] 230 [place] [address] Raymon, Heidi 230 [place] [address] Scheduled Referrals Name Type Priority Associated Diagnoses [...] documented as of this encounter Care Teams Ski Base Trimmer Relationship Specialty Start Date End Date Lu Estrada MD 230 [place] [address] PCP - General Family Medicine 03/27/18 documented as of this encounter
--- OUTSIDE RECORDS SUMMARY | 2025-02-27 21:51 | XMS_ITS | Encounter Summary ---
Author Organization [employer] Address [address] [place] [address] 7 [place] [address] Care Team Providers Care Field Examiner Name Role Phone Lu Estrada MD Primary Care Provider [phone] Encounter Details Date Type Department Care Team (Late st Contact Info) Description 04/19/2022 Orders Only [facility] [address] [place] [address] Lu Estrada MD 230 [place] [address] Social History Tobacco Use Types Packs/Day Years [...] Description 07/29/2025 12:45 PM EDT Office Visit [facility] [address] [place] [address] Raymon, Heidi 230 [place], [place] [phone] documented as of this encounter Visit Diagnoses Not on filedocumented in this encounter Care Teams Field Examiner Relationship Specialty Start Date End Date Lu Estrada MD [address] [place] [address] PCP - General Family Medicine 03/27/18 documented as of this encounter
--- OUTSIDE RECORDS SUMMARY | 2025-02-27 21:51 | XMS_ITS | Encounter Summary ---
Demographics Address [address] [facility] [address] [address] [place] [address] Home Phone Work Phone Mobile Phone Email Address Preferred Language en Marital Status Single Mosque Affiliation Unknown Race Other Race Ethnic Group Unknown Author Organization [employer] Address [address] 7t [place] [address] Care Team Providers Care Manager Internet Name Role Phone Lu Estrada MD Primary Care Provider [phone] Encounter Details Date Type Department Care Team ([facility] Contact Info) Description 01/27/2025 Orders Only [facility] 230 [place] [address] Lu Estrada MD 230 [place] [address] Moderate persistent asthma without complication; Chronic migraine without aura without status migrainosus, not intractable; Primary hypertension Social History Tobacco Use Types Packs/Day Years [...] Description 07/29/2025 12:45 PM EDT Office Visit [facility] ADULT [facility] 230 [place] [address] Raymon, Heidi [address] [place] [address] documented as of this encounter Visit Diagnoses Diagnosis Moderate persistent asthma without complication Chronic migraine without aura without status migrainosus, not intractable Primary hypertension Unspecified essential hypertension documented in this encounter Additional Health Concerns Assessment Noted Time PHQ-9 Depression Total Score: 5 01/22/20 24 3:06 PM EDT documented as of this encounter Care Teams Manager Internet Relationship Specialty Start Date End Date Lu Estrada MD 230 [place] [address] PCP - General Family Medicine 03/27/18 documented as of this encounter
--- OUTSIDE RECORDS SUMMARY | 2025-02-27 21:52 | XMS_ITS | Encounter Summary ---
Author Organization [employer] Address [address] [facility] 7t [place] [address] Care Team Providers Care Rn Residential Name Role Phone Lu Estrada MD Primary Care Provider [phone] Reason for Visit * Reason Onset Date Comments Letter for School/Work 04/27/2023 Encounter Details Date Type Department Care Team ([facility] Contact Info) Description 04/27/2023 Telephone [facility] 230 [place] [address] Lu Estrada MD 230 [place] [address] Letter for School/Work Social History Tobacco Use [...] 12:45 PM EDT Office Visit [facility] 230 [place] [address] Raymon, Heidi 230 [place] [address] documented as of this encounter Visit Diagnoses Not on filedocumented in this encounter Additional Health Concerns Assessment Noted Time PHQ-9 Depression Total Score: 0 03/08/20 23 11:18 AM EST documented as of this encounter Care Teams Rn Residential Relationship Specialty Start Date End Date Lu Estrada MD 230 [place] [address] PCP - General Family Medicine 03/27/18 documented as of this encounter
--- OUTSIDE RECORDS SUMMARY | 2025-02-27 21:52 | XMS_ITS | Encounter Summary ---
Demographics Address [address] [facility] [address] [place] [address] Home Phone Work Phone Mobile Phone Email Address Preferred Language en Marital Status Single Christianity Affiliation Unknown Race Other Race Ethnic Group Unknown Author Organization [employer] Address [address] 7t [place] [address] Care Team Providers Care Pharmaceutical Service Representative Name Role Phone Lu Estrada MD Primary Care Provider [phone] Reason for Visit * Reason Comments Med Refill Encounter Details Date Type Department Care Team ([facility] Contact Info) Description 03/09/2023 Refill [facility]S [address] [place] [address] Vandana Black, ANP 230 [place] [address] Social History Tobacco Use Types Packs/Day Years [...] Description 07/29/2025 12:45 PM EDT Office Visit [facility]ULT D[facility] 230 [place] [address] Raymon Heidi 230 [place] [address] documented as of this encounter Visit Diagnoses Not on filedocumented in this encounter Additional Health Concerns Assessment Noted Time PHQ-9 Depression Total Score: 0 03/08/20 23 11:18 AM EST documented as of this encounter Care Teams Pharmaceutical Service Representative Relationship Specialty Start Date End Date Lu Estrada MD 230 [place] [address] PCP - General Family Medicine 03/27/18 documented as of this encounter
--- OUTSIDE RECORDS SUMMARY | 2025-02-27 21:52 | XMS_ITS | Encounter Summary ---
Author Organization [employer] Address [address] [facility] 7t [place] [address] Care Team Providers Care Cemetery Laborer Name Role Phone Lu Estrada MD Primary Care Provider [phone] Reason for Visit * Reason Comments Med Refill Encounter Details Date Type Department Care Team ([facility] st Contact Info) Description 05/01/2023 Refill [facility] MED[facility] 230 [place] [address] Lorri Eduardo, 230 [place] [address] Social History Tobacco Use Types Packs/Day Years [...] Description 07/29/2025 12:45 PM EDT Office Visit [facility] ADULT DENTAL 230 [place] [address] Raymon, Heidi 230 [place] [address] documented as of this encounter Visit Diagnoses Not on filedocumented in this encounter Additional Health Concerns Assessment Noted Time PHQ-9 Depression Total Score: 0 03/08/20 23 11:18 AM EST documented as of this encounter Care Teams Cemetery Laborer Relationship Specialty Start Date End Date Lu Estrada MD 230 [place] [address] PCP - General Family Medicine 03/27/18 documented as of this encounter
--- OUTSIDE RECORDS SUMMARY | 2025-02-27 21:52 | XMS_ITS | Encounter Summary ---
Author Organization [employer] Address [address] [place] [address] 7t [place] [address] Care Team Providers Care Medical Records Secretary Name Role Phone Lu Estrada MD Primary Care Provider [phone] Encounter Details Date Type Department Care Team ([facility] Contact Info) Description 10/17/2022 Abstract [facility] 230 [place], [place] [phone] Raymon Heidi 230 [place] [address] Social History Tobacco Use Types Packs/Day Years [...] Encounters Date Type Department Care Team ([facility] Contact Info) Description 07/29/2025 12:45 PM EDT Office Visit [facility] 230 [place], [place] [phone] Heidi Ennis 230 [place] [address] documented as of this encounter Visit Diagnoses Not on filedocumented in this encounter Care Teams Medical Records Secretary Relationship Specialty Start Date End Date Lu Estrada MD [address] [place] [address] PCP - General Family Medicine 03/27/18 documented as of this encounter
--- OUTSIDE RECORDS SUMMARY | 2025-02-27 21:52 | XMS_ITS | Encounter Summary ---
Author Organization [employer] Address [address] [place] [address] 7t [place] [address] Care Team Providers Care Bottle Capping Machine Operator Name Role Phone Lu Estrada MD Primary Care Provider [phone] Reason for Visit * Reason Onset Date Comments Appointment Request 12/23/2022 Derm Encounter Details Date Type Department Care Team ([facility] Contact Info) Description 12/23/2022 Telephone [facility] 230 [place] [address] Lu Estrada MD 230 [place] [address] Appointment Request (Derm ) Social History Tobacco [...] 12:45 PM EDT Office Visit [facility] 230 [place], [place] [phone] Raymon, Heidi 230 [place] [address] documented as of this encounter Visit Diagnoses Not on filedocumented in this encounter Care Teams Bottle Capping Machine Operator Relationship Specialty Start Date End Date Lu Estrada MD 230 [place], [place] [phone] PCP - General Family Medicine 03/27/18 documented as of this encounter
--- OUTSIDE RECORDS SUMMARY | 2025-02-27 21:52 | XMS_ITS | Encounter Summary ---
Author Organization [employer] Address [address] [facility] 7t [place] [address] Care Team Providers Care Environmental Lawyer Name Role Phone Lu Estrada MD Primary Care Provider [phone] Reason for Visit * Reason Comments Med Refill Encounter Details Date Type Department Care Team ([facility] [place] Contact Info) Description 03/09/2023 Refill [facility] 230 [place] [address] Lu Estrada MD 230 [place] [address] Social History Tobacco Use Types Packs/Day Years [...] Description 07/29/2025 12:45 PM EDT Office Visit [facility] ADULT DENTAL [address] [place] [address] Raymon Heidi [address] [place] [address] documented as of this encounter Visit Diagnoses Not on filedocumented in this encounter Additional Health Concerns Assessment Noted Time PHQ-9 Depression Total Score: 0 03/08/20 23 11:18 AM EST documented as of this encounter Care Teams Environmental Lawyer Relationship Specialty Start Date End Date Lu Estrada MD 230 [place] [address] PCP - General Family Medicine 03/27/18 documented as of this encounter
--- OUTSIDE RECORDS SUMMARY | 2025-02-27 21:52 | XMS_ITS | Encounter Summary ---
Author Organization [employer] Address [address] 7t [place] [address] Care Team Providers Care Arabic Teacher Name Role Phone Lu Estrada MD Primary Care Provider [phone] Encounter Details Date Type Department Care Team ([facility] Contact Info) Description 05/29/2023 Abstract [facility] MED[facility] 230 [place], [place] [phone] Lu Estrada MD 230 [place], [place] [phone] Social History Tobacco Use Types Packs/Day Years [...] Description 07/29/2025 12:45 PM EDT Office Visit [facility] ADULT DENTAL 230 [place] [address] Raymon, Heidi 230 [place] [address] documented as of this encounter Procedures Procedure [...] documented as of this encounter Care Teams Arabic Teacher Relationship Specialty Start Date End Date Lu Estrada MD 230 [place], [place] [phone] PCP - General Family Medicine 03/27/18 documented as of this encounter
--- OUTSIDE RECORDS SUMMARY | 2025-02-27 21:52 | XMS_ITS | Encounter Summary ---
Author Organization [employer] Address [address] [facility] 7t [place] [address] Care Team Providers Care Systems Lead Name Role Phone Lu Estrada MD Primary Care Provider [phone] Reason for Visit * Reason Comments Med Refill Encounter Details Date Type Department Care Team ([facility] st Contact Info) Description 03/09/2023 Refill [facility] 230 [place] [address] Lorri Eduardo, 230 [place] [address] Social History Tobacco Use Types Packs/Day Years [...] 07/29/2025 12:45 PM EDT Office Visit [facility] ADULT D[facility] 230 [place] [address] Raymon, Heidi 230 [place] [address] documented as of this encounter Visit Diagnoses Not on filedocumented in this encounter Additional Health Concerns Assessment Noted Time PHQ-9 Depression Total Score: 0 03/08/20 23 11:18 AM EST documented as of this encounter Care Teams Systems Lead Relationship Specialty Start Date End Date Lu Estrada MD 230 [place] [address] PCP - General Family Medicine 03/27/18 documented as of this encounter
--- OUTSIDE RECORDS SUMMARY | 2025-02-27 21:52 | XMS_ITS | Encounter Summary ---
Demographics Address [address] [facility] [address] [place] [address] Home Phone Work Phone Mobile Phone Email Address Preferred Language en Marital Status Single Presybeterian Affiliation Unknown Race Other Race Ethnic Group Unknown Author Organization [employer] Address [address] [facility] 7t [place] [address] Care Team Providers Care Rug Cutter Name Role Phone Lu Estrada MD Primary Care Provider [phone] Encounter Details Date Type Department Care Team ([facility] Contact Info) Description 03/28/2024 Orders Only [facility] & [facility]EDS [address] [place] [address] Elliot Antunez MD 505 [place] [address] Social History Tobacco Use Types Packs/Day Years [...] Description 07/29/2025 12:45 PM EDT Office Visit [facility] ADULT DENTAL 230 [place] [address] Heidi Ennis [address] [place] [address] documented as of this encounter Visit Diagnoses Not on filedocumented in this encounter Additional Health Concerns Assessment Noted Time PHQ-9 Depression Total Score: 5 01/22/20 24 3:06 PM EDT documented as of this encounter Care Teams Rug Cutter Relationship Specialty Start Date End Date Lu Estrada MD 230 [place] [address] PCP - General Family Medicine 03/27/18 documented as of this encounter
--- OUTSIDE RECORDS SUMMARY | 2025-02-27 21:53 | XMS_ITS | Encounter Summary ---
Author Organization [employer] Address [address] [place] [address] 7t [place] [address] Care Team Providers Care Geographic Information Scientist Name Role Phone Lu Estrada MD Primary Care Provider [phone] Reason for Visit * Reason Comments Med Refill Encounter Details Date Type Department Care Team ([facility] Contact Info) Description 04/22/2022 Refill [facility] MED & PEDS [address] [place] [address] Vandana Black, ANP 230 [place] [address] Social History Tobacco Use Types Packs/Day Years [...] Care Team ([facility] Contact Info) Description 07/29/2025 12:45 PM EDT Office Visit [facility] ADULT DENTAL 230 [place] [address] Mc Ennisaris [address] [place] [address] documented as of this encounter Visit Diagnoses Not on filedocumented in this encounter Care Teams Geographic Information Scientist Relationship Specialty Start Date End Date Lu Estrada MD 230 [place] [address] PCP - General Family Medicine 03/27/18 documented as of this encounter
--- OUTSIDE RECORDS SUMMARY | 2025-02-27 21:53 | XMS_ITS | Encounter Summary ---
Demographics Address [address] [facility] [address] [place] [address] Home Phone Work Phone Mobile Phone Email Address Preferred Language en Marital Status Single Sikhism Affiliation Unknown Race Other Race Ethnic Group Unknown Author Organization [employer] Address [address] [facility] 7t [place] [address] Care Team Providers Care Lieutenant/Deputy Name Role Phone Lu Estrada MD Primary Care Provider [phone] Encounter Details Date Type Department Care Team ([facility] st Contact Info) Description 04/30/2024 Orders Only [facility] MEDICINE 230 [place] [address] Lu Estrada MD 230 [place], [place] [phone] Abnormal CT of the abdomen (Primary Dx); [...] 12:45 PM EDT Office Visit [facility] ADULT DENTAL 230 [place] [address] Raymon, Heidi 230 [place] [address] documented as of this encounter Procedures Procedure Name Priority Date/Time Associated Diagnosis Comments BI MAMMOGRAM DIAGNOSTIC TOMOSYNTHESIS BILATERAL Routine 06/07/2024 10:00 AM EDT documented in this encounter Results * BI Mammogram Diagnostic Tomosynthesis Bilateral (06/07/2024 10:00 AM EDT) Anatomical Region Laterality Modality Breast Bilateral Mammography 06/07/2024 10:0 0 AM EDT Narrative 06/07/2024 11:42 AM EDT [facility] [address] [place] [address] Mammography Report Signed Patient: Shruti Winters MR#: [id number] : 1985 Acct:[id number] Age/Sex: 39 / F ADM Date: 06/07/24 Loc: HO.MAMMO Attending Dr: Lu Estrada MD Ordering Physician: Lu Estrada MD Results: 1Negative Date of Service: 06/07/24 Follow Up: Mammo at 42 or e arlier if clinically needed Procedure(s): MM tomosynthesis diagnostic BI Accession Number(s): [id number] cc: Lu Estrada MD EXAMINATION: MM DIAGNOSTIC [...] 06/07/24 1139 DD/ 1000 TD/TT: 06/07/24 1018 Machine Skiver: Procedure Note Donotuseinterpreter, Image - 06/07/2024 [facility] [address] [place] [address] Dr. Webber, SONNY [address] Mammography Report Signed Patient: Ajay Winters#: [id number] : 1985Acct:[id number] Age/Sex: 39 / FADM Date: 06/07/24 Loc: HO.MAMMO Attending Dr: Lu Estrada MD Ordering Physician: Lu Estrada MDResults: 1Negative Date of Service: 06/07/24Follow Up: Mammo at 42 or e arlier if clinically needed Procedure(s): MM tomosynthesis diagnostic BI Accession Number(s): [id number] cc: Lu Estrada MD EXAMINATION: MM DIAGNOSTIC [...] 06/07/24 1139 DD/ 1000 TD/TT: 06/07/24 1018 Machine Skiver: Lu Estrada MD IMG BI PROCEDURES Final [...] documented as of this encounter Care Teams Lieutenant/Deputy Relationship Specialty Start Date End Date Lu Estrada MD 230 [place] [address] PCP - General Family Medicine 03/27/18 documented as of this encounter
--- OUTSIDE RECORDS SUMMARY | 2025-02-27 21:53 | XMS_ITS | Encounter Summary ---
Author Organization [employer] Address [address] [facility] 7t [place] [address] Care Team Providers Care Strategic Insights Lead Name Role Phone Lu Estrada MD Primary Care Provider [phone] Reason for Visit * Reason Onset Date Comments Appointment 07/05/2022 Encounter Details Date Type Department Care Team ([facility] st Contact Info) Description 07/05/2022 Telephone [facility] ADULT DENTAL 230 [place] [address] Raymon, Heidi [address] [place] [address] Appointment Social History Tobacco Use Types Packs/Day [...] Description 07/29/2025 12:45 PM EDT Office Visit [facility] ADULT DENTAL 230 [place], [place] [phone] Raymon, Heidi 230 [place], [place] [phone] documented as of this encounter Visit Diagnoses Not on filedocumented in this encounter Care Teams Strategic Insights Lead Relationship Specialty Start Date End Date Lu Estrada MD 230 [place], [place] [phone] PCP - General Family Medicine 03/27/18 documented as of this encounter
--- OUTSIDE RECORDS SUMMARY | 2025-02-27 21:53 | XMS_ITS | Encounter Summary ---
Author Organization [employer] Address [address] [place] [address] 7 [place] [address] Care Team Providers Care Radial Router Operator Name Role Phone Lu Estrada MD Primary Care Provider Reason for Visit * Reason Comments Med Refill Encounter Details Date Type Department Care Team (Late Contact Info) Description 06/08/2022 Refill [facility] MEDICINE [address] [place] [address] Danny Lundy MD [address] [place] [address] Social History Tobacco Use Types Packs/Day Years [...] Description 07/29/2025 12:45 PM EDT Office Visit [facility] ADULT DENTAL [address] [place] [address] Heidi Ennis [address] [place] [address] documented as of this encounter Visit Diagnoses Not on filedocumented in this encounter Care Teams Radial Router Operator Relationship Specialty Start Date End Date Lu Estrada MD [address] [place] [address] PCP - General Family Medicine 03/27/18 documented as of this encounter
--- OUTSIDE RECORDS SUMMARY | 2025-02-27 21:53 | XMS_ITS | Encounter Summary ---
Author Organization [employer] Address [address] [place] [address] 7t [place] [address] Care Team Providers Care Reproduction Order Processor Name Role Phone Lu Estrada MD Primary Care Provider [phone] Encounter Details Date Type Department Care Team ([facility] Contact Info) Description 10/17/[address] [facility] ADULT DENTAL [address] [place], [place] [phone] Raymon Heidi [address] [place] [address] Social History Tobacco Use Types Packs/Day Years [...] Upcoming Encounters Date Type Department Care Team ([facility] Contact Info) Description 07/29/2025 12:45 PM EDT Office Visit [facility] ADULT DENTAL [address] [place], [place] [phone] Heidi Ennis [address] [place] [address] documented as of this encounter Visit Diagnoses Not on filedocumented in this encounter Care Teams Reproduction Order Processor Relationship Specialty Start Date End Date Lu Estrada MD [address] [place] [address] PCP - General Family Medicine 03/27/18 documented as of this encounter
--- OUTSIDE RECORDS SUMMARY | 2025-02-27 21:53 | XMS_ITS | Encounter Summary ---
Demographics Address [address] [place] [address] Home Phone Work Phone Mobile Phone Email Address Preferred Language en Marital Status Single Zoroastrianism Affiliation Unknown Race Other Race Ethnic Group Unknown Author Organization [employer] Address [address] [facility] 7[address] [place] [address] Care Team Providers Care Lay Up Operator Name Role Phone Lu Estrada MD Primary Care Provider [phone] Reason for Visit * Reason Comments Med Refill Encounter Details Date Type Department Care Team ([facility] st Contact Info) Description 06/18/2022 Refill [facility] CHC MED & PEDS [address] [place] [address] Vandana Black, ANP [address] [place] [address] Social History Tobacco Use Types Packs/Day Years [...] 12:45 PM EDT Office Visit [facility] ADULT DENTAL [address] [place] [address] Raymon, Heidi [address] [place] [address] documented as of this encounter Visit Diagnoses Not on filedocumented in this encounter Care Teams Lay Up Operator Relationship Specialty Start Date End Date Lu Estrada MD [address] [place] [address] PCP - General Family Medicine 03/27/18 documented as of this encounter
== END 2025-02-27 16:10 | disposition home or self-care (01) ==
LOC: HO.HWS 15:45
PROVIDERS: PCP Family Medicine; Visit Provider Obstetrics & Gynecology
DX: N84.1 Polyp of cervix uteri (principal); R10.20 Pelvic and perineal pain unspecified side; R31.29 Other microscopic hematuria
CPT/HCPCS: 99213

== ENCOUNTER → 2025-02-27 15:44 | Outpatient (BNVA) | payer MEDICAID, SELFPAY | PROVIDERS: PCP Family Medicine; Visit Provider Obstetrics & Gynecology | DX: Z48.816 Encounter for surgical aftercare following surgery on the genitourinary system (principal); R10.20 Pelvic and perineal pain unspecified side | CPT/HCPCS: 99212 ==

== ENCOUNTER 2025-03-02 18:46 | Emergency (ER) | payer MEDICAID, SELFPAY ==
--- NOTE | ~2025-03-02 | CT_ITS ---
CLINICAL HISTORY: LUQ Flank Pain; Hematuria CT abdomen and pelvis with contrast Comparison: CT/REG/SR - CT ABDOMEN PELVIS WO IV CON - 11/25/24 03:17 EDT Findings: The lung bases are clear. The liver, gallbladder, pancreas, spleen, adrenal glands, and kidneys are unremarkable. There is no urolithiasis or hydronephrosis. There is no pyelonephritis. The appendix is normal. The remainder of the gastrointestinal tract is unremarkable. There are no enlarged lymph nodes. The aorta and IVC are normal. The uterus and adnexa are unremarkable. The bladder is decompressed. There is no fracture or suspicious lytic or sclerotic lesion. IMPRESSION: No acute abnormality in the abdomen or pelvis. This document has been electronically signed by: Keaton Gaxiola MD on 03/03/2025 03:03:40
[2025-03-02 19:03] VITALS: BP 152/75; PULSE 88; RESP 16; TEMP 37.1; O2SAT 100; BMI 28.8
--- NOTE | 2025-03-02 19:03 | ED.GENADULT ---
HPI - General Adult General Chief complaint: General Medical Stated complaint: General Medical Time Seen by Provider: 03/02/25 23:27 Source: patient, RN notes reviewed and old records reviewed Mode of arrival: ambulatory Limitations: no limitations History of Present Illness ED Provider: Agustín BEACH HPI narrative: Patient is a 39 year old female with a past medical history of endocervical polyp, ovarian cysts, HTN, IBS, and migraines presenting today with a 3 day history of left flank pain, chills, body aches, and nausea. Pt reports the pain comes on randomly, starts at left mid back and radiates up her back and into her left upper abdomen. Pt denies trauma, recent heavy lifting, or falls. Pt states on , had a polyp removed by Dr. Jett. Denies vaginal bleeding, itching, urinary frequency, urgency, or burning urination. Pt states that she feels her urine is hot and reports urinary hesitancy. Her menstrual period is due next week. Pt states she has taken Motrin and Excedrin with no resolution of sxs. Related Data Home Medications ?Medication ?Instructions ?Recorded ?Confirmed albuterol sulfate 90 mcg/actuation 1 inh inhalation QID 01/15/20 02/12/25 aerosol inhaler (Proventil HFA) [id number]-taycwube 250 1 tab PO Q4-6H PRN Headache 01/15/20 02/12/25 mg-250 mg-65 mg tablet (Excedrin Migraine) montelukast 10 mg tablet 10 mg PO BEDTIME 01/15/20 02/12/25 (Singulair) cholecalciferol (vitamin D3) 50 50 mcg PO DAILY 03/16/22 02/12/25 mcg (2,000 unit) capsule (Vitamin D3) lisinopril 10 mg tablet 10 mg PO DAILY 03/16/22 02/12/25 Previous Rx's ?Medication ?Instructions ?Recorded [id number]-vifpcvxwbsevj-vfugbivd 1 cap PO Q8H PRN pain #3 caps 08/09/21 50 mg-300 mg-40 mg capsule (Fioricet) naproxen 500 mg tablet (Naprosyn) 500 mg PO BID #20 tabs 01/13/24 ibuprofen 600 mg tablet 600 mg PO Q6H PRN fever or pain 02/19/24 #30 tabs acetaminophen 500 mg tablet 500 mg PO Q6H PRN fever or pain 04/30/24 (Tylenol Extra Strength) #14 tabs cyclobenzaprine 5 mg tablet 5 mg PO Q8H PRN pain (scale score 04/30/24 7-10) 5 days #14 tabs lidocaine 5 % topical patch 1 patch topical DAILY PRN pain #30 04/30/24 (Lidoderm) ea loratadine 10 mg tablet 10 mg PO DAILY PRN allergic 06/18/24 (Allerclear) symptoms #30 tabs pantoprazole 40 mg tablet,delayed 40 mg PO BID 90 days #180 tabs 11/11/24 release methocarbamol 1,000 mg tablet 1,000 mg PO TID #20 tabs 11/25/24 omeprazole 20 mg capsule,delayed 20 mg PO DAILY 14 days #14 caps 11/25/24 release ondansetron 4 mg disintegrating 4 mg PO Q8H PRN nausea and 11/25/24 tablet vomiting 3 days #12 tabs terbinafine HCl 1 % topical cream 1 appl topical TID #30 grams 12/16/24 (Athlete's Foot (terbinafine)) acetaminophen 500 mg capsule 1,000 mg (2 x 500 mg) PO .q8 PRN 03/03/25 fever or pain #30 caps cephalexin 500 mg capsule 500 mg PO QID #28 caps 03/03/25 ibuprofen 600 mg tablet 600 mg PO Q8H PRN fever or pain 03/03/25 #30 tabs Allergies Allergy/AdvReac Type Severity Reaction Status Date / Time No Known Allergies (No Known Allergy Verified 03/02/25 19:10 Allergies*) Review of Systems Review of Systems: Yes all other systems are reviewed and are negative Constitutional: Constitutional: Reports body ache(s), Reports chills, Denies fever(s) and Reports headache(s) ENT: Reports headache(s) Cardiovascular: Cardiovascular: Denies chest pain, Denies lightheadedness and Denies dyspnea Respiratory: Respiratory: Denies cough and Denies dyspnea Gastrointestinal: Gastrointestinal: Reports abdominal pain, Denies diarrhea, Reports nausea and Denies vomiting Genitourinary: Genitourinary: Denies hematuria, Reports urinary frequency, Reports flank pain, Denies urinary hesitancy and Denies urinary urgency Neurologic: Reports headache(s) PMFSH Past Medical History Medical History GERD (gastroesophageal reflux disease) Simple ovarian cyst Hypertension IBS (irritable bowel syndrome) Fibromyalgia Asthma Migraines Surgical History Hx of excision of mass Hx of colonoscopy History of esophagogastroduodenoscopy (EGD) History of loop electrical excision procedure (LEEP) Hx of tubal ligation Family History Family History Mother Diabetes HTN (hypertension) Asthma Brother Asthma Social History Social History Household Members: Children Are you a primary home care rn to a significant other at home: No Do you presently have visiting nurse or other home services: No Alcohol intake: never Patient Tobacco Use Status: Never used Tobacco Substance Use Type: Marijuana Advance Directives Date on File: 08/29/24 Current occupational status: employed 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 Sexual orientation: Straight/Heterosexual Gender identity: Female Physical Exam ED Vital Signs: Vital Signs - 24 hr 03/02/25 19:03 03/03/25 01:50 03/03/25 05:45 Temperature 98.7 F 98.6 F 98.2 F Pulse Rate 88 65 65 Respiratory Rate 16 16 16 Blood Pressure 152/75 H 137/85 126/73 Pulse Oximetry 100 100 100 Oxygen Delivery Method Room Air Room Air Room Air 03/03/25 06:09 Temperature 98.2 F Pulse Rate 65 Respiratory Rate 16 Blood Pressure 126/73 Pulse Oximetry 100 Oxygen Delivery Method Room Air BMI result Body Mass Index 28.8 Const General: cooperative, healthy appearing, comfortable and no acute distress Orientation/consciousness: patient oriented x3 Limitations: no limitations GI Inspection: Yes normal to inspection Palpation (GI): Soft to palpation, Tenderness to palpation present (GI) in the LUQ; with no rebound tenderness, no guarding and not rigid Auscultation: normal bowel sounds General: Yes no CVA tenderness Back/Spine/Pelvis Back: no CVA tenderness Neuro General: patient oriented x3 Course Course Course Narrative: This is a Rapid Medical Exam performed in triage by Rosaura Butler PA-C. Full HPI, ROS and PE to be performed by primary ED provider. 39 yo F w/pmhx GERD, HTN, IBS, Asthma, Migraines, fibromyalgia presenting to the ED c/o myalgias, chills & nausea x3 days. Admits to Diagnostic Hysteroscopy, Dilataion & Curettage by Dr. Jett on 02/14/25 - unclear if sx are related. denies fever, cough, sore throat, urinary sx, vaginal bleeding/discharge. Also reports weight loss PE: NAD, nontoxic appearing, ambulating w/steady gait, abdomen soft & nontender Plan: labs, UA, SARs Medications Administered Discontinued Medications Generic Name Dose Route Start Last Admin Trade Name Freq PRN Reason Stop Dose Admin Cephalexin HCl 500 mg 03/03/25 05:49 03/03/25 06:05 Cephalexin 500 Mg Capsule PO 03/03/25 05:50 500 mg ONCE ONE Administration Sodium Chloride 1,000 mls @ 999 mls/hr 03/03/25 01:30 03/03/25 03:48 Ns IV 03/03/25 02:30 Infused .Q1H1M SURESH Infusion Iohexol 85 ml 03/03/25 01:42 03/03/25 01:42 Iohexol 350 Mg/Ml 100 Ml Infus..Btl IV 03/03/25 01:43 85 ml ONCE ONE Administration Ketorolac Tromethamine 15 mg 03/03/25 01:19 03/03/25 01:35 Ketorolac Tromethamine 15 Mg/Ml Vial IVPUSH 03/03/25 01:20 15 mg ONCE ONE Administration Medical Decision Making Medical Decision Making MDM Narrative: Patient is a 39 year old female with a past medical history of endocervical polyp, ovarian cysts, HTN, IBS, and migraines presenting today with a 3 day history of left flank pain, chills, body aches, and nausea. Pt reports the pain comes on randomly, starts at left mid back and radiates up her back and into her left upper abdomen. Pt denies trauma, recent heavy lifting, or falls. Pt states on , had a polyp removed by Dr. Jett. Denies vaginal bleeding, itching, urinary frequency, urgency, or burning urination. Pt states that she feels her urine is hot and reports urinary hesitancy. Her menstrual period is due next week. Pt states she has taken Motrin and Excedrin with no resolution of sxs. 5:46 AM 03/03/2025 (Violet BEACH): The patient's CT has resulted and shows no acute intra-abdominal pathology. Due to the patient's recent obgyn hospitalist physician procedure, symptoms of hesitancy and warmth while urinating, with a urinalysis showing 1+ bacteria and trace leukocyte esterase, we will treat for suspected UTI. Differential Diagnosis Differential Diagnoses: The differential diagnosis associated with the presentation includes Admission/Observation Consideration of admission/observation: Escalation of care including admission/observation considered Lab Data MDM Lab Attestation statement: I reviewed the patient's lab results. 03/02/25 19:29 03/02/25 19:29 Labs: Lab Results 03/02/25 03/02/25 Range/Units 19:29 19:34 WBC 6.4 (4.8-10.8) X10*3/uL RBC 4.53 (4.20-5.50) X10*6/uL Hgb 12.9 (12.0-16.0) g/dl Hct 39.8 (37.0-47.0) % MCV 87.9 (80.0-98.0) fL MCH 28.5 (27.0-33.0) pg MCHC 32.4 (31.0-35.0) g/dl RDW 13.4 (11.0-16.0) % Plt Count 243 (160-400) X10*3/uL MPV 10.6 (9.4-12.3) fL Immature Gran % (Auto) 0.2 (0.0-0.4) % Neut % (Auto) 43.7 L (45-73) % Lymph % (Auto) 46.9 H (20-40) % Nance % (Auto) 7.1 (2-11) % Eos % (Auto) 1.3 (0-4) % Baso % (Auto) 0.8 (0-2) % Lymph # (Auto) 3.0 (1.2-4.9) X10*3/uL Nance # (Auto) 0.5 (0.1-1.2) X10*3/uL Eos # (Auto) 0.1 (0.0-0.4) X10*3/uL Baso # (Auto) 0.1 (0.0-0.2) X10*3/uL Abs Immat Gran (auto) 0.01 (0.00-0.03) X10*3/uL Absolute Neuts (auto) 2.8 (2.0-8.3) x10*3/uL Absolute Nucleated RBC 0.000 (0.0-0.012) X10*3/uL Nucleated RBC % (auto) 0.0 (0.0-0.2) /100WBC Sodium 139 (135-145) mmol/L Potassium 3.5 (3.3-5.1) mmol/L Chloride 109 H (96-108) mmol/L Carbon Dioxide 23 (22-29) mmol/L Anion Gap 11 L (12-20) BUN 17 H (9-16) mg/dL Creatinine 1.14 (0.5-1.4) mg/dL Estim Creat Clear Calc 72.5 Estimated GFR 54 Random Glucose 68 (60-115) mg/dL Calcium 9.1 (8.4-10.2) mg/dL Magnesium 2.2 (1.6-2.6) mg/dL Total Bilirubin 0.8 (0.0-1.0) mg/dL Direct Bilirubin 0.2 (0.0-0.5) mg/dL AST 18 (5-31) U/L ALT 16 (0-31) U/L Alkaline Phosphatase 51 (39-117) U/L Total Protein 7.5 (6.5-8.0) g/dL Albumin 4.7 (3.5-5.0) g/dL Lipase 19 (8-78) U/L Urine Color Yellow Urine Appearance Cloudy Urine pH 5.5 (5.0-9.0) Ur Specific Christopher >= 1.030 H (1.005-1.025) Urine Protein Trace (Neg-Trace) mg/dL Urine Glucose (UA) Negative (Negative) mg/dL Urine Ketones Trace (Negative) mg/dL Urine Blood Negative (Negative) Urine Nitrite Negative (Negative) Ur Leukocyte Esterase Trace H (Negative) Urine RBC >20 H (0-2) /HPF Urine WBC 0-5 (0-5) /HPF Ur Squamous Epith Cells 11-20 (0-2) /HPF Urine Bacteria 1+ (None Seen) Hyaline Casts 0-2 (0-2) /LPF Urine Test NEGATIVE (NEGATIVE) Influenza Type A (PCR) NEGATIVE (Negative) Influenza Type B (PCR) NEGATIVE (Negative) RSV RNA Qual (PCR) NEGATIVE (Negative) SARS-CoV-2 RNA (RT-PCR) NEGATIVE (Negative) Radiology Impression Discussion of test interpretation with radiology: I have reviewed the radiologist's reading. Radiologist Impression: CT abdomen and pelvis with contrast Comparison: CT/REG/SR - CT ABDOMEN PELVIS WO IV CON - 11/25/24 03:17 EDT Findings: The lung bases are clear. The liver, gallbladder, pancreas, spleen, adrenal glands, and kidneys are unremarkable. There is no urolithiasis or hydronephrosis. There is no pyelonephritis. The appendix is normal. The remainder of the gastrointestinal tract is unremarkable. There are no enlarged lymph nodes. The aorta and IVC are normal. The uterus and adnexa are unremarkable. The bladder is decompressed. There is no fracture or suspicious lytic or sclerotic lesion. IMPRESSION: No acute abnormality in the abdomen or pelvis. This document has been electronically signed by: Keaton Gaxiola MD on 03/03/2025 03:03:40 External Record Review External record reviewed: Outpatient record and Prior outpatient labs Discharge Plan Discharge Clinical Impression: Abdominal pain Qualifiers: Abdominal location: left upper quadrant Qualified Code(s): R10.12 - Left upper quadrant pain Urinary tract infection Qualifiers: Urinary tract infection type: acute cystitis Hematuria presence: with hematuria Qualified Code(s): N30.01 - Acute cystitis with hematuria Patient Disposition: Home, Self-Care Instructions: Urinary Tract Infection in Women (ED), Abdominal Pain (ED) Additional Instructions: Thank you for choosing [facility]'s Emergency Department for your care today. Thankfully your laboratory evaluation, CT, exam, and vital signs today are reassuring At this time there is no indication for emergent surgical intervention, admission to the hospital or continued ED observation, and it is safe to discharge you home. Your CT shows no evidence of bowel obstruction, appendicitis, or kidney stone. Your urinalysis is questionable for a UTI, however given your symptoms of warmth while urinating, sensation of incomplete voiding, and recent gynecological procedure, we are treating you with cephalexin for a suspected UTI. Please take this as prescribed until finished. Please follow up with the your marine oiler for re-evaluation and additional management of your symptoms. You should take alternating (staggered) doses of ibuprofen 600mg and Tylenol 1000mg every 4 hours as needed for any additional pain. Please stay well hydrated and get plenty of rest. Please follow up with your primary care physician for re-evaluation, additional management of your symptoms, and continued preventative care. If you do not have a primary care physician, please call the [facility] at [phone] to establish a new primary care physician. While waiting to establish your new primary care physician, you can call our Walk-in [facility] at [phone] for non-emergency needs. Please return to the emergency department if you develop a severe or sudden change in your symptoms, a fever over 100.4 that does not improve with Tylenol or Ibuprofen, recurrent vomiting, or any other new or worsening symptoms or concerns. Prescriptions: New cephalexin 500 mg capsule 500 mg PO QID Qty: 28 0RF ibuprofen 600 mg tablet 600 mg PO Q8H PRN (Reason: fever or pain) Qty: 30 0RF acetaminophen 500 mg capsule 1,000 mg PO .q8 PRN (Reason: fever or pain) Qty: 30 0RF No Action pantoprazole 40 mg tablet,delayed release (DR/EC) 40 mg PO BID 90 Days Qty: 180 1RF [id number]-aqnnxoazheueo-nhvh [Fioricet] 50-300-40 mg capsule 1 cap PO Q8H PRN (Reason: pain) Qty: 3 0RF naproxen [Naprosyn] 500 mg tablet 500 mg PO BID Qty: 20 0RF omeprazole 20 mg capsule,delayed release(DR/EC) 20 mg PO DAILY 14 Days Qty: 14 0RF ondansetron 4 mg tablet,disintegrating 4 mg PO Q8H PRN (Reason: nausea and vomiting) 3 Days Qty: 12 0RF methocarbamol 1,000 mg tablet 1,000 mg PO TID Qty: 20 0RF terbinafine HCl [Athlete's Foot (terbinafine)] 1 % cream 1 appl topical TID Qty: 30 1RF ibuprofen 600 mg tablet 600 mg PO Q6H PRN (Reason: fever or pain) Qty: 30 0RF acetaminophen [Tylenol Extra Strength] 500 mg tablet 500 mg PO Q6H PRN (Reason: fever or pain) Qty: 14 0RF lidocaine [Lidoderm] 5 % adhesive patch,medicated 1 patch topical DAILY MDD remove after 12 hours PRN (Reason: pain) Qty: 30 0RF Rx Instructions: leave on most painful area for up to 12 hrs cyclobenzaprine 5 mg tablet 5 mg PO Q8H PRN (Reason: pain (scale score 7-10)) 5 Days Qty: 14 0RF loratadine [Allerclear] 10 mg tablet 10 mg PO DAILY PRN (Reason: allergic symptoms) Qty: 30 0RF albuterol sulfate [Proventil HFA] 90 mcg/actuation HFA aerosol inhaler 1 inh inhalation QID montelukast [Singulair] 10 mg tablet 10 mg PO BEDTIME Excedrin Migraine 250-250-65 mg tablet 1 tab PO Q4-6H PRN (Reason: Headache) lisinopril 10 mg tablet 10 mg PO DAILY cholecalciferol (vitamin D3) [Vitamin D3] 50 mcg (2,000 unit) capsule 50 mcg PO DAILY Referrals: [facility] [Primary Care Provider, Medical] Clinical Impression: Urinary tract infection; Abdominal pain Kaden Jett MD [Physician, BRAND MARKETING INTERN] Clinical Impression: Urinary tract infection; Abdominal pain Stand Alone Forms: Work/School Release Interventions: ED Discharge Assessment Last Done: 03/03/25 06:09 Discharge Date/Time: 03/03/25 06:10 Print Language: Libyan
[2025-03-02 19:36] LABS: MANUAL DIFF FLAG NO
[2025-03-02 19:38] LABS: Hematocrit 39.8 % (37.0-47.0); Hemoglobin 12.9 g/dl (12.0-16.0); Imm Gran Abs Auto 0.01 X10*3/uL (0.00-0.03); Imm Gran Pct Auto 0.2 % (0.0-0.4); Lymphocytes Absolute Auto 3.0 X10*3/uL (1.2-4.9); Mean Corpuscular HGB Conc 32.4 g/dl (31.0-35.0); Mean Corpuscular Hemoglobin 28.5 pg (27.0-33.0); Mean Corpuscular Volume 87.9 fL (80.0-98.0); NRBC Abs Auto 0.000 X10*3/uL (0.0-0.012); NRBC Pct Auto 0.0 /100WBC (0.0-0.2); Platelet Count 243 X10*3/uL (160-400); Red Blood Count 4.53 X10*6/uL (4.20-5.50); White Blood Count 6.4 X10*3/uL (4.8-10.8)
[2025-03-02 19:51] LABS: Alanine Aminotransferase 16 U/L (0-31); Albumin Level 4.7 g/dL (3.5-5.0); Alkaline Phosphatase 51 U/L (39-117); Anion Gap 11 (12-20); Aspartate Amino Transferase 18 U/L (5-31); Blood Urea Nitrogen 17 mg/dL (9-16); Calcium 9.1 mg/dL (8.4-10.2); Carbon Dioxide 23 mmol/L (22-29); Chloride 109 mmol/L (96-108); Creatinine Clr Calc Pharmacy 72.5; Estimated Glomerular Filt Rate 54; Lipase 19 U/L (8-78); Magnesium 2.2 mg/dL (1.6-2.6); Potassium 3.5 mmol/L (3.3-5.1); Sodium 139 mmol/L (135-145); Total Protein 7.5 g/dL (6.5-8.0)
[2025-03-02 19:57] LABS: Appearance Urine Cloudy; Glucose Urine UA Negative (Negative); PH 5.5 (5.0-9.0); Specific Gravity - Urine >= 1.030 (1.005-1.025); UMIC TRIGGER UACC YES; UPreg QC Valid YES
[2025-03-02 20:40] LABS: Resp Syncy Virus RNA Qual PCR NEGATIVE (Negative); SARS COV2 PCR INHOUSE NEGATIVE (Negative)
--- OUTSIDE RECORDS SUMMARY | 2025-03-02 23:47 | XMS_ITS | Encounter Summary ---
Demographics Address [address] [place] [address] Home Phone Work Phone Mobile Phone Email Address Preferred Language en Marital Status Single Hindu Affiliation Unknown Race Other Race Ethnic Group Unknown Author Organization [employer] Address [address] [facility] 7t [place] [address] Care Team Providers Care School Adjustment Counselor Name Role Phone Lu Estrada MD Primary Care Provider [phone] Reason for Visit * Reason Comments Med Refill Encounter Details Date Type Department Care Team ([facility] st Contact Info) Description 06/18/[address] [facility] CHC MED & PEDS [address] [place] [address] Vandana Black, ANP [address] [place] [address] Social History Tobacco Use Types Packs/Day Years [...] 12:45 PM EDT Office Visit [facility] ADULT DENTAL [address] [place] [address] Raymon, Heidi [address] [place] [address] documented as of this encounter Visit Diagnoses Not on filedocumented in this encounter Care Teams School Adjustment Counselor Relationship Specialty Start Date End Date Lu Estrada MD [address] [place] [address] PCP - General Family Medicine 03/27/18 documented as of this encounter
--- OUTSIDE RECORDS SUMMARY | 2025-03-02 23:47 | XMS_ITS | Encounter Summary ---
Author Organization [employer] Address [address] [facility] [address]t [place] [address] Care Team Providers Care Ironworker Machine Operator Name Role Phone Lu Estrada MD Primary Care Provider [phone] Reason for Visit * Reason Comments Med Refill Encounter Details Date Type Department Care Team ([facility] st Contact Info) Description 05/01/2023 Refill [facility] MEDICINE [address] [place] [address] Lorri Eduardo, [address] [place] [address] Social History Tobacco Use Types Packs/Day Years [...] Description 07/29/2025 12:45 PM EDT Office Visit [facility] ADULT DENTAL [address] [place] [address] Raymon, Heidi [address] [place] [address] documented as of this encounter Visit Diagnoses Not on filedocumented in this encounter Additional Health Concerns Assessment Noted Time PHQ-9 Depression Total Score: 0 03/08/20 23 11:18 AM EST documented as of this encounter Care Teams Ironworker Machine Operator Relationship Specialty Start Date End Date Lu Estrada MD [address] [place] [address] PCP - General Family Medicine 03/27/18 documented as of this encounter
--- OUTSIDE RECORDS SUMMARY | 2025-03-02 23:47 | XMS_ITS | Encounter Summary ---
Author Organization [employer] Address [address] [place] [address] Care Team Providers Care Leading Firefighter Name Role Phone Lu Estrada MD Primary Care Provider [phone] Encounter Details Date Type Department Care Team ([facility] Contact Info) Description 05/29/2023 Abstract [facility] MEDICINE [address] [place], [place] [phone] Lu Estrada MD [address] [place], [place] [phone] Social History Tobacco Use Types Packs/Day Years [...] 12:45 PM EDT Office Visit [facility] ADULT DENTAL [address] [place] [address] Raymon, Heidi [address] [place] [address] documented as of this encounter Procedures Procedure [...] documented as of this encounter Care Teams Leading Firefighter Relationship Specialty Start Date End Date Lu Estrada MD [address] [place], [place] [phone] PCP - General Family Medicine 03/27/18 documented as of this encounter
--- OUTSIDE RECORDS SUMMARY | 2025-03-02 23:47 | XMS_ITS | Encounter Summary ---
Author Organization [employer] Address [address] [place] [address] [address] [place] [address] Care Team Providers Care Barrel Finisher Name Role Phone Lu Estrada MD Primary Care Provider [phone] Reason for Visit * Reason Comments Med Refill Encounter Details Date Type Department Care Team (Late Contact Info) Description 04/19/2022 Refill [facility] MEDICINE [address] [place] [address] Leatha Chong MD [address] [place] [address] Primary hypertension (Primary Dx) Social History Tobacco [...] Description 07/29/2025 12:45 PM EDT Office Visit [facility] ADULT DENTAL [address] [place] [address] Heidi Ennis [address] [place] [address] documented as of this encounter Visit Diagnoses Diagnosis Primary hypertension- Primary Unspecified essential hypertension documented in this encounter Care Teams Barrel Finisher Relationship Specialty Start Date End Date Lu Estrada MD [address] [place] [address] PCP - General Family Medicine 03/27/18 documented as of this encounter
--- OUTSIDE RECORDS SUMMARY | 2025-03-02 23:47 | XMS_ITS | Encounter Summary ---
Author Organization [employer] Address [address] [place] [address] 7t [place] [address] Care Team Providers Care Supervisor Packing Room Name Role Phone Lu Estrada MD Primary Care Provider [phone] Encounter Details Date Type Department Care Team (Late st Contact Info) Description 04/19/2022 Orders Only [facility] MEDICINE [address] [place] [address] Lu Estrada MD [address] [place] [address] Social History Tobacco Use Types Packs/Day Years [...] Description 07/29/2025 12:45 PM EDT Office Visit [facility] ADULT DENTAL [address] [place] [address] Raymon, Heidi [address] [place], [place] [phone] documented as of this encounter Visit Diagnoses Not on filedocumented in this encounter Care Teams Supervisor Packing Room Relationship Specialty Start Date End Date Lu Estrada MD [address] [place] [phone] PCP - General Family Medicine 03/27/18 documented as of this encounter
--- OUTSIDE RECORDS SUMMARY | 2025-03-02 23:47 | XMS_ITS | Encounter Summary ---
Demographics Address [address] [facility] [address] [place] [address] Home Phone Work Phone Mobile Phone Email Address Preferred Language en Marital Status Single Religion Affiliation Unknown Race Other Race Ethnic Group Unknown Author Organization [employer] Address [address] [facility] 7t [place] [address] Care Team Providers Care Collections Agent Name Role Phone Lu Estrada MD Primary Care Provider [phone] Encounter Details Date Type Department Care Team ([facility] Contact Info) Description 03/28/2024 Orders Only [facility] MED & PEDS [address] [place] [address] Elliot Antunez MD [address] [place] [address] Social History Tobacco Use Types Packs/Day Years [...] Description 07/29/2025 12:45 PM EDT Office Visit [facility] ADULT DENTAL [address] [place] [address] Heidi Ennis [address] [place] [address] documented as of this encounter Visit Diagnoses Not on filedocumented in this encounter Additional Health Concerns Assessment Noted Time PHQ-9 Depression Total Score: 5 01/22/20 24 3:06 PM EDT documented as of this encounter Care Teams Collections Agent Relationship Specialty Start Date End Date Lu Estrada MD 230 [place] [address] PCP - General Family Medicine 03/27/18 documented as of this encounter
--- OUTSIDE RECORDS SUMMARY | 2025-03-02 23:47 | XMS_ITS | Encounter Summary ---
Author Organization [employer] Address [address] [facility] 7t [place] [address] Care Team Providers Care Galley Worker Name Role Phone Lu Estrada MD Primary Care Provider [phone] Reason for Visit * Reason Comments Med Refill Encounter Details Date Type Department Care Team ([facility] Contact Info) Description 03/09/2023 Refill [facility] MEDICINE [address] [place] [address] Lu Estrada MD [address] [place] [address] Social History Tobacco Use Types Packs/Day Years [...] Description 07/29/2025 12:45 PM EDT Office Visit [facility] ADULT DENTAL [address] [place] [address] Raymon Heidi [address] [place] [address] documented as of this encounter Visit Diagnoses Not on filedocumented in this encounter Additional Health Concerns Assessment Noted Time PHQ-9 Depression Total Score: 0 03/08/20 23 11:18 AM EST documented as of this encounter Care Teams Galley Worker Relationship Specialty Start Date End Date Lu Estrada MD [address] [place] [address] PCP - General Family Medicine 03/27/18 documented as of this encounter
--- OUTSIDE RECORDS SUMMARY | 2025-03-02 23:47 | XMS_ITS | Encounter Summary ---
Author Organization [employer] Address [address] [place] [address] 7 [place] [address] Care Team Providers Care Supervisor Roller Shop Name Role Phone Lu Estrada MD Primary Care Provider [phone] Encounter Details Date Type Department Care Team (Late st Contact Info) Description 04/04/2022 Abstract [facility] ADULT DENTAL [address] [place] [address] Viet Kellogg DDS [address] [place] [address] Social History Tobacco Use Types Packs/Day Years [...] Description 07/29/2025 12:45 PM EDT Office Visit [facility] ADULT DENTAL [address] [place] [address] Heidi Ennis [address] [place] [address] documented as of this encounter Visit Diagnoses Not on filedocumented in this encounter Care Teams Supervisor Roller Shop Relationship Specialty Start Date End Date Lu Estrada MD [address] [place] [address] PCP - General Family Medicine 03/27/18 documented as of this encounter
--- OUTSIDE RECORDS SUMMARY | 2025-03-02 23:47 | XMS_ITS | Encounter Summary ---
Author Organization [employer] Address [address] [place] [address] 7t [place] [address] Care Team Providers Care Inventory And Pricing Associate Name Role Phone Lu Estrada MD Primary Care Provider [phone] Reason for Visit * Reason Comments Med Refill Encounter Details Date Type Department Care Team ([facility] Contact Info) Description 04/22/2022 Refill [facility] CHC MED & PEDS [address] [place] [address] Vandana Black, ANP [address] [place] [address] Social History Tobacco Use Types Packs/Day Years [...] Upcoming Encounters Date Type Department Care Team ([facility] Contact Info) Description 07/29/2025 12:45 PM EDT Office Visit [facility] ADULT DENTAL [address] [place] [address] Mc Ennisaris [address] [place] [address] documented as of this encounter Visit Diagnoses Not on filedocumented in this encounter Care Teams Inventory And Pricing Associate Relationship Specialty Start Date End Date Lu Estrada MD [address] [place] [address] PCP - General Family Medicine 03/27/18 documented as of this encounter
--- OUTSIDE RECORDS SUMMARY | 2025-03-02 23:47 | XMS_ITS | Clinical Summary ---
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; advised to contact her surgeon or TIMBER MANAGEMENT PROFESSOR Atypical chest pain 07/13/2022 Enlarged tonsils 07/13/2022 [...] Plan (04/25/2022 4:36 PM EST): -followed by [facility] GI continue famotidine -continue pantoprazole -avoid NSAIDS IBS (irritable bowel syndrome) 04/21/2022 Assessment & Plan (01/28/2024 4:45 PM EST): - followed by [facility] GI last seen in May 2023 - s/p EGD and colonoscopy -GI prescribed dicyclomine, simethicone, and Creon, but she is not taking it; recommended to discuss with GI specialist before discontinuing it -work on stress reduction Assessment & Plan (05/05/2023 6:42 AM EST): - followed by [facility] GI last seen in Nov 2022 - [...] (04/29/2022 6:27 PM EST): - followed by [facility] GI last seen on 03/24/22 -continue dicyclomine [...] 4:48 PM EST): - previously seen by [facility] Clinician. - patient is not interested in behavioral health service -Pt was recommended to improve sleepy hygien and exercise during the day instead of taking medications Assessment & Plan (04/25/2022 4:35 PM EST): Was seen by [facility] Clinician. -Will check status of f/u. -Pt was recommended to improve sleepy hygien and exercise during the day instead of taking medications Dislocation of acromioclavicular joint 7 Migraine 05/04/2016 Assessment & Plan (04/28/2024 4:12 PM EST): -seen by [facility] neurologist in Apr 2019 -seen by [facility] neurology in Dec 2022 -04/23/22 Head [...] Plan (01/28/2024 4:50 PM EST): -seen by [facility] neurologist in Apr 2019 -seen by [facility] neurology in Dec 2022 -04/23/22 Head [...] Plan (05/05/2023 6:51 AM EST): -seen by [facility] neurologist in Apr 2019 -seen by [facility] neurology in Dec 2022 -04/23/22 Head [...] Type Department Care Team Description 02/18/[address] [address] Lu Estrada MD No Show 02/17/[address] [address] Lu Estrada MD chartprep 02/14/2025 Orders Only GENERIC EXTERNAL DATA DEPARTMENT Provider, Generic External Data 02/10/2025 Patient Outreach [address] [address] Lu Estrada MD Pre-visit Planning (SDOH screening was completed on 12/18/2024) 01/27/2025 12:45 PM EST Office Visit [facility] ADULT DENTAL [address] [place] [address] Heidi Ennis Dental calculus (Primary Dx); Dental plaque 01/27/2025 Orders Only [address] [phone] Lu Estrada MD Moderate persistent asthma without complication; Chronic migraine without aura without status migrainosus, not intractable; Primary hypertension 01/24/[address] [phone] Lu Estrada MD Med Refill 01/17/2025 Results Follow-Up [facility] WALK-IN [address] [phone] Joseph Mix MD TSH W/Reflex to FT4, CBC auto differential, Basic Metabolic Panel 01/10/2025 Orders Only [facility] External Provider, [facility] 12/24/[address] [phone] Lu Estrada MD chart prep 12/23/2024 7:00 PM EDT Office Visit [facility] WALK-IN [address] [address] Joseph Mix MD Chills (Primary Dx); History of hypokalemia 12/23/2024 Travel 12/18/2024 Patient Outreach [facility] MEDICINE [address] [place] [address] Lu Estrada MD Pre-visit Planning (SDOH screening positive and Tobacco screening negative) 12/05/2024 9:15 AM EDT Office Visit [facility] OPTOMETRY [address] [place] [address] Aziza Mckoy, MIN Hypermetropia, bilateral (Primary Dx) [...] 07/29/2025 12:45 PM EDT Office Visit [facility] ADULT DENTAL [address] [place] [address] Raymon, Heidi [address] [place] [address] Health Maintenance Due Date Last Done Comments [...] 6 PM EST 02/17/2025 8:26 AM EST [facility] LABS - 02/18/2025 10:58 AM EST ----- ------- Name: Shruti Winters Age/Sex: 39/F : 1985 Unit#: [id number] Attend Dr: Kaden Jett MD Re02/14/25 Status: [facility] Location: [facility] Disch: ----- ------- SPEC : [id number] RECD: 02/17/25 STATUS: ROMI RIVERA NUM: [id number] MEÑO: 02/14/[address] [facility] [address]: Kaden Jett MD ENTERED: 02/17/25 SP TYPE: Surgical OTHR DR: Lu Estrada MD ORDERED: HE Stain/2, Gross Micro L4 Diagnosis Endometrium, curettage: Benign proliferative endometrium with focal stromal collapse; no atypia or carcinoma. Clinical History Pre-Op Dx: Polyp of cervix uteri Post-Op Dx: Normal endometrial cavity Microscopic Description Microscopic sections reviewed. Material Received [facility] Gross Description Received in formalin with rolled Telfa pad is a 2.0 cc aggregate of morton-brown spongy soft tissue, filtered through a mesh bag, totally submitted in cassette A1. (DTL) IHC S/NG Disclaimer NOTE: Unless otherwise stated, all tissue is formalin-fixed and paraffin-embedded. Some or all of the immunohistochemical tests reported herein may have been developed and their performance characteristics determined by [facility]. They have not been cleared or approved by the U.S. Food and Drug Administration (FDA). However, the FDA has determined that such clearance or approval is not necessary. This laboratory is certified under the Clinical Laboratory Improvement Amendments of 1988 (CLIA) as qualified to perform high complexity clinical laboratory testing. Copies To: Lu Estrada MD [address] [phone] Kaden Jett MD [facility] [address] [place] [address] Drive [address] [place] [address] CONTINUED ON NEXT PAGE ----- ------- Name: Mike RamseyShruti Age/Sex: 39/F : 1985 Unit#: [id number] Attend Dr: Kaden Jett MD Re02/14/25 Status: [facility] Location: [facility] Disch: ----- ------- SPEC : [id number] RECD: 02/17/25 STATUS: ROMI NICOLE NUM: [id number] MEÑO: 02/14/[address] [facility] [address]: Kaden Jett MD ENTERED: 02/17/25 SP TYPE: Surgical OTHR DR: Lu Estrada MD ORDERED: HE Stain/2, Gross Micro L4 Copies To: (Continued) [phone] ----- ------- Signed (signature on file) Shefali Martinez MD 02/18/25 1058 ----- ------- END OF REPORT [employer] External Data Provider LAB BLOOD ORDERAB LES Final Result Performing Organization Address [facility]/ZIP Co de Phone Number [facility] [address] [place] [phone] * HCG, Qualitative, Urine (02/14/2025 10:30 AM EST) Urine NEGATIVE NEGATIVE [facility] Comment:This test was develo ped to detect early . Falsenegative results may occur after the 5th - 7th week ofpregnancy when using this test method. If clinicallyindicated, consider a serum hCG. 02/14/2025 10:3 0 AM EST 02/14/2025 11:07 AM EST [employer] External Data Provider LAB URINE ORDERAB LES Final Result Performing Organization Address [facility]/ZIP Co de Phone Number [facility] [address] [place] [phone] * TSH W/Reflex to FT4 (01/16/2025 2:22 PM EDT) TSH reflex Free T4 0.91 0.32 - 4.0 uIU/mL [facility] Blood Venous blood specimen / Unknown 01/16/2025 2:22 PM EDT 01/16/2025 3:58 PM EDT us Joseph Mix MD LAB BLOOD ORDERABLES Final Resul t [facility] [address] [place] [address] [phone] * (ABNORMAL) CBC auto differential (01/16/2025 2:22 PM EDT) White Blood Count 5.6 4.8 - 10.8 X10*3/uL [facility] Red Blood Count 4.33 4.20 - 5.50 X10*6/uL [facility] Hemoglobin 12.4 12.0 - 16.0 g/dl [facility] Hematocrit 37.5 37.0 - 47.0 % [facility] Mean Corpuscular Volume 86.6 80.0 - 98.0 fL [facility] Mean Corpuscular Hemoglobin 28.6 27.0 - 33.0 pg [facility] Mean Corpuscular HGB Conc 33.1 31.0 - 35.0 g/dl [facility] Red Cell Distribution Width 13.8 11.0 - 16.0 % [facility] Platelet Count 241 160 - 400 X10*3/uL [facility] Mean Platelet Volume 10.6 9.4 - 12.3 fL [facility] Neutrophils Percent Auto 37.3(L) 45 - 73 % [facility] Imm Gran Pct Auto 0.2 0.0 - 0.4 % [facility] Lymphocytes Percent Auto 53.2(H) 20 - 40 % [facility] Monocytes Percent Auto 6.8 2 - 11 % [facility] Eosinophils Percent Auto 2.0 0 - 4 % [facility] Basophils Percent Auto 0.5 0 - 2 % [facility] NRBC Pct Auto 0.0 0.0 - 0.2 /100WBC [facility] Neutrophils Absolute Auto 2.1 2.0 - 8.3 x10*3/uL [facility] Imm Gran Abs Auto 0.01 0.00 - 0.03 X10*3/uL [facility] Lymphocytes Absolute Auto 3.0 1.2 - 4.9 X10*3/uL [facility] Monocytes Absolute Auto 0.4 0.1 - 1.2 X10*3/uL [facility] Eosinophils Absolute Auto 0.1 0.0 - 0.4 X10*3/uL [facility] Basophils Absolute Auto 0.0 0.0 - 0.2 X10*3/uL [facility] NRBC Abs Auto 0.000 0.0 - 0.012 X10*3/uL [facility] Blood Venous blood specimen / Unknown 01/16/2025 2:22 PM EDT 01/16/2025 3:58 PM EDT us Joseph Mix MD LAB BLOOD ORDERABLES Final Resul t [facility] [address] [place] [phone] * (ABNORMAL) Basic Metabolic Panel (01/16/2025 2:22 PM EDT) Sodium 140 135 - 145 mmol/L [facility] Potassium 3.8 3.3 - 5.1 mmol/L [facility] Chloride 110(H) 96 - 108 mmol/L [facility] Carbon Dioxide 23 22 - 29 mmol/L [facility] Anion Gap 11(L) 12 - 20 [facility] Urea Nitrogen (BUN) 11 9 - 16 mg/dL [facility] Creatinine, Serum 0.78 0.5 - 1.4 mg/dL [facility] Estimated Glomerular Filt Rate >60 [facility] Comment:Chronic Kidney Disea se: Estimated GFR < 60 mL/min/1.38o5Udqsiq Kidney Disease: Estimated GFR < 15 mL/min/1.73m2 Glucose 88 60 - 115 mg/dL [facility] Calcium 8.6 8.4 - 10.2 mg/dL [facility] Blood Venous blood specimen / Unknown 01/16/2025 2:22 PM EDT 01/16/2025 3:58 PM EDT us Joseph Mix MD LAB BLOOD ORDERABLES Final Resul t [facility] [address] [place] [phone] * US Pelvis Transvaginal (01/10/2025 3:03 PM EDT) Anatomical Region Laterality Modality Pelvis Ultrasound 01/10/2025 3:03 PM EDT Narrative 01/10/2025 4:02 PM EDT [address] [address] Ultrasound Report Signed Patient: Shruti Winters MR#: [id number] : 1985 Acct:[id number] Age/Sex: 39 / F ADM Date: 01/10/25 Loc: .US Attending Dr: Kadne Jett MD Ordering Physician: Kaden Jett MD Date of Service: 01/10/25 Procedure(s): US pelvic and transvaginal Accession Number(s): [id number] cc: Lu Estrada MD; Kaden Jett MD [...] 01/10/25 1558 DD/ 1503 TD/TT: 01/10/25 1525 Floor And Wall Applier Liquid: Procedure Note Donotuseinterpreter, Image - 01/10/2025 [place] [address] Ultrasound Report Signed Patient: Ajay Winters#: [id number] : 1985Acct:[id number] Age/Sex: 39 / FADM Date: 01/10/25 Loc: HO.US Attending Dr: Kaden Jett MD Ordering Physician: Kaden Jett MD Date of Service: 01/10/25 Procedure(s): US pelvic and transvaginal Accession Number(s): [id number] cc: Lu Estrada MD; Kaden Jett MD [...] 01/10/25 1558 DD/ 1503 TD/TT: 01/10/25 1525 Floor And Wall Applier Liquid: [facility] External Provider IMG US PROCEDURES Final Result * (ABNORMAL) Lipid Panel with Reflex to Direct LDL (01/22/2024 3:20 PM EDT) Triglycerides 88 <150 mg/dL [facility] Comment:Desirable Triglyceri de: less than 150 mg/dLBorderline High Triglyceride 150-199 mg/dLHigh Triglyceride: 200-499 mg/dLVery High Triglyceride: greater than or equal to 5OO mg/dL Cholesterol 183 <200 mg/dL [facility] Comment:Desirable Cholestero l: less than 200 mg/dLBorderline High Cholesterol: 200-239 mg/dLHigh Cholesterol: greater than 239 mg/dL LDL Cholesterol Calculated 126(H) <100 mg/dL [facility] Comment:Desirable LDL: less than 100 mg/dLNear Optimal/Above Optimal LDL: 110- 129 mg/dLBorderline High LDL: 130-159 mg/dLHigh LDL: 160-189 mg/dLVery High LDL: greater than or equal to 190 mg/dL HDL Cholesterol 40(L) >40 mg/dL [facility] Comment:Desirable HDL: great er than 40 mg/dL Note: This HDL assay may give artificially low results in patients with liver disease. Blood 01/22/2024 3:20 PM EDT 01/22/2024 4:05 PM EDT us Lu Estrada MD LAB BLOOD ORDERABLES Final Resul t [facility] [address] [place] [phone] [phone] * ThinPrep Imaging Pap and HPV mRNA E6/E7 with Reflex to HPV 16,18/45 (12/05/2023 12:00 AM EDT) HPV 16 RNA SDP [facility] HPV 18/45 RNA [facility] HPV nRNA E6/E7 Not Detected Not Detected [facility] Comment:Methodology: Transcr iption-Mediated AmplificationThis assay detects E6/E7 viral messenger RNA (mRNA) from 14high-risk HPV types (16,18,31,33,35,39,45,51,52,56,58,59,66,68).Cervical sources are required for HPV testing.If a vaginal source from a patient who has had atotal hysterectomy with removal of cervix wassubmitted, please contact the testing laboratoryfor alternative testing options.For additional information, please refer tohttp://education.authorSTREAM.com/faq/BBE724v2(This link if provided for information/educational purposes only.)THIS TEST WAS PERFORMED AT:[facility] [address] [phone] MILLS MD SOURCE: SEE NOTE [facility] Comment:None given Report Status: [facility] Clinical Information: SEE NOTE [facility] Comment:None given LMP: SEE NOTE [facility] Comment:NONE GIVEN Prev. PAP: SEE NOTE [facility] Comment:NONE GIVEN Prev. BX: SEE NOTE [facility] Comment:NONE GIVEN Statement Of Adequacy: SEE NOTE [facility] Comment:Satisfactory for tahmina luation.Endocervical/transformation zone componentpresent. General Categorization: [facility] Interpretation/Result: SEE NOTE [facility] Comment:Cytology Results: Ne gative for intraepitheliallesion or malignancy. Cytology Comment SEE NOTE [facility] Comment:This Pap test has be en evaluated with computerassisted technology. Returned Item Clerk: SEE NOTE [facility] Comment:[place], CT(ASCP)CT scre ening location: [address] [address] Review Returned Item Clerk: [facility] Pathologist [facility] PAP Infection [facility] See Note SEE [facility] Comment:EXPLANATORY NOTE:The Pap is a screening test for cervical cancer. It isnot a diagnostic test and is subject to false negativeand false positive results. It is most reliable when asatisfactory sample, regularly obtained, is submittedwith relevant clinical findings and history, and whenthe Pap result is evaluated along with historic andcurrent clinical information. 12/05/2023 12/05/2023 Narrative [facility] - 12/11/2023 1:12 PM EDT SEE SCANNED RESULTS IN EMR us Generic External Data Provider LAB PATHOLOGY ORD ERABLES Final Result [facility] [address] [place] [address] [phone] * HEPATITIS C AB W/REFL TO HCV RNA, QN, PCR (03/16/2020 4:32 PM EST) HEPATITIS C ANTIBODY NON-REACT CORA NON-REACT CORA [facility] INDEX 0.02 <1.00 [facility] Comment: HCV antibody was non-reactive. There is no laboratory evidence of HCV infection. In most cases, no further action is required. However, if recent HCV exposure is suspected, a test for HCV RNA (test code 54273) is suggested. For additional information please refer to http://[employer]ox.authorSTREAM.com/faq/TXD99g3 (This link is being provided for informational/ educational purposes only.) 03/16/2020 4:32 PM EST us Lu Estrada MD HISTORICAL/NON ORDERABLE LABS Fi nal Result [facility] [address] * HIV 1/2 ANTIGEN/ANTIBODY,FOURTH GENERATION W/RFL (03/16/2020 4:32 PM EST) HIV-1/2 ANTIGEN AND ANTIBODIES, 4TH GENERATION W/ REFLEX NON-REACT CORA NON-REACT CORA [facility] Comment: HIV-1 antigen and HIV-1/HIV-2 [...] purpose. For additional information please refer to http://education.Deliv.Lumicell/faq/UWP384 (This link is being provided for informational/ educational purposes only.) The performance of this assay has not been clinically validated in patients less than 2 years old. 03/16/2020 4:32 PM EST us Lu Estrada MD LAB BLOOD ORDERABLES Final Resul t [facility] [address] from Last 3 Months or Most Recently Relevant to Health Maintenance [place] [address] [place] [address] C3 [facility] ST[facility] ADULT Care Teams Supervisor Metal Furniture Assembly Relationship Specialty Start Date End Date Lu Estrada MD [address] [place], [place] [phone] PCP - General Family Medicine 03/27/18
--- OUTSIDE RECORDS SUMMARY | 2025-03-02 23:47 | XMS_ITS | Encounter Summary ---
Author Organization [employer] Address [address] [place] [address] 7t [place] [address] Care Team Providers Care Publisher Assistant Name Role Phone Lu Estrada MD Primary Care Provider Encounter Details Date Type Department [facility] Description 10/17/2022 Abstract [facility] ADULT DENTAL [address] [place], [place] [phone] Raymon Heidi [address] [place] [address] Social History Tobacco Use Types Packs/Day Years [...] [facility] Description 07/29/2025 12:45 PM EDT Office Visit [facility] ADULT DENTAL [address] [place], [place] [phone] Heidi Ennis [address] [place] [address] documented as of this encounter Visit Diagnoses Not on filedocumented in this encounter Care Teams Publisher Assistant Relationship Specialty Start Date End Date Lu Estrada MD [address] [place] [address] PCP - General Family Medicine 03/27/18 documented as of this encounter
--- OUTSIDE RECORDS SUMMARY | 2025-03-02 23:47 | XMS_ITS | Encounter Summary ---
Author Organization [employer] Address [address] [place] [address] 7t [place] [address] Care Team Providers Care Clip On Sunglasses Assembler Name Role Phone Lu Estrada MD Primary Care Provider [phone] Reason for Visit * Reason Onset Date Comments Appointment Request 12/23/2022 Derm Encounter Details Date Type Department Care Team ([facility] Contact Info) Description 12/23/2022 Telephone [facility] MEDICINE [address] [place] [address] Lu Estrada MD [address] [place] [address] Appointment Request (Derm ) Social History Tobacco [...] Description 07/29/2025 12:45 PM EDT Office Visit [facility] ADULT DENTAL [address] [place], [place] [phone] Raymon, Heidi [address] [place] [address] documented as of this encounter Visit Diagnoses Not on filedocumented in this encounter Care Teams Clip On Sunglasses Assembler Relationship Specialty Start Date End Date Lu Estrada MD 230 [place], [place] [phone] PCP - General Family Medicine 03/27/18 documented as of this encounter
--- OUTSIDE RECORDS SUMMARY | 2025-03-02 23:47 | XMS_ITS | Encounter Summary ---
Author Organization [employer] Address [address] [facility] 7t [place] [address] Care Team Providers Care Wearing Apparel Shaker Name Role Phone Lu Estrada MD Primary Care Provider [phone] Reason for Visit * Reason Onset Date Comments Letter for School/Work 04/27/2023 Encounter Details Date Type Department Care Team ([facility] Contact Info) Description 04/27/2023 Telephone [facility] MEDICINE [address] [place] [address] Lu Estrada MD 230 [place] [address] Letter for School/Work Social History Tobacco Use [...] Description 07/29/2025 12:45 PM EDT Office Visit [facility] ADULT DENTAL [address] [place] [address] Raymon, Heidi [address] [place] [address] documented as of this encounter Visit Diagnoses Not on filedocumented in this encounter Additional Health Concerns Assessment Noted Time PHQ-9 Depression Total Score: 0 03/08/20 23 11:18 AM EST documented as of this encounter Care Teams Wearing Apparel Shaker Relationship Specialty Start Date End Date Lu Estrada MD 230 [place] [address] PCP - General Family Medicine 03/27/18 documented as of this encounter
--- OUTSIDE RECORDS SUMMARY | 2025-03-02 23:47 | XMS_ITS | Encounter Summary ---
Author Organization [employer] Address [address] [place] [address] 7 [place] [address] Care Team Providers Care Lens Grinding Machine Operator Name Role Phone Lu Estrada MD Primary Care Provider [phone] Encounter Details Date Type Department Care Team (Latest Contact Info) Description 07/08/2020 Abstract [facility] CONVERSIONS Dental, Provider, DDS Social History Tobacco [...] [facility] [address] [place] [address] Raymon, Heidi [address] [place] [address] documented as of this encounter Visit Diagnoses Not on filedocumented in this encounter Care Teams Lens Grinding Machine Operator Relationship Specialty Start Date End Date Lu Estrada MD 230 [place] [address] PCP - General Family Medicine 03/27/18 documented as of this encounter
--- OUTSIDE RECORDS SUMMARY | 2025-03-02 23:47 | XMS_ITS | Encounter Summary ---
Demographics Address [address] [facility] [address] [place] [address] Home Phone Work Phone Mobile Phone Email Address Preferred Language en Marital Status Single Christian Affiliation Unknown Race Other Race Ethnic Group Unknown Author Organization [employer] Address [address] [facility] 7t [place] [address] Care Team Providers Care Cisco Certified Network Professional Name Role Phone Lu Estrada MD Primary Care Provider [phone] Reason for Visit * Reason Comments Med Refill Encounter Details Date Type Department Care Team ([facility] st Contact Info) Description 03/09/2023 Refill [facility] [address] [place] [address] Lorri Eduardo, 230 [place] [address] Social History Tobacco Use Types Packs/Day Years [...] Office Visit [facility] ADULT DENTAL [address] [place] [address] Raymon, Heidi [address] [place] [address] documented as of this encounter Visit Diagnoses Not on filedocumented in this encounter Additional Health Concerns Assessment Noted Time PHQ-9 Depression Total Score: 0 03/08/20 23 11:18 AM EST documented as of this encounter Care Teams [employer] Certified Network Professional Relationship Specialty Start Date End Date Lu Estrada MD 230 [place] [address] PCP - General Family Medicine 03/27/18 documented as of this encounter
--- OUTSIDE RECORDS SUMMARY | 2025-03-02 23:47 | XMS_ITS | Encounter Summary ---
Author Organization [employer] Address [address] [facility] 7t [place] [address] Care Team Providers Care Digital Circuit Designer Name Role Phone Lu Estrada MD Primary Care Provider [phone] Reason for Visit * Reason Onset Date Comments Appointment 07/05/2022 Encounter Details Date Type Department Care Team ([facility] st Contact Info) Description 07/05/2022 Telephone [facility] ADULT DENTAL [address] [place] [address] Raymon, Heidi [address] [place] [address] Appointment Social History Tobacco Use Types Packs/Day [...] Description 07/29/2025 12:45 PM EDT Office Visit [facility] ADULT DENTAL [address] [place], [place] [phone] Raymon, Heidi 230 [place], [place] [phone] documented as of this encounter Visit Diagnoses Not on filedocumented in this encounter Care Teams Digital Circuit Designer Relationship Specialty Start Date End Date Lu Estrada MD 230 [place], [place] [phone] PCP - General Family Medicine 03/27/18 documented as of this encounter
--- OUTSIDE RECORDS SUMMARY | 2025-03-02 23:47 | XMS_ITS | Encounter Summary ---
Author Organization [employer] Address [address] [place] [address] 7 [place] [address] Care Team Providers Care Precision Dancer Name Role Phone Lu Estrada MD Primary Care Provider [phone] Encounter Details Date Type Department Care Team (Late Contact Info) Description 02/23/2022 Abstract [facility] ADULT DENTAL 230 [place] [address] Dental, Provider, DDS Social History Tobacco Use [...] Upcoming Encounters Date Type Department Care Team ([facility] Contact Info) Description 07/29/2025 12:45 PM EDT Office Visit [facility] ADULT DENTAL 230 [place] [address] Heidi Ennis 230 [place] [address] documented as of this encounter Procedures Procedure Name Priority Date/Time Associated Diagnosis Comments 14 O AMALGAM FILLING Routine 02/23/2022 12:00 AM EST documented in this encounter Visit Diagnoses Not on filedocumented in this encounter Care Teams Precision Dancer Relationship Specialty Start Date End Date Lu Estrada MD 230 [place] [address] PCP - General Family Medicine 03/27/18 documented as of this encounter
--- OUTSIDE RECORDS SUMMARY | 2025-03-02 23:47 | XMS_ITS | Encounter Summary ---
Demographics Address [address] [facility] [address] [place] [address] Home Phone Work Phone Mobile Phone Email Address Preferred Language en Marital Status Single Jainism Affiliation Unknown Race Other Race Ethnic Group Unknown Author Organization [employer] Address [address] [facility] [facility] [address] 7t [place] [address] Care Team Providers Care Meat Cooler Name Role Phone Lu Estrada MD Primary Care Provider [phone] Reason for Visit * Reason Comments Med Refill Encounter Details Date Type Department Care Team ([facility] Contact Info) Description 03/09/2023 Refill [facility]S [address] [place] [address] Vandana Black, ANP 230 [place] [address] Social History Tobacco Use Types Packs/Day Years [...] Description 07/29/2025 12:45 PM EDT Office Visit [facility] ADULT DENTAL 230 [place] [address] Raymon Heidi 230 [place] [address] documented as of this encounter Visit Diagnoses Not on filedocumented in this encounter Additional Health Concerns Assessment Noted Time PHQ-9 Depression Total Score: 0 03/08/20 23 11:18 AM EST documented as of this encounter Care Teams Meat Cooler Relationship Specialty Start Date End Date Lu Estrada MD 230 [place] [address] PCP - General Family Medicine 03/27/18 documented as of this encounter
--- OUTSIDE RECORDS SUMMARY | 2025-03-02 23:47 | XMS_ITS | Encounter Summary ---
Author Organization [employer] Address [address] [place] [address] 7t [place] [address] Care Team Providers Care Property Adjuster Name Role Phone Lu Estrada MD Primary Care Provider [phone] Reason for Referral * Consultation (Routine) - Closed Specialty Diagnoses / Procedures Referred By Amanda mead Referred To Contact Orthopaedic Surgery Diagnoses Ganglion cyst of wrist, right Lu Estrada MD [address] [place] [address] Phone: tel: fax: [facility] Referral ID Status Reason Start Date Expiration Date V isits Requested Visits Authorized [id number] Closed Specialty Services Required 06/25/2024 06/25/2025 12 12 Encounter Details Date Type Department Care Team (Late st Contact Info) Description 06/24/2024 Orders Only [facility] MEDICINE [address] [place] [address] [phone] uL Estrada MD [address] [place], [place] [phone] Ganglion cyst of wrist, right (Primary Dx) [...] Description 07/29/2025 12:45 PM EDT Office Visit [facility] ADULT DENTAL 230 [place] [address] Raymon, Heidi [address] [place] [address] Scheduled Referrals Name Type Priority Associated Diagnoses [...] documented as of this encounter Care Teams Property Adjuster Relationship Specialty Start Date End Date Lu Estrada MD [address] [place] [address] PCP - General Family Medicine 03/27/18 documented as of this encounter
--- OUTSIDE RECORDS SUMMARY | 2025-03-02 23:47 | XMS_ITS | Encounter Summary ---
Author Organization [employer] Address [address] [place] [address] 7t [place] [address] Care Team Providers Care Silvering Applicator Name Role Phone Lu Estrada MD Primary Care Provider Encounter Details Date Type Department Care Team ([facility] Contact Info) Description 03/18/2022 Abstract [facility] ADULT DENTAL [address] [place] [address] Viet Kellogg DDS [address] [place] [address] Social History Tobacco Use Types Packs/Day Years [...] Encounters Date Type Department Care Team ([facility] Contact Info) Description 07/29/2025 12:45 PM EDT Office Visit [facility] ADULT DENTAL [address] [place] [address] Heidi Ennis [address] [place] [address] documented as of this encounter Visit Diagnoses Not on filedocumented in this encounter Care Teams Silvering Applicator Relationship Specialty Start Date End Date Lu Estrada MD [address] [place] [address] PCP - General Family Medicine 03/27/18 documented as of this encounter
--- OUTSIDE RECORDS SUMMARY | 2025-03-02 23:47 | XMS_ITS | Encounter Summary ---
Author Organization [employer] Address [address] [place] [address] 7 [place] [address] Care Team Providers Care Net Developer With [employer] Name Role Phone Lu Estrada MD Primary Care Provider [phone] Reason for Visit * Reason Comments Med Refill Encounter Details Date Type Department Care Team (Late Contact Info) Description 06/08/2022 Refill [facility] MEDICINE [address] [place] [address] Danny Lundy MD [address] [place] [address] Social History Tobacco Use Types Packs/Day Years [...] 07/29/2025 12:45 PM EDT Office Visit [facility] ADULT DENTAL [address] [place] [address] Heidi Ennis [address] [place] [address] documented as of this encounter Visit Diagnoses Not on filedocumented in this encounter Care Teams Net Developer With [employer] Relationship Specialty Start Date End Date Lu Estrada MD [address] [place] [address] PCP - General Family Medicine 03/27/18 documented as of this encounter
--- OUTSIDE RECORDS SUMMARY | 2025-03-02 23:47 | XMS_ITS | Encounter Summary ---
Demographics Address [address] [facility] [address] [place] [address] Home Phone Work Phone Mobile Phone Email Address Preferred Language en Marital Status Single Yazdanism Affiliation Unknown Race Other Race Ethnic Group Unknown Author Organization [employer] Address [address] [address] 7t [place] [address] Care Team Providers Care Analytical Laboratory Technician Name Role Phone Lu Estrada MD Primary Care Provider [phone] Encounter Details Date Type Department Care Team ([facility] Contact Info) Description 01/27/2025 Orders Only [facility] MEDICINE [address] [place] [address] Lu Estrada MD [address] [place] [address] Moderate persistent asthma without complication; Chronic migraine [...] Description 07/29/2025 12:45 PM EDT Office Visit [facility] ADULT DENTAL [address] [place] [address] Raymon, Heidi [address] [place] [address] documented as of this encounter Visit Diagnoses Diagnosis Moderate persistent asthma without complication Chronic migraine without aura without status migrainosus, not intractable Primary hypertension Unspecified essential hypertension documented in this encounter Additional Health Concerns Assessment Noted Time PHQ-9 Depression Total Score: 5 01/22/20 24 3:06 PM EDT documented as of this encounter Care Teams Analytical Laboratory Technician Relationship Specialty Start Date End Date Lu Estrada MD [address] [place] [address] PCP - General Family Medicine 03/27/18 documented as of this encounter
--- OUTSIDE RECORDS SUMMARY | 2025-03-02 23:47 | XMS_ITS | Encounter Summary ---
Demographics Address [address] [facility] [address] [place] [address] Home Phone Work Phone Mobile Phone Email Address Preferred Language en Marital Status Single Alevism Affiliation Unknown Race Other Race Ethnic Group Unknown Author Organization [employer] Address [address] [facility] 7t [place] [address] Care Team Providers Care Dental Hygiene Instructor Name Role Phone Lu Estrada MD Primary Care Provider [phone] Encounter Details Date Type Department Care Team ([facility] st Contact Info) Description 04/30/2024 Orders [address] [facility] MEDICINE [address] [place] [address] Lu Estrada MD 230 [place], [place] [phone] Abnormal CT of the abdomen (Primary Dx); [...] PM EDT Office Visit [facility] ADULT DENTAL [address] [place] [address] Raymon, Heidi [address] [place] [address] documented as of this encounter Procedures Procedure Name Priority Date/Time Associated Diagnosis Comments BI MAMMOGRAM DIAGNOSTIC TOMOSYNTHESIS BILATERAL Routine 06/07/2024 10:00 AM EDT documented in this encounter Results * BI Mammogram Diagnostic Tomosynthesis Bilateral (06/07/2024 10:00 AM EDT) Anatomical Region Laterality Modality Breast Bilateral Mammography 06/07/2024 10:0 0 AM EDT Narrative 06/07/2024 11:42 AM EDT [facility] [address] [place] [address] Mammography Report Signed Patient: Shruti Winters MR#: [id number] : 1985 Acct:[id number] Age/Sex: 39 / F ADM Date: 06/07/24 Loc: HO.MAMMO Attending Dr: Lu Estrada MD Ordering Physician: Lu Estrada MD Results: 1Negative Date of Service: 06/07/24 Follow Up: Mammo at 42 or e arlier if clinically needed Procedure(s): MM tomosynthesis diagnostic BI Accession Number(s): [id number] cc: Lu Estrada MD EXAMINATION: MM DIAGNOSTIC [...] 06/07/24 1139 DD/ 1000 TD/TT: 06/07/24 1018 Pattern Designer: Procedure Note Donotuseinterpreter, Image - 06/07/2024 [facility] [address] [place] [address] Dr. Webber, SONNY [address] Mammography Report Signed Patient: Ajay Winters#: [id number] : 1985Acct:[id number] Age/Sex: 39 / FADM Date: 06/07/24 Loc: HO.MAMMO Attending Dr: Lu Estrada MD Ordering Physician: Lu Estrada MDResults: 1Negative Date of Service: 06/07/24Follow Up: Mammo at 42 or e arlier if clinically needed Procedure(s): MM tomosynthesis diagnostic BI Accession Number(s): [id number] cc: Lu Estrada MD EXAMINATION: MM DIAGNOSTIC [...] 06/07/24 1139 DD/ 1000 TD/TT: 06/07/24 1018 Pattern Designer: Lu Estrada MD IMG BI PROCEDURES Final [...] documented as of this encounter Care Teams Dental Hygiene Instructor Relationship Specialty Start Date End Date Lu Estrada MD [address] [place] [address] PCP - General Family Medicine 03/27/18 documented as of this encounter
--- OUTSIDE RECORDS SUMMARY | 2025-03-02 23:47 | XMS_ITS | Encounter Summary ---
Author Organization [employer] Address [address] [place] [address] 7t [place] [address] Care Team Providers Care Contract Clerk Name Role Phone Lu Estrada MD Primary Care Provider [phone] Encounter Details Date Type Department Care Team (Latest Contact Info) Description 01/01/2019 Abstract [facility] CONVERSIONS Dental, Provider, DDS Social History [...] 07/29/2025 12:45 PM EDT Office Visit [facility] ADULT DENTAL [address] [place] [address] Raymon, Heidi [address] [place] [address] documented as of this encounter Visit Diagnoses Not on filedocumented in this encounter Care Teams Contract Clerk Relationship Specialty Start Date End Date Lu Estrada MD 230 [place] [address] PCP - General Family Medicine 03/27/18 documented as of this encounter
--- OUTSIDE RECORDS SUMMARY | 2025-03-02 23:47 | XMS_ITS | Encounter Summary ---
Author Organization [employer] Address [address] [place] [address] 7t [place] [address] Care Team Providers Care Child Support Investigator Name Role Phone Lu Estrada MD Primary Care Provider [phone] Encounter Details Date Type Department Care Team ([facility] Contact Info) Description 10/17/2022 Abstract [facility] ADULT DENTAL [address] [place], [place] [phone] Raymon Heidi [address] [place] [address] Social History Tobacco Use Types Packs/Day Years [...] Care Team ([facility] Contact Info) Description 07/29/2025 12:45 PM EDT Office Visit [facility] ADULT DENTAL [address] [place], [place] [phone] Heidi Ennis [address] [place] [address] documented as of this encounter Visit Diagnoses Not on filedocumented in this encounter Care Teams Child Support Investigator Relationship Specialty Start Date End Date Lu Estrada MD [address] [place] [address] PCP - General Family Medicine 03/27/18 documented as of this encounter
[2025-03-03] MEDS: iohexoL 350 MG/ML 100 ML INFUS..BTL 85 ML IV (01:42)
[2025-03-03 01:50] VITALS: BP 137/85; PULSE 65; RESP 16; TEMP 37; O2SAT 100
[2025-03-03 05:45] VITALS: BP 126/73; PULSE 65; RESP 16; TEMP 36.8; O2SAT 100
[2025-03-03 06:09] VITALS: BP 126/73; PULSE 65; RESP 16; TEMP 36.8; O2SAT 100
== END 2025-03-03 06:10 | disposition home or self-care (01) ==
PROVIDERS: Physician Assistant; Emergency Provider Emergency Medicine
DX: N30.01 Acute cystitis with hematuria (principal); R10.12 Left upper quadrant pain; Z98.890 Other specified postprocedural states; Z87.19 Personal history of other diseases of the digestive system; Z03.818 Encounter for observation for suspected exposure to other biological agents ruled out
CPT/HCPCS: 36415; 74177; 80048; 80076; 81001; 81025; 83690; 83735; 85025; 87637; 96361; 96374; 99284; J1885; Q9967

== ENCOUNTER → 2025-03-03 01:19 | Outpatient (BNV) | payer MEDICAID, SELFPAY | PROVIDERS: Emergency Provider Emergency Medicine; Visit Provider Radiology Diagnostic Radiology | DX: R10.12 Left upper quadrant pain (principal); R31.9 Hematuria, unspecified; R10.A0 Flank pain, unspecified side | CPT/HCPCS: 74177 ==

== ENCOUNTER 2025-03-05 14:55 | Outpatient (REF) | payer MEDICAID, SELFPAY ==
[2025-03-05 23:22] LABS: CT PCR NOT DETECTED (Not Detect.); NG PCR NOT DETECTED (Not Detect.)
== END 2025-03-05 14:56 | disposition home or self-care (01) ==
LOC: HO.LNP 14:55
PROVIDERS: Visit Provider Obstetrics & Gynecology
DX: R10.22 Pelvic and perineal pain left side (principal); R31.29 Other microscopic hematuria; Z32.02 Encounter for pregnancy test, result negative; Z20.2 Contact with and (suspected) exposure to infections with a predominantly sexual mode of transmission
CPT/HCPCS: 87086; 87491; 87591

== ENCOUNTER 2025-03-05 14:55 | Outpatient (AMB) | payer MEDICAID, SELFPAY ==
[2025-03-05 15:44] VITALS: BP 128/84; TEMP 36.8; BMI 28.7
--- NOTE | 2025-03-05 15:44 | A.OFFVIS_ITS ---
Vital Signs 03/05/25 15:44 Height 5 ft 6 in Weight 178 lb BMI 28.7 BP 128/84 Temp 98.3 F Intake Visit Reasons: hematuria / fever Volunteer Manager Required: Yes Volunteer Manager Language: Staff Command And Control Officer Services: Volunteer Manager Present (in person) Volunteer Manager Name: Linnea LEON Information Interpreted: non-clinical & clinical Res Habilitation Assistant: Res Habilitation Assistant Present (Linnea LEON) Accompanied by: Self / Same As Patient Allergies No Known Allergies (No Known Allergies*) Allergy (Verified 03/05/25 15:54) HPI Comments Details: Presenting complaining of left-sided pelvic pain of the year duration, the patient went to the emergency room 3 days ago was prescribed cephalexin 500 p.o. q.i.d., no urine culture was sent and the patient does not feel that her symptoms has improved since then. 03/03 CT scan showed the following: IMPRESSION: No acute abnormality in the abdomen or pelvis Urine test was negative Urinalysis showed was positive leukocyte esterase CBC within normal 01/18 pelvic ultrasound showed the following: IMPRESSION: 1. Oval 8 mm mildly echogenic focus in the endocervical canal, uncertain etiology, questionably a polyp versus hemorrhagic products. Recommend six-week follow-up to assess for resolution or persistence. 2. Normal endometrial thickness of 9 mm. 3. Normal uterus with no evidence of fibroid. 4. Normal ovaries bilaterally 02/18 hysteroscopy D&C showed normal intrauterine cavity pathology was negative for endometrial hyperplasia and/or malignancy [facility] Medical History GERD (gastroesophageal reflux disease) Simple ovarian cyst Hypertension IBS (irritable bowel syndrome) Fibromyalgia Asthma Migraines Surgical History Hx of excision of mass Hx of colonoscopy History of esophagogastroduodenoscopy (EGD) History of loop electrical excision procedure (LEEP) Hx of tubal ligation Family History Mother Diabetes HTN (hypertension) Asthma Brother Asthma Social History Household Members: Children Are you a primary healthcare network pricing consultant to a significant other at home: No Do you presently have visiting nurse or other home services: No Alcohol intake: never Patient Tobacco Use Status: Never used Tobacco Substance Use Type: Marijuana Advance Directives Date on File: 08/29/24 Current occupational status: employed 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 Sexual orientation: Straight/Heterosexual Gender identity: Female Female Reproductive History Menstrual Age of Menarche: 15 Review of Systems Const All systems reviewed & are unremarkable except as noted in HPI and below Physical Exam Vital Signs: Last Vital Signs Temp 98.3 F 03/05/25 15:44 BP 128/84 03/05/25 15:44 BMI result Body Mass Index 28.7 General: Yes no CVA tenderness External Female Exam: normal external appearance and normal appearance of the urethra Speculum Exam - Vagina: normal appearance of the vagina, normal palpation, no lesions and no masses Speculum Exam - Cervix: normal appearance of the cervix, normal palpation, no lesions, no masses and nontender Bimanual exam- vagina & uterus: normal bimanual exam, normal palpation, uterine size normal, normal palpation, uterine shape normal, No Cervical tenderness present and non-tender Bimanual Exam- Adnexa, other: normal adnexae Back/Spine/Pelvis Back: no CVA tenderness Results AMB Urinalysis Dipstick UR Leukocytes Negative Last Edit by Linnea Howard CMA on 03/05/25 15:53 UR Nitrite Negative Last Edit by Linnea Howard, REED PRESS FEEDER on 03/05/25 15:53 UR Urobilinogen Normal Last Edit by Linnea Howard, REAGAN on 03/05/25 15:53 UR Protein 100 Last Edit by Linnea Howard, REED PRESS FEEDER on 03/05/25 15:53 UR Ph 6.0 Last Edit by Linnea Howard, REED PRESS FEEDER on 03/05/25 15:53 UR Blood Negative Last Edit by Linnea Howard, REED PRESS FEEDER on 03/05/25 15:53 UR Specific Julian 1.025 Last Edit by Linnea Howard, REAGAN on 03/05/25 15:53 UR Ketone Trace Last Edit by Linnea Howard, REED PRESS FEEDER on 03/05/25 15:53 UR Bilirubin Negative Last Edit by Linnea Howard, REAGAN on 03/05/25 15:53 UR Glucose Negative Last Edit by Linnea Howard CMA on 03/05/25 15:53 Assessment & Plan Assessment & Plan (1) Left-sided pelvic pain: Code(s): R10.22 - Pelvic and perineal pain left side Category: Medical Plan: GC/CT was negative. Urine test done in the office was negative. Discussed with the patient the results of the workup done in the emergency room in [facility] sent pelvic ultrasound Differential diagnosis of quarry worker causes that have not be ruled out yet include but not limited to endometriosis, pelvic adhesions , or others. Recommended for the patient to see her PCP for further workup for non quarry worker causes; if the all the results are negative and the patient's pelvic pain is persistent, instructions given to patient to call back for further testing. Meanwhile, instructions were given the patient to go to emergency room or call in case of fever above 100.4, heavy vaginal bleeding, persistence or worsening of her pelvic pain. All questions answered, the patient verbalized understanding. (2) Microscopic hematuria: Comment: Resolved Code(s): R31.29 - Other microscopic hematuria Category: Medical Plan: Urine dip showed microscopic hematuria, urine culture sent, the patient was instructed to continue on antibiotic and will repeat urine dip did not 2 weeks, will check urine culture and treat accordingly Orders: Orders AMB Urinalysis Dipstick Today R31.9 - Hematuria, unspecified Urine Culture Today R31.29 - Other microscopic hematuria CT NG by PCR Vag/Cerv Today R31.29 - Other microscopic hematuria Coding Level of Care Code Est Pt Level 3 (78684) Diagnoses Left-sided pelvic pain R10.22 Microscopic hematuria R31.29
--- OUTSIDE RECORDS SUMMARY | 2025-03-05 23:28 | XMS_ITS | Encounter Summary ---
Author Organization [employer] Address [address] [place] [address] 7 [place] [address] Care Team Providers Care Cytogenetic Technologist Name Role Phone Lu Estrada MD Primary Care Provider [phone] Encounter Details Date Type Department Care Team (Late st Contact Info) Description 04/19/2022 Orders Only [facility] MEDICINE [address] [place] [address] [phone] Lu Estrada MD [address] [place] [address] [phone] Social History Tobacco Use Types Packs/Day Years [...] Care Team (Late st Contact Info) Description 03/10/2025 1:00 PM EST Office Visit [facility] MEDICINE [address] [place] [address] [phone] Vandana Black ANP [address] [place], [place] [phone] 07/29/2025 12:45 PM EDT Office Visit [facility] [address] [place] [address] Heidi Ennis 230 [place], [place] [phone] documented as of this encounter Visit Diagnoses Not on filedocumented in this encounter Care Teams Cytogenetic Technologist Relationship Specialty Start Date End Date Lu Estrada MD [address] [place] [address] PCP - General Family Medicine 03/27/18 documented as of this encounter
--- OUTSIDE RECORDS SUMMARY | 2025-03-05 23:28 | XMS_ITS | Encounter Summary ---
Author Organization [employer] Address [address] [facility] 7t [place] [address] Care Team Providers Care Technical Support Analyst Name Role Phone Lu Estrada MD Primary Care Provider [phone] Reason for Visit * Reason Comments Med Refill Encounter Details Date Type Department Care Team ([facility] st Contact Info) Description 05/01/2023 Refill [facility] MEDICINE [address] [place] [address] Lorri Eduardo, [address] [place] [address] Social History Tobacco Use Types Packs/Day Years [...] Description 03/10/2025 1:00 PM EST Office Visit [facility] MEDICINE [address] [place] [address] Vandana Black ANP [address] [place] [address] 07/29/2025 12:45 PM EDT Office Visit [facility] ADULT DENTAL 230 [place] [address] Heidi Ennis [address] [place] [address] documented as of this encounter Visit Diagnoses Not on filedocumented in this encounter Additional Health Concerns Assessment Noted Time PHQ-9 Depression Total Score: 0 03/08/20 23 11:18 AM EST documented as of this encounter Care Teams Technical Support Analyst Relationship Specialty Start Date End Date Lu Estrada MD [address] [place] [address] PCP - General Family Medicine 03/27/18 documented as of this encounter
--- OUTSIDE RECORDS SUMMARY | 2025-03-05 23:28 | XMS_ITS | Encounter Summary ---
Author Organization [employer] Address [address] [place] [address] 7 [place] [address] Care Team Providers Care Coat Fitter Name Role Phone Lu Estrada MD Primary Care Provider [phone] Encounter Details Date Type Department Care Team (Latest Contact Info) Description 01/01/2019 Abstract [facility] CONVERSIONS Dental, Provider, DDS Social [...] Upcoming Encounters Date Type Department Care Team ( Contact Info) Description 03/10/2025 1:00 PM EST Office Visit [facility] MEDICINE [address] [place] [address] Vandana Black ANP [address] [place] [address] 07/29/2025 12:45 PM EDT Office Visit [facility] ADULT DENTAL [address] [place] [address] Mc Ennisaris [address] [place] [address] documented as of this encounter Visit Diagnoses Not on filedocumented in this encounter Care Teams Coat Fitter Relationship Specialty Start Date End Date Lu Estrada MD [address] [place] [address] PCP - General Family Medicine 03/27/18 documented as of this encounter
--- OUTSIDE RECORDS SUMMARY | 2025-03-05 23:28 | XMS_ITS | Encounter Summary ---
Author Organization [employer] Address [address] [facility] 7t [place] [address] Care Team Providers Care Head Of History Name Role Phone Lu Estrada MD Primary Care Provider Reason for Visit * Reason Comments Med Refill Encounter Details Date Type Department Care Team ([facility] Contact Info) Description 03/09/2023 Refill [facility] MEDICINE 230 [place] [address] Lu Estrada MD 230 [place] [address] Social History Tobacco Use Types Packs/Day Years [...] Description 03/10/2025 1:00 PM EST Office Visit [facility] MEDICINE [address] [place] [address] Vandana Black ANP [address] [place] [address] 07/29/2025 12:45 PM EDT Office Visit [facility] ADULT DENTAL [address] [place] [address] Mc Ennisaris [address] [place] [address] documented as of this encounter Visit Diagnoses Not on filedocumented in this encounter Additional Health Concerns Assessment Noted Time PHQ-9 Depression Total Score: 0 03/08/20 23 11:18 AM EST documented as of this encounter Care Teams Head Of History Relationship Specialty Start Date End Date Lu Estrada MD [address] [place] [address] PCP - General Family Medicine 03/27/18 documented as of this encounter
--- OUTSIDE RECORDS SUMMARY | 2025-03-05 23:28 | XMS_ITS | Encounter Summary ---
Author Organization [employer] Address [address] [place] [address] 7t [place] [address] Care Team Providers Care Sugar House Supervisor Name Role Phone Lu Estrada MD Primary Care Provider [phone] Encounter Details Date Type Department Care Team ([facility] Contact Info) Description 10/17/2022 Abstract [facility] D[facility] 230 [place], [place] [phone] Heidi Ennis [address] [place] [address] Social History Tobacco Use Types Packs/Day Years [...] Upcoming Encounters Date Type Department Care Team ([facility] Contact Info) Description 03/10/2025 1:00 PM EST Office Visit [facility] 230 [place], [place] [phone] Vandana Black ANP [address] [place] [address] 07/29/2025 12:45 PM EDT Office Visit [facility] [address] [place], [place] [phone] Mc Ennisaris [address] [place] [address] documented as of this encounter Visit Diagnoses Not on filedocumented in this encounter Care Teams Sugar House Supervisor Relationship Specialty Start Date End Date Lu Estrada MD [address] [place] [address] PCP - General Family Medicine 03/27/18 documented as of this encounter
--- OUTSIDE RECORDS SUMMARY | 2025-03-05 23:28 | XMS_ITS | Encounter Summary ---
Demographics Address [address] [facility] [address] [place] [address] Home Phone Work Phone Mobile Phone Email Address Preferred Language en Marital Status Single Zoroastrianism Affiliation Unknown Race Other Race Ethnic Group Unknown Author Organization [employer] Address [address] 7t [place] [address] Care Team Providers Care Senior Piping Designer Name Role Phone Lu Estrada MD Primary Care Provider [phone] Encounter Details Date Type Department Care Team ([facility] st Contact Info) Description 04/30/2024 Orders Only [facility] MED[facility]INE [address] [place] [address] Lu Estrada MD 230 [place], [place] [phone] Abnormal CT of the abdomen (Primary Dx); [...] 1:00 PM EST Office Visit [facility] MED[facility]INE [address] [place] [address] Vandana Black ANP [address] [place] [address] 07/29/2025 12:45 PM EDT Office Visit [facility] ADULT DENTAL [address] [place] [address] Heidi Ennis [address] [place] [address] documented as of this encounter Procedures Procedure Name Priority Date/Time Associated Diagnosis Comments BI MAMMOGRAM DIAGNOSTIC TOMOSYNTHESIS BILATERAL Routine 06/07/2024 10:00 AM EDT documented in this encounter Results * BI Mammogram Diagnostic Tomosynthesis Bilateral (06/07/2024 10:00 AM EDT) Anatomical Region Laterality Modality Breast Bilateral Mammography 06/07/2024 10:0 0 AM EDT Narrative 06/07/2024 11:42 AM EDT [facility] [address] [place] [address] Mammography Report Signed Patient: Shruti Winters MR#: [id number] : 1985 Acct:[id number] Age/Sex: 39 / F ADM Date: 06/07/24 Loc: HO.MAMMO Attending Dr: Lu Estrada MD Ordering Physician: Lu Estrada MD Results: 1Negative Date of Service: 06/07/24 Follow Up: Mammo at 42 or e arlier if clinically needed Procedure(s): MM tomosynthesis diagnostic BI Accession Number(s): [id number] cc: Lu Estrada MD EXAMINATION: MM DIAGNOSTIC [...] 06/07/24 1139 DD/ 1000 TD/TT: 06/07/24 1018 Zoning Administrator: Procedure Note Donotuseinterpreter, Image - 06/07/2024 [facility] [address] [place] [address] Mammography Report Signed Patient: Ajay Winters#: [id number] : 1985Acct:[id number] Age/Sex: 39 / FADM Date: 06/07/24 Loc: HO.MAMMO Attending Dr: Lu Estrada MD Ordering Physician: Lu Estrada MDResults: 1Negative Date of Service: 06/07/24Follow Up: Mammo at 42 or e arlier if clinically needed Procedure(s): MM tomosynthesis diagnostic BI Accession Number(s): [id number] cc: Lu Estrada MD EXAMINATION: MM DIAGNOSTIC [...] 06/07/24 1139 DD/ 1000 TD/TT: 06/07/24 1018 Zoning Administrator: Lu Estrada MD IMG BI PROCEDURES Final [...] as of this encounter Care Teams Senior Piping Designer Relationship Specialty Start Date End Date Lu Estrada MD [address] [place] [address] PCP - General Family Medicine 03/27/18 documented as of this encounter
--- OUTSIDE RECORDS SUMMARY | 2025-03-05 23:28 | XMS_ITS | Encounter Summary ---
Author Organization [employer] Address [address] [place] [address] 7 [place] [address] Care Team Providers Care Clinical Nursing Assistant Name Role Phone Lu Estrada MD Primary Care Provider [phone] Reason for Visit * Reason Comments Med Refill Encounter Details Date Type Department Care Team (Late Contact Info) Description 06/08/2022 Refill [facility] MEDICINE [address] [place] [address] Danny Lundy MD [address] [place] [address] [phone] Social History Tobacco Use Types Packs/Day Years [...] Department Care Team (Late Contact Info) Description 03/10/2025 1:00 PM EST Office Visit [facility] MEDICINE [address] [place] [address] [phone] Vandana Black ANP 230 [place], [place] [phone] 07/29/2025 12:45 PM EDT Office Visit [facility] ADULT DENTAL [address] [place] [address] Heidi Ennis 230 [place], [place] [phone] documented as of this encounter Visit Diagnoses Not on filedocumented in this encounter Care Teams Clinical Nursing Assistant Relationship Specialty Start Date End Date Lu Estrada MD [address] [place] [address] PCP - General Family Medicine 03/27/18 documented as of this encounter
--- OUTSIDE RECORDS SUMMARY | 2025-03-05 23:28 | XMS_ITS | Encounter Summary ---
Author Organization [employer] Address [address] [facility] [address]t [place] [address] Care Team Providers Care Superintendent Drilling And Production Name Role Phone Lu Estrada MD Primary Care Provider [phone] Encounter Details Date Type Department Care Team ([facility] Contact Info) Description 05/29/2023 Abstract [facility] MEDICINE 230 [place], [place] [phone] Lu Estrada MD 230 [place], [place] [phone] Social History Tobacco Use Types Packs/Day Years [...] Description 03/10/2025 1:00 PM EST Office Visit [facility] MEDICINE [address] [place] [address] Vandana Black ANP [address] [place] [address] 07/29/2025 12:45 PM EDT Office Visit [facility] ADULT DENTAL [address] [place] [address] Heidi Ennis [address] [place] [address] documented as of this encounter Procedures Procedure [...] as of this encounter Care Teams Superintendent Drilling And Production Relationship Specialty Start Date End Date Lu Estrada MD [address] [place] [address] PCP - General Family Medicine 03/27/18 documented as of this encounter
--- OUTSIDE RECORDS SUMMARY | 2025-03-05 23:28 | XMS_ITS | Encounter Summary ---
Author Organization [employer] Address [address] [facility] 7t [place] [address] Care Team Providers Care Damper Maker Name Role Phone Lu Estrada MD Primary Care Provider [phone] Reason for Visit * Reason Onset Date Comments ER Follow-up 03/03/2025 Encounter Details Date Type Department Care Team ([facility] st Contact Info) Description 03/03/2025 Telephone [facility] MEDICINE 230 [place] [address] Lu Estrada MD [address] [place] [address] ER Follow-up Social History Tobacco Use Types Packs/Day Years [...] encounter Miscellaneous Notes * Telephone Encounter - Miriam Garcia RN - 03/03/2025 4:02 PM EST Telephone call returned to pt regarding below message. Pt reports that she had a polyp removed fromher uterus 02/14/25. Has been well since then. Had a follow up with Dr Jett 02/27/25 and had urinalysis done then which was negative for everything. Day after that (02/28/25) she started having upper left-sided abdominal pain. She reports that by yesterday 03/02/25, she couldn't take it and so she went to the hospital. Was seen in the ED and had imaging done which was reassuring. Only abnormal result was urinalysis which showed hematuria and trace leukocytes. She states that they told her that she has a UTI and gave her antibiotics but she is skeptical. She reports that she also has history of h ematuria and that almost every time her urine is tested there is blood. She is still having abdominal pain chills, and night sweats and ER doctors told her to request urology referral for ongoing hematuria. Pt denies fever, nausea, vomiting, diarrhea, changes in voiding, or any other symptoms. Offered WIC tonight or tomorrow. Pt would like to be booked on Monday. Booked for Monday 03/05 with Jayce. * Telephone Encounter - Stefanie Talley - 03/03/2025 2:52 PM EST Seen for: Abdominal pain Symptomatic Yes * Telephone Encounter - Willow Campa - 03/03/2025 9:00 AM EST Patient calling to report ED visit on : Date: 03/02 Hospital: [facility] Seen for: did not want to sya what was seen for Symptomatic not sure *if yes message should go to Triage Patient advised will forward to team nurse for follow up Contact pt at [phone] (israeli) documented in this encounter Plan of Treatment Upcoming Encounters Date Type Department Care Team (Late st Contact Info) Description 03/10/2025 1:00 PM EST Office Visit [facility] MEDICINE [address] [place] [address] Vandana Black ANP [address] [place] [address] 07/29/2025 12:45 PM EDT Office Visit [facility] ADULT DENTAL [address] [place] [address] Heidi Ennis [address] [place] [address] documented as of this encounter Visit Diagnoses Not on filedocumented in this encounter Additional Health Concerns Assessment Noted Time PHQ-9 Depression Total Score: 5 01/22/20 24 3:06 PM EDT documented as of this encounter Care Teams Damper Maker Relationship Specialty Start Date End Date Lu Estrada MD [address] [place] [address] PCP - General Family Medicine 03/27/18 documented as of this encounter
--- OUTSIDE RECORDS SUMMARY | 2025-03-05 23:28 | XMS_ITS | Encounter Summary ---
Author Organization [employer] Address [address] [place] [address] 7t [place] [address] Care Team Providers Care Light Industrial Supervisor Name Role Phone Lu Estrada MD Primary Care Provider [phone] Reason for Referral * Consultation (Routine) - Closed Specialty Diagnoses / Procedures Referred By Amanda mead Referred To Contact Orthopaedic Surgery Diagnoses Ganglion cyst of wrist, right Lu Estrada MD [address] [place] [address] Phone: tel: fax: [facility] Referral ID Status Reason Start Date Expiration Date V isits Requested Visits Authorized [id number] Closed Specialty Services Required 06/25/2024 06/25/2025 12 12 Encounter Details Date Type Department Care Team (Late st Contact Info) Description 06/24/2024 Orders Only [facility] MEDICINE [address] [place] [address] [phone] Lu Estrada MD [address] [place], [place] [phone] Ganglion cyst of wrist, right (Primary Dx) [...] is your housing situation today? I have acssy trevino 03/08/[address] you [...] Description 03/10/2025 1:00 PM EST Office Visit [facility] MEDICINE [address] [place] [address] Vandana Black ANP [address] [place] [address] 07/29/2025 12:45 PM EDT Office Visit [facility] [address] [place] [address] Heidi Ennis [address] [place] [address] Scheduled Referrals Name Type Priority Associated Diagnoses [...] documented as of this encounter Care Teams Light Industrial Supervisor Relationship Specialty Start Date End Date Lu Estrada MD [address] [place] [address] PCP - General Family Medicine 03/27/18 documented as of this encounter
--- OUTSIDE RECORDS SUMMARY | 2025-03-05 23:28 | XMS_ITS | Encounter Summary ---
Author Organization [employer] Address [address] [place] [address] 7 [place] [address] Care Team Providers Care Photographic Lithographer Name Role Phone Lu Estrada MD Primary Care Provider [phone] Encounter Details Date Type Department Care Team (Late st Contact Info) Description 04/04/2022 Abstract [facility] ADULT DENTAL [address] [place] [address] Viet Kellogg DDS [address] [place] [address] Social History Tobacco Use Types Packs/Day Years [...] Description 03/10/2025 1:00 PM EST Office Visit [facility] MEDICINE [address] [place], [place] [phone] Vandana Black ANP [address] [place] [address] 07/29/2025 12:45 PM EDT Office Visit [facility] ADULT DENTAL [address] [place] [address] Raymon, Heidi [address] [place] [address] documented as of this encounter Visit Diagnoses Not on filedocumented in this encounter Care Teams Photographic Lithographer Relationship Specialty Start Date End Date Lu Estrada MD [address] [place] [address] PCP - General Family Medicine 03/27/18 documented as of this encounter
--- OUTSIDE RECORDS SUMMARY | 2025-03-05 23:28 | XMS_ITS | Encounter Summary ---
Author Organization [employer] Address [address] [place] [address] 7 [place] [address] Care Team Providers Care Screw Machine Operator Single Spindle Name Role Phone Lu Estrada MD Primary Care Provider [phone] Encounter Details Date Type Department Care Team (Late st Contact Info) Description 02/23/2022 Abstract [facility] [address] [place] [address] Dental, Provider, DDS Social History Tobacco Use [...] Description 03/10/2025 1:00 PM EST Office Visit [facility] [address] [place] [address] Vandana Black ANP [address] [place] [address] 07/29/2025 12:45 PM EDT Office Visit [facility] [address] [place] [address] Heidi Ennis [address] [place] [address] documented as of this encounter Procedures Procedure Name Priority Date/Time Associated Diagnosis Comments 14 O AMALGAM FILLING Routine 02/23/2022 12:00 AM EST documented in this encounter Visit Diagnoses Not on filedocumented in this encounter Care Teams Screw Machine Operator Single Spindle Relationship Specialty Start Date End Date Lu Estrada MD [address] [place] [address] PCP - General Family Medicine 03/27/18 documented as of this encounter
--- OUTSIDE RECORDS SUMMARY | 2025-03-05 23:28 | XMS_ITS | Encounter Summary ---
Author Organization [employer] Address [address] [place] [address] 7t [place] [address] Care Team Providers Care Entry Level Management Name Role Phone Lu Estrada MD Primary Care Provider [phone] Encounter Details Date Type Department Care Team ([facility] Contact Info) Description 10/17/2022 Abstract [facility] [address] [place], [place] [phone] Heidi Ennis [address] [place] [address] Social History Tobacco Use Types Packs/Day Years [...] Upcoming Encounters Date Type Department Care Team ([facility] Contact Info) Description 03/10/2025 1:00 PM EST Office Visit [facility] [address] [place], [place] [phone] Vandana Black ANP [address] [place] [address] 07/29/2025 12:45 PM EDT Office Visit [facility] [address] [place], [place] [phone] Mc Ennisaris [address] [place] [address] documented as of this encounter Visit Diagnoses Not on filedocumented in this encounter Care Teams Entry Level Management Relationship Specialty Start Date End Date Lu Estrada MD [address] [place] [address] PCP - General Family Medicine 03/27/18 documented as of this encounter
--- OUTSIDE RECORDS SUMMARY | 2025-03-05 23:28 | XMS_ITS | Encounter Summary ---
Author Organization [employer] Address [address] [facility] 7t [place] [address] Care Team Providers Care Relief Manager Name Role Phone Lu Estrada MD Primary Care Provider [phone] Reason for Visit * Reason Onset Date Comments No Show 03/05/2025 Encounter Details Date Type Department Care Team ([facility] Contact Info) Description 03/05/2025 Telephone [facility] [address] [place] [address] Lorri Eduardo DO [address] [place] [address] No Show Social History Tobacco Use Types Packs/Day Years [...] the past 12 months, has t he [employer] gas, oil or water company threatened to [...] encounter Miscellaneous Notes * Telephone Encounter - Tia Spencer RN - 03/05/2025 2:15 PM EST TC placed to patient [phone] regarding below message. This RN rescheduled an appointment with the patient for 03/10/25 for a ED F/U. Patient agreed to the appointment. PT to F/U PRN. * Telephone Encounter - Kavya Weiner - 03/05/2025 11:53 AM EST Pt no showed to appointment on 03/05/25 sick onsite. documented in this encounter Plan of Treatment Upcoming Encounters Date Type Department Care Team (Late st Contact Info) Description 03/10/2025 1:00 PM EST Office Visit [facility] [address] [place] [address] Vandana Black ANP [address] [place] [address] 07/29/2025 12:45 PM EDT Office Visit [facility] [address] [place] [address] Mc Ennisaris [address] [place] [address] documented as of this encounter Visit Diagnoses Not on filedocumented in this encounter Additional Health Concerns Assessment Noted Time PHQ-9 Depression Total Score: 5 01/22/20 24 3:06 PM EDT documented as of this encounter Care Teams Relief Manager Relationship Specialty Start Date End Date Lu Estrada MD [address] [place] [address] PCP - General Family Medicine 03/27/18 documented as of this encounter
--- OUTSIDE RECORDS SUMMARY | 2025-03-05 23:28 | XMS_ITS | Encounter Summary ---
Demographics Address [address] [place] [address] Home Phone Work Phone Mobile Phone Email Address Preferred Language en Marital Status Single Judaism Affiliation Unknown Race Other Race Ethnic Group Unknown Author Organization [employer] Address [address] [place] [address] Care Team Providers Care Bobbin Washer Name Role Phone Lu Estrada MD Primary Care Provider [phone] Reason for Visit * Reason Comments Med Refill Encounter Details Date Type Department Care Team ([facility] Contact Info) Description 03/09/2023 Refill [facility] [address] [place] [address] Vandana Black, ANP [address] [place] [address] Social History Tobacco Use Types Packs/Day Years [...] Description 03/10/2025 1:00 PM EST Office Visit [facility] [address] [place] [address] Vandana Black ANP [address] [place] [address] 07/29/2025 12:45 PM EDT Office Visit [facility] [address] [place] [address] Mc Ennisaris [address] [place] [address] documented as of this encounter Visit Diagnoses Not on filedocumented in this encounter Additional Health Concerns Assessment Noted Time PHQ-9 Depression Total Score: 0 03/08/20 23 11:18 AM EST documented as of this encounter Care Teams Bobbin Washer Relationship Specialty Start Date End Date Lu Estrada MD [address] [place] [address] PCP - General Family Medicine 03/27/18 documented as of this encounter
--- OUTSIDE RECORDS SUMMARY | 2025-03-05 23:28 | XMS_ITS | Encounter Summary ---
Demographics Address [address] [place] [address] Home Phone Work Phone Mobile Phone Email Address Preferred Language en Marital Status Single Mu-Ism Affiliation Unknown Race Other Race Ethnic Group Unknown Author Organization [employer] Address [address] [place] [address] Care Team Providers Care Real Estate Developer Name Role Phone Lu Estrada MD Primary Care Provider [phone] Encounter Details Date Type Department Care Team ([facility] Contact Info) Description 01/27/2025 Orders Only [facility] [address] [place] [address] Lu Estrada MD [address] [place] [address] Moderate persistent asthma without complication; Chronic migraine [...] Description 03/10/2025 1:00 PM EST Office Visit [facility] [address] [place] [address] Vandana Black ANP [address] [place] [address] 07/29/2025 12:45 PM EDT Office Visit [facility] [address] [place] [address] Raymon, Heidi [address] [place] [address] documented as of this encounter Visit Diagnoses Diagnosis Moderate persistent asthma without complication Chronic migraine without aura without status migrainosus, not intractable Primary hypertension Unspecified essential hypertension documented in this encounter Additional Health Concerns Assessment Noted Time PHQ-9 Depression Total Score: 5 01/22/20 24 3:06 PM EDT documented as of this encounter Care Teams Real Estate Developer Relationship Specialty Start Date End Date Lu Estrada MD [address] [place] [address] PCP - General Family Medicine 03/27/18 documented as of this encounter
--- OUTSIDE RECORDS SUMMARY | 2025-03-05 23:28 | XMS_ITS | Encounter Summary ---
Author Organization [employer] Address [address] [facility] 7t [place] [address] Care Team Providers Care Horticultural Specialty Grower Name Role Phone Lu Estrada MD Primary Care Provider Reason for Visit * Reason Comments Med Refill Encounter Details Date Type Department Care Team ([facility] st Contact Info) Description 03/09/2023 Refill [facility] [address] [place] [address] Lorri Eduardo, [address] [place] [address] Social History Tobacco Use Types Packs/Day Years [...] Description 03/10/2025 1:00 PM EST Office Visit [facility] [address] [place] [address] Vandana Black ANP [address] [place] [address] 07/29/2025 12:45 PM EDT Office Visit [facility] [address] [place] [address] Heidi Ennis [address] [place] [address] documented as of this encounter Visit Diagnoses Not on filedocumented in this encounter Additional Health Concerns Assessment Noted Time PHQ-9 Depression Total Score: 0 03/08/20 23 11:18 AM EST documented as of this encounter Care Teams Horticultural Specialty Grower Relationship Specialty Start Date End Date Lu Estrada MD [address] [place] [address] PCP - General Family Medicine 03/27/18 documented as of this encounter
--- OUTSIDE RECORDS SUMMARY | 2025-03-05 23:28 | XMS_ITS | Encounter Summary ---
Author Organization [employer] Address [address] [facility] [address]t [place] [address] Care Team Providers Care Mate Fourth Name Role Phone Lu Estrada MD Primary Care Provider [phone] Reason for Visit * Reason Onset Date Comments Appointment 07/05/2022 Encounter Details Date Type Department Care Team ([facility] st Contact Info) Description 07/05/2022 Telephone [facility] [address] [place] [address] Raymon, Heidi [address] [place] [address] Appointment Social History Tobacco Use Types Packs/Day [...] appt. It is not currently requested in [facility] and I dont know if to request or not sure if the [employer] list is blended with Epic list. documented in this encounter Plan of Treatment Upcoming Encounters Date Type Department Care Team (Late st Contact Info) Description 03/10/2025 1:00 PM EST Office Visit [facility] [address] [place] [address] Vandana Black ANP [address] [place] [address] 07/29/2025 12:45 PM EDT Office Visit [facility] [address] [place] [address] Heidi Ennis [address] [place] [address] documented as of this encounter Visit Diagnoses Not on filedocumented in this encounter Care Teams Mate Fourth Relationship Specialty Start Date End Date Lu Estrada MD [address] [place], [place] [phone] PCP - General Family Medicine 03/27/18 documented as of this encounter
--- OUTSIDE RECORDS SUMMARY | 2025-03-05 23:28 | XMS_ITS | Clinical Summary ---
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; advised to contact her surgeon or PIECE PRESSER Atypical chest pain 07/13/2022 Enlarged tonsils 07/13/2022 [...] Plan (04/25/2022 4:36 PM EST): -followed by [facility] GI continue famotidine -continue pantoprazole -avoid NSAIDS IBS (irritable bowel syndrome) 04/21/2022 Assessment & Plan (01/28/2024 4:45 PM EST): - followed by [facility] GI last seen in May 2023 - s/p EGD and colonoscopy -GI prescribed dicyclomine, simethicone, and Creon, but she is not taking it; recommended to discuss with GI specialist before discontinuing it -work on stress reduction Assessment & Plan (05/05/2023 6:42 AM EST): - followed by [facility] GI last seen in Nov 2022 - [...] (04/29/2022 6:27 PM EST): - followed by [facility] GI last seen on 03/24/22 -continue dicyclomine [...] 4:48 PM EST): - previously seen by [facility] Clinician. - patient is not interested in behavioral health service -Pt was recommended to improve sleepy hygien and exercise during the day instead of taking medications Assessment & Plan (04/25/2022 4:35 PM EST): Was seen by [facility] Clinician. -Will check status of f/u. -Pt was recommended to improve sleepy hygien and exercise during the day instead of taking medications Dislocation of acromioclavicular joint 7 Migraine 05/04/2016 Assessment & Plan (04/28/2024 4:12 PM EST): -seen by [facility] neurologist in Apr 2019 -[facility] Plan (01/28/2024 4:50 PM EST): -seen by [facility] neurologist in Apr 2019 -[facility] by [facility] [...] Plan (05/05/2023 6:51 AM EST): -seen by [facility] neurologist in Apr 2019 -[facility] by [facility] [...] Encounters Date Type Department Care Team Description 03/05/2025 Orders Only GENERIC EXTERNAL DATA DEPARTMENT Provider, Generic External Data 03/05/[address] [address] Lorri Eduardo, No Show 03/03/[address] [address] Lu Estrada MD ER Follow-up 02/18/[address] [address] Lu Estrada MD No Show 02/17/[address] [address] Lu Estrada MD chartprep 02/14/2025 Orders Only GENERIC EXTERNAL DATA DEPARTMENT Provider, Generic External Data 02/10/2025 Patient Outreach [address] [address] Lu Estrada MD Pre-visit Planning (SDOH screening was completed on 12/18/2024) 01/27/2025 12:45 PM EST Office Visit [facility] [address] [place] [phone] RaymonHeidi Dental calculus (Primary Dx); Dental plaque 01/27/2025 Orders Only [address] [address] Lu Estrada MD Moderate persistent asthma without complication; Chronic migraine without aura without status migrainosus, not intractable; Primary hypertension 01/24/[address] [address] Lu Estrada MD Med Refill 01/17/2025 Results Follow-Up [facility] [address] [place] [address] [phone] Joseph Mix MD TSH W/Reflex to FT4, CBC auto differential, Basic Metabolic Panel 01/10/2025 Orders Only [facility] External Provider, [facility] 12/24/2024 Telephone [facility] [address] [place] [address] Lu Estrada MD chart prep 12/23/2024 7:00 PM EDT Office Visit [facility] [address] [place] [address] Joseph Mix MD Chills (Primary Dx); History of hypokalemia 12/23/2024 Travel 12/18/2024 Patient Outreach [facility] [address] [place] [address] Lu Estrada MD Pre-visit Planning (SDOH screening positive and Tobacco screening negative) 12/05/2024 9:15 AM EDT Office Visit [facility] [address] [place] [address] Aziza Mckoy, OD Hypermetropia, bilateral (Primary Dx) 12/05/2024 Travel from [...] Description 03/10/2025 1:00 PM EST Office Visit [facility] [address] [place] [address] Vandana Black ANP [address] [place] [address] 07/29/2025 12:45 PM EDT Office Visit [facility] [address] [place] [address] Heidi Ennis [address] [place] [address] Health Maintenance Due Date Last Done Comments Disability Screening 1985 Alcohol/Substance Use Screening 1999 Family Planning (PISQ) 2002 HPV Vaccines (1 - 3-dose series) 2002 COVID-19 Vaccine ( season) 2024 01/22/2024, 04/26/2023, 05/25/2021, Additional history exists Influenza Vaccine (#1) 2024 , 03/08/2023, 04/25/2022, Additional history exists Depression Screening 01/21/2025 01/22/2024, 01/22/20 Dental X-Ray: Full Mouth 03/03/2025 03/02/2022 Dental Oral Exam 07/28/2025 01/27/2025, , 03/02/2022 Dental Prophylaxis 07/28/2025 01/27/2025, 1 2023, 09/08/2023, Additional history exists SDOH Screening 12/18/2025 12/18/2024 Tobacco Screening 01/27/2026 01/27/2025 Dental X-Ray: Bitewings 01/28/2026 01/28/20, 09/08/2023, 03/02/2022 Pap Smear 12/04/2026 12/05/2023, 10/25/2022 [...] this topic Meningococcal Vaccine Aged Out No jabire zulma eligible based on patient's age to complete this topic RSV under 20 months Aged Out No longe r eligible based on patient's age to complete this topic Rotavirus Vaccines Aged Out No longer eligible based on patient's age to complete this topic Procedures Procedure Name Priority Date/Time Associated Diagnosis Comments CHLAMYDIA/N. GONORRHOEAE RNA, TMA, UROGENITAL Routine 03/05/2025 2:[address] ABDOMEN PELVIS W CONTRAST Routine 03/03/2025 3:03 AM EST HEMATOXYLIN AND EOSIN STAIN Routine 02/14/2025 12:46 [...] Results * Chlamydia/N. Gonorrhoeae RNA, TMA, Urogenitial (03/05/2025 2:55 PM EST) CT PCR NOT DETECTED Not Detect. [facility] Comment:A not detected test result [...] psychologicalconsequences. NG PCR NOT DETECTED Not Detect. [facility] Comment:A not detected test result [...] lead to adverse medical, social or psychologicalconsequences. 03/05/2025 2:55 PM EST 03/05/2025 5:19 PM EST us Generic External Data Provider LAB MICROBIOLOGY - GENERAL ORDERABLES Final Result Performing Organization Address City/State/[facility] Co de Phone Number [facility] [address] [place] [phone] * CT Abdomen Pelvis w/ Contrast (03/03/2025 3:03 AM EST) Anatomical Region Laterality Modality Body, Pelvis, Abdomen Computed T omography 03/03/2025 3:03 AM EST Narrative 03/03/2025 3:05 AM EST [address] [address] [address] Scan Report Signed Patient: Shruti Winters MR#: [id number] : 1985 Acct:[id number] Age/Sex: 39 / F ADM Date: 03/02/25 Loc: .ED Attending Dr: Ordering Physician: Agusítn Solorio PA-C Date of Service: 03/03/25 Procedure(s): CT abdomen pelvis w IV con Accession Number(s): [id number] cc: [facility]; Agustín Solorio PA-C Report Number: [id number]: Total DLP = 617.00 mGy-cm Reason for Exam: LUQ Flank Pain; Hematuria CLINICAL HISTORY: LUQ Flank Pain; Hematuria CT abdomen and pelvis with contrast Comparison: CT/REG/SR - CT ABDOMEN PELVIS WO IV CON - 11/25/24 03:17 EDT Findings: The lung bases are clear. The liver, gallbladder, pancreas, spleen, adrenal glands, and kidneys are unremarkable. There is no urolithiasis or hydronephrosis. There is no pyelonephritis. The appendix is normal. The remainder of the gastrointestinal tract is unremarkable. There are no enlarged lymph nodes. The aorta and IVC are normal. The uterus and adnexa are unremarkable. The bladder is decompressed. There is no fracture or suspicious lytic or sclerotic lesion. IMPRESSION: No acute abnormality in the abdomen or pelvis. This document has been electronically signed by: Keaton Gaxiola MD on 03/03/2025 03:03:40 Dictated By: Keaton Gaxiola MD Signed By: <Electronically signed by Keaton Gaxiola MD in OV> 03/03/25304 DD/ 2 TD/TT: 03/03/25302 Branch Office Administrator: Procedure Note Donotuseinterpreter, Image - 03/03/[address] [place] [address] [address] Scan Report Signed Patient: Ajay Winters#: [id number] : 1985Acct:[id number] Age/Sex: 39 / FADM Date: 03/02/25 Loc: HO.ED Attending Dr: Ordering Physician: Agustín Solorio PA-C Date of Service: 03/03/25 Procedure(s): CT abdomen pelvis w IV con Accession Number(s): [id number] cc: [facility]; Agustín Solorio PA-C Report Number: [id number]: Total DLP = 617.00 mGy-cm Reason for Exam: LUQ Flank Pain; Hematuria CLINICAL HISTORY: LUQ Flank Pain; Hematuria CT abdomen and pelvis with contrast Comparison: CT/REG/SR - CT ABDOMEN PELVIS WO IV CON - 11/25/24 03:17 EDT Findings: The lung bases are clear. The liver, gallbladder, pancreas, spleen, adrenal glands, and kidneys are unremarkable. There is no urolithiasis or hydronephrosis. There is no pyelonephritis. The appendix is normal. The remainder of the gastrointestinal tract is unremarkable. There are no enlarged lymph nodes. The aorta and IVC are normal. The uterus and adnexa are unremarkable. The bladder is decompressed. There is no fracture or suspicious lytic or sclerotic lesion. IMPRESSION: No acute abnormality in the abdomen or pelvis. This document has been electronically signed by: Keaton Gaxiola MD on 03/03/2025 03:03:40 Dictated By: Keaton Gaxiola MD Signed By: <Electronically signed by Keaton Gaxiola MD in OV> 03/03/25304 DD/ 2 TD/TT: 03/03/25302 Branch Office Administrator: [facility] External Provider IMG CT PROCEDURES Edited Result - Final * Hematoxylin and Eosin Stain (02/14/2025 12:46 PM EST) 02/14/2025 12:4 6 PM EST 02/17/2025 8:26 AM EST Narrative [facility] - 02/18/2025 10:58 AM EST ----- ------- Name: Shruti Winters Age/Sex: 39/F : 1985 Unit#: [id number] Attend Dr: Kaden Jett MD Re02/14/25 Status: [facility] Location: [facility] Disch: ----- ------- SPEC : [id number] RECD: 02/17/25 STATUS: ROMI RIVERA NUM: [id number] MEÑO: 02/14/25-1245 [facility] DR: Kaden Jett MD ENTERED: 02/17/25 SP TYPE: Surgical OTHR DR: Lu Estrada MD ORDERED: HE Stain/2, Gross Micro L4 Diagnosis Endometrium, curettage: Benign proliferative endometrium with focal stromal collapse; no atypia or carcinoma. Clinical History Pre-Op Dx: Polyp of cervix uteri Post-Op Dx: Normal endometrial cavity Microscopic Description Microscopic sections reviewed. Material Received [facility] Gross Description Received in formalin with rolled Telfa pad is a 2.0 cc aggregate of morton-brown spongy soft tissue, filtered through a mesh bag, totally submitted in cassette A1. (DTL) IHC S/NG Disclaimer NOTE: Unless otherwise stated, all tissue is formalin-fixed and paraffin-embedded. Some or all of the immunohistochemical tests reported herein may have been developed and their performance characteristics determined by [facility]. They have not been cleared or approved by the U.S. Food and Drug Administration (FDA). However, the FDA has determined that such clearance or approval is not necessary. This laboratory is certified under the Clinical Laboratory Improvement Amendments of 1988 (CLIA) as qualified to perform high complexity clinical laboratory testing. Copies To: Lu Estrada MD [address] [address] Kaden Jett MD [facility] Women[facility] Services [address] [place] [address] Drive [address] [place] [address] CONTINUED ON NEXT PAGE ----- ------- Name: Shruti Winters Age/Sex: 39/F : 1985 Unit#: [id number] Attend Dr: Kaden Jett MD Re02/14/25 Status: [facility] Location: [facility] Disch: ----- ------- SPEC : [id number] RECD: 02/17/25 STATUS: ROMI RIVERA NUM: [id number] MEÑO: 02/14/25 [facility] [address]: Kaden Jett MD ENTERED: 02/17/25 SP TYPE: Surgical OTHR DR: Lu Estrada MD ORDERED: HE Stain/2, Gross Micro L4 Copies To: (Continued) [phone] ----- ------- Signed (signature on file) Shefali Martinez MD 02/18/25 1058 ----- ------- END OF REPORT us Generic External Data Provider LAB BLOOD ORDERAB LES Final Result [facility] [address] [place] [phone] * HCG, Qualitative, Urine (02/14/2025 10:30 AM EST) Urine NEGATIVE NEGATIVE [facility] Comment:This test was develo ped to detect early . Falsenegative results may occur after the 5th - 7th week ofpregnancy when using this test method. If clinicallyindicated, consider a serum hCG. 02/14/2025 10:3 0 AM EST 02/14/2025 11:07 AM EST us Generic External Data Provider LAB URINE ORDERAB LES Final Result Performing Organization Address City/[facility]/ZIP Co de Phone Number [facility] [address] [place] [phone] * TSH W/Reflex to FT4 (01/16/2025 2:22 PM EDT) Pathologist [facility] TSH reflex Free T4 0.91 0.32 - 4.0 uIU/mL [facility] Blood Venous blood specimen / Unknown 01/16/2025 2:22 PM EDT 01/16/2025 3:58 PM EDT us Joseph Mix MD LAB BLOOD ORDERABLES Final Resul t Performing Organization Address [facility]/ZIP Co de Phone Number [facility] [address] [place] [phone] * (ABNORMAL) CBC auto differential (01/16/2025 2:22 PM EDT) Pathologist [facility] White Blood Count 5.6 4.8 - 10.8 X10*3/uL [facility] Red Blood Count 4.33 4.20 - 5.50 X10*6/uL [facility] Hemoglobin 12.4 12.0 - 16.0 g/dl [facility] Hematocrit 37.5 37.0 - 47.0 % [facility] Mean Corpuscular Volume 86.6 80.0 - 98.0 fL [facility] Mean Corpuscular Hemoglobin 28.6 27.0 - 33.0 pg [facility] Mean Corpuscular HGB Conc 33.1 31.0 - 35.0 g/dl [facility] Red Cell Distribution Width 13.8 11.0 - 16.0 % [facility] Platelet Count 241 160 - 400 X10*3/uL [facility] Mean Platelet Volume 10.6 9.4 - 12.3 fL [facility] Neutrophils Percent Auto 37.3(L) 45 - 73 % [facility] Imm Gran Pct Auto 0.2 0.0 - 0.4 % [facility] Lymphocytes Percent Auto 53.2(H) 20 - 40 % [facility] Monocytes Percent Auto 6.8 2 - 11 % [facility] Eosinophils Percent Auto 2.0 0 - 4 % [facility] Basophils Percent Auto 0.5 0 - 2 % [facility] NRBC Pct Auto 0.0 0.0 - 0.2 /100WBC [facility] Neutrophils Absolute Auto 2.1 2.0 - 8.3 x10*3/uL [facility] Imm Gran Abs Auto 0.01 0.00 - 0.03 X10*3/uL [facility] Lymphocytes Absolute Auto 3.0 1.2 - 4.9 X10*3/uL [facility] Monocytes Absolute Auto 0.4 0.1 - 1.2 X10*3/uL [facility] Eosinophils Absolute Auto 0.1 0.0 - 0.4 X10*3/uL [facility] Basophils Absolute Auto 0.0 0.0 - 0.2 X10*3/uL [facility] NRBC Abs Auto 0.000 0.0 - 0.012 X10*3/uL [facility] Blood Venous blood specimen / Unknown 01/16/2025 2:22 PM EDT 01/16/2025 3:58 PM EDT us Joseph Mix MD LAB BLOOD ORDERABLES Final Resul t [facility] [address] [place] [phone] [phone] * (ABNORMAL) Basic Metabolic Panel (01/16/2025 2:22 PM EDT) Sodium 140 135 - 145 mmol/L [facility] Potassium 3.8 3.3 - 5.1 mmol/L [facility] Chloride 110(H) 96 - 108 mmol/L [facility] Carbon Dioxide 23 22 - 29 mmol/L [facility] Anion Gap 11(L) 12 - 20 [facility] Urea Nitrogen (BUN) 11 9 - 16 mg/dL [facility] Creatinine, Serum 0.78 0.5 - 1.4 mg/dL [facility] Estimated Glomerular Filt Rate >60 [facility] Comment:Chronic Kidney Disea se: Estimated GFR < 60 mL/min/1.60p0Smcavw Kidney Disease: Estimated GFR < 15 mL/min/1.73m2 Glucose 88 60 - 115 mg/dL [facility] Calcium 8.6 8.4 - 10.2 mg/dL [facility] Blood Venous blood specimen / Unknown 01/16/2025 2:22 PM EDT 01/16/2025 3:58 PM EDT us Joseph Mix MD LAB BLOOD ORDERABLES Final Resul t Performing Organization Address City/State/[facility] Co de Phone Number [facility] [address] [place] [phone] * US Pelvis Transvaginal (01/10/2025 3:03 PM EDT) Anatomical Region Laterality Modality Pelvis Ultrasound 01/10/2025 3:03 PM EDT Narrative 01/10/2025 4:02 PM EDT [address] [address] Ultrasound Report Signed Patient: Shruti Winters MR#: [id number] : 1985 Acct:[id number] Age/Sex: 39 / F ADM Date: 01/10/25 Loc: .US Attending Dr: Kaden Jett MD Ordering Physician: Kaden Jett MD Date of Service: 01/10/25 Procedure(s): US pelvic and transvaginal Accession Number(s): [id number] cc: Lu Estrada MD; Kaden Jett MD [...] 01/10/25 1558 DD/ 1503 TD/TT: 01/10/25 1525 Branch Office Administrator: Procedure Note Donotuseinterpreter, Image - 01/10/[address] [address] Ultrasound Report Signed Patient: Ajay Winters#: [id number] : 1985Acct:[id number] Age/Sex: 39 / FADM Date: 01/10/25 Loc: HO.US Attending Dr: Kaden Jett MD Ordering Physician: Kaden Jett MD Date of Service: 01/10/25 Procedure(s): US pelvic and transvaginal Accession Number(s): [id number] cc: Lu Estrada MD; Kaden Jett MD [...] 01/10/25 1558 DD/ 1503 TD/TT: 01/10/25 1525 Branch Office Administrator: [facility] External Provider IMG US PROCEDURES Final Result * (ABNORMAL) Lipid Panel with Reflex to Direct LDL (01/22/2024 3:20 PM EDT) Triglycerides 88 <150 mg/dL [facility] Comment:Desirable Triglyceri de: less [...] 190 mg/dL HDL Cholesterol 40(L) >40 mg/dL [facility] Comment:Desirable HDL: great er than 40 mg/dL Note: This HDL assay may give artificially low results in patients with liver disease. Blood 01/22/2024 3:20 PM EDT 01/22/2024 4:05 PM EDT Lu Estrada MD LAB BLOOD ORDERABLES Final Resul t [facility] [address] [place] [phone] * ThinPrep Imaging Pap and HPV mRNA E6/E7 with Reflex to HPV 16,18/45 (12/05/2023 12:00 AM EDT) HPV 16 RNA [facility] HPV 18/45 RNA [facility] HPV nRNA E6/E7 Not Detected Not Detected [facility] Comment:Methodology: Transcr iption-Mediated AmplificationThis assay detects E6/E7 viral messenger RNA (mRNA) from 14high-risk HPV types (16,18,31,33,35,39,45,51,52,56,58,59,66,68).Cervical sources are required for HPV testing.If a vaginal source from a patient who has had atotal hysterectomy with removal of cervix wassubmitted, please contact the testing laboratoryfor alternative testing options.For additional information, please refer tohttp://education.Peeractive/faq/GSG400b4(This link if provided for information/educational purposes only.)THIS TEST WAS PERFORMED AT:[facility] [address] [phone] MILLS MD SOURCE: SEE NOTE [facility] Comment:None given Report Status: [facility] Clinical Information: SEE NOTE [facility] Comment:None given LMP: SEE NOTE [facility] Comment:NONE GIVEN Prev. PAP: SEE NOTE [facility] Comment:NONE GIVEN Prev. BX: SEE NOTE [facility] Comment:NONE GIVEN Statement Of Adequacy: SEE NOTE [facility] Comment:Satisfactory for tahmina luation.Endocervical/transformation zone componentpresent. General Categorization: [facility] Interpretation/Result: SEE NOTE [facility] Comment:Cytology Results: Ne gative for intraepitheliallesion or malignancy. Cytology Comment SEE NOTE [facility] Comment:This Pap test has be en evaluated with computerassisted technology. Pillowcase Maker: SEE NOTE [facility] Comment:[place], CT(ASCP)CT scre ening location: [address] [address] Review Pillowcase Maker: [facility] Pathologist [facility] PAP Infection [facility] See Note SEE NOTE [facility] [...] ORD ERABLES Final Result Performing Organization Address [facility] Co de Phone Number [facility] [address] [place] [address] [phone] * HEPATITIS C AB W/REFL TO [...] a test for HCV RNA (test code 33109) is suggested. For additional information please refer to http://education.[employer]/faq/SGI67s6 (This link is being provided for informational/ educational purposes only.) 03/16/2020 4:32 PM EST us Lu Estrada MD HISTORICAL/NON ORDERABLE LABS Fi nal Result Performing Organization Address [facility] Co de Phone Number [facility] [address] * HIV 1/2 ANTIGEN/ANTIBODY,FOURTH GENERATION W/RFL (03/16/2020 4:32 PM EST) HIV-1/2 ANTIGEN AND ANTIBODIES, 4TH GENERATION W/ REFLEX NON-REACT CORA NON-REACT CORA [facility] Comment: HIV-1 antigen and [...] purpose. For additional information please refer to http://education.Peeractive/faq/SQH270 (This link is being provided for informational/ educational purposes only.) The performance of this assay has not been clinically validated in patients less than 2 years old. 03/16/2020 4:32 PM EST us Lu Estrada MD LAB BLOOD ORDERABLES Final Resul t [facility] [address] from Last 3 Months or Most Recently Relevant to Health Maintenance Insurance [facility] C[place] ST[place] ADULT Care Teams Customer Services Coordinator Relationship Specialty Start Date End Date Lu Estrada MD [address] [place] [phone] PCP - General Family Medicine 03/27/18
--- OUTSIDE RECORDS SUMMARY | 2025-03-05 23:28 | XMS_ITS | Encounter Summary ---
Author Organization [employer] Address [address] [place] [address] [address] [place] [address] Care Team Providers Care Compliance Lead Name Role Phone Lu Estrada MD Primary Care Provider [phone] Encounter Details Date Type Department Care Team ([facility] Contact Info) Description 03/18/2022 Abstract [facility] [address] [place] [phone] Viet Kellogg DDS [address] [place] [address] Social History Tobacco Use Types Packs/Day Years [...] Upcoming Encounters Date Type Department Care Team ([facility] Contact Info) Description 03/10/2025 1:00 PM EST Office Visit [facility] [address] [place] [address] Vandana Black ANP [address] [place] [address] 07/29/2025 12:45 PM EDT Office Visit [facility] [address] [place], [place] [phone] Heidi Ennis [address] [place], [place] [phone] documented as of this encounter Visit Diagnoses Not on filedocumented in this encounter Care Teams Compliance Lead Relationship Specialty Start Date End Date Lu Estrada MD [address] [place] [address] PCP - General Family Medicine 03/27/18 documented as of this encounter
--- OUTSIDE RECORDS SUMMARY | 2025-03-05 23:28 | XMS_ITS | Encounter Summary ---
Author Organization [employer] Address [address] [place] [address] 7 [place] [address] Care Team Providers Care Quality Nurse Name Role Phone Lu Estrada MD Primary Care Provider Reason for Visit * Reason Comments Med Refill Encounter Details Date Type Department Care Team (Late Contact Info) Description 04/19/2022 Refill [facility] MEDICINE [address] [place] [address] [phone] Leatha Chong MD [address] [place] [address] [phone] Primary hypertension (Primary Dx) Social History Tobacco [...] [facility] MEDICINE [address] [place] [address] [phone] Vandana Black ANP 230 [place], [place] [phone] 07/29/2025 12:45 PM EDT Office Visit [facility] ADULT DENTAL [address] [place], [place] [phone] Heidi Ennis 230 [place], [place] [phone] documented as of this encounter Visit Diagnoses Diagnosis Primary hypertension- Primary Unspecified essential hypertension documented in this encounter Care Teams Quality Nurse Relationship Specialty Start Date End Date Lu Estrada MD 230 [place] [address] PCP - General Family Medicine 03/27/18 documented as of this encounter
--- OUTSIDE RECORDS SUMMARY | 2025-03-05 23:28 | XMS_ITS | Encounter Summary ---
Demographics Address [address] [facility] [address] [place] [address] Home Phone Work Phone Mobile Phone Email Address Preferred Language en Marital Status Single Mu-Ism Affiliation Unknown Race Other Race Ethnic Group Unknown Author Organization [employer] Address [address] [facility] 7t [place] [address] Care Team Providers Care Rn Cardiac Cath Name Role Phone Lu Estrada MD Primary Care Provider [phone] Encounter Details Date Type Department Care Team ([facility] Contact Info) Description 03/28/2024 Orders Only [facility] CHC MED & PEDS [address] [place] [address] Elliot Antunez MD 505 [place] [address] Social History Tobacco Use Types Packs/Day Years [...] [facility] MEDICINE 230 [place] [address] Vandana Black ANP [address] [place] [address] 07/29/2025 12:45 PM EDT Office Visit [facility] ADULT DENTAL [address] [place] [address] Heidi Ennis [address] [place] [address] documented as of this encounter Visit Diagnoses Not on filedocumented in this encounter Additional Health Concerns Assessment Noted Time PHQ-9 Depression Total Score: 5 01/22/20 24 3:06 PM EDT documented as of this encounter Care Teams Rn Cardiac Cath Relationship Specialty Start Date End Date Lu Estrada MD [address] [place] [address] PCP - General Family Medicine 03/27/18 documented as of this encounter
--- OUTSIDE RECORDS SUMMARY | 2025-03-05 23:28 | XMS_ITS | Encounter Summary ---
Demographics Address [address] [facility] [address] [place] [address] Home Phone Work Phone Mobile Phone Email Address Preferred Language en Marital Status Single Taoist Affiliation Unknown Race Other Race Ethnic Group Unknown Author Organization [employer] Address [address] [facility] 7t [place] [address] Care Team Providers Care Iron Worker Foreman Name Role Phone Lu Estrada MD Primary Care Provider [phone] Reason for Visit * Reason Comments Med Refill Encounter Details Date Type Department Care Team ([facility] st Contact Info) Description 06/18/2022 Refill [facility] CHC MED & PEDS [address] [place] [address] Vandana Black, ANP 230 [place] [address] Social History Tobacco Use Types Packs/Day Years [...] Description 03/10/2025 1:00 PM EST Office Visit [facility] MEDICINE [address] [place] [address] Vandana Black ANP 230 [place] [address] 07/29/2025 12:45 PM EDT Office Visit [facility] ADULT DENTAL [address] [place] [address] Heidi Ennis [address] [place] [address] documented as of this encounter Visit Diagnoses Not on filedocumented in this encounter Care Teams Iron Worker Foreman Relationship Specialty Start Date End Date Lu Estrada MD [address] [place] [address] PCP - General Family Medicine 03/27/18 documented as of this encounter
--- OUTSIDE RECORDS SUMMARY | 2025-03-05 23:28 | XMS_ITS | Encounter Summary ---
Author Organization [employer] Address [address] [place] [address] 7t [place] [address] Care Team Providers Care Stores Assistant Name Role Phone Lu Estrada MD Primary Care Provider [phone] Reason for Visit * Reason Onset Date Comments Appointment Request 12/23/2022 Derm Encounter Details Date Type Department Care Team ([facility] Contact Info) Description 12/23/2022 Telephone [facility] MEDICINE [address] [place] [address] Lu Estrada MD [address] [place] [address] Appointment Request (Derm ) Social History Tobacco [...] Description 03/10/2025 1:00 PM EST Office Visit [facility] MEDICINE [address] [place] [address] Vandana Black ANP [address] [place] [address] 07/29/2025 12:45 PM EDT Office Visit [facility] ADULT DENTAL [address] [place] [address] Heidi Ennis [address] [place] [address] documented as of this encounter Visit Diagnoses Not on filedocumented in this encounter Care Teams Stores Assistant Relationship Specialty Start Date End Date Lu Estrada MD [address] [place] [address] PCP - General Family Medicine 03/27/18 documented as of this encounter
--- OUTSIDE RECORDS SUMMARY | 2025-03-05 23:28 | XMS_ITS | Encounter Summary ---
Author Organization [employer] Address [address] [facility] 7t [place] [address] Care Team Providers Care Heel Seat Flap Stapler Name Role Phone Lu Estrada MD Primary Care Provider [phone] Reason for Visit * Reason Onset Date Comments Letter for School/Work 04/27/2023 Encounter Details Date Type Department Care Team ([facility] Contact Info) Description 04/27/[address] [facility] MEDICINE [address] [place] [address] Lu Estrada MD [address] [place] [address] Letter for School/Work Social History Tobacco Use [...] 1:00 PM EST Office Visit [facility] MEDICINE [address] [place] [address] Vandana Black ANP [address] [place] [address] 07/29/2025 12:45 PM EDT Office Visit [facility] ADULT DENTAL 230 [place] [address] Mc Ennisaris 230 [place] [address] documented as of this encounter Visit Diagnoses Not on filedocumented in this encounter Additional Health Concerns Assessment Noted Time PHQ-9 Depression Total Score: 0 03/08/20 23 11:18 AM EST documented as of this encounter Care Teams Heel Seat Flap Stapler Relationship Specialty Start Date End Date Lu Estrada MD [address] [place] [address] PCP - General Family Medicine 03/27/18 documented as of this encounter
--- OUTSIDE RECORDS SUMMARY | 2025-03-05 23:28 | XMS_ITS | Encounter Summary ---
Author Organization [employer] Address [address] [place] [address] 7 [place] [address] Care Team Providers Care Annual Giving Officer Name Role Phone Lu Estrada MD Primary Care Provider [phone] Encounter Details Date Type Department Care Team (Latest Contact Info) Description 07/08/2020 Abstract [facility] CONVERSIONS Dental, Provider, DDS [...] Encounters Date Type Department Care Team ( st Contact Info) Description 03/10/2025 1:00 PM EST Office Visit [facility] MEDICINE 230 [place] [address] Vandana Black ANP 230 [place] [address] 07/29/2025 12:45 PM EDT Office Visit [facility] ADULT DENTAL 230 [place] [address] Mc Ennisaris 230 [place] [address] documented as of this encounter Visit Diagnoses Not on filedocumented in this encounter Care Teams Annual Giving Officer Relationship Specialty Start Date End Date Lu Estrada MD 230 [place] [address] PCP - General Family Medicine 03/27/18 documented as of this encounter
--- OUTSIDE RECORDS SUMMARY | 2025-03-05 23:28 | XMS_ITS | Encounter Summary ---
Author Organization [employer] Address [address] [place] [address] 7t [place] [address] Care Team Providers Care Chicken Cleaner Name Role Phone Lu Estrada MD Primary Care Provider [phone] Reason for Visit * Reason Comments Med Refill Encounter Details Date Type Department Care Team ([facility] Contact Info) Description 04/22/2022 Refill [facility] CHC MED & PEDS [address] [place] [address] Vandana Black, ANP [address] [place] [address] Social History Tobacco Use Types Packs/Day Years [...] Date Type Department Care Team ([facility] Contact Info) Description 03/10/2025 1:00 PM EST Office Visit [facility] MEDICINE 230 [place] [address] Vandana Black ANP 230 [place] [address] 07/29/2025 12:45 PM EDT Office Visit [facility] ADULT DENTAL 230 [place] [address] Heidi Ennis 230 [place] [address] documented as of this encounter Visit Diagnoses Not on filedocumented in this encounter Care Teams Chicken Cleaner Relationship Specialty Start Date End Date Lu Estrada MD 230 [place] [address] PCP - General Family Medicine 03/27/18 documented as of this encounter
== END 2025-03-05 16:05 | disposition home or self-care (01) ==
LOC: HO.HWS 14:56
PROVIDERS: Visit Provider Obstetrics & Gynecology
DX: R10.22 Pelvic and perineal pain left side (principal); R31.29 Other microscopic hematuria; R31.9 Hematuria, unspecified
CPT/HCPCS: 99213

== ENCOUNTER → 2025-03-25 15:54 | Outpatient (BNVA) | payer MEDICAID, SELFPAY | PROVIDERS: Visit Provider Obstetrics & Gynecology | DX: R31.29 Other microscopic hematuria (principal) | CPT/HCPCS: 81002; 99212 ==

== ENCOUNTER 2025-03-25 16:16 | Outpatient (AMB) | payer MEDICAID, SELFPAY ==
--- NOTE | 2025-03-25 15:58 | A.OFFVIS_ITS ---
Intake Visit Reasons: urine dip Allergies No Known Allergies (No Known Allergies*) Allergy (Verified 03/05/25 15:54) HPI Comments Details: Presenting for repeat urine dip last urine culture was negative PFSH Medical History GERD (gastroesophageal reflux disease) Simple ovarian cyst Hypertension IBS (irritable bowel syndrome) Fibromyalgia Asthma Migraines Surgical History Hx of excision of mass Hx of colonoscopy History of esophagogastroduodenoscopy (EGD) History of loop electrical excision procedure (LEEP) Hx of tubal ligation Family History Mother Diabetes HTN (hypertension) Asthma Brother Asthma Social History Household Members: Children Are you a primary administrator health care facility to a significant other at home: No Do you presently have visiting nurse or other home services: No Alcohol intake: never Patient Tobacco Use Status: Never used Tobacco Substance Use Type: Marijuana Advance Directives Date on File: 08/29/24 Current occupational status: employed 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 All questions answered, the patient verbalized understanding Orders: Orders AMB Urinalysis Dipstick Today R31.29 - Other microscopic hematuria Coding Level of Care Code Est Pt Level 3 (57015) Diagnoses Microscopic hematuria R31.29
--- OUTSIDE RECORDS SUMMARY | 2025-03-25 18:58 | XMS_ITS | Encounter Summary ---
Author Organization [employer] Address [address] [place] [address] 7t [place] [address] Care Team Providers Care Hand Therapist Name Role Phone Lu Estrada MD Primary Care Provider [phone] Reason for Referral * Consultation (Routine) - Closed Specialty Diagnoses / Procedures Referred By Amanda mead Referred To Contact Orthopaedic Surgery Diagnoses Ganglion cyst of wrist, right Lu Estrada MD [address] [place] [address] Phone: tel: fax: [facility] Referral ID Status Reason Start Date Expiration Date V isits Requested Visits Authorized [id number] Closed Specialty Services Required 06/25/2024 06/25/2025 12 12 Encounter Details Date Type Department Care Team (Late st Contact Info) Description 06/24/2024 Orders Only [facility] MEDICINE [address] [place] [address] [id number] Lu Estrada MD 230 [place], [place] [phone] Ganglion cyst of wrist, right (Primary Dx) [...] 07/29/2025 12:45 PM EDT Office Visit [facility] ADULT DENTAL 230 [place] [address] Raymon, Heidi 230 [place] [address] Scheduled Referrals Name Type Priority Associated Diagnoses [...] documented as of this encounter Care Teams Hand Therapist Relationship Specialty Start Date End Date Lu Estrada MD 230 [place] [address] PCP - General Family Medicine 03/27/18 documented as of this encounter
--- OUTSIDE RECORDS SUMMARY | 2025-03-25 18:58 | XMS_ITS | Encounter Summary ---
Author Organization [employer] Address [address] [facility] 7t [place] [address] Care Team Providers Care Sash Clamp Operator Name Role Phone Lu Estrada MD Primary Care Provider [phone] Reason for Visit * Reason Comments Med Refill Encounter Details Date Type Department Care Team ([facility] st Contact Info) Description 05/01/2023 Refill [facility] MEDICINE [address] [place] [address] Lorri Eduardo, 230 [place] [address] Social History Tobacco Use Types Packs/Day Years [...] PM EDT Office Visit [facility] ADULT DENTAL [address] [place] [address] Raymon, Heidi [address] [place] [address] documented as of this encounter Visit Diagnoses Not on filedocumented in this encounter Additional Health Concerns Assessment Noted Time PHQ-9 Depression Total Score: 0 03/08/20 23 11:18 AM EST documented as of this encounter Care Teams Sash Clamp Operator Relationship Specialty Start Date End Date Lu Estrada MD [address] [place] [address] PCP - General Family Medicine 03/27/18 documented as of this encounter
--- OUTSIDE RECORDS SUMMARY | 2025-03-25 18:58 | XMS_ITS | Encounter Summary ---
Author Organization [employer] Address [address] [facility] [address] 7t [place] [address] Care Team Providers Care Structures Engineer Name Role Phone Lu Estrada MD Primary Care Provider [phone] Encounter Details Date Type Department Care Team ([facility] Contact Info) Description 05/29/2023 Abstract [facility] MEDICINE [address] [place], [place] [phone] Lu Estrada MD 230 [place], [place] [phone] Social History Tobacco Use Types Packs/Day Years [...] Office Visit [facility] ADULT DENTAL [address] [place] [address] Raymon, Heidi 230 [place] [address] documented as of this encounter Procedures Procedure [...] documented as of this encounter Care Teams Structures Engineer Relationship Specialty Start Date End Date Lu Estrada MD 230 [place], [place] [phone] PCP - General Family Medicine 03/27/18 documented as of this encounter
--- OUTSIDE RECORDS SUMMARY | 2025-03-25 18:58 | XMS_ITS | Encounter Summary ---
Author Organization [employer] Address [address] [place] [address] 7t [place] [address] Care Team Providers Care Manager Route Name Role Phone Lu Estrada MD Primary Care Provider [phone] Encounter Details Date Type Department Care Team ([facility] Contact Info) Description 03/18/2022 Abstract [facility] ADULT DENTAL [address] [place] [address] Viet Kellogg DDS [address] [place] [address] Social History Tobacco Use Types Packs/Day Years [...] Team ([facility] Contact Info) Description 07/29/2025 12:45 PM EDT Office Visit [facility] ADULT DENTAL [address] [place] [address] Heidi Ennis [address] [place] [address] documented as of this encounter Visit Diagnoses Not on filedocumented in this encounter Care Teams Manager Route Relationship Specialty Start Date End Date Lu Estrada MD 230 [place] [address] PCP - General Family Medicine 03/27/18 documented as of this encounter
--- OUTSIDE RECORDS SUMMARY | 2025-03-25 18:58 | XMS_ITS | Encounter Summary ---
Author Organization [employer] Address [address] [facility] 7t [place] [address] Care Team Providers Care Effervescent Salts Compounder Name Role Phone Lu Estrada MD Primary Care Provider Reason for Visit * Reason Onset Date Comments Letter for School/Work 04/27/2023 Encounter Details Date Type Department Care Team ([facility] Contact Info) Description 04/27/2023 Telephone [facility] MEDICINE [address] [place] [address] Lu Estrada MD [address] [place] [address] Letter for School/Work Social History Tobacco Use [...] Description 07/29/2025 12:45 PM EDT Office Visit [facility] ADULT DENTAL [address] [place] [address] Raymon, Heidi [address] [place] [address] documented as of this encounter Visit Diagnoses Not on filedocumented in this encounter Additional Health Concerns Assessment Noted Time PHQ-9 Depression Total Score: 0 03/08/20 23 11:18 AM EST documented as of this encounter Care Teams Effervescent Salts Compounder Relationship Specialty Start Date End Date Lu Estrada MD [address] [place] [address] PCP - General Family Medicine 03/27/18 documented as of this encounter
--- OUTSIDE RECORDS SUMMARY | 2025-03-25 18:58 | XMS_ITS | Encounter Summary ---
Author Organization [employer] Address [address] [place] [address] 7t [place] [address] Care Team Providers Care Pier Master Name Role Phone Lu Estrada MD Primary Care Provider [phone] Encounter Details Date Type Department Care Team [...] Description 07/29/2025 12:45 PM EDT Office Visit [facility] ADULT DENTAL [address] [place] [address] Raymon, Heidi [address] [place] [address] documented as of this encounter Visit Diagnoses Not on filedocumented in this encounter Care Teams Pier Master Relationship Specialty Start Date End Date Lu Estrada MD 230 [place] [address] PCP - General Family Medicine 03/27/18 documented as of this encounter
--- OUTSIDE RECORDS SUMMARY | 2025-03-25 18:58 | XMS_ITS | Encounter Summary ---
Author Organization [employer] Address [address] [place] [address] 7 [place] [address] Care Team Providers Care Agricultural Agent Name Role Phone Lu Estrada MD Primary Care Provider [phone] Reason for Visit * Reason Comments Med Refill Encounter Details Date Type Department Care Team (Late Contact Info) Description 04/19/2022 Refill [facility] MEDICINE [address] [place] [address] Leatha Chong MD [address] [place] [address] Primary hypertension (Primary Dx) Social History Tobacco [...] [facility] ADULT DENTAL [address] [place] [address] Heidi Ennis [address] [place] [address] documented as of this encounter Visit Diagnoses Diagnosis Primary hypertension- Primary Unspecified essential hypertension documented in this encounter Care Teams Agricultural Agent Relationship Specialty Start Date End Date Lu Estrada MD [address] [place] [address] PCP - General Family Medicine 03/27/18 documented as of this encounter
--- OUTSIDE RECORDS SUMMARY | 2025-03-25 18:58 | XMS_ITS | Encounter Summary ---
Author Organization [employer] Address [address] [place] [address] 7 [place] [address] Care Team Providers Care Head Of Advertising Name Role Phone Lu Estrada MD Primary Care Provider [phone] Encounter Details Date Type Department Care Team (Latest Contact Info) Description 07/08/2020 Abstract [facility] CONVERSIONS Dental, Provider, DDS Social [...] Description 07/29/2025 12:45 PM EDT Office Visit [facility] ADULT DENTAL [address] [place] [address] Raymon, Heidi [address] [place] [address] documented as of this encounter Visit Diagnoses Not on filedocumented in this encounter Care Teams Head Of Advertising Relationship Specialty Start Date End Date Lu Estrada MD 230 [place] [address] PCP - General Family Medicine 03/27/18 documented as of this encounter
--- OUTSIDE RECORDS SUMMARY | 2025-03-25 18:58 | XMS_ITS | Encounter Summary ---
Author Organization [employer] Address [address] [place] [address] 7t [place] [address] Care Team Providers Care Bacteriology Technician Name Role Phone Lu Estrada MD Primary Care Provider [phone] Encounter Details Date Type Department Care Team (Late st Contact Info) Description 04/19/2022 Orders Only [facility] MEDICINE [address] [place] [address] Lu Estrada MD [address] [place] [address] Social History Tobacco Use Types Packs/Day Years [...] PM EDT Office Visit [facility] ADULT DENTAL [address] [place] [address] Raymon, Heidi 230 [place], [place] [phone] documented as of this encounter Visit Diagnoses Not on filedocumented in this encounter Care Teams Bacteriology Technician Relationship Specialty Start Date End Date Lu Estrada MD [address] [place] [address] PCP - General Family Medicine 03/27/18 documented as of this encounter
--- OUTSIDE RECORDS SUMMARY | 2025-03-25 18:58 | XMS_ITS | Encounter Summary ---
Demographics Address [address] [facility] [address] [place] [address] Home Phone Work Phone Mobile Phone Email Address Preferred Language en Marital Status Single Sikhism Affiliation Unknown Race Other Race Ethnic Group Unknown Author Organization [employer] Address [address] [facility] [address] 7t [place] [address] Care Team Providers Care Director Of Land Acquisition Name Role Phone Lu Estrada MD Primary Care Provider [phone] Encounter Details Date Type Department Care Team ([facility] Contact Info) Description 01/27/2025 Orders Only [facility] MEDICINE 230 [place] [address] Lu Estrada MD [address] [place] [address] Moderate persistent asthma without complication; Chronic migraine [...] Visit [facility] ADULT DENTAL 230 [place] [address] Raymon, Heidi [address] [place] [address] documented as of this encounter Visit Diagnoses Diagnosis Moderate persistent asthma without complication Chronic migraine without aura without status migrainosus, not intractable Primary hypertension Unspecified essential hypertension documented in this encounter Additional Health Concerns Assessment Noted Time PHQ-9 Depression Total Score: 5 01/22/20 24 3:06 PM EDT documented as of this encounter Care Teams Director Of Land Acquisition Relationship Specialty Start Date End Date Lu Estrada MD 230 [place] [address] PCP - General Family Medicine 03/27/18 documented as of this encounter
--- OUTSIDE RECORDS SUMMARY | 2025-03-25 18:58 | XMS_ITS | Encounter Summary ---
Demographics Address [address] [facility] [address] [place] [address] Home Phone Work Phone Mobile Phone Email Address Preferred Language en Marital Status Single Amish Affiliation Unknown Race Other Race Ethnic Group Unknown Author Organization [employer] Address [address] [facility] 7t [place] [address] Care Team Providers Care Oracle Data Warehouse Developer Name Role Phone Lu Estrada MD Primary Care Provider [phone] Encounter Details Date Type Department Care Team ([facility] Contact Info) Description 03/28/2024 Orders Only [facility] CHC MED & PEDS [address] [place] [address] Elliot Antunez MD [address] [place] [address] Social History Tobacco Use Types Packs/Day Years [...] [facility] ADULT DENTAL [address] [place] [address] Heidi Ennis [address] [place] [address] documented as of this encounter Visit Diagnoses Not on filedocumented in this encounter Additional Health Concerns Assessment Noted Time PHQ-9 Depression Total Score: 5 01/22/20 24 3:06 PM EDT documented as of this encounter Care Teams Oracle Data Warehouse Developer Relationship Specialty Start Date End Date Lu Estrada MD 230 [place] [address] PCP - General Family Medicine 03/27/18 documented as of this encounter
--- OUTSIDE RECORDS SUMMARY | 2025-03-25 18:58 | XMS_ITS | Encounter Summary ---
Author Organization [employer] Address [address] [place] [address] 7 [place] [address] Care Team Providers Care Green Pipefitter Name Role Phone Lu Estrada MD Primary Care Provider [phone] Encounter Details Date Type Department Care Team (Late st Contact Info) Description 04/04/2022 Abstract [facility] [address] [place] [address] Viet Kellogg DDS [address] [place] [address] Social History Tobacco Use Types Packs/Day Years [...] Description 07/29/2025 12:45 PM EDT Office Visit [facility] [address] [place] [address] Heidi Ennis [address] [place] [address] documented as of this encounter Visit Diagnoses Not on filedocumented in this encounter Care Teams Green Pipefitter Relationship Specialty Start Date End Date Lu Estrada MD [address] [place] [address] PCP - General Family Medicine 03/27/18 documented as of this encounter
--- OUTSIDE RECORDS SUMMARY | 2025-03-25 18:58 | XMS_ITS | Encounter Summary ---
Author Organization [employer] Address [address] [place] [address] 7 [place] [address] Care Team Providers Care Health Lead Name Role Phone Lu Estrada MD Primary Care Provider [phone] Encounter Details Date Type Department Care Team (Late Contact Info) Description 02/23/2022 Abstract [facility] [address] [place] [address] Dental, Provider, DDS Social History Tobacco Use [...] Upcoming Encounters Date Type Department Care Team ([facility] Contact Info) Description 07/29/2025 12:45 PM EDT Office Visit [facility] [address] [place] [address] Heidi Ennis [address] [place] [address] documented as of this encounter Procedures Procedure Name Priority Date/Time Associated Diagnosis Comments 14 O AMALGAM FILLING Routine 02/23/2022 12:00 AM EST documented in this encounter Visit Diagnoses Not on filedocumented in this encounter Care Teams Health Lead Relationship Specialty Start Date End Date Lu Estrada MD [address] [place] [address] PCP - General Family Medicine 03/27/18 documented as of this encounter
--- OUTSIDE RECORDS SUMMARY | 2025-03-25 18:58 | XMS_ITS | Clinical Summary ---
Author Organization [employer] Address [address] [place] [address] 7t [place] [address] Care Team Providers Care Sound Designer Name Role Phone Lu Estrada MD Primary Care Provider [phone] Allergies No known active allergies Medications hydrocortisone [...] Feb 2024 was unremarkable - since her [employer]RAVER [employer] surgery; advised to contact her surgeon or [employer] Atypical chest pain 07/13/2022 Enlarged tonsils 07/13/2022 [...] Plan (04/25/2022 4:36 PM EST): -followed by [facility] GI continue famotidine -continue pantoprazole -avoid NSAIDS IBS (irritable bowel syndrome) 04/21/2022 Assessment & Plan (01/28/2024 4:45 PM EST): - followed by [facility] last seen in May 2023 - s/p EGD and colonoscopy -GI prescribed dicyclomine, simethicone, and Creon, but she is not taking it; recommended to discuss with GI specialist before discontinuing it -work on stress reduction Assessment & Plan (05/05/2023 6:42 AM EST): - followed by [facility] last seen in Nov 2022 - [...] (04/29/2022 6:27 PM EST): - followed by [facility] last seen on 03/24/22 -continue dicyclomine [...] 4:48 PM EST): - previously seen by [facility] Clinician. - patient is not interested in behavioral health service -Pt was recommended to improve sleepy hygien and exercise during the day instead of taking medications Assessment & Plan (04/25/2022 4:35 PM EST): Was seen by [facility] Clinician. -Will check status of f/u. -Pt was recommended to improve sleepy hygien and exercise during the day instead of taking medications Dislocation of acromioclavicular joint 7 Migraine 05/04/2016 Assessment & Plan (04/28/2024 4:12 PM EST): -seen by [facility] neurologist in Apr 2019 -seen by [facility] neurology in Dec 2022 -04/23/22 Head [...] Plan (01/28/2024 4:50 PM EST): -seen by [facility] neurologist in Apr 2019 -seen by [facility] neurology in Dec 2022 -04/23/22 Head [...] Plan (05/05/2023 6:51 AM EST): -seen by [facility] neurologist in Apr 2019 -seen by [facility] neurology in Dec 2022 -04/23/22 Head [...] Encounters Date Type Department Care Team Description 03/10/2025 Telephone [facility] [place] [address] Vandana Black ANP No Show 03/06/2025 Telephone [facility] [place] [address] Vandana Black ANP chart prep 03/05/2025 Orders Only GENERIC EXTERNAL DATA DEPARTMENT Provider, Generic External Data 03/05/2025 Telephone [facility] [address] Lorri Eduardo DO No Show 03/03/2025 Telephone [facility] [address] Lu Estrada MD ER Follow-up 02/18/2025 Telephone [facility] [address] Lu Estrada MD No Show 02/17/2025 Telephone [facility] [address] Lu Estrada MD chartprep 02/14/2025 Orders Only GENERIC EXTERNAL DATA DEPARTMENT Provider, Generic External Data 02/10/2025 Patient Outreach [facility] [address] Lu Estrada MD Pre-visit Planning (SDOH screening was completed on 12/18/2024) 01/27/2025 12:45 PM EST Office Visit [facility] [place] [address] Heidi Ennis Dental calculus (Primary Dx); Dental plaque 01/27/2025 Orders Only [facility] [address] Lu Estrada MD Moderate persistent asthma without complication; Chronic migraine without aura without status migrainosus, not intractable; Primary hypertension 01/24/2025 Telephone [place] [address] Lu Estrada MD Med Refill 01/17/2025 Results Follow-Up [facility] [address] [place], [place] [phone] Joseph Mix MD TSH W/Reflex to FT4, CBC auto differential, Basic Metabolic Panel 01/10/2025 Orders Only [facility] External Provider, [facility] 12/24/2024 Telephone [facility] [address] [place] [address] Lu Estrada MD chart prep from Last 3 Months Immunizations Immunization Administration Dates Next Due DTaP 11/04/2011, 2,05/31/1991,05/09,02/05/1988,1987 Hep A, Adult 12/26/2017 Hep B, Adolescent or Pediatric 11/16/1999,1998 Hep B, adult 12/26/2017 Hib ([facility]) 05/09/1990 IPV 01/26/1988 Influenza injectable quadriv alent [...] Description 07/29/2025 12:45 PM EDT Office Visit [facility] [address] [place], [place] [phone] Raymon, Heidi [address] [place] [address] Health Maintenance Due Date Last Done Comments [...] Associated Diagnosis Comments CULTURE, URINE, ROUTINE Routine 03/05/2025 2:55 PM EST CHLAMYDIA/N. GONORRHOEAE RNA, TMA, UROGENITAL Routine 03/05/2025 [...] EST) CT PCR NOT DETECTED Not Detect. [facility] Comment:A not detected test result does [...] psychologicalconsequences. NG PCR NOT DETECTED Not Detect. [facility] Comment:A not detected test result does [...] LAB MICROBIOLOGY - GENERAL ORDERABLES Final Result [facility] [address] [place] [phone] * Culture, Urine, Routine (03/05/2025 2:55 PM EST) Urine Urine specimen obtained by clean catch procedure / Unknown 03/05/2025 2:55 PM EST 03/05/2025 5:19 PM EST Comment:UACC Narrative [facility] - 03/07/2025 10:44 AM EST Urine Culture No growth. Specimen Source: Urine clean catch us Generic External Data Provider LAB MICRO BIOLOGY - GENERAL ORDERABLES Edited Result - Final [facility] [address] [place] [phone] * CT Abdomen Pelvis w/ Contrast (03/03/2025 3:03 AM EST) Anatomical Region Laterality Modality Body, Pelvis, Abdomen Computed T omography 03/03/2025 3:03 AM EST Narrative 03/03/2025 3:05 AM EST [address] [address] [address] Scan Report Signed Patient: Shruti Winters MR#: [id number] : 1985 Acct:[id number] Age/Sex: 39 / F ADM Date: 03/02/25 Loc: .ED Attending Dr: Ordering Physician: Agustín Solorio PA-C Date of Service: 03/03/25 Procedure(s): CT abdomen pelvis w IV con Accession Number(s): [id number] cc: [facility]; Agustín Solorio PA-C Report Number: [id number]: Total DLP = 617.00 mGy-cm Reason for [...] in OV> 03/03/25304 DD/ 2 TD/TT: 03/03/25302 Form Raiser: Procedure Note Donotuseinterpreter, Image - 03/03/[address] [place] [address] [address] Scan Report Signed Patient: Ajay Winters#: [id number] : 1985Acct:[id number] Age/Sex: 39 / FADM Date: 03/02/25 Loc: HO.ED Attending Dr: Ordering Physician: Agustín Solorio PA-C Date of Service: 03/03/25 Procedure(s): CT abdomen pelvis w IV con Accession Number(s): [id number] cc: [facility]; Agustín Solorio PA-C Report Number: [id number]: Total DLP = 617.00 mGy-cm Reason for [...] in OV> 03/03/25304 DD/ 2 TD/TT: 03/03/25302 Form Raiser: [facility] External Provider IMG CT PROCEDURES Edited Result - Final * Hematoxylin and Eosin Stain (02/14/2025 12:46 PM EST) 02/14/2025 12:4 6 PM EST 02/17/2025 8:26 AM EST Narrative [facility] - 02/18/2025 10:58 AM EST ----- ------- Name: Mike JonShruti villalba Age/Sex: 39/F : 1985 Unit#: [id number] Attend Dr: Kaden Jett MD Re02/14/25 [address]: [facility] Location: [facility] Disch: ----- ------- SPEC : [id number] RECD: 02/17/25 STATUS: ROMI RIVERA NUM: [id number] MEÑO: 02/14/[address] [facility] [address]: Kaden Jett MD ENTERED: 02/17/25 SP TYPE: Surgical OTHR DR: Lu Estrada MD ORDERED: HE Stain/2, Gross Micro L4 Diagnosis Endometrium, curettage: Benign proliferative endometrium with focal stromal collapse; no atypia or carcinoma. Clinical History Pre-Op Dx: Polyp of cervix uteri Post-Op Dx: Normal endometrial cavity Microscopic Description Microscopic sections reviewed. Material Received [facility] Gross Description Received in formalin with rolled Telfa pad is a 2.0 cc aggregate of morton-brown spongy soft tissue, filtered through a mesh bag, totally submitted in cassette A1. (DTL) IHC S/NG Disclaimer NOTE: Unless otherwise stated, all tissue is formalin-fixed and paraffin-embedded. Some or all of the immunohistochemical tests reported herein may have been developed and their performance characteristics determined by [facility]. They have not been cleared or approved by the U.S. Food and Drug Administration (FDA). However, the FDA has determined that such clearance or approval is not necessary. This laboratory is certified under the Clinical Laboratory Improvement Amendments of 1988 (CLIA) as qualified to perform high complexity clinical laboratory testing. Copies To: [place] [address] Kaden Jett MD [facility] [address] [place] [address] Drive [address] [place] [address] CONTINUED ON NEXT PAGE ----- ------- Name: Shruti Winters Age/Sex: 39/F : 1985 Unit#: [id number] Attend Dr: Kaden Jett MD Re02/14/25 Status: [facility] Location: [facility] Disch: ----- ------- SPEC : [id number] RECD: 02/17/25 STATUS: ROMI RIVERA NUM: [id number] MEÑO: 02/14/[address] [facility] [address]: Kaden Jett MD ENTERED: 02/17/25 SP TYPE: Surgical OTHR DR: Lu Estrada MD ORDERED: HE Stain/2, Gross Micro L4 Copies To: (Continued) [phone] ----- ------- Signed (signature on file) Shefali Martinez MD 02/18/25 1058 ----- ------- END OF REPORT us Generic External Data Provider LAB BLOOD ORDERAB LES Final Result [facility] [address] [place] [phone] * HCG, Qualitative, Urine (02/14/2025 10:30 AM EST) Urine NEGATIVE NEGATIVE [facility] Comment:This test was develo ped to detect early . Falsenegative results may occur after the 5th - 7th week ofpregnancy when using this test method. If clinicallyindicated, consider a serum hCG. 02/14/2025 10:3 0 AM EST 02/14/2025 11:07 AM EST us Generic External Data Provider LAB URINE ORDERAB LES Final Result Performing Organization Address City/[facility] Co de Phone Number [facility] [address] [place] [phone] * TSH W/Reflex to FT4 (01/16/2025 2:22 PM EDT) Pathologist [facility] TSH reflex Free T4 0.91 0.32 - 4.0 uIU/mL [facility] Blood Venous blood specimen / Unknown 01/16/2025 2:22 PM EDT 01/16/2025 3:58 PM EDT us Joseph Mix MD LAB BLOOD ORDERABLES Final Resul t Performing Organization Address City/[facility] Co de Phone Number [facility] [address] [place] [phone] * (ABNORMAL) CBC auto differential (01/16/2025 2:22 PM EDT) [facility] White Blood Count 5.6 4.8 - 10.8 X10*3/uL [facility] Red Blood Count 4.33 4.20 - 5.50 X10*6/uL [facility] Hemoglobin 12.4 12.0 - 16.0 g/dl [facility] Hematocrit 37.5 37.0 - 47.0 % [facility] Mean Corpuscular Volume 86.6 80.0 - 98.0 fL [facility] Mean Corpuscular Hemoglobin 28.6 27.0 - 33.0 pg [facility] Mean Corpuscular HGB Conc 33.1 31.0 - 35.0 g/dl [facility] Red Cell Distribution Width 13.8 11.0 - 16.0 % [facility] Platelet Count 241 160 - 400 X10*3/uL [facility] Mean Platelet Volume 10.6 9.4 - 12.3 fL [facility] Neutrophils Percent Auto 37.3(L) 45 - 73 % [facility] Imm Gran Pct Auto 0.2 0.0 - 0.4 % [facility] Lymphocytes Percent Auto 53.2(H) 20 - 40 % [facility] Monocytes Percent Auto 6.8 2 - 11 % [facility] Eosinophils Percent Auto 2.0 0 - 4 % [facility] Basophils Percent Auto 0.5 0 - 2 % [facility] NRBC Pct Auto 0.0 0.0 - 0.2 /100WBC [facility] Neutrophils Absolute Auto 2.1 2.0 - 8.3 x10*3/uL [facility] Imm Gran Abs Auto 0.01 0.00 - 0.03 X10*3/uL [facility] Lymphocytes Absolute Auto 3.0 1.2 - 4.9 X10*3/uL [facility] Monocytes Absolute Auto 0.4 0.1 - 1.2 X10*3/uL [facility] Eosinophils Absolute Auto 0.1 0.0 - 0.4 X10*3/uL [facility] Basophils Absolute Auto 0.0 0.0 - 0.2 X10*3/uL [facility] NRBC Abs Auto 0.000 0.0 - 0.012 X10*3/uL [facility] Blood Venous blood specimen / Unknown 01/16/2025 2:22 PM EDT 01/16/2025 3:58 PM EDT us Joseph Mix MD LAB BLOOD ORDERABLES Final Resul t [facility] [address] [place] [phone] [phone] * (ABNORMAL) Basic Metabolic Panel (01/16/2025 2:22 PM EDT) Sodium 140 135 - 145 mmol/L [facility] Potassium 3.8 3.3 - 5.1 mmol/L [facility] Chloride 110(H) 96 - 108 mmol/L [facility] Carbon Dioxide 23 22 - 29 mmol/L [facility] Anion Gap 11(L) 12 - 20 [facility] Urea Nitrogen (BUN) 11 9 - 16 mg/dL [facility] Creatinine, Serum 0.78 0.5 - 1.4 mg/dL [facility] Estimated Glomerular Filt Rate >60 [facility] Comment:Chronic Kidney Disea se: Estimated GFR < 60 mL/min/1.85h1Rbvmgq Kidney Disease: Estimated GFR < 15 mL/min/1.73m2 Glucose 88 60 - 115 mg/dL [facility] Calcium 8.6 8.4 - 10.2 mg/dL [facility] Blood Venous blood specimen / Unknown 01/16/2025 2:22 PM EDT 01/16/2025 3:58 PM EDT us Joseph Mix MD LAB BLOOD ORDERABLES Final Resul t Performing Organization Address City/State/[facility] Co de Phone Number [facility] [address] [place] [phone] * US Pelvis Transvaginal (01/10/2025 3:03 PM EDT) Anatomical Region Laterality Modality Pelvis Ultrasound 01/10/2025 3:03 PM EDT Narrative 01/10/2025 4:02 PM EDT [place] [address] Ultrasound Report Signed Patient: Shruti Winters MR#: [id number] : 1985 Acct:[id number] Age/Sex: 39 / F ADM Date: 01/10/25 Loc: .US Attending Dr: Kaden Jett MD Ordering Physician: Kaden Jett MD Date of Service: 01/10/25 Procedure(s): US pelvic and transvaginal Accession Number(s): [id number] cc: Lu Estrada MD; Kaden Jett MD [...] 01/10/25 1558 DD/ 1503 TD/TT: 01/10/25 1525 Form Raiser: Procedure Note Donotuseinterpreter, Image - 01/10/[address] [address] Ultrasound Report Signed Patient: Ajay Winters#: [id number] : 1985Acct:[id number] Age/Sex: 39 / FADM Date: 01/10/25 Loc: .US Attending Dr: Kaden Jett MD Ordering Physician: Kaden Jett MD Date of Service: 01/10/25 Procedure(s): US pelvic and transvaginal Accession Number(s): [id number] cc: Lu Estrada MD; Kaden Jett MD [...] 01/10/25 1558 DD/ 1503 TD/TT: 01/10/25 1525 Form Raiser: [facility] External Provider IMG US PROCEDURES Final Result * (ABNORMAL) Lipid Panel with Reflex to Direct LDL (01/22/2024 3:20 PM EDT) Triglycerides 88 <150 mg/dL [facility] Comment:Desirable Triglyceri de: less than 150 mg/dLBorderline High Triglyceride 150-199 mg/dLHigh Triglyceride: 200-499 mg/dLVery High Triglyceride: greater than or equal to 5OO mg/dL Cholesterol 183 <200 mg/dL [facility] Comment:Desirable Cholestero l: less than 200 mg/dLBorderline High Cholesterol: 200-239 mg/dLHigh Cholesterol: greater than 239 mg/dL LDL Cholesterol Calculated 126(H) <100 mg/dL [facility] Comment:Desirable LDL: less than 100 mg/dLNear Optimal/Above Optimal LDL: 110- 129 mg/dLBorderline High LDL: 130-159 mg/dLHigh LDL: 160-189 mg/dLVery High LDL: greater than or equal to 190 mg/dL HDL Cholesterol 40(L) >40 mg/dL [facility] Comment:Desirable HDL: great er than 40 mg/dL Note: This HDL assay may give artificially low results in patients with liver disease. Blood 01/22/2024 3:20 PM EDT 01/22/2024 4:05 PM EDT Lu Estrada MD LAB BLOOD ORDERABLES Final Resul t [facility] [address] [place] [address] [phone] * ThinPrep Imaging Pap and HPV mRNA E6/E7 with Reflex to HPV 16,18/45 (12/05/2023 12:00 AM EDT) HPV 16 RNA [facility] HPV 18/45 RNA [facility] HPV nRNA E6/E7 Not Detected Not Detected [facility] Comment:Methodology: Transcr iption-Mediated AmplificationThis assay detects E6/E7 viral messenger RNA (mRNA) from 14high-risk HPV types (16,18,31,33,35,39,45,51,52,56,58,59,66,68).Cervical sources are required for HPV testing.If a vaginal source from a patient who has had atotal hysterectomy with removal of cervix wassubmitted, please contact the testing laboratoryfor alternative testing options.For additional information, please refer tohttp://education.Social IQ (Social Influence Quotient)/faq/RAY640v2(This link if provided for information/educational purposes only.)THIS TEST WAS PERFORMED AT:[employer] [place] [phone] MILLS MD SOURCE: SEE NOTE [facility] Comment:None given Report Status: [facility] Clinical Information: SEE NOTE [facility] Comment:None given LMP: SEE NOTE [facility] Comment:NONE GIVEN Prev. PAP: SEE NOTE [facility] Comment:NONE GIVEN Prev. BX: SEE NOTE [facility] Comment:NONE GIVEN Statement Of Adequacy: SEE NOTE [facility] Comment:Satisfactory for tahmina luation.Endocervical/transformation zone componentpresent. General Categorization: [facility] Interpretation/Result: SEE NOTE [facility] Comment:Cytology Results: Ne gative for intraepitheliallesion or malignancy. Cytology Comment SEE NOTE [facility] Comment:This Pap test has be en evaluated with computerassisted technology. Heel Cementer Machine: SEE NOTE [facility] Comment:[place], CT(ASCP)CT scre ening location: [address] [address] Review Heel Cementer Machine: TNP [facility] Pathologist TNP [facility] PAP Infection [facility] See Note SEE NOTE [facility] Comment:EXPLANATORY NOTE:The Pap is a screening test for cervical cancer. It isnot a diagnostic test and is subject to false negativeand false positive results. It is most reliable when asatisfactory sample, regularly obtained, is submittedwith relevant clinical findings and history, and whenthe Pap result is evaluated along with historic andcurrent clinical information. 12/05/2023 12/05/2023 Narrative [facility] - 12/11/2023 1:12 PM EDT SEE SCANNED RESULTS IN EMR us Generic External Data Provider LAB PATHOLOGY ORD ERABLES Final Result Performing Organization Address [facility]/ZIP Co de Phone Number [facility] [address] [place] [address] [phone] * HEPATITIS C AB W/REFL TO HCV RNA, QN, PCR (03/16/2020 4:32 PM EST) HEPATITIS C ANTIBODY NON-REACT CORA NON-REACT CORA [facility] INDEX 0.02 <1.00 [facility] Comment: HCV antibody was non-reactive. There is no laboratory evidence of HCV infection. In most cases, no further action is required. However, if recent HCV exposure is suspected, a test for HCV RNA (test code 49848) is suggested. For additional information please refer to http://education.Social IQ (Social Influence Quotient)/faq/SDM89u6 (This link is being provided for informational/ educational purposes only.) 03/16/2020 4:32 PM EST us Lu Estrada MD HISTORICAL/NON ORDERABLE LABS Fi nal Result Performing Organization Address City/[facility]/ZIP Co de Phone Number [facility] [address] * HIV 1/2 ANTIGEN/ANTIBODY,FOURTH GENERATION W/RFL (03/16/2020 4:32 PM EST) HIV-1/2 ANTIGEN AND ANTIBODIES, 4TH GENERATION W/ REFLEX NON-REACT CORA NON-REACT CORA [facility] Comment: HIV-1 antigen and HIV-1/HIV-2 [...] purpose. For additional information please refer to http://education.Social IQ (Social Influence Quotient)/faq/CBA531 (This link is being provided for informational/ educational purposes only.) The performance of this assay has not been clinically validated in patients less than 2 years old. 03/16/2020 4:32 PM EST us Lu Estrada MD LAB BLOOD ORDERABLES Final Resul t [facility] [address] from Last 3 Months or Most Recently Relevant to Health Maintenance Insurance [facility] C[place] Care Teams Sound Designer Relationship Specialty Start Date End Date Lu Estrada MD [address] [place] [phone] PCP - General Family Medicine 03/27/18
--- OUTSIDE RECORDS SUMMARY | 2025-03-25 18:58 | XMS_ITS | Encounter Summary ---
Author Organization [employer] Address [address] [facility] 7t [place] [address] Care Team Providers Care Mining Support Worker Name Role Phone Lu Estrada MD Primary Care Provider [phone] Reason for Visit * Reason Comments Med Refill Encounter Details Date Type Department Care Team ([facility] Contact Info) Description 03/09/2023 Refill [facility] MEDICINE [address] [place] [address] Lu Estrada MD [address] [place] [address] Social History Tobacco Use Types Packs/Day Years [...] 12:45 PM EDT Office Visit [facility] ADULT DENTAL [address] [place] [address] Raymon Heidi [address] [place] [address] documented as of this encounter Visit Diagnoses Not on filedocumented in this encounter Additional Health Concerns Assessment Noted Time PHQ-9 Depression Total Score: 0 03/08/20 23 11:18 AM EST documented as of this encounter Care Teams Mining Support Worker Relationship Specialty Start Date End Date Lu Estrada MD [address] [place] [address] PCP - General Family Medicine 03/27/18 documented as of this encounter
--- OUTSIDE RECORDS SUMMARY | 2025-03-25 18:59 | XMS_ITS | Encounter Summary ---
Author Organization [employer] Address [address] [place] [address] 7t [place] [address] Care Team Providers Care Faculty Criminal Justice Name Role Phone Lu Estrada MD Primary Care Provider Encounter Details Date Type Department Care Team ([facility] Contact Info) Description 10/17/2022 Abstract [facility] ADULT DENTAL [address] [place], [place] [phone] Raymon Heidi [address] [place] [address] Social History Tobacco Use Types Packs/Day Years [...] Upcoming Encounters Date Type Department Care Team ([facility] Contact Info) Description 07/29/2025 12:45 PM EDT Office Visit [facility] ADULT DENTAL [address] [place], [place] [phone] Heidi Ennis [address] [place] [address] documented as of this encounter Visit Diagnoses Not on filedocumented in this encounter Care Teams Faculty Criminal Justice Relationship Specialty Start Date End Date Lu Estrada MD [address] [place] [address] PCP - General Family Medicine 03/27/18 documented as of this encounter
--- OUTSIDE RECORDS SUMMARY | 2025-03-25 18:59 | XMS_ITS | Encounter Summary ---
Demographics Address [address] [facility] [address] [place] [address] Home Phone Work Phone Mobile Phone Email Address Preferred Language en Marital Status Single Jainism Affiliation Unknown Race Other Race Ethnic Group Unknown Author Organization [employer] Address [address] [facility] 7t [place] [address] Care Team Providers Care Laser Set Up Operator Name Role Phone Lu Estrada MD Primary Care Provider [phone] Reason for Visit * Reason Comments Med Refill Encounter Details Date Type Department Care Team ([facility] st Contact Info) Description 06/18/2022 Refill [facility] CHC MED & PEDS [address] [place] [address] Vandana Black, ANP 230 [place] [address] Social History Tobacco Use Types Packs/Day Years [...] 07/29/2025 12:45 PM EDT Office Visit [facility] ADULT DENTAL [address] [place] [address] Raymon, Heidi 230 [place] [address] documented as of this encounter Visit Diagnoses Not on filedocumented in this encounter Care Teams Laser Set Up Operator Relationship Specialty Start Date End Date Lu Estrada MD 230 [place] [address] PCP - General Family Medicine 03/27/18 documented as of this encounter
--- OUTSIDE RECORDS SUMMARY | 2025-03-25 18:59 | XMS_ITS | Encounter Summary ---
Author Organization [employer] Address [address] [place] [address] 7t [place] [address] Care Team Providers Care Distribution Tech Name Role Phone Lu Estrada MD Primary Care Provider [phone] Reason for Visit * Reason Onset Date Comments Appointment Request 12/23/2022 Derm Encounter Details Date Type Department Care Team ([facility] Contact Info) Description 12/23/2022 Telephone [facility] MEDICINE [address] [place] [address] Lu Estrada MD [address] [place] [address] Appointment Request (Derm ) Social History Tobacco [...] Description 07/29/2025 12:45 PM EDT Office Visit [facility] ADULT DENTAL [address] [place], [place] [phone] Raymon, Heidi 230 [place] [address] documented as of this encounter Visit Diagnoses Not on filedocumented in this encounter Care Teams Distribution Tech Relationship Specialty Start Date End Date Lu Estrada MD [address] [place], [place] [phone] PCP - General Family Medicine 03/27/18 documented as of this encounter
--- OUTSIDE RECORDS SUMMARY | 2025-03-25 18:59 | XMS_ITS | Encounter Summary ---
Author Organization [employer] Address [address] [facility] 7t [place] [address] Care Team Providers Care Transcription Manager Name Role Phone Lu Estrada MD Primary Care Provider [phone] Reason for Visit * Reason Comments Med Refill Encounter Details Date Type Department Care Team ([facility] st Contact Info) Description 03/09/2023 Refill [facility] MEDICINE [address] [place] [address] Lorir Eduardo, [address] [place] [address] Social History Tobacco Use Types Packs/Day Years [...] [facility] [address] [place] [address] Raymon, Heidi [address] [place] [address] documented as of this encounter Visit Diagnoses Not on filedocumented in this encounter Additional Health Concerns Assessment Noted Time PHQ-9 Depression Total Score: 0 03/08/20 23 11:18 AM EST documented as of this encounter Care Teams Transcription Manager Relationship Specialty Start Date End Date Lu Estrada MD [address] [place] [address] PCP - General Family Medicine 03/27/18 documented as of this encounter
--- OUTSIDE RECORDS SUMMARY | 2025-03-25 18:59 | XMS_ITS | Encounter Summary ---
Demographics Address [address] [facility] [address] [place] [address] Home Phone Work Phone Mobile Phone Email Address Preferred Language en Marital Status Single Voodoo Affiliation Unknown Race Other Race Ethnic Group Unknown Author Organization [employer] Address [address] [facility] 7t [place] [address] Care Team Providers Care Critical Care Technician Name Role Phone Lu Estrada MD Primary Care Provider [phone] Encounter Details Date Type Department Care Team ([facility] st Contact Info) Description 04/30/2024 Orders Only [facility] MEDICINE [address] [place] [address] Lu Estrada MD 230 [place], [place] [phone] Abnormal CT of the abdomen (Primary Dx); [...] Visit [facility] ADULT DENTAL [address] [place] [address] Raymon, Heidi [address] [place] [address] documented as of this encounter Procedures Procedure Name Priority Date/Time Associated Diagnosis Comments BI MAMMOGRAM DIAGNOSTIC TOMOSYNTHESIS BILATERAL Routine 06/07/2024 10:00 AM EDT documented in this encounter Results * BI Mammogram Diagnostic Tomosynthesis Bilateral (06/07/2024 10:00 AM EDT) Anatomical Region Laterality Modality Breast Bilateral Mammography 06/07/2024 10:0 0 AM EDT Narrative 06/07/2024 11:42 AM EDT [facility] [address] [place] [address] Mammography Report Signed Patient: Shruti Winters MR#: [id number] : 1985 Acct:[id number] Age/Sex: 39 / F ADM Date: 06/07/24 Loc: HO.MAMMO Attending Dr: Lu Estrada MD Ordering Physician: Lu Estrada MD Results: 1Negative Date of Service: 06/07/24 Follow Up: Mammo at 42 or e arlier if clinically needed Procedure(s): MM tomosynthesis diagnostic BI Accession Number(s): [id number] cc: Lu Estrada MD EXAMINATION: MM DIAGNOSTIC [...] DO 06/07/2024 11:39 AM EDT Dictated By: Dveora Caal DO Signed By: <Electronically signed by Devora Caal DO in OV> 06/07/24 1139 DD/ 1000 TD/TT: 06/07/24 1018 Cloth Brushing And Sueding Supervisor: Procedure Note Donotuseinterpreter, Image - 06/07/2024 [facility] [address] [place] [address] Dr. Webber, [place] [address] Mammography Report Signed Patient: Ajay Winters#: [id number] : 1985Acct:[id number] Age/Sex: 39 / FADM Date: 06/07/24 Loc: HO.MAMMO Attending Dr: Lu Estrada MD Ordering Physician: Lu Estrada MDResults: 1Negative Date of Service: 06/07/24Follow Up: Mammo at 42 or e arlier if clinically needed Procedure(s): MM tomosynthesis diagnostic BI Accession Number(s): [id number] cc: Lu Estrada MD EXAMINATION: MM DIAGNOSTIC [...] 06/07/24 1139 DD/ 1000 TD/TT: 06/07/24 1018 Cloth Brushing And Sueding Supervisor: Lu Estrada MD IMG BI PROCEDURES Final [...] documented as of this encounter Care Teams Critical Care Technician Relationship Specialty Start Date End Date Lu Estrada MD [address] [place] [address] PCP - General Family Medicine 03/27/18 documented as of this encounter
--- OUTSIDE RECORDS SUMMARY | 2025-03-25 18:59 | XMS_ITS | Encounter Summary ---
Author Organization [employer] Address [address] [place] [address] 7t [place] [address] Care Team Providers Care Grease And Tallow Pumper Name Role Phone Lu Estrada MD Primary Care Provider [phone] Reason for Visit * Reason Comments Med Refill Encounter Details Date Type Department Care Team ([facility] Contact Info) Description 04/22/2022 Refill [facility] CHC MED & PEDS [address] [place] [address] Vandana Black, ANP [address] [place] [address] Social History Tobacco Use Types Packs/Day Years [...] Upcoming Encounters Date Type Department Care Team ([facility] Contact Info) Description 07/29/2025 12:45 PM EDT Office Visit [facility] ADULT DENTAL [address] [place] [address] Mc Ennisaris [address] [place] [address] documented as of this encounter Visit Diagnoses Not on filedocumented in this encounter Care Teams Grease And Tallow Pumper Relationship Specialty Start Date End Date Lu Estrada MD [address] [place] [address] PCP - General Family Medicine 03/27/18 documented as of this encounter
--- OUTSIDE RECORDS SUMMARY | 2025-03-25 18:59 | XMS_ITS | Encounter Summary ---
Author Organization [employer] Address [address] [place] [address] 7 [place] [address] Care Team Providers Care Rehabilitation Center Manager Name Role Phone Lu Estrada MD Primary Care Provider [phone] Reason for Visit * Reason Comments Med Refill Encounter Details Date Type Department Care Team (Late Contact Info) Description 06/08/2022 Refill [facility] MEDICINE [address] [place] [address] Danny Lundy MD [address] [place] [address] Social History Tobacco Use Types Packs/Day Years [...] 07/29/2025 12:45 PM EDT Office Visit [facility] ADULT DENTAL [address] [place] [address] Heidi Ennis [address] [place] [address] documented as of this encounter Visit Diagnoses Not on filedocumented in this encounter Care Teams Rehabilitation Center Manager Relationship Specialty Start Date End Date Lu Estrada MD [address] [place] [address] PCP - General Family Medicine 03/27/18 documented as of this encounter
--- OUTSIDE RECORDS SUMMARY | 2025-03-25 18:59 | XMS_ITS | Encounter Summary ---
Author Organization [employer] Address [address] [facility] 7t [place] [address] Care Team Providers Care Manager Heavy Equipment Name Role Phone Lu Estrada MD Primary Care Provider [phone] Reason for Visit * Reason Onset Date Comments Appointment 07/05/2022 Encounter Details Date Type Department Care Team ([facility] st Contact Info) Description 07/05/2022 Telephone [facility] ADULT DENTAL [address] [place] [address] Raymon, Heidi [address] [place] [address] Appointment Social History Tobacco Use Types Packs/Day [...] 07/29/2025 12:45 PM EDT Office Visit [facility] ADULT DENTAL [address] [place], [place] [phone] Raymon, Heidi [address] [place], [place] [phone] documented as of this encounter Visit Diagnoses Not on filedocumented in this encounter Care Teams Manager Heavy Equipment Relationship Specialty Start Date End Date Lu Estrada MD [address] [place], [place] [phone] PCP - General Family Medicine 03/27/18 documented as of this encounter
--- OUTSIDE RECORDS SUMMARY | 2025-03-25 18:59 | XMS_ITS | Encounter Summary ---
Author Organization [employer] Address [address] [place] [address] 7t [place] [address] Care Team Providers Care Guest Laundry Attendant Name Role Phone Lu Estrada MD Primary Care Provider [phone] Encounter Details Date Type Department Care Team ([facility] Contact Info) Description 10/17/2022 Abstract [facility] ADULT DENTAL [address] [place], [place] [phone] Raymon Heidi [address] [place] [address] Social History Tobacco Use Types Packs/Day Years [...] Upcoming Encounters Date Type Department Care Team ([facility] Contact Info) Description 07/29/2025 12:45 PM EDT Office Visit [facility] ADULT DENTAL [address] [place], [place] [phone] Heidi Ennis [address] [place] [address] documented as of this encounter Visit Diagnoses Not on filedocumented in this encounter Care Teams Guest Laundry Attendant Relationship Specialty Start Date End Date Lu Estrada MD [address] [place] [address] PCP - General Family Medicine 03/27/18 documented as of this encounter
--- OUTSIDE RECORDS SUMMARY | 2025-03-25 18:59 | XMS_ITS | Encounter Summary ---
Demographics Address [address] [facility] [address] [place] [address] Home Phone Work Phone Mobile Phone Email Address Preferred Language en Marital Status Single Taoism Affiliation Unknown Race Other Race Ethnic Group Unknown Author Organization [employer] Address [address] [facility] [address] [place] [address] Care Team Providers Care Natural Science Curator Name Role Phone Lu Estrada MD Primary Care Provider [phone] Reason for Visit * Reason Comments Med Refill Encounter Details Date Type Department Care Team ([facility] Contact Info) Description 03/09/2023 Refill [facility] CHC MED & PEDS [address] [place] [address] Vandana Black, ANP [address] [place] [address] Social History Tobacco Use Types Packs/Day Years [...] [facility] ADULT DENTAL [address] [place] [address] Raymon Heidi [address] [place] [address] documented as of this encounter Visit Diagnoses Not on filedocumented in this encounter Additional Health Concerns Assessment Noted Time PHQ-9 Depression Total Score: 0 03/08/20 23 11:18 AM EST documented as of this encounter Care Teams Natural Science Curator Relationship Specialty Start Date End Date Lu Estrada MD [address] [place] [address] PCP - General Family Medicine 03/27/18 documented as of this encounter
== END 2025-03-25 16:17 | disposition home or self-care (01) ==
PROVIDERS: Visit Provider Obstetrics & Gynecology
DX: R31.29 Other microscopic hematuria (principal)
CPT/HCPCS: 99213